=== PATIENT | male | born 1950 | race Caucasian/White ===

== ENCOUNTER 2020-08-28 07:59 | Day surgery (SDC) | payer MEDICARE, SELFPAY ==
[2020-08-25 20:43] VITALS: BMI 60.3
--- NOTE | 2020-08-27 10:51 | P.CONAN_ITS ---
Documented by User: Deisi Luevano 08/27/20 10:57 HPI - Anesthesia Eval Consult details Narrative: 70yo M for colonoscopy: screening [facility] Past Medical History Medical History Arthritis Back pain Bone spur of ankle Diabetes Hyperlipidemia Hypertension Sleep apnea with use of continuous positive airway pressure (CPAP) Surgical History Surgical History History of colonoscopy Hx of laparoscopic gastric banding Social History Social History Smoking Status: Never smoker Use of substances other than those prescribed or required for medical reasons: No Advance Directives: No Advance Directives Information Provided: No Advance Directives on File: No Meds Allergies Allergy/AdvReac Type Severity Reaction Status Date / Time No Known Allergies Allergy Verified 08/25/20 20:52 [No Known Allergies*] Home Medications Medication Instructions Recorded Confirmed Type Aspirin Low Dose 81 mg PO DAILY 08/25/20 08/25/20 History acetaminophen 1,000 mg PO DAILY 08/25/20 08/25/20 History amlodipine 1 tab PO DAILY 08/25/20 08/28/20 History atorvastatin 1 tab PO DAILY 08/25/20 08/25/20 History lisinopril-hydrochlorothiazide 1 tab PO BID 08/25/20 08/25/20 History metformin 1 tab PO BEDTIME 08/25/20 08/25/20 History Exam Exam Date and Time: August 27, 2020 1051 Height,Weight and Vital Signs: Height 6 ft 4 in Weight 225 kg Assessment and Plan Assessment Anesthesia Assessment: Chart Reviewed Documented by User: Melania Garcia 08/28/20 09:57 [facility] Past Medical History Medical History Arthritis Back pain Bone spur of ankle Diabetes Hyperlipidemia Hypertension Sleep apnea with use of continuous positive airway pressure (CPAP) Surgical History Surgical History History of colonoscopy Hx of laparoscopic gastric banding Social History Social History Smoking Status: Never smoker Use of substances other than those prescribed or required for medical reasons: No Advance Directives: No Advance Directives Information Provided: No Advance Directives on File: No Meds Allergies Allergy/AdvReac Type Severity Reaction Status Date / Time No Known Allergies Allergy Verified 08/25/20 20:52 [No Known Allergies*] Home Medications Medication Instructions Recorded Confirmed Type Aspirin Low Dose 81 mg PO DAILY 08/25/20 08/25/20 History acetaminophen 1,000 mg PO DAILY 08/25/20 08/25/20 History amlodipine 1 tab PO DAILY 08/25/20 08/28/20 History atorvastatin 1 tab PO DAILY 08/25/20 08/25/20 History lisinopril-hydrochlorothiazide 1 tab PO BID 08/25/20 08/25/20 History metformin 1 tab PO BEDTIME 08/25/20 08/25/20 History Exam Airway Mallampati Class: II TM Dist: >3cm Neck ROM: Full Assessment and Plan Assessment Anesthesia Assessment: Anesthesia Plan Discussed and Chart Reviewed Final Anesthetic Review NPO: Yes ASA Class: II Final Preanesthetic Review: No Changes in Pt Med Stat, Meds/Allgs Chart Reviewed, Consent Obtained/Reviewed and Anes Risks/Benef Reviewed Patient Risk: Intermediate Procedure Risk: Low Assessment/Block/Sedation in SS: Assess/Block/Sedation-SS Anesthetic Plan Anesthetic Plan: MAC: Disposition: Standard PACU
[2020-08-28 09:29] VITALS: BP 147/68; PULSE 64; RESP 16; TEMP 36.2; O2SAT 100
[2020-08-28 09:30] LABS: Glucose, Whole Blood 96 mg/dL (60-115)
[2020-08-28] MEDS: Lactated Ringers 1,000 ML 100 ML IVCONT (09:39)
--- NOTE | 2020-08-28 10:03 | MHC.SHP ---
Pre-Procedural Eval Section A The patient is an INPATIENT: No Changes since office visit: No Cold of Flu in the past 2 weeks, No New Medical Problems, No Changes in Medication and No Patient answered all questions The History & Physical has been completed within 30 days and I have reviewed it.: Yes Section B Chief Complaint: SCREENING Allergies: Allergies Allergy/AdvReac Type Severity Reaction Status Date / Time No Known Allergies Allergy Verified 08/25/20 20:52 [No Known Allergies*] Plan Patient has been examined and remains a candidate for the planned procedure
[2020-08-28 10:30] VITALS: BP 90/46; PULSE 67; RESP 16; TEMP 36.2; O2SAT 98
--- NOTE | 2020-08-28 10:34 | PM.OP ---
Brief Operative Note Date of procedure: 08/28/20 Pre-op diagnosis: screening Post-op diagnosis: same Procedure: colonoscopy Surgeon: Thaddeus Valencia Anesthesia: MAC Estimated blood loss (mL): 0 Pathology: none sent Condition: stable Disposition: PACU
[2020-08-28 10:43] VITALS: BP 103/58; PULSE 62; RESP 16; O2SAT 98
[2020-08-28 10:52] VITALS: BP 113/71; PULSE 68; RESP 16; TEMP 36.1; O2SAT 99
--- NOTE | 2020-08-28 10:53 | OP_ITS ---
SURGEON: Thaddeus Valencia MD INDICATIONS: Colon cancer screening. PREOPERATIVE DIAGNOSIS: POSTOPERATIVE DIAGNOSIS: PROCEDURE PERFORMED: Colonoscopy to the terminal ileum. ESTIMATED BLOOD LOSS: COMPLICATIONS: ANESTHESIA: ASSISTANTS: SPECIMENS: MEDICATIONS: Monitored anesthesia care. DESCRIPTION OF PROCEDURE: History and physical performed. The risks and benefits of the procedure were explained to the patient, and informed consent was obtained. The patient was placed in left lateral decubitus position. A digital rectal exam was performed and was found to be normal. The Olympus pediatric video colonoscope was introduced into the rectum and advanced to the cecum without difficulty. The cecum was identified by transillumination, palpation, and identification of ileocecal valve. Examination was performed. The scope was removed. He tolerated the procedure well and was taken to the recovery in stable condition. FINDINGS: The terminal ileum was normal. The visualized colonic mucosa was within normal limits without evidence of masses or ulcers. The quality of the prep was good. No polyps were identified. Retroflexed examination showed internal hemorrhoids. IMPRESSION: Normal colonoscopy. RECOMMENDATIONS: 1. Follow up as needed. 2. Repeat colonoscopy is recommended in 10 years for average risk individuals. This is optional based on age. MD ALESHIA Reeves/JENNIFER / [id number]
--- NOTE | 2020-08-28 11:18 | HO.POSTANES ---
Post Anesthesia Evaluation Post Anesthesia Evaluation Vital Signs: Vital Signs Temp Pulse Resp BP Pulse Ox 08/28/20 10:52 97 F 68 16 113/71 99 08/28/20 10:43 62 16 103/58 L 98 08/28/20 10:30 97.1 F 67 16 90/46 L 98 08/28/20 09:29 97.1 F 64 16 147/68 H 100 Anesthesia: Monitored Mental Status: Awake Pain Control: Satisfactory Nausea/Vomiting: None Hydration: Adequate Anesthesia-Related Issues: No Anes. Related Issues
== END 2020-08-28 11:36 | disposition home or self-care (01) ==
PROVIDERS: PCP Internal Medicine; Visit Provider Internal Medicine Gastroenterology
PROC: 0DJD8ZZ Inspection of Lower Intestinal Tract, Via Natural or Artificial Opening Endoscopic (ICD-10-PCS; CPT 45378; principal; 2020-08-28 10:00)
DX: I10 Essential (primary) hypertension (principal); Z12.11 Encounter for screening for malignant neoplasm of colon; K64.8 Other hemorrhoids; E78.00 Pure hypercholesterolemia, unspecified; I12.9 Hypertensive chronic kidney disease with stage 1 through stage 4 chronic kidney disease, or unspecified chronic kidney disease; E11.22 Type 2 diabetes mellitus with diabetic chronic kidney disease; N18.9 Chronic kidney disease, unspecified; Z79.84 Long term (current) use of oral hypoglycemic drugs; Z98.84 Bariatric surgery status; Z79.899 Other long term (current) drug therapy; Z87.891 Personal history of nicotine dependence
CPT/HCPCS: G0121; 82947

== ENCOUNTER 2020-12-25 11:01 | Outpatient (REF) | payer MEDICARE, SELFPAY ==
[2020-12-25 12:37] LABS: Alanine Aminotransferase 13 U/L (0-40); Albumin Level 4.2 g/dL (3.5-5.0); Alkaline Phosphatase 82 U/L (39-117); Aspartate Amino Transferase 15 U/L (5-37); Bilirubin Direct 0.3 mg/dL (0.0-0.5); Bilirubin Total 0.6 mg/dL (0.0-1.0); Cholesterol 137 mg/dL; Glucose Fasting 146 mg/dL (60-99); HDL Cholesterol 48 mg/dL; LDL Cholesterol Calculated 77 mg/dl; Total Protein 7.1 g/dL (6.5-8.0); Triglycerides 60 mg/dL
[2020-12-25 12:43] LABS: Reflex LDLD? No
[2020-12-25 13:25] LABS: Estimated Average Glucose 160 mg/dL; Hemoglobin A1c % 7.2 %
== END 2020-12-25 11:02 | disposition home or self-care (01) ==
LOC: HO.LNP 11:01
PROVIDERS: PCP Internal Medicine; Visit Provider Internal Medicine
DX: E11.40 Type 2 diabetes mellitus with diabetic neuropathy, unspecified (principal); E78.00 Pure hypercholesterolemia, unspecified
CPT/HCPCS: 80061; 80076; 82947; 83036

== ENCOUNTER → 2021-02-24 09:29 | Outpatient (BNVA) | payer MEDICARE, SELFPAY | PROVIDERS: PCP Internal Medicine; Visit Provider Internal Medicine | DX: R94.31 Abnormal electrocardiogram [ECG] [EKG] (principal); I35.0 Nonrheumatic aortic (valve) stenosis; E11.8 Type 2 diabetes mellitus with unspecified complications; I10 Essential (primary) hypertension; E78.5 Hyperlipidemia, unspecified | CPT/HCPCS: 93005; 99202 ==

== ENCOUNTER → 2021-04-22 07:14 | Outpatient (REF) | payer MEDICARE, SELFPAY ==
--- NOTE | ~2021-04-22 | NM_ITS ---
EXERCISE MYOCARDIAL PERFUSION STUDY INDICATION: Multiple risk factors for coronary disease; assess for ischemia TECHNIQUE: The patient was brought in for an exercise perfusion study on 04/22/2021. Patient performed exercise as per Jorgito protocol and was injected 35 mCi of sestamibi once target heart rate was achieved. Images were obtained using the SPECT gamma camera interlaced with the gating device. Images were obtained in supine position. Resting perfusion study was performed on 04/23/2021. Patient was administered 35 mCi of sestamibi intravenously at rest. Images were then obtained in supine position. Total DLP 84mGy-cm. Images were processed with the software and compared side to side in short axis, horizontal long axis and vertical long axis views. FINDINGS: Raw images were reviewed. The stress perfusion study showed diminished tracer uptake along the basal inferior wall. With CT attenuation correction this improves and hence suggestive of diaphragmatic attenuation artifact. The gated study shows mildly diminished LV systolic function with calculated LVEF of 49%. LV cavity is normal in size. The gated study shows normal wall thickening and contraction of segments. Resting study shows diminished tracer uptake along the basal inferior wall that improves with CT attenuation correction and hence suggesting diaphragmatic artifact. Gating at rest reveals normal wall motion with ejection fraction at 63%. The findings are consistent with fixed basal inferior defect suspected to be from diaphragmatic attenuation artifact. VA/VA cardiolite stress test IMPRESSION: 1. Myocardial perfusion imaging study shows normal myocardial perfusion. No definitive evidence of any ischemia or infarction. 2. Gated LVEF is 49% during stress and 63% during rest. Correlate with echocardiogram. 3. Transient ischemic dilatation not present. EKG component of the test reported separately.
--- NOTE | 2021-04-22 07:17 | CA_ITS ---
Transthoracic Echocardiogram Patient (Last, First, Middle): Nam King J Gender: Male Date of : 1950 Age: 71 Procedure Date: 04/22/2021 Procedure Type: Transthoracic Echocardiogram Location: OP Height: 193.04 cm Weight: 106.14 kg BSA: 2.37 m2 Heart Rate: bpm BP: 144 / 72 mmHg Cardiopulmonary Specialist: Gisel MD: Oral Escudero MD Symptoms: R94.31 - Abnormal electrocardiogram [ECG] [EKG] Study Quality: Fair ECG Rhythm: Sinus Conclusions: - The left ventricular systolic function is normal. The calculated ejection fraction is 61% by biplane method. - There is mild calcification of the aortic valve. - There is mild mitral annular calcification. Findings Left Ventricle Normal left ventricular cavity size. There is mildly increased left ventricular wall thickness. The left ventricular systolic function is normal. The calculated ejection fraction is 61% by biplane method. There is no evidence of regional wall motion abnormalities. E/E prime ratio is between 8 and 15 consistent with indeterminate filling pressures. Evidence suggests grade I (mild) diastolic dysfunction. Right Ventricle Normal right ventricular cavity size and systolic function. Atria Both atria are normal in size. Aortic Valve There is a normal trileaflet aortic valve. There is mild calcification of the aortic valve. There is no aortic valve stenosis. The mean gradient is 9 mmHg. There is no aortic valve regurgitation. Mitral Valve There is mild anterior mitral leaflet thickening. There is mild mitral annular calcification. There is trace mitral valve regurgitation. There is no mitral valve stenosis. Pulmonic Valve The pulmonic valve is likely normal. Tricuspid Valve Normal tricuspid valve structure. There is no tricuspid valve regurgitation. The pulmonary artery systolic pressure is not calculated. Great Vessels The asc aorta and aortic arch are normal in size. Venous The inferior vena cava is normal in size and collapses greater than 50% with inspiration. Pericardium/Pleural There is no evidence of pericardial effusion. Prior Study Comparison No prior study available for comparison. Measurements 2D Linear Measurements RVIDd: 3.32 RVIDd Index: 1.40 IVSd: 1.03 0.6-0.9/0.6-1.0 cm LVIDd: 4.97 3.9-5.3/4.2-5.9 cm LVIDd Index: 2.10 2.4-3.2/2.2-3.1 cm/m2 LVIDs: 3.40 2.0-3.6 cm LVPWd: 1.23 0.7-1.1 cm Ao Root: 3.30 2.1-3.5 cm LA Diam: 4.40 2.7-3.8/3.0-4.0 cm LAIDs Index: 1.86 1.5-2.3 cm/m2 LV Mass: 265.38 67-162/88-224 g LV Mass Index: 111.97 43-95/49-115 g/m2 LVOT Diam: 2.10 3.0+(-)1.3 cm 2D Systolic Function EF 4C: 59.60 >55% EF 2C: 66.40 >55% EF BiP: 61.40 >55% Mitral Valve MV VTI: 0.44 MV Pk Clive: 1.21 MV Mn Clive: 0.82 MV Pk Grad: 6.00 MV Mn Grad: 3.00 MV Pk E: 0.83 MV PK A: 1.10 MV Decel Time: 295.00 E/A: 0.80 E'Lateral: 6.64 E'Medial: 4.79 E/E' Med: 17.30 E/E' Lat: 12.50 PHT: 109.00 MVA PHT: 2.02 MVA Continuity: 2.07 Decel Miner: 2.78 Aortic Valve AoV Pk Clive: 2.01 AoV Mn Clive: 1.41 AoV VTI: 0.43 AoV Pk Grad: 16.00 Aov Mn Grad: 9.00 JENNIFER Cont.VTI: 2.12 LVOT LVOT Pk Clive: 1.11 LVOT Mn Clive: 0.77 LVOT VTI: 0.26 LVOT Pk Grad: 5.00 LVOT Mn Grad: 3.00 LVOT Diam: 2.10 LVOT Area: 3.46 Diastolic Function MV Pk E: 0.83 MV Pk A: 1.10 E/A: 0.80 E'Medial: 4.79 E/E' Med: 17.30 E' Laterial: 6.64 E/E' Lat: 12.50 Tricuspid Valve RA Press: 3.00 Great Vessels Aorta Ao Root-2D: 3.30 2.0-3.7 cm Ao Asc: 3.10 2.1-3.4 cm Ao Arch: 3.20 Updated in Other Vendor System with Status of Final Oral Escudero MD electronically signed on 04/24/2021 12:38:40 PM with status of Final
--- NOTE | 2021-04-22 07:19 | CA_ITS ---
Acquisition Time: 2021-04-22 08:15:38 Total Exercise Time: 00:07:45 Test Indications: ABN EKG Medications: SEE CHART Protocol: NAIMA Max HR: 146 BPM 98% of Pred: 148 BPM Max BP: 204/070 mmHG Max Work Load: 9.7 METS Exercise stress test with exercise 7 min 45 sec of Naima protocol, without anginal symptoms, with isolated PVCs, with hypertensive response to exercise with max BP 204/70, with nondiagnostic EKG for ischemia due to baseline abnormality. Nuclear images pending. Test reviewed with Dr Escudero Referred By: Oral Escudero Overread By: JOHANNA CARDOZA
--- NOTE | 2021-04-22 08:00 | ECG_ITS ---
Hook-up date: 2021-04-22 09:39:00 Duration: 23:15:00 Test Indications: ABN EKG, NON-RHEUM AORTIC VALVE Medications: 70619 QRS complexes 1926 Ventricular ectopics which represent 1 % of total QRS comp. 3 Supraventricular ectopics which represent <1 % of total QRS comp. * Paced QRS complexs which represent % of total QRS comp. VENTRICULAR ECTOPY 1926 Isolated 9 Bigeminal Cycles 0 Couplets 0 Runs 0 Beats in Runs * Beats LONGEST at * BPM at :: -- * Beats FASTEST at * BPM at :: -- SUPRAVENTRICULAR ECTOPY 3 Isolated 0 Couplets 0 Runs 0 Beats in Runs * Beats LONGEST at * BPM at :: -- * Beats FASTEST at * BPM at :: -- HEART RATES 46 MIN at 04:05:58 2021-04-23 72 AVG 123 MAX at 10:49:58 2021-04-22 LONGEST RR 1.5680 secs at 04:05:51 2021-04-23 S-T LEVELS Channel 1 - 128 mm at 09:39:00 2021-04-22 - 128 mm at 09:39:00 2021-04-22 Channel 2 - 128 mm at 09:39:00 2021-04-22 - 128 mm at 09:39:00 2021-04-22 Channel 3 - 128 mm at 02:85:81 -- - 128 mm at 02:85:81 Basic rhythm Normal sinus rhythm No long pause or profound bradycardia Baseline BBB Frequent Premature ventricular complexes Patient did not report any symptoms in the diary Referred By: Oral Escudero Overread By: KATHRYN PELAYO MD
== END ==
LOC: HO.CARD 07:14
PROVIDERS: Visit Provider Internal Medicine
DX: R94.31 Abnormal electrocardiogram [ECG] [EKG] (principal); I35.0 Nonrheumatic aortic (valve) stenosis
CPT/HCPCS: 78452; 93017; 93225; 93226; 93306; A9500

== ENCOUNTER 2021-06-15 10:40 | Outpatient (REF) | payer MEDICARE, SELFPAY ==
[2021-06-15 10:43] LABS: MANUAL DIFF FLAG NO
[2021-06-15 11:19] LABS: Basophils Percent Auto 0.5 % (0-2); Eosinophils Absolute Auto 0.3 X10*3/uL (0.0-0.4); Eosinophils Percent Auto 5.2 % (0-4); Hematocrit 37.9 % (42-52); Hemoglobin 12.3 g/dl (14.0-18.0); Imm Gran Abs Auto 0.01 X10*3/uL (0.00-0.03); Imm Gran Pct Auto 0.2 % (0.0-0.4); Lymphocytes Absolute Auto 2.4 X10*3/uL (1.2-4.9); Lymphocytes Percent Auto 36.4 % (20-40); Mean Corpuscular HGB Conc 32.5 g/dl (31.0-36.0); Mean Corpuscular Hemoglobin 30.3 pg (27.0-33.0); Mean Corpuscular Volume 93.3 fL (80-98); Mean Platelet Volume 11.3 fL (9.4-12.4); Monocytes Absolute Auto 0.6 X10*3/uL (0.1-1.2); Monocytes Percent Auto 9.2 % (2-11); Neutrophils Absolute Auto 3.2 X10*3/uL (2.0-8.3); Neutrophils Percent Auto 48.5 % (45-73); Platelet Count 189 X10*3/uL (160-400); Red Blood Count 4.06 X10*6/uL (4.60-5.80); Red Cell Distribution Width 14.2 % (11.0-16.0); White Blood Count 6.6 X10*3/uL (4.8-10.8)
[2021-06-15 11:25] LABS: Estimated Average Glucose 169 mg/dL; Hemoglobin A1c % 7.5 %
[2021-06-15 11:33] LABS: Glucose Urine UA NEG (NEG); Leukocyte Esterase Urine NEG (NEG); Nitrite Urine NEG (NEG); Specific Gravity - Urine 1.025 (1.005-1.025); Urine Blood NEG (NEG); Urine Ketones NEG (NEG); Urine Protein NEG (NEG-TRACE)
[2021-06-15 11:52] LABS: Appearance Urine CLEAR; Color Urine YELLOW
[2021-06-15 11:56] LABS: Alanine Aminotransferase 16 U/L (0-40); Albumin Level 4.1 g/dL (3.5-5.0); Alkaline Phosphatase 64 U/L (39-117); Anion Gap 10 (12-20); Aspartate Amino Transferase 15 U/L (5-37); Bilirubin Total 0.4 mg/dL (0.0-1.0); Blood Urea Nitrogen 26 mg/dL (9-16); Calcium 9.5 mg/dL (8.4-10.2); Carbon Dioxide 30 mmol/L (22-29); Chloride 105 mmol/L (96-108); Cholesterol 135 mg/dL; Estimated Glomerular Filt Rate > 60; Glucose Fasting 135 mg/dL (60-99); HDL Cholesterol 49 mg/dL; LDL Cholesterol Calculated 73 mg/dl; Sodium 141 mmol/L (135-145); Total Protein 6.6 g/dL (6.5-8.0); Triglycerides 69 mg/dL
[2021-06-15 12:06] LABS: PSA,Total (Free>4and<10) 1.09 ng/mL (0.00-4.00)
[2021-06-15 12:11] LABS: Creatinine Urine 105.75 mg/dL; Microalbum/Creatinine Ratio Ur 15.1 ug/mg cr
[2021-06-15 12:41] LABS: Reflex LDLD? No
== END 2021-06-15 10:41 | disposition home or self-care (01) ==
LOC: HO.LNP 10:40
PROVIDERS: Visit Provider Internal Medicine
DX: Z00.00 Encounter for general adult medical examination without abnormal findings (principal); E11.9 Type 2 diabetes mellitus without complications; E78.00 Pure hypercholesterolemia, unspecified
CPT/HCPCS: 80053; 80061; 81003; 82043; 83036; 84153; 85025

== ENCOUNTER → 2021-06-17 07:45 | Outpatient (BNVA) | payer MEDICARE, SELFPAY | PROVIDERS: PCP Internal Medicine; Visit Provider Internal Medicine | DX: R94.31 Abnormal electrocardiogram [ECG] [EKG] (principal); I10 Essential (primary) hypertension; I35.8 Other nonrheumatic aortic valve disorders; E78.5 Hyperlipidemia, unspecified; E11.8 Type 2 diabetes mellitus with unspecified complications | CPT/HCPCS: 99212 ==

== ENCOUNTER 2021-07-16 10:34 | Outpatient (REF) | payer MEDICARE, SELFPAY ==
[2021-07-16 12:19] LABS: Blood Urea Nitrogen 24 mg/dL (9-16)
== END 2021-07-16 10:35 | disposition home or self-care (01) ==
LOC: HO.LNP 10:34
PROVIDERS: Visit Provider Internal Medicine
DX: R79.9 Abnormal finding of blood chemistry, unspecified (principal)
CPT/HCPCS: 84520

== ENCOUNTER 2021-10-15 10:11 | Outpatient (REF) | payer MEDICARE, SELFPAY ==
[2021-10-15 10:45] LABS: Blood Urea Nitrogen 27 mg/dL (9-16)
== END 2021-10-15 10:12 | disposition home or self-care (01) ==
LOC: HO.LNP 10:11
PROVIDERS: Visit Provider Internal Medicine
DX: R79.9 Abnormal finding of blood chemistry, unspecified (principal)
CPT/HCPCS: 84520

== ENCOUNTER 2021-11-15 10:47 | Outpatient (REF) | payer MEDICARE, SELFPAY ==
[2021-11-15 11:43] LABS: Blood Urea Nitrogen 31 mg/dL (9-16)
== END 2021-11-15 10:48 | disposition home or self-care (01) ==
LOC: HO.LNP 10:47
PROVIDERS: Visit Provider Internal Medicine
DX: R79.9 Abnormal finding of blood chemistry, unspecified (principal)
CPT/HCPCS: 84520

== ENCOUNTER 2021-12-17 11:00 | Outpatient (REF) | payer MEDICARE, SELFPAY ==
[2021-12-17 11:34] LABS: Alanine Aminotransferase 13 U/L (0-40); Albumin Level 4.5 g/dL (3.5-5.0); Alkaline Phosphatase 72 U/L (39-117); Aspartate Amino Transferase 15 U/L (5-37); Bilirubin Direct 0.3 mg/dL (0.0-0.5); Bilirubin Total 0.8 mg/dL (0.0-1.0); Cholesterol 136 mg/dL; Glucose Fasting 143 mg/dL (60-99); HDL Cholesterol 46 mg/dL; LDL Cholesterol Calculated 76 mg/dl; Total Protein 7.2 g/dL (6.5-8.0); Triglycerides 73 mg/dL
[2021-12-17 11:38] LABS: Estimated Average Glucose 166 mg/dL; Hemoglobin A1C 195.7168 umol/L; Hemoglobin A1c % 7.4 %
[2021-12-17 13:34] LABS: Reflex LDLD? No
== END 2021-12-17 11:01 | disposition home or self-care (01) ==
LOC: HO.LNP 11:00
PROVIDERS: Visit Provider Internal Medicine
DX: E11.9 Type 2 diabetes mellitus without complications (principal); E78.00 Pure hypercholesterolemia, unspecified
CPT/HCPCS: 80061; 80076; 82947; 83036

== ENCOUNTER 2022-02-15 12:20 | Outpatient (REF) | payer MEDICARE, SELFPAY ==
[2022-02-15 13:25] LABS: Blood Urea Nitrogen 19 mg/dL (9-16); Estimated Glomerular Filt Rate > 60
== END 2022-02-15 12:21 | disposition home or self-care (01) ==
LOC: HO.LNP 12:20
PROVIDERS: Visit Provider Internal Medicine
DX: R79.9 Abnormal finding of blood chemistry, unspecified (principal)
CPT/HCPCS: 82565; 84520

== ENCOUNTER → 2022-05-03 09:22 | Outpatient (BNVA) | payer MEDICARE, SELFPAY | PROVIDERS: PCP Internal Medicine; Visit Provider Surgery Vascular Surgery | DX: I83.12 Varicose veins of left lower extremity with inflammation (principal) | CPT/HCPCS: 99202 ==

== ENCOUNTER 2022-05-06 09:52 | Outpatient (REF) | payer MEDICARE, SELFPAY ==
--- NOTE | ~2022-05-06 | US_ITS ---
EXAMINATION: US LOWER EXTREMITY VENOUS (REFLUX EXAM), BILATERAL CLINICAL INDICATION: Chronic venous insufficiency with lower extremity varicose veins and inflammation. History of bilateral vein stripping COMPARISON: None. TECHNIQUE: Color flow triplex imaging and compression Doppler was performed to evaluate both the deep and the superficial systems bilaterally. To evaluate the superficial system, the examination was performed in the upright position. Color-flow Doppler ultrasound and compression ultrasound were utilized. In addition, maneuvers were utilized to demonstrate reflux. FINDINGS: 1. DEEP VENOUS ULTRASOUND OF THE RIGHT LOWER EXTREMITY: Common Femoral Vein: Compressible, normal respiratory variation and augmented flow. Femoral Vein: Compressible, normal color flow and augmentation. Popliteal Vein: Compressible, normal augmentation. Deep Reflux: There is reflux in the mid superficial femoral vein measuring 1.7 seconds There is no evidence of a Be's cyst. 2. SUPERFICIAL ULTRASOUND WITH DOPPLER OF RIGHT LOWER EXTREMITY: GREAT SAPHENOUS VEIN: Not visualized consistent with prior history of vein stripping DUPLICATED GREAT SAPHENOUS VEIN: None SMALL SAPHENOUS VEIN: Proximal: 1.3 mm; No evidence of reflux. Distal: Not visualized VEIN OF GIACOMINI: None Imaged. PERFORATORS: None Imaged VARICOSITIES: Multiple varicose veins are seen throughout to the right thigh and calf. There are some varicosities in the region of the old great saphenous vein sheath in the proximal to distal thigh which could represent neovascularity, measuring up to 3.2 mm with reflux measuring up to 3.2 seconds. There is a posterior varicose vein in the thigh, popliteal fossa and calf measuring 5 mm with reflux of greater than 3 seconds 3. DEEP VENOUS ULTRASOUND OF THE LEFT LOWER EXTREMITY: Common Femoral Vein: Compressible, normal respiratory variation and augmented flow. Femoral Vein: Compressible, normal color flow and augmentation. Popliteal Vein: Compressible, normal augmentation. Deep Reflux: There is reflux in the common femoral vein measuring 2.1 seconds. There is reflux in the mid superficial femoral vein measuring 1.8 seconds. There is no evidence of a Be's cyst. 4. SUPERFICIAL ULTRASOUND WITH DOPPLER OF LEFT LOWER EXTREMITY: GREAT SAPHENOUS VEIN: Not visualized consistent with prior vein stripping DUPLICATED GREAT SAPHENOUS VEIN: None SMALL SAPHENOUS VEIN: Proximal: 2.5 mm; No evidence of reflux. Distal: 2.3 mm; No evidence of reflux. VEIN OF GIACOMINI: None Imaged. PERFORATORS: None Imaged VARICOSITIES: Varicose vein branches arising directly from the saphenofemoral junction in the area of the groin measuring 8 8 mm with reflux measuring 2 seconds. Large varicosities are extending distally through the thigh, knee and into the calf ranging in size from a 2.9 to 6.2 mm. Severe reflux is seen throughout these varicosities ranging from 2.5 to 3.5 seconds. Multiple large varicosities are also seen throughout the thigh measuring 5 to 7 mm with reflux measuring up to 1.2 seconds. Varicose vein branches are seen arising from a second shift supervisor in the mid superficial femoral vein measuring 7 mm without reflux. Varicose veins seen in the left calf arising from a second shift supervisor vein off the posterior tibial vein measuring of 4.6 mm with reflux of greater than 3 seconds. Large varicosities seen in the posterior calf measuring 4.3 mm with reflux of greater than 3 seconds US/US venous duplex LE BI IMPRESSION: 1. No evidence of deep venous thrombosis bilaterally. There is evidence of moderate to deep venous reflux as described above 2. Bilateral great saphenous veins are not visualized consistent with history of prior vein stripping 3. Extensive the recurrent subcutaneous varicose veins throughout the bilateral lower extremities, left worse than right.
== END 2022-05-06 09:53 | disposition home or self-care (01) ==
LOC: HO.US 09:52
PROVIDERS: Visit Provider Surgery Vascular Surgery
DX: I83.12 Varicose veins of left lower extremity with inflammation (principal)
CPT/HCPCS: 93970

== ENCOUNTER → 2022-05-12 15:09 | Outpatient (BNVA) | payer MEDICARE, SELFPAY | PROVIDERS: PCP Internal Medicine; Visit Provider Surgery Vascular Surgery | DX: I83.12 Varicose veins of left lower extremity with inflammation (principal) | CPT/HCPCS: 99212 ==

== ENCOUNTER 2022-05-30 06:57 | Day surgery (SDC) | payer MEDICARE, SELFPAY ==
[2022-05-24 13:26] VITALS: BMI 29.0
--- NOTE | 2022-05-27 10:02 | P.CONAN_ITS ---
Documented by User: Deisi Luevano NP 05/27/22 10:07 HPI - Anesthesia Eval Consult details Narrative: 72yo M for Left Micro Phlebectomy PMFSH Active Problems Active Problems: All Active Problems (Updated 05/24/22 @ 13:17 by Di Jeong RN) Abnormal EKG (Acute) Aortic valve sclerosis (Acute) Varicose veins of left lower extremity with inflammation (Acute) Other and unspecified hyperlipidemia (Acute) Essential hypertension (Acute) Type 2 diabetes mellitus with unspecified complications (Acute) Past Medical History Medical History (Updated 05/24/22 @ 13:17 by Di Jeong, RN) Arthritis Back pain Bone spur of ankle Diabetes Essential hypertension Hyperlipidemia Hypertension Other and unspecified hyperlipidemia Sleep apnea with use of continuous positive airway pressure (CPAP) Trace mitral valve regurgitation Type 2 diabetes mellitus with unspecified complications Family History Family History Father No problems noted. Mother No problems noted. Surgical History Surgical History (Updated 05/24/22 @ 13:20 by Di Jeong RN) History of colonoscopy Hx of laparoscopic gastric banding Social History Social History Are you a primary child care director to a significant other at home: No Do you presently have visiting nurse or other home services: No Alcohol intake: current Alcohol intake frequency: holidays/special occasions only Patient Tobacco Use Status: Former Tobacco user Quit Date: many yrs ago Tobacco use type: Cigarette Years Smoked: 5 +/- Second Hand Smoke Exposure: No Meds Allergies Allergy/AdvReac Type Severity Reaction Status Date / Time No Known Allergies Allergy Verified 05/24/22 13:20 [No Known Allergies*] Home Medications Medication Instructions Recorded Confirmed Last Taken Type Aspirin Low Dose 81 mg PO DAILY 08/25/20 05/24/22 08/21/20 History atorvastatin 80 mg tablet 1 tab PO DAILY 08/25/20 05/24/22 Unknown History lisinopril 20 1 tab PO BID 08/25/20 05/24/22 Unknown History mg-hydrochlorothiazide 12.5 mg tablet metformin 500 mg tablet,extended 1 tab PO BEDTIME 08/25/20 05/24/22 Unknown History release 24 hr amlodipine 10 mg tablet 10 mg PO DAILY 06/17/21 05/24/2205/30/22 History Exam Exam Date and Time: May 27, 2022 1002 Height,Weight and Vital Signs: Height 6 ft 4 in Weight 107.955 kg Narrative Narrative: US venous duplex LE 05/2022 IMPRESSION: ? 1. No evidence of deep venous thrombosis bilaterally. There is evidence of moderate to deep venous reflux as described above 2. Bilateral great saphenous veins are not visualized consistent with history of prior vein stripping 3. Extensive the recurrent subcutaneous varicose veins throughout the bilateral lower extremities, left worse than right. ECHO 2020 Conclusions: - The left ventricular systolic function is normal.? The ? calculated ejection fraction is 61% by biplane method. ? - There is mild calcification of the aortic valve. ? - There is mild mitral annular calcification.? ? Holter 2020 Basic rhythm Normal sinus rhythm No long pause or profound bradycardia Baseline BBB Frequent Premature ventricular complexes Patient did not report any symptoms in the diary NM cardiolite stress test 2020 IMPRESSION: ? 1.? Myocardial perfusion imaging study shows normal myocardial perfusion. No definitive evidence of any ischemia or infarction. 2.? Gated LVEF is 49% during stress and 63% during rest. Correlate with echocardiogram. 3. Transient ischemic dilatation not present. ? EKG component of the test reported separately. Assessment and Plan Assessment Anesthesia Assessment: Chart Reviewed Documented by User: Cristhian Fried MD 05/30/22 14:23 [facility] Past Medical History Medical History (Updated 05/24/22 @ 13:17 by Di Jeong RN) Arthritis Back pain Bone spur of ankle Diabetes Essential hypertension Hyperlipidemia Hypertension Other and unspecified hyperlipidemia Sleep apnea with use of continuous positive airway pressure (CPAP) Trace mitral valve regurgitation Type 2 diabetes mellitus with unspecified complications Family History Family History Father No problems noted. Mother No problems noted. Family history of problems with anesthesia: No Surgical History Surgical History (Updated 05/24/22 @ 13:20 by Di Jeong RN) History of colonoscopy Hx of laparoscopic gastric banding History of Problems with Anesthesia: No Social History Social History Are you a primary child care director to a significant other at home: No Do you presently have visiting nurse or other home services: No Alcohol intake: current Alcohol intake frequency: holidays/special occasions only Patient Tobacco Use Status: Former Tobacco user Quit Date: many yrs ago Tobacco use type: Cigarette Years Smoked: 5 +/- Second Hand Smoke Exposure: No Meds Allergies Allergy/AdvReac Type Severity Reaction Status Date / Time No Known Allergies Allergy Verified 05/24/22 13:20 [No Known Allergies*] Home Medications Medication Instructions Recorded Confirmed Last Taken Type Aspirin Low Dose 81 mg PO DAILY 08/25/20 05/24/22 08/21/20 History atorvastatin 80 mg tablet 1 tab PO DAILY 08/25/20 05/24/22 Unknown History lisinopril 20 1 tab PO BID 08/25/20 05/24/22 Unknown History mg-hydrochlorothiazide 12.5 mg tablet metformin 500 mg tablet,extended 1 tab PO BEDTIME 08/25/20 05/24/22 Unknown History release 24 hr amlodipine 10 mg tablet 10 mg PO DAILY 06/17/21 05/24/22 05/30/22 History Exam Airway Mallampati Class: III TM Dist: >3cm Neck ROM: Full Loose/Missing/Broken Teeth: Yes (Implants , crowns ,front chipped teeth ) Heart: S1,S2 Lungs: b/l breath sounds Assessment and Plan Assessment Anesthesia Assessment: Anesthesia Plan Discussed Final Anesthetic Review Family History of Problems with Anesthesia: No History of Problems with Anesthesia: No NPO: Yes ASA Class: II Final Preanesthetic Review: Meds/Allgs Chart Reviewed, Consent Obtained/Reviewed and Anes Risks/Benef Reviewed Patient Risk: Intermediate Procedure Risk: Intermediate Anesthetic Plan Anesthetic Plan: GA and Neuraxial Block: Disposition: Standard PACU
[2022-05-30] VITALS (8 sets, daily range): BP systolic 140–151; BP diastolic 62–72; PULSE 52–59; RESP 16–18; TEMP 36.1–36.3; O2SAT 98–100
[2022-05-30 08:24] LABS: Hematocrit 40.3 % (42.0-52.0); Hemoglobin 13.1 g/dl (14.0-18.0); Mean Corpuscular HGB Conc 32.5 g/dl (31.0-36.0); Mean Corpuscular Hemoglobin 29.7 pg (27.0-33.0); Mean Corpuscular Volume 91.4 fL (80.0-98.0); Mean Platelet Volume 11.1 fL (9.4-12.4); Platelet Count 191 X10*3/uL (160-400); Red Blood Count 4.41 X10*6/uL (4.60-5.80); Red Cell Distribution Width 13.8 % (11.0-16.0); White Blood Count 6.3 X10*3/uL (4.8-10.8)
[2022-05-30 08:28] LABS: Prothrombin Time 11.7 SEC (10.0-13.1)
[2022-05-30 08:30] LABS: Partial Thromboplastin Time 35.5 SEC (24.1-38.0)
[2022-05-30 08:38] LABS: Anion Gap 11 (12-20); Blood Urea Nitrogen 22 mg/dL (9-16); Calcium 9.4 mg/dL (8.4-10.2); Carbon Dioxide 28 mmol/L (22-29); Chloride 105 mmol/L (96-108); Creatinine Clr Calc Pharmacy 76.4; Estimated Glomerular Filt Rate > 60; Glucose Random 139 mg/dL (60-115); Potassium 4.3 mmol/L (3.3-5.1); Sodium 140 mmol/L (135-145)
[2022-05-30] MEDS: Lactated Ringers 1,000 ML 100 ML IVCONT (08:54)
[2022-05-30 08:59] LABS: Glucose, Whole Blood 124 mg/dL (60-115)
--- NOTE | 2022-05-30 12:26 | P.OP_ITS ---
Operative Note Operative Note Date of Service: 05/30/22 Narrative: Operative note by [facility] Preoperative diagnosis: left leg varicose veins with inflammation Postoperative diagnosis: same Procedure:1. left leg microphlebectomy (23) 2. ligation of venous cluster Surgeon:Philip Garrido M.D. 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 He now presents for operative intervention. The patient has signed the informed consent after reviewing risks, complications, benefits, and alternatives previously discussed with the patient. The patient was given the opportunity to ask any additional questions or voice any concerns. All questions were answered to the patient's satisfaction. Procedure in detail: Varicose veins were marked in the standing position on the left leg and the patient was then placed in the supine position. The left lower extremity was prepared and draped to allow knee flexion in the sterile field. The patient had large superficial varicose veins with significant symptoms of pain. It was therefore determined to perform microphlebectomies of the clusters of varicose veins. The patient had bulging varicose veins which were previously marked in the standing position. A small stab incision was made longitudinally directly overlying the varicose vein in the calf and the varicose vein was grasped with a hemostat aided by a vein hook. It was then dissected as far proximally and distally as possible and avulsed. A total of 23 stab incisions were made and the procedure of stab phlebectomies was repeated 23 times. On the medial aspect of the calf there was a cluster that was identified. We identified the base and cut down on that. We suture ligated this with a 3-0 poly sore. Residual varicosities of this cluster were then removed. Hemostasis was checked and stab incision sites were closed with steri-strips and sterile dressing was given with gauze and krilex wrap followed by an rupa bandage. There were no complications and blood loss was minimal. Post-Op instructions were given and a follow-up appointment was recommended. This note is constructed using voice recognition software. While every effort has been made to ensure accuracy, hand alterations tailor errors may have been included. Thank you for allowing me to participate in the care of your patient. Yours sincerely, Philip Garrido MD, FACS, R.P.V.I.
[2022-05-30] MEDS: oxyCODONE HCl Immed Release 5 MG TABLET PO (12:28)
[2022-05-30] MEDS: Acetaminophen 325 MG TABLET 650 MG PO (12:28)
== END 2022-05-30 13:51 | disposition home or self-care (01) ==
PROVIDERS: Visit Provider Surgery Vascular Surgery
PROC: (CPT 37766; principal; 2022-05-30 10:40)
DX: I83.12 Varicose veins of left lower extremity with inflammation (principal); M79.662 Pain in left lower leg; M19.90 Unspecified osteoarthritis, unspecified site; I10 Essential (primary) hypertension; G47.33 Obstructive sleep apnea (adult) (pediatric); E78.5 Hyperlipidemia, unspecified; E11.9 Type 2 diabetes mellitus without complications; Z79.84 Long term (current) use of oral hypoglycemic drugs; Z79.82 Long term (current) use of aspirin; Z79.899 Other long term (current) drug therapy; Z99.89 Dependence on other enabling machines and devices; Z87.891 Personal history of nicotine dependence
CPT/HCPCS: 37766; 37785; 36415; 80048; 82947; 85027; 85610; 85730; 88304; J0690; J1100; J2405; J2795; J3010

== ENCOUNTER → 2022-06-20 08:12 | Outpatient (BNVA) | payer MEDICARE, SELFPAY | PROVIDERS: PCP Internal Medicine; Referring Provider Internal Medicine; Visit Provider Internal Medicine | DX: I44.30 Unspecified atrioventricular block (principal); I45.4 Nonspecific intraventricular block; I35.8 Other nonrheumatic aortic valve disorders; I10 Essential (primary) hypertension; E78.5 Hyperlipidemia, unspecified; E11.8 Type 2 diabetes mellitus with unspecified complications; R94.31 Abnormal electrocardiogram [ECG] [EKG]; Z79.899 Other long term (current) drug therapy | CPT/HCPCS: 93005; 99212 ==

== ENCOUNTER 2022-06-20 10:25 | Outpatient (REF) | payer MEDICARE, SELFPAY ==
[2022-06-20 10:38] LABS: MANUAL DIFF FLAG NO
[2022-06-20 12:11] LABS: Appearance Urine CLEAR; Basophils Percent Auto 0.7 % (0-2); Color Urine YELLOW; Eosinophils Absolute Auto 0.4 X10*3/uL (0.0-0.4); Glucose Urine UA NEG (NEG); Hematocrit 39.9 % (42.0-52.0); Hemoglobin 13.1 g/dl (14.0-18.0); Imm Gran Abs Auto 0.01 X10*3/uL (0.00-0.03); Imm Gran Pct Auto 0.2 % (0.0-0.4); Leukocyte Esterase Urine NEG (NEG); Lymphocytes Absolute Auto 1.8 X10*3/uL (1.2-4.9); Lymphocytes Percent Auto 32.1 % (20-40); Mean Corpuscular HGB Conc 32.8 g/dl (31.0-36.0); Mean Corpuscular Hemoglobin 30.2 pg (27.0-33.0); Mean Corpuscular Volume 91.9 fL (80.0-98.0); Monocytes Absolute Auto 0.6 X10*3/uL (0.1-1.2); Monocytes Percent Auto 9.9 % (2-11); Neutrophils Absolute Auto 2.8 x10*3/uL (2.0-8.3); Neutrophils Percent Auto 50.1 % (45-73); Nitrite Urine NEG (NEG); PH 5.5 (5.0-8.0); Platelet Count 227 X10*3/uL (160-400); Red Blood Count 4.34 X10*6/uL (4.60-5.80); Red Cell Distribution Width 13.7 % (11.0-16.0); Specific Gravity - Urine >= 1.030 (1.005-1.025); Urine Blood NEG (NEG); Urine Ketones NEG (NEG); Urine Protein NEG (NEG-TRACE); White Blood Count 5.6 X10*3/uL (4.8-10.8)
[2022-06-20 12:16] LABS: Estimated Average Glucose 157 mg/dL; Hemoglobin A1c % 7.1 %
[2022-06-20 12:21] LABS: Alanine Aminotransferase 13 U/L (0-40); Albumin Level 4.5 g/dL (3.5-5.0); Alkaline Phosphatase 82 U/L (39-117); Anion Gap 15 (12-20); Aspartate Amino Transferase 13 U/L (5-37); Bilirubin Total 0.8 mg/dL (0.0-1.0); Blood Urea Nitrogen 28 mg/dL (9-16); Calcium 9.3 mg/dL (8.4-10.2); Carbon Dioxide 28 mmol/L (22-29); Chloride 103 mmol/L (96-108); Cholesterol 138 mg/dL; Estimated Glomerular Filt Rate 57; Glucose Fasting 136 mg/dL (60-99); HDL Cholesterol 45 mg/dL; LDL Cholesterol Calculated 76 mg/dl; Potassium 3.9 mmol/L (3.3-5.1); Sodium 142 mmol/L (135-145); Total Protein 7.1 g/dL (6.5-8.0); Triglycerides 88 mg/dL
[2022-06-20 12:36] LABS: PSA,Total (Free>4and<10) 1.41 ng/mL (0.00-4.00)
[2022-06-20 12:40] LABS: Hyaline Casts Urine 0-2 /LPF; RBC Urine 0-2 /HPF (0); Squamous Epithelial Cell Urine TRACE /LPF; WBC Urine 0-2 /HPF (0-4)
[2022-06-20 12:50] LABS: Creatinine Urine 116.86 mg/dL; Microalbum/Creatinine Ratio Ur 7.7 ug/mg cr
== END 2022-06-20 10:26 | disposition home or self-care (01) ==
LOC: HO.LNP 10:25
PROVIDERS: Visit Provider Internal Medicine
DX: Z00.00 Encounter for general adult medical examination without abnormal findings (principal); I10 Essential (primary) hypertension; E11.9 Type 2 diabetes mellitus without complications; E78.00 Pure hypercholesterolemia, unspecified; Z12.5 Encounter for screening for malignant neoplasm of prostate
CPT/HCPCS: 80053; 80061; 81001; 82043; 83036; 84153; 85025

== ENCOUNTER → 2022-06-21 11:21 | Outpatient (BNVA) | payer MEDICARE, SELFPAY | PROVIDERS: PCP Internal Medicine; Visit Provider Surgery Vascular Surgery | DX: I83.12 Varicose veins of left lower extremity with inflammation (principal); Z98.890 Other specified postprocedural states | CPT/HCPCS: 99212 ==

== ENCOUNTER → 2022-07-04 10:32 | Outpatient (REF) | payer MEDICARE, SELFPAY ==
--- NOTE | 2022-07-04 10:39 | HM_ITS ---
* Total monitoring time 6 days and 23 hours. * Underlying rhythm is sinus. Average rate 74/Min. Range 51 to 123/Min. * Evidence of sleep time Mobitz 1 second-degree block, ventricular rate 51/Min. * Rare ventricular ectopy with minimal burden. * One episode of dizziness/presyncope associated with sinus rhythm at 83/Min. MTDD
== END ==
LOC: HO.CARD 10:32
PROVIDERS: Visit Provider Internal Medicine
DX: I45.4 Nonspecific intraventricular block (principal)
CPT/HCPCS: 93242

== ENCOUNTER 2022-09-08 16:14 | Outpatient (REF) | payer MEDICARE, SELFPAY ==
[2022-09-08 16:31] LABS: Uric Acid 6.7 mg/dL (3.4-7.0)
== END 2022-09-08 16:15 | disposition home or self-care (01) ==
LOC: HO.LNP 16:14
PROVIDERS: Visit Provider Internal Medicine
DX: M10.079 Idiopathic gout, unspecified ankle and foot (principal)
CPT/HCPCS: 84550

== ENCOUNTER → 2022-12-13 09:55 | Outpatient (BNVA) | payer MEDICARE, SELFPAY | PROVIDERS: PCP Internal Medicine; Referring Provider Internal Medicine; Visit Provider Internal Medicine | DX: R94.31 Abnormal electrocardiogram [ECG] [EKG] (principal); I35.8 Other nonrheumatic aortic valve disorders; E11.8 Type 2 diabetes mellitus with unspecified complications; I10 Essential (primary) hypertension; E78.5 Hyperlipidemia, unspecified; Z79.84 Long term (current) use of oral hypoglycemic drugs; Z79.899 Other long term (current) drug therapy | CPT/HCPCS: 99212 ==

== ENCOUNTER 2022-12-30 11:26 | Outpatient (REF) | payer MEDICARE, SELFPAY ==
[2022-12-30 12:38] LABS: Estimated Average Glucose 146 mg/dL; Hemoglobin A1c % 6.7 %
[2022-12-30 12:50] LABS: Blood Urea Nitrogen 20 mg/dL (9-16); Cholesterol 154 mg/dL; Estimated Glomerular Filt Rate > 60; HDL Cholesterol 59 mg/dL; LDL Cholesterol Calculated 82 mg/dl; Triglycerides 68 mg/dL
== END 2022-12-30 11:27 | disposition home or self-care (01) ==
LOC: HO.LNP 11:26
PROVIDERS: Visit Provider Internal Medicine
DX: E11.40 Type 2 diabetes mellitus with diabetic neuropathy, unspecified (principal); E78.00 Pure hypercholesterolemia, unspecified; I10 Essential (primary) hypertension
CPT/HCPCS: 80061; 82565; 83036; 84520

== ENCOUNTER 2023-03-23 10:30 | Outpatient (REF) | payer MEDICARE, SELFPAY ==
[2023-03-23 11:31] LABS: Blood Urea Nitrogen 18 mg/dL (9-16); Estimated Glomerular Filt Rate > 60; Uric Acid 5.7 mg/dL (3.4-7.0)
== END 2023-03-23 10:31 | disposition home or self-care (01) ==
LOC: HO.LNP 10:30
PROVIDERS: Visit Provider Internal Medicine
DX: I10 Essential (primary) hypertension (principal)
CPT/HCPCS: 82565; 84520; 84550

== ENCOUNTER 2023-07-04 09:03 | Outpatient (AMB) | payer MEDICARE, SELFPAY ==
--- NOTE | 2023-07-04 09:13 | A.OFFVIS_ITS ---
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 In the past, he was seen for cardiac evaluation due to multiple risk factors. 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 Overall, he states that he is doing fine. No complaints like angina or shortness of breath or in fact anything cardiac sounding. Multiple cardiovascular risk factors including diabetes, hypertension, dyslipidemia, DAY[place] on CPAP. [facility] Medical History Arthritis Back pain Bone spur of ankle Diabetes Essential hypertension Hyperlipidemia Hypertension Other and unspecified hyperlipidemia Sleep apnea with use of continuous positive airway pressure (CPAP) Trace mitral valve regurgitation Type 2 diabetes mellitus with unspecified complications Surgical History (Updated 07/04/23 @ 09:18 by Kyara Rodríguez) H/O varicose vein ligation History of colonoscopy History of total left knee replacement Hx of laparoscopic gastric banding Family History Father No problems noted. Mother No problems noted. Social History Are you a primary managed care provider to a significant other at home: No Do you presently have visiting nurse or other home services: No Alcohol intake: current Alcohol intake frequency: holidays/special occasions only Patient Tobacco Use Status: Former Tobacco user Quit Date: many yrs ago Tobacco use type: Cigarette Years Smoked: 5 +/- Second Hand Smoke Exposure: No Review of Systems Const Denies weakness ENT Denies dizziness Card Denies chest pain, Denies chest pain with activity, Denies syncope, Denies rapid heart rate, Denies pedal edema, Denies edema, Denies leg edema, Denies lightheadedness, Denies palpitations, Denies dyspnea, Denies dyspnea on exertion and Denies orthopnea Resp Denies cough, Denies dyspnea and Denies dyspnea on exertion GI Denies hematochezia and Denies change in stool character Musc Denies abnormal gait, Denies muscle cramps, Denies muscle weakness, Denies num bness, Denies radiating pain into limb and Denies tingling Neuro Denies abnormal gait, Denies dizziness, Denies syncope, Denies numbness, Denies tingling and Denies weakness Endo Denies palpitations Physical Exam Vital Signs: Last Vital Signs Pulse 71 07/04/23 09:15 BP 140/64 H 07/04/23 09:15 BMI result Body Mass Index 27.3 Const General: comfortable and no acute distress Orientation/consciousness: patient oriented x3 HEENT Other: Unremarkable Head: Yes normal to inspection Neck Neck: Yes normal visual inspection Chest Chest palpation & inspection: normal inspection of the chest Resp Auscultation: clear to auscultation bilaterally Cardio Palpation: normal PMI Heart sounds: S1 normal heart sound present, S2 normal heart sound present, no gallops, no murmurs and no rubs GI Palpation (GI): Soft to palpation Back/Spine/Pelvis Other: unremarkable Skin General skin exam: no rashes or lesions noted Neuro General: patient oriented x3 Extrem General: Yes normal to inspection Psych Mental Status: mental status grossly normal Office Procedures EKG Details: EKG with sinus rhythm at 71/Min; OR prolongation to 240 millisecond; nonspecific interventricular conduction defect with somewhat of a left bundle morphology. [id number], Complete Assessment & Plan Assessment & Plan (1) Abnormal EKG: Code(s): R94.31 - Abnormal electrocardiogram [ECG] [EKG] Plan: EKG with nonspecific interventricular conduction defect as above. Overall, similar to the prior EKG and possibly minimal change if any. In the past, Holter had shown only Mobitz type 1 second-degree heart block but acceptable ventricular rates. No high-grade findings. Myocardial perfusion imaging was unremarkable. In the stress test portion, he was able to exercise for 9.7 Mets with hypertensive blood pressure response. No cardiac symptoms of concern during the test. EKG in 6 months. (2) Aortic valve sclerosis: Code(s): I35.8 - Other nonrheumatic aortic valve disorders Plan: At risk of developing aortic stenosis in the future. Echocardiogram in few years. (3) Type 2 diabetes mellitus with unspecified complications: Code(s): E11.8 - Type 2 diabetes mellitus with unspecified complications Plan: He is on metformin. Most recent hemoglobin A1c is 6.7%. Reasonable. (4) Essential hypertension: Code(s): I10 - Essential (primary) hypertension Plan: On amlodipine, valsartan/hydrochlorothiazide. Blood pressure is still high. We will check labs. If potassium and creatinine acceptable, then start spironolactone. (5) Other and unspecified hyperlipidemia: Code(s): E78.5 - Hyperlipidemia, unspecified Plan: Last LDL 82 mg/dL. On statins. Orders: Orders Basic Metabolic Panel Today I10 - Essential (primary) hypertension Coding Level of Care Code Est Pt Level 4 (35096) Diagnoses Abnormal EKG R94.31 Aortic valve sclerosis I35.8 Type 2 diabetes mellitus with unspecified complications E11.8 Essential hypertension I10 Other and unspecified hyperlipidemia E78.5 CPT Codes EKG - CPT: 29145-[id number], Complete ([id number])
[2023-07-04 09:15] VITALS: BP 140/64; PULSE 71; BMI 27.3
== END 2023-07-04 09:32 | disposition home or self-care (01) ==
PROVIDERS: PCP Internal Medicine; Referring Provider Internal Medicine; Visit Provider Internal Medicine
DX: R94.31 Abnormal electrocardiogram [ECG] [EKG] (principal); I35.8 Other nonrheumatic aortic valve disorders; E11.8 Type 2 diabetes mellitus with unspecified complications; I10 Essential (primary) hypertension; E78.5 Hyperlipidemia, unspecified
CPT/HCPCS: 93010; 99214

== ENCOUNTER 2023-07-04 09:03 | Outpatient (REF) | payer MEDICARE, SELFPAY ==
[2023-07-04 10:52] LABS: Anion Gap 14 (12-20); Blood Urea Nitrogen 25 mg/dL (9-16); Calcium 10.5 mg/dL (8.4-10.2); Carbon Dioxide 28 mmol/L (22-29); Chloride 108 mmol/L (96-108); Estimated Glomerular Filt Rate > 60; Glucose Random 137 mg/dL (60-115); Potassium 4.7 mmol/L (3.3-5.1); Sodium 145 mmol/L (135-145)
== END 2023-07-04 09:04 | disposition home or self-care (01) ==
LOC: HO.LAB 09:03
PROVIDERS: PCP Internal Medicine; Referring Provider Internal Medicine; Visit Provider Internal Medicine
DX: I10 Essential (primary) hypertension (principal); I35.8 Other nonrheumatic aortic valve disorders; E78.5 Hyperlipidemia, unspecified; G47.33 Obstructive sleep apnea (adult) (pediatric); R94.31 Abnormal electrocardiogram [ECG] [EKG]; E11.8 Type 2 diabetes mellitus with unspecified complications; Z79.899 Other long term (current) drug therapy
CPT/HCPCS: 36415; 80048; 93005; 99212

== ENCOUNTER 2023-07-11 11:07 | Outpatient (REF) | payer MEDICARE, SELFPAY ==
[2023-07-11 12:18] LABS: Calcium 9.9 mg/dL (8.4-10.2)
== END 2023-07-11 11:08 | disposition home or self-care (01) ==
LOC: HO.LNP 11:07
PROVIDERS: Visit Provider Internal Medicine
DX: E83.52 Hypercalcemia (principal)
CPT/HCPCS: 82310

== ENCOUNTER 2023-07-18 11:54 | Outpatient (REF) | payer MEDICARE, SELFPAY ==
[2023-07-18 14:07] LABS: Anion Gap 14 (12-20); Blood Urea Nitrogen 19 mg/dL (9-16); Calcium 9.9 mg/dL (8.4-10.2); Carbon Dioxide 26 mmol/L (22-29); Chloride 105 mmol/L (96-108); Estimated Glomerular Filt Rate > 60; Glucose Random 112 mg/dL (60-115); Potassium 4.5 mmol/L (3.3-5.1); Sodium 140 mmol/L (135-145)
== END 2023-07-18 11:55 | disposition home or self-care (01) ==
LOC: HO.HMGCLDS 11:54
PROVIDERS: PCP Internal Medicine; Visit Provider Internal Medicine
DX: I10 Essential (primary) hypertension (principal)
CPT/HCPCS: 36415; 80048

== ENCOUNTER 2023-07-28 11:09 | Outpatient (REF) | payer MEDICARE, SELFPAY ==
[2023-07-28 11:17] LABS: MANUAL DIFF FLAG NO
[2023-07-28 11:51] LABS: Basophils Percent Auto 0.5 % (0-2); Eosinophils Absolute Auto 0.3 X10*3/uL (0.0-0.4); Eosinophils Percent Auto 5.5 % (0-4); Hematocrit 39.9 % (42.0-52.0); Hemoglobin 12.7 g/dl (14.0-18.0); Imm Gran Abs Auto 0.02 X10*3/uL (0.00-0.03); Imm Gran Pct Auto 0.3 % (0.0-0.4); Lymphocytes Absolute Auto 1.7 X10*3/uL (1.2-4.9); Lymphocytes Percent Auto 26.8 % (20-40); Mean Corpuscular HGB Conc 31.8 g/dl (31.0-36.0); Mean Corpuscular Hemoglobin 29.3 pg (27.0-33.0); Mean Corpuscular Volume 92.1 fL (80.0-98.0); Mean Platelet Volume 11.8 fL (9.4-12.4); Monocytes Absolute Auto 0.6 X10*3/uL (0.1-1.2); Monocytes Percent Auto 8.9 % (2-11); Neutrophils Absolute Auto 3.6 x10*3/uL (2.0-8.3); Platelet Count 244 X10*3/uL (160-400); Red Blood Count 4.33 X10*6/uL (4.60-5.80); Red Cell Distribution Width 13.5 % (11.0-16.0); White Blood Count 6.2 X10*3/uL (4.8-10.8)
[2023-07-28 12:00] LABS: Estimated Average Glucose 137 mg/dL; Hemoglobin A1c % 6.4 % (<6.0)
[2023-07-28 12:20] LABS: Creatinine Urine 217.79 mg/dL; Microalbum/Creatinine Ratio Ur 22.4 ug/mg cr (<30)
[2023-07-28 12:47] LABS: PSA,Total (Free>4and<10) 1.46 ng/mL (0.00-4.00)
[2023-07-28 13:13] LABS: Alanine Aminotransferase 11 U/L (0-40); Albumin Level 4.5 g/dL (3.5-5.0); Alkaline Phosphatase 88 U/L (39-117); Anion Gap 13 (12-20); Aspartate Amino Transferase 19 U/L (5-37); Bilirubin Total 0.7 mg/dL (0.0-1.0); Blood Urea Nitrogen 19 mg/dL (9-16); Calcium 9.8 mg/dL (8.4-10.2); Carbon Dioxide 27 mmol/L (22-29); Chloride 105 mmol/L (96-108); Cholesterol 103 mg/dL (<200); Estimated Glomerular Filt Rate > 60; Glucose Fasting 116 mg/dL (60-99); HDL Cholesterol 46 mg/dL (>40); LDL Cholesterol Calculated 46 mg/dL (<100); Potassium 4.7 mmol/L (3.3-5.1); Sodium 140 mmol/L (135-145); Total Protein 7.5 g/dL (6.5-8.0); Triglycerides 56 mg/dL (<150)
== END 2023-07-28 11:10 | disposition home or self-care (01) ==
LOC: HO.LNP 11:09
PROVIDERS: Visit Provider Internal Medicine
DX: Z00.00 Encounter for general adult medical examination without abnormal findings (principal); I10 Essential (primary) hypertension; E11.40 Type 2 diabetes mellitus with diabetic neuropathy, unspecified; E78.00 Pure hypercholesterolemia, unspecified; Z12.5 Encounter for screening for malignant neoplasm of prostate
CPT/HCPCS: 80053; 80061; 82043; 82570; 83036; 84153; 85025

== ENCOUNTER 2023-08-03 11:07 | Outpatient (REF) | payer MEDICARE, SELFPAY ==
[2023-08-03 12:29] LABS: Iron 84 mcg/dL (45-160); Percent Iron Saturation 26 % (15-50); Total Iron Binding Capacity 321 mcg/dL (228-428); Unsaturated Iron Binding 237 ug/dL
[2023-08-03 13:04] LABS: Folate 18.3 ng/mL (> or = 4.0); Vitamin B12 614 pg/mL (200-900)
== END 2023-08-03 11:08 | disposition home or self-care (01) ==
LOC: HO.10HDLNP 11:07
PROVIDERS: Visit Provider Internal Medicine
DX: R71.8 Other abnormality of red blood cells (principal)
CPT/HCPCS: 82607; 82746; 83540

== ENCOUNTER 2023-08-15 07:35 | Emergency (ER) | payer MEDICARE, SELFPAY ==
[2023-08-15 07:42] VITALS: BP 178/120; BP 186/101; PULSE 106; RESP 18; TEMP 36.6; O2SAT 98; O2SAT 99; BMI 29.1
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
--- NOTE | 2023-08-15 09:06 | PC.NURSE ---
ok to remove C-collar per Dr. Loaiza
[2023-08-15 09:09] LABS: Alanine Aminotransferase 15 U/L (0-40); Albumin Level 4.4 g/dL (3.5-5.0); Alkaline Phosphatase 102 U/L (39-117); Anion Gap 18 (12-20); Aspartate Amino Transferase 20 U/L (5-37); Bilirubin Total 0.7 mg/dL (0.0-1.0); Blood Urea Nitrogen 17 mg/dL (9-16); Calcium 9.8 mg/dL (8.4-10.2); Carbon Dioxide 24 mmol/L (22-29); Chloride 104 mmol/L (96-108); Creatinine Clr Calc Pharmacy 81.9; Estimated Glomerular Filt Rate > 60; Glucose Random 189 mg/dL (60-115); Potassium 4.5 mmol/L (3.3-5.1); Sodium 141 mmol/L (135-145); Total Protein 7.8 g/dL (6.5-8.0)
--- NOTE | 2023-08-15 09:16 | PC.NURSE ---
pt takes Fluorouracil cream which pt reports states not to mix with other creams/meds . pt unsure of this. informed MD Loaiza and decided to hold the bacitracin, education providede to pt to monitor area closely for signs of infection.
[2023-08-15 09:28] VITALS: BP 167/91; PULSE 105; RESP 18; O2SAT 98
== END 2023-08-15 11:56 | disposition home or self-care (01) ==
PROVIDERS: Emergency Provider Student in an Organized Health Care Education/Training Program; PCP Internal Medicine
DX: S00.01XA Abrasion of scalp, initial encounter (principal); R51.9 Headache, unspecified; M54.2 Cervicalgia; I10 Essential (primary) hypertension; R94.31 Abnormal electrocardiogram [ECG] [EKG]; V43.52XA Car driver injured in collision with other type car in traffic accident, initial encounter; Y93.9 Activity, unspecified; Y92.410 Unspecified street and highway as the place of occurrence of the external cause; Y99.9 Unspecified external cause status; Z79.899 Other long term (current) drug therapy
CPT/HCPCS: 36415; 70450; 72125; 80053; 81001; 85025; 85610; 93005; 99284

== ENCOUNTER 2023-08-29 10:49 | Outpatient (REF) | payer MEDICARE, SELFPAY ==
--- NOTE | ~2023-08-29 | US_ITS ---
EXAMINATION: US THYROID CLINICAL INFORMATION: Thyroid nodule. COMPARISON: CT cervical spine 08/15/2023. TECHNIQUE: Linear transducer grayscale and color Doppler examination with attention to the region of the thyroid. Technically difficult study secondary to body habitus. FINDINGS: SIZE: Measurements of the thyroid lobes and nodules are given in sagittal, anteroposterior and transverse dimensions respectively. Right Thyroid Lobe: 6.5 x 2.9 x 1.9 cm, volume 18.8 mL. Parenchyma: The gland echotexture is heterogeneous. Thyroid vascularity is increased. Left Thyroid Lobe: 5.9 x 2.7 x 1.9 cm, volume 15.9 mL. Parenchyma: The gland echotexture is heterogeneous. Thyroid vascularity is increased. Isthmus: 1.0 cm in maximum AP dimension. Estimated total number of nodules greater than or equal to 1 cm: 2. Repair Clerk nodules are described as follows: 1. Location: Left lower pole. Size: 4.0 x 2.4 x 1.8 cm, volume 9.08 mL. Nodule characteristics: Composition: Solid (2). Echogenicity: Isoechoic (1). Shape: Taller than wide (3). Margins: Ill-defined (0). Echogenic Foci: Macrocalcifications (1). ACR TI-RADS total points: 7 ACR TI-RADS category: 5 2. Location: Right lower pole. Size: 1.6 x 0.8 x 1.3 cm, volume 0.92 mL. Nodule characteristics: Composition: Solid (2). Echogenicity: Hyperechoic (1). Shape: Not taller than wide (0). Margins: Smooth (0). Echogenic Foci: None (0). ACR TI-RADS total points: 3 ACR TI-RADS category: 3 3. Location: Right medial/lower pole. Size: 0.9 x 0.5 x 0.9 cm, volume 0.22 mL. Nodule characteristics: Composition: Solid (2). Echogenicity: Hyperechoic (1). Shape: Not taller than wide (0). Margins: Smooth (0). Echogenic Foci: None (0). ACR TI-RADS total points: 3 ACR TI-RADS category: 3 NODES: No lymphadenopathy is seen in the tissue surrounding the thyroid gland. US/US thyroid IMPRESSION: Enlarged thyroid gland with heterogeneous echotexture and increased vascularity. Dominant nodule in the left lower pole TR 5 measuring 4.0 cm. Biopsy is recommended. ACR TI-RADS RECOMMENDATION REFERENCE: Ultrasound-guided fine-needle aspiration, followup ultrasound, no further follow up. * TR1 (0 point) and TR2 (2 points): No FNA or follow up. * TR3 (3 points): FNA if more than or equal to 2.5 cm in maximum dimension, followup ultrasound in 1, 3 and 5 years if 1.5 to 2.4 cm in maximum dimension. * TR4 (4-6 points): FNA if more than or equal to 1.5 cm in maximum dimension, followup ultrasound in 1, 2, 3 and 5 years if 1 to 1.4 cm in maximum dimension. * TR5 (more than or equal to 7 points): FNA if more than or equal to 1 cm in maximum dimension, followup ultrasound every year for 5 years if 0.5 to 0.9 cm in maximum dimension. * TR3, TR4 or TR5 nodules that are below the size threshold for followup receive no follow up.
== END 2023-08-29 10:50 | disposition home or self-care (01) ==
LOC: HO.HMGCX 10:49
PROVIDERS: PCP Internal Medicine; Visit Provider Internal Medicine
DX: E04.1 Nontoxic single thyroid nodule (principal)
CPT/HCPCS: 76536

== ENCOUNTER 2023-10-03 09:55 | Outpatient (REF) | payer MEDICARE, SELFPAY ==
--- NOTE | ~2023-10-03 | US_ITS ---
Ultrasound-guided thyroid nodule fine needle aspiration Indication: Left lobe thyroid nodule Procedure: Informed consent was obtained from the patient prior to the procedure. During this process, the procedure and potential alternatives were explained, along with the intended outcome and benefits. The risks of the procedure, as well as the risks of not doing the procedure, were discussed. The patient was given the opportunity to ask questions regarding the procedure and appeared competent to make medical decisions. A signed consent form which documents this discussion was placed in the medical record. A timeout was performed in the room. The patient was placed in a supine position with the neck extended. The left side of the neck and chest was prepped and draped in routine sterile fashion. 1% lidocaine was used as anesthetic. Under real-time ultrasound guidance, a 25-gauge needle was placed into the nodule and aspiration was performed. A total of 4 aspirations were performed. The specimens were placed in CytoLyt and and the Affirma bottle. Postprocedure images showed no hematoma. A Band-Aid was applied to the access site. The patient tolerated the procedure well with no immediate complications. Permanent ultrasound images were archived to the procedure. US/US biopsy thyroid Impression: Left thyroid nodule fine-needle aspiration This procedure was performed by Geovani Mcwilliams PA-C, and directly supervised by Dr. Knapp
[2023-10-03] MEDS: Lidocaine HCl 1 % MPF 5 ML VIAL SUBCUT (11:56)
== END 2023-10-03 09:56 | disposition home or self-care (01) ==
LOC: HO.US 09:55
PROVIDERS: PCP Internal Medicine; Visit Provider Internal Medicine
DX: E04.1 Nontoxic single thyroid nodule (principal)
CPT/HCPCS: 10005; 88173; 88305

== ENCOUNTER → 2023-10-03 09:57 | Outpatient (BNV) | payer MEDICARE, SELFPAY | PROVIDERS: PCP Internal Medicine; Visit Provider Radiology Diagnostic Radiology | DX: E04.1 Nontoxic single thyroid nodule (principal) | CPT/HCPCS: 10005 ==

== ENCOUNTER 2023-12-27 08:54 | Outpatient (AMB) | payer MEDICARE, SELFPAY ==
--- NOTE | 2023-12-27 09:09 | A.OFFVIS_ITS ---
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 In the past, he was seen for cardiac evaluation due to multiple risk factors. 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 Overall, he states that he is doing fine. No complaints like angina or shortness of breath or in fact anything cardiac sounding. Multiple cardiovascular risk factors including diabetes, hypertension, dyslipidemia, [place] on CPAP. [facility] Medical History Trace mitral valve regurgitation Other and unspecified hyperlipidemia Essential hypertension Type 2 diabetes mellitus with unspecified complications Bone spur of ankle Arthritis Back pain Diabetes Sleep apnea with use of continuous positive airway pressure (CPAP) Hyperlipidemia Hypertension Surgical History History of total left knee replacement H/O varicose vein ligation Hx of laparoscopic gastric banding History of colonoscopy Family History Father No problems noted. Mother No problems noted. Social History Are you a primary intensive care medicine specialist to a significant other at home: No Do you presently have visiting nurse or other home services: No Alcohol intake: current Alcohol intake frequency: holidays/special occasions only Patient Tobacco Use Status: Former Tobacco user Quit Date: many yrs ago Tobacco use type: Cigarette Years Smoked: 5 +/- Second Hand Smoke Exposure: No Review of Systems Const Denies weakness ENT Denies dizziness Card Denies chest pain, Denies chest pain with activity, Denies syncope, Denies rapid heart rate, Denies pedal edema, Denies edema, Denies leg edema, Denies lightheadedness, Denies dyspnea, Denies dyspnea on exertion and Denies orthopnea Resp Denies cough, Denies dyspnea and Denies dyspnea on exertion GI Denies hematochezia and Denies change in stool character Musc Denies abnormal gait, Denies muscle cramps, Denies muscle weakness, Denies numbness, Denies radiating pain into limb and Denies tingling Neuro Denies abnormal gait, Denies dizziness, Denies syncope, Denies numbness, Denies tingling and Denies weakness Physical Exam Vital Signs: Last Vital Signs Pulse 76 12/27/23 09:10 BP 138/66 12/27/23 09:10 BMI result Body Mass Index 28.1 Const General: comfortable and no acute distress Orientation/consciousness: patient oriented x3 HEENT Other: Unremarkable Head: Yes normal to inspection Neck Neck: Yes normal visual inspection Chest Chest palpation & inspection: normal inspection of the chest Resp Auscultation: clear to auscultation bilaterally Cardio Palpation: normal PMI Heart sounds: S1 normal heart sound present, S2 normal heart sound present, no gallops, Murmur heart sound present systolic II/ and no rubs GI Palpation (GI): Soft to palpation Back/Spine/Pelvis Other: unremarkable Skin General skin exam: no rashes or lesions noted Neuro General: patient oriented x3 Extrem General: Yes normal to inspection Psych Mental Status: mental status grossly normal Office Procedures EKG Details: EKG with sinus bradycardia at 54/Min; ID prolongation to 160 milliseconds; nonspecific interventricular conduction defect; [place]. [id number], Complete Assessment & Plan Assessment & Plan (1) Abnormal EKG: Code(s): R94.31 - Abnormal electrocardiogram [ECG] [EKG] Plan: EKG with nonspecific interventricular conduction defect as above. In the past, Holter had shown only Mobitz type 1 second-degree heart block but acceptable ventricular rates. No high-grade findings. We can repeat the same considering his occupation. (2) Aortic valve sclerosis: Code(s): I35.8 - Other nonrheumatic aortic valve disorders Plan: At risk of developing aortic stenosis in the future. Echocardiogram ordered. (3) Type 2 diabetes mellitus with unspecified complications: Code(s): E11.8 - Type 2 diabetes mellitus with unspecified complications Plan: He is on metformin. Most recent hemoglobin A1c is 6.4%. Reasonable. (4) Essential hypertension: Code(s): I10 - Essential (primary) hypertension Plan: On meds including amlodipine, spironolactone, valsartan/HCTZ. Improved from before. (5) Other and unspecified hyperlipidemia: Code(s): E78.5 - Hyperlipidemia, unspecified Plan: Last LDL 46 mg/dL. On statins. Plan Based on his risk factors, abnormal EKG as well as occupation, comprehensive cardiac workup is ordered. Orders: Orders NM cardiolite stress test Today R07.2 - Precordial pain, R94.31 - Abnormal electrocardiogram [ECG] [EKG] CA echo transthoracic complete Today I25.10 - Atherosclerotic heart disease of [place] coronary artery without angina pectoris, R94.31 - Abnormal electrocardiogram [ECG] [EKG] ECG 3 day holter monitor Today R00.2 - Palpitations, R94.31 - Abnormal electrocardiogram [ECG] [EKG] CA stress test Today R07.2 - Precordial pain, R94.31 - Abnormal electrocardiogram [ECG] [EKG] Medications: Refilled spironolactone 25 mg PO DAILY 90 tabs 3RF Coding Level of Care Code Est Pt Level 4 (63208) Diagnoses Abnormal EKG R94.31 Aortic valve sclerosis I35.8 Type 2 diabetes mellitus with unspecified complications E11.8 Essential hypertension I10 Other and unspecified hyperlipidemia E78.5 CPT Codes EKG - CPT: 35031-[id number], Complete ([id number])
[2023-12-27 09:10] VITALS: BP 138/66; PULSE 76; BMI 28.1
== END 2023-12-27 09:57 | disposition home or self-care (01) ==
PROVIDERS: PCP Internal Medicine; Visit Provider Internal Medicine
DX: R94.31 Abnormal electrocardiogram [ECG] [EKG] (principal); I35.8 Other nonrheumatic aortic valve disorders; E11.8 Type 2 diabetes mellitus with unspecified complications; I10 Essential (primary) hypertension; E78.5 Hyperlipidemia, unspecified
CPT/HCPCS: 93010; 99214

== ENCOUNTER → 2023-12-27 08:54 | Outpatient (BNVA) | payer MEDICARE, SELFPAY | PROVIDERS: PCP Internal Medicine; Visit Provider Internal Medicine | DX: R94.31 Abnormal electrocardiogram [ECG] [EKG] (principal); I35.8 Other nonrheumatic aortic valve disorders; I10 Essential (primary) hypertension; E78.5 Hyperlipidemia, unspecified; E11.8 Type 2 diabetes mellitus with unspecified complications | CPT/HCPCS: 93005; 99212 ==

== ENCOUNTER → 2024-01-19 09:45 | Outpatient (REF) | payer MEDICARE, SELFPAY ==
--- NOTE | 2024-01-19 09:49 | HM_ITS ---
Conclusion: 1. Patient was monitored for total period of 2 days and 23 hours 2. Baseline was normal sinus rhythm with average heart rate of 66 beats per minute 3. Rare PACs noted 4. No significant pauses noted 5. No patient reported symptoms MTDD
--- NOTE | 2024-01-19 09:49 | CA_ITS ---
Transthoracic Echocardiogram Patient (Last, First, Middle): Nam King J Gender: Male Date of : 1950 Age: 73 Procedure Date: 01/19/2024 Procedure Type: Transthoracic Echocardiogram Location: OP Height: 190.5 cm Weight: 97.98 kg BSA: 2.27 m2 Heart Rate: 68 bpm BP: 175 / 85 mmHg Residential Property Consultant: DIONICIO Batres MD: Oral Escudero MD Truck Shop Supervisor: Temo Nova MD Symptoms: I25.10 - Atherosclerotic heart disease of [place] coronary artery without... Study Quality: Fair ECG Rhythm: Sinus Conclusions: - 1. Normal LV ejection fraction 55-60% with mild LVH with grade 2 diastolic dysfunction 2. Moderately dilated left atrium 3. Edhh-ib-xstahkqw aortic stenosis 4. Mildly dilated ascending aorta 3.7 cm 5. No gross pericardial effusion Findings Left Ventricle Normal left ventricular size and systolic function. There is mildly increased left ventricular wall thickness. The visually estimated ejection fraction is between 55-60%. There is no evidence of regional wall motion abnormalities. Spectral Doppler is indicative of a pseudonormal filling pattern. E/E prime ratio is >15, consistent with elevated filling pressures. Evidence suggests grade II (moderate) diastolic dysfunction. Peak GLS is -17.0%, borderline low. Right Ventricle Mildly increased right ventricular cavity size. There is normal right ventricular systolic function. Atria The left atrium is moderately dilated. There is no evidence of interatrial shunt. The right atrium is mildly dilated. Aortic Valve There is moderate calcification of the aortic valve. There is moderate thickening of the aortic valve. There is mild to moderate aortic valve stenosis. The mean gradient is 13 mmHg. There is no aortic valve regurgitation. Mitral Valve There is mild anterior and posterior mitral leaflet thickening. There is trace mitral valve regurgitation. There is no mitral valve stenosis. Pulmonic Valve The pulmonic valve is likely normal. Tricuspid Valve Likely normal tricuspid valve structure and function. There is trace tricuspid valve regurgitation. Normal right atrial pressure. Great Vessels The pulmonary artery was not well visualized. There is mild dilatation of the ascending aorta measuring 3.70 cm. Venous The inferior vena cava is normal in size and collapses greater than 50% with inspiration. Pericardium/Pleural There is no evidence of pericardial effusion. Measurements 2D Linear Measurements IVSd: 1.33 0.6-0.9/0.6-1.0 cm LVIDd: 4.43 3.9-5.3/4.2-5.9 cm LVIDd Index: 1.95 2.4-3.2/2.2-3.1 cm/m2 LVIDs: 2.68 2.0-3.6 cm LVPWd: 1.31 0.7-1.1 cm LA Diam: 4.20 2.7-3.8/3.0-4.0 cm LAIDs Index: 1.85 1.5-2.3 cm/m2 LV Mass: 277.11 67-162/88-224 g LV Mass Index: 122.08 43-95/49-115 g/m2 LVOT Diam: 1.90 3.0+(-)1.3 cm 2D Systolic Function EF 4C: 58.10 >55% EF 2C: 53.70 >55% EF BiP: 57.10 >55% Mitral Valve MV Pk E: 1.40 MV PK A: 0.97 MV Decel Time: 165.00 E/A: 1.40 E'Lateral: 9.25 E'Medial: 5.55 E/E' Med: 25.20 E/E' Lat: 15.10 PHT: 48.00 MVA PHT: 4.58 Decel [place]: 8.47 Aortic Valve AoV Pk Clive: 2.39 AoV Mn Cl[place]: 1.70 AoV VTI: 0.62 AoV Pk Grad: 23.00 Aov Mn Grad: 13.00 JENNIFER Cont.VTI: 1.13 LVOT LVOT Pk Clive: 0.96 LVOT Mn Clive: 0.69 LVOT VTI: 0.25 LVOT Pk Grad: 4.00 LVOT Mn Grad: 2.00 LVOT Diam: 1.90 LVOT Area: 2.84 Diastolic Function MV Pk E: 1.40 MV Pk A: 0.97 E/A: 1.40 E'Medial: 5.55 E/E' Med: 25.20 E' Laterial: 9.25 E/E' Lat: 15.10 Right Ventricle TAPSE (mm): 29.00 TVS' Clive: 12.60 Tricuspid Valve RA Press: 3.00 Great Vessels Aorta Sinus of Valsalva: 3.50 2.0-3.5 cm Ao Asc: 3.70 2.1-3.4 cm Pulmonary Valve PV Pk Clive: 1.19 Peak PV Grad: 6.00 Updated in Other Vendor System with Status of Final Temo Nova MD electronically signed on 01/20/2024 12:42:51 PM with status of Final
== END ==
LOC: HO.CARD 09:45
PROVIDERS: PCP Internal Medicine; Visit Provider Internal Medicine
DX: I25.10 Atherosclerotic heart disease of native coronary artery without angina pectoris (principal); I10 Essential (primary) hypertension; R94.31 Abnormal electrocardiogram [ECG] [EKG]; R00.2 Palpitations
CPT/HCPCS: 93242; 93306; 93356

== ENCOUNTER → 2024-01-19 09:49 | Outpatient (BNV) | payer MEDICARE, SELFPAY | PROVIDERS: PCP Internal Medicine; Visit Provider Internal Medicine Cardiovascular Disease | DX: I49.1 Atrial premature depolarization (principal) | CPT/HCPCS: 93244; 93306; 93356 ==

== ENCOUNTER 2024-02-01 11:39 | Outpatient (REF) | payer MEDICARE, SELFPAY ==
[2024-02-01 12:22] LABS: Estimated Average Glucose 140 mg/dL; Hemoglobin A1c % 6.5 % (<6.0)
[2024-02-01 12:28] LABS: Alanine Aminotransferase 14 U/L (0-40); Albumin Level 4.4 g/dL (3.5-5.0); Alkaline Phosphatase 87 U/L (39-117); Aspartate Amino Transferase 18 U/L (5-37); Bilirubin Direct 0.3 mg/dL (0.0-0.5); Bilirubin Total 0.6 mg/dL (0.0-1.0); Blood Urea Nitrogen 20 mg/dL (9-16); Cholesterol 138 mg/dL (<200); Estimated Glomerular Filt Rate > 60; Glucose Fasting 123 mg/dL (60-99); HDL Cholesterol 56 mg/dL (>40); LDL Cholesterol Calculated 70 mg/dL (<100); Potassium 4.3 mmol/L (3.3-5.1); Total Protein 7.5 g/dL (6.5-8.0); Triglycerides 62 mg/dL (<150)
[2024-02-01 12:32] LABS: Reflex LDLD? No
== END 2024-02-01 11:40 | disposition home or self-care (01) ==
LOC: HO.LNP 11:39
PROVIDERS: Visit Provider Internal Medicine
DX: I10 Essential (primary) hypertension (principal); E11.40 Type 2 diabetes mellitus with diabetic neuropathy, unspecified; E78.00 Pure hypercholesterolemia, unspecified
CPT/HCPCS: 80061; 80076; 82565; 82947; 83036; 84132; 84520

== ENCOUNTER → 2024-02-02 09:18 | Outpatient (REF) | payer MEDICARE, SELFPAY ==
--- NOTE | ~2024-02-02 | NM_ITS ---
Exercise Myocardial perfusion study Indication: Precordial chest pain to evaluate for myocardial ischemia Technique: The patient was brought in for an exercise perfusion study on 02/02/2024. Patient performed exercise as per Jorgito protocol and was injected 30 mCi of sestamibi was given intravenously one target HR was achieved. Images were obtained using the SPECT gamma camera interlaced with the gating device. Images were obtained in supine position. Resting perfusion study was performed on 02/20/2024. Patient was administered 30 mCi of sestamibi intravenously at rest. Images were then obtained in supine position. Images were obtained with and without CT attenuation. Total DLP 156 mGy-cm Images were processed with the software and compared side to side in short axis, horizontal long axis and vertical long axis views. Findings: The stress perfusion study showed non attenuated images show severely reduced uptake in the basal inferior wall and mildly to moderately reduced uptake in the remainder of the inferior wall as well as adjacent inferolateral wall of the LV myocardium. Attenuation corrected images show mildly reduced uptake in the inferior wall of the LV myocardium with moderately reduced uptake in the apex.. The gated study shows normal LV systolic function with calculated LVEF of 54%. LV cavity is normal in size. The gated study shows normal systolic wall thickening and contraction of all segments. There is no transient ischemic dilation. Resting study shows no change in perfusion pattern compared to stress study.. Gating at rest reveals normal systolic wall motion with ejection fraction at 52%. The findings are consistent with no clear reversible defect suggestive of ischemia. Small area of nontransmural infarct of the basal inferior wall cannot be entirely ruled out.. NM/NM cardiolite stress test Impression: 1. No myocardial ischemia 2. Gated LVEF is 54% 3. Transient ischemic dilatation not present Stress EKG is borderline for ischemia
--- NOTE | 2024-02-02 09:21 | CA_ITS ---
Acquisition Time: 2024-02-02 09:45:24 Total Exercise Time: 00:06:36 Test Indications: BACK PAIN Medications: SEE H Protocol: NAIMA Max HR: 134 BPM 91% of Pred: 146 BPM Max BP: 172/064 mmHG Max Work Load: 7.9 METS Exercuse stress test exerucse 6 min 36 sec of Naima protocol achieving 91% MPHR and 7.9 METs, with out anginal symptoms, with isolated PVCs, with normotenisve response to exercise, with downsloping in lead 1, 2, V4-V6, Nuclear images pending. Test reviewed with Dr. Jasmine. Abnormalitiies on EKG resolved when put into 12 limb lead placement before and after exercise. Referred By: Oral Escudero Overread By: Mary Knapp
== END ==
LOC: HO.CARD 09:18
PROVIDERS: PCP Internal Medicine; Visit Provider Internal Medicine
DX: R07.2 Precordial pain (principal); R94.31 Abnormal electrocardiogram [ECG] [EKG]
CPT/HCPCS: 78452; 93017; A9500

== ENCOUNTER → 2024-02-02 09:21 | Outpatient (BNV) | payer MEDICARE, SELFPAY | PROVIDERS: PCP Internal Medicine; Visit Provider Nurse Practitioner | DX: R07.2 Precordial pain (principal) | CPT/HCPCS: 78452; 93016; 93018 ==

== ENCOUNTER 2024-03-12 10:29 | Outpatient (AMB) | payer MEDICARE, SELFPAY ==
[2024-03-12 10:31] VITALS: BP 130/56; TEMP 40.5; BMI 28.3
--- NOTE | 2024-03-12 10:31 | A.OFFVIS_ITS ---
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 In the past, he was seen for cardiac evaluation due to multiple risk factors. 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 It does not get any angina but does get tired with activity. He is still walks a lot with dogs. Multiple cardiovascular risk factors including diabetes, hypertension, dyslipidemia, [place] on CPAP. [facility] Medical History Trace mitral valve regurgitation Other and unspecified hyperlipidemia Essential hypertension Type 2 diabetes mellitus with unspecified complications Bone spur of ankle Arthritis Back pain Diabetes Sleep apnea with use of continuous positive airway pressure (CPAP) Hyperlipidemia Hypertension Surgical History History of total left knee replacement H/O varicose vein ligation Hx of laparoscopic gastric banding History of colonoscopy Family History Father No problems noted. Mother No problems noted. Social History Are you a primary director day care center to a significant other at home: No Do you presently have visiting nurse or other home services: No Alcohol intake: current Alcohol intake frequency: holidays/special occasions only Patient Tobacco Use Status: Former Tobacco user Quit Date: many yrs ago Tobacco use type: Cigarette Years Smoked: 5 +/- Second Hand Smoke Exposure: No Review of Systems Const Denies chills, Denies fatigue, Denies fever(s), Denies frequent falls, Denies weakness, Denies weight gain and Denies weight loss ENT Denies dizziness Card Denies chest pain, Denies leg edema, Denies lightheadedness, Denies palpitations, Denies dyspnea and Denies dyspnea on exertion Resp Denies cough, Denies dyspnea and Denies dyspnea on exertion GI Denies hematochezia Musc Denies abnormal gait, Denies muscle weakness, Denies numbness, Denies radiating pain into limb and Denies tingling Neuro Denies abnormal gait, Denies dizziness, Denies frequent falls, Denies numbness, Denies tingling and Denies weakness Endo Denies fatigue and Denies palpitations Physical Exam Vital Signs: Last Vital Signs Temp 105 F H 03/12/24 10:31 BP 130/56 L 03/12/24 10:31 BMI result Body Mass Index 28.3 Const General: comfortable and no acute distress Orientation/consciousness: patient oriented x3 HEENT Other: Unremarkable Head: Yes normal to inspection Neck Neck: Yes normal visual inspection Chest Chest palpation & inspection: normal inspection of the chest Resp Auscultation: clear to auscultation bilaterally Cardio Palpation: normal PMI Heart sounds: S1 normal heart sound present, S2 normal heart sound present, no gallops, Murmur heart sound present systolic II/ and no rubs GI Palpation (GI): Soft to palpation Back/Spine/Pelvis Other: unremarkable Skin General skin exam: no rashes or lesions noted Neuro General: patient oriented x3 Extrem General: Yes normal to inspection Psych Mental Status: mental status grossly normal Office Procedures EKG Details: EKG with sinus tachycardia at 105/min; first-degree heart block; nonspecific interventricular conduction defect; downsloping STs in the inferior as well as anterolateral leads. [id number], Complete Assessment & Plan Assessment & Plan (1) Abnormal EKG: Code(s): R94.31 - Abnormal electrocardiogram [ECG] [EKG] Category: Medical (2) Nonrheumatic aortic (valve) stenosis: Code(s): I35.0 - Nonrheumatic aortic (valve) stenosis Category: Medical (3) Type 2 diabetes mellitus with unspecified complications: Code(s): E11.8 - Type 2 diabetes mellitus with unspecified complications Category: Medical (4) Essential hypertension: Code(s): I10 - Essential (primary) hypertension Category: Medical (5) Other and unspecified hyperlipidemia: Code(s): E78.5 - Hyperlipidemia, unspecified Category: Medical Plan Cardiac studies reviewed. EKG today shows sinus tachycardia with downsloping STs in the inferior and anterolateral leads but not seen before. A prior Holter had shown Mobitz type 1 heart block but in the most recent study no major conduction system findings. In the exercise stress test, he was able to reach 7.9 Mets. There is evidence of deep ST depression in the inferior leads and also in the anterolateral leads. It did not appear that he got angina. In the perfusion component, could not exclude prior basal inferior infarct. In the echocardiogram, LVEF 55-60% with moderate diastolic dysfunction. Skfc-fv-flwitlrw aortic stenosis. Moderately dilated left atrium. Overall, numerous cardiovascular risk factors, abnormal resting EKG during sinus tachycardia and also abnormal EKG portion during stress test but no overt angina. 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 He agrees. Will schedule this in the near future. Continue current meds including aspirin, amlodipine, valsartan/hydrochlorothiazide, spironolactone, metformin, atorvastatin. Follow-up after procedure. Orders: Orders Cardiac Cath LT Diagnostic Today I25.10 - Atherosclerotic heart disease of [place] coronary artery without angina pectoris Complete Blood Count no Diff Today I25.10 - Atherosclerotic heart disease of [place] coronary artery without angina pectoris Basic Metabolic Panel Today I25.10 - Atherosclerotic heart disease of [place] coronary artery without angina pectoris Prothrombin Time INR Today I25.10 - Atherosclerotic heart disease of [place] coronary artery without angina pectoris Coding Level of Care Code Est Pt Level 4 (90696) Diagnoses Abnormal EKG R94.31 Nonrheumatic aortic (valve) stenosis I35.0 Type 2 diabetes mellitus with unspecified complications E11.8 Essential hypertension I10 Other and unspecified hyperlipidemia E78.5 CPT Codes EKG - CPT: 75450-[id number], Complete ([id number])
== END 2024-03-12 11:10 | disposition home or self-care (01) ==
PROVIDERS: PCP Internal Medicine; Visit Provider Internal Medicine
DX: R94.31 Abnormal electrocardiogram [ECG] [EKG] (principal); I35.0 Nonrheumatic aortic (valve) stenosis; E11.8 Type 2 diabetes mellitus with unspecified complications; I10 Essential (primary) hypertension; E78.5 Hyperlipidemia, unspecified
CPT/HCPCS: 93010; 99214

== ENCOUNTER → 2024-03-12 10:29 | Outpatient (BNVA) | payer MEDICARE, SELFPAY | PROVIDERS: PCP Internal Medicine; Visit Provider Internal Medicine | DX: R94.31 Abnormal electrocardiogram [ECG] [EKG] (principal); I35.0 Nonrheumatic aortic (valve) stenosis; I10 Essential (primary) hypertension; E11.8 Type 2 diabetes mellitus with unspecified complications; E78.5 Hyperlipidemia, unspecified; Z79.82 Long term (current) use of aspirin; Z79.899 Other long term (current) drug therapy | CPT/HCPCS: 93005; 99212 ==

== ENCOUNTER 2024-03-25 10:03 | Outpatient (REF) | payer MEDICARE, SELFPAY ==
[2024-03-25 10:44] LABS: Hematocrit 41.2 % (42.0-52.0); Hemoglobin 13.4 g/dl (14.0-18.0); Mean Corpuscular HGB Conc 32.5 g/dl (31.0-36.0); Mean Corpuscular Hemoglobin 30.5 pg (27.0-33.0); Mean Corpuscular Volume 93.8 fL (80.0-98.0); Mean Platelet Volume 10.7 fL (9.4-12.4); Platelet Count 223 X10*3/uL (160-400); Red Blood Count 4.39 X10*6/uL (4.60-5.80); Red Cell Distribution Width 13.8 % (11.0-16.0); White Blood Count 6.5 X10*3/uL (4.8-10.8)
[2024-03-25 10:50] LABS: Prothrombin Time 11.6 SEC (11.1-13.3)
[2024-03-25 11:11] LABS: Anion Gap 16 (12-20); Blood Urea Nitrogen 23 mg/dL (9-16); Calcium 9.8 mg/dL (8.4-10.2); Carbon Dioxide 24 mmol/L (22-29); Chloride 105 mmol/L (96-108); Estimated Glomerular Filt Rate > 60; Glucose Random 125 mg/dL (60-115); Potassium 4.5 mmol/L (3.3-5.1); Sodium 140 mmol/L (135-145)
== END 2024-03-25 10:04 | disposition home or self-care (01) ==
LOC: HO.LAB 10:03
PROVIDERS: PCP Internal Medicine; Visit Provider Internal Medicine
DX: I25.10 Atherosclerotic heart disease of native coronary artery without angina pectoris (principal)
CPT/HCPCS: 36415; 80048; 85027; 85610

== ENCOUNTER → 2024-04-16 23:59 | Outpatient (BNV) | payer MEDICARE, SELFPAY | PROVIDERS: PCP Internal Medicine; Visit Provider Internal Medicine Cardiovascular Disease | DX: I25.118 Atherosclerotic heart disease of native coronary artery with other forms of angina pectoris (principal) | CPT/HCPCS: 92928; 93458; 93571; 93572; 99152 ==

== ENCOUNTER 2024-05-07 12:54 | Outpatient (AMB) | payer MEDICARE, SELFPAY ==
[2024-05-07 13:11] VITALS: BP 114/52; PULSE 79; BMI 27.1
--- NOTE | 2024-05-07 13:11 | MHC.OFFVIS ---
Vital Signs 05/07/24 13:11 Height 6 ft 3 in Weight 216 lb 14.958 oz BMI 27.1 BP 114/52 L Blood Pressure Location Lt brachial Position Sitting Pulse 79 Pulse Source Pulse Oximeter Intake Visit Reasons: s/p cath HS Branch Maker Required: No Allergies No Known Allergies [No Known Allergies*] Allergy (Verified 05/07/24 13:13) Medication List - Last Reconciled 05/07/24 by KEE Elizalde amlodipine 10 mg PO DAILY [Aspirin Low Dose 81 mg PO DAILY] atorvastatin 80 mg PO DAILY metformin ER 500 mg PO BID spironolactone 25 mg PO DAILY ticagrelor (Brilinta) 90 mg PO BID valsartan-hydrochlorothiazide 320-12.5 mg 1 tab PO DAILY HPI HPI s/p cath HS: Details: Nam is a 74-year-old male past medical history of hypertension, hyperlipidemia, diabetes, obstructive sleep apnea with CPAP use who was recently evaluated for abnormal EKG. He had a nuclear stress test which was abnormal leading to cardiac catheterization. He had significant RCA stenosis and REGI was placed. He now presents for follow-up. Today he reports that he has been feeling well since his procedure. He believes he has more energy. He denies ever having chest discomfort at rest or with activity. He denies shortness of breath, palpitations, lightheadedness, presyncope, syncope, falls. He has no discomfort at his right radial catheterization site. He reports good activity tolerance. 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 He is currently off for the summer. He is taking all meds as directed. [facility] Medical History Trace mitral valve regurgitation Other and unspecified hyperlipidemia Essential hypertension Type 2 diabetes mellitus with unspecified complications Bone spur of ankle Arthritis Back pain Diabetes Sleep apnea with use of continuous positive airway pressure (CPAP) Hyperlipidemia Hypertension Surgical History History of total left knee replacement H/O varicose vein ligation Hx of laparoscopic gastric banding History of colonoscopy Family History Father No problems noted. Mother No problems noted. Social History Are you a primary home health care worker to a significant other at home: No Do you presently have visiting nurse or other home services: No Alcohol intake: current Alcohol intake frequency: holidays/special occasions only Patient Tobacco Use Status: Former Tobacco user Tobacco use type: Cigarette Years Smoked: 5 +/- Second Hand Smoke Exposure: No Review of Systems Const All systems reviewed & are unremarkable except as noted in HPI and below ENT Denies dizziness Card Denies chest pain, Denies chest pain at rest, Denies chest pain with activity, Denies rapid heart rate, Denies pedal edema, Denies edema, Denies leg edema, Denies lightheadedness, Denies palpitations, Denies dyspnea, Denies dyspnea on exertion and Denies orthopnea Resp Denies cough, Denies dyspnea and Denies dyspnea on exertion GI Denies hematochezia and Denies change in stool character Musc Denies abnormal gait, Denies limited range of motion, Denies muscle cramps, Denies muscle weakness, Denies numbness, Denies radiating pain into limb, Denies stiffness and Denies tingling Neuro Denies abnormal gait, Denies dizziness, Denies numbness and Denies tingling Endo Denies palpitations Physical Exam Vital Signs: Last Vital Signs Pulse 79 05/07/24 13:11 BP 114/52 L 05/07/24 13:11 BMI result Body Mass Index 27.1 Const General: cooperative, healthy appearing, comfortable and no acute distress Orientation/consciousness: patient oriented x3 Neck Neck: Yes normal visual inspection and Yes no JVD Resp Effort & Inspection: normal respiratory effort Auscultation: clear to auscultation bilaterally, no crackles, no rales, no rhonchi and no wheezes Cardio Jugular venous distension: no JVD Rate: regular rate Rhythm: regular rhythm Heart sounds: S1 normal heart sound present, S2 normal heart sound present, no murmurs and no rubs Neuro General: patient oriented x3 Extrem Other: right radial cath site well healed with right radial pulse easily palpable, normal right hand assessment General: Yes normal to inspection and No no pedal edema Psych Appearance: grossly normal Mental Status: mental status grossly normal Speech and movement: Normal speech and movement present Assessment & Plan Assessment & Plan (1) CAD (coronary artery disease): Code(s): I25.10 - Atherosclerotic heart disease of osage coronary artery without angina pectoris Category: Medical Plan: Patient with no prior known history of CAD. Multiple cardiac risk factors including hypertension, hyperlipidemia, diabetes, sleep apnea. He had EKG showing downsloping STs inferior, anterior and lateral leads. An echocardiogram was done on 01/19/2024 showing EF 55-60%, mild LVH, grade 2 diastolic dysfunction, fszd-ul-yahguynp aortic stenosis, no regional wall motion abnormalities noted. He did have an exercise nuclear stress test done on 02/02/2024 with exercise 6.5 minutes, with no anginal symptoms, with EKG changes meeting criteria for ischemia and nuclear imaging that can not exclude prior basal inferior infarct. He was set up for cardiac catheterization on 04/16/2024 showing nonobstructive disease in the LAD, 1st diagonal and left circumflex, with distal RCA 90% stenosis, angioplasty and REGI placed. Today reports that he has been feeling more energy since the procedure was done. He says he never had chest discomfort or shortness of breath. He is interested in cardiac rehab. I will place the order. I will continue him on aspirin indefinitely. Continue Brilinta uninterrupted for at least 1 year. No bleeding issues reported at this time. Continue amlodipine, valsartan/hydrochlorothiazide for blood pressure control, continue high-dose atorvastatin with ideal LDL goal less than 70. Labs done on 02/01/2024 showed LDL 70. Signs and symptoms of angina reviewed with him. Cardiology follow-up in 3 months, sooner if needed. (2) S/P cardiac catheterization: Comment: 04/16/2024, left main normal, lad proximal 50% stenosis, 1st diagonal ostial 40% stenosis, left circumflex mid 60% stenosis, RCA distal 90% stenosis, REGI placed. Code(s): Z98.890 - Other specified postprocedural states Category: Surgical Plan: Right radial catheterization site well healed (3) Abnormal nuclear stress test: Code(s): R94.39 - Abnormal result of other cardiovascular function study Category: Medical Plan: As above (4) Stented coronary artery: Comment: REGI to the RCA 04/16/2024 Code(s): Z95.5 - Presence of coronary angioplasty implant and graft Category: Surgical Plan: As above (5) Essential hypertension: Code(s): I10 - Essential (primary) hypertension Category: Medical Plan: Well controlled at this time, 114/52. No med changes made. (6) Other and unspecified hyperlipidemia: Code(s): E78.5 - Hyperlipidemia, unspecified Category: Medical Plan: LDL goal less than 70. Well controlled with atorvastatin 80 mg daily. (7) Nonrheumatic aortic (valve) stenosis: Code(s): I35.0 - Nonrheumatic aortic (valve) stenosis Category: Medical Plan: Recent echocardiogram showing [id number]-jgezuvnm aortic stenosis, mean gradient 13 mmHg. No reports of shortness of breath, chest discomfort or lightheadedness. Will arrange for repeat echocardiogram 1 year from last. Plan Time spent on chart review, documentation, interview and assessment Orders: Orders Cardiac Rehab Today I25.10 - Atherosclerotic heart disease of osage coronary artery without angina pectoris, Z95.5 - Presence of coronary angioplasty implant and graft, Z98.890 - Other specified postprocedural states CA echo transthoracic complete 01/20/25 I35.0 - Nonrheumatic aortic (valve) stenosis Coding Level of Care Code Est Pt Level 4 (51129) Diagnoses CAD (coronary artery disease) I25.10 S/P cardiac catheterization Z98.890 Abnormal nuclear stress test R94.39 Stented coronary artery Z95.5 Essential hypertension I10 Other and unspecified hyperlipidemia E78.5 Nonrheumatic aortic (valve) stenosis I35.0 Time Spent (min) 30
== END 2024-05-07 13:43 | disposition home or self-care (01) ==
PROVIDERS: PCP Internal Medicine; Visit Provider Nurse Practitioner Family
DX: I25.10 Atherosclerotic heart disease of native coronary artery without angina pectoris (principal); Z98.890 Other specified postprocedural states; R94.39 Abnormal result of other cardiovascular function study; Z95.5 Presence of coronary angioplasty implant and graft; I10 Essential (primary) hypertension; E78.5 Hyperlipidemia, unspecified; I35.0 Nonrheumatic aortic (valve) stenosis
CPT/HCPCS: 99214

== ENCOUNTER → 2024-05-07 12:54 | Outpatient (BNVA) | payer MEDICARE, SELFPAY | PROVIDERS: PCP Internal Medicine; Visit Provider Nurse Practitioner Family | DX: I35.0 Nonrheumatic aortic (valve) stenosis (principal); I25.10 Atherosclerotic heart disease of native coronary artery without angina pectoris; I10 Essential (primary) hypertension; R94.39 Abnormal result of other cardiovascular function study; E78.5 Hyperlipidemia, unspecified; Z98.890 Other specified postprocedural states; Z95.5 Presence of coronary angioplasty implant and graft | CPT/HCPCS: 99212 ==

== ENCOUNTER 2024-07-15 10:52 | Outpatient (REF) | payer MEDICARE, SELFPAY ==
[2024-07-15 10:56] LABS: MANUAL DIFF FLAG NO
[2024-07-15 11:11] LABS: Basophils Percent Auto 0.4 % (0-2); Eosinophils Absolute Auto 0.2 X10*3/uL (0.0-0.4); Eosinophils Percent Auto 4.1 % (0-4); Hematocrit 40.7 % (42.0-52.0); Hemoglobin 13.1 g/dl (14.0-18.0); Imm Gran Abs Auto 0.01 X10*3/uL (0.00-0.03); Imm Gran Pct Auto 0.2 % (0.0-0.4); Lymphocytes Absolute Auto 1.2 X10*3/uL (1.2-4.9); Lymphocytes Percent Auto 22.2 % (20-40); Mean Corpuscular HGB Conc 32.2 g/dl (31.0-36.0); Mean Corpuscular Volume 96.2 fL (80.0-98.0); Mean Platelet Volume 11.1 fL (9.4-12.4); Monocytes Absolute Auto 0.5 X10*3/uL (0.1-1.2); Neutrophils Absolute Auto 3.4 x10*3/uL (2.0-8.3); Neutrophils Percent Auto 64.1 % (45-73); Platelet Count 238 X10*3/uL (160-400); Red Blood Count 4.23 X10*6/uL (4.60-5.80); Red Cell Distribution Width 14.1 % (11.0-16.0); White Blood Count 5.4 X10*3/uL (4.8-10.8)
[2024-07-15 11:25] LABS: Appearance Urine Clear; Color Urine Yellow; Glucose Urine UA Negative (Negative); Leukocyte Esterase Urine Negative (Negative); Nitrite Urine Negative (Negative); Urine Blood Negative (Negative); Urine Ketones Trace mg/dL (Negative); Urine Protein Negative (Neg-Trace)
[2024-07-15 11:29] LABS: Bacteria Urine None Seen (None Seen); Hyaline Casts Urine 0-2 /LPF (0-2); RBC Urine 0-2 /HPF (0-2); Squamous Epithelial Cell Urine 0-2 /HPF (0-2); WBC Urine 0-5 /HPF (0-5)
[2024-07-15 11:40] LABS: Estimated Average Glucose 123 mg/dL; Hemoglobin A1c % 5.9 % (<6.0)
[2024-07-15 12:00] LABS: PSA,Total (Free>4and<10) 1.08 ng/mL (0.00-4.00)
[2024-07-15 12:13] LABS: Alanine Aminotransferase 21 U/L (0-40); Albumin Level 4.9 g/dL (3.5-5.0); Alkaline Phosphatase 76 U/L (39-117); Anion Gap 15 (12-20); Aspartate Amino Transferase 28 U/L (5-37); Blood Urea Nitrogen 22 mg/dL (9-16); Calcium 10.3 mg/dL (8.4-10.2); Carbon Dioxide 24 mmol/L (22-29); Chloride 107 mmol/L (96-108); Cholesterol 131 mg/dL (<200); Estimated Glomerular Filt Rate 58; Glucose Fasting 126 mg/dL (60-99); HDL Cholesterol 49 mg/dL (>40); LDL Cholesterol Calculated 67 mg/dL (<100); Potassium 4.5 mmol/L (3.3-5.1); Sodium 141 mmol/L (135-145); Total Protein 8.2 g/dL (6.5-8.0); Triglycerides 79 mg/dL (<150)
[2024-07-15 12:20] LABS: Creatinine Urine 114.07 mg/dL; Microalbum/Creatinine Ratio Ur 30.6 ug/mg cr (<30)
[2024-07-15 12:31] LABS: Bilirubin Total 0.8 mg/dL (0.0-1.0)
== END 2024-07-15 10:53 | disposition home or self-care (01) ==
LOC: HO.LNP 10:52
PROVIDERS: Visit Provider Internal Medicine
DX: Z00.00 Encounter for general adult medical examination without abnormal findings (principal); I10 Essential (primary) hypertension; E11.40 Type 2 diabetes mellitus with diabetic neuropathy, unspecified; E83.52 Hypercalcemia; Z12.5 Encounter for screening for malignant neoplasm of prostate
CPT/HCPCS: 80053; 80061; 81001; 82043; 82570; 83036; 84153; 85025

== ENCOUNTER 2024-08-08 09:42 | Outpatient (AMB) | payer MEDICARE, SELFPAY ==
[2024-08-08 09:56] VITALS: BP 120/62; PULSE 72; BMI 25.3
--- NOTE | 2024-08-08 09:56 | A.OFFVIS_ITS ---
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 Allergies No Known Allergies [No Known Allergies*] Allergy (Verified 08/08/24 09:58) Medication List - Last Reconciled 08/08/24 by KEE Elizalde amlodipine 10 mg PO DAILY [Aspirin Low Dose 81 mg PO DAILY] atorvastatin 80 mg PO DAILY fluticasone propionate 50 mcg/actuation 1 spray intranasal DAILY metformin ER 500 mg PO BID spironolactone 25 mg PO DAILY ticagrelor (Brilinta) 90 mg PO BID valsartan-hydrochlorothiazide 320-12.5 mg 1 tab PO DAILY HPI HPI 3 mth f/up: Details: Nam is a 74-year-old male past medical history of hypertension, hyperlipidemia, diabetes, obstructive sleep apnea with CPAP use who was recently evaluated for abnormal EKG. He had a nuclear stress test which was abnormal leading to cardiac catheterization. He had significant RCA stenosis and REGI was placed. He now presents for follow-up. Today he reports that he has been feeling well since last visit in May. He denies ever having chest discomfort at rest or with activity. He denies shortness of breath, palpitations, lightheadedness, presyncope, syncope, falls. 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 He tells me he walks several miles a day which he tolerates well. He is taking all meds as directed. FORMERLY [facility] Medical History Trace mitral valve regurgitation Other and unspecified hyperlipidemia Essential hypertension Type 2 diabetes mellitus with unspecified complications Bone spur of ankle Arthritis Back pain Diabetes Sleep apnea with use of continuous positive airway pressure (CPAP) Hyperlipidemia Hypertension Surgical History History of total left knee replacement H/O varicose vein ligation Hx of laparoscopic gastric banding History of colonoscopy Family History Father No problems noted. Mother No problems noted. Social History Are you a primary dialysis patient care technician to a significant other at home: No Do you presently have visiting nurse or other home services: No Alcohol intake: current Alcohol intake frequency: holidays/special occasions only Patient Tobacco Use Status: Former Tobacco user Tobacco use type: Cigarette Years Smoked: 5 +/- Second Hand Smoke Exposure: No Review of Systems Const All systems reviewed & are unremarkable except as noted in HPI and below ENT Reports dizziness (when bending over) Card Denies chest pain, Denies chest pain at rest, Denies chest pain with activity, Denies rapid heart rate, Denies pedal edema, Denies edema, Denies leg edema, Denies lightheadedness, Denies palpitations, Denies dyspnea, Denies dyspnea on exertion and Denies orthopnea Resp Denies cough, Denies dyspnea and Denies dyspnea on exertion GI Denies hematochezia and Denies change in stool character Musc Denies abnormal gait, Denies limited range of motion, Denies muscle cramps, Denies muscle weakness, Denies numbness, Denies radiating pain into limb, Denies stiffness and Denies tingling Neuro Denies abnormal gait, Reports dizziness (when bending over), Denies numbness and Denies tingling Endo Denies palpitations Physical Exam Vital Signs: Last Vital Signs Pulse 72 08/08/24 09:56 BP 120/62 08/08/24 09:56 BMI result Body Mass Index 25.3 Const General: cooperative, healthy appearing, comfortable and no acute distress Orientation/consciousness: patient oriented x3 Neck Neck: Yes normal visual inspection and Yes no JVD Resp Effort & Inspection: normal respiratory effort Auscultation: clear to auscultation bilaterally, no crackles, no rales, no rhonchi and no wheezes Cardio Rate: regular rate Rhythm: regular rhythm Heart sounds: S1 normal heart sound present, S2 normal heart sound present, no murmurs and no rubs Neuro General: patient oriented x3 Extrem General: Yes normal to inspection, No no pedal edema and No calf tenderness Psych Appearance: grossly normal Mental Status: mental status grossly normal Speech and movement: Normal speech and movement present Assessment & Plan Assessment & Plan (1) CAD (coronary artery disease): Code(s): I25.10 - Atherosclerotic heart disease of [place] coronary artery without angina pectoris Category: Medical Plan: Patient with no prior known history of CAD. Multiple cardiac risk factors including hypertension, hyperlipidemia, diabetes, sleep apnea. He had EKG showing downsloping STs inferior, anterior and lateral leads. An echocardiogram was done on 01/19/2024 showing EF 55-60%, mild LVH, grade 2 diastolic dysfunction, [id number] aortic stenosis, no regional wall motion abnormalities noted. He did have an exercise nuclear stress test done on 02/02/2024 with exercise 6.5 minutes, with no anginal symptoms, with EKG changes meeting criteria for ischemia and nuclear imaging that can not exclude prior basal inferior infarct. He was set up for cardiac catheterization on 04/16/2024 showing nonobstructive disease in the LAD, 1st diagonal and left circumflex, with distal RCA 90% stenosis, angioplasty and REGI placed. On last visit he reported feeling more energy since the procedure. Today he states he continues to feel very well with no concerning symptoms. He did attend cardiac rehab and recently stopped since it was difficult to attend visits with his work schedule. Continue aspirin indefinitely. Continue Brilinta uninterrupted for at least 1 year. No bleeding issues reported at this time. Continue amlodipine, valsartan/hydrochlorothiazide for blood pressure control, continue high-dose atorvastatin with ideal LDL goal less than 70. Labs done on 02/01/2024 showed LDL 70. Signs and symptoms of angina reviewed with him. Cardiology follow-up in 6 months, sooner if needed. (2) S/P cardiac catheterization: Comment: 04/16/2024, left main normal, lad proximal 50% stenosis, 1st diagonal ostial 40% stenosis, left circumflex mid 60% stenosis, RCA distal 90% stenosis, REGI placed. Code(s): Z98.890 - Other specified postprocedural states Category: Surgical Plan: as above (3) Abnormal nuclear stress test: Code(s): R94.39 - Abnormal result of other cardiovascular function study Category: Medical Plan: As above (4) Stented coronary artery: Comment: REGI to the RCA 04/16/2024 Code(s): Z95.5 - Presence of coronary angioplasty implant and graft Category: Surgical Plan: As above (5) Essential hypertension: Code(s): I10 - Essential (primary) hypertension Category: Medical Plan: Well controlled at this time, 120/62. No med changes made. (6) Other and unspecified hyperlipidemia: Code(s): E78.5 - Hyperlipidemia, unspecified Category: Medical Plan: LDL goal less than 70. Well controlled with atorvastatin 80 mg daily. (7) Nonrheumatic aortic (valve) stenosis: Code(s): I35.0 - Nonrheumatic aortic (valve) stenosis Category: Medical Plan: Recent echocardiogram showing [id number] aortic stenosis, mean gradient 13 mmHg. No reports of shortness of breath, chest discomfort or lightheadedness. Will arrange for repeat echocardiogram 1 year from last, due 01/2025. Plan to review with him next visit. Plan Time spent on chart review, documentation, interview and assessment Coding Level of Care Code Est Pt Level 4 (50621) Diagnoses CAD (coronary artery disease) I25.10 S/P cardiac catheterization Z98.890 Abnormal nuclear stress test R94.39 Stented coronary artery Z95.5 Essential hypertension I10 Other and unspecified hyperlipidemia E78.5 Nonrheumatic aortic (valve) stenosis I35.0 Time Spent (min) 28
== END 2024-08-08 11:13 | disposition home or self-care (01) ==
PROVIDERS: PCP Internal Medicine; Visit Provider Nurse Practitioner Family
DX: I25.10 Atherosclerotic heart disease of native coronary artery without angina pectoris (principal); Z98.890 Other specified postprocedural states; R94.39 Abnormal result of other cardiovascular function study; Z95.5 Presence of coronary angioplasty implant and graft; I10 Essential (primary) hypertension; E78.5 Hyperlipidemia, unspecified; I35.0 Nonrheumatic aortic (valve) stenosis
CPT/HCPCS: 99214

== ENCOUNTER → 2024-08-08 09:42 | Outpatient (BNVA) | payer MEDICARE, SELFPAY | PROVIDERS: PCP Internal Medicine; Visit Provider Nurse Practitioner Family | DX: I25.10 Atherosclerotic heart disease of native coronary artery without angina pectoris (principal); R94.39 Abnormal result of other cardiovascular function study; I10 Essential (primary) hypertension; I35.0 Nonrheumatic aortic (valve) stenosis; E78.5 Hyperlipidemia, unspecified; Z95.5 Presence of coronary angioplasty implant and graft; Z98.890 Other specified postprocedural states | CPT/HCPCS: 99212 ==

== ENCOUNTER → 2025-01-09 09:38 | Outpatient (REF) | payer MEDICARE, SELFPAY ==
--- NOTE | 2025-01-09 09:42 | CA_ITS ---
Transthoracic Echocardiogram Patient (Last, First, Middle): Nam King J Gender: Male Date of : 1950 Age: 74 Procedure Date: 01/09/2025 Procedure Type: Transthoracic Echocardiogram Location: OP Height: 190. cm Weight: 87.09 kg BSA: 2.15 m2 Heart Rate: 60 bpm BP: 140 / 60 mmHg Shop Technician: DIONICIO Batres MD: Ivy Washington WOOD MILLING MACHINE TENDER-C Mining Manager: Temo Nova MD Symptoms: I35.0 - Nonrheumatic aortic (valve) stenosis Study Quality: Technically Difficult ECG Rhythm: Sinus Conclusions: - 1. Normal LV ejection fraction 55-60% with mild LVH 2. Mild aortic stenosis 3. Mildly dilated aortic root at 4.4 cm Findings Left Ventricle Normal left ventricular size and systolic function. There is mildly increased left ventricular wall thickness. The visually estimated ejection fraction is between 55-60%. Spectral Doppler is indicative of an impaired relaxation filling pattern. Right Ventricle The right ventricle was not well visualized. Atria The left atrium is mildly dilated. Interatrial shunt cannot be excluded. The right atrium was not well visualized. Aortic Valve The aortic valve was not well visualized. There is moderate calcification of the aortic valve. There is mild aortic valve stenosis. The peak aortic gradient is 14 mmHg.The mean gradient is 9 mmHg. The aortic valve area is 2.29 cm2. There is no aortic valve regurgitation. Mitral Valve The mitral valve was not well visualized. There is no mitral valve regurgitation. There is no mitral valve stenosis. Pulmonic Valve The pulmonic valve was not well visualized. Tricuspid Valve The tricuspid valve was not well visualized. Tricuspid regurgitation envelope is inadequate for calculation of right ventricular systolic pressure. Normal right atrial pressure. Great Vessels The pulmonary artery was not well visualized. There is mild dilatation of the sinuses of Valsalva measuring 4.40 cm. Venous The inferior vena cava is normal in size and collapses greater than 50% with inspiration. Pericardium/Pleural There is no evidence of pericardial effusion. Prior Study Comparison No significant change compared to prior study dated: 01/19/2024. Measurements 2D Linear Measurements IVSd: 1.30 0.6-0.9/0.6-1.0 cm LVIDd: 3.67 3.9-5.3/4.2-5.9 cm LVIDd Index: 1.71 2.4-3.2/2.2-3.1 cm/m2 LVIDs: 2.61 2.0-3.6 cm LVPWd: 1.18 0.7-1.1 cm LA Diam: 3.90 2.7-3.8/3.0-4.0 cm LAIDs Index: 1.81 1.5-2.3 cm/m2 LV Mass: 190.50 67-162/88-224 g LV Mass Index: 88.61 43-95/49-115 g/m2 LVOT Diam: 2.30 3.0+(-)1.3 cm 2D Systolic Function EF 4C: 58.00 >55% EF 2C: 62.90 >55% EF BiP: 58.20 >55% Mitral Valve MV Pk E: 1.08 MV PK A: 0.84 MV Decel Time: 293.00 E/A: 1.30 E'Lateral: 10.40 E'Medial: 5.11 E/E' Med: 21.10 E/E' Lat: 10.40 PHT: 86.00 MVA PHT: 2.56 Decel Hyde: 3.70 Aortic Valve AoV Pk Clive: 1.88 AoV Mn Clive: 1.45 AoV VTI: 0.48 AoV Pk Grad: 14.00 Aov Mn Grad: 9.00 JENNIFER Cont.VTI: 2.29 LVOT LVOT Pk Clive: 0.93 LVOT Mn Clive: 0.72 LVOT VTI: 0.27 LVOT Pk Grad: 3.00 LVOT Mn Grad: 2.00 LVOT Diam: 2.30 LVOT Area: 4.15 Diastolic Function MV Pk E: 1.08 MV Pk A: 0.84 E/A: 1.30 E'Medial: 5.11 E/E' Med: 21.10 E' Laterial: 10.40 E/E' Lat: 10.40 Right Ventricle TAPSE (mm): 22.60 TVS' Clive: 12.50 Tricuspid Valve RA Press: 3.00 Great Vessels Aorta Sinus of Valsalva: 4.40 2.0-3.5 cm Ao Asc: 3.30 2.1-3.4 cm Ao Arch: 3.30 Updated in Other Vendor System with Status of Final Temo Nova MD electronically signed on 01/09/2025 6:31:22 PM with status of Final
--- OUTSIDE RECORDS SUMMARY | 2025-01-09 10:59 | XMS_ITS | Clinical Summary ---
Author Organization [facility] Address [address] [place] [address] Care Team Providers Care [employer] Assistant Manager Name Role Phone Unavailable Primary Care Provider Unavailabl e Immunizations Name Administration Dates Next Due Influenza Inactivated/Split Preservative Free IM 09/14/2010,09/25/2007 Pneumococcal Polysaccharide 23-Valent 11/09/2007 Social History Tobacco Use Types Packs/Day Years Used Date Smoking Tobacco: Never Assessed Sex and Gender Information Value Date Recorded Sex Assigned at Not on file Gender Identity Not on file Sexual Orientation Not on file Plan of Treatment Health Maintenance Due Date Last Done Comments Hepatitis C Virus Screening 1950 DTaP/Tdap/Td Vaccines (1 - Tdap) 02/03/1968 Zoster (Shingles) Vaccine (1 of 2) 1999 Pneumococcal Vaccines 50+ (2 of 2 - PCV) 11/09/2008 11/09/2007 RSV Vaccine 60 years and old er and Patients (1 - 1-dose 75+ series) 02/03/2024 COVID-19 Vaccine ( - 2023-2 5 season) 2024 Hepatitis B Vaccines Aged Out No long er eligible based on patient's age to complete this topic
--- OUTSIDE RECORDS SUMMARY | 2025-01-09 10:59 | XMS_ITS ---
Author Organization Kevin Mtz MD Address [address] [place] [phone] Care Team Providers Care Pony Ride Attendant Name Role Phone Kevin Mtz Primary Care [...] Problem Status W/U Status Risk Notes Problem [id number] History of angioplasty (Z98.62) Active confirmed Vital Signs Blood pressure systolic 138 mm Hg 08/05/20 24 Blood pressure diastolic 60 mm Hg 024 Height 74 in 08/05/2024 Weight 207 lbs 08/05/2024 BMI 26.57 kg/m2 08/05/2024 weight is down 23 pounds [facility] 4-4-24 Encounters Encounter Location Date Provider Diagnosis Kevin Mtz MD [address] [place] [address] [address] [place], [place] [phone] 08/05/2024 Kevin Mtz Aortic stenosis, mod erate [...] Up: 6 Months, Reason: Provider Name:Kevin ibarra, 01/27/2025 07:15:00 AM, [address] [place] [address], [address], [phone], Provider Name:Kevin ibarra, 02/03/2025 10:00:00 AM, [address] [place] [address], [place] [address], [place], [phone], Provider Name:Kevin ibarra, 07/31/2025 07:00:00 AM, [address] [place] [address], [place] [address], [place], [place], [phone], Provider Name:Kevin ibarra, 08/07/2025 10:00:00 AM, [address] [place] [address], [place] [address], [place], [place], [phone], Progress Notes * Lissette CLIFFORDilDOB:1950 ( 74 yo M)Acc No.[id number]:08/05/2024 Progress Notes Patient:?Nam Clifford Provider:?Kevin Mtz MD :1950???Age:74 Y???Sex:Male Zack e:08/05/2024 Address:[address] [place] [address] Subjective: * Chief Complaints: * ???ANNUAL EXAM * HPI: ???Depression Screening:?PHQ-9?Little interest or pleasure in doing things?Not at all,?Feeling down, depressed, or hopeless?Not at all,?Trouble falling or staying asleep, or sleeping too much?Not at all,?Feeling tired or having little energy?Not at all,?Poor appetite or overeating?Not at all,?Feeling bad about yourself or that you are a failure, or have let yourself or your family down?Not at all,?Trouble concentrating on things, such as reading the newspaper or watching television?Not at all,?Moving or speaking so slowly that other people could have noticed; or the opposite, being so fidgety or restless that you have been moving around a lot more than usual?Not at all,?Thoughts that you would be better off or of hurting yourself in some way?Not at all,?Total Score?0.?Interpretation and Intervention?Depression Screening Findings?Negative,?Follow-Up for Depression?: review of PHQ-9 found negative result, no follow-up needed.?Communication Needs:?Communication Needs?Does the patient have a hearing impairment?No,?Does the patient have a vision impairment??Yes,?If yes, what is the vision impairment??Glasses,?Does the patient have a cognition impairment??No.?Fall Risk:?History?Have you had any falls with injury in the past year??No,?Have you had two or more falls in the past year??No.?SDOH Questions:?SDOH Questions?In the past year have you been worried about losing housing??No,?In the past year have you or any family members you live with been unable to get any of the following when it was really needed? Check all that apply:?None.?Symptom(s):? patient is a 74 yo male here for annual visit with review of recent labs and follow up of chronic issues. * ROS:?General/Constitutional:?Patient denies?fatigue , headache.?Change in appetite?denies.?Chills?denies.?Fever?denies.?Ophthalmologic:?Blurred vision?denies.?Discharge?denies.?Pain?denies.?ENT:?Patient denies?decreased sense of smell , any loss of taste , sore throat.?Decreased hearing?denies.?Sore throat?denies.?Swollen glands?denies.?Endocrine:?Cold intolerance?denies.?Excessive thirst?denies.?Heat intolerance?denies.?Weight loss?denies.?Respiratory:?Cough?denies.?Shortness of breath at rest?denies.?Shortness of breath with exertion?denies.?Wheezing?denies.?Cardiovascular:?Chest pain at rest?denies.?Chest pain with exertion?denies.?Irregular heartbeat?denies.?Shortness of breath?denies.?Gastrointestinal:?Abdominal pain?denies.?Change in bowel habits?denies.?Diarrhea?denies.?Nausea?denies.?Rectal bleeding?denies.?Vomiting?denies .?Genitourinary:?Blood in urine?denies.?Difficulty urinating?denies.?Frequent urination?denies.?Musculoskeletal:?Patient denies?muscle aches.?Painful joints?denies.?Weakness?denies.?Peripheral Vascular:?Patient denies?red and blue toes.?Skin:?Dry skin?denies.?Itching?denies.?Denies?Mole(s),? changes in moles, new moles or any lesions of concern.?Denies?Photosensitivity.?Rash?denies.?Neurologic:?Dizziness?denies.?Fainting?denies.?Headache?denies.? * Medical History:? * Surgical History:? * Hospitalization/Major Diagno stic Procedure:? * Family History:?Father: dece ased 73 yrs.?Mother: 84 yrs, diagnosed with Cancer.?3 sister(s) . 1 daughter(s) . .? Denies mental health/substance abuse family history, Denies mental health/substance abuse family history Father- CVA Mother- Ovarian cancer, Denies mental health/substance abuse family history, Denies mental health/substance abuse family history, Denies mental health/substance abuse family history. * Social History:?Tobacco Use:?Tobacco Use/Smoking?Patient is a?former smoker,?How long has it been since you last smoked??> 10 years,?Additional Findings: Tobacco Non-User?Former smoker, currently using no form of tobacco.?Drugs/Alcohol:?Alcohol Screen?Did you have a drink containing alcohol in the past year??Yes,?How often did you have a drink containing alcohol in the past year??Monthly or less (1 point),?How many drinks did you have on a typical day when you were drinking in the past year??1 or 2 drinks (0 point),?How often did you have 6 or more drinks on one occasion in the past year??Never (0 point),?Points?1,?Interpretation?Negative.?Miscellaneous:?Caffeine: yes, frequency:, 1-2 cups per day. Children: yes. no Community involvements. Exercise: yes, walking dogs 7 days a wk, about 3 hours a day,. Home smoke detector use: yes. Housing: owning. Living with: spouse. Marital status: . Occupation: works part-time. Pets: none. no Travel outside of the [place]. * Medications:?TakingBrilinta 60 MG Tablet 1 tablet Orally Twice [...] reviewed and reconciled with the patient * Allergies:?N.K.D.A.yes[Aller dakotah Verified] Objective: * Vitals:?Ht: 74, Wt:207, BMI: 26.57, BP:138/60 weight is down 23 pounds since 02-08-24. * ???Past Orders: ???Lab:Microalbumin, Random (Order Date - 07/15/2024) (Collection Date - 07/15/2024) ? Value Reference Range ?Creatinine Urine 114.07 - m g/dL ?Microalbumin Urine 35.0 - mg/L ?Microalbum Creatinine Ratio Ur 30.6 H <30 - ug/mg cr ???Lab:Hemoglobin A1c (Order Date - 07/15/2024) (Collection Date - 07/15/2024) ? Value Reference Range ?Hemoglobin A1c % 5.9 <6. 0 - % ?Estimated Average Glucose 123 - mg/dL ???Lab:Complete Blood Count Auto Diff (Order Date - 07/15/2024) (Collection Date - 07/15/2024) ? Value Reference Range ?White Blood Count 5.4 4. 8-10.8 - X10*3/uL ?Red Blood Count 4.23 L 4.60 -5.80 - X10*6/uL ?Hemoglobin 13.1 L 14.0-18.0 - g/dl ?Hematocrit 40.7 L 42.0-52.0 - % ?Mean Corpuscular Volume 96.2 80.0-98.0 - fL ?Mean Corpuscular Hemoglobin 31.0 27.0-33.0 - pg ?Mean Corpuscular HGB Conc 32.2 31.0-36.0 - g/dl ?Red Cell Distribution Width 14.1 11.0-16.0 - % ?Platelet Count 238 160-4 00 - X10*3/uL ?Mean Platelet Volume 11.1 9.4-12.4 - fL ?Neutrophils Percent Auto 64.1 45-73 - % ?Imm Gran Pct Auto 0.2 0. 0-0.4 - % ?Lymphocytes Percent Auto 22.2 20-40 - % ?Monocytes Percent Auto 9.0 2-11 - % ?Eosinophils Percent Auto 4.1 H 0-4 - % ?Basophils Percent Auto 0.4 0-2 - % ?NRBC Pct Auto 0.0 0.0-0. 2 - /100WBC ?Neutrophils Absolute Auto 3.4 2.0-8.3 - x10*3/uL ?Imm Gran Abs Auto 0.01 0. 00-0.03 - X10*3/uL ?Lymphocytes Absolute Auto 1.2 1.2-4.9 - X10*3/uL ?Monocytes Absolute Auto 0.5 0.1-1.2 - X10*3/uL ?Eosinophils Absolute Auto 0.2 0.0-0.4 - X10*3/uL ?Basophils Absolute Auto 0.0 0.0-0.2 - X10*3/uL ?NRBC Abs Auto 0.000 0.0-0. 012 - X10*3/uL ???Lab:UA ClnCatch+Micro w/r flx Cult (Order Date - 07/15/2024) (Collection Date - 07/15/2024) ? Value Reference Range ?Color Urine Yellow - ?Appearance Urine Clear - ?PH 5.0 5.0-9.0 - ?Glucose Urine UA Negative Neg ative - mg/dL ?Urine Blood Negative Negative - ?Specific [place] - Urine 1.020 1.005-1.025 - ?Urine Protein Negative Neg-Tr rupa - mg/dL ?Urine Ketones Trace Negati ve - mg/dL ?Nitrite Urine Negative Negati ve - ?Leukocyte Esterase Urine Negative Negative - ?RBC Urine 0-2 0-2 - /HPF ?WBC Urine 0-5 0-5 - /HPF ?Squamous Epithelial Cell Urine 0-2 0-2 - /HPF ?Bacteria Urine None Seen None Seen - ?Hyaline Casts Urine 0-2 0-2 - /LPF ???Lab:Comprehensive [place]. P lu[place] Fast (Order Date - 07/15/2024) (Collection Date - 07/15/2024) ? Value Reference Range ?Sodium 141 135-145 - mmo l/L ?Bilirubin Total 0.8 0.0- 1.0 - mg/dL ?Aspartate Amino Transferase 28 5-37 - U/L ?Alanine Aminotransferase 21 0-40 - U/L ?Total Protein 8.2 H 6.5-8. 0 - g/dL ?Albumin Level 4.9 3.5-5. 0 - g/dL ?Alkaline Phosphatase 76 39-117 - U/L ?Potassium 4.5 3.3-5.1 - mmol/L ?Chloride 107 96-108 - mm ol/L ?Carbon Dioxide 24 22-29 - mmol/L ?Anion Gap 15 12-20 - ?Blood Urea Nitrogen 22 H 9-16 - mg/dL ?Creatinine 1.22 0.5-1.4 - mg/dL ?Estimated Glomerular Filt Rate 58 - ?Glucose Fasting 126 H 60-9 9 - mg/dL ?Calcium 10.3 H 8.4-10.2 - m g/dL ???Lab:Lipid Panel (Order Da te - 07/15/2024) (Collection Date - 07/15/2024) ? Value Reference Range ?Triglycerides 79 <150 - mg/dL ?Cholesterol 131 <200 - m g/dL ?LDL Cholesterol Calculated 67 <100 - mg/dL ?HDL Cholesterol 49 >40 - mg/dL ???Lab:PSA,Total (Free>4and< 10) (Order Date - 07/15/2024) (Collection Date - 07/15/2024) ? Value Reference Range ?PSA,Total (Free>4and<10) 1.08 0.00-4.00 - ng/mL * Examination: ???General Examination: ?GENERAL APPEARANCE:?well developed, well nourished, in no acute distress.?HEAD:?normocephalic, atraumatic.?EYES:?pupils equal, round, reactive to light and accommodation, sclera non-icteric.?EARS:?normal.?ORAL CAVITY:?mucosa moist.?THROAT:?clear.?NECK/THYROID:?neck supple, full range of motion, no cervical lymphadenopathy, no bruits.?SKIN:?warm and dry, no suspicious lesions.?HEART:?regular rate and rhythm, S1, S2 normal, 2/6 murmurs.?LUNGS:?clear to auscultation bilaterally.?ABDOMEN:?soft, nontender, nondistended, bowel sounds present, normal, no organomegaly , no masses palpable.?RECTAL EXAM:?normal tone, no external hemorrhoids, no masses palpable, prostate normal, stool guaiac negative.?MALE GENITOURINARY:? testes descended bilaterally, no testicular mass.?EXTREMITIES:?no clubbing, cyanosis, or edema.?NEUROLOGIC:?nonfocal, motor strength normal upper and lower extremities, sensory exam intact.?PODIATRIC:?diminished pinprick, and normal pulses and light touch.?FOOT EXAM:?.? 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 Plan: * Treatment: 2.?Aortic stenosis, moderate ? Continue Brilinta Tablet, 60 MG, 1 tablet, Orally, Twice a day.?? Notes: is going to have echo in one year to follow, will continue current regiment?? 3.?History of angioplasty? Notes: doing well, will continue to monitor?? 4.?Essential hypertension? Continue Spironolactone Tablet, 25 MG, 1 tablet, Orally;?Continue Valsartan-hydroCHLOROthiazide Tablet, 320-12.5 MG, TAKE 1 TABLET BY MOUTH ONCE DAILY;?Continue amLODIPine Besylate Tablet, 10 MG, TAKE 1 TABLET BY MOUTH ONCE DAILY.?? Notes: stbale, will continue current regiment?? 5.?Type 2 diabetes, controll ed, with neuropathy? Continue metFORMIN HCl ER Tablet Extended Release 24 Hour, 500 MG, take 1 tablet by mouth daily with evening meal, Orally, twice a day.?? Notes: doing well on meds. good a1c, will continue current regiment?? 6.?Hypercholesteremia? Continue Atorvastatin Calcium Tablet, 80 MG, TAKE 1 TABLET BY MOUTH ONCE DAILY.?? Notes: stable, at goal, will continue current regiment?? * Procedure Codes:? * Preventive Medicine:? ??Counseling:?Care goal follow-up plan:?Counseling for abnormal BMI provided?Yes,?Above Normal BMI Follow-up?Giving encouragement to exercise.? ??Diabetes Care Plan:?Patient Lifestyle Goals?Needs to maintain diet control.?Treatment Goals?A1C< 7.?Barriers ?No specific barriers, doing well.?Self-Managment Plan?Increase light exercise to 3 times a week for 30 minutes.? * Follow Up:?6 Months * * Sign off status: Completed true * Provider:?Kevin Mtz MD Date:?0 08/05/2024 Generated for Van shanks/Hayes/eTransmitting on:?01/09/2025 10:59 AM EST History and Physical Notes * HPI [...] patient have a vision impairmen t?: Yes ?If yes, what is the vision impairment?: Glasses [...]
--- OUTSIDE RECORDS SUMMARY | 2025-01-09 10:59 | XMS_ITS | Clinical Summary ---
Author Organization [facility] Address [address] [place] [address] Phone Care Team Providers Care Hemmer Lockstitch Name Role Phone Kevin Mtz MD Primary Care Provider Allergies No known active allergies Medications amLODIPine (NORVASC) 5 MG tablet Take 10 mg by mouth 1 (one) time each day 12/25/2019 Active aspirin (ST CARINA) 81 MG EC tablet Take 1 tablet by mouth 1 (one) time each day Active atorvastatin (LIPITOR) 80 MG tablet Take 1 tablet by mouth 1 (one) time each day Active lisinopril-hydro CHLOROthiazide (PRINZIDE,ZESTOR ETIC) 20-12.5 MG per tablet Take 1 tablet by mouth 2 (two) times a day Active metFORMIN XR (GLUCOPHAGE-XR) 500 MG 24 hr tablet Take 1 tablet by mouth 1 (one) time each day Active Active Problems Problem Noted Date Diagnosed Date Hypertension 07/16/2021 Chronic kidney disease stage 2 07/15/2021 Hypertensive renal disease 07/15/2021 Renal function tests outside reference range 07/2021 Family History Medical History Relation Comments Heart disease Father Hypertension Father Relation Status Comments Father Mother Social History Tobacco Use Types Packs/Day Years Used Date Smoking Tobacco: Never Smokeless Tobacco: Never Alcohol Use Standard Drinks/Week Comments No 0 (1 standard drink = 0.6 oz pur e alcohol) Sex and Gender Information Value Date Recorded Sex Assigned at Not on file Legal Sex Male 4:55 PM EST Gender Identity Not on file Sexual Orientation Not on file Last Filed Vital Signs Vital Sign Reading Time Taken Comments Blood Pressure 120/78 07/16/2021 9:41 AM EDT Pulse 71 07/16/2021 9:41 AM EDT Temperature - - Respiratory Rate - - Oxygen Saturation 98% 07/16/2021 9:41 AM EDT Inhaled Oxygen Concentration - - Weight 106 kg (234 lb) 07/16/2021 9:41 AM EDT Height 190.5 cm (6' 3 ) 02/26/2020 12:00 PM EDT Body Mass Index 29.25 02/26/2020 12:00 PM EDT Plan of Treatment Health Maintenance Due Date Last Done Comments Pneumococcal Vaccine: 65+ Ye ars (1 of 2 - PCV) 1955 Colorectal Cancer Screening: Annual FOBT 1998 Colorectal Cancer Screening: Colonoscopy 1998 Colorectal Cancer Screening: Sigmoidoscopy 1998 Influenza Vaccine (#1) 2024 Hepatitis B Vaccine Aged Out No longe r eligible based on patient's age to complete this topic Insurance [facility] Care Teams Hemmer Lockstitch Relationship Specialty Start Date End Date Kevin Mtz MD [id number] [place], [place] PCP - General 11/16/20
--- OUTSIDE RECORDS SUMMARY | 2025-01-09 11:00 | XMS_ITS ---
Author Organization Kevin Mtz MD Address [address] [place] [phone] Care Team Providers Care County Director Welfare Name Role Phone Kevin Mtz Primary Care Provider [phone] Allergies No Known Allergies REASON FOR VISIT 6 MO F/U, No Covid symptoms Medications Medication SIG (Take, Route, Frequency, Duration) Notes Start Date End Date Status metFORMIN HCl ER 500 MG take 1 tablet by mouth daily with evening meal Orally twice a day for 90 days Active amLODIPine Besylate 10 MG TAKE 1 TABLET BY MOUTH ONCE DAILY Active Spironolactone 25 MG 1 tablet Orally Active Atorvastatin Calcium 80 MG TAKE 1 TABLET BY MOUTH ONCE DAILY Active Valsartan-hydroCHLOROthiaz jennifer 320-12.5 MG TAKE 1 TABLET BY MOUTH ONCE DAILY Active Aspir-81 81 MG 1 tablet Orally Once a day Active Fluticasone Propionate 50 MCG/ACT 1 spray in each nostril Nasally Once a day for 30 day(s) 08/22/2023 Active Tylenol 8 Hour 650 MG 2 tablets as neede d Orally every 8 hrs Not-Taking Ventolin HFA 108 (90 Base) MCG/ACT 1 puff as needed Inhalation every 4 hrs for 90 days 01/20/2020 Not-Taking Vital Signs Blood pressure systolic 148 mm Hg 02/08/20 24 Blood pressure diastolic 60 mm Hg 024 Height 74 in 02/08/2024 Weight 230 lbs 02/08/2024 BMI 29.53 kg/m2 02/08/2024 weight is up 13 pounds with heavy boots/ weight has been stable but had boots and keys Encounters Encounter Location Date Provider Diagnosis Kevin Mtz MD [address] [place], [place] [phone] 02/08/2024 Kevin Mtz Essential hypertensi on I10 ; Type 2 diabetes, controlled, 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 and Hypercholesteremia E78.00 Assessments Encounter Date Diagnosis (ICD Code) Assessment Notes Treatment Notes Treatment Clinical Notes Section Notes 02/08/2024 Essential hypertensi on (ICD-10 - I10) stable, will continue current regiment, need results of the stress test and echo/ RESULTS FAXED INTO CHART 02/08/2024 Type 2 diabetes, controlled, with neuropathy (ICD-10 - E11.40) stable, will continue current regiment 02/08/2024 Hypercholesteremia (ICD-10 - E78.00) stable, will continue current regiment Plan Of Treatment Medication Medication Name Sig Start Date Stop Date Notes metFORMIN HCl ER 500 MG take 1 tablet by mouth daily with evening meal Orally twice a day for 90 days amLODIPine Besylate 10 MG TAKE 1 TABLET BY MOUTH ONCE DAILY Spironolactone 25 MG 1 tablet Orally Atorvastatin Calcium 80 MG TAKE 1 TABLET BY MOUTH ONCE DAILY Valsartan-hydroCHLOROthiazid e 320-12.5 MG TAKE 1 TABLET BY MOUTH ONCE DAILY Treatment Notes Assessment Notes Essential hypertension stable, will cont inue current regiment, need results of the stress test and echo/ RESULTS FAXED INTO CHART Type 2 diabetes, controlled, with neurop athy stable, will continue current regiment Hypercholesteremia stable, will continu e current regiment Next Appt Details Provider Name:Kevin ibarra, 01/27/2025 07:15:00 AM, [address], [address], [place], [place], [phone], Provider Name:Kevin Hernandez ier, 02/03/2025 10:00:00 AM, [address], [address], [place], [phone], Provider Name:Kevin Hernandez ier, 07/31/2025 07:00:00 AM, [address], [address], [place], [phone], Provider Name:Kevin Hernandez ier, 08/07/2025 10:00:00 AM, [address], [address], [place], [phone], Progress Notes * DARRIN LissetteChinoOB:1950 ( 74 yo M)Acc No.[id number]:02/08/2024 Progress Notes Patient:?Darrin, Nam Provider:?Kevin Mtz MD :1950???Age:74 Y???Sex:Male Zack e:02/08/2024 Address:[address] [place], [place] [phone] Subjective: * Chief Complaints: * ???6 MO F/Chiki Covid symptoms * HPI: ???Symptom(s):? patient is a 74 yo male here for 6 month follow up visit. * ROS:?General/Constitutional:?Denies?Chills.?Denies?Fatigue.?Denies?Fever.?Denies?Headache.?ENT:?Patient denies?decreased sense of smell, any loss of taste, sore throat.?Denies?Sore throat.?Respiratory:?Denies?Cough.?Denies?Shortness of breath at rest.?Denies?Shortness of breath with exertion.?Gastrointestinal:?Denies?Diarrhea.?Denies?Nausea.?Musculoskeletal:?Patient denies?muscle aches.?Peripheral Vascular:?Patient denies?red and blue toes.? * Medical History:? * Surgical History:? * Hospitalization/Major Diagno stic Procedure:? * Medications:?TakingSpironola ctone 25 MG Tablet 1 tablet Orally Aspir-81 81 MG Tablet Delayed Release 1 tablet Orally Once a dayamLODIPine Besylate 10 MG Tablet TAKE 1 TABLET BY MOUTH ONCE DAILY Atorvastatin Calcium 80 MG Tablet TAKE 1 TABLET BY MOUTH ONCE DAILY Fluticasone Propionate 50 MCG/ACT Suspension 1 spray in each nostril Nasally Once a daymetFORMIN HCl ER 500 MG Tablet Extended Release 24 Hour TAKE 1 TABLET BY MOUTH DAILY WITH EVENING MEAL Orally twice a dayValsartan-hydroCHLOROthiazide 320-12.5 MG Tablet TAKE 1 TABLET BY MOUTH ONCE DAILY Taking Spironolactone 25 MG Tablet 1 tablet Orally Taking Aspir-81 81 MG Tablet Delayed Release 1 tablet Orally Once a dayTaking amLODIPine Besylate 10 MG Tablet TAKE 1 TABLET BY MOUTH ONCE DAILY Taking Atorvastatin Calcium 80 MG Tablet TAKE 1 TABLET BY MOUTH ONCE DAILY Taking Fluticasone Propionate 50 MCG/ACT Suspension 1 spray in each nostril Nasally Once a dayTaking metFORMIN HCl ER 500 MG Tablet Extended Release 24 Hour TAKE 1 TABLET BY MOUTH DAILY WITH EVENING MEAL Orally twice a dayTaking Valsartan-hydroCHLOROthiazide 320-12.5 MG Tablet TAKE 1 TABLET BY MOUTH ONCE DAILY Not-Taking/PRNTylenol 8 Hour 650 MG Tablet Extended [...] and reconciled with the patient * Allergies:?N.K.D.A.yes[Aller gies Verified] Objective: * Vitals:?Ht: 74, Wt:230, BMI: 29.53, BP:148/60, Repeat BP:132/60 weight is up 13 pounds with heavy boots/ weight has been stable but had boots and keys. * ???Past Orders: ???Lab:Lipid Panel with Refl ex (Order 02/01/2024) (Collection Date 02/01/2024) ? Value Reference Range ?Triglycerides 62 <150 - mg/dL ?Cholesterol 138 <200 - m g/dL ?LDL Cholesterol Calculated 70 <100 - mg/dL ?HDL Cholesterol 56 >40 - mg/dL ???Lab:Liver Panel (Order Da 02/01/2024) (Collection Date - 02/01/2024) ? Value Reference Range ?Bilirubin Total 0.6 0.0- 1.0 - mg/dL ?Bilirubin Direct 0.3 0.0 -0.5 - mg/dL ?Aspartate Amino Transferase 18 5-37 - U/L ?Alanine Aminotransferase 14 0-40 - U/L ?Total Protein 7.5 6.5-8. 0 - g/dL ?Albumin Level 4.4 3.5-5. 0 - g/dL ?Alkaline Phosphatase 87 39-117 - U/L ???Lab:Hemoglobin A1c (Order 02/01/2024) (Collection Date - 02/01/2024) ? Value Reference Range ?Hemoglobin A1c % 6.5 H <6. 0 - % ?Estimated Average Glucose 140 - mg/dL ???Lab:Potassium (Order 02/01/2024) (Collection Date - 02/01/2024) ? Value Reference Range ?Potassium 4.3 3.3-5.1 - mmol/L ???Lab:Blood Urea Nitrogen ( Order 02/01/2024) (Collection Date - 02/01/2024) ? Value Reference Range ?Blood Urea Nitrogen 20 H 9-16 - mg/dL ???Lab:Creatinine (Order Zack e - 02/01/2024) (Collection Date - 02/01/2024) ? Value Reference Range ?Creatinine 1.17 0.5-1.4 - mg/dL ?Estimated Glomerular Filt Rate > 60 - * Examination: ???General Examination: ?GENERAL APPEARANCE:? alert, well hydrated, in no distress .?HEAD:? normocephalic.?SKIN:? good turgor.?HEART:? no murmurs, rubs, gallops, regular rate and rhythm.?LUNGS:? no wheezes, rales, rhonchi, good air movement, clear to auscultation bilaterally.? 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 Plan: * Treatment: 2.?Type 2 diabetes, controll ed, with neuropathy? Refill metFORMIN HCl ER Tablet Extended Release 24 Hour, 500 MG, take 1 tablet by mouth daily with evening meal, Orally, twice a day, 90 days, 180, Refills 4.?? Notes: stable, will continue current regiment.?? 3.?Hypercholesteremia? Continue Atorvastatin Calcium Tablet, 80 MG, TAKE 1 TABLET BY MOUTH ONCE DAILY.?? Notes: stable, will continue current regiment.?? * Procedure Codes:? * * Sign off status: Completed true * Provider:?Kevin Mtz MD Date:?0 02/08/2024 Generated for Van shanks/Hayes/Nenaitting on:?01/09/2025 11:00 AM EST History and Physical Notes * HPI (History of Present Illness) Category Sub-Category Detail Notes Category Not es Symptom(s) patient is a 74 yo male here for 6 month follow up visit. Examination Category Sub-Category Detail Notes Category Not es General Examination GENERAL APPEARANCE: alert, w ell hydrated, in no distress HEAD: normocephalic HEART: no murmurs, rubs, ga llops, regular rate and rhythm LUNGS: no wheezes, rales, r honchi, good air movement, clear to auscultation bilaterally SKIN: good turgor
--- OUTSIDE RECORDS SUMMARY | 2025-01-09 11:00 | XMS_ITS ---
Author Organization Kevin Mtz MD Address [address] [place], [place] [phone] Care Team Providers Care Solid Waste Collector Name Role Phone Bibi Kevin Primary Care Provider Results Component Value Reference Range Notes Complete Blood Count Auto Di ff Reviewed date:07/16/2024 08:30:25 AM Interpretation: Performing Lab:[facility], [address] [place] [phone] Notes/Report: White Blood Count 5.4 4.8-10.8 X10*3/uL [...] NRBC Abs Auto 0.000 0.0-0.012 X10*3/uL Comprehensive [place]. Panel Fa st Reviewed date:07/16/2024 08:25:25 AM Interpretation: Performing Lab:[facility], [address] [place] [phone] Notes/Report: Sodium 141 135-145 mmol/L Potassium 4.5 3.3-5.1 mmol/L Slight Hemoly sis Chloride 107 96-108 mmol/L Carbon Dioxide 24 22-29 mmol/L Anion Gap 15 12-20 Blood Urea Nitrogen 22 9-16 mg/dL Creatinine 1.22 0.5-1.4 mg/dL Estimated Glomerular Filt Rate 58 NOTE: For -Salvad[place] individuals, multiply the result by 1.210. Chronic [...] Panel Reviewed date:07/15/2024 04:00:45 PM Interpretation: Performing Lab:[facility], [address] [place] [phone] Notes/Report: Triglycerides 79 <150 mg/dL Desirable Triglyceride: [...] (Free>4and<10) Reviewed date:07/15/2024 04:01:07 PM Interpretation: Performing Lab:[facility], [address] [place] [phone] Notes/Report: PSA,Total (Free>4and<10) 1.08 0.00-4.00 ng/mL A [...] Random Reviewed date:07/15/2024 04:00:56 PM Interpretation: Performing Lab:[facility], [address] [place] [phone] Notes/Report: Creatinine Urine 114.07 Microalbumin Urine 35.0 Microalbum/Creatinine Ratio Ur 30.6 <30 ug/mg cr Albumin/Creatinine Ratio Reference Ranges: Normal: < 30 ug/mg creatinine Microalbuminuria: 30 - 300 ug/mg creatinine Clinical Albuminuria: > 300 ug/mg creatinine Hemoglobin A1c Reviewed date:07/15/2024 04:04:15 PM Interpretation: Performing Lab:[facility], [address] [place] [phone] Notes/Report: Hemoglobin A1c % 5.9 <6.0 % [...] average glucose, using the formula of the N9X-Befrqck Average Glucose study (ADAG), Diabetes Care, Vol.31,#8, Jun. 2007 UA ClnCatch+Micro w/rflx Cul t Reviewed date:07/16/2024 08:48:29 AM Interpretation: Performing Lab:[facility], [address] [place] [phone] Notes/Report: Urine, Clean Catch Color Urine Yellow Appearance Urine Clear PH 5.0 5.0-9.0 Glucose Urine UA Negative Negative mg/dL Urine Blood Negative Negative Specific [place] - Urine 1.020 1.005-1.025 Urine Protein Negative [...] Location Date Provider Diagnosis Kevin Mtz MD [address] [place] [address] [place] [phone] 07/15/2024 Kevin Mtz Annual physical exam Z00.00 [...] Treatment Next Appt Details Provider Name:Kevin ibarra, 01/27/2025 07:15:00 AM, [address] [place] [address], [address], [phone], Provider Name:Kevin ibarra, 02/03/2025 10:00:00 AM, [address] [place] [address], [address], [phone], Provider Name:Kevin ibarra, 07/31/2025 07:00:00 AM, [address] [place] [address], [address], [phone], Provider Name:Kevin ibarra, 08/07/2025 10:00:00 AM, [address] [place] [address], [address], [phone], Progress Notes * Rosalba CLIFFORDOB:1950 ( 74 yo M)Acc No.[id number]:07/15/2024 Progress Note Patient:?Lissette CLIFFORDil Provider:?Kevin Mtz MD :1950???Age:74 Y???Sex:Male Zack e:07/15/2024 Address:[address] [place], [place] [phone] Subjective: * Chief Complaints: * ???1. FASTING LABS. * Medical History:? Objective: * Vitals:? 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 Plan: * Treatment: 2.?Essential hypertension?LAB: Complete Blood Count Auto Diff (Collection Date & Time - 07/15/2024 10:00 AM) ?LAB: Comprehensive [place]. Panel Fast (Collection Date & Time - 07/15/2024 10:00 AM) ?LAB: Lipid Panel (Collection Date & Time - 07/15/2024 10:00 AM) ?LAB: PSA,Total (Free>4and<10) (Collection Date & Time - 07/15/2024 10:00 AM) ?LAB: Microalbumin, Random (Collection Date & Time - 07/15/2024 10:00 AM) ?LAB: Hemoglobin A1c (Collection Date & Time - 07/15/2024 10:00 AM) ?LAB: UA ClnCatch+Micro w/rflx Cult (Collection Date & Time - 07/15/2024 10:00 AM) 3.?Type 2 diabetes, controll ed, with neuropathy?LAB: Complete Blood Count Auto Diff (Collection Date & Time - 07/15/2024 10:00 AM) ?LAB: [facility] [place]. Panel Fast (Collection Date & Time - 07/15/2024 10:00 AM) ?LAB: Lipid Panel (Collection Date & Time - 07/15/2024 10:00 AM) ?LAB: PSA,Total (Free>4and<10) (Collection Date & Time - 07/15/2024 10:00 AM) ?LAB: Microalbumin, Random (Collection Date & Time - 07/15/2024 10:00 AM) ?LAB: Hemoglobin A1c (Collection Date & Time - 07/15/2024 10:00 AM) ?LAB: UA ClnCatch+Micro w/rflx Cult (Collection Date & Time - 07/15/2024 10:00 AM) 4.?Hypercalcemia?LAB: Complete Blood Count Auto Diff (Collection Date & Time - 07/15/2024 10:00 AM) ?LAB: [facility] [place]. Panel Fast (Collection Date & Time - 07/15/2024 10:00 AM) ?LAB: Lipid Panel (Collection Date & Time - 07/15/2024 10:00 AM) ?LAB: PSA,Total (Free>4and<10) (Collection Date & Time - 07/15/2024 10:00 AM) ?LAB: Microalbumin, Random (Collection Date & Time - 07/15/2024 10:00 AM) ?LAB: Hemoglobin A1c (Collection Date & Time - 07/15/2024 10:00 AM) ?LAB: UA ClnCatch+Micro w/rflx Cult (Collection Date & Time - 07/15/2024 10:00 AM) * Immunizations:? Influenza High Dose : 0.5 mL (Dose No:1) (Route: Intramuscular) given by Di King , Office Staff on Left Deltoid * Procedure Codes:?19055 FLU V ACC PRSV FREE INC ANTIG, G0008 ADMN FLU VAC NO FEE SCHED SAME DAY, 45340 VENIPUNCT, ROUTINE* * * The named appointment provid er may or may not be the originator of this progress note, and it is not deemed complete until electronically signed by the appointment provider. Sign off status: Pending * Provider:?Kevin Mtz MD Date:?0 07/15/2024 Generated for Van shanks/Hayes/Nenaitting on:?01/09/2025 10:59 AM EST
== END ==
LOC: HO.CARD 09:38
PROVIDERS: PCP Internal Medicine; Visit Provider Nurse Practitioner Family
DX: I35.0 Nonrheumatic aortic (valve) stenosis (principal)
CPT/HCPCS: 93306

== ENCOUNTER → 2025-01-09 09:42 | Outpatient (BNV) | payer MEDICARE, SELFPAY | PROVIDERS: PCP Internal Medicine; Visit Provider Internal Medicine Cardiovascular Disease | DX: I35.0 Nonrheumatic aortic (valve) stenosis (principal); I35.8 Other nonrheumatic aortic valve disorders | CPT/HCPCS: 93306 ==

== ENCOUNTER 2025-01-27 10:12 | Outpatient (REF) | payer MEDICARE, SELFPAY ==
[2025-01-27 10:40] LABS: Estimated Average Glucose 123 mg/dL; Hemoglobin A1c % 5.9 % (<6.0)
[2025-01-27 11:28] LABS: Alanine Aminotransferase 25 U/L (0-40); Albumin Level 4.3 g/dL (3.5-5.0); Aspartate Amino Transferase 29 U/L (5-37); Bilirubin Direct 0.2 mg/dL (0.0-0.5); Bilirubin Total 0.4 mg/dL (0.0-1.0); Cholesterol 127 mg/dL (<200); Glucose Fasting 111 mg/dL (60-99); HDL Cholesterol 58 mg/dL (>40); LDL Cholesterol Calculated 61 mg/dL (<100); Total Protein 7.3 g/dL (6.5-8.0); Triglycerides 40 mg/dL (<150)
[2025-01-27 12:22] LABS: Alkaline Phosphatase 93 U/L (39-117)
[2025-01-27 12:41] LABS: Reflex LDLD? No
== END 2025-01-27 10:13 | disposition home or self-care (01) ==
LOC: HO.LNP 10:12
PROVIDERS: Visit Provider Internal Medicine
DX: E11.40 Type 2 diabetes mellitus with diabetic neuropathy, unspecified (principal); E78.00 Pure hypercholesterolemia, unspecified
CPT/HCPCS: 80061; 80076; 82947; 83036

== ENCOUNTER 2025-02-03 12:20 | Outpatient (REF) | payer MEDICARE, SELFPAY ==
[2025-02-03 12:29] LABS: Appearance Urine Clear; Color Urine Yellow; Glucose Urine UA Negative (Negative); Leukocyte Esterase Urine Negative (Negative); Nitrite Urine Negative (Negative); Specific Gravity - Urine 1.025 (1.005-1.025); Urine Blood Negative (Negative); Urine Ketones Trace mg/dL (Negative); Urine Protein Negative (Neg-Trace)
[2025-02-03 12:35] LABS: Bacteria Urine None Seen (None Seen); Hyaline Casts Urine 0-2 /LPF (0-2); RBC Urine 0-2 /HPF (0-2); Squamous Epithelial Cell Urine 0-2 /HPF (0-2); WBC Urine 0-5 /HPF (0-5)
[2025-02-03 13:42] LABS: Creatinine Urine 112.03 mg/dL; Microalbum/Creatinine Ratio Ur 24.9 ug/mg cr (<30)
--- OUTSIDE RECORDS SUMMARY | 2025-02-03 14:00 | XMS_ITS ---
Author Organization Kevin Mtz MD Address [address] [place], [place] [phone] Care Team Providers Care Refrigeration Systems Installer Name Role Phone BibiCynthian Primary Care Provider [phone] Allergies No Known Allergies Results Component Value Reference Range Notes Microalbumin, Random Reviewed date:02/03/2025 01:49:57 PM Interpretation: Performing Lab:[facility], [address] [place] [phone] Notes/Report: Creatinine Urine 112.03 Microalbumin Urine 28.0 Microalbum/Creatinine Ratio Ur 24.9 <30 ug/mg cr Albumin/Creatinine Ratio Reference Ranges: Normal: < 30 ug/mg creatinine Microalbuminuria: 30 - 300 ug/mg creatinine Clinical Albuminuria: > 300 ug/mg creatinine UA ClnCatch+Micro w/rflx Cul t Reviewed date:02/03/2025 01:54:17 PM Interpretation: Performing Lab:[facility], [address] [place] [phone] Notes/Report: Urine, Clean Catch Color Urine Yellow Appearance Urine Clear PH 5.0 5.0-9.0 Glucose Urine UA Negative Negative mg/dL Urine Blood Negative Negative Specific [place] - Urine 1.025 1.005-1.025 Urine Protein Negative [...] kg/m2 02/03/2025 weight is down 8 pounds [facility] e 08-05-24 Encounters Encounter Location Date Provider Diagnosis Kevin Mtz MD [address] [place] [address] Drive [address] [place], [place] [phone] 02/03/2025 Kevin Mtz Type 2 diabetes, controlled, [...] regiment Next Appt Details Provider Name:Kevin ibarra, 07/31/2025 07:00:00 AM, [address] [place] [address], [place] [address], [place], [place], [phone], Provider Name:Kevin ibarra, 08/07/2025 10:00:00 AM, [address] [place] [address], [address], [place], [place], [phone], Progress Notes * Rosalba CLIFFORDOB:1950 ( 75 yo M)Acc No.[id number]:02/03/2025 Progress Notes Patient:?Nam CLIFFORD Provider:?Kevin Mtz MD :1950???Age:75 Y???Sex:Male Zack e:02/03/2025 Address:[address] [place], [place] [phone] Subjective: * Chief Complaints: * ???1. 6 month. 2. Woke up to day with a sore neck. * HPI: ???Symptom(s):?patient is a 75 yo male here for 6 month follow up visit/ hne put him on ketogenic diet. they told him not to worry about cholesterol. ???Depression Screening:?PHQ-9?Thoughts that you would be better off or of hurting yourself in some way?Not at all,?Total Score?0.?Interpretation and Intervention?Depression Screening Findings?Negative,?Follow-Up for Depression?: review of PHQ-9 found negative result, no follow-up needed.? * ROS:?General/Constitutional:?Denies?Chills.?Denies?Fatigue.?Denies?Fever.?Denies?Headache.?ENT:?Denies?Sore throat.?Respiratory:?Denies?Cough.?Denies?Shortness of breath with exertion.?Denies?Sputum production.?Cardiovascular:?Patient denies?chest pain with exertion, , dyspnea on exertion.?Gastrointestinal:?Denies?Diarrhea.?Denies?Nausea.? * Medical History:?colonoscopy done 2010 and was normal; 12/13/18; Colonoscopy 08/28/[address] Valencia - normal, Type 2 diabetes mellitus without complication, without long-term current use of insulin, Type 2 diabetes mellitus without complication, without long-term current use of insulin. * Medications:?Taking Aspir-81 81 MG Tablet Delayed Release 1 tablet Orally Once a day , Taking Fluticasone Propionate 50 MCG/ACT Suspension INHALE 1 SPRAY IN EACH NOSTRIL ONCE A DAY , Taking metFORMIN HCl ER 500 MG Tablet Extended Release 24 Hour take 1 tablet by mouth daily with evening meal Orally twice a day , Taking Spironolactone 25 MG Tablet 1 tablet Orally , Taking amLODIPine Besylate 10 MG Tablet TAKE 1 TABLET BY MOUTH ONCE DAILY , Taking Atorvastatin Calcium 80 MG Tablet TAKE 1 TABLET BY MOUTH ONCE DAILY , Taking Brilinta 60 MG Tablet 1 tablet Orally Twice a day , Taking Valsartan-hydroCHLOROthiazide 320-12.5 MG Tablet TAKE 1 TABLET BY MOUTH ONCE DAILY , Not-Taking/PRN Tylenol 8 Hour 650 MG Tablet Extended Release 2 tablets as needed Orally every 8 hrs , Not-Taking/PRN Ventolin HFA 108 (90 Base) MCG/ACT Aerosol Solution 1 puff as needed Inhalation every 4 hrs , Medication List reviewed and reconciled with the patient * Allergies:?N.K.D.A. Objective: * Vitals:?Ht: 74, Wt: 199, BMI :25.55, BP:132/66, Wt-k.27. weight is down 8 pounds since 08-05-24. * ???Past Orders: ???Lab:Liver Panel (Order Da te 01/27/2025) (Collection Date & Time 01/27/2025 07:15 AM) ? Value Reference Range ?Bilirubin Total 0.4 0.0- 1.0 - mg/dL ?Bilirubin Direct 0.2 0.0 -0.5 - mg/dL ?Aspartate Amino Transferase 29 5-37 - U/L ?Alanine Aminotransferase 25 0-40 - U/L ?Total Protein 7.3 6.5-8. 0 - g/dL ?Albumin Level 4.3 3.5-5. 0 - g/dL ?Alkaline Phosphatase 93 39-117 - U/L ???Lab:Glucose Fasting (Orde r 01/27/2025) (Collection Date & Time 01/27/2025 07:15 AM) ? Value Reference Range ?Glucose Fasting 111 H 60-9 9 - mg/dL ???Lab:Lipid Panel with Refl ex (Order 01/27/2025) (Collection & Time 01/27/2025 07:15 AM) ? Value Reference Range ?Triglycerides 40 <150 - mg/dL ?Cholesterol 127 <200 - m g/dL ?LDL Cholesterol Calculated 61 <100 - mg/dL ?HDL Cholesterol 58 >40 - mg/dL ???Lab:Hemoglobin A1c (Order Date 01/27/2025) (Collection Date & Time - 01/27/2025 07:15 AM) ? Value Reference Range ?Hemoglobin A1c % 5.9 <6. 0 - % ?Estimated Average Glucose 123 - mg/dL * Examination: ???General Examination: ?GENERAL APPEARANCE:?alert, well hydrated, in no distress.?HEAD:?normocephalic.?SKIN:?good turgor.?HEART:?2/6 murmurs, rubs, gallops, regular rate and rhythm.?LUNGS:?no wheezes, rales, rhonchi, good air movement, clear to auscultation bilaterally.? Assessment: * Assessment: 1.?Type 2 diabetes, controll ed, with neuropathy - E11.40 (Primary)???2.?Hypercholesteremia - E78.00???3.?Essential hypertension - I10??? Plan: * Treatment: 2.?Hypercholesteremia? Continue Atorvastatin Calcium Tablet, 80 MG, TAKE 1 TABLET BY MOUTH ONCE DAILY.?? 3.?Essential hypertension? Continue Spironolactone Tablet, 25 MG, 1 tablet, Orally;?Continue amLODIPine Besylate Tablet, 10 MG, TAKE 1 TABLET BY MOUTH ONCE DAILY.?? Notes: stable, will cntiue current regiment?? * * The named appointment provid er may or may not be the originator of this progress note, and it is not deemed complete until electronically signed by the appointment provider. Sign off status: Pending * Provider:?Kevin Mtz MD Date:?0 02/03/2025 Generated for Van shanks/Hayes/eTransmitting on:?02/03/2025 02:00 PM EDT History and Physical Notes * HPI [...]
--- OUTSIDE RECORDS SUMMARY | 2025-02-03 14:00 | XMS_ITS ---
Author Organization Kevin Mtz MD Address [address] [place] [phone] Care Team Providers Care Chemical Preparer Name Role Phone BibiCynthian Primary Care Provider REASON FOR VISIT [facility] Risk Codes Encounters Encounter Location Date Provider Diagnosis Kevin Mtz MD [address] [place] [phone] 01/20/2025 Kevin Mtz Plan Of Treatment Next Appt Details Provider Name:Kevin ibarra, 07/31/2025 07:00:00 AM, [address] [place] [address], [address] [facility], [place], [place], [phone], Provider Name:Kevin ibarra, 08/07/2025 10:00:00 AM, [address] [place] [address], [address] [place] [address], [phone], Progress Notes * Rosalba CLIFFORDOB:1950 ( 75 yo M)Acc No.[id number]:01/20/2025 Patient:Nam JEROME :1950???Age:74 Y???Sex:Male Address:[address] [place] [address], [place], [address] * * Date:?
--- OUTSIDE RECORDS SUMMARY | 2025-02-03 14:00 | XMS_ITS | Clinical Summary ---
Author Organization [facility] Address [address] [place] [address] Care Team Providers Care Marketing Research Intern Name Role Phone Unavailable Primary Care Provider [...]
--- OUTSIDE RECORDS SUMMARY | 2025-02-03 14:00 | XMS_ITS | Clinical Summary ---
Author Organization [facility] Address [address] [place] [address] Phone Care Team Providers Care Product Ambassador Name Role Phone Kevin Mtz MD Primary [...] patient's age to complete this topic Insurance [facility] Care Teams Product Ambassador Relationship Specialty Start Date End Date Kevin Mtz MD [id number] [place], [place] PCP - General 11/16/20
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
--- OUTSIDE RECORDS SUMMARY | 2025-02-03 14:01 | XMS_ITS ---
Author Organization Kevin Mtz MD Address [address] [place], [place] [id number] Care Team Providers Care Cement Paver Name Role Phone Bibi Kevin Primary Care Provider Results Component Value Reference Range Notes Liver Panel Reviewed date:01/27/2025 12:45:27 PM Interpretation: Performing Lab:[address] [address] Notes/Report: Bilirubin Total 0.4 0.0-1.0 mg/dL Bilirubin Direct 0.2 0.0-0.5 mg/dL Aspartate Amino Transferase 29 5-37 U/L Alanine Aminotransferase 25 0-40 U/L Total Protein 7.3 6.5-8.0 g/dL Albumin Level 4.3 3.5-5.0 g/dL Alkaline Phosphatase 93 39-117 U/L Glucose Fasting Reviewed date:01/27/2025 12:43:38 PM Interpretation: Performing Lab:[address] [place] [address] Notes/Report: Glucose Fasting 111 60-99 mg/dL A fasting glucose from 100-125 mg/dl is considered impaired (pre-diabetes). Lipid Panel with Reflex Reviewed date:01/27/2025 12:43:25 PM Interpretation: Performing Lab:[facility], [address] [place] [phone] Notes/Report: Triglycerides 40 <150 mg/dL Desirable Triglyceride: [...] A1c Reviewed date:01/27/2025 12:42:22 PM Interpretation: Performing Lab:[facility], [address] [place] [phone] Notes/Report: Hemoglobin A1c % 5.9 <6.0 % [...] average glucose, using the formula of the Z8R-Riuleod Average Glucose study (ADAG), Diabetes Care, Vol.31,#8, Jun. 2007 REASON FOR VISIT FASTING LIPIDS Encounters Encounter Location Date Provider Diagnosis Kevin Mtz MD [address] [place] [address] [address] [place], [place] [id number] 01/27/2025 Kevin Mtz Type 2 diabetes, controlled, 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 and Hypercholesteremia E78.00 Assessments Encounter Date Diagnosis (ICD Code) Assessment Notes Treatment Notes Treatment Clinical Notes Section Notes 01/27/2025 Type 2 diabetes, controlled, with neuropathy (ICD-10 - E11.40) 01/27/2025 Hypercholesteremia (ICD-10 - E78.00) Plan Of Treatment Next Appt Details Provider Name:Kevin Hernandez ier, 07/31/2025 07:00:00 AM, [address], [address], [place], [place], [phone], Provider Name:Kevin Hernandez ier, 08/07/2025 10:00:00 AM, [address], [address], [place], [place], [phone], Progress Notes * Rosalba CLIFFORDOB:1950 ( 75 yo M)Acc No.[id number]:01/27/2025 Progress Note Patient:?Nam CLIFFORD Provider:?Kevin Mtz MD :1950???Age:74 Y???Sex:Male Zack e:01/27/2025 Address:[address] [place], [place] [phone] Subjective: * Chief Complaints: * ???1. FASTING LIPIDS. * Medical History:? Objective: * Vitals:? Assessment: * Assessment: 1.?Type 2 diabetes, controll ed, with neuropathy - E11.40 (Primary)???2.?Hypercholesteremia - E78.00??? Plan: * Treatment: 2.?Hypercholesteremia?LAB: Liver Panel (Collection Date & Time - 01/27/2025 07:15 AM) ?LAB: Glucose Fasting (Collection Date & Time - 01/27/2025 07:15 AM) ?LAB: Lipid Panel with Reflex (Collection Date & Time - 01/27/2025 07:15 AM) ?LAB: Hemoglobin A1c (Collection Date & Time - 01/27/2025 07:15 AM) * Procedure Codes:?68789 VENIP UNCT, ROUTINE* * * The named appointment provid er may or may not be the originator of this progress note, and it is not deemed complete until electronically signed by the appointment provider. Sign off status: Pending * Provider:?Kevin Mtz MD Date:?0 01/27/2025 Generated for Van shanks/Hayes/Nenaitting on:?02/03/2025 02:00 PM EDT
== END 2025-02-03 12:21 | disposition home or self-care (01) ==
LOC: HO.LNP 12:20
PROVIDERS: Visit Provider Internal Medicine
DX: E11.40 Type 2 diabetes mellitus with diabetic neuropathy, unspecified (principal)
CPT/HCPCS: 81001; 82043; 82570

== ENCOUNTER 2025-02-28 09:43 | Outpatient (AMB) | payer MEDICARE, SELFPAY ==
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
--- OUTSIDE RECORDS SUMMARY | 2025-02-28 10:00 | XMS_ITS | Clinical Summary ---
Author Organization [facility] Address [address] [place] [address] Care Team Providers Care Solar Sales Name Role Phone Unavailable Primary Care Provider Unavailabl e Immunizations Immunization Administration Dates Next Due Influenza Inactivated/Split Preservative Free IM 09/14/2010,09/25/2007 Pneumococcal Polysaccharide 23-Valent 11/09/2007 Social History Tobacco Use Types Packs/Day Years Used Date Smoking Tobacco: Never Assessed Sex and Gender Information Value Date Recorded Sex Assigned at Not on file Legal Sex Male 1:48 PM EDT Gender Identity Not on file Sexual Orientation [...]
--- OUTSIDE RECORDS SUMMARY | 2025-02-28 10:00 | XMS_ITS | Clinical Summary ---
Author Organization [facility] Address [address] [place] [address] Phone Care Team Providers Care Bearing Press Machine Operator Name Role Phone Kevin Mtz MD Primary [...] Due Date Last Done Comments Pneumococcal Vaccine: 50+ Ye ars (1 of 2 - PCV) 02/03/1968 Influenza Vaccine (Season Ended) 2025 Hepatitis B Vaccine Aged Out No longe r eligible based on patient's age to complete this topic Insurance [facility] Care Teams Bearing Press Machine Operator Relationship Specialty Start Date End Date Kevin Mtz MD [address] [place] [address] [id number] NORE[place]Y VEGA PCP - General 11/16/20
[2025-02-28 10:16] VITALS: BP 132/52; PULSE 56; BMI 24.7
--- NOTE | 2025-02-28 10:16 | A.OFFVIS_ITS ---
Vital Signs 02/28/25 10:16 Height 6 ft 3 in Weight 197 lb 15.602 oz BMI 24.7 BP 132/52 L Blood Pressure Location Lt brachial Position Sitting Pulse 56 Pulse Source Pulse Oximeter Intake Visit Reasons: 6m follow up Special Education Supervisor Required: No Allergies No Known Allergies [No Known Allergies*] Allergy (Verified 02/28/25 10:18) Medication List - Last Reconciled 02/28/25 by Ivy Washington, PARISA-C amlodipine 10 mg PO DAILY [Aspirin Low Dose 81 mg PO DAILY] atorvastatin 80 mg PO DAILY fluticasone propionate 50 mcg/actuation 1 spray intranasal DAILY metformin ER 500 mg PO BID spironolactone 25 mg PO DAILY ticagrelor (Brilinta) 90 mg PO BID valsartan-hydrochlorothiazide 320-12.5 mg 1 tab PO DAILY HPI HPI 6m follow up: Details: Nam is a 75-year-old male past medical history of hypertension, hyperlipidemia, diabetes, obstructive sleep apnea with CPAP use, CAD, REGI to the [facility] who now presents for follow-up. Today he reports that he has been feeling well since last visit in August. He denies ever having chest discomfort at rest or with activity. He denies shortness of breath, palpitations, lightheadedness, presyncope, syncope, falls. 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 He tells me he walks 6-7 miles a day with his dogs which he tolerates well. He is taking all meds as directed. [facility] Medical History Trace mitral valve regurgitation Other and unspecified hyperlipidemia Essential hypertension Type 2 diabetes mellitus with unspecified complications Bone spur of ankle Arthritis Back pain Diabetes Sleep apnea with use of continuous positive airway pressure (CPAP) Hyperlipidemia Hypertension Surgical History History of total left knee replacement H/O varicose vein ligation Hx of laparoscopic gastric banding History of colonoscopy Family History Father No problems noted. Mother No problems noted. Social History Are you a primary hospice patient care secretary to a significant other at home: No Do you presently have visiting nurse or other home services: No Alcohol intake: current Alcohol intake frequency: holidays/special occasions only Patient Tobacco Use Status: Former Tobacco user Tobacco use type: Cigarette Years Smoked: 5 +/- Second Hand Smoke Exposure: No Review of Systems Const All systems reviewed & are unremarkable except as noted in HPI and below ENT Denies dizziness Card Denies chest pain, Denies chest pain at rest, Denies chest pain with activity, Denies rapid heart rate, Denies pedal edema, Denies edema, Denies leg edema, Denies lightheadedness, Denies palpitations, Denies dyspnea, Denies dyspnea on exertion and Denies orthopnea Resp Denies cough, Denies dyspnea and Denies dyspnea on exertion GI Denies hematochezia and Denies change in stool character Musc Denies abnormal gait, Denies limited range of motion, Denies muscle cramps, Denies muscle weakness, Denies numbness, Denies radiating pain into limb, Denies stiffness and Denies tingling Neuro Denies abnormal gait, Denies dizziness, Denies numbness and Denies tingling Endo Denies palpitations Physical Exam Vital Signs: Last Vital Signs Pulse 56 02/28/25 10:16 BP 132/52 L 02/28/25 10:16 BMI result Body Mass Index 24.7 Const General: cooperative, healthy appearing, comfortable and no acute distress Orientation/consciousness: patient oriented x3 Neck Neck: Yes normal visual inspection and Yes no JVD Resp Effort & Inspection: normal respiratory effort Auscultation: clear to auscultation bilaterally, no crackles, no rales, no rhonchi and no wheezes Cardio Rate: regular rate Rhythm: regular rhythm Heart sounds: S1 normal heart sound present, S2 normal heart sound present, Murmur heart sound present (2/6 systolic, right sternal border) and no rubs Neuro General: patient oriented x3 Extrem General: Yes normal to inspection, No no pedal edema and No calf tenderness Psych Appearance: grossly normal Mental Status: mental status grossly normal Speech and movement: Normal speech and movement present Assessment & Plan Assessment & Plan (1) CAD (coronary artery disease): Code(s): I25.10 - Atherosclerotic heart disease of [place] coronary artery without angina pectoris Category: Medical Plan: Cardiac evaluation done last year for abnormal EKG showing downsloping STs inferior, anterior and lateral leads. An echocardiogram was done on 01/19/2024 showing EF 55-60%, mild LVH, grade 2 diastolic dysfunction, [id number] aortic stenosis, no regional wall motion abnormalities noted. He did have an exercise nuclear stress test done on 02/02/2024 with exercise 6.5 minutes, with n o anginal symptoms, with EKG changes meeting criteria for ischemia and nuclear imaging that can not exclude prior basal inferior infarct. Cardiac catheterization on 04/16/2024 showing nonobstructive disease in the LAD, 1st diagonal and left circumflex, with distal RCA 90% stenosis, angioplasty and REGI placed. Since that time he has reported more energy. Recent echo showing normal EF, no regional wall motion abnormalities. Continue med management for stable CAD. Continue aspirin indefinitely. Continue Brilinta until 1 year post stent, can be discontinued on 04/16/2025, patient informed. Continue amlodipine, valsartan/hydrochlorothiazide for blood pressure control. Continue high-dose atorvastatin with ideal LDL goal less than 70. Labs done on 01/27/2025 showed LDL 61. Signs and symptoms of angina reviewed with him. Cardiology follow-up in 6 months, sooner if needed. (2) S/P cardiac catheterization: Comment: 04/16/2024, left main normal, lad proximal 50% stenosis, 1st diagonal ostial 40% stenosis, left circumflex mid 60% stenosis, RCA distal 90% stenosis, REGI placed. Code(s): Z98.890 - Other specified postprocedural states Category: Surgical Plan: as above (3) Stented coronary artery: Comment: REGI to the RCA 04/16/2024 Code(s): Z95.5 - Presence of coronary angioplasty implant and graft Category: Surgical Plan: As above (4) Essential hypertension: Code(s): I10 - Essential (primary) hypertension Category: Medical Plan: Blood pressure goal less than 130/80. Near goal today. No med changes made. Reviewed low-salt diet. (5) Other and unspecified hyperlipidemia: Code(s): E78.5 - Hyperlipidemia, unspecified Category: Medical Plan: LDL goal less than 70. Well controlled with atorvastatin 80 mg daily. (6) Nonrheumatic aortic (valve) stenosis: Code(s): I35.0 - Nonrheumatic aortic (valve) stenosis Category: Medical Plan: Known history of aortic stenosis. Echo noted on examination. Echo last year showed [id number] aortic stenosis, mean gradient 13 mmHg. Repeat echo done 01/09/2025 showing mild aortic stenosis with mean gradient 9 mm of mercury, aortic valve area 2.29 centimeter sq. Plan for repeat echocardiogram in 1 year. (7) Ascending aorta dilatation: Code(s): I77.810 - Thoracic aortic ectasia Category: Medical Plan: Echocardiogram 01/19/2024 shows ascending aorta 3.7 cm, sinus of Valsalva 3.5 cm. Echocardiogram 01/09/2025 shows ascending aorta 3.3 cm, sinus of Valsalva 4.4 cm. Measurement for sinus of Valsalva has increased. Will check with Dr. Nova regarding this discrepancy. Unclear if it is technical in nature. Plan Time spent on chart review, documentation, interview and assessment Orders: Orders CA echo transthoracic complete 11 Months I35.0 - Nonrheumatic aortic (valve) stenosis, I77.810 - Thoracic aortic ectasia Coding Level of Care Code Est Pt Level 4 (00888) Complex EM visit Add On G2211 Diagnoses CAD (coronary artery disease) I25.10 S/P cardiac catheterization Z98.890 Stented coronary artery Z95.5 Essential hypertension I10 Other and unspecified hyperlipidemia E78.5 Nonrheumatic aortic (valve) stenosis I35.0 Ascending aorta dilatation I77.810 Time Spent (min) 28
== END 2025-02-28 10:42 | disposition home or self-care (01) ==
LOC: HO.HCS 09:44
PROVIDERS: PCP Internal Medicine; Visit Provider Nurse Practitioner Family
DX: I25.10 Atherosclerotic heart disease of native coronary artery without angina pectoris (principal); Z98.890 Other specified postprocedural states; Z95.5 Presence of coronary angioplasty implant and graft; I10 Essential (primary) hypertension; E78.5 Hyperlipidemia, unspecified; I35.0 Nonrheumatic aortic (valve) stenosis; I77.810 Thoracic aortic ectasia
CPT/HCPCS: 99214; G2211

== ENCOUNTER → 2025-02-28 09:43 | Outpatient (BNVA) | payer MEDICARE, SELFPAY | PROVIDERS: PCP Internal Medicine; Visit Provider Nurse Practitioner Family | DX: I10 Essential (primary) hypertension (principal); I25.10 Atherosclerotic heart disease of native coronary artery without angina pectoris; I35.0 Nonrheumatic aortic (valve) stenosis; E78.5 Hyperlipidemia, unspecified; I77.810 Thoracic aortic ectasia; Z95.5 Presence of coronary angioplasty implant and graft; Z98.890 Other specified postprocedural states | CPT/HCPCS: 99212 ==

== ENCOUNTER 2025-07-31 11:04 | Outpatient (REF) | payer MEDICARE, SELFPAY ==
[2025-07-31 11:07] LABS: MANUAL DIFF FLAG NO
[2025-07-31 11:17] LABS: Hematocrit 34.6 % (42.0-52.0); Hemoglobin 11.4 g/dl (14.0-18.0); Imm Gran Abs Auto 0.03 X10*3/uL (0.00-0.03); Imm Gran Pct Auto 0.3 % (0.0-0.4); Lymphocytes Absolute Auto 1.7 X10*3/uL (1.2-4.9); Mean Corpuscular HGB Conc 32.9 g/dl (31.0-36.0); Mean Corpuscular Hemoglobin 30.5 pg (27.0-33.0); Mean Corpuscular Volume 92.5 fL (80.0-98.0); NRBC Abs Auto 0.000 X10*3/uL (0.0-0.012); NRBC Pct Auto 0.0 /100WBC (0.0-0.2); Platelet Count 236 X10*3/uL (160-400); Red Blood Count 3.74 X10*6/uL (4.60-5.80); White Blood Count 9.5 X10*3/uL (4.8-10.8)
[2025-07-31 11:18] LABS: Appearance Urine Clear; Glucose Urine UA Negative (Negative); PH 5.5 (5.0-9.0); Specific Gravity - Urine 1.020 (1.005-1.025)
[2025-07-31 11:36] LABS: Hemoglobin A1C 126.1519 umol/L; Total Hemoglobin (HGBA1C) 2937.8510 umol/L
[2025-07-31 11:51] LABS: Alanine Aminotransferase 22 U/L (0-40); Albumin Level 4.8 g/dL (3.5-5.0); Alkaline Phosphatase 79 U/L (39-117); Anion Gap 15 (12-20); Aspartate Amino Transferase 25 U/L (5-37); Blood Urea Nitrogen 31 mg/dL (9-16); Calcium 9.5 mg/dL (8.4-10.2); Carbon Dioxide 24 mmol/L (22-29); Chloride 112 mmol/L (96-108); Cholesterol 144 mg/dL (<200); Estimated Glomerular Filt Rate > 60; HDL Cholesterol 56 mg/dL (>40); Potassium 4.7 mmol/L (3.3-5.1); Sodium 146 mmol/L (135-145); Total Protein 7.6 g/dL (6.5-8.0); Triglycerides 49 mg/dL (<150)
[2025-07-31 11:54] LABS: PSA,Total (Free>4and<10) 0.99 ng/mL (0.00-4.00)
[2025-07-31 12:00] LABS: Microalbum/Creatinine Ratio Ur 21.1 ug/mg cr (<30)
== END 2025-07-31 11:05 | disposition home or self-care (01) ==
LOC: HO.LNP 11:04
PROVIDERS: Visit Provider Internal Medicine
DX: Z00.00 Encounter for general adult medical examination without abnormal findings (principal); Z12.5 Encounter for screening for malignant neoplasm of prostate; I10 Essential (primary) hypertension; E11.40 Type 2 diabetes mellitus with diabetic neuropathy, unspecified; E78.00 Pure hypercholesterolemia, unspecified
CPT/HCPCS: 80053; 80061; 81001; 82043; 82570; 83036; 84153; 85025

== ENCOUNTER 2025-09-02 08:07 | Inpatient (IN) | payer MEDICARE, SELFPAY ==
--- OUTSIDE RECORDS SUMMARY | 2024-07-15 06:00 | XMS_ITS ---
Author Organization Kevin Mtz MD Address [address] [place], [place] [id number] Care Team Providers Care Warp Coiler Name Role Phone Bibi Kevin Primary Care Provider [phone] Results Component Value Reference Range Notes Complete Blood Count Auto Di ff Reviewed date:07/16/2024 08:30:25 AM Interpretation: Performing Lab:[facility], [address] [place] [phone] Notes/Report: White Blood Count 5.4 4.8-10.8 X10*3/uL [...] NRBC Abs Auto 0.000 0.0-0.012 X10*3/uL Comprehensive [facility]. Panel Fa st Reviewed date:07/16/2024 08:25:25 AM Interpretation: Performing Lab:[facility], [address] [place] [phone] Notes/Report: Sodium 141 135-145 mmol/L Potassium 4.5 3.3-5.1 mmol/L Slight Hemoly sis Chloride 107 96-108 mmol/L Carbon Dioxide 24 22-29 mmol/L Anion Gap 15 12-20 Blood Urea Nitrogen 22 9-16 mg/dL Creatinine 1.22 0.5-1.4 mg/dL Estimated Glomerular Filt Rate 58 NOTE: For -Chilean individuals, multiply the result by 1.210. Chronic [...] Panel Reviewed date:07/15/2024 04:00:45 PM Interpretation: Performing Lab:[facility], [address] [place] [phone] Notes/Report: Triglycerides 79 <150 mg/dL Desirable Triglyceride: [...] (Free>4and<10) Reviewed date:07/15/2024 04:01:07 PM Interpretation: Performing Lab:[facility], [address] [place] [phone] Notes/Report: PSA,Total (Free>4and<10) 1.08 0.00-4.00 ng/mL A [...] Random Reviewed date:07/15/2024 04:00:56 PM Interpretation: Performing Lab:[facility], [address] [place] [phone] Notes/Report: Creatinine Urine 114.07 Microalbumin Urine 35.0 Microalbum/Creatinine Ratio Ur 30.6 <30 ug/mg cr Albumin/Creatinine Ratio Reference Ranges: Normal: < 30 ug/mg creatinine Microalbuminuria: 30 - 300 ug/mg creatinine Clinical Albuminuria: > 300 ug/mg creatinine Hemoglobin A1c Reviewed date:07/15/2024 04:04:15 PM Interpretation: Performing Lab:[facility], [address] [place] [phone] Notes/Report: Hemoglobin A1c % 5.9 <6.0 % [...] average glucose, using the formula of the H9M-Arioafz Average Glucose study (ADAG), Diabetes Care, Vol.31,#8, Jun. 2007 UA ClnCatch+Micro w/rflx Cul t Reviewed date:07/16/2024 08:48:29 AM Interpretation: Performing Lab:[facility], [address] [place] [phone] Notes/Report: Urine, Clean Catch Color Urine Yellow Appearance Urine Clear PH 5.0 5.0-9.0 Glucose Urine UA Negative Negative mg/dL Urine Blood Negative Negative Specific [place] - Urine 1.020 1.005-1.025 Urine Protein Negative [...] Location Date Provider Diagnosis Kevin Mtz MD [address] [place] [phone] 07/15/2024 Kevin Mtz Annual physical exam Z00.00 [...] Treatment Next Appt Details Provider Name:Kevin ibarra, 09/11/2025 08:15:00 AM, [address] [place] [address], [address], [phone], Provider Name:Kevin ibarra, 02/10/2026 07:30:00 AM, [address] [place] [address], [address], [phone], Provider Name:Kevin ibarra, 02/17/2026 10:00:00 AM, [address] [place] [address], [address], [phone], Provider Name:Kevin ibarra, 08/03/2026 07:30:00 AM, [address] [place] [address], [phone], Provider Name:Kevin ibarra, 08/10/2026 10:30:00 AM, [address] [place] [address], [phone], Progress Notes * Rosalba CLIFFORDOB:1950 ( 75 yo M)Acc No.[id number]:07/15/2024 Progress Note Patient: Nam LEHMAN Provider: Geo Mtz MD :1950 A ge:74 Y S ex:Male Date:07/15/2024 Address:[address] [place] [address], [id number] Subjective: * Chief Complaints: * 1 . [...] - 07/15/2024 10:00 AM) L AB: Comprehensive [facility]. Panel Fast (Collection Date & Time - [...] - 07/15/2024 10:00 AM) L AB: Comprehensive Trinity. Panel Fast (Collection Date & Time - [...] - 07/15/2024 10:00 AM) L AB: Comprehensive [facility]. Panel Fast (Collection Date & Time - [...] FLU VAC NO FEE SCHED SAME DAY, [id number] VENIPUNCT, ROUTINE* * * The named appointment provid er may or may not be the originator of this progress note, and it is not deemed complete until electronically signed by the appointment provider. Sign off status: Pending * Provider: Geo Mtz MD Date: 0 07/15/2024 Generated for Van shanks/Hayes/Nenaitting on: 1 09:39 AM EDT
--- OUTSIDE RECORDS SUMMARY | 2024-08-05 06:00 | XMS_ITS ---
Author Organization Kevin Mtz MD Address [address] [place] [phone] Care Team Providers Care Hand Laminator Name Role Phone Kevin Mtz Primary Care [...] Problem Status W/U Status Risk Notes Problem [id number] History of angioplasty (Z98.62) Active confirmed Vital Signs Blood pressure systolic 138 mm Hg 08/05/20 24 Blood pressure diastolic 60 mm Hg 024 Height 74 in 08/05/2024 Weight 207 lbs 08/05/2024 BMI 26.57 kg/m2 08/05/2024 weight is down 23 pounds [facility] 4-4-24 Encounters Encounter Location Date Provider Diagnosis Kevin Mtz MD [address] [place] [address] [address] [place], [place] [phone] 08/05/2024 Kevin Mtz Aortic stenosis, mod erate [...] Up: 6 Months, Reason: Provider Name:Kevin ibarra, 09/11/2025 08:15:00 AM, [address] [place] [address], [address], [phone], Provider Name:Kevin ibarra, 02/10/2026 07:30:00 AM, [address] [place] [address], [address], [phone], Provider Name:Kevin ibarra, 02/17/2026 10:00:00 AM, [address] [place] [address], [address], [phone], Provider Name:Kevin ibarra, 08/03/2026 07:30:00 AM, [address] [place] [address], [address], [phone], Provider Name:Kevin Hernandez ier, 08/10/2026 10:30:00 AM, [address], [address], [place], [place], [phone], Progress Notes * Rosalba CLIFFORDOB:1950 ( 74 yo M)Acc No.[id number]:08/05/2024 Progress Notes Patient: Nam Dubon Provider: Geo Mtz MD :1950 A ge:74 Y S ex:Male Date:08/05/2024 Address:[address] [place] [address], [facility] Subjective: * Chief Complaints: * A NNUAL [...] Pets: none. no Travel outside of the [place]. * Medications: T akingBrilinta 60 MG [...] mg/dL Urine Blood Negative Negative - Specific [place] - Urine 1.020 1.005-1.025 - Urine Protein [...] Urine 0-2 0-2 - /LPF L ab:Comprehensive [place]. Panel Fast (Order Date - 07/15/2024) (Collection [...] 1 TABLET BY MOUTH ONCE DAILY. Notes: clemente, will continue current regiment 5. T ype [...] C ounseling for abnormal BMI provided?Yes, Matt morsee Normal BMI Follow-up G debbie encouragement to exercise. Diabetes Care Plan: P [...] MD Date: 0 08/05/2024 Generated for Van shanks/Hayes/Jennifersmitting on: 1 09:39 AM EDT History and Physical Notes * HPI (History [...] had two or more falls in the st year?: No Communication Needs Communication Needs Does [...]
--- OUTSIDE RECORDS SUMMARY | 2025-01-20 06:15 | XMS_ITS ---
Author Organization Kevin Mtz MD Address [address] [place] [phone] Care Team Providers Care Zoo Keeper Name Role Phone Bibi Kevin Primary Care Provider REASON FOR VISIT HCC Risk Codes Encounters Encounter Location Date Provider Diagnosis Kevin Mtz MD [address] [facility] [address] [place] [phone] 01/20/2025 Kevin Mtz Plan Of Treatment Next Appt Details Provider Name:Kevin ibarra, 09/11/2025 08:15:00 AM, [address] [place] [address], Suite [facility], [place], [place], [phone], Provider Name:Kevin ibarra, 02/10/2026 07:30:00 AM, [address] [place] [address], Suite [facility], [place], [place], [phone], Provider Name:Kevin ibarra, 02/17/2026 10:00:00 AM, [address], [address], [place], [phone], Provider Name:Kevin Hernandez fred, 08/03/2026 07:30:00 AM, [address] [facility] [address], [address], [place], [phone], Provider Name:Kevin Hernandez fred, 08/10/2026 10:30:00 AM, [address] [facility] [address], [address], [place], [phone], Progress Notes * Rosalba CLIFFORDOB:1950 ( 75 yo M)Acc No.[id number]:01/20/2025 Patient: Nam LEHMAN :1950 A ge:74 Y S ex:Male Address:[address] [place] [address], [phone] * true * Date: Generated for Van shanks/Hayes/eTjuliasmitting on: 09:39 AM EDT
--- OUTSIDE RECORDS SUMMARY | 2025-01-27 03:15 | XMS_ITS ---
Author Organization Kevin Mtz MD Address [address] [place], [place] [phone] Care Team Providers Care Aligning Checker Name Role Phone Bibi Kevin Primary Care Provider Results Component Value Reference Range Notes Liver Panel Reviewed date:01/27/2025 12:45:27 PM Interpretation: Performing Lab:[address] [phone] Notes/Report: Bilirubin Total 0.4 0.0-1.0 mg/dL Bilirubin Direct 0.2 0.0-0.5 mg/dL Aspartate Amino Transferase 29 5-37 U/L Alanine Aminotransferase 25 0-40 U/L Total Protein 7.3 6.5-8.0 g/dL Albumin Level 4.3 3.5-5.0 g/dL Alkaline Phosphatase 93 39-117 U/L Glucose Fasting Reviewed date:01/27/2025 12:43:38 PM Interpretation: Performing Lab:[address] [place] [address] Notes/Report: Glucose Fasting 111 60-99 mg/dL A fasting glucose from 100-125 mg/dl is considered impaired (pre-diabetes). Lipid Panel with Reflex Reviewed date:01/27/2025 12:43:25 PM Interpretation: Performing Lab:[facility], [address] [place] [phone] Notes/Report: Triglycerides 40 <150 mg/dL Desirable Triglyceride: [...] A1c Reviewed date:01/27/2025 12:42:22 PM Interpretation: Performing Lab:[facility], [address] [place] [phone] Notes/Report: Hemoglobin A1c % 5.9 <6.0 % [...] average glucose, using the formula of the F9G-Bcfhjzn Average Glucose study (ADAG), Diabetes Care, Vol.31,#8, Jun. 2007 REASON FOR VISIT FASTING LIPIDS Encounters Encounter Location Date Provider Diagnosis Kevin Mtz MD [address] [place] [address] [address] [place], [place] [phone] 01/27/2025 Kevin Mtz Type 2 diabetes, controlled, 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 and Hypercholesteremia E78.00 Assessments Encounter Date Diagnosis (ICD Code) Assessment Notes Treatment Notes Treatment Clinical Notes Section Notes 01/27/2025 Type 2 diabetes, controlled, with neuropathy (ICD-10 - E11.40) 01/27/2025 Hypercholesteremia (ICD-10 - E78.00) Plan Of Treatment Next Appt Details Provider Name:Kevin Denis Mary ier, 09/11/2025 08:15:00 AM, [address] [place] [address], Suite [facility], [place], [place], [phone], Provider Name:Kevin Hernandez ier, 02/10/2026 07:30:00 AM, [address] [place] [address], Suite [facility], [place], [place], [phone], Provider Name:Kevin Denis Mary ier, 02/17/2026 10:00:00 AM, [address] [place] [address], Suite [facility], [place], [place], [phone], Provider Name:Kevin Hernandez ier, 08/03/2026 07:30:00 AM, [address] [place] [address], Suite [facility], [place], [place], [phone], Provider Name:Kevin Hernandez ier, 08/10/2026 10:30:00 AM, [address] [place] [address], Suite [facility], [place], [place], [phone], Progress Notes * DARRINLissette ODELLChinoOB:1950 ( 75 yo M)Acc No.[id number]:01/27/2025 Progress Note Patient: Nam LEHMAN Provider: Geo Mtz MD :1950 A ge:74 Y S ex:Male Date:01/27/2025 Address:[address] [place] [address], [facility] Subjective: * Chief Complaints: * 1 . [...] 01/27/2025 Generated for Van shanks/Hayes/Nenaitting on: 1 09:40 AM EDT
--- OUTSIDE RECORDS SUMMARY | 2025-02-03 06:00 | XMS_ITS ---
Author Organization Kevin Mtz MD Address [address] [place], [place] [id number] Care Team Providers Care Pickling Solution Maker Name Role Phone BibiCynthian Primary Care Provider Allergies No Known Allergies Results Component Value Reference Range Notes Microalbumin, Random Reviewed date:02/03/2025 01:49:57 PM Interpretation: Performing Lab:[facility], [address] [place] [phone] Notes/Report: Creatinine Urine 112.03 Microalbumin Urine 28.0 Microalbum/Creatinine Ratio Ur 24.9 <30 ug/mg cr Albumin/Creatinine Ratio Reference Ranges: Normal: < 30 ug/mg creatinine Microalbuminuria: 30 - 300 ug/mg creatinine Clinical Albuminuria: > 300 ug/mg creatinine UA ClnCatch+Micro w/rflx Cul t Reviewed date:02/03/2025 01:54:17 PM Interpretation: Performing Lab:[facility], [address] [place] [phone] Notes/Report: Urine, Clean Catch Color Urine Yellow Appearance Urine Clear PH 5.0 5.0-9.0 Glucose Urine UA Negative Negative mg/dL Urine Blood Negative Negative Specific [place] - Urine 1.025 1.005-1.025 Urine Protein Negative [...] kg/m2 02/03/2025 weight is down 8 pounds [facility] e 08-05-24 Encounters Encounter Location Date Provider Diagnosis Kevin Mtz MD [address] [place] [address] Drive [address] [place], [place] [phone] 02/03/2025 Kevin Mtz Type 2 diabetes, controlled, [...] regiment Next Appt Details Provider Name:Kevin ibarra, 09/11/2025 08:15:00 AM, [address] [place] [address], [address], [phone], Provider Name:Kevin ibarra, 02/10/2026 07:30:00 AM, [address] [place] [address], [address], [phone], Provider Name:Kevin ibarra, 02/17/2026 10:00:00 AM, [address] [place] [address], [address], [phone], Provider Name:Kevin ibarra, 08/03/2026 07:30:00 AM, [address] [place] [address], [phone], Provider Name:Kevin ibarra, 08/10/2026 10:30:00 AM, [address] [place] [address], [phone], Progress Notes * Rosalba CLIFFORDOB:1950 ( 75 yo M)Acc No.[id number]:02/03/2025 Progress Notes Patient: Nam LEHMAN Provider: Geo Mtz MD :1950 A ge:75 Y S ex:Male Date:02/03/2025 Address:[address] [place] [address], Mayela ramirez [id number] Subjective: * Chief Complaints: * 6 monthWoke [...] 02/03/2025 Generated for Van shanks/Hayes/Nenaitting on: 1 09:39 AM EDT History and [...]
--- OUTSIDE RECORDS SUMMARY | 2025-07-31 04:30 | XMS_ITS ---
Author Organization Kevin Mtz MD Address [address] [place], [place] [id number] Care Team Providers Care Cribber Name Role Phone Bibi Kevin Primary Care Provider Results Component Value Reference Range Notes Complete Blood Count Auto Di ff Reviewed date:07/31/2025 12:27:22 PM Interpretation: Performing Lab:[facility], [address] [place] [phone] Notes/Report: White Blood Count 9.5 4.8-10.8 X10*3/uL [...] NRBC Abs Auto 0.000 0.0-0.012 X10*3/uL Comprehensive [place]. Panel Fa st Reviewed date:07/31/2025 04:25:14 PM Interpretation: Performing Lab:[facility], [address] [place] [phone] Notes/Report: Sodium 146 135-145 mmol/L Potassium 4.7 [...] Panel Reviewed date:07/31/2025 12:25:42 PM Interpretation: Performing Lab:[address] [phone] Notes/Report: Triglycerides 49 <150 mg/dL Desirable Triglyceride: [...] (Free>4and<10) Reviewed date:07/31/2025 12:28:34 PM Interpretation: Performing Lab:[address] [phone] Notes/Report: PSA,Total (Free>4and<10) 0.99 0.00-4.00 ng/mL A [...] Random Reviewed date:07/31/2025 12:41:22 PM Interpretation: Performing Lab:[facility] [phone] Notes/Report: Creatinine Urine 75.73 Microalbumin Urine 16.0 Microalbum/Creatinine Ratio Ur 21.1 <30 ug/mg cr Albumin/Creatinine Ratio Reference Ranges: Normal: < 30 ug/mg creatinine Microalbuminuria: 30 - 300 ug/mg creatinine Clinical Albuminuria: > 300 ug/mg creatinine Hemoglobin A1c Reviewed date:07/31/2025 12:24:03 PM Interpretation: Performing Lab:[address] [phone] Notes/Report: Hemoglobin A1c % 6.1 <6.0 % [...] average glucose, using the formula of the N5N-Wjbqehs Average Glucose study (ADAG), Diabetes Care, Vol.31,#8, Jun. 2007 UA ClnCatch+Micro w/rflx Cul t Reviewed date:07/31/2025 04:27:22 PM Interpretation: Performing Lab:[address] [phone] Notes/Report: [id number] 0700 Urine, Clean Catch Color Urine Yellow Appearance Urine Clear PH 5.5 5.0-9.0 Glucose Urine UA Negative Negative mg/dL Urine Blood Negative Negative Specific [place] - Urine 1.020 1.005-1.025 Urine Protein Negative [...] Date Provider Diagnosis Kevin Mtz MD [address] [place], [place] [phone] 07/31/2025 Kevin Mtz Blood tests for rout [...] Details Provider Name:Kevin ibarra, 09/11/2025 08:15:00 AM, [address] [place] [address], [address], [phone], Provider Name:Kevin ibarra, 02/10/2026 07:30:00 AM, [address] [place] [address], [address], [phone], Provider Name:Kevin ibarra, 02/17/2026 10:00:00 AM, [address] [place] [address], [address], [phone], Provider Name:Kevin ibarra, 08/03/2026 07:30:00 AM, [address] [place] [address], [address], [phone], Provider Name:Kevin ibarra, 08/10/2026 10:30:00 AM, [address] [place] [address], [address], [phone], Progress Notes * Rosalba CLIFFORDOB:1950 ( 75 yo M)Acc No.[id number]:07/31/2025 Progress Note Patient: Lobito ALMARAZALEXNam Provider: Geo Mtz MD :1950 A ge:75 Y S ex:Male Date:07/31/2025 Address:[address] [place] [address], [id number] Subjective: * Chief Complaints: * 1 . [...] - 07/31/2025 07:00 AM) L AB: [facility] [place]. Panel Fast (Collection Date & Time - [...] - 07/31/2025 07:00 AM) L AB: [facility] [place]. Panel Fast (Collection Date & Time - [...] - 07/31/2025 07:00 AM) L AB: [facility] [place]. Panel Fast (Collection Date & Time - [...] * Procedure Codes: 3 6415 VENIPUNCT, ROUTINE*, 81805 FLU VACC PRSV FREE INC ANTIG, G0008 ADMN FLU VAC NO FEE SCHED SAME DAY * * The named appointment provid er may or may not be the originator of this progress note, and it is not deemed complete until electronically signed by the appointment provider. Sign off status: Pending * Provider: Geo Mtz MD Date: 0 07/31/2025 Generated for Van shanks/Hayes/Nenaitting on: 1 09:39 AM EDT
--- OUTSIDE RECORDS SUMMARY | 2025-08-07 06:00 | XMS_ITS ---
Author Organization Kevin Mtz MD Address [address] [place] [phone] Care Team Providers Care Cloth Finishing Range Back Tender Name Role Phone Kevin Mtz Primary Care Provider [phone] Allergies No Known Allergies Results Component Value [...] Status W/U Status Risk Notes Problem Prostatism (03109289) Prostatism (N40.0) Active confirmed Vital Signs Blood pressure systolic 130 mm Hg 08/07/20 25 Blood pressure diastolic 54 mm Hg 025 Height 74 in 08/07/2025 Weight 203 lbs 08/07/2025 BMI 26.06 kg/m2 08/07/2025 Encounters Encounter Location Date Provider Diagnosis Kevin Mtz MD [address] [place] [address] Drive [address] [place] [phone] 08/07/2025 Kevin Mtz Annual physical exam Z00.00 [...] Reason: Provider Name:Kevin ibarra, 09/11/2025 08:15:00 AM, [address], [address], [place], [phone], Provider Name:Kevin Hernandez ier, 02/10/2026 07:30:00 AM, [address], [address], [place], [phone], Provider Name:Kevin Hernandez ier, 02/17/2026 10:00:00 AM, [address] [place] [address] Drive, [address], [place], [phone], Provider Name:Kevin Eckertandi ier, 08/03/2026 07:30:00 AM, [address] [place] [address], [address], [place], [phone], Provider Name:Kevin Hernandez ier, 08/10/2026 10:30:00 AM, [address] [place] [address], Suite [facility], [place], [phone], Progress Notes * Rosalba CLIFFORDOB:1950 ( 75 yo M)Acc No.[id number]:08/07/2025 Progress Notes Patient: Nam LEHMAN Provider: Geo Mtz MD :1950 A ge:75 Y S ex:Male Date:08/07/2025 Address:[address] [place] [address], [place] [phone] Subjective: * Chief Complaints: * A NNUAL [facility] Risk codes needed: E11.36 DM with diabetic [...] mg/dL Urine Blood Negative Negative - Specific [place] - Urine 1.020 1.005-1.025 - Urine Protein [...] Urine 0-2 0-2 - /LPF L ab:Comprehensive [place]. Panel Fast (Order Date - 07/31/2025) (Collection [...] MOUTH ONCE DAILY.?? * Procedure Codes: 8 2270 TEST FOR BLOOD, FECES * Preventive Medicine: [...] Geo Mtz MD Date: Generated for Van shanks/Hayes/eTransmitting on: 09:42 AM EDT History and Physical Notes * [...]
--- OUTSIDE RECORDS SUMMARY | 2025-09-01 07:45 | XMS_ITS ---
Author Organization Kevin Mtz MD Address [address] [place] [address] [phone] Care Team Providers Care Processing Technologist Name Role Phone Kevin Mtz Primary Care Provider Allergies No Known Allergies REASON FOR VISIT Video [phone], c/o headache chills, muscle pain, runny nose [...] Date Provider Diagnosis Kevin Mtz MD [address] [place] [address] [phone] 09/01/2025 Kevin Mtz Influenza J11.1 Assessments Encounter [...] use Next Appt Details Provider Name:Kevin ibarra, 09/11/2025 08:15:00 AM, [address] [place] [address], [phone], Provider Name:Kevin ibarra, 02/10/2026 07:30:00 AM, [address] [place] [address], [phone], Provider Name:Kevin ibarra, 02/17/2026 10:00:00 AM, [address] [place] [address], [phone], Provider Name:Kevin ibarra, 08/03/2026 07:30:00 AM, [address] [place] [address], [phone], Provider Name:Kevin ibarra, 08/10/2026 10:30:00 AM, [address], [address], [place], [place], [phone], Progress Notes * Rosalba CLIFFORDOB:1950 ( 75 yo M)Acc No.[id number]:09/01/2025 Patient: Nam LEHMAN Provider: Geo Mtz MD :1950 A ge:75 Y S ex:Male Date:09/01/2025 Address:[address] [place] [address], [id number] Subjective: * Chief Complaints: * 1 . Video [phone]. 2. C/o headache chills, muscle pain, runny nose head and chest congestion x 4 days. 3. Patient thinks he has Covid but tested negative. * HPI: S ymptom(s): patient is a 75 [facility] male [facility], here as emergency. thinks he has covid. test was negative. flu is positive. has aches pains and balance problem. Telehealth L ocation of provider rendering services: [address], [address], L ocation of patient: a t address listed [...] hortness of breath with exertion. G astrointestinal: Denies D iarrhea. D enies N ausea. * Medical History: c olonoscopy done 2010 and was normal; 12/13/18; Colonoscopy 08/28/[address] Valencia - normal, Type 2 diabetes mellitus without complication, without long-term current use of insulin, Type 2 diabetes mellitus without complication, without long-term current use of insulin. * Medications: T aking Aspir-81 81 MG Tablet Delayed Release 1 tablet Orally Once a day , Taking Fluticasone Propionate 50 MCG/ACT Suspension INHALE 1 SPRAY IN EACH NOSTRIL ONCE A DAY , Taking Tamsulosin HCl 0.4 MG Capsule 1 capsule Orally Once a day , Taking Valsartan-hydroCHLOROthiazide 320-12.5 MG Tablet TAKE 1 TABLET BY MOUTH ONCE DAILY , Taking Spironolactone 25 MG Tablet 1 tablet Orally , Taking metFORMIN HCl ER 500 MG Tablet Extended Release 24 Hour TAKE 1 TABLET BY MOUTH TWICE DAILY WITH MEALS , Taking amLODIPine Besylate 10 MG Tablet TAKE 1 TABLET BY MOUTH ONCE DAILY , Taking Atorvastatin Calcium 80 MG Tablet TAKE 1 TABLET BY MOUTH ONCE DAILY , Not- Taking/PRN Tylenol 8 Hour 650 MG Tablet Extended Release 2 tablets as needed Orally every 8 hrs , Not-Taking/PRN Ventolin HFA 108 (90 Base) MCG/ACT Aerosol Solution 1 puff as needed Inhalation every 4 hrs , Medication List reviewed and reconciled with the patient * Allergies: N .K.D.A. Objective: * Vitals: H t: 74, Wt: 196, BMI:25.16, Wt-k.91. weight at home is 196 BP not taken no temp. Assessment: * Assessment: 1. I nfluenza - J11.1 (Primary) Plan: * Treatment: * * The named appointment provid er may or may not be the originator of this progress note, and it is not deemed complete until electronically signed by the appointment provider. Sign off status: Pending * Provider: Geo Mtz MD Date: Generated for Van shanks/Hayes/Nenaitting on: 09:39 AM EDT History and Physical Notes * HPI (History of Present Illness) Category Sub-Category Detail Notes Category Not es Symptom(s) Telehealth Location of [facility] rendering services:: [address], [address] [...]
[2025-09-02] VITALS (20 sets, daily range): BP systolic 77–135; BP diastolic 47–78; PULSE 59–105; RESP 15–18; TEMP 36.4–37.2; O2SAT 94–100; BMI 24.0
--- NOTE | ~2025-09-02 | CT_ITS ---
EXAMINATION: CT HEAD WITHOUT CONTRAST CLINICAL INFORMATION: Fall with head trauma COMPARISON: 08/15/2023 TECHNIQUE: Contiguous axial imaging was performed from the skull base to vertex without intravenous administration of contrast. This CT examination was performed using dose optimization techniques as appropriate, variously including the following: *Automated exposure control *Adjustment of mA and/or kV according to patient size (this includes techniques or standardized protocols for targeted exams where dose is matched to indication/reason for exam; i.e. extremities or head) *Use of iterative reconstruction technique FINDINGS: There is no acute ischemic change. Periventricular hypodensities are again noted. There is no intracranial hemorrhage. There is no mass-effect or midline shift. Basal cisterns and ventricles are within normal limits for age/cerebral volume. Orbits are symmetrical and unremarkable. Again noted is mucosal thickening in the right frontal sinus, and ethmoid air cells. There is decreased mucosal thickening in the right maxillary sinus and near resolution of left maxillary sinus mucosal thickening. There is no mucosal thickening in sphenoid sinuses. Mastoid air cells are clear. Chondrocalcinosis is noted in the cruciate ligament around dense. There are no bony abnormalities. CT/CT head/brain wo IV con IMPRESSION: No acute intracranial abnormality. Chronic periventricular white matter hypodensities is likely related to small vessel angiopathy, but is a nonspecific finding. Chronic sinus disease involving right frontal, ethmoid, and maxillary sinuses is slightly improved. Electronically signed by: Mekhi Lee MD 09/02/2025 10:14 AM EDT
--- NOTE | ~2025-09-02 | XR_ITS ---
EXAMINATION: XR CHEST CLINICAL INFORMATION: weakness COMPARISON: October 13, 2019. TECHNIQUE: Frontal view of the chest was obtained. FINDINGS: Pulmonary reticular pattern with confluent opacity right upper lung lobe. No pneumothorax. No pleural effusion. Cardiomediastinal silhouette size is normal. Calcified plaque thoracic aorta. Multilevel spondylosis, axial skeleton. XR/XR chest 1V IMPRESSION: Chronic interstitial lung disease with the questionable airspace disease versus neoplasm versus summation's of the right first rib. Electronically signed by: Jerry Segal MD 09/02/2025 09:58 AM EDT
--- NOTE | ~2025-09-02 | CT_ITS ---
EXAMINATION: CT CERVICAL SPINE WITHOUT CONTRAST CLINICAL INFORMATION: Possible head trauma COMPARISON: 08/15/2023 TECHNIQUE: Axial imaging was performed from the base of the skull through T2 without IV contrast. Coronal and sagittal reformatted images were generated from the original axial data set. ALARA: The examination used one or more of the following radiation dose reduction techniques: Automated exposure control, iterative reconstruction, and/or adjustment of mA and/or KV. FINDINGS: Again noted is chondrocalcinosis involving the cruciate ligament dens. There are no erosions to suggest inflammatory synovitis. Anterior osteophytes are noted throughout the cervical spine. Facet osteoarthritis is more advanced on the left than the right with joint space narrowing, vacuum phenomena, subchondral sclerosis and cystic change, and marginal osteophytes. No fracture lucency is identified. 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 No acute fracture. Electronically signed by: Mekhi Lee MD 09/02/2025 10:17 AM EDT
--- NOTE | 2025-09-02 08:14 | ED.GENADULT ---
HPI - General Adult General Chief complaint: General Medical Stated complaint: weakness, sent by PCP for fluids Time Seen by Provider: 09/02/25 08:13 Source: patient and RN notes reviewed Mode of arrival: ambulatory Limitations: no limitations History of Present Illness ED Provider: Gretchen Driscoll PA-C HPI narrative: This is a 75-year-old male, with a past medical history of REGI to the RCA, mitral valve regurgitation, hyperlipidemia, hypertension, type 2 diabetes, DAYRON on CPAP, who presents emergency department with concerns of generalized weakness, dizziness, decreased appetite, body aches which started 5 days ago. Patient states that 5 days ago he felt as though he had a lack of energy. He states that the following day he has felt as though he has had ?no muscle power?, states that he noticed dizziness, which worsened with movement especially with bending over. He states that on Monday he felt as though he was feeling ?off balance?. He states that the dizziness is constant however worsens with positional changes. 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 He states that yesterday he slid out of his bed and struck his head. He states that this morning he stood up from his bed and grabbed onto his dresser as he was feeling profoundly dizzy and ultimately ?blacked out?, and fell, striking the left side of his head. His was a witnessed to this fall and states that he was confused however only lost consciousness for several seconds. Patient denies any fevers, he does endorse chills, sweats, mild headache. He denies any chest pain, shortness of breath, abdominal pain, nausea, vomiting or diarrhea. He states that he has been in his usual state of health. 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 Denies any recent hospitalizations, surgeries. No history of atrial fibrillation. He is not on anticoagulation. No other complaints or concerns at this time. MD complaint: Dizziness, generalized weakness Onset (ago): day(s) Relieving factors: rest Exacerbating factors: movement Associated symptoms: fever/chills, headaches, loss of appetite, syncope and weakness Treatments prior to arrival: none Related Data Home Medications ?Medication ?Instructions ?Recorded ?Confirmed Aspirin Low Dose 81 mg PO DAILY 08/25/20 02/28/25 amlodipine 10 mg tablet 10 mg PO DAILY 06/17/21 02/28/25 atorvastatin 80 mg tablet 80 mg PO DAILY 06/20/22 02/28/25 valsartan 320 1 tab PO DAILY 07/04/23 02/28/25 mg-hydrochlorothiazide 12.5 mg tablet metformin 500 mg tablet,extended 500 mg PO BID 05/07/24 02/28/25 release 24 hr fluticasone propionate 50 1 spray intranasal DAILY 08/08/24 02/28/25 mcg/actuation nasal spray,suspension Previous Rx's ?Medication ?Instructions ?Recorded ticagrelor 90 mg tablet (Brilinta) 90 mg PO BID #180 tabs 04/17/24 spironolactone 25 mg tablet 25 mg PO DAILY #90 tabs 11/18/24 Allergies Allergy/AdvReac Type Severity Reaction Status Date / Time No Known Allergies (No Known Allergy Verified 09/02/25 08:17 Allergies*) Review of Systems Review of Systems: Constitutional : No Fever, + Chills ENT/Mouth : No sore throat, No Rhinorrhea Eyes: No Eye Pain, No Swelling, No Redness Cardiovascular : No Chest Pain, No SOB Respiratory : No Cough, No Sputum Gastrointestinal : + Nausea, No Vomiting, No Diarrhea, No abdominal Pain Genitourinary : No Dysuria, No Hematuria Musculoskeletal : No joint pain, + Myalgias, No Joint Swelling Skin : No Skin Lesions Neuro : No Weakness, No Numbness, + Headache All other systems reviewed and are negative Yes all other systems are reviewed and are negative Constitutional: Constitutional: Reports as per [facility] Past Medical History Medical History Trace mitral valve regurgitation Other and unspecified hyperlipidemia Essential hypertension Type 2 diabetes mellitus with unspecified complications Bone spur of ankle Arthritis Back pain Diabetes Sleep apnea with use of continuous positive airway pressure (CPAP) Hyperlipidemia Hypertension Surgical History History of total left knee replacement H/O varicose vein ligation Hx of laparoscopic gastric banding History of colonoscopy Family History Family History Father No problems noted. Mother No problems noted. Social History Social History Are you a primary care management assistant to a significant other at home: No Do you presently have visiting nurse or other home services: No Alcohol intake: current Alcohol intake frequency: holidays/special occasions only Patient Tobacco Use Status: Former Tobacco user Tobacco use type: Cigarette Years Smoked: 5 +/- Second Hand Smoke Exposure: No Advance Directives: No Advance Directives Information Provided: Yes Physical Exam ED Vital Signs: Vital Signs - 24 hr 09/02/25 08:11 09/02/25 08:36 09/02/25 08:37 Temperature 97.5 F Pulse Rate 82 104 H Pulse Rate [Apical] 101 H Respiratory Rate 18 16 Blood Pressure 108/56 L 95/51 L Pulse Oximetry 100 99 Oxygen Delivery Method Room Air Room Air 09/02/25 08:45 09/02/25 08:47 09/02/25 09:24 Temperature Pulse Rate 105 H 87 Pulse Rate [Apical] Respiratory Rate Blood Pressure 77/56 L 86/56 L 90/50 L Pulse Oximetry Oxygen Delivery Method 09/02/25 10:22 09/02/25 10:47 09/02/25 11:08 Temperature Pulse Rate 99 90 85 Pulse Rate [Apical] Respiratory Rate 16 Blood Pressure 78/47 L 90/57 L 93/51 L Pulse Oximetry 100 Oxygen Delivery Method Room Air 09/02/25 11:18 09/02/25 11:33 09/02/25 11:47 Temperature Pulse Rate 89 81 89 Pulse Rate [Apical] Respiratory Rate 16 Blood Pressure 99/56 L 107/60 111/70 Pulse Oximetry 100 Oxygen Delivery Method Room Air 09/02/25 12:22 Temperature Pulse Rate 79 Pulse Rate [Apical] Respiratory Rate 16 Blood Pressure 94/51 L Pulse Oximetry 98 Oxygen Delivery Method Room Air BMI result Body Mass Index 24.0 Const General: cooperative, comfortable and no acute distress Orientation/consciousness: patient oriented x3 Limitations: no limitations HENMT Head: Yes normal to inspection, Yes normocephalic and Yes atraumatic Ears: hearing grossly normal bilaterally General nose exam: Normal external nose present Face and sinus: Yes normal facial exam Mouth: Normal oral and palatal mucosa present, oropharynx normal and moist mucous membranes Throat: Yes posterior oropharynx normal Eyes General: appearance normal, both eyes and all related structures Eyelids: Yes eyelids normal Conjunctivae: conjunctivae normal Sclerae: sclerae normal Pupils: Equal, round and reactive pupils present EOM: EOMs intact bilaterally Neck Other: No midline spine tenderness on examination. Neck: Yes normal visual inspection, Yes full ROM and Yes no lymphadenopathy Lymphatic: no lymphadenopathy noted Chest Chest palpation & inspection: normal inspection of the chest Resp Effort & Inspection: normal respiratory effort and able to speak in complete sentences Auscultation: clear to auscultation bilaterally, no crackles, no rales, no rhonchi and no wheezes Cardio Other: Heart is irregularly irregular GI Other: Abdomen is soft, nontender, nondistended Inspection: Yes normal to inspection Skin General skin exam: no rashes or lesions noted Trauma: no lacerations or abrasions Wounds: no wounds Neuro General: patient oriented x3 Cranial nerves: Yes CN's II-XII intact bilaterally and Yes Equal, round and reactive pupils present Cognition (Neuro): normal cognition Gait exam (Neuro): Wide-based gait present Motor exam (neuro): 5/5 motor strength present throughout and Pronator motor function not present Coordination: efxe-ka-haya test normal Pupils: Normal pupillary reactivity/response: bilateral Extrem General: Yes normal to inspection Right upper extremity: normal to inspection Left upper extremity: normal to inspection Right lower extremity: normal to inspection Left lower extremity: normal to inspection NIH Stroke Scale Internal: Initial- Upon Arrival Time: 09:08 Level of Consciousness: Alert Level of Consciousness Questions: Answers both questions correctly Level of Consciousness Commands: Performs both tasks correctly Best Gaze: Normal Visual: No visual loss Facial Palsy: Normal Motor Arm (Right): No drift Motor Arm (Left): No drift Motor Leg (Right): No drift Motor Leg (Left): No drift Limb Ataxia: Absent Sensory: Normal Best Language: No aphasia Dysarthia: Normal Extinction and Inattention: No abnormality Score: 0 Medications Administered Discontinued Medications Generic Name Dose Route Start Last Admin Trade Name Freq PRN Reason Stop Dose Admin Sodium Chloride 1,000 mls @ 999 mls/hr 09/02/25 08:51 09/02/25 10:22 Ns IV 09/02/25 09:51 Infused .Q1H1M ONE Infusion Lactated Ringer's 1,000 mls @ 999 mls/hr 09/02/25 10:18 09/02/25 11:30 Lr IV 09/02/25 11:18 Infused .Q1H1M ONE Infusion Medical Decision Making Medical Decision Making [facility] Narrative: This is a 75-year-old male, with a past medical history of mitral valve regurgitation, hyperlipidemia, hypertension, type 2 diabetes, DAYRON on CPAP, who presents emergency department with concerns of generalized weakness, dizziness, decreased appetite, body aches which started 5 days ago. On arrival, patient well-appearing, appears to be under no acute distress. Patient discusses dizziness as well as decreased energy for the last 4 days. He is neurologically intact however upon standing he becomes very dizzy, repeat blood pressure reveals that he becomes hypotensive at 86/56, and tachycardic at 105bpm. Heart is irregularly irregular. Patient has no history of atrial fibrillation. I reviewed this case with my attending physician, Dr. Cleary. EKG was performed revealing AFib with RVR at a ventricular rate of 110 beats per minute. He has no chest pain or shortness of breath. Differential diagnoses include arrhythmia, new onset AFib, CVA, electrolyte derangement, orthostatic hypotension. We will perform labs, viral swabs, obtain a head CT and CTA. Given positive head strike this morning, wanting to rule out ICH, however CTA ordered to rule out CVA as patient does have atrial fibrillation and he is not anticoagulated. He has no chest pain or shortness for breath. He has not hypoxic, therefore PE is less likely. ACS also considered. We will continue to closely monitor. Holding off on beta blockers for rate control given patient is hypotensive. Will treat with 1 L of IV fluids. 10:32 AM 09/02/2025 (Gretchen Driscoll PA-C): Labs returned, patient has leukopenia at 3.5, and a normocytic anemia with an H&H of 12.5/37.7, platelets 87. Elevated trop at 157.2. He has no chest pain or shortness for breath. Creatinine 2.5 with a BUN of 49. Creatinine usually runs around 1.1. Given significant elevation and kidney function, as well as new onset AFib and thrombocytopenia which is new for patient, patient needs to be admitted for further management. We are unable to perform the CTA due to worsening kidney function. Discussed case with Dr. Escudero. Discussed risks and benefits of starting on anticoagulation. Given new onset of thrombocytopenia, he likely needs to be evaluated with hematology while he is admitted. Patient is agreeable for admission. 10:45 AM 09/02/2025 (Gretchen Driscoll PA-C): Discussed case with hospitalist, Aria Estevez NP who recommends observing patient until blood pressure remains greater than 90 systolic only for some time. We will continue to closely monitor, he is currently receiving 1 L of lactated Ringer's. 12:46 PM 09/02/2025 (Gretchen Driscoll PA-C): Patient's blood pressure has remained to be greater than 90 since 1045, given this, discussed again with hospitalist, transfer of care initiated. Differential Diagnosis Differential Diagnoses: The differential diagnosis associated with the presentation includes See above Admission/Observation Consideration of admission/observation: Escalation of care including admission/observation considered Consult Healthcare Provider Management of the patient was discussed with: [employer] Supervisor Dr. Escudero, cardiology Lab Data MDM Lab Attestation statement: I reviewed the patient's lab results. See MDM and course 09/02/25 09:01 09/02/25 09:01 Labs: Lab Results 09/02/25 09/02/25 Range/Units 09:01 10:12 WBC 3.5 L (4.8-10.8) X10*3/uL RBC 4.26 L (4.60-5.80) X10*6/uL Hgb 12.5 L (14.0-18.0) g/dl Hct 37.7 L (42.0-52.0) % MCV 88.5 (80.0-98.0) fL MCH 29.3 (27.0-33.0) pg MCHC 33.2 (31.0-36.0) g/dl RDW 14.6 (11.0-16.0) % Plt Count 87 L D (160-400) X10*3/uL MPV 11.6 (9.4-12.4) fL Immature Gran % (Auto) 0.3 (0.0-0.4) % Neut % (Auto) 84.8 H (45-73) % Lymph % (Auto) 7.6 L (20-40) % Nobles % (Auto) 7.3 (2-11) % Eos % (Auto) 0.0 (0-4) % Baso % (Auto) 0.0 (0-2) % Lymph # (Auto) 0.3 L (1.2-4.9) X10*3/uL Nobles # (Auto) 0.3 (0.1-1.2) X10*3/uL Eos # (Auto) 0.0 (0.0-0.4) X10*3/uL Baso # (Auto) 0.0 (0.0-0.2) X10*3/uL Abs Immat Gran (auto) 0.01 (0.00-0.03) X10*3/uL Absolute Neuts (auto) 3.0 (2.0-8.3) x10*3/uL Absolute Nucleated RBC 0.000 (0.0-0.012) X10*3/uL Nucleated RBC % (auto) 0.0 (0.0-0.2) /100WBC PT 11.1 (10.9-12.4) SEC INR 1.0 (0.9-1.1) APTT 27.0 (26.7-34.1) SEC Sodium 136 (135-145) mmol/L Potassium 4.3 (3.3-5.1) mmol/L Chloride 102 (96-108) mmol/L Carbon Dioxide 22 (22-29) mmol/L Anion Gap 16 (12-20) BUN 49 H (9-16) mg/dL Creatinine 2.54 H (0.5-1.4) mg/dL Estim Creat Clear Calc 29.5 Estimated GFR 25 Random Glucose 209 H (60-115) mg/dL Calcium 8.4 D (8.4-10.2) mg/dL Magnesium 1.9 (1.6-2.6) mg/dL Total Bilirubin 0.6 (0.0-1.0) mg/dL Direct Bilirubin 0.3 (0.0-0.5) mg/dL AST 86 H (5-37) U/L ALT 63 H (0-40) U/L Alkaline Phosphatase 67 (39-117) U/L Troponin I High Sens 157.2 H* (<3.5-35.0) ng/L Total Protein 6.7 (6.5-8.0) g/dL Albumin 3.9 (3.5-5.0) g/dL COVID-19 (EVAN) Negative (Negative) COVID-19 Clin Com See Note Influenza Type A (RADHA) Negative (Negative) Influenza Type B (RADHA) Negative (Negative) Influenza A & B Note See Note Independent Interpretation I performed an independent interpretation of an: EKG Interpretation: EKG performed at 8:31 a.m. : AFib with RVR at a ventricular rate of 110 beats per minute, QT QTC 370/500, evidence of left bundle-branch block - which has been seen on previous. EKG performed at 9:25AM : AFib at a ventricular rate of 89 beats per minute, QT QTC 392/476. Radiology Impression Discussion of test interpretation with radiology: I have reviewed the radiologist's reading. Radiologist Impression: FINDINGS: Pulmonary reticular pattern with confluent opacity right upper lung lobe. No pneumothorax. No pleural effusion. Cardiomediastinal silhouette size is normal. Calcified plaque thoracic aorta. Multilevel spondylosis, axial skeleton. XR/XR chest 1V IMPRESSION: Chronic interstitial lung disease with the questionable airspace disease versus neoplasm versus summation's of the right first rib. Electronically signed by: Jerry Segal MD 09/02/2025 09:58 AM EDT Dictated By: Jerry Currie MD FINDINGS: There is no acute ischemic change. Periventricular hypodensities are again noted. There is no intracranial hemorrhage. There is no mass-effect or midline shift. Basal cisterns and ventricles are within normal limits for age/cerebral volume. Orbits are symmetrical and unremarkable. Again noted is mucosal thickening in the right frontal sinus, and ethmoid air cells. There is decreased mucosal thickening in the right maxillary sinus and near resolution of left maxillary sinus mucosal thickening. There is no mucosal thickening in sphenoid sinuses. Mastoid air cells are clear. Chondrocalcinosis is noted in the cruciate ligament around dense. There are no bony abnormalities. CT/CT head/brain wo IV con IMPRESSION: No acute intracranial abnormality. Chronic periventricular white matter hypodensities is likely related to small vessel angiopathy, but is a nonspecific finding. Chronic sinus disease involving right frontal, ethmoid, and maxillary sinuses is slightly improved. Electronically signed by: Mekhi Lee MD 09/02/2025 10:14 AM EDT RP Dictated By: Mekhi Lee MD Critical Care Time Critical Care Time Critical Care Time: Yes Total Critical Care Time: 48 Attestation: I have personally provided critical care time exclusive of time spent on separately billable procedures. Time includes review of lab data, radiology results, discussion with consultants, and monitoring for potential decompensation. Intervention performed as documented. Discharge Plan Discharge Clinical Impression: New onset a-fib, WILIAN (acute kidney injury), Thrombocytopenia, Orthostatic hypotension Prescriptions: No Action Brilinta 90 mg tablet 90 mg PO BID Qty: 180 4RF spironolactone 25 mg tablet 25 mg PO DAILY Qty: 90 3RF Aspirin Low Dose 81 mg PO DAILY atorvastatin 80 mg tablet 80 mg PO DAILY metformin 500 mg tablet extended release 24 hr 500 mg PO BID amlodipine 10 mg tablet 10 mg PO DAILY valsartan-hydrochlorothiazide 320-12.5 mg tablet 1 tab PO DAILY fluticasone propionate 50 mcg/actuation spray,suspension 1 spray intranasal DAILY Print Language: Other
--- NOTE | 2025-09-02 08:20 | ECG_ITS ---
Test Reason : weakness Blood Pressure : */* mmHG Vent. Rate : 110 BPM Atrial Rate : * BPM P-R Int : * ms QRS Dur : 138 ms QT Int : 370 ms P-R-T Axes : * 2 122 degrees QTcB Int : 500 ms Atrial fibrillation with rapid ventricular response Left bundle branch block Abnormal ECG When compared with ECG of 15-Aug-2023 07:52, Atrial fibrillation has replaced Sinus rhythm Referred By: Gretchen Driscoll Electronically Signed By: RIO TERAN
[2025-09-02 09:04] LABS: MANUAL DIFF FLAG NO
[2025-09-02 09:12] LABS: Hematocrit 37.7 % (42.0-52.0); Hemoglobin 12.5 g/dl (14.0-18.0); Imm Gran Abs Auto 0.01 X10*3/uL (0.00-0.03); Imm Gran Pct Auto 0.3 % (0.0-0.4); Lymphocytes Absolute Auto 0.3 X10*3/uL (1.2-4.9); Mean Corpuscular HGB Conc 33.2 g/dl (31.0-36.0); Mean Corpuscular Hemoglobin 29.3 pg (27.0-33.0); Mean Corpuscular Volume 88.5 fL (80.0-98.0); NRBC Abs Auto 0.000 X10*3/uL (0.0-0.012); NRBC Pct Auto 0.0 /100WBC (0.0-0.2); Red Blood Count 4.26 X10*6/uL (4.60-5.80); White Blood Count 3.5 X10*3/uL (4.8-10.8)
[2025-09-02 09:24] LABS: Platelet Count 87 X10*3/uL (160-400)
[2025-09-02 09:25] LABS: Alanine Aminotransferase 63 U/L (0-40); Albumin Level 3.9 g/dL (3.5-5.0); Alkaline Phosphatase 67 U/L (39-117); Anion Gap 16 (12-20); Aspartate Amino Transferase 86 U/L (5-37); Blood Urea Nitrogen 49 mg/dL (9-16); Calcium 8.4 mg/dL (8.4-10.2); Carbon Dioxide 22 mmol/L (22-29); Chloride 102 mmol/L (96-108); Creatinine Clr Calc Pharmacy 29.5; Estimated Glomerular Filt Rate 25; Magnesium 1.9 mg/dL (1.6-2.6); Potassium 4.3 mmol/L (3.3-5.1); Sodium 136 mmol/L (135-145); Total Protein 6.7 g/dL (6.5-8.0)
[2025-09-02 09:27] LABS: COVID-19 Test Negative (Negative); IDNOW Serial# 55D5AD1C
[2025-09-02 09:28] LABS: IDNOW Serial# 58CA691E; Influenza B2 Negative (Negative)
--- NOTE | 2025-09-02 09:28 | ECG_ITS ---
Test Reason : rhythm change Blood Pressure : */* mmHG Vent. Rate : 89 BPM Atrial Rate : * BPM P-R Int : * ms QRS Dur : 140 ms QT Int : 392 ms P-R-T Axes : * -1 102 degrees QTcB Int : 476 ms Atrial fibrillation Left bundle branch block Abnormal ECG When compared with ECG of 02-Sep-2025 08:31, No significant change was found Referred By: Gretchen Driscoll Electronically Signed By: RIO TERAN
[2025-09-02 09:35] LABS: Troponin-I High Sensitivity 157.2 ng/L (<3.5-35.0)
--- OUTSIDE RECORDS SUMMARY | 2025-09-02 09:39 | XMS_ITS | Patient Health Record ---
Author Organization Kevin Mtz MD Address [address] [place], [place] [id number] Care Team Providers Care Software Project Engineer Name Role Phone Bibi Kevin Primary Care Provider [phone] Allergies No Known Allergies Results Component Value Reference Range Notes Liver Panel Reviewed date:01/27/2025 12:45:27 PM Interpretation: Performing Lab:[address] [phone] Notes/Report: Bilirubin Total 0.4 0.0-1.0 mg/dL Bilirubin Direct 0.2 0.0-0.5 mg/dL Aspartate Amino Transferase 29 5-37 U/L Alanine Aminotransferase 25 0-40 U/L Total Protein 7.3 6.5-8.0 g/dL Albumin Level 4.3 3.5-5.0 g/dL Alkaline Phosphatase 93 39-117 U/L Glucose Fasting Reviewed date:01/27/2025 12:43:38 PM Interpretation: Performing Lab:[address] [phone] Notes/Report: Glucose Fasting 111 60-99 mg/dL A fasting glucose from 100-125 mg/dl is considered impaired (pre-diabetes). Lipid Panel with Reflex Reviewed date:01/27/2025 12:43:25 PM Interpretation: Performing Lab:[facility], [address] [place] [phone] Notes/Report: Triglycerides 40 <150 mg/dL Desirable Triglyceride: [...] A1c Reviewed date:01/27/2025 12:42:22 PM Interpretation: Performing Lab:[facility], [address] [place] [phone] Notes/Report: Hemoglobin A1c % 5.9 <6.0 % [...] average glucose, using the formula of the Z5K-Dyvtjjo Average Glucose study (ADAG), Diabetes Care, Vol.31,#8, Jun. 2007 Complete Blood Count Auto Di ff Reviewed date:07/31/2025 12:27:22 PM Interpretation: Performing Lab:[facility], [address] [place] [phone] Notes/Report: White Blood Count 9.5 4.8-10.8 X10*3/uL [...] NRBC Abs Auto 0.000 0.0-0.012 X10*3/uL Comprehensive [place]. Panel Fa st Reviewed date:07/31/2025 04:25:14 PM Interpretation: Performing Lab:[facility], [address] [place] [phone] Notes/Report: Sodium 146 135-145 mmol/L Potassium 4.7 [...] Panel Reviewed date:07/31/2025 12:25:42 PM Interpretation: Performing Lab:[address] [phone] Notes/Report: Triglycerides 49 <150 mg/dL Desirable Triglyceride: [...] (Free>4and<10) Reviewed date:07/31/2025 12:28:34 PM Interpretation: Performing Lab:[address] [phone] Notes/Report: PSA,Total (Free>4and<10) 0.99 0.00-4.00 ng/mL A [...] Random Reviewed date:07/31/2025 12:41:22 PM Interpretation: Performing Lab:[address] [phone] Notes/Report: Creatinine Urine 75.73 Microalbumin Urine 16.0 Microalbum/Creatinine Ratio Ur 21.1 <30 ug/mg cr Albumin/Creatinine Ratio Reference Ranges: Normal: < 30 ug/mg creatinine Microalbuminuria: 30 - 300 ug/mg creatinine Clinical Albuminuria: > 300 ug/mg creatinine Hemoglobin A1c Reviewed date:07/31/2025 12:24:03 PM Interpretation: Performing Lab:[address] [phone] Notes/Report: Hemoglobin A1c % 6.1 <6.0 % [...] average glucose, using the formula of the K3N-Jdrtszu Average Glucose study (ADAG), Diabetes Care, Vol.31,#8, Jun. 2007 UA ClnCatch+Micro w/rflx Cul t Reviewed date:07/31/2025 04:27:22 PM Interpretation: Performing Lab:[address] [phone] Notes/Report: [id number] Urine, Clean Catch Color Urine Yellow Appearance Urine Clear PH 5.5 5.0-9.0 Glucose Urine UA Negative Negative mg/dL Urine Blood Negative Negative Specific [place] - Urine 1.020 1.005-1.025 Urine Protein Negative Neg-Trace mg/dL Urine Ketones Negative Negative mg/dL Nitrite Urine Negative Negative Leukocyte Esterase Urine Negative Negative RBC Urine 0-2 0-2 /HPF WBC Urine 0-5 0-5 /HPF Squamous Epithelial Cell Urine 0-2 0-2 /HPF Bacteria Urine None Seen None Seen Hyaline Casts Urine 0-2 0-2 /LPF Microalbumin, Random Reviewed date:02/03/2025 01:49:57 PM Interpretation: Performing Lab:[facility], [address] [place] [phone] Notes/Report: Creatinine Urine 112.03 Microalbumin Urine 28.0 Microalbum/Creatinine Ratio Ur 24.9 <30 ug/mg cr Albumin/Creatinine Ratio Reference Ranges: Normal: < 30 ug/mg creatinine Microalbuminuria: 30 - 300 ug/mg creatinine Clinical Albuminuria: > 300 ug/mg creatinine UA ClnCatch+Micro w/rflx Cul t Reviewed date:02/03/2025 01:54:17 PM Interpretation: Performing Lab:[facility], [address] [place] [phone] Notes/Report: Urine, Clean Catch Color Urine Yellow Appearance Urine Clear PH 5.0 5.0-9.0 Glucose Urine UA Negative Negative mg/dL Urine Blood Negative Negative Specific [place] - Urine 1.025 1.005-1.025 Urine Protein Negative Neg-Trace mg/dL Urine Ketones Trace Negative mg/dL Nitrite Urine Negative Negative Leukocyte Esterase Urine Negative Negative RBC Urine 0-2 0-2 /HPF WBC Urine 0-5 0-5 /HPF Squamous Epithelial Cell Urine 0-2 0-2 /HPF Bacteria Urine None Seen None Seen Hyaline Casts Urine 0-2 0-2 /LPF Occult Blood, Stool, Guaiac Reviewed date:08/07/2025 02:06:26 PM Interpretation:Negative Performing Lab: Notes/Report: Negative Occult Blood, Stool, Guaiac Neg Hold Gold Reviewed date:01/27/2025 12:40:34 PM Interpretation: Performing Lab:[facility], [address] [place] [phone] Notes/Report: Hold Gold See Note Specimen held untested for 24 hours; Call to request Chemistry testing. Complete Blood Count Auto Di ff (Not yet reviewed by provider) Interpretation: Performing Lab:[facility], [address] [place] [phone] Notes/Report: White Blood Count 3.5 4.8-10.8 X10*3/uL Red Blood Count 4.26 4.60-5.80 X10*6/uL Hemoglobin 12.5 14.0-18.0 g/dl Hematocrit 37.7 42.0-52.0 % Mean Corpuscular Volume 88.5 80.0-98.0 fL Mean Corpuscular Hemoglobin 29.3 27.0-33.0 pg Mean Corpuscular HGB Conc 33.2 31.0-36.0 g/dl Red Cell Distribution Width 14.6 11.0-16.0 % Platelet Count 87 160-400 X10*3/uL Mean Platelet Volume 11.6 9.4-12.4 fL Neutrophils Percent Auto 84.8 45-73 % Imm Gran Pct Auto 0.3 0.0-0.4 % Lymphocytes Percent Auto 7.6 20-40 % Monocytes Percent Auto 7.3 2-11 % Eosinophils Percent Auto 0.0 0-4 % Basophils Percent Auto 0.0 0-2 % NRBC Pct Auto 0.0 0.0-0.2 /100WBC Neutrophils Absolute Auto 3.0 2.0-8.3 x10*3/u L Imm Gran Abs Auto 0.01 0.00-0.03 X10*3/uL Lymphocytes Absolute Auto 0.3 1.2-4.9 X10*3/u L Monocytes Absolute Auto 0.3 0.1-1.2 X10*3/uL Eosinophils Absolute Auto 0.0 0.0-0.4 X10*3/u L Basophils Absolute Auto 0.0 0.0-0.2 X10*3/uL NRBC Abs Auto 0.000 0.0-0.012 X10*3/uL Liver Panel (Not yet reviewe d by provider) Interpretation: Performing Lab:[facility], [address] [place] [phone] Notes/Report: Bilirubin Total 0.6 0.0-1.0 mg/dL Bilirubin Direct 0.3 0.0-0.5 mg/dL Aspartate Amino Transferase 86 5-37 U/L Alanine Aminotransferase 63 0-40 U/L Total Protein 6.7 6.5-8.0 g/dL Albumin Level 3.9 3.5-5.0 g/dL Alkaline Phosphatase 67 39-117 U/L Basic Metabolic Panel (Not yet reviewed by provider) Interpretation: Performing Lab:[facility], [address] [place] [phone] Notes/Report: Sodium 136 135-145 mmol/L Potassium 4.3 3.3-5.1 mmol/L Chloride 102 96-108 mmol/L Carbon Dioxide 22 22-29 mmol/L Anion Gap 16 12-20 Blood Urea Nitrogen 49 9-16 mg/dL Creatinine 2.54 0.5-1.4 mg/dL Creatinine Clr Calc Pharmacy 29.5 eGFR (calculated from the MDRD study equation) and eCrCl (calculated from the Cockcroft-Gault equation) are based on different parameters and may not yield comparable results. If eCrCl result is absurd, please check patient's height/weight. Estimated Glomerular Filt Rate 25 Chronic Kidney Disease: Estimated GFR < 60 mL/min/1.73m2 Severe Kidney Disease: Estimated GFR < 15 mL/min/1.73m2 Glucose Random 209 60-115 mg/dL Calcium 8.4 8.4-10.2 mg/dL Magnesium (Not yet reviewed by provider) Interpretation: Performing Lab:[facility], [address] [place] [phone] Notes/Report: Magnesium 1.9 1.6-2.6 mg/dL Troponin-I High Sensitivity (Not yet reviewed by provider) Interpretation: Performing Lab:[facility], [address] [place] [phone] Notes/Report: Troponin-I High Sensitivity 157.2 <3.5-35.0 ng/ L Critical value for test(s):TROPONIN Results called to and read back by: SEBAS Person calling:CARI Date:09/02/25 Time:0934 The Reese high sensitivity Troponin-I results should be used in conjunction with other diagnostic information such as ECG, clinical observations and information, and patient symptoms to aid in the diagnosis of [place]. COVID-19 ID NOW (Reese) (No t yet reviewed by provider) Interpretation: Performing Lab:[facility], [address] [place] [phone] Notes/Report: IDNOW Serial# [id number] COVID-19 Test Negative Negative COVID-19 Note See Note Results are for the identification of SARS-CoV2 RNA. The SARS-CoV2 RNA is generally detectable in respiratory samples during the acute phase of infection. Positive results are indicative of the presence of SARS-CoV-2 RNA; clinical correlation with patient history and other diagnostic information is necessary to determine patient infection status. Positive results do not rule out bacterial infection or co-infection with other viruses. Testing facilities within the [facility] and its territories are required to report all positive results to the appropriate public health authorities. Negative results should be treated as presumptive and, if inconsistent with clinical signs and symptoms or necessary for patient management, should be tested with different authorized or cleared molecular tests. Negative results do not preclude SARS-CoV2 RNA infection and should not be used as the sole basis for patient management decisions. Negative results should be considered in the context of a patient's recent exposures, history and the presence of clinical signs and symptoms consistent with COVID-19. This test has been authorized by the FDA under an Emergency Use Authorization (EUA) for use by authorized laboratories. Testing performed on the Med[employer] NOW utilizing NAAT. Influenza A B2 ID NOW (Abbot t) (Not yet reviewed by provider) Interpretation: Performing Lab:[facility], [address] [place] [phone] Notes/Report: IDNOW Serial# [id number] Influenza A Negative Negative Influenza B2 Negative Negative Influenza A B2 Note See Note The [employer] ID NOW Influenza A B2 test is used for the qualitative detection of influenza A and B from patients with signs and symptoms of respiratory infection. Negative results do not preclude influenza virus infection and should not be used as the sole basis for diagnosis, treatment or other patient management decisions. There is a risk of false negative results due to the presence of variants in the viral targets of the assay, low levels of virus in the specimen and co-infection with Respiratory Syncytial Virus. Reason For Referral No Information Medications Medication SIG (Take, Route, Frequency, Duration) Notes Start Date End Date Status amLODIPine Besylate 10 MG TAKE 1 TABLET BY MOUTH ONCE DAILY Active metFORMIN HCl ER 500 MG TAKE 1 TABLET BY MOUTH TWICE DAILY WITH MEALS Active Spironolactone 25 MG 1 tablet Orally [...] a day for 5 day(s) 09/01/2025 Active Ventolin HFA 108 (90 Base) MCG/ACT 1 puff as needed Inhalation every 4 hrs for 90 days 01/20/2020 Not-Taking Tylenol 8 Hour 650 MG 2 tablets as neede d Orally every 8 hrs Not-Taking Atorvastatin Calcium 80 MG TAKE 1 TABLET BY MOUTH ONCE DAILY Active Immunizations Vaccine Route Administration Date Status Comme nts Fluarix Quadrivalent Unknown 09/26/2016 Administered Prevnar 13 IM Intramuscular 03/05/2018 Administered Fluarix Quadrivalent Unknown 07/17/[address] [facility] PPSV23 (Pnemovax) Unknown 06/12/2018 Administered pt wa s given the vaccine at [facility] in [place]. Influenza High Dose Unknown 09/25/[address] [facility] Influenza High Dose Unknown 07/07/[address] [facility] SARS-COV-2 Pfizer Unknown 01/23/2021 Administered SARS-COV-2 Pfizer Unknown 02/13/2021 Administered Influenza High Dose IM Intramuscular 07/16/2021 Administer ed SARS-COV-2 Pfizer Unknown 08/28/2021 Administered Influenza High Dose IM Intramuscular 08/09/2022 Administer ed Influenza High Dose IM Intramuscular 07/28/2023 Administer ed Influenza High Dose IM Intramuscular 07/15/2024 Administer ed Influenza High Dose IM Intramuscular 07/31/2025 Administer ed Social History Tobacco Use: Social History Observation [...] Problem Status W/U Status Risk Notes Problem Thyroid nodule (072362939) Thyroid nodule (E04.1) Active confirmed Problem Prostatism (85461560) Prostatism (N40.0) Active confirmed Problem Hypercalcemia (69230918) Hypercalcemia (E83.52) Active confirmed Problem 72139768 Essential hypertension (I10) Active confirmed Problem Solitary nodule of lung (855999802) Lung nodule (R91.1) Active confirmed Problem 31693683 Type 2 diabetes, controlled, 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 confirmed Problem 399795591 History of angioplasty (Z98.62) Active confirmed Problem 44363296 Hypercholesterem ia (E78.00) Active confirmed Problem 15733992 DAYRON (obstructive sleep apnea) (G47.33) Active confirmed Problem 17060940 Sinusitis chroni c, frontal (J32.1) Active confirmed Problem 08887855 Acute idiopathic gout involving toe, 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) Active confirmed Problem 22776922 Extrasystoles (I49.49) Active confirmed Problem 39770088 PVC's (premature ventricular contractions) (I49.3) Active confirmed Problem 473282604 Aortic stenosis, moderate (I35.0) Active confirmed Vital Signs Blood pressure diastolic 54 mm Hg 08/07/2025 Height 74 in 09/01/2025 weight at home is 196 BP not taken no temp Blood pressure systolic 130 mm Hg 08/07/2025 Weight 196 lbs 09/01/2025 weight at home is 196 BP not taken no temp BMI 25.16 kg/m2 09/01/2025 weight at home is 196 BP not taken no temp Encounters Encounter Location Date Provider Diagnosis Kevin Mtz MD [address] [place] [id number] 01/27/2025 Kevin Mtz Type 2 diabetes, controlled, 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 and Hypercholesteremia E78.00 Kevin Mtz MD [address] [place] [id number] 07/31/2025 Kevin Mtz Blood tests for rout ine general physical examination Z00.00 ; Encounter for administration of vaccine Z23 ; Essential hypertension I10 ; Type 2 diabetes, controlled, 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 and Hypercholesteremia E78.00 Kevin Mtz MD [address] [place] [address] Drive [address] [place] [id number] 09/01/2025 Kevin Mtz Influenza J11.1 Kevin Mtz MD [address] [place] [id number] 02/03/2025 Kevin Mtz Type 2 diabetes, controlled, 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 ; Hypercholesteremia E78.00 and Essential hypertension I10 eKvin Mtz MD [address] [place] [address] [id number] 08/07/2025 Kevin Mtz Annual physical exam Z00.00 ; Anemia D64.9 ; Nocturia R35.1 ; Prostatism N40.0 ; Elevated BUN R79.9 ; Type 2 diabetes, controlled, 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 ; Hypercholesteremia E78.00 ; Colon cancer screening Z12.11 ; Depression screening Z13.31 and Essential hypertension I10 Kevin Mtz MD [address] [place] [id number] 01/20/2025 Kevin Mtz Assessments Encounter Date Diagnosis (ICD Code) Assessment Notes Treatment Notes Treatment Clinical Notes Section Notes 01/27/2025 Type 2 diabetes, controlled, with neuropathy (ICD-10 - E11.40) 07/31/2025 Blood tests for routine general physical examination (ICD-10 - Z00.00) 07/31/2025 Encounter for administration of vaccine (ICD-10 - Z23) 09/01/2025 Influenza (ICD-10 - J11.1) patient verbalized understyanding of medication and directions for use 02/03/2025 Type 2 diabetes, controlled, with neuropathy (ICD-10 - E11.40) doing well on meds and exercise 08/07/2025 Annual physical exam (ICD-10 - Z00.00) labs reviewed and discussed with patient 08/07/2025 Anemia (ICD-10 - D64.9) stable, will continue to monitor, future labs ordered 01/27/2025 Hypercholesteremia (ICD-10 - E78.00) 07/31/2025 Essential hypertension (ICD-10 - I10) 02/03/2025 Hypercholesteremia (ICD-10 - E78.00) 08/07/2025 Nocturia (ICD-10 - R35.1) 07/31/2025 Type 2 diabetes, controlled, with neuropathy (ICD-10 - E11.40) 02/03/2025 Essential hypertension (ICD-10 - I10) stable, will cntiue current regiment 08/07/2025 Prostatism (ICD-10 - N40.0) patient verbalized understanding of medication and directions for use 07/31/2025 Hypercholesteremia (ICD-10 - E78.00) 08/07/2025 Elevated BUN (ICD-10 - R79.9) will continue to monitor 08/07/2025 Type 2 diabetes, controlled, with neuropathy (ICD-10 - E11.40) stable, will continue currenrt regiment 08/07/2025 Hypercholesteremia (ICD-10 - E78.00) stable, will continue current regiment 08/07/2025 Colon cancer screening (ICD-10 - Z12.11) 08/07/2025 Depression screening (ICD-10 - Z13.31) 08/07/2025 Essential hypertension (ICD-10 - I10) Plan Of Treatment Pending Test Test Name Order Date Electrocardiogram (EKG) 06/14/2019 Electrocardiogram (EKG) 06/14/2018 XR CHEST 2 VIEW PA & LAT 10/11/2019 US BIOPSY NEEDLE GUIDE 09/01/2023 US THYROID 08/22/2023 Complete Blood Count Auto Diff Liver Panel 09/02/2025 Basic Metabolic Panel 09/02/2025 Magnesium 09/02/2025 Troponin-I High Sensitivity 09/02/2025 US thyroid 08/15/2023 US thyroid 08/17/2023 COVID-19 ID NOW (Reese) 09/02/2025 Influenza A B2 ID NOW (Reese) 5 Next Appt Details Provider Name:Kevin ibarra, 09/11/2025 08:15:00 AM, [address] [place] [address], [address] [place] [address], [phone], Provider Name:Kevin ibarra, 02/10/2026 07:30:00 AM, [address] [place] [address], [address] [place] [address], [phone], Provider Name:Kevin ibarra, 02/17/2026 10:00:00 AM, [address], [address], [place], [place], [phone], Provider Name:Kevin Hernandez fred, 08/03/2026 07:30:00 AM, [address], [address], [place], [place], [phone], Provider Name:Kevin Hernandez ier, 08/10/2026 10:30:00 AM, [address], [address], [place], [place], [phone], Insurance Providers Payer Name Payer Address Payer Phone Subscriber Number Group Number Insured Name Patient Relationship to Insured Coverage Start Date Coverage End Date [employer] [facility] [address] [place] [phone] [id number] Nam King Self - patient is the insured MEDICARE [address] [place] [address] [id number] Nam King Self - patient is the insured Medical (General) History Medical History History ICD Code colonoscopy done 2010 and s normal; 12/13/18; Colonoscopy 08/28/[address] Valencia - normal Type 2 diabetes mellitus wit hout complication, without long-term current use of insulin E11.9 Type 2 diabetes mellitus wit hout complication, without long-term current use of insulin
--- OUTSIDE RECORDS SUMMARY | 2025-09-02 09:39 | XMS_ITS | Patient Health Record ---
Author Organization [facility] Address [address] [place] [address] Care Team Providers Care Storage Management Consultant Name Role Phone Kevin Mtz MD Primary Care Provider Thaddeus Gatica Jr Unavailable [phone] Reason For Referral No Information Medications Medication SIG (Take, Route, Frequency, Duration) Notes Start Date End Date Status Lisinopril-hydroCHLOROthiaz jennifer Active metFORMIN HCl ER Act [place] Atorvastatin Calcium Active amLODIPine Besylate Active MiraLax (colon prep) 8.3 ounce ((238) grams mixed with Gatorade or Crystal Light orally begin at 5:00 p.m. the day before the procedure; Duration: 1 day 08/03/2020 Active Tylenol PRN Active Immunizations Vaccine Route Administration Date Status Comme nts Influenza Unknown 07/08/2020 Administered Social History Tobacco Use: Social History Observation Description Date Details (start date - stop date) Former Smoker NA - NA Tobacco Use/Smoking Question Answer Notes Patient is a former smoker When did you stop smoking? 21 years old How long has it been since you last smoked? > 10 years Additional Findings: Tobacco Non-User Ex-cigaret te smoker Alcohol Screen Question Answer Notes Did you have a drink contain ing alcohol in the past year? Yes How often did you have a dri nk containing alcohol in the past year? 2 to 4 times a month (2 points) How many drinks did you have on a typical day when you were drinking in the past year? 1 or 2 drinks (0 point) How often did you have 6 or more drinks on one occasion in the past year? 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) use of oral hypoglycemic drugs (Z79.84) Active confirmed Plan Of Treatment Future Test Test Name Order Date COLONOSCOPY 08/03/2020 Insurance Providers Payer Name Payer Address Payer Phone Subscriber Number Group Number Insured Name Patient Relationship to Insured Coverage Start Date Coverage End Date [facility] [address] [place] [phone] [id number] CURTIS LCIFFORD Self - patient is the insured Medical (General) History Medical History History ICD Code type II diabetes hypertension carpal tunnel elevated cholesterol chronic kidney disease Surgical History Surgery Date(Month/Year) Lap Band 2004 varicose vein stripping
--- OUTSIDE RECORDS SUMMARY | 2025-09-02 09:39 | XMS_ITS | Encounter Summary ---
Author Organization [facility] Address [address] [place] [phone] Phone Care Team Providers Care Chicken And Fish Cleaner Name Role Phone Kevin Mtz MD Primary Care Provider Encounter Details Date Type Department Care Team (Late st Contact Info) Description 08/12/2022 Procedure Pass [address] [place] [address] Social History Tobacco Use Types Packs/Day Years Used Date Smoking Tobacco: Never Smokeless Tobacco: Never Sex and Gender Information Value Date Recorded Sex Assigned at Not on file Legal Sex Male 10:00 AM EST Gender Identity Not on file Sexual Orientation Not on file documented as of this encounter Plan of Treatment Not on file documented as of this encounter Visit Diagnoses Not on filedocumented in this encounter Care Teams Chicken And Fish Cleaner Relationship Specialty Start Date End Date Kevin Mtz MD [address] [place] [address] [place] [address] PCP - General Internal Medicine 12/31/20 documented as of this encounter Additional Source Comments The information contained in this document represents components of the legal health record. It is not the complete legal health record.[facility]
--- OUTSIDE RECORDS SUMMARY | 2025-09-02 09:40 | XMS_ITS | Encounter Summary ---
Author Organization [facility] Address [address] [place] [address] [place] [address] Phone Care Team Providers Care Lasting Floorworker Name Role Phone Kevin Mtz MD Primary Care Provider Encounter Details Date Type Department Care Team ([facility] st Contact Info) Description 04/25/2023 Ancillary Orders [facility] Medicine [address] [place] [id number] Alice Ahumada PA-C [address] [place] [address] Orthopedics & Sports Medicine, [facility] [place] [address] [email or web address] Social History Tobacco Use Types Packs/Day Years Used Date Smoking Tobacco: Never Smokeless Tobacco: Never Education Answer Date Recorded Are you interested in more education? Not on agustina e 03/03/2023 Are you concerned about learning? Not on file 03/03/2023 No 03/03/2023 No 03/03/2023 Digital Access Answer Date Recorded No 03/29/2023 No 03/29/2023 Reliable internet access at home? Not on file 03/29/2023 Device with a working camera? Not on file Sex and Gender Information Value Date Recorded Sex Assigned at Not on file Legal Sex Male 10:00 AM EST Gender Identity Not on file Sexual Orientation Not on file documented as of this encounter Plan of Treatment Not on file documented as of this encounter Visit Diagnoses Not on filedocumented in this encounter Care Teams Lasting Floorworker Relationship Specialty Start Date End Date Kevin Mtz MD [address] [place] [address] [place] [address] PCP - General Internal Medicine 12/31/20 documented as of this encounter Additional Source Comments The information contained in this document represents components of the legal health record. It is not the complete legal health record.[facility]
--- OUTSIDE RECORDS SUMMARY | 2025-09-02 09:41 | XMS_ITS | Encounter Summary ---
Author Organization [facility] Address [address] [place] [address] Phone Care Team Providers Care Bottom Bleacher Name Role Phone Kevin Mtz MD Primary Care Provider Encounter Details Date Type Department Care Team (Late st Contact Info) Description 04/25/2023 Ancillary Orders [address] [id number] Alice Ahumada PA-C [address] [place] [address] Orthopedics & Sports Medicine, [place] [address] [email or web address] Left knee pain, unspecified chronicity Social History Tobacco Use Types Packs/Day Years [...] on file documented as of this encounter Results * XR KNEE 4 OR MORE VIEWS (LEFT) (04/26/2023 1:54 PM EDT) Narrative SYSTEMGENERATED, DOCUMENTATION - 04/26/2023 1:55 PM EDT This image report has been auto-finalized and has not been read by a Radiologist. Interpretation has been included in the provider encounter note for this date of service. us Alice Ahumada PA-C IMG XR LOWER EXTREMITY F inal Result documented in this encounter Visit Diagnoses Diagnosis Left knee pain, unspecified chronicity Left knee pain, unspecified chronicity documented in this encounter Care Teams Bottom Bleacher Relationship Specialty Start Date End Date Kevin Mtz MD [address] [place] [address] [place] [address] PCP - General Internal Medicine 12/31/20 documented as of this encounter Additional Source Comments The information contained in this document represents components of the legal health record. It is not the complete legal health record.[facility]
--- OUTSIDE RECORDS SUMMARY | 2025-09-02 09:42 | XMS_ITS | Clinical Summary ---
Author Organization [facility] Address [address] [place] [phone] Phone Care Team Providers Care Reading Efficiency Course Director Name Role Phone Kevin Mtz MD Primary Care Provider Allergies No known active allergies Medications metFORMIN (GLUCOPHAGE) 500 MG tablet Take 500 mg by mouth 2 (two) times a day with meals. Active atorvastatin (LIPITOR) 20 MG tablet Take 20 mg by mouth daily. Active valsartan (DIOVAN) 160 MG tablet 12/16/2022 Active amLODIPine (NORVASC) 10 MG tablet Take 10 mg by mouth daily. Active ticagrelor (BRILINTA) 60 mg tablet 1 tablet Orally Twice a day Active Active Problems Problem Noted Date Diagnosed Date Status post total knee replacement, left 023 Primary localized osteoarthrosis of left lower l eg 08/12/2022 Social History Tobacco Use Types Packs/Day Years Used Date Smoking Tobacco: Never Smokeless Tobacco: Never Tobacco Cessation:Counseling Given: Not Answered Alcohol Use Standard Drinks/Week Comments Yes 0 (1 standard drink = 0.6 oz pur e alcohol) 2 drinks a month (beer) Education Answer Date Recorded Are you interested [...] Sign Reading Time Taken Comments Blood Pressure 177/80 05/10/2023 1:00 PM EDT Pulse 70 05/10/2023 1:00 PM EDT Temperature 36.2 C (97.2 F) 05/10/2023 1:00 PM EDT Respiratory Rate 15 05/10/2023 1:00 PM EDT Oxygen Saturation 100% 05/10/2023 1:00 PM EDT Inhaled Oxygen Concentration - - Weight 101.2 kg (223 lb) 05/10/2023 6:25 AM EDT Height 190.5 cm (6' 3 ) 05/10/2023 6:25 AM EDT Body Mass Index 27.87 05/10/2023 6:25 AM EDT Plan of Treatment Health Maintenance Due Date Last Done Comments LIPID PANEL 1950 DEPRESSION SCREENING 1961 HEPATITIS C SCREENING 1967 ZOSTER VACCINES (1 of 2) 1999 RSV VACCINE (1 - 1-dose 75+ series) 02/03/2024 CREATININE LEVEL 03/24/2024 03/24/2023 POTASSIUM LEVEL 03/24/2024 03/24/2023 INFLUENZA VACCINE (#1) 2025 , 07/16/2021, 07/11/2020, Additional history exists COVID-19 VACCINE (2024- season) 2025 07/22/2022, 03/03/2022, 08/28/2021, Additional history exists Adult Td,Tdap Booster 06/03/2029 06/03/2019, 018 PNEUMOCOCCAL VACCINES (50+ years) Completed 06/12/2018, 03/05/2018 SMOKING STATUS SCREENING (Once After 26 Yrs) Completed 07/21/2023 HEPATITIS A VACCINES Aged Out No long er eligible based on patient's age to complete this topic HIB VACCINES Aged Out No longer eligi ble based on patient's age to complete this topic MENINGOCOCCAL VACCINES (ACWY) Aged Out No longer eligible based on patient's age to complete this topic MENINGOCOCCAL VACCINES (B) Aged Out N o longer eligible based on patient's age to complete this topic Medical Devices Implanted Type Area Outside Sales Associate Device Identifier Shelf Expiration Date Model / Serial / Lot Bone Cement Antibiotic Refobacin - [id number] Implanted:Qty: 1 on 05/10/2023 by Alex Moralez MD at [facility] Left: Knee [employer] 06/05/2025 [id number] / / [id number] Bone Cement Antibiotic Refobacin - [id number] Implanted:Qty: 1 on 05/10/2023 by Alex Moralez MD at [facility] Left: Knee [employer] 06/05/2025 [id number] / / [id number] Knee Implant Sz 12 Component Fem[address] Persona Ps [address] Cemented Std Lt - [id number] Implanted:Qty: 1 on 05/10/2023 by Alex Moralez MD at [facility] Left: Knee [employer] 04/23/2032 [id number] / / [id number] Knee Patella 10.0x41mm Persona All Polyethylene Cemented Conventional - [id number] Implanted:Qty: 1 on 05/10/2023 by Alex Moralez MD at [facility] Left: Knee [employer] 01/27/2027 [id number] / / [id number] Knee Implant 5.0deg Component Tibial Persona Titanium Stemmed Cemented Lt Size H - [id number] Implanted:Qty: 1 on 05/10/2023 by Alex Moralez MD at [facility] Left: Knee [employer] 09/06/2032 [id number] / / [id number] Knee Insert 11mm L 10 12 Component Surface Persona Ps Polyethylene Fixed Conventional Lt Fem Tib Gh - [id number] Implanted:Qty: 1 on 05/10/2023 by Alex Moralez MD at [facility] Left: Knee [employer] 09/12/2027 [id number] / / [id number] Procedures Procedure Name Priority Date/Time Associated Diagnosis Comments BASIC METABOLIC PANEL Routine 03/24/2023 9:12 AM EDT Primary localized osteoarthrosis of right lower leg from Last 3 Months or Most Recently Relevant to Health Maintenance Results * (ABNORMAL) Basic metabolic panel (03/24/2023 9:12 AM EDT) SODIUM 141 133 - 146 mmol/L [facility] CHLORIDE 102 96 - 108 mmol/L [facility] POTASSIUM 4.5 3.3 - 5.1 mmol/L [facility] CO2 28 21 - 35 mmol/L [facility] BUN 17 6 - 19 mg/dL [facility] CREATININE 0.90 0.5 - 1.5 mg/dL [facility] GLUCOSE 136(H) 70 - 99 mg/dL [facility] CALCIUM 10.2 8.4 - 10.3 mg/dL [facility] EGFR 90 >59 mL/min/1.7 3m2 [facility] Comment:Estimated glomerular filtration rate calculated using the CKD-EPI refit equation. ANION GAP 16 10 - 20 mmol/L [facility] Blood 03/24/2023 9:12 AM EDT 03/24/2023 9:19 AM EDT us Alex Moralez MD LAB BLOOD ORDERABLES Final Re sult [facility] [address] [place] [address] from Last 3 Months or Most Recently Relevant to Health Maintenance Insurance MEDICARE HMO REPLACEMENT MEDICARE HMO REPLACEMENT MEDICARE HMO REPLACEMENT MEDICARE HMO REPLACEMENT MEDICARE HMO REPLACEMENT [facility] [place] MEDIC[place] [facility]MO REPLACEMENT [facility] [place] MEDICARE HMO REPLACEMENT [facility] [place] MEDICARE HMO REPLACEMENT [facility] [place] MEDIC[employer] HMO REPLACEMENT Care Teams Reading Efficiency Course Director Relationship Specialty Start Date End Date Kevin Mtz MD [address] [place] [address] Dr KITCHEN [address] [place] [id number] PCP - General Internal Medicine 12/31/20 Additional Source Comments The information contained in this document represents components of the legal health record. It is not the complete legal health record.[facility]
--- OUTSIDE RECORDS SUMMARY | 2025-09-02 09:42 | XMS_ITS | Clinical Summary ---
Author Organization [facility] Address [address] [place] [address] Care Team Providers Care Pca Name Role Phone Unavailable Primary Care Provider [...] Health Maintenance Due Date Last Done Comments Advance Care Planning 1950 Hepatitis C Virus Screening 1950 DTaP/Tdap/Td Vaccines (1 - Tdap) 02/03/1968 Zoster (Shingles) Vaccine (1 of 2) 1999 Pneumococcal Vaccines 50+ (2 of 2 - PCV) 11/09/2008 11/09/2007 RSV Vaccine 50 years and old er and Patients (1 - 1-dose 75+ series) 02/03/2024 COVID-19 Vaccine (2023-2 5 season) 2025 Hepatitis B Vaccines Aged Out No long er eligible based on patient's age to complete this topic
--- OUTSIDE RECORDS SUMMARY | 2025-09-02 09:43 | XMS_ITS | Encounter Summary ---
Author Organization [facility] Address [address] [facility] [address] [place] [phone] Phone Care Team Providers Care Diesel Mechanic Helper Name Role Phone Kevin Mtz MD Primary Care Provider Encounter Details Date Type Department Care Team (Late st Contact Info) Description 05/10/2023 Procedure Pass OR Admitting Dept - Virtual Department [address] [place] [address] Social History Tobacco Use Types Packs/Day Years Used Date Smoking Tobacco: Never Smokeless Tobacco: Never Alcohol Use Standard Drinks/Week Comments Yes 0 [...] on filedocumented in this encounter Care Teams Diesel Mechanic Helper Relationship Specialty Start Date End Date Kevin Mtz MD [address] [place] [address] [place] [address] PCP - General Internal Medicine 12/31/20 documented as of this encounter Additional Source Comments The information contained in this document represents components of the legal health record. It is not the complete legal health record.[facility]
[2025-09-02] MEDS: Lactated Ringers 1,000 ML 999 ML IV (10:21)
[2025-09-02 10:24] LABS: INTERNATIONAL NORM RATIO 1.0 (0.9-1.1); Prothrombin Time 11.1 SEC (10.9-12.4)
[2025-09-02 10:27] LABS: Partial Thromboplastin Time 27.0 SEC (26.7-34.1)
--- NOTE | 2025-09-02 11:46 | PM.IMHP ---
History of Present Illness Date of Service: 09/02/25 Chief Complaint: Weakness, syncope 75-year-old man with a history of hypertension, coronary artery disease presenting to the ER after an episode of syncope and weakness. He reported on Monday he started feeling unwell, weak reported ataxia. Then on Monday started getting muscle weakness. Then this morning he got up and suddenly fell down and reported that he did lose consciousness. His heard him and they called his primary care provider who told him to come to the ER to be evaluated. Patient denied any chest pain, shortness breath, palpitations, nausea, vomiting, diarrhea, fever, recent illness, sick contacts, recent travel. 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 In the ER, he was found to be in new onset atrial fibrillation with rapid ventricular response however his heart rate has been below 100s. Initially his blood pressure was low with systolic blood pressure in the 70s. He was given 1 L of IV fluid which did help bring up his blood pressure systolically to the 90s. We will continue slow IV fluids for now to keep blood pressure up. Chest x-ray negative for any acute abnormality, head CT negative for any trauma, cervical spine CT showing no acute fracture. Patient was given 2 L of IV fluids while in the ER. He will be admitted for further management and treatment of new onset atrial fibrillation and syncope. Review of Systems Review of Systems: Denies any recent fever chills or decrease in appetite respiratory denies any shortness of breath or cough cardiovascular denied chest pain gastrointestinal denies any dysphagia abdominal pain nausea vomiting or diarrhea genitourinary denies any dysuria frequency or hematuria musculoskeletal denies any joint pain or swelling neuropsych denies any weakness or seizures all other systems reviewed are negative [facility] Medical History (Updated 09/02/25 @ 12:46 by Aria Estevez NP) Trace mitral valve regurgitation Essential hypertension Type 2 diabetes mellitus with unspecified complications Bone spur of ankle Arthritis Back pain Sleep apnea with use of continuous positive airway pressure (CPAP) Hyperlipidemia Hypertension Family History Father No problems noted. Mother No problems noted. Surgical History History of total left knee replacement H/O varicose vein ligation Hx of laparoscopic gastric banding History of colonoscopy Social History Are you a primary personal care service provider to a significant other at home: No Do you presently have visiting nurse or other home services: No Alcohol intake: current Alcohol intake frequency: holidays/special occasions only Patient Tobacco Use Status: Former Tobacco user Tobacco use type: Cigarette Years Smoked: 5 +/- Second Hand Smoke Exposure: No Advance Directives: No Advance Directives Information Provided: Yes Meds Allergies Allergy/AdvReac Type Severity Reaction Status Date / Time No Known Allergies (No Known Allergy Verified 09/02/25 08:17 Allergies*) Home Medications ?Medication ?Instructions ?Recorded ?Confirmed ?Last Taken ?Type amlodipine 10 mg tablet 10 mg PO DAILY 06/17/21 09/02/25 09/02/25 History atorvastatin 80 mg tablet 80 mg PO BEDTIME 06/20/22 09/02/25 09/02/25 History valsartan 320 1 tab PO DAILY 07/04/23 09/02/25 09/02/25 History mg-hydrochlorothiazide 12.5 mg tablet metformin 500 mg tablet,extended 500 mg PO BID 05/07/24 09/02/25 09/02/25 History release 24 hr fluticasone propionate 50 1 spray intranasal DAILY 08/08/24 09/02/25 09/02/25 History mcg/actuation nasal spray,suspension aspirin 81 mg tablet 81 mg PO DAILY 09/02/25 09/02/25 09/02/25 History Physical Exam Vital Signs and Narrative: Vital Signs: Last Vital Signs Temp 97.5 F 09/02/25 08:36 Pulse 81 09/02/25 11:33 Resp 16 09/02/25 11:18 BP 107/60 09/02/25 11:33 Pulse Ox 100 09/02/25 11:18 O2 Del Method Room Air 09/02/25 11:18 BMI result Body Mass Index 24.0 Appearing in no acute distress head is normocephalic atraumatic eyes pupils are PERRLA sclera is anicteric mouth throat mucous membranes are intact and moist neck is supple no lymphadenopathy, no JVD noted lung sounds are clear to auscultation heart irregular positive bowel sounds, abdomen is soft, nontender neuro patient is alert x3, no focal deficits Results Labs 09/02/25 09:01 09/02/25 09:01 Labs: Laboratory Results - last 24 hr 09/02/25 09/02/25 09:01 10:12 MCV 88.5 MCH 29.3 MCHC 33.2 RDW 14.6 Plt Count 87 L D MPV 11.6 Immature Gran % (Auto) 0.3 Neut % (Auto) 84.8 H Lymph % (Auto) 7.6 L [place] % (Auto) 7.3 Eos % (Auto) 0.0 Baso % (Auto) 0.0 Lymph # (Auto) 0.3 L [place] # (Auto) 0.3 Eos # (Auto) 0.0 Baso # (Auto) 0.0 Abs Immat Gran (auto) 0.01 Absolute Neuts (auto) 3.0 Absolute Nucleated RBC 0.000 Nucleated RBC % (auto) 0.0 PT 11.1 INR 1.0 APTT 27.0 Anion Gap 16 Estim Creat Clear Calc 29.5 Estimated GFR 25 Random Glucose 209 H Calcium 8.4 D Magnesium 1.9 Total Bilirubin 0.6 Direct Bilirubin 0.3 AST 86 H ALT 63 H Alkaline Phosphatase 67 Troponin I High Sens 157.2 H* Total Protein 6.7 Albumin 3.9 COVID-19 (EVAN) Negative COVID-19 Clin Com See Note Influenza Type A (RADHA) Negative Influenza Type B (RADHA) Negative Influenza A & B Note See Note Imaging Radiologist's Impressions: Impressions Cervical Spine CT 09/02/25 09:45 IMPRESSION: Multilevel degenerative disease and facet osteoarthritis. CPPD deposition. No acute fracture. Electronically signed by: Mekhi Lee MD 09/02/2025 10:[address] 09/02/25 09:45 IMPRESSION: No acute intracranial abnormality. Chronic periventricular white matter hypodensities is likely related to small vessel angiopathy, but is a nonspecific finding. Chronic sinus disease involving right frontal, ethmoid, and maxillary sinuses is slightly improved. Electronically signed by: Mekhi Lee MD 09/02/2025 10:14 AM Virtual Paper Chest X-Ray 09/02/25 09:46 IMPRESSION: Chronic interstitial lung disease with the questionable airspace disease versus neoplasm versus summation's of the right first rib. Electronically signed by: Jerry Segal MD 09/02/2025 09:58 AM EDT RP Assessment and Plan (1) Essential hypertension: Status: Acute Plan 75-year-old man admitted to the ER with new onset atrial fibrillation and syncope New onset atrial fibrillation Heart rate below 100 in the ER We will hold off on antiarrhythmic medication at this time Cardiology consultation to discuss need for anticoagulation Monitor on telemetry Hypotension Likely secondary to dehydration and poor p.o. intake over the weekend Continue IV fluids Monitor blood pressure closely Pancytopenia No obvious bleeding Possibly related to viral illness Follow up CBC Transaminitis AST 86/ALT 63 Has been feeling unwell the last few days Possibly related to viral illness Trend LFTs WILIAN Likely secondary to dehydration from poor p.o. intake and hypotension Consult Nephrology IV fluid hydration Hypertension Hold antihypertensives due to hypotension Syncope Likely from orthostatic hypotension No ischemic changes noted on cash surrender calculator Elevated troponin no complaints of chest pain Troponin 157.2 Recheck pending Diabetes mellitus type 2 Sliding scale, ADA diet Coronary artery disease Hold aspirin for now due to pancytopenia Continue statin DVT prophylaxis with heparin Full code Quality Stroke Does the patient have a stroke diagnosis?: No VTE Prior VTE?: No VTE Risk Level:: Medical - moderate - high VTE Device Contraindication: Treatment Not Indicated VTE Drug Contraindication: N/A - Med Ordered
--- NOTE | 2025-09-02 13:16 | PHA.MEDREC ---
Addendum entered by Rita Rangel [facility] 09/02/25 13:32: REVIEWED BY PHARMACIST Original Note: Pharmacy Consult ? Medication Reconciliation Pharmacy has completed the medication reconciliation. Spoke with pt and he confirmed his medications. Pt stopped the Brilinta in May 2025 when he had a stint put in and he takes a bunch of vitamins/supplements OTC but states he doesn't need to take them while here and didnt want to name them off for me.
[2025-09-02] MEDS: Lactated Ringers 1,000 ML 100 ML IVCONT (13:42)
[2025-09-02 13:58] LABS: Troponin-I High Sensitivity 119.0 ng/L (<3.5-35.0)
[2025-09-02 14:23] LABS: Appearance Urine Cloudy; Glucose Urine UA Negative (Negative); PH 5.0 (5.0-9.0); Specific Gravity - Urine 1.025 (1.005-1.025); UMIC TRIGGER UACC YES
--- NOTE | 2025-09-02 15:13 | HO.NURTONUR ---
Pt came in today after syncopal episode at home. Pt states he ahs had SOB and dizziness off and on for while and this morning it got worse. Pt noted to be in rapid afib on arrival but has since maintained a rate less than 90 bpm but remains in afib. Pt voided mod amount very dark urine and has received IVF 1000ml bolus and is now receiving 100ml/hr as ordered. Pt dizzy when orthos were done so they were not completed and laying to sitting made pt symptomatic. Provider aware. BP has remained soft and fluxuates between low 100's and 87-90 syatolic. Pt advised not to get up alone. Pt denies CP or any N/V SOB at this time.
--- NOTE | 2025-09-02 15:18 | PC.NURSE ---
Provider questioned about Heparin prior to dose and stated Ok to give despite platelets.
[2025-09-02 20:22] LABS: Glucose, Whole Blood 158 mg/dL (60-115)
[2025-09-03] VITALS (8 sets, daily range): BP systolic 105–148; BP diastolic 58–87; PULSE 80–107; RESP 16–18; TEMP 36.2–38; O2SAT 93–99
[2025-09-03] MEDS: Lactated Ringers 1,000 ML 100 ML IVCONT ×2 (01:23→10:30)
--- NOTE | 2025-09-03 07:00 | CA_ITS ---
Transthoracic Echocardiogram Patient (Last, First, Middle): Nam King J Gender: M Date of : 1950 Age: 75 Procedure Date: 09/03/2025 Procedure Type: Transthoracic Echocardiogram [place] [facility] [place]: 190.5 cm Weight: 87.09 kg BSA: 2.16 m2 Heart Rate: bpm BP: 90 / 50 mmHg Governor Assembler: SB Referring MD: Gretchen ROBLERO Symptoms: new onset afib Study Quality: Adequate ECG Rhythm: Atrial Fibrillation Conclusions: - The left ventricular systolic function is mildly decreased. The calculated ejection fraction is 42% by biplane method. - There is mild to moderate aortic valve stenosis. Findings Left Ventricle Normal left ventricular cavity size. There is normal left ventricular wall thickness. The left ventricular systolic function is mildly decreased. The calculated ejection fraction is 42% by biplane method. Diastolic function is indeterminate on the basis of available data. Possible basal inferior / inferolateral hypokinesis. Right Ventricle Normal right ventricular cavity size. There is mildly decreased right ventricular systolic function. Atria Both atria are normal in size. Aortic Valve There is mild calcification of the aortic valve. There is mild to moderate aortic valve stenosis. There is no aortic valve regurgitation. Mitral Valve The mitral valve appears normal. There is no mitral valve regurgitation. There is no mitral valve stenosis. Pulmonic Valve The pulmonic valve is likely normal. Tricuspid Valve Normal tricuspid valve structure. There is trace tricuspid valve regurgitation. There is no evidence of pulmonary hypertension. Great Vessels The aorta was not well visualized. The asc aorta and aortic arch are normal in size. Venous The inferior vena cava is normal in size and collapses greater than 50% with inspiration. Pericardium/Pleural There is a small loculated pericardial effusion overlying the right ventricle. Prior Study Comparison Changes noted compared to prior study dated: 01/09/2025. Decrease in LVEF. Measurements 2D Linear Measurements IVSd: 1.00 0.6-0.9/0.6-1.0 cm LVIDd: 5.18 3.9-5.3/4.2-5.9 cm LVIDd Index: 2.40 2.4-3.2/2.2-3.1 cm/m2 LVIDs: 3.61 2.0-3.6 cm LVPWd: 0.74 0.7-1.1 cm LA Diam: 4.30 2.7-3.8/3.0-4.0 cm LAIDs Index: 1.99 1.5-2.3 cm/m2 LV Mass: 199.48 67-162/88-224 g LV Mass Index: 92.35 43-95/49-115 g/m2 LVOT Diam: 2.10 3.0+(-)1.3 cm 2D Systolic Function EF 4C: 39.50 >55% EF 2C: 45.70 >55% EF BiP: 41.80 >55% Mitral Valve MV Pk E: 1.09 MV Decel Time: 165.00 E'Medial: 5.84 E/E' Med: 18.70 Aortic Valve AoV Pk Clive: 2.17 AoV Mn Clive: 1.56 AoV VTI: 0.34 AoV Pk Grad: 19.00 Aov Mn Grad: 11.00 JENNIFER Cont.VTI: 1.28 LVOT LVOT Pk Clive: 0.76 LVOT Mn Clive: 0.57 LVOT VTI: 0.13 LVOT Pk Grad: 2.00 LVOT Mn Grad: 1.00 LVOT Diam: 2.10 LVOT Area: 3.46 Diastolic Function MV Pk E: 1.09 E'Medial: 5.84 E/E' Med: 18.70 Right Ventricle TAPSE (mm): 13.20 TVS' Clive: 10.10 Tricuspid Valve RA Press: 3.00 Great Vessels Aorta Sinus of Valsalva: 3.00 2.0-3.5 cm Ao Asc: 2.90 2.1-3.4 cm Ao Arch: 3.40 Updated in Other Vendor System with Status of Final Oral Escudero MD electronically signed on 09/03/2025 10:37:49 AM with status of Final
[2025-09-03 07:12] LABS: Hematocrit 33.6 % (42.0-52.0); Hemoglobin 11.1 g/dl (14.0-18.0); Mean Corpuscular HGB Conc 33.0 g/dl (31.0-36.0); Mean Corpuscular Hemoglobin 29.1 pg (27.0-33.0); Mean Corpuscular Volume 88.2 fL (80.0-98.0); NRBC Abs Auto 0.000 X10*3/uL (0.0-0.012); NRBC Pct Auto 0.0 /100WBC (0.0-0.2); Red Blood Count 3.81 X10*6/uL (4.60-5.80)
[2025-09-03 07:18] LABS: Platelet Count 73 X10*3/uL (160-400); White Blood Count 2.5 X10*3/uL (4.8-10.8)
[2025-09-03 07:30] LABS: Alanine Aminotransferase 51 U/L (0-40); Albumin Level 3.5 g/dL (3.5-5.0); Alkaline Phosphatase 57 U/L (39-117); Aspartate Amino Transferase 71 U/L (5-37); Blood Urea Nitrogen 44 mg/dL (9-16); Calcium 8.5 mg/dL (8.4-10.2); Creatinine Clr Calc Pharmacy 46.6; Estimated Glomerular Filt Rate 42; Total Protein 6.0 g/dL (6.5-8.0)
[2025-09-03 07:31] LABS: Glucose, Whole Blood 129 mg/dL (60-115)
[2025-09-03 07:37] LABS: Anion Gap 13 (12-20); Carbon Dioxide 27 mmol/L (22-29); Chloride 102 mmol/L (96-108); Potassium 3.8 mmol/L (3.3-5.1); Sodium 138 mmol/L (135-145)
--- NOTE | 2025-09-03 09:16 | P.CONCA_ITS ---
History of Present Illness History of Present Illness Date of Service: 09/03/25 Chief complaint: new onset atrial fibrillation Narrative: This is a cardiology consultation regarding atrial fibrillation as well as syncope. Last seen in February this year. Many comorbidities includin diabetes, hypertension, dyslipidemia. He underwent REGI to RCA in 2023. It seems that he has been losing weight intentionally over the last several months. This weekend, he states that he has had poor appetite and hence not been eating at all. Disease feeling as well as syncopal and he was seen in the ER and found to be hypotensive and he was also found to be in atrial fibrillation. However, from the cardiac standpoint he is not having any symptoms like angina or shortness of breath or palpitations. Any case, he was admitted for further care. Currently, he states he feels okay. Review of Systems 2 Review of Systems: Yes all other systems are reviewed and are negative Constitutional: Constitutional: Reports as per HPI and Reports no additional constitutional complaints Eyes: Eyes: Reports as per HPI and Denies no additional eye complaints ENT: Denies system reviewed and no additional complaints, except as documented and Reports as per HPI Cardiovascular: Cardiovascular: Reports as per HPI, Reports no additional cardiovascular complaints, Denies acrocyanosis, Denies cool extremities, Denies chest pain, Denies leg edema, Reports lightheadedness, Denies palpitations and Denies dyspnea Respiratory: Respiratory: Reports as per HPI, Denies no additional respiratory complaints and Denies dyspnea Gastrointestinal: Gastrointestinal: Reports as per HPI and Denies no additional gastrointestinal complaints Genitourinary: Genitourinary: Reports no additional male genitourinary complaints and Reports as per HPI Musculoskeletal: Musculoskeletal: Reports no additional musculoskeletal complaints and Reports as per HPI Integumentary/Breasts: Skin/Breast: Reports system reviewed and no additional complaints, except as docu Neurologic: Reports system reviewed and no additional complaints, except as documented and Reports as per HPI Psychiatric: Psychiatric: Reports no additional psychiatric complaints and Reports as per HPI Endocrine: Endocrine: Reports no additional endocrine complaints, Reports as per HPI and Denies palpitations Hematologic/Lymphatic: Hematologic/Lymphatic: Reports no additional hematologic/lymphatic complaints and Reports as per HPI Allergic/Immunologic: Allergic/Immunologic: Reports no additional allergic/immunologic complaints and Reports as per HPI [facility] Past Medical History Medical History (Updated 09/03/25 @ 09:21 by Oral Escudero MD) Trace mitral valve regurgitation Essential hypertension Type 2 diabetes mellitus with unspecified complications Bone spur of ankle Arthritis Back pain Sleep apnea with use of continuous positive airway pressure (CPAP) Hyperlipidemia Hypertension Family History Family History Father No problems noted. Mother No problems noted. Surgical History Surgical History History of total left knee replacement H/O varicose vein ligation Hx of laparoscopic gastric banding History of colonoscopy Social History Social History Household Members: Spouse Housing: House Are you a primary rn acute care to a significant other at home: No Do you presently have visiting nurse or other home services: No Alcohol intake: current Alcohol intake frequency: holidays/special occasions only Patient Tobacco Use Status: Former Tobacco user Tobacco use type: Cigarette Years Smoked: 5 +/- Second Hand Smoke Exposure: No service: No Meds Allergies Allergy/AdvReac Type Severity Reaction Status Date / Time No Known Allergies (No Known Allergy Verified 09/02/25 08:17 Allergies*) Active Medications: Current Medications Acetaminophen (Acetaminophen 325 Mg Tablet) 650 mg PO Q6H PRN PRN Reason: Pain, Mild 1-3,fever,headache Calcium Carbonate (Calcium Carbonate 750 Mg Tab.Chew) 750 mg PO Q4H PRN PRN Reason: Heartburn Fluticasone Propionate (Fluticasone Propionate Nasal 16 Gm [place]) 1 spray NOSTRIL-B DAILY [facility] Heparin Sodium (Porcine) (Heparin Sodium,Porcine 5,000 Unit/Ml Vial) 5,000 unit SUBCUT Q12H [facility] Last Admin: 09/03/25 01:23 Dose: 5,000 unit Lactated Ringer's (Lr) 1,000 mls @ 100 mls/hr IVCONT .Q10H [facility] Last Admin: 09/03/25 01:23 Dose: 100 mls/hr Magnesium Hydroxide (Milk Of Magnesia 30 Ml Oral.Susp) 30 ml PO DAILY PRN PRN Reason: Constipation Melatonin (Melatonin 3 Mg Tablet) 6 mg PO BEDTIME PRN PRN Reason: Insomnia Ondansetron HCl (Ondansetron Hcl 4 Mg/2 Ml Vial) 4 mg IVPUSH Q8H PRN PRN Reason: Nausea and Vomiting Sodium Chloride (0.9 % Sodium Chloride Flush 3 Ml Syringe) 3 ml IVFLUSH QSHIFT [facility] Last Admin: 09/02/25 23:19 Dose: Not Given Home Medications ?Medication ?Instructions ?Recorded ?Confirmed ?Last Taken ?Type amlodipine 10 mg tablet 10 mg PO DAILY 06/17/2108/0709/02/25 History atorvastatin 80 mg tablet 80 mg PO BEDTIME 06/20/2209/02/25 History valsartan 320 1 tab PO DAILY 07/04/2308/0709/02/25 History mg-hydrochlorothiazide 12.5 mg tablet metformin 500 mg tablet,extended 500 mg PO BID 4 09/02/25 09/02/25 History release 24 hr fluticasone propionate 50 1 spray intranasal DAILY 01/2709/02/25 09/02/25 History mcg/actuation nasal spray,suspension aspirin 81 mg tablet 81 mg PO DAILY 09/02/2508/0709/02/25 History Physical Exam 2 Vital Signs: Vital Signs: Last Vital Signs Temp 99.9 F 09/03/25 08:00 Pulse 97 09/03/25 08:00 Resp 16 09/03/25 08:00 BP 138/75 09/03/25 08:00 Pulse Ox 97 09/03/25 08:00 O2 Del Method Room Air 09/03/25 08:00 BMI result Body Mass Index 24.0 Const: General: comfortable and no acute distress O rientation/consciousness: patient oriented x3 HEENT: Other: Unremarkable Head: Yes normal to inspection Neck: Neck: Yes normal visual inspection Chest: Chest palpation & inspection: normal inspection of the chest Resp: Auscultation: clear to auscultation bilaterally Cardio: Palpation: normal PMI Heart sounds: S1 normal heart sound present, S2 normal heart sound present, no gallops, no murmurs and no rubs GI: Palpation (GI): Soft to palpation Back/Spine/Pelvis: Other: unremarkable Skin: General skin exam: no rashes or lesions noted Neuro: General: patient oriented x3 Extrem: General: Yes normal to inspection Psych: Mental Status: mental status grossly normal Objective Labs and Meds 09/03/25 06:40 09/03/25 06:40 Lab results: Laboratory Results - last 24 hr 09/02/25 09/02/25 09/02/25 09:01 10:12 13:20 WBC RBC Hgb Hct MCV MCH MCHC RDW Plt Count 87 L D MPV 11.6 Absolute Nucleated RBC Nucleated RBC % (auto) PT 11.1 INR 1.0 APTT 27.0 Sodium 136 Potassium 4.3 Chloride 102 Carbon Dioxide 22 Anion Gap 16 BUN 49 H Creatinine 2.54 H Estim Creat Clear Calc 29.5 Estimated GFR 25 POC Glucose Random Glucose 209 H Calcium 8.4 D Magnesium 1.9 Total Bilirubin 0.6 Direct Bilirubin 0.3 AST 86 H ALT 63 H Alkaline Phosphatase 67 Troponin I High Sens 157.2 H* 119.0 H* Total Protein 6.7 Albumin 3.9 Urine Color Urine Appearance Urine pH Ur Specific [place] Urine Protein Urine Glucose (UA) Urine Ketones Urine Blood Urine Nitrite Ur Leukocyte Esterase Urine RBC Urine WBC Ur Squamous Epith Cells Urine Bacteria Hyaline Casts Granular Casts COVID-19 (EVAN) Negative COVID-19 Clin Com See Note Influenza Type A (RADHA) Negative Influenza Type B (RADHA) Negative Influenza A & B Note See Note 09/02/25 09/02/25 09/03/25 14:06 20:12 06:40 WBC 2.5 L RBC 3.81 L Hgb 11.1 L Hct 33.6 L MCV 88.2 MCH 29.1 MCHC 33.0 RDW 14.6 Plt Count 73 L MPV 12.3 Absolute Nucleated RBC 0.000 Nucleated RBC % (auto) 0.0 PT INR APTT Sodium 138 Potassium 3.8 Chloride 102 Carbon Dioxide 27 Anion Gap 13 BUN 44 H Creatinine 1.61 H Estim Creat Clear Calc 46.6 Estimated GFR 42 POC Glucose 158 H Random Glucose 126 H Calcium 8.5 Magnesium Total Bilirubin 0.7 Direct Bilirubin AST ALT Alkaline Phosphatase Troponin I High Sens Total Protein Albumin Urine Color Dark Yellow Urine Appearance Cloudy Urine pH 5.0 Ur Specific [place] 1.025 Urine Protein 100 (2+) H Urine Glucose (UA) Negative Urine Ketones Negative Urine Blood Small (1+) H Urine Nitrite Negative Ur Leukocyte Esterase Trace H Urine RBC 3-5 H Urine WBC 0-5 Ur Squamous Epith Cells 6-10 Urine Bacteria 1+ Hyaline Casts 11-20 Granular Casts Present COVID-19 (EVAN) COVID-19 Clin Com Influenza Type A (RADHA) Influenza Type B (RADHA) Influenza A & B Note 09/03/25 09/03/25 09/03/25 06:40 06:40 06:40 WBC RBC Hgb Hct MCV MCH MCHC RDW Plt Count MPV Absolute Nucleated RBC Nucleated RBC % (auto) PT INR APTT Sodium Potassium Chloride Carbon Dioxide Anion Gap BUN Creatinine Estim Creat Clear Calc Estimated GFR POC Glucose Random Glucose Calcium Magnesium Total Bilirubin Cancelled Direct Bilirubin 0.3 Cancelled AST 71 H Cancelled ALT 51 H Alkaline Phosphatase Troponin I High Sens Total Protein Albumin Urine Color Urine Appearance Urine pH Ur Specific [place] Urine Protein Urine Glucose (UA) Urine Ketones Urine Blood Urine Nitrite Ur Leukocyte Esterase Urine RBC Urine WBC Ur Squamous Epith Cells Urine Bacteria Hyaline Casts Granular Casts COVID-19 (EVAN) COVID-19 Clin Com Influenza Type A (RADHA) Influenza Type B (RADHA) Influenza A & B Note 09/03/25 09/03/25 09/03/25 06:40 06:40 06:40 WBC RBC Hgb Hct MCV MCH MCHC RDW Plt Count MPV Absolute Nucleated RBC Nucleated RBC % (auto) PT INR APTT Sodium Potassium Chloride Carbon Dioxide Anion Gap BUN Creatinine Estim Creat Clear Calc Estimated GFR POC Glucose Random Glucose Calcium Magnesium Total Bilirubin Direct Bilirubin AST ALT Cancelled Alkaline Phosphatase 57 Cancelled Troponin I High Sens Total Protein 6.0 L Cancelled Albumin 3.5 Urine Color Urine Appearance Urine pH Ur Specific [place] Urine Protein Urine Glucose (UA) Urine Ketones Urine Blood Urine Nitrite Ur Leukocyte Esterase Urine RBC Urine WBC Ur Squamous Epith Cells Urine Bacteria Hyaline Casts Granular Casts COVID-19 (EVAN) COVID-19 Clin Com Influenza Type A (RADHA) Influenza Type B (RADHA) Influenza A & B Note 09/03/25 09/03/25 06:40 07:09 WBC RBC Hgb Hct MCV MCH MCHC RDW Plt Count MPV Absolute Nucleated RBC Nucleated RBC % (auto) PT INR APTT Sodium Potassium Chloride Carbon Dioxide Anion Gap BUN Creatinine Estim Creat Clear Calc Estimated GFR POC Glucose 129 H Random Glucose Calcium Magnesium Total Bilirubin Direct Bilirubin AST ALT Alkaline Phosphatase Troponin I High Sens Total Protein Albumin Cancelled Urine Color Urine Appearance Urine pH Ur Specific [place] Urine Protein Urine Glucose (UA) Urine Ketones Urine Blood Urine Nitrite Ur Leukocyte Esterase Urine RBC Urine WBC Ur Squamous Epith Cells Urine Bacteria Hyaline Casts Granular Casts COVID-19 (EVAN) COVID-19 Clin Com Influenza Type A (RADHA) Influenza Type B (RADHA) Influenza A & B Note ECG Interpretation: EKG with atrial fibrillation with rapid rate at 110/Min with left bundle-branch block pattern. Imaging Radiologist's impression: Impressions Cervical Spine CT 09/02/25 09:45 IMPRESSION: Multilevel degenerative disease and facet osteoarthritis. CPPD deposition. No acute fracture. Electronically signed by: Mekhi Lee MD 09/02/2025 10:17 AM EDT RP Head CT 09/02/25 09:45 IMPRESSION: No acute intracranial abnormality. Chronic periventricular white matter hypodensities is likely related to small vessel angiopathy, but is a nonspecific finding. Chronic sinus disease involving right frontal, ethmoid, and maxillary sinuses is slightly improved. Electronically signed by: Mekhi Lee MD 09/02/2025 10:14 AM EDT RP Chest X-Ray 09/02/25 09:46 IMPRESSION: Chronic interstitial lung disease with the questionable airspace disease versus neoplasm versus summation's of the right first rib. Electronically signed by: Jerry Segal MD 09/02/2025 09:58 AM EDT RP Assessment and Plan (1) Orthostatic hypotension: Status: Acute Per ER records, blood pressure as low as in the 70s. Currently, much improved. Hold off home blood pressure meds and monitor. It seems he already received IV fluids. (2) New onset a-fib: Status: Acute May need a small dose of beta-walter to control rate. Ideally, needs anticoagulation but he is also having pancytopenia and low platelets. Need to ask Hematology to evaluate and then cautiously start Eliquis. (3) WILIAN (acute kidney injury): Status: Acute Baseline creatinine is 1.1 but was as much as 2.5 and now improved to 1.6. Likely all related to weight loss, dehydration and should get better with IV fluids. (4) Elevated troponin: Status: Acute Troponin levels are 157 and 119. Clinically, this is not ACS. Suspect some combination of demand as well as related to WILIAN. No specific management for this. Continue aspirin. Procedures Date of Service Date of Service: 09/03/25
--- NOTE | 2025-09-03 09:17 | MHC.CM.PN ---
CM met with Patient at bedside and addressed IMM with him, providing Patient with the original and a copy has been placed on the chart. Patient lives on a house with his and he required no services nor DME [employer]ING [employer]SEM[employer]. Home/self care is Patient's goal and CM has initiated and will follow for dc planning. PCP is Dr. Kevin Mtz and will transport at dc.
[2025-09-03 10:01] LABS: Chlamydia pneumoniae PCR Not Detected (Not Detect.); Coronavirus 229E PCR Not Detected (Not Detect.); Coronavirus HKU1 PCR Not Detected (Not Detect.); Coronavirus NL63 PCR Not Detected (Not Detect.); Coronavirus OC43 PCR Not Detected (Not Detect.); RSV PCR Not Detected (Not Detect.); Rhino/Enterovirus PCR Not Detected (Not Detect.)
[2025-09-03 10:25] LABS: Influenza A H1 PCR Not Detected (Not Detect.); Influenza A H1-2009 PCR Not Detected (Not Detect.); Influenza A H3 PCR Not Detected (Not Detect.); SARS-CoV-2 PCR Not Detected (Not Detect.)
[2025-09-03 11:23] LABS: Glucose, Whole Blood 141 mg/dL (60-115)
--- NOTE | 2025-09-03 14:04 | PM.CNNEP ---
History of Present Illness Reason for Consult Consult date: 09/03/25 Reason for consult: WILIAN Chief Complaint Chief complaint: new onset atrial fibrillation History of Present Illness Narrative: 75-year-old man with a history of hypertension( sees Dr Olivo ), coronary artery disease presented to the ER after an episode of syncope and weakness. Since Monday he started feeling unwell, weak reported ataxia. Then on Monday started getting muscle weakness. Then yesterday morning he got up and suddenly fell down and reported that he did lose consciousness. His heard him and they called his primary care provider who told him to come to the ER to be evaluated. Patient denied any chest pain, shortness breath, palpitations, nausea, vomiting, diarrhea, fever, recent illness, sick contacts, recent travel. 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 In the ER, he was found to be in new onset atrial fibrillation with rapid ventricular response however his heart rate has been below 100s. Initially his blood pressure was low with systolic blood pressure in the 70s. He was taking ARB/Diuretics. He was given 1 L of IV fluid which did help bring up his blood pressure systolically to the 90s. Chest x-ray negative for any acute abnormality, head CT negative for any trauma, cervical spine CT showing no acute fracture. He was found to have WILIAN. He was be admitted for further management and treatment of new onset atrial fibrillation, WILIAN and syncope.Nephrology has been consulted to assist in his clinical care during his current hospital stay Review of Systems Review of Systems Yes all other systems are reviewed and are negative PMFSH Past Medical History Medical History (Updated 09/03/25 @ 09:21 by Oral Escudero MD) Trace mitral valve regurgitation Essential hypertension Type 2 diabetes mellitus with unspecified complications Bone spur of ankle Arthritis Back pain Sleep apnea with use of continuous positive airway pressure (CPAP) Hyperlipidemia Hypertension Family History Family History Father No problems noted. Mother No problems noted. Surgical History Surgical History History of total left knee replacement H/O varicose vein ligation Hx of laparoscopic gastric banding History of colonoscopy Social History Social History Household Members: Spouse Housing: House Are you a primary medicare specialist to a significant other at home: No Do you presently have visiting nurse or other home services: No Alcohol intake: current Alcohol intake frequency: holidays/special occasions only Patient Tobacco Use Status: Former Tobacco user Tobacco use type: Cigarette Years Smoked: 5 +/- Second Hand Smoke Exposure: No service: No Meds Allergies Allergy/AdvReac Type Severity Reaction Status Date / Time No Known Allergies (No Known Allergy Verified 09/02/25 08:17 Allergies*) Active Medications: Current Medications Acetaminophen (Acetaminophen 325 Mg Tablet) 650 mg PO Q6H PRN PRN Reason: Pain, Mild 1-3,fever,headache Calcium Carbonate (Calcium Carbonate 750 Mg Tab.Chew) 750 mg PO Q4H PRN PRN Reason: Heartburn Fluticasone Propionate (Fluticasone Propionate Nasal 16 Gm [place]) 1 spray NOSTRIL-B DAILY [facility] Last Admin: 09/03/25 10:34 Dose: Not Given Heparin Sodium (Porcine) (Heparin Sodium,Porcine 5,000 Unit/Ml Vial) 5,000 unit SUBCUT Q12H [facility] Last Admin: 09/03/25 13:41 Dose: 5,000 unit Magnesium Hydroxide (Milk Of Magnesia 30 Ml Oral.Susp) 30 ml PO DAILY PRN PRN Reason: Constipation Melatonin (Melatonin 3 Mg Tablet) 6 mg PO BEDTIME PRN PRN Reason: Insomnia Ondansetron HCl (Ondansetron Hcl 4 Mg/2 Ml Vial) 4 mg IVPUSH Q8H PRN PRN Reason: Nausea and Vomiting Sodium Chloride (0.9 % Sodium Chloride Flush 3 Ml Syringe) 3 ml IVFLUSH QSHIFT [facility] Last Admin: 09/03/25 09:59 Dose: Not Given Home Medications ?Medication ?Instructions ?Recorded ?Confirmed ?Last Taken ?Type amlodipine 10 mg tablet 10 mg PO DAILY 06/17/21 09/02/25 09/02/25 History atorvastatin 80 mg tablet 80 mg PO BEDTIME 06/20/22 09/02/25 09/02/25 History valsartan 320 1 tab PO DAILY 07/04/23 09/02/25 09/02/25 History mg-hydrochlorothiazide 12.5 mg tablet metformin 500 mg tablet,extended 500 mg PO BID 05/07/24 09/02/25 09/02/25 History release 24 hr fluticasone propionate 50 1 spray intranasal DAILY 08/08/24 09/02/25 09/02/25 History mcg/actuation nasal spray,suspension aspirin 81 mg tablet 81 mg PO DAILY 09/02/25 09/02/25 09/02/25 History Physical Exam Vital Signs: Last Vital Signs Temp 99.7 F 09/03/25 12:00 Pulse 107 H 09/03/25 12:00 Resp 18 09/03/25 12:00 BP 148/87 H 09/03/25 12:00 Pulse Ox 99 09/03/25 12:00 O2 Del Method Room Air 09/03/25 12:00 BMI result Body Mass Index 24.0 Const General: comfortable and no acute distress Orientation/consciousness: patient oriented x3 HEENT Head: Yes normocephalic Mouth: Normal oral and palatal mucosa present Eyes EOM: EOMs intact bilaterally Neck Neck: Yes supple Resp Auscultation: clear to auscultation bilaterally Cardio Jugular venous distension: no JVD Rate: regular rate GI Palpation (GI): Soft to palpation Auscultation: normal bowel sounds General: Yes no CVA tenderness Back/Spine/Pelvis Back: no CVA tenderness Skin General skin exam: no rashes or lesions noted Neuro General: patient oriented x3 and moves all extremities Extrem General: Yes no pedal edema Results Lab Results 09/03/25 06:40 09/03/25 06:40 Lab results: Chemistry 09/02/25 09/03/25 09:01 06:40 Sodium 136 138 Potassium 4.3 3.8 Carbon Dioxide 22 27 BUN 49 H 44 H Creatinine 2.54 H 1.61 H Calcium 8.4 D 8.5 Hematology 09/02/25 09/03/25 09:01 06:40 WBC 3.5 L 2.5 L Hgb 12.5 L 11.1 L Plt Count 87 L D 73 L Urinalysis 09/02/25 14:06 Urine Color Dark Yellow Urine Appearance Cloudy Urine pH 5.0 Ur Specific [place] 1.025 Urine Protein 100 (2+) H Urine Glucose (UA) Negative Urine Ketones Negative Urine Blood Small (1+) H Urine Nitrite Negative Ur Leukocyte Esterase Trace H Urine RBC 3-5 H Urine WBC 0-5 Ur Squamous Epith Cells 6-10 Hyaline Casts 11-20 Assessment and Plan (1) WILIAN (acute kidney injury): Status: Acute Plan WILIAN due to tubular injury. Had symptomatic low BP( new onset AFib) Was taking Diuretics/ARB( on hold) UO good; Serum creatinine improving Continue to hold ARB/Diuretics for now Shall arrange F/U in office with me in 2 weeks Procedures Date of Service Date of Service: 09/03/25
--- NOTE | 2025-09-03 14:45 | HO.PM.IMPN ---
Subjective Subjective Date of Service: 09/03/25 Interval History: No acute issues overnight. Acceptable rate control Review of Systems Denies chest pain Denies shortness of breath Denies nausea vomiting diarrhea Denies fever chills Physical Exam Vital Signs: Vital Signs: Last Vital Signs Temp 99.7 F 09/03/25 12:00 Pulse 107 H 09/03/25 12:00 Resp 18 09/03/25 12:00 BP 148/87 H 09/03/25 12:00 Pulse Ox 99 09/03/25 12:00 O2 Del Method Room Air 09/03/25 12:00 BMI result Body Mass Index 24.0 Const: Other: Awake alert.. No acute distress Resp: Other: Clear to auscultation bilaterally no rales rhonchi or wheezes Cardio: Other: No S4; positive S1-S2; no S3 2/6 systolic murmur best heard at right sternal border 2nd intercostal space GI: Other: Soft nontender nondistended normoactive bowel sounds Extrem: Other: No edema bilaterally Objective Data Active Medications Acetaminophen (Acetaminophen 325 Mg Tablet) 650 mg PO Q6H PRN PRN Reason: Pain, Mild 1-3,fever,headache Amlodipine Besylate (Amlodipine Besylate 10 Mg Tablet) 10 mg PO DAILY [facility]; Protocol Atorvastatin Calcium (Atorvastatin Calcium 80 Mg Tablet) 80 mg PO BEDTIME [facility] Calcium Carbonate (Calcium Carbonate 750 Mg Tab.Chew) 750 mg PO Q4H PRN PRN Reason: Heartburn Fluticasone Propionate (Fluticasone Propionate Nasal 16 Gm [place]) 1 spray NOSTRIL-B DAILY [facility] Last Admin: 09/03/25 10:34 Dose: Not Given Documented By: ROBYN Non-Admin Reason: called pharmacist Heparin Sodium (Porcine) (Heparin Sodium,Porcine 5,000 Unit/Ml Vial) 5,000 unit SUBCUT Q12H [facility] Last Admin: 09/03/25 13:41 Dose: 5,000 unit Documented By: ROBYN Magnesium Hydroxide (Milk Of Magnesia 30 Ml Oral.Susp) 30 ml PO DAILY PRN PRN Reason: Constipation Melatonin (Melatonin 3 Mg Tablet) 6 mg PO BEDTIME PRN PRN Reason: Insomnia Metoprolol Succinate (Metoprolol Succinate Er 25 Mg Tab.Er.24h) 25 mg PO DAILY [facility]; Protocol Ondansetron HCl (Ondansetron Hcl 4 Mg/2 Ml Vial) 4 mg IVPUSH Q8H PRN PRN Reason: Nausea and Vomiting Sodium Chloride (0.9 % Sodium Chloride Flush 3 Ml Syringe) 3 ml IVFLUSH QSHIFT [facility] Last Admin: 09/03/25 09:59 Dose: Not Given Documented By: ROBYN Non-Admin Reason: IV Running Valsartan (Valsartan 320 Mg Tablet) 320 mg PO DAILY [facility]; Protocol Labs 09/03/25 06:40 09/03/25 06:40 Labs: Laboratory Results - last 24 hr 09/02/25 09/02/25 09/03/25 17:17 20:12 06:40 MCV 88.2 MCH 29.1 MCHC 33.0 RDW 14.6 Plt Count 73 L MPV 12.3 Absolute Nucleated RBC 0.000 Nucleated RBC % (auto) 0.0 Anion Gap 13 Estim Creat Clear Calc 46.6 Estimated GFR 42 POC Glucose 158 H Random Glucose 126 H Calcium 8.5 Total Bilirubin 0.7 Direct Bilirubin AST ALT Alkaline Phosphatase Total Protein Albumin Respiratory Panel Ortiz See Note Adenovirus (Rapid PCR) Not Detected B.pert (TEM-PCR) Not Detected B.parapertussis DNA PCR Not Detected C. pneumoniae DNA (PCR) Not Detected Coronavirus OC43 (PCR) Not Detected Coronavirus HKU1 (PCR) Not Detected Coronavirus 229E (PCR) Not Detected Coronavirus NL63 (PCR) Not Detected Human Metapneumovir PCR Not Detected Influenza A (RT-PCR) Not Detected Influenza A (H1) PCR Not Detected Influ A (H1/09) PCR Not Detected Influenza A (H3) PCR Not Detected Influenza B (RT-PCR) Not Detected M. pneumoniae (PCR) Not Detected Parainfluenza 1 (PCR) Not Detected Parainfluenza 2 (PCR) Not Detected Parainfluenza 3 (PCR) Not Detected Parainfluenza 4 (PCR) Not Detected RSV (PCR) Not Detected Entero/Rhino (PCR) Not Detected SARS-CoV-2 RNA (RT-PCR) Not Detected 09/03/25 09/03/25 09/03/25 06:40 06:40 06:40 MCV MCH MCHC RDW Plt Count MPV Absolute Nucleated RBC Nucleated RBC % (auto) Anion Gap Estim Creat Clear Calc Estimated GFR POC Glucose Random Glucose Calcium Total Bilirubin Cancelled Direct Bilirubin 0.3 Cancelled AST 71 H Cancelled ALT 51 H Alkaline Phosphatase Total Protein Albumin Respiratory Panel Ortiz Adenovirus (Rapid PCR) B.pert (TEM-PCR) B.parapertussis DNA PCR C. pneumoniae DNA (PCR) Coronavirus OC43 (PCR) Coronavirus HKU1 (PCR) Coronavirus 229E (PCR) Coronavirus NL63 (PCR) Human Metapneumovir PCR Influenza A (RT-PCR) Influenza A (H1) PCR Influ A (H1/) PCR Influenza A (H3) PCR Influenza B (RT-PCR) M. pneumoniae (PCR) Parainfluenza 1 (PCR) Parainfluenza 2 (PCR) Parainfluenza 3 (PCR) Parainfluenza 4 (PCR) RSV (PCR) Entero/Rhino (PCR) SARS-CoV-2 RNA (RT-PCR) 09/03/25 09/03/25 09/03/25 06:40 06:40 06:40 MCV MCH MCHC RDW Plt Count MPV Absolute Nucleated RBC Nucleated RBC % (auto) Anion Gap Estim Creat Clear Calc Estimated GFR POC Glucose Random Glucose Calcium Total Bilirubin Direct Bilirubin AST ALT Cancelled Alkaline Phosphatase 57 Cancelled Total Protein 6.0 L Cancelled Albumin 3.5 Respiratory Panel Ortiz Adenovirus (Rapid PCR) B.pert (TEM-PCR) B.parapertussis DNA PCR C. pneumoniae DNA (PCR) Coronavirus OC43 (PCR) Coronavirus HKU1 (PCR) Coronavirus 229E (PCR) Coronavirus NL63 (PCR) Human Metapneumovir PCR Influenza A (RT-PCR) Influenza A (H1) PCR Influ A (H1/) PCR Influenza A (H3) PCR Influenza B (RT-PCR) M. pneumoniae (PCR) Parainfluenza 1 (PCR) Parainfluenza 2 (PCR) Parainfluenza 3 (PCR) Parainfluenza 4 (PCR) RSV (PCR) Entero/Rhino (PCR) SARS-CoV-2 RNA (RT-PCR) 09/03/25 09/03/25 09/03/25 06:40 07:09 11:19 MCV MCH MCHC RDW Plt Count MPV Absolute Nucleated RBC Nucleated RBC % (auto) Anion Gap Estim Creat Clear Calc Estimated GFR POC Glucose 129 H 141 H Random Glucose Calcium Total Bilirubin Direct Bilirubin AST ALT Alkaline Phosphatase Total Protein Albumin Cancelled Respiratory Panel Ortiz Adenovirus (Rapid PCR) B.pert (TEM-PCR) B.parapertussis DNA PCR C. pneumoniae DNA (PCR) Coronavirus OC43 (PCR) Coronavirus HKU1 (PCR) Coronavirus 229E (PCR) Coronavirus NL63 (PCR) Human Metapneumovir PCR Influenza A (RT-PCR) Influenza A (H1) PCR Influ A (H1/09) PCR Influenza A (H3) PCR Influenza B (RT-PCR) M. pneumoniae (PCR) Parainfluenza 1 (PCR) Parainfluenza 2 (PCR) Parainfluenza 3 (PCR) Parainfluenza 4 (PCR) RSV (PCR) Entero/Rhino (PCR) SARS-CoV-2 RNA (RT-PCR) Assessment and Plan (1) New onset a-fib: Status: Acute (2) Type 2 diabetes mellitus with unspecified complications: Status: Acute (3) WILIAN (acute kidney injury): Status: Acute Plan 75-year-old man admitted to the ER with new onset atrial fibrillation and syncope 1.New onset atrial fibrillation -we will add low-dose metoprolol for rate control -we will need Eliquis; given pancytopenia we will consult Hematology prior to administration -continue telemetry 2.Hypotension (backdrop of hypertension) -resolved -DC IV fluids -add back therapies as clinically indicated 3.Pancytopenia -consult hematology -follow up CBC 3.WILIAN -responding well to volume repletion -avoid nephrotoxic agents -follow renals/divalent 4.Diabetes mellitus type 2 -acceptable control on current therapies -lispro correctional scale -adjust as indicated DVT prophylaxis with heparin Full code Quality Stroke Does the patient have a stroke diagnosis?: No VTE Prior VTE?: No VTE Risk Level:: Medical - moderate - high VTE Device Contraindication: Treatment Not Indicated VTE Drug Contraindication: N/A - Med Ordered
[2025-09-03] MEDS: Metoprolol Succinate ER 25 MG TAB.ER.24H PO (15:04)
[2025-09-03] MEDS: 0.9 % Sodium Chloride Flush 3 ML SYRINGE IVFLUSH (15:05)
[2025-09-03 16:06] LABS: Glucose, Whole Blood 130 mg/dL (60-115)
--- NOTE | 2025-09-03 16:13 | P.CNHO_ITS ---
Subjective - Subjective Chief complaint: Consult for: Thrombocytopenia. AFib. Patient: new to practice Consult date: 09/03/25 Requesting Physician: Dr. Slater. Primary Care Provider: Kevin Mtz MD Family Provider: Kevin Mtz MD Medical Summary: DIAGNOSIS: THROMBOCYTOPENIA. NEW ONSET AFIB. Cloth Printing Inspector Utilized?: No - Latvian Speaking HPI - Consult Narrative Reason for consult: Consult for: Need for anticoagulation for AFib. With thrombocytopenia. Narrative: Nam King is a 75 year old man, presented to the ER on 09/02, after an episode of syncope and weakness. He reported on Monday he started feeling unwell, weak reported ataxia. Then on Monday started getting muscle weakness. Then in the morning he got up and suddenly fell down and reported that he did lose consciousness. His heard him and they called his primary care provider who told him to come to the ER to be evaluated. Patient denied any chest pain, shortness breath, palpitations, nausea, vomiting, diarrhea, fever, recent illness, sick contacts, recent travel. He reported a history of coronary artery disease and had stent placement last year, otherwise he is very active. In the ER, he was found to be in new onset atrial fibrillation with rapid ventricular response however his heart rate has been below 100s. Initially his blood pressure was low with systolic blood pressure in the 70s. He was given 1 L of IV fluid which did help bring up his blood pressure systolically to the 90s. We will continue slow IV fluids for now to keep blood pressure up. Chest x-ray negative for any acute abnormality. Head CT negative for any trauma. Cervical spine CT showing no acute fracture. Patient was given 2 L of IV fluids while in the ER. PMH: history of hypertension, coronary artery disease. Medical History:) Trace mitral valve regurgitation Essential hypertension Type 2 diabetes mellitus with unspecified complications Bone spur of ankle Arthritis Back pain Sleep apnea with use of continuous positive airway pressure (CPAP) Hyperlipidemia Hypertension Surgical History: History of total left knee replacement H/O varicose vein ligation Hx of laparoscopic gastric banding History of colonoscopy. Family History: Father No problems noted. Mother No problems noted. 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 Are you a primary child care worker to a significant other at home: No Do you presently have visiting nurse or other home services: No Alcohol intake: current Alcohol intake frequency: holidays/special occasions only Patient Tobacco Use Status: Former Tobacco user Review of Systems: Denies any recent fever chills or decrease in appetite respiratory denies any shortness of breath or cough cardiovascular denied chest pain gastrointestinal denies any dysphagia abdominal pain nausea vomiting or diarrhea genitourinary denies any dysuria frequency or hematuria musculoskeletal denies any joint pain or swelling neuropsych denies any weakness or seizures all other systems reviewed are negative Review of Systems - Constitutional Reports system reviewed and no additional complaints, except as documented - Eyes Reports system reviewed and no additional complaints, except as documented - ENT Reports system reviewed and no additional complaints, except as documented - Cardiovascular Reports system reviewed and no additional complaints, except as documented - Respiratory Reports no additional respiratory complaints - Gastrointestinal Reports system reviewed and no additional complaints, except as documented - Genitourinary Genitourinary: Reports no additional male genitourinary complaints - Musculoskeletal Reports system reviewed and no additional complaints, except as documented - Integumentary/Breasts Skin/Breast: Reports no additional skin complaints - Neurologic Reports system reviewed and no additional complaints, except as documented, Reports as per HPI - Psychiatric Reports system reviewed and no additional complaints, except as documented - Endocrine Reports no additional endocrine complaints - Hematologic/Lymphatic Reports system reviewed and no additional complaints, except as documented - Allergic/Immunologic Reports system reviewed and no additional complaints, except as documented Oncology Screenings - ECOG Performance Status ECOG Performance Status: 1 COUNT INCLUDES THE [facility] Medical History: Medical History (Last Updated 09/02/25 @ 12:46 by Aria Estevez NP) Arthritis Back pain Bone spur of ankle Essential hypertension Hyperlipidemia Hypertension Sleep apnea with use of continuous positive airway pressure (CPAP) Trace mitral valve regurgitation Type 2 diabetes mellitus with unspecified complications Functional capacity: uses cane/walker Patient : No Family History: Family History (Last Reviewed 02/28/25 @ 11:27 by Ivy Washington NP-C) Father No problems noted. Mother No problems noted. Surgical History: Surgical History (Last Reviewed 02/28/25 @ 11:27 by Ivy Washington NP-C) H/O varicose vein ligation History of colonoscopy History of total left knee replacement Hx of laparoscopic gastric banding Social History: Social History (Last Reviewed 02/28/25 @ 11:27 by Ivy Washington NP-C) Living Situation History: Household Members: Spouse Housing: House Are you a primary child care worker to a significant other at home: No Do you presently have visiting nurse or other home services: No Tobacco History: Patient Tobacco Use Status: Former Tobacco user Tobacco use type: Cigarette Years Smoked: 5 +/- Second Hand Smoke Exposure: No Occupation Assessmet: service: No Home Medications and Allergies Current Medications: Current Medications Acetaminophen (Acetaminophen 325 Mg Tablet) 650 mg PO Q6H PRN PRN Reason: Pain, Mild 1-3,fever,headache Amlodipine Besylate (Amlodipine Besylate 10 Mg Tablet) 10 mg PO DAILY [facility]; Protocol Atorvastatin Calcium (Atorvastatin Calcium 80 Mg Tablet) 80 mg PO BEDTIME [facility] Calcium Carbonate (Calcium Carbonate 750 Mg Tab.Chew) 750 mg PO Q4H PRN PRN Reason: Heartburn Fluticasone Propionate (Fluticasone Propionate Nasal 16 Gm [place]) 1 spray NOSTRIL-B DAILY [facility] Last Admin: 09/03/25 10:34 Dose: Not Given Heparin Sodium (Porcine) (Heparin Sodium,Porcine 5,000 Unit/Ml Vial) 5,000 unit SUBCUT Q12H [facility] Last Admin: 09/03/25 13:41 Dose: 5,000 unit Magnesium Hydroxide (Milk Of Magnesia 30 Ml Oral.Susp) 30 ml PO DAILY PRN PRN Reason: Constipation Melatonin (Melatonin 3 Mg Tablet) 6 mg PO BEDTIME PRN PRN Reason: Insomnia Metoprolol Succinate (Metoprolol Succinate Er 25 Mg Tab.Er.24h) 25 mg PO DAILY [facility]; Protocol Last Admin: 09/03/25 15:04 Dose: 25 mg Ondansetron HCl (Ondansetron Hcl 4 Mg/2 Ml Vial) 4 mg IVPUSH Q8H PRN PRN Reason: Nausea and Vomiting Sodium Chloride (0.9 % Sodium Chloride Flush 3 Ml Syringe) 3 ml IVFLUSH QSHIFT [facility] Last Admin: 09/03/25 15:05 Dose: 3 ml Valsartan (Valsartan 320 Mg Tablet) 320 mg PO DAILY [facility]; Protocol Home Medications ?Medication ?Instructions ?Recorded ?Confirmed ?Type amlodipine 10 mg tablet 10 mg PO DAILY 06/17/21 09/02/25 History atorvastatin 80 mg tablet 80 mg PO BEDTIME 06/20/22 09/02/25 Histo ry valsartan 320 1 tab PO DAILY 07/04/23 09/02/25 History mg-hydrochlorothiazide 12.5 mg tablet metformin 500 mg tablet,extended 500 mg PO BID 05/07/24 09/02/25 History release 24 hr fluticasone propionate 50 1 spray intranasal DAILY 08/08/24 History mcg/actuation nasal spray,suspension aspirin 81 mg tablet 81 mg PO DAILY 09/02/25 09/02/25 History Allergies Allergy/AdvReac Type Severity Reaction Status Date / Time No Known Allergies (No Known Allergy Verified 09/02/25 08:17 Allergies*) Physical Exam Vital signs: Vital Signs Temp 100.3 F 09/03/25 15:51 Pulse 99 09/03/25 15:43 Resp 18 09/03/25 15:43 BP 133/73 09/03/25 15:43 Pulse Ox 96 09/03/25 15:43 O2 Del Method Room Air 09/03/25 15:43 Intake & Output 09/02/25 09/03/25 09/03/25 18:59 06:59 18:59 Intake Total 1999 / 3540 1540 / 3540 1125.000 / 1125.000 Output Total 200 / 1000 800 / 1000 200 / 200 Balance 1800 / 2540 740 / 2540 925.000 / 925.000 Urine Output (Average ml/kg/hr) 0.19 0.77 0.19 Intake: Intake, Oral Amount 540 / 540 120 / 120 Intake, IV Amount 2000 / 3000 1000 / 3000 1005.000 / 1005.000 0.9 % Sodium Chloride 1,000 ml 1000 / 1000 @ 999 mls/hr IV .Q1H1M ONE Rx#: [id number] Lactated Ringers 1,000 ml @ 999 1000 / 1000 mls/hr IV .Q1H1M ONE Rx#: [id number] Lactated Ringers 1,000 ml @ 100 1000 / 1000 1005.000 / 1005.000 mls/hr IVCONT .Q10H [facility] Rx#: [id number] Output: Output, Urine Amount 200 / 1000 800 / 1000 200 / 200 Other: Lunch % Eaten 75% Eating (Feeding) Ability Independent Urine Urinal Urinal Urinal Urine Color Yellow Yellow Yellow Last Bowel Movement 09/01/25 09/01/25 09/01/25 Weight 87.09 kg Weight 87.09 kg - Constitutional Present: mild distress - Routine HEENT Exam Head: Present: normal inspection, normocephalic Eye: Present: normal appearance ENT: Present: mucous membranes moist - Routine Neck Exam Present: supple Hem/Onc Consult Result - Labs CBC & Chem 7: 09/04/25 09:12 09/04/25 09:12 Labs: Short CBC 09/03/25 Range/Units 06:40 WBC 2.5 L (4.8-10.8) X10*3/uL Hgb 11.1 L (14.0-18.0) g/dl Hct 33.6 L (42.0-52.0) % Plt Count 73 L (160-400) X10*3/uL BMP 09/03/25 06:40 Sodium 138 Potassium 3.8 Chloride 102 Carbon Dioxide 27 BUN 44 H Creatinine 1.61 H Calcium 8.5 Liver Function 09/03/25 09/03/25 09/03/25 Range/Units 06:40 06:40 06:40 Total Bilirubin 0.7 Cancelled (0.0-1.0) mg/dL Direct Bilirubin 0.3 Cancelled (0.0-0.5) mg/dL AST 71 H (5-37) U/L ALT (0-40) U/L Alkaline Phosphatase (39-117) U/L Albumin (3.5-5.0) g/dL 09/03/25 09/03/25 09/03/25 Range/Units 06:40 06:40 06:40 Total Bilirubin (0.0-1.0) mg/dL Direct Bilirubin (0.0-0.5) mg/dL AST Cancelled (5-37) U/L ALT 51 H Cancelled (0-40) U/L Alkaline Phosphatase 57 Cancelled (39-117) U/L Albumin 3.5 (3.5-5.0) g/dL 09/03/25 Range/Units 06:40 Total Bilirubin (0.0-1.0) mg/dL Direct Bilirubin (0.0-0.5) mg/dL AST (5-37) U/L ALT (0-40) U/L Alkaline Phosphatase (39-117) U/L Albumin Cancelled (3.5-5.0) g/dL Assessment and Plan Patient Active problem list reviewed?: Yes (1) Thrombocytopenia Status: Acute Assessment and plan: 75-year-old gentleman, presented with a syncopal episode. Noted to have new onset AFib, with RVR. Pancytopenia: CBC from today: WBC 2.5, HGB 11.1, HCT 33.6, PLT 73. 09/02: PLT 87. 07/31/2025. PLT 236. The drop in platelet count appears to be rather acute, more likely to be from an event i.e. viral syndrome. In terms of anticoagulation in the setting of atrial fibrillation, in general, the cut off for platelets is 50,000. One can carefully initiate anticoagulation above that level. PLAN: Can start him on Lovenox.(shorter duration of action than NOACs.) Monitor the platelet count closely. Will need to hold if the platelets drop to 50 or below. Thank you for the consult, I will follow along with you, CC: Dr. Kevin Mtz. - Time Spent With Patient Time Spent with Patient (in minutes): 30
[2025-09-04 00:05] VITALS: BP 135/77; PULSE 78; RESP 18; TEMP 36.3; O2SAT 99
[2025-09-04 03:14] VITALS: BP 128/67; PULSE 89; RESP 18; TEMP 36.4; O2SAT 98
[2025-09-04 07:17] VITALS: BP 123/59; PULSE 89; RESP 18; TEMP 36.9; O2SAT 96
[2025-09-04 07:23] LABS: Glucose, Whole Blood 120 mg/dL (60-115)
[2025-09-04] MEDS: 0.9 % Sodium Chloride Flush 3 ML SYRINGE IVFLUSH (08:04)
[2025-09-04] MEDS: Metoprolol Succinate ER 25 MG TAB.ER.24H PO (08:05)
[2025-09-04 09:46] LABS: Hematocrit 33.3 % (42.0-52.0); Hemoglobin 11.0 g/dl (14.0-18.0); Imm Gran Abs Auto 0.02 X10*3/uL (0.00-0.03); Imm Gran Pct Auto 0.6 % (0.0-0.4); Lymphocytes Absolute Auto 0.8 X10*3/uL (1.2-4.9); MANUAL DIFF FLAG SCAN; Mean Corpuscular HGB Conc 33.0 g/dl (31.0-36.0); Mean Corpuscular Hemoglobin 29.3 pg (27.0-33.0); Mean Corpuscular Volume 88.6 fL (80.0-98.0); NRBC Abs Auto 0.000 X10*3/uL (0.0-0.012); NRBC Pct Auto 0.0 /100WBC (0.0-0.2); Platelet Count 73 X10*3/uL (160-400); Red Blood Count 3.76 X10*6/uL (4.60-5.80); SCAN SMEAR FLAG 1; White Blood Count 3.3 X10*3/uL (4.8-10.8)
[2025-09-04 09:59] LABS: Alanine Aminotransferase 47 U/L (0-40); Albumin Level 3.4 g/dL (3.5-5.0); Alkaline Phosphatase 55 U/L (39-117); Anion Gap 10 (12-20); Aspartate Amino Transferase 62 U/L (5-37); Blood Urea Nitrogen 33 mg/dL (9-16); Calcium 8.3 mg/dL (8.4-10.2); Carbon Dioxide 27 mmol/L (22-29); Chloride 103 mmol/L (96-108); Creatinine Clr Calc Pharmacy 67.6; Estimated Glomerular Filt Rate > 60; Potassium 3.3 mmol/L (3.3-5.1); Sodium 137 mmol/L (135-145); Total Protein 6.0 g/dL (6.5-8.0)
[2025-09-04 11:36] LABS: Glucose, Whole Blood 150 mg/dL (60-115)
[2025-09-04 11:49] VITALS: BP 167/81; PULSE 68; RESP 18; TEMP 37; O2SAT 98
--- NOTE | 2025-09-04 13:44 | MHC.CM.PN ---
Patient has been medically cleared for dc to home today, self care.
--- NOTE | 2025-09-04 13:46 | P.PNNP_ITS ---
Subjective Subjective Date of Service: 09/04/25 Interval history: Feels better Physical Exam 2 Vital Signs: Vital Signs: Last Vital Signs Temp 98.6 F 09/04/25 11:49 Pulse 68 09/04/25 11:49 Resp 18 09/04/25 11:49 BP 167/81 H 09/04/25 11:49 Pulse Ox 98 09/04/25 11:49 O2 Del Method Room Air 09/04/25 11:49 BMI result Body Mass Index 24.0 Const: General: comfortable and no acute distress O rientation/consciousness: patient oriented x3 HEENT: Head: Yes normocephalic Mouth: Normal oral and palatal mucosa present Eyes: EOM: EOMs intact bilaterally Neck: Neck: Yes supple Resp: Auscultation: clear to auscultation bilaterally Cardio: Jugular venous distension: no JVD Rate: regular rate GI: Palpation (GI): Soft to palpation Auscultation: normal bowel sounds : General: Yes no CVA tenderness Back/Spine/Pelvis: Back: no CVA tenderness Skin: General skin exam: no rashes or lesions noted Neuro: General: patient oriented x3 and moves all extremities Extrem: General: Yes no pedal edema Objective Data Labs 09/04/25 09:12 09/04/25 09:12 Labs: Laboratory Results - last 24 hr 09/03/25 09/04/25 09/04/25 15:45 07:19 09:12 WBC 3.3 L RBC 3.76 L Hgb 11.0 L Hct 33.3 L MCV 88.6 MCH 29.3 MCHC 33.0 RDW 14.6 Plt Count 73 L MPV 12.8 H Immature Gran % (Auto) 0.6 H Neut % (Auto) 65.5 Lymph % (Auto) 23.5 [place] % (Auto) 10.4 Eos % (Auto) 0.0 Baso % (Auto) 0.0 Lymph # (Auto) 0.8 L [place] # (Auto) 0.3 Eos # (Auto) 0.0 Baso # (Auto) 0.0 Abs Immat Gran (auto) 0.02 Absolute Neuts (auto) 2.2 Absolute Nucleated RBC 0.000 Nucleated RBC % (auto) 0.0 Smear Tech's Comments VERIFIED Sodium 137 Potassium 3.3 Chloride 103 Carbon Dioxide 27 Anion Gap 10 L BUN 33 H Creatinine 1.11 Estim Creat Clear Calc 67.6 Estimated GFR > 60 POC Glucose 130 H 120 H Fasting Glucose 189 H Calcium 8.3 L Total Bilirubin 0.8 AST 62 H ALT 47 H Alkaline Phosphatase 55 Total Protein 6.0 L Albumin 3.4 L 09/04/25 11:32 WBC RBC Hgb Hct MCV MCH MCHC RDW Plt Count MPV Immature Gran % (Auto) Neut % (Auto) Lymph % (Auto) [place] % (Auto) Eos % (Auto) Baso % (Auto) Lymph # (Auto) [place] # (Auto) Eos # (Auto) Baso # (Auto) Abs Immat Gran (auto) Absolute Neuts (auto) Absolute Nucleated RBC Nucleated RBC % (auto) Smear Tech's Comments Sodium Potassium Chloride Carbon Dioxide Anion Gap BUN Creatinine Estim Creat Clear Calc Estimated GFR POC Glucose 150 H Fasting Glucose Calcium Total Bilirubin AST ALT Alkaline Phosphatase Total Protein Albumin Procedures Date of Service Date of Service: 09/04/25 Assessment & Plan Assessment and plan (1) Thrombocytopenia: Status: Acute Plan WILIAN due to hypoperfusion. Renal function is improving. For now keep intake more than output Continue to avoid nephrotoxic agents. And avoid hypotension. She will follow along with the team. If discharged we will follow-up as an outpatient. Time Spent With Patient Time: Total time managing care of this patient today ____ minutes. Progress Note: Quality Stroke Does the patient have a stroke diagnosis?: No
--- NOTE | 2025-09-04 13:50 | P.DS_ITS ---
DS: Providers Provider Date of Service: 09/04/25 Date of admission: 09/02/25 12:39 Date of discharge: 09/04/25 Primary care physician: Kevin Mtz MD Consults: 09/02/25 09:41 Consult to Cardiology Stat Consulting Provider: Oral Escudero Reason for consultation: new onset afib Has provider been notified: Yes 09/02/25 12:48 Consult to Nephrology Routine Consulting Provider: [facility] Reason for consultation: wilian 09/03/25 14:42 Consult to Hematology / Oncology Routine Consulting Provider: [facility] On[facility]/Hematology Reason for consultation: Thrombocytopenia and need for anticoagulation (AFib) Has provider been notified: No DS: Diagnosis Discharge Diagnosis (1) New onset a-fib: Status: Acute (2) WILIAN (acute kidney injury): Status: Acute (3) Thrombocytopenia: Status: Acute DS: Summary Hospital Course Hospital Course: 75-year-old man with a history of hypertension, coronary artery disease presenting to the ER after an episode of syncope and weakness. He reported on Monday he started feeling unwell, weak reported ataxia. Then on Monday started getting muscle weakness. Then this morning he got up and suddenly fell down and reported that he did lose consciousness. His heard him and they called his primary care provider who told him to come to the ER to be evaluated. Patient denied any chest pain, shortness breath, palpitations, nausea, vomiting, diarrhea, fever, recent illness, sick contacts, recent travel. 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 In the ER, he was found to be in new onset atrial fibrillation with rapid ventricular response however his heart rate has been below 100s. Initially his blood pressure was low with systolic blood pressure in the 70s. He was given 1 L of IV fluid which did help bring up his blood pressure systolically to the 90s. We will continue slow IV fluids for now to keep blood pressure up. Chest x-ray negative for any acute abnormality, head CT negative for any trauma, cervical spine CT showing no acute fracture. Patient was given 2 L of IV fluids while in the ER. He will be admitted for further management and treatment of new onset atrial fibrillation and syncope. Hospital Course Admitted to telemetry where he remained in persistent atrial fibrillation. He was seen by Cardiology; metoprolol 25 mg ER was added to regimen. Found to be pancytopenic on admission; hematology consult obtained prior to initiation of Eliquis. Platelets rechecked and found to be greater than 70 so Eliquis was started twice daily. His renal function returned to baseline with volume repletion. 2D echo was done which showed decreased LV function With [id number] aortic stenosis. At this point his rate has been stable under 100 and he is medically acceptable for discharge. He will follow up with Cardiology as an outpatient Time Attestation Discharge Coordination Time (in mins): 35 Quality: Safe Use of Opioids Does Pt have an Active Cancer Diagnosis on the Problem List?: No Quality: Stroke Does the patient have a stroke diagnosis?: No Physical Exam Vital Signs: Vital Signs: Last Vital Signs Temp 98.6 F 09/04/25 11:49 Pulse 68 09/04/25 11:49 Resp 18 09/04/25 11:49 BP 167/81 H 09/04/25 11:49 Pulse Ox 98 09/04/25 11:49 O2 Del Method Room Air 09/04/25 11:49 BMI result Body Mass Index 24.0 Const: Other: Awake alert.. No acute distress Resp: Other: Clear to auscultation bilaterally no rales rhonchi or wheezes Cardio: Other: No S4; positive S1-S2; no S3 2/6 systolic murmur best heard at right sternal border 2nd intercostal space GI: Other: Soft nontender nondistended normoactive bowel sounds Extrem: Other: No edema bilaterally DS: Data Data Completed and Pending Labs on day of discharge: Laboratory Results - last 24 hr 09/03/25 09/04/25 09/04/25 15:45 07:19 09:12 WBC 3.3 L RBC 3.76 L Hgb 11.0 L Hct 33.3 L MCV 88.6 MCH 29.3 MCHC 33.0 RDW 14.6 Plt Count 73 L MPV 12.8 H Immature Gran % (Auto) 0.6 H Neut % (Auto) 65.5 Lymph % (Auto) 23.5 Ell[place] % (Auto) 10.4 Eos % (Auto) 0.0 Baso % (Auto) 0.0 Lymph # (Auto) 0.8 L [place] # (Auto) 0.3 Eos # (Auto) 0.0 Baso # (Auto) 0.0 Abs Immat Gran (auto) 0.02 Absolute Neuts (auto) 2.2 Absolute Nucleated RBC 0.000 Nucleated RBC % (auto) 0.0 Smear Tech's Comments VERIFIED Sodium 137 Potassium 3.3 Chloride 103 Carbon Dioxide 27 Anion Gap 10 L BUN 33 H Creatinine 1.11 Estim Creat Clear Calc 67.6 Estimated GFR > 60 POC Glucose 130 H 120 H Fasting Glucose 189 H Calcium 8.3 L Total Bilirubin 0.8 AST 62 H ALT 47 H Alkaline Phosphatase 55 Total Protein 6.0 L Albumin 3.4 L 09/04/25 11:32 WBC RBC Hgb Hct MCV MCH MCHC RDW Plt Count MPV Immature Gran % (Auto) Neut % (Auto) Lymph % (Auto) Ellsworth % (Auto) Eos % (Auto) Baso % (Auto) Lymph # (Auto) [place] # (Auto) Eos # (Auto) Baso # (Auto) Abs Immat Gran (auto) Absolute Neuts (auto) Absolute Nucleated RBC Nucleated RBC % (auto) Smear Tech's Comments Sodium Potassium Chloride Carbon Dioxide Anion Gap BUN Creatinine Estim Creat Clear Calc Estimated GFR POC Glucose 150 H Fasting Glucose Calcium Total Bilirubin AST ALT Alkaline Phosphatase Total Protein Albumin Discharge Plan Discharge Anticipated Discharge Date/Time: 09/04/25 13:37 Patient Disposition: Home, Self-Care Discharge Diagnosis: New onset atrial fibrillation Referrals: Kevin Mtz MD [Primary Care Provider, Medical] - 1 Week Discharge Medications: New metoprolol succinate 25 mg Tablet Extended Release 24 Hr 25 mg PO DAILY Qty: 30 0RF Protocol: Hold for SBP/HR < HOLD for SBP < : 90 HOLD for HR < : 60 Eliquis 5 mg tablet 5 mg PO BID Qty: 60 0RF Continued spironolactone 25 mg tablet 25 mg PO DAILY Qty: 90 3RF atorvastatin 80 mg tablet 80 mg PO BEDTIME metformin 500 mg tablet extended release 24 hr 500 mg PO BID aspirin 81 mg Tablet 81 mg PO DAILY amlodipine 10 mg tablet 10 mg PO DAILY valsartan-hydrochlorothiazide 320-12.5 mg tablet 1 tab PO DAILY fluticasone propionate 50 mcg/actuation spray,suspension 1 spray intranasal DAILY Discharge Orders: Discharge Order (Routine); Ordered 09/04/25 Ordered By: Edmundo Slater Diet: Advance to usual diet Activity on Discharge: As tolerated Stand Alone Forms: Patient Portal Discharge page Print Language: Other Care Plan Goals: Eliquis 5 mg twice daily along with metoprolol extended-release 25 mg once daily has been added to your regimen Health Concerns: Follow up with Cardiology Plan of Treatment: Resume all other medications as previously taken prior to hospitalization Assessment: See discharge summary
== END 2025-09-04 15:10 | disposition home or self-care (01) | DRG 309 ==
LOC: HO.ED 09:50 → HO.EDOVER 12:58 → HO.IMC 14:24
PROVIDERS: Physician Assistant Medical; Admitting Provider Nurse Practitioner Acute Care; Emergency Provider Emergency Medicine; PCP Internal Medicine; Visit Provider Hospitalist
DX: I48.19 Other persistent atrial fibrillation (principal); D61.818 Other pancytopenia; N17.9 Acute kidney failure, unspecified; E86.0 Dehydration; I95.1 Orthostatic hypotension; I25.10 Atherosclerotic heart disease of native coronary artery without angina pectoris; E11.9 Type 2 diabetes mellitus without complications; Z20.822 Contact with and (suspected) exposure to COVID-19; Z95.5 Presence of coronary angioplasty implant and graft; Z87.891 Personal history of nicotine dependence; Z79.82 Long term (current) use of aspirin; Z79.899 Other long term (current) drug therapy
CPT/HCPCS: 36415; 70450; 71045; 72125; 80048; 80053; 80076; 81001; 82248; 82947; 83735; 84484; 85025; 85027; 85610; 85730; 87502; 87633; 87635; 93005; 93306; 99285; J1644; J7120; Q9957

== ENCOUNTER → 2025-09-02 08:43 | Outpatient (BNV) | payer MEDICARE, SELFPAY | PROVIDERS: Emergency Provider Emergency Medicine; PCP Internal Medicine; Visit Provider Radiology Diagnostic Radiology | DX: M47.812 Spondylosis without myelopathy or radiculopathy, cervical region (principal); S09.90XA Unspecified injury of head, initial encounter; R53.1 Weakness | CPT/HCPCS: 70450; 71045; 72125 ==

== ENCOUNTER 2025-09-02 12:39 | Outpatient (BNV) | payer MEDICARE, SELFPAY | END 2025-09-03 07:00 | PROVIDERS: Admitting Provider Nurse Practitioner Acute Care; Emergency Provider Emergency Medicine; PCP Internal Medicine; Visit Provider Internal Medicine | DX: I35.0 Nonrheumatic aortic (valve) stenosis (principal) | CPT/HCPCS: 93306 ==

== ENCOUNTER → 2025-09-02 12:39 | Outpatient (BNV) | payer MEDICARE, SELFPAY | PROVIDERS: Admitting Provider Nurse Practitioner Acute Care; Emergency Provider Emergency Medicine; PCP Internal Medicine; Visit Provider Nurse Practitioner Acute Care | DX: I48.91 Unspecified atrial fibrillation (principal); E11.8 Type 2 diabetes mellitus with unspecified complications; N17.9 Acute kidney failure, unspecified | CPT/HCPCS: 99233 ==

== ENCOUNTER → 2025-09-02 12:39 | Outpatient (BNV) | payer MEDICARE, SELFPAY | PROVIDERS: Admitting Provider Nurse Practitioner Acute Care; Emergency Provider Emergency Medicine; PCP Internal Medicine; Visit Provider Internal Medicine Medical Oncology | DX: D69.6 Thrombocytopenia, unspecified (principal) | CPT/HCPCS: 99222 ==

== ENCOUNTER → 2025-09-02 12:39 | Outpatient (BNV) | payer MEDICARE, SELFPAY | PROVIDERS: Admitting Provider Nurse Practitioner Acute Care; Emergency Provider Emergency Medicine; PCP Internal Medicine; Visit Provider Internal Medicine | DX: I95.1 Orthostatic hypotension (principal); I48.91 Unspecified atrial fibrillation; N17.9 Acute kidney failure, unspecified; R77.8 Other specified abnormalities of plasma proteins | CPT/HCPCS: 99223 ==

== ENCOUNTER → 2025-09-02 12:39 | Outpatient (BNV) | payer MEDICARE, SELFPAY | PROVIDERS: Admitting Provider Nurse Practitioner Acute Care; Emergency Provider Emergency Medicine; PCP Internal Medicine; Visit Provider Internal Medicine Nephrology | DX: D69.6 Thrombocytopenia, unspecified (principal) | CPT/HCPCS: 99232 ==

== ENCOUNTER 2025-09-11 13:02 | Inpatient (IN) | payer MEDICARE, SELFPAY ==
--- OUTSIDE RECORDS SUMMARY | 2024-07-15 05:00 | XMS_ITS ---
Author Organization Kevin Mtz MD Address [address] [place], [place] [id number] Care Team Providers Care Facing End Trimmer Name Role Phone Bibi Kevin Primary Care Provider Results Component Value Reference Range Notes Complete Blood Count Auto Di ff Reviewed date:07/16/2024 08:30:25 AM Interpretation: Performing Lab:[facility], [address] [place] [phone] Notes/Report: White Blood Count 5.4 4.8-10.8 X10*3/uL Red Blood Count 4.23 4.60-5.80 X10*6/uL Hemoglobin 13.1 14.0-18.0 g/dl Hematocrit 40.7 42.0-52.0 % Mean Corpuscular Volume 96.2 80.0-98.0 fL Mean Corpuscular Hemoglobin 31.0 27.0-33.0 pg Mean Corpuscular HGB Conc 32.2 31.0-36.0 g/dl Red Cell Distribution Width 14.1 11.0-16.0 % Platelet Count 238 160-400 X10*3/uL Mean Platelet Volume 11.1 9.4-12.4 fL Neutrophils Percent Auto 64.1 45-73 % Imm Gran Pct Auto 0.2 0.0-0.4 % Lymphocytes Percent Auto 22.2 20-40 % Monocytes Percent Auto 9.0 2-11 % Eosinophils Percent Auto 4.1 0-4 % Basophils Percent Auto 0.4 0-2 % NRBC Pct Auto 0.0 0.0-0.2 /100WBC Neutrophils Absolute Auto 3.4 2.0-8.3 x10*3/u L Imm Gran Abs Auto 0.01 0.00-0.03 X10*3/uL Lymphocytes Absolute Auto 1.2 1.2-4.9 X10*3/u L Monocytes Absolute Auto 0.5 0.1-1.2 X10*3/uL Eosinophils Absolute Auto 0.2 0.0-0.4 X10*3/u L Basophils Absolute Auto 0.0 0.0-0.2 X10*3/uL NRBC Abs Auto 0.000 0.0-0.012 X10*3/uL Comprehensive [place]. Panel Fa st Reviewed date:07/16/2024 08:25:25 AM Interpretation: Performing Lab:[facility], [address] [place] [phone] Notes/Report: Sodium 141 135-145 mmol/L Potassium 4.5 3.3-5.1 mmol/L Slight Hemoly sis Chloride 107 96-108 mmol/L Carbon Dioxide 24 22-29 mmol/L Anion Gap 15 12-20 Blood Urea Nitrogen 22 9-16 mg/dL Creatinine 1.22 0.5-1.4 mg/dL Estimated Glomerular Filt Rate 58 NOTE: For -Ugand[place] individuals, multiply the result by 1.210. Chronic Kidney Disease: Estimated GFR < 60 mL/min/1.73m2 Severe Kidney Disease: Estimated GFR < 15 mL/min/1.73m2 Glucose Fasting 126 60-99 mg/dL A fasting glucose of 126 mg/dl or greater on more than one occasion is considered diagnostic of diabetes. Calcium 10.3 8.4-10.2 mg/dL Bilirubin Total 0.8 0.0-1.0 mg/dL Aspartate Amino Transferase 28 5-37 U/L Slight Hemolysis Alanine Aminotransferase 21 0-40 U/L Total Protein 8.2 6.5-8.0 g/dL Albumin Level 4.9 3.5-5.0 g/dL Alkaline Phosphatase 76 39-117 U/L Lipid Panel Reviewed date:07/15/2024 04:00:45 PM Interpretation: Performing Lab:[facility], [address] [place] [phone] Notes/Report: Triglycerides 79 <150 mg/dL Desirable Triglyceride: less than 150 mg/dL Borderline High Triglyceride 150-199 mg/dL High Triglyceride: 200-499 mg/dL Very High Triglyceride: greater than or equal to 5OO mg/dL Cholesterol 131 <200 mg/dL Desirable Cholesterol: less than 200 mg/dL Borderline High Cholesterol: 200-239 mg/dL High Cholesterol: greater than 239 mg/dL LDL Cholesterol Calculated 67 <100 mg/dL Desirable LDL: less than 100 mg/dL Near Optimal/Above Optimal LDL: 110-129 mg/dL Borderline High LDL: 130-159 mg/dL High LDL: 160-189 mg/dL Very High LDL: greater than or equal to 190 mg/dL HDL Cholesterol 49 >40 mg/dL Desirable HDL: greater than 40 mg/dL Note: This HDL assay may give artificially low results in patients with liver disease. PSA,Total (Free>4and<10) Reviewed date:07/15/2024 04:01:07 PM Interpretation: Performing Lab:[facility], [address] [place] [phone] Notes/Report: PSA,Total (Free>4and<10) 1.08 0.00-4.00 ng/mL A Free PSA was not performed: The percentage of Free PSA can be used to enhance the differentiation of prostate cancer from benign prostatic disease in subjects whose PSA levels are between 4.0 and 10.0 ng/mL. For subjects whose PSA levels are below 4.0 or above 10.0 ng/mL, the risk of prostate cancer is determined on the basis of the PSA alone. Therefore the % Free PSA is recommended only for those subjects whose PSA levels are between 4.0 and 10.0 ng/mL. PSA methodology: Reese Alinity i Chemiluminescent Microparticle Immunoassay (CMIA) Microalbumin, Random Reviewed date:07/15/2024 04:00:56 PM Interpretation: Performing Lab:[facility], [address] [place] [phone] Notes/Report: Creatinine Urine 114.07 Microalbumin Urine 35.0 Microalbum/Creatinine Ratio Ur 30.6 <30 ug/mg cr Albumin/Creatinine Ratio Reference Ranges: Normal: < 30 ug/mg creatinine Microalbuminuria: 30 - 300 ug/mg creatinine Clinical Albuminuria: > 300 ug/mg creatinine Hemoglobin A1c Reviewed date:07/15/2024 04:04:15 PM Interpretation: Performing Lab:[facility], [address] [place] [phone] Notes/Report: Hemoglobin A1c % 5.9 <6.0 % Hemoglobin A1C Reference Range Adults: 4.8 - 6.0 % Non diabetic: < 6.0 % Goal: < 7.0 % Additional Action Suggested: > 8.0 % Note: Hemoglobin A1c results are invalid for patients with abnormal amounts of HbF. Blood transfusions may impact the HbA1c concentration in the patient sample. Estimated Average Glucose 123 eAG = Estimated average glucose which is %A1C expressed as average glucose, using the formula of the B9F-Oopuukt Average Glucose study (ADAG), Diabetes Care, Vol.31,#8, Jun. 2007 UA ClnCatch+Micro w/rflx Cul t Reviewed date:07/16/2024 08:48:29 AM Interpretation: Performing Lab:[facility], [address] [place] [phone] Notes/Report: Urine, Clean Catch Color Urine Yellow Appearance Urine Clear PH 5.0 5.0-9.0 Glucose Urine UA Negative Negative mg/dL Urine Blood Negative Negative Specific [place] - Urine 1.020 1.005-1.025 Urine Protein Negative Neg-Trace mg/dL Urine Ketones Trace Negative mg/dL Nitrite Urine Negative Negative Leukocyte Esterase Urine Negative Negative RBC Urine 0-2 0-2 /HPF WBC Urine 0-5 0-5 /HPF Squamous Epithelial Cell Urine 0-2 0-2 /HPF Bacteria Urine None Seen None Seen Hyaline Casts Urine 0-2 0-2 /LPF REASON FOR VISIT FASTING LABS Immunizations Vaccine Route Administration Date Status Comme nts Influenza High Dose IM Intramuscular 07/15/2024 Administer ed Encounters Encounter Location Date Provider Diagnosis Kevin Mtz MD [address] [place] [phone] 07/15/2024 Kevin Mtz Annual physical exam Z00.00 ; Encounter for immunization Z23 ; Essential hypertension I10 ; Type 2 diabetes, controlled, 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 and Hypercalcemia E83.52 Assessments Encounter Date Diagnosis (ICD Code) Assessment Notes Treatment Notes Treatment Clinical Notes Section Notes 07/15/2024 Annual physical exam (ICD-10 - Z00.00) 07/15/2024 Encounter for immunization (ICD-10 - Z23) 07/15/2024 Essential hypertension (ICD-10 - I10) 07/15/2024 Type 2 diabetes, controlled, with neuropathy (ICD-10 - E11.40) 07/15/2024 Hypercalcemia (ICD-10 - E83.52) Plan Of Treatment Next Appt Details Provider Name:Kevin ibarra, 09/12/2025 10:30:00 AM, [address] [place] [address], [address], [phone], Provider Name:Kevin ibarra, 09/12/2025 10:30:00 AM, [address] [place] [address], [address], [phone], Provider Name:Kevin ibarra, 02/10/2026 07:30:00 AM, [address] [place] [address], [address], [phone], Provider Name:Kevin ibarra, 02/17/2026 10:00:00 AM, [address] [place] [address], [address], [phone], Provider Name:Kevin ibarra, 08/03/2026 07:30:00 AM, [address] [place] [address], [phone], Provider Name:Kevin ibarra, 08/10/2026 10:30:00 AM, [address] [place] [address], [phone], Progress Notes * Rosalba CLIFFORDOB:1950 ( 75 yo M)Acc No.[id number]:07/15/2024 Progress Note Patient: Nam LEHMAN Provider: Geo Mtz MD :1950 A ge:74 Y S ex:Male Date:07/15/2024 Address:[address] [place] [address], [facility] Subjective: * Chief Complaints: * 1 . FASTING LABS. * Medical History: Objective: * Vitals: Assessment: * Assessment: 1. E ncounter for immunization - Z23 (Primary) 2 . A nnual physical exam - Z00.00 3 . E ssential hypertension - I10 4 . T ype 2 diabetes, controlled, with neuropathy - E11.40 5 . H ypercalcemia - E83.52 ? Plan: * Treatment: 2. E ssential hypertension L AB: Complete Blood Count Auto Diff (Collection Date & Time - 07/15/2024 10:00 AM) L AB: Comprehensive [place]. Panel Fast (Collection Date & Time - 07/15/2024 10:00 AM) L AB: Lipid Panel (Collection Date & Time - 07/15/2024 10:00 AM) L AB: PSA,Total (Free>4and<10) (Collection Date & Time - 07/15/2024 10:00 AM) L AB: Microalbumin, Random (Collection Date & Time - 07/15/2024 10:00 AM) L AB: Hemoglobin A1c (Collection Date & Time - 07/15/2024 10:00 AM) L AB: UA ClnCatch+Micro w/rflx Cult (Collection Date & Time - 07/15/2024 10:00 AM) 3. T ype 2 diabetes, controlled, with neuropathy L AB: Complete Blood Count Auto Diff (Collection Date & Time - 07/15/2024 10:00 AM) L AB: Comprehensive [place]. Panel Fast (Collection Date & Time - 07/15/2024 10:00 AM) L AB: Lipid Panel (Collection Date & Time - 07/15/2024 10:00 AM) L AB: PSA,Total (Free>4and<10) (Collection Date & Time - 07/15/2024 10:00 AM) L AB: Microalbumin, Random (Collection Date & Time - 07/15/2024 10:00 AM) L AB: Hemoglobin A1c (Collection Date & Time - 07/15/2024 10:00 AM) L AB: UA ClnCatch+Micro w/rflx Cult (Collection Date & Time - 07/15/2024 10:00 AM) 4. H ypercalcemia L AB: Complete Blood Count Auto Diff (Collection Date & Time - 07/15/2024 10:00 AM) L AB: Comprehensive [place]. Panel Fast (Collection Date & Time - 07/15/2024 10:00 AM) L AB: Lipid Panel (Collection Date & Time - 07/15/2024 10:00 AM) L AB: PSA,Total (Free>4and<10) (Collection Date & Time - 07/15/2024 10:00 AM) L AB: Microalbumin, Random (Collection Date & Time - 07/15/2024 10:00 AM) L AB: Hemoglobin A1c (Collection Date & Time - 07/15/2024 10:00 AM) L AB: UA ClnCatch+Micro w/rflx Cult (Collection Date & Time - 07/15/2024 10:00 AM) * Immunizations: Influenza High Dose : 0.5 mL (Dose No:1) (Route: Intramuscular) given by Di King , Office Staff on Left Deltoid * Procedure Codes: 9 0662 FLU VACC PRSV FREE INC ANTIG, G0008 ADMN FLU VAC NO FEE SCHED SAME DAY, [address] VENIPUNCT, ROUTINE* * * The named appointment provid er may or may not be the originator of this progress note, and it is not deemed complete until electronically signed by the appointment provider. Sign off status: Pending * Provider: Geo Mtz MD Date: 0 07/15/2024 Generated for Van shanks/Hayes/Jennifersmitting on: 11/11/2024 05:32 PM EST
--- OUTSIDE RECORDS SUMMARY | 2024-08-05 05:00 | XMS_ITS ---
Author Organization Kevin Mtz MD Address [address] [place] [id number] Care Team Providers Care Circus Supervisor Name Role Phone Kevin Mtz Primary Care Provider Allergies No Known Allergies REASON FOR VISIT ANNUAL EXAM Medications Medication SIG (Take, Route, Frequency, Duration) Notes Start Date End Date Status Aspir-81 81 MG 1 tablet Orally Once a day Active Valsartan-hydroCHLOROthiaz jennifer 320-12.5 MG TAKE 1 TABLET BY MOUTH ONCE DAILY Active amLODIPine Besylate 10 MG TAKE 1 TABLET BY MOUTH ONCE DAILY Active Atorvastatin Calcium 80 MG TAKE 1 TABLET BY MOUTH ONCE DAILY Active Brilinta 60 MG 1 tablet Orally Twic e a day Active metFORMIN HCl ER 500 MG take 1 tablet by mouth daily with evening meal Orally twice a day Active Spironolactone 25 MG 1 tablet Orally Active Ventolin HFA 108 (90 Base) MCG/ACT 1 puff as needed Inhalation every 4 hrs for 90 days 01/20/2020 Not-Taking Tylenol 8 Hour 650 MG 2 tablets as neede d Orally every 8 hrs Not-Taking Fluticasone Propionate 50 MCG/ACT INHALE 1 SPRAY IN EACH NOSTRIL ONCE A DAY for 60 Active Social History Tobacco Use: Social History Observation Description Date Details (start date - stop date) Former Smoker NA - NA Tobacco Use/Smoking Question Answer Notes Patient is a former smoker How long has it been since y ou last smoked? > 10 years Additional Findings: Tobacco Non-User Fo rmer smoker, currently using no form of tobacco Alcohol Screen Question Answer Notes Did you have a drink contain ing alcohol in the past year? Yes How often did you have a dri nk containing alcohol in the past year? Monthly or less (1 point) How many drinks did you have on a typical day when you were drinking in the past year? 1 or 2 drinks (0 point) How often did you have 6 or more drinks on one occasion in the past year? Never (0 point) Points 1 Interpretation Negative Problems Problem Type SNOMED Code ICD Code Onset Dates Problem Status W/U Status Risk Notes Problem 919863920 History of angioplasty (Z98.62) Active confirmed Vital Signs Blood pressure systolic 138 mm Hg 08/05/20 24 Blood pressure diastolic 60 mm Hg 024 Height 74 in 08/05/2024 Weight 207 lbs 08/05/2024 BMI 26.57 kg/m2 08/05/2024 weight is down 23 pounds [facility] 4-4-24 Encounters Encounter Location Date Provider Diagnosis Kevin Mtz MD [address] [place] [address] [address] [place], [place] [phone] 08/05/2024 Kevin Mtz Aortic stenosis, mod erate I35.0 ; Annual physical exam Z00.00 ; History of angioplasty Z98.62 ; Essential hypertension I10 ; Type 2 diabetes, controlled, 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 and Hypercholesteremia E78.00 Assessments Encounter Date Diagnosis (ICD Code) Assessment Notes Treatment Notes Treatment Clinical Notes Section Notes 08/05/2024 Aortic stenosis, moderate (ICD-10 - I35.0) is going to have echo in one year to follow, will continue current regiment 08/05/2024 Annual physical exam (ICD-10 - Z00.00) labs reviewed and discussed with patient 08/05/2024 History of angioplas ty (ICD-10 - Z98.62) doing well, will continue to monitor 08/05/2024 Essential hypertensi on (ICD-10 - I10) stbale, will continue current regiment 08/05/2024 Type 2 diabetes, controlled, with neuropathy (ICD-10 - E11.40) doing well on meds. good a1c, will continue current regiment 08/05/2024 Hypercholesteremia (ICD-10 - E78.00) stable, at goal, will continue current regiment Plan Of Treatment Medication Medication Name Sig Start Date Stop Date Notes Valsartan-hydroCHLOROthiazid e 320-12.5 MG TAKE 1 TABLET BY MOUTH ONCE DAILY amLODIPine Besylate 10 MG TAKE 1 TABLET BY MOUTH ONCE DAILY Atorvastatin Calcium 80 MG TAKE 1 TABLET BY MOUTH ONCE DAILY Brilinta 60 MG 1 tablet Orally Twic e a day metFORMIN HCl ER 500 MG take 1 tablet by mouth daily with evening meal Orally twice a day Spironolactone 25 MG 1 tablet Orally Treatment Notes Assessment Notes Aortic stenosis, moderate is going to [place] in one year to follow, will continue current regiment Annual physical exam labs reviewed and d iscussed with patient History of angioplasty doing well, will continue to monitor Essential hypertension stbale, will cont inue current regiment Type 2 diabetes, controlled, with neurop athy doing well on meds. good a1c, will continue current regiment Hypercholesteremia stable, at goal, felisha l continue current regiment Next Appt Details Follow Up: 6 Months, Reason: Provider Name:Kevin ibarra, 09/12/2025 10:30:00 AM, [address] [place] [address], [address], [phone], Provider Name:Kevin ibarra, 09/12/2025 10:30:00 AM, [address] [place] [address], [address], [phone], Provider Name:Kevin ibarra, 02/10/2026 07:30:00 AM, [address] [place] [address], [address], [phone], Provider Name:Kevin ibarra, 02/17/2026 10:00:00 AM, [address] [place] [address], [address], [phone], Provider Name:Kevin Hernandez ier, 08/03/2026 07:30:00 AM, [address], [address], [place], [phone], Provider Name:Kevin Hernandez ier, 08/10/2026 10:30:00 AM, [address], [address], [place], [phone], Progress Notes * Rosalba CLIFFORDOB:1950 ( 74 yo M)Acc No.[id number]:08/05/2024 Progress Notes Patient: Nam Dubon Provider: Geo Mtz MD :1950 A ge:74 Y S ex:Male Date:08/05/2024 Address:[address] [place] [address], [facility] Subjective: * Chief Complaints: * A NNUAL EXAM * HPI: D epression Screening: PHQ-9 L ittle interest or pleasure in doing things N ot at all, F eeling down, depressed, or hopeless N ot at all, T rouble falling or staying asleep, or sleeping too much N ot at all, F eeling tired or having little energy N ot at all, P oor appetite or overeating N ot at all, F eeling bad about yourself or that you are a failure, or have let yourself or your family down N ot at all, T rouble concentrating on things, such as reading the newspaper or watching television N ot at all, M oving or speaking so slowly that other people could have noticed; or the opposite, being so fidgety or restless that you have been moving around a lot more than usual N ot at all, T houghts that you would be better off or of hurting yourself in some way N ot at all, T otal Score 0 . I nterpretation and Intervention D epression Screening Findings N egative, F ollow-Up for Depression : review of PHQ-9 found negative result, no follow-up needed. C ommunication Needs: Communication Needs D oes the patient have a hearing impairment N o, D oes the patient have a vision impairment? Y es, I f yes, what is the vision impairment? G lasses, D oes the patient have a cognition impairment? N o. F all Risk: History H ave you had any falls with injury in the past year? N o, H ave you had two or more falls in the past year? N o. S DERRICK Questions: SDOH Questions I n the past year have you been worried about losing housing? N o, I n the past year have you or any family members you live with been unable to get any of the following when it was really needed? Check all that apply: N one. S ymptom(s): patient is a 74 yo male here for annual visit with review of recent labs and follow up of chronic issues. * ROS: G eneral/Constitutional: Patient denies f atigue , headache. C hange in appetite?denies. C hills d enies. F ever d enies. O phthalmologic: Blurred vision d enies. D ischarge d enies. P ain d enies. E NT: Patient denies d ecreased sense of smell , any loss of taste , sore throat. D ecreased hearing d enies. S ore throat d enies. S wollen glands d enies. E ndocrine: Cold intolerance d enies. E xcessive thirst d enies. H eat intolerance d enies. W eight loss d enies. R espiratory: Cough d enies. S hortness of breath at rest d enies. S hortness of breath with exertion d enies. W heezing d enies. C ardiovascular: Chest pain at rest d enies. C hest pain with exertion?denies. I rregular heartbeat d enies. S hortness of breath d enies. ? G astrointestinal: Abdominal pain d enies. C hange in bowel habits d enies. D iarrhea d enies. N ausea d enies. R ectal bleeding d enies. V omiting d enies . G enitourinary: Blood in urine d enies. D ifficulty urinating d enies. F requent urination d enies. M usculoskeletal: Patient denies m uscle aches. P ainful joints d enies. W eakness d enies. P eripheral Vascular: Patient denies r ed and blue toes. S kin: Dry skin d enies. I tching d enies. D enies?Mole(s), changes in moles, new moles or any lesions of concern. D enies P hotosensitivity. R katty d enies. N eurologic: Dizziness d enies. F ainting d enies. H eadache?denies. * Medical History: * Surgical History: * Hospitalization/Major Diagno stic Procedure: * Family History: F ather: 73 yrs. M other: 84 yrs, diagnosed with Cancer. 3 sister(s) . 1 daughter(s) . . Denies mental health/substance abuse family history, Denies mental health/substance abuse family history Father- CVA Mother- Ovarian cancer, Denies mental health/substance abuse family history, Denies mental health/substance abuse family history, Denies mental health/substance abuse family history. * Social History: T obacco Use: T obacco Use/Smoking P atient is a f ormer smoker, H ow long has it been since you last smoked? > 10 years, A dditional Findings: Tobacco Non-User F ormer smoker, currently using no form of tobacco. D rugs/Alcohol: A lcohol Screen D id you have a drink containing alcohol in the past year? Y es, H ow often did you have a drink containing alcohol in the past year? M onthly or less (1 point), H ow many drinks did you have on a typical day when you were drinking in the past year? 1 or 2 drinks (0 point), H ow often did you have 6 or more drinks on one occasion in the past year? N ever (0 point), P oints 1 , I nterpretation N egative. M iscellaneous: C affeine: yes, frequency:, 1-2 cups per day. Children: yes. no Community involvements. Exercise: yes, walking dogs 7 days a wk, about 3 hours a day,. Home smoke detector use: yes. Housing: owning. Living with: spouse. Marital status: . Occupation: works part-time. Pets: none. no Travel outside of the [place]. * Medications: T akingBrilinta 60 MG Tablet 1 tablet Orally Twice a daymetFORMIN HCl ER 500 MG Tablet Extended Release 24 Hour take 1 tablet by mouth daily with evening meal Orally twice a daySpironolactone 25 MG Tablet 1 tablet Orally Valsartan-hydroCHLOROthiazide 320-12.5 MG Tablet TAKE 1 TABLET BY MOUTH ONCE DAILY Aspir-81 81 MG Tablet Delayed Release 1 tablet Orally Once a dayamLODIPine Besylate 10 MG Tablet TAKE 1 TABLET BY MOUTH ONCE DAILY Atorvastatin Calcium 80 MG Tablet TAKE 1 TABLET BY MOUTH ONCE DAILY Fluticasone Propionate 50 MCG/ACT Suspension INHALE 1 SPRAY IN EACH NOSTRIL ONCE A DAY Taking Brilinta 60 MG Tablet 1 tablet Orally Twice a dayTaking metFORMIN HCl ER 500 MG Tablet Extended Release 24 Hour take 1 tablet by mouth daily with evening meal Orally twice a dayTaking Spironolactone 25 MG Tablet 1 tablet Orally Taking Valsartan-hydroCHLOROthiazide 320-12.5 MG Tablet TAKE 1 TABLET BY MOUTH ONCE DAILY Taking Aspir-81 81 MG Tablet Delayed Release 1 tablet Orally Once a dayTaking amLODIPine Besylate 10 MG Tablet TAKE 1 TABLET BY MOUTH ONCE DAILY Taking Atorvastatin Calcium 80 MG Tablet TAKE 1 TABLET BY MOUTH ONCE DAILY Taking Fluticasone Propionate 50 MCG/ACT Suspension INHALE 1 SPRAY IN EACH NOSTRIL ONCE A DAY Not-Taking/PRNTylenol 8 Hour 650 MG Tablet Extended Release 2 tablets as needed Orally every 8 hrsVentolin HFA 108 (90 Base) MCG/ACT Aerosol Solution 1 puff as needed Inhalation every 4 hrsMedication List reviewed and reconciled with the patientNot-Taking/PRN Tylenol 8 Hour 650 MG Tablet Extended Release 2 tablets as needed Orally every 8 hrsNot-Taking/PRN Ventolin HFA 108 (90 Base) MCG/ACT Aerosol Solution 1 puff as needed Inhalation every 4 hrsMedication List reviewed and reconciled with the patient * Allergies: N .K.D.A.yes[Allergies Verified] Objective: * Vitals: H t: 74, Wt:207, BMI:26.57, BP:138/60 weight is down 23 pounds since 02-08-24. * P ast Orders: L ab:Microalbumin, Random (Order Date - 07/15/2024) (Collection Date - 07/15/2024) Value Reference Range Creatinine Urine 114.07 - mg/dL Microalbumin Urine 35.0 - mg/L Microalbum Creatinine Ratio Ur 30.6 H <30 - ug/ mg cr L ab:Hemoglobin A1c (Order Date - 07/15/2024) (Collection Date - 07/15/2024) Value Reference Range Hemoglobin A1c % 5.9 <6.0 - % Estimated Average Glucose 123 - mg/dL L ab:Complete Blood Count Auto Diff (Order Date - 07/15/2024) (Collection Date - 07/15/2024) Value Reference Range White Blood Count 5.4 4.8-10.8 - X10*3/uL Red Blood Count 4.23 L 4.60-5.80 - X10*6/uL Hemoglobin 13.1 L 14.0-18.0 - g/dl Hematocrit 40.7 L 42.0-52.0 - % Mean Corpuscular Volume 96.2 80.0-98.0 - fL Mean Corpuscular Hemoglobin 31.0 27.0-33.0 - pg Mean Corpuscular HGB Conc 32.2 31.0-36.0 - g/ dl Red Cell Distribution Width 14.1 11.0-16.0 - % Platelet Count 238 160-400 - X10*3/uL Mean Platelet Volume 11.1 9.4-12.4 - fL Neutrophils Percent Auto 64.1 45-73 - % Imm Gran Pct Auto 0.2 0.0-0.4 - % Lymphocytes Percent Auto 22.2 20-40 - % Monocytes Percent Auto 9.0 2-11 - % Eosinophils Percent Auto 4.1 H 0-4 - % Basophils Percent Auto 0.4 0-2 - % NRBC Pct Auto 0.0 0.0-0.2 - /100WBC Neutrophils Absolute Auto 3.4 2.0-8.3 - x10* 3/uL Imm Gran Abs Auto 0.01 0.00-0.03 - X10*3/uL Lymphocytes Absolute Auto 1.2 1.2-4.9 - X10* 3/uL Monocytes Absolute Auto 0.5 0.1-1.2 - X10*3/ uL Eosinophils Absolute Auto 0.2 0.0-0.4 - X10* 3/uL Basophils Absolute Auto 0.0 0.0-0.2 - X10*3/ uL NRBC Abs Auto 0.000 0.0-0.012 - X10*3/uL L ab:UA ClnCatch+Micro w/rflx Cult (Order Date - 07/15/2024) (Collection Date - 07/15/2024) Value Reference Range Color Urine Yellow - Appearance Urine Clear - PH 5.0 5.0-9.0 - Glucose Urine UA Negative Negative - mg/dL Urine Blood Negative Negative - Specific [place] - Urine 1.020 1.005-1.025 - Urine Protein Negative Neg-Trace - mg/dL Urine Ketones Trace Negative - mg/dL Nitrite Urine Negative Negative - Leukocyte Esterase Urine Negative Negative - RBC Urine 0-2 0-2 - /HPF WBC Urine 0-5 0-5 - /HPF Squamous Epithelial Cell Urine 0-2 0-2 - /HP F Bacteria Urine None Seen None Seen - Hyaline Casts Urine 0-2 0-2 - /LPF L ab:Comprehensive [place]. Panel Fast (Order Date - 07/15/2024) (Collection Date - 07/15/2024) Value Reference Range Sodium 141 135-145 - mmol/L Bilirubin Total 0.8 0.0-1.0 - mg/dL Aspartate Amino Transferase 28 5-37 - U/L Alanine Aminotransferase 21 0-40 - U/L Total Protein 8.2 H 6.5-8.0 - g/dL Albumin Level 4.9 3.5-5.0 - g/dL Alkaline Phosphatase 76 39-117 - U/L Potassium 4.5 3.3-5.1 - mmol/L Chloride 107 96-108 - mmol/L Carbon Dioxide 24 22-29 - mmol/L Anion Gap 15 12-20 - Blood Urea Nitrogen 22 H 9-16 - mg/dL Creatinine 1.22 0.5-1.4 - mg/dL Estimated Glomerular Filt Rate 58 - Glucose Fasting 126 H 60-99 - mg/dL Calcium 10.3 H 8.4-10.2 - mg/dL L ab:Lipid Panel (Order Date - 07/15/2024) (Collection Date - 07/15/2024) Value Reference Range Triglycerides 79 <150 - mg/dL Cholesterol 131 <200 - mg/dL LDL Cholesterol Calculated 67 <100 - mg/dL HDL Cholesterol 49 >40 - mg/dL L ab:PSA,Total (Free>4and<10) (Order Date - 07/15/2024) (Collection Date - 07/15/2024) Value Reference Range PSA,Total (Free>4and<10) 1.08 0.00-4.00 - ng/ mL * Examination: G eneral Examination: GENERAL APPEARANCE: w ell developed, well nourished, in no acute distress. HEAD: n ormocephalic, atraumatic. EYES: p upils equal, round, reactive to light and accommodation, sclera non-icteric. EARS: n ormal. ORAL CAVITY: m ucosa moist. THROAT: c lear. NECK/THYROID: n cande supple, full range of motion, no cervical lymphadenopathy, no bruits. SKIN: w arm and dry, no suspicious lesions. HEART: r egular rate and rhythm, S1, S2 normal, 2/6 murmurs. LUNGS: c lear to auscultation bilaterally. ABDOMEN: s oft, nontender, nondistended, bowel sounds present, normal, no organomegaly , no masses palpable. RECTAL EXAM: n ormal tone, no external hemorrhoids, no masses palpable, prostate normal, stool guaiac negative. MALE GENITOURINARY: testes descended bilaterally, no testicular mass. EXTREMITIES: n o clubbing, cyanosis, or edema. NEUROLOGIC: n onfocal, motor strength normal upper and lower extremities, sensory exam intact. PODIATRIC: d iminished pinprick, and normal pulses and light touch. FOOT EXAM: . Assessment: * Assessment: 1. A nnual physical exam - Z00.00 (Primary) 2 . A ortic stenosis, moderate - I35.0 3 . H istory of angioplasty - Z98.62 4 . E ssential hypertension - I10 5 . T ype 2 diabetes, controlled, with neuropathy - E11.40 6 . H ypercholesteremia - E78.00 Plan: * Treatment: 2. A ortic stenosis, moderate Continue Brilinta Tablet, 60 MG, 1 tablet, Orally, Twice a day. Notes: is going to have echo in one year to follow, will continue current regiment 3. H istory of angioplasty Notes: doing well, will continue to monitor 4. E ssential hypertension Continue Spironolactone Tablet, 25 MG, 1 tablet, Orally; C ontinue Valsartan-hydroCHLOROthiazide Tablet, 320-12.5 MG, TAKE 1 TABLET BY MOUTH ONCE DAILY; C ontinue amLODIPine Besylate Tablet, 10 MG, TAKE 1 TABLET BY MOUTH ONCE DAILY. Notes: stbale, will continue current regiment 5. T ype 2 diabetes, controlled, with neuropathy Continue metFORMIN HCl ER Tablet Extended Release 24 Hour, 500 MG, take 1 tablet by mouth daily with evening meal, Orally, twice a day. Notes: doing well on meds. good a1c, will continue current regiment 6. H ypercholesteremia Continue Atorvastatin Calcium Tablet, 80 MG, TAKE 1 TABLET BY MOUTH ONCE DAILY. Notes: stable, at goal, will continue current regiment * Procedure Codes: * Preventive Medicine: Counseling: C are goal follow-up plan: C ounseling for abnormal BMI provided?Yes, Matt gomes Normal BMI Follow-up Geo lewis encouragement to exercise. Diabetes Care Plan: P atient Lifestyle Goals N eeds to maintain diet control.?Treatment Goals A 1C< 7. B arriers N o specific barriers, doing well. S elf-Managment Plan I ncrease light exercise to 3 times a week for 30 minutes. * Follow Up: 6 Months * * Sign off status: Completed true * Provider: Geo Mtz MD Date: 0 08/05/2024 Generated for Van shnaks/Hayes/Mason on: 11/11/2024 05:31 PM EST History and Physical Notes * HPI (History of Present Illness) Category Sub-Category Detail Notes Category Not es Symptom(s) patient is a 74 yo male here for annual visit with review of recent labs and follow up of chronic issues. Depression Screening PHQ-9 Little inte rest or pleasure in doing things: Not at all Feeling down, depressed, or hopeless: No t at all Trouble falling or staying asleep, or sl eeping too much: Not at all Feeling tired or having little energy: N ot at all Poor appetite or overeating: Not at all Feeling bad about yourself o r that you are a failure, or have let yourself or your family down: Not at all Trouble concentrating on thi ngs, such as reading the newspaper or watching television: Not at all Moving or speaking so slowly that other people could have noticed; or the opposite, being so fidgety or restless that you have been moving around a lot more than usual: Not at all Thoughts that you would be b carmencita off or of hurting yourself in some way: Not at all Total Score: 0 Interpretation and Intervention Depression Ildefonso morin Findings: Negative Follow-Up for Depression: : review of PH Q-9 found negative result, no follow-up needed SDOH Questions SDOH Questions In the past year have you been worried about losing housing?: No In the past year have you or any family members you live with been unable to get any of the following when it was really needed? Check all that apply:: None Fall Risk History Have you had any falls with injury i n the past year?: No Have you had two or more falls in the year?: No Communication Needs Communication Needs Does the patient have a hearing impairment: No Does the patient have a vision impairmen t?: Yes If yes, what is the vision impairment?: Glasses Does the patient have a cognition impair ment?: No Examination Category Sub-Category Detail Notes Category Not es General Examination GENERAL APPEARANCE: well dev eloped, well nourished, in no acute distress HEAD: normocephalic, atrau matic EYES: pupils equal, round, reactive to light and accommodation, sclera non-icteric EARS: normal THROAT: clear NECK/THYROID: neck supple, full ra nge of motion, no cervical lymphadenopathy, no bruits HEART: regular rate and rhy thm, S1, S2 normal, 2/6 murmurs LUNGS: clear to auscultatio n bilaterally ABDOMEN: soft, nontender, non distended, bowel sounds present, normal, no organomegaly , no masses palpable NEUROLOGIC: nonfocal, motor stre ngth normal upper and lower extremities, sensory exam intact SKIN: warm and dry, no maxine picious lesions EXTREMITIES: no clubbing, cyanosi s, or edema MALE GENITOURINARY: testes descended carito aterally, no testicular mass RECTAL EXAM: normal tone, no exte rnal hemorrhoids, no masses palpable, prostate normal, stool guaiac negative ORAL CAVITY: mucosa moist FOOT EXAM: Date: 08/05/2024 diminished pinp az and normal pulses and light tough PODIATRIC: diminished pinprick, and normal pulses and light touch
--- OUTSIDE RECORDS SUMMARY | 2025-01-20 05:15 | XMS_ITS ---
Author Organization Kevin Mtz MD Address [address] [place] [phone] Care Team Providers Care Spring Crater Name Role Phone Bibi Kevin Primary Care Provider REASON FOR VISIT HCC Risk Codes Encounters Encounter Location Date Provider Diagnosis Kevin Mtz MD [address] [facility] [address] [place] [phone] 01/20/2025 Kevin Mtz Plan Of Treatment Next Appt Details Provider Name:Kevin ibarra, 09/12/2025 10:30:00 AM, [address] [place] [address], Suite [facility], [place], [place], [phone], Provider Name:Kevin ibarra, 09/12/2025 10:30:00 AM, [address] [place] [address], [address] [place] [address], [phone], Provider Name:Kevin ibarra, 02/10/2026 07:30:00 AM, [address], [address], [place], [phone], Provider Name:Kevin Hernandez fred, 02/17/2026 10:00:00 AM, [address] [facility] [address] [facility] [address] [facility] [address], [address], [place], [phone], Provider Name:Kevin Hernandez fred, 08/03/2026 07:30:00 AM, [address], [address], [place], [phone], Provider Name:Kevin Hernandez minhr, 08/10/2026 10:30:00 AM, [address] [facility] [address], [address], [place], [phone], Progress Notes * Rosalba CLIFFORDOB:1950 ( 75 yo M)Acc No.[id number]:01/20/2025 Patient: Nam LEHMAN :1950 A ge:74 Y S ex:Male Address:[address] [place] [address], [place], [address] * true * Date: Generated for Van shanks/Hayes/Jennifersmitting on: 11/11/2024 05:31 PM EST
--- OUTSIDE RECORDS SUMMARY | 2025-01-27 02:15 | XMS_ITS ---
Author Organization Kevin Mtz MD Address [address] [place], [place] [phone] Care Team Providers Care Research Asst Name Role Phone Bibi Kevin Primary Care Provider Results Component Value Reference Range Notes Liver Panel Reviewed date:01/27/2025 12:45:27 PM Interpretation: Performing Lab:[address] [phone] Notes/Report: Bilirubin Total 0.4 0.0-1.0 mg/dL Bilirubin Direct 0.2 0.0-0.5 mg/dL Aspartate Amino Transferase 29 5-37 U/L Alanine Aminotransferase 25 0-40 U/L Total Protein 7.3 6.5-8.0 g/dL Albumin Level 4.3 3.5-5.0 g/dL Alkaline Phosphatase 93 39-117 U/L Glucose Fasting Reviewed date:01/27/2025 12:43:38 PM Interpretation: Performing Lab:[address] [place] [address] Notes/Report: Glucose Fasting 111 60-99 mg/dL A fasting glucose from 100-125 mg/dl is considered impaired (pre-diabetes). Lipid Panel with Reflex Reviewed date:01/27/2025 12:43:25 PM Interpretation: Performing Lab:[facility], [address] [place] [phone] Notes/Report: Triglycerides 40 <150 mg/dL Desirable Triglyceride: less than 150 mg/dL Borderline High Triglyceride 150-199 mg/dL High Triglyceride: 200-499 mg/dL Very High Triglyceride: greater than or equal to 5OO mg/dL Cholesterol 127 <200 mg/dL Desirable Cholesterol: less than 200 mg/dL Borderline High Cholesterol: 200-239 mg/dL High Cholesterol: greater than 239 mg/dL LDL Cholesterol Calculated 61 <100 mg/dL Desirable LDL: less than 100 mg/dL Near Optimal/Above Optimal LDL: 110-129 mg/dL Borderline High LDL: 130-159 mg/dL High LDL: 160-189 mg/dL Very High LDL: greater than or equal to 190 mg/dL HDL Cholesterol 58 >40 mg/dL Desirable HDL: greater than 40 mg/dL Note: This HDL assay may give artificially low results in patients with liver disease. Hemoglobin A1c Reviewed date:01/27/2025 12:42:22 PM Interpretation: Performing Lab:[facility], [address] [place] [phone] Notes/Report: Hemoglobin A1c % 5.9 <6.0 % [...] average glucose, using the formula of the H8G-Thmfxox Average Glucose study (ADAG), Diabetes Care, Vol.31,#8, Jun. 2007 REASON FOR VISIT FASTING LIPIDS Encounters Encounter Location Date Provider Diagnosis Kevin Mtz MD [address] [place] [address] [address] [place], [place] [phone] 01/27/2025 Kevin Mtz Type 2 diabetes, controlled, 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 and Hypercholesteremia E78.00 Assessments Encounter Date Diagnosis (ICD Code) Assessment Notes Treatment Notes Treatment Clinical Notes Section Notes 01/27/2025 Type 2 diabetes, controlled, with neuropathy (ICD-10 - E11.40) 01/27/2025 Hypercholesteremia (ICD-10 - E78.00) Plan Of Treatment Next Appt Details Provider Name:Kevin Hernandez ier, 09/12/2025 10:30:00 AM, [address] [place] [address], [address], [phone], Provider Name:Kevin Eckertandi ier, 09/12/2025 10:30:00 AM, [address] [place] [address], [address], [phone], Provider Name:Kevin Hernandez minhr, 02/10/2026 07:30:00 AM, [address] [place] [address], [address], [phone], Provider Name:Kevin Hernandez minhr, 02/17/2026 10:00:00 AM, [address] [place] [address], [address], [phone], Provider Name:Kevin Hernandez ier, 08/03/2026 07:30:00 AM, [address] [place] [address], [address], [phone], Provider Name:Kevin Hernandez minhr, 08/10/2026 10:30:00 AM, [address] [place] [address], [address], [phone], Progress Notes * Lissette CLIFFORDilDOB:1950 ( 75 yo M)Acc No.[id number]:01/27/2025 Progress Note Patient: Nam LEHMAN Provider: Geo Mtz MD :1950 A ge:74 Y S ex:Male Date:01/27/2025 Address:[address] [place] [address], [facility] Subjective: * Chief Complaints: * 1 . FASTING LIPIDS. * Medical History: Objective: * Vitals: Assessment: * Assessment: 1. T ype 2 diabetes, controlled, with neuropathy - E11.40 (Primary) 2 . H ypercholesteremia - E78.00 Plan: * Treatment: 2. H ypercholesteremia L AB: Liver Panel (Collection Date & Time - 01/27/2025 07:15 AM) L AB: Glucose Fasting (Collection Date & Time - 01/27/2025 07:15 AM) L AB: Lipid Panel with Reflex (Collection Date & Time - 01/27/2025 07:15 AM) L AB: Hemoglobin A1c (Collection Date & Time - 01/27/2025 07:15 AM) * Procedure Codes: 3 6415 VENIPUNCT, ROUTINE* * * The named appointment provid er may or may not be the originator of this progress note, and it is not deemed complete until electronically signed by the appointment provider. Sign off status: Pending * Provider: Geo Mtz MD Date: 0 01/27/2025 Generated for Van shanks/Hayes/Nenaitting on: 1 11/11/2024 05:33 PM EST
--- OUTSIDE RECORDS SUMMARY | 2025-02-03 05:00 | XMS_ITS ---
Author Organization Kevin Mtz MD Address [address] [place], [place] [id number] Care Team Providers Care Campus Wellness Coordinator Name Role Phone BibiCynthian Primary Care Provider [phone] Allergies No Known Allergies Results Component Value Reference Range Notes Microalbumin, Random Reviewed date:02/03/2025 01:49:57 PM Interpretation: Performing Lab:[facility], [address] [place] [phone] Notes/Report: Creatinine Urine 112.03 Microalbumin Urine 28.0 Microalbum/Creatinine Ratio Ur 24.9 <30 ug/mg cr Albumin/Creatinine Ratio Reference Ranges: Normal: < 30 ug/mg creatinine Microalbuminuria: 30 - 300 ug/mg creatinine Clinical Albuminuria: > 300 ug/mg creatinine UA ClnCatch+Micro w/rflx Cul t Reviewed date:02/03/2025 01:54:17 PM Interpretation: Performing Lab:[facility], [address] [place] [phone] Notes/Report: Urine, Clean Catch Color Urine Yellow Appearance Urine Clear PH 5.0 5.0-9.0 Glucose Urine UA Negative Negative mg/dL Urine Blood Negative Negative Specific [place] - Urine 1.025 1.005-1.025 Urine Protein Negative Neg-Trace mg/dL Urine Ketones Trace Negative mg/dL Nitrite Urine Negative Negative Leukocyte Esterase Urine Negative Negative RBC Urine 0-2 0-2 /HPF WBC Urine 0-5 0-5 /HPF Squamous Epithelial Cell Urine 0-2 0-2 /HPF Bacteria Urine None Seen None Seen Hyaline Casts Urine 0-2 0-2 /LPF REASON FOR VISIT 6 month, woke up today with a sore neck Medications Medication SIG (Take, Route, Frequency, Duration) Notes Start Date End Date Status Ventolin HFA 108 (90 Base) MCG/ACT 1 puff as needed Inhalation every 4 hrs for 90 days 01/20/2020 Not-Taking Tylenol 8 Hour 650 MG 2 tablets as neede d Orally every 8 hrs Not-Taking Spironolactone 25 MG 1 tablet Orally Active amLODIPine Besylate 10 MG TAKE 1 TABLET BY MOUTH ONCE DAILY Active Atorvastatin Calcium 80 MG TAKE 1 TABLET BY MOUTH ONCE DAILY Active Aspir-81 81 MG 1 tablet Orally Once a day Active Fluticasone Propionate 50 MCG/ACT INHALE 1 SPRAY IN EACH NOSTRIL ONCE A DAY for 60 Active Valsartan-hydroCHLOROthiaz jennifer 320-12.5 MG TAKE 1 TABLET BY MOUTH ONCE DAILY for 90 Active Brilinta 60 MG 1 tablet Orally Twic e a day Active metFORMIN HCl ER 500 MG take 1 tablet by mouth daily with evening meal Orally twice a day Active Vital Signs Blood pressure systolic 132 mm Hg 02/04/20 25 Blood pressure diastolic 66 mm Hg 025 Height 74 in 02/03/2025 Weight 199 lbs 02/03/2025 BMI 25.55 kg/m2 02/03/2025 weight is down 8 pounds [facility] e 08-05-24 Encounters Encounter Location Date Provider Diagnosis Kevin Mtz MD [address] [place] [address] Drive [address] [place], [place] [phone] 02/03/2025 Kevin Mtz Type 2 diabetes, controlled, 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 ; Hypercholesteremia E78.00 and Essential hypertension I10 Assessments Encounter Date Diagnosis (ICD Code) Assessment Notes Treatment Notes Treatment Clinical Notes Section Notes 02/03/2025 Type 2 diabetes, controlled, with neuropathy (ICD-10 - E11.40) doing well on meds and exercise 02/03/2025 Hypercholesteremia (ICD-10 - E78.00) 02/03/2025 Essential hypertensi on (ICD-10 - I10) stable, will cntiue current regiment Plan Of Treatment Medication Medication Name Sig Start Date Stop Date Notes Spironolactone 25 MG 1 tablet Orally amLODIPine Besylate 10 MG TAKE 1 TABLET BY MOUTH ONCE DAILY Atorvastatin Calcium 80 MG TAKE 1 TABLET BY MOUTH ONCE DAILY metFORMIN HCl ER 500 MG take 1 tablet by mouth daily with evening meal Orally twice a day Treatment Notes Assessment Notes Type 2 diabetes, controlled, with neurop athy doing well on meds and exercise Essential hypertension stable, will cnti ue current regiment Next Appt Details Provider Name:Kevin ibarra, 09/12/2025 10:30:00 AM, [address] [place] [address], [address], [phone], Provider Name:Kevin ibarra, 09/12/2025 10:30:00 AM, [address] [place] [address], [address], [phone], Provider Name:Kevin ibarra, 02/10/2026 07:30:00 AM, [address] [place] [address], [address], [phone], Provider Name:Kevin ibarra, 02/17/2026 10:00:00 AM, [address] [place] [address], [address], [phone], Provider Name:Kevin ibarra, 08/03/2026 07:30:00 AM, [address] [place] [address], [address], [phone], Provider Name:Kevin ibarra, 08/10/2026 10:30:00 AM, [address] [place] [address], [address], [phone], Progress Notes * Rosalba CLIFFORDOB:1950 ( 75 yo M)Acc No.[id number]:02/03/2025 Progress Notes Patient: Nam LEHMAN Provider: Geo Mtz MD :1950 A ge:75 Y S ex:Male Date:02/03/2025 Address:[address] [place] [address], Mayela ramirez [id number] Subjective: * Chief Complaints: * 6 monthWoke up today with a sore neck * HPI: S ymptom(s): patient is a 75 yo male here for 6 month follow up visit/ hne put him on ketogenic diet. they told him not to worry about cholesterol. D epression Screening: PHQ-9 T houghts that you would be better off or of hurting yourself in some way N ot at all, T otal Score 0 . I nterpretation and Intervention D epression Screening Findings N egative, F ollow-Up for Depression : review of PHQ-9 found negative result, no follow-up needed. * ROS: G eneral/Constitutional: Denies C hills. D enies F atigue. D enies F ever. D enies H eadache. E NT: Denies S ore throat. R espiratory: Denies C ough. D enies S hortness of breath with exertion. D enies S putum production. C ardiovascular: Patient denies c hest pain with exertion, , dyspnea on exertion. G astrointestinal: Denies D iarrhea. D enies N ausea. * Medical History: * Surgical History: * Hospitalization/Major Diagno stic Procedure: * Medications: T akingAspir-81 81 MG Tablet Delayed Release 1 tablet Orally Once a day Fluticasone Propionate 50 MCG/ACT Suspension INHALE 1 SPRAY IN EACH NOSTRIL ONCE A DAY metFORMIN HCl ER 500 MG Tablet Extended Release 24 Hour take 1 tablet by mouth daily with evening meal Orally twice a day Spironolactone 25 MG Tablet 1 tablet Orally amLODIPine Besylate 10 MG Tablet TAKE 1 TABLET BY MOUTH ONCE DAILY Atorvastatin Calcium 80 MG Tablet TAKE 1 TABLET BY MOUTH ONCE DAILY Brilinta 60 MG Tablet 1 tablet Orally Twice a day Valsartan-hydroCHLOROthiazide 320-12.5 MG Tablet TAKE 1 TABLET BY MOUTH ONCE DAILY Taking Aspir-81 81 MG Tablet Delayed Release 1 tablet Orally Once a day Taking Fluticasone Propionate 50 MCG/ACT Suspension INHALE 1 SPRAY IN EACH NOSTRIL ONCE A DAY Taking metFORMIN HCl ER 500 MG Tablet Extended Release 24 Hour take 1 tablet by mouth daily with evening meal Orally twice a day Taking Spironolactone 25 MG Tablet 1 tablet Orally Taking amLODIPine Besylate 10 MG Tablet TAKE 1 TABLET BY MOUTH ONCE DAILY Taking Atorvastatin Calcium 80 MG Tablet TAKE 1 TABLET BY MOUTH ONCE DAILY Taking Brilinta 60 MG Tablet 1 tablet Orally Twice a day Taking Valsartan-hydroCHLOROthiazide 320-12.5 MG Tablet TAKE 1 TABLET BY MOUTH ONCE DAILY Not-Taking/PRNTylenol 8 Hour 650 MG Tablet Extended Release 2 tablets as needed Orally every 8 hrs Ventolin HFA 108 (90 Base) MCG/ACT Aerosol Solution 1 puff as needed Inhalation every 4 hrs Medication List reviewed and reconciled with the patientNot-Taking/PRN Tylenol 8 Hour 650 MG Tablet Extended Release 2 tablets as needed Orally every 8 hrs Not-Taking/PRN Ventolin HFA 108 (90 Base) MCG/ACT Aerosol Solution 1 puff as needed Inhalation every 4 hrs Medication List reviewed and reconciled with the patient * Allergies: N .K.D.A.yes[Allergies Verified] Objective: * Vitals: H t: 74, Wt: 199, BMI:25.55, BP:132/66, Wt-k.27. weight is down 8 pounds since 08-05-24. * P ast Orders: L ab:Liver Panel (Order Date - 01/27/2025) (Collection Date & Time - 01/27/2025 07:15 AM) Value Reference Range Bilirubin Total 0.4 0.0-1.0 - mg/dL Bilirubin Direct 0.2 0.0-0.5 - mg/dL Aspartate Amino Transferase 29 5-37 - U/L Alanine Aminotransferase 25 0-40 - U/L Total Protein 7.3 6.5-8.0 - g/dL Albumin Level 4.3 3.5-5.0 - g/dL Alkaline Phosphatase 93 39-117 - U/L L ab:Glucose Fasting (Order Date - 01/27/2025) (Collection Date & Time - 01/27/2025 07:15 AM) Value Reference Range Glucose Fasting 111 H 60-99 - mg/dL L ab:Lipid Panel with Reflex (Order Date - 01/27/2025) (Collection Date & Time - 01/27/2025 07:15 AM) Value Reference Range Triglycerides 40 <150 - mg/dL Cholesterol 127 <200 - mg/dL LDL Cholesterol Calculated 61 <100 - mg/dL HDL Cholesterol 58 >40 - mg/dL L ab:Hemoglobin A1c (Order Date - 01/27/2025) (Collection Date & Time - 01/27/2025 07:15 AM) Value Reference Range Hemoglobin A1c % 5.9 <6.0 - % Estimated Average Glucose 123 - mg/dL * Examination: G eneral Examination: GENERAL APPEARANCE: a lert, well hydrated, in no distress.? HEAD: n ormocephalic. SKIN: g ood turgor. HEART: 2 /6 murmurs, rubs, gallops, regular rate and rhythm. LUNGS: n o wheezes, rales, rhonchi, good air movement, clear to auscultation bilaterally. Assessment: * Assessment: 1. T ype 2 diabetes, controlled, with neuropathy - E11.40 (Primary) 2 . H ypercholesteremia - E78.00 3 . E ssential hypertension - I10 Plan: * Treatment: 2. H ypercholesteremia Continue Atorvastatin Calcium Tablet, 80 MG, TAKE 1 TABLET BY MOUTH ONCE DAILY. 3. E ssential hypertension Continue Spironolactone Tablet, 25 MG, 1 tablet, Orally; C ontinue amLODIPine Besylate Tablet, 10 MG, TAKE 1 TABLET BY MOUTH ONCE DAILY. Notes: stable, will cntiue current regiment * Procedure Codes: G 2211 Complex e/m visit add on * * Sign off status: Completed true * Provider: Geo Mtz MD Date: 0 02/03/2025 Generated for Van shanks/Hayes/Nenaitting on: 1 11/11/2024 05:32 PM EST History and Physical Notes * HPI (History of Present Illness) Category Sub-Category Detail Notes Category Not es Symptom(s) patient is a 75 yo male here for 6 month follow up visit/ hne put him on ketogenic diet. they told him not to worry about cholesterol Depression Screening PHQ-9 Little inte rest or [...] Q-9 found negative result, no follow-up needed Examination Category Sub-Category Detail Notes Category Not es General Examination GENERAL APPEARANCE: alert, w ell hydrated, in no distress HEAD: normocephalic HEART: 2/6 murmurs, rubs, g allops, regular rate and rhythm LUNGS: no wheezes, rales, r honchi, good air movement, clear to auscultation bilaterally SKIN: good turgor
--- OUTSIDE RECORDS SUMMARY | 2025-07-31 03:30 | XMS_ITS ---
Author Organization Kevin Mtz MD Address [address] [place], [place] [id number] Care Team Providers Care Printing Bindery Assistant Name Role Phone Bibi Kevin Primary Care Provider Results Component Value Reference Range Notes Complete Blood Count Auto Di ff Reviewed date:07/31/2025 12:27:22 PM Interpretation: Performing Lab:[facility], [address] [place] [phone] Notes/Report: White Blood Count 9.5 4.8-10.8 X10*3/uL Red Blood Count 3.74 4.60-5.80 X10*6/uL Hemoglobin 11.4 14.0-18.0 g/dl Hematocrit 34.6 42.0-52.0 % Mean Corpuscular Volume 92.5 80.0-98.0 fL Mean Corpuscular Hemoglobin 30.5 27.0-33.0 pg Mean Corpuscular HGB Conc 32.9 31.0-36.0 g/dl Red Cell Distribution Width 14.4 11.0-16.0 % Platelet Count 236 160-400 X10*3/uL Mean Platelet Volume 11.0 9.4-12.4 fL Neutrophils Percent Auto 68.9 45-73 % Imm Gran Pct Auto 0.3 0.0-0.4 % Lymphocytes Percent Auto 18.2 20-40 % Monocytes Percent Auto 8.4 2-11 % Eosinophils Percent Auto 3.8 0-4 % Basophils Percent Auto 0.4 0-2 % NRBC Pct Auto 0.0 0.0-0.2 /100WBC Neutrophils Absolute Auto 6.6 2.0-8.3 x10*3/u L Imm Gran Abs Auto 0.03 0.00-0.03 X10*3/uL Lymphocytes Absolute Auto 1.7 1.2-4.9 X10*3/u L Monocytes Absolute Auto 0.8 0.1-1.2 X10*3/uL Eosinophils Absolute Auto 0.4 0.0-0.4 X10*3/u L Basophils Absolute Auto 0.0 0.0-0.2 X10*3/uL NRBC Abs Auto 0.000 0.0-0.012 X10*3/uL Comprehensive [place]. Panel Fa st Reviewed date:07/31/2025 04:25:14 PM Interpretation: Performing Lab:[facility], [address] [place] [phone] Notes/Report: Sodium 146 135-145 mmol/L Potassium 4.7 3.3-5.1 mmol/L Chloride 112 96-108 mmol/L Carbon Dioxide 24 22-29 mmol/L Anion Gap 15 12-20 Blood Urea Nitrogen 31 9-16 mg/dL Creatinine 1.12 0.5-1.4 mg/dL Estimated Glomerular Filt Rate > 60 Chronic Kidney Disease: Estimated GFR < 60 mL/min/1.73m2 Severe Kidney Disease: Estimated GFR < 15 mL/min/1.73m2 Glucose Fasting 100 60-99 mg/dL A fasting glucose from 100-125 mg/dl is considered impaired (pre-diabetes). Calcium 9.5 8.4-10.2 mg/dL Bilirubin Total 0.6 0.0-1.0 mg/dL Aspartate Amino Transferase 25 5-37 U/L Alanine Aminotransferase 22 0-40 U/L Total Protein 7.6 6.5-8.0 g/dL Albumin Level 4.8 3.5-5.0 g/dL Alkaline Phosphatase 79 39-117 U/L Lipid Panel Reviewed date:07/31/2025 12:25:42 PM Interpretation: Performing Lab:[address] [phone] Notes/Report: Triglycerides 49 <150 mg/dL Desirable Triglyceride: less than 150 mg/dL Borderline High Triglyceride 150-199 mg/dL High Triglyceride: 200-499 mg/dL Very High Triglyceride: greater than or equal to 5OO mg/dL Cholesterol 144 <200 mg/dL Desirable Cholesterol: less than 200 mg/dL Borderline High Cholesterol: 200-239 mg/dL High Cholesterol: greater than 239 mg/dL LDL Cholesterol Calculated 79 <100 mg/dL Desirable LDL: less than 100 mg/dL Near Optimal/Above Optimal LDL: 110-129 mg/dL Borderline High LDL: 130-159 mg/dL High LDL: 160-189 mg/dL Very High LDL: greater than or equal to 190 mg/dL HDL Cholesterol 56 >40 mg/dL Desirable HDL: greater than 40 mg/dL Note: This HDL assay may give artificially low results in patients with liver disease. PSA,Total (Free>4and<10) Reviewed date:07/31/2025 12:28:34 PM Interpretation: Performing Lab:[address] [phone] Notes/Report: PSA,Total (Free>4and<10) 0.99 0.00-4.00 ng/mL A Free PSA was not [...] Chemiluminescent Microparticle Immunoassay (CMIA) Microalbumin, Random Reviewed date:07/31/2025 12:41:22 PM Interpretation: Performing Lab:[facility] [phone] Notes/Report: Creatinine Urine 75.73 Microalbumin Urine 16.0 Microalbum/Creatinine Ratio Ur 21.1 <30 ug/mg cr Albumin/Creatinine Ratio Reference Ranges: Normal: < 30 ug/mg creatinine Microalbuminuria: 30 - 300 ug/mg creatinine Clinical Albuminuria: > 300 ug/mg creatinine Hemoglobin A1c Reviewed date:07/31/2025 12:24:03 PM Interpretation: Performing Lab:[address] [phone] Notes/Report: Hemoglobin A1c % 6.1 <6.0 % Hemoglobin A1C Reference Range Adults: 4.8 - 6.0 % Non diabetic: < 6.0 % Goal: < 7.0 % Additional Action Suggested: > 8.0 % Note: Hemoglobin A1c results are invalid for patients with abnormal amounts of HbF. Blood transfusions may impact the HbA1c concentration in the patient sample. Estimated Average Glucose 128 eAG = Estimated average glucose which is %A1C expressed as average glucose, using the formula of the K0D-Osuhhow Average Glucose study (ADAG), Diabetes Care, Vol.31,#8, Jun. 2007 UA ClnCatch+Micro w/rflx Cul t Reviewed date:07/31/2025 04:27:22 PM Interpretation: Performing Lab:[address] [phone] Notes/Report: [id number] Urine, Clean Catch Color Urine Yellow Appearance Urine Clear PH 5.5 5.0-9.0 Glucose Urine UA Negative Negative mg/dL Urine Blood Negative Negative Specific [place] - Urine 1.020 1.005-1.025 Urine Protein Negative Neg-Trace mg/dL Urine Ketones Negative Negative mg/dL Nitrite Urine Negative Negative Leukocyte Esterase Urine Negative Negative RBC Urine 0-2 0-2 /HPF WBC Urine 0-5 0-5 /HPF Squamous Epithelial Cell Urine 0-2 0-2 /HPF Bacteria Urine None Seen None Seen Hyaline Casts Urine 0-2 0-2 /LPF REASON FOR VISIT FASTING LABS Immunizations Vaccine Route Administration Date Status Comme nts Influenza High Dose IM Intramuscular 07/31/2025 Administer ed Encounters Encounter Location Date Provider Diagnosis Kevin Mtz MD [address] [place], [place] [id number] 07/31/2025 Kevin Mtz Blood tests for rout ine general physical examination Z00.00 ; Encounter for administration of vaccine Z23 ; Essential hypertension I10 ; Type 2 diabetes, controlled, 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 and Hypercholesteremia E78.00 Assessments Encounter Date Diagnosis (ICD Code) Assessment Notes Treatment Notes Treatment Clinical Notes Section Notes 07/31/2025 Blood tests for routine general physical examination (ICD-10 - Z00.00) 07/31/2025 Encounter for administration of vaccine (ICD-10 - Z23) 07/31/2025 Essential hypertensi on (ICD-10 - I10) 07/31/2025 Type 2 diabetes, controlled, with neuropathy (ICD-10 - E11.40) 07/31/2025 Hypercholesteremia (ICD-10 - E78.00) Plan Of Treatment Next Appt Details Provider Name:Kevin ibarra, 09/12/2025 10:30:00 AM, [address] [place] [address], [address], [phone], Provider Name:Kevin ibarra, 09/12/2025 10:30:00 AM, [address] [place] [address], [address] [place] [address], [phone], Provider Name:Kevin ibarra, 02/10/2026 07:30:00 AM, [address] [place] [address], [address], [phone], Provider Name:Kevin ibarra, 02/17/2026 10:00:00 AM, [address] [place] [address], [address], [phone], Provider Name:Kevin ibarra, 08/03/2026 07:30:00 AM, [address] [place] [address], [address], [phone], Provider Name:Kevin ibarra, 08/10/2026 10:30:00 AM, [address] [place] [address], [address], [phone], Progress Notes * Loren CLIFFORD:1950 ( 75 yo M)Acc No.[id number]:07/31/2025 Progress Note Patient: Nam LEHMAN Provider: Geo Mtz MD :1950 A ge:75 Y S ex:Male Date:07/31/2025 Address:[address] [place] [address], [facility] Subjective: * Chief Complaints: * 1 . FASTING LABS. * Medical History: Objective: * Vitals: Assessment: * Assessment: 1. E ncounter for administration of vaccine - Z23 (Primary) 2 . B lood tests for routine general physical examination - Z00.00 3 . E ssential hypertension - I10 4 . T ype 2 diabetes, controlled, with neuropathy - E11.40 5. H ypercholesteremia - E78.00 Plan: * Treatment: 2. E ssential hypertension L AB: Complete Blood Count Auto Diff (Collection Date & Time - 07/31/2025 07:00 AM) L AB: Comprehensive [place]. Panel Fast (Collection Date & Time - 07/31/2025 07:00 AM) L AB: Lipid Panel (Collection Date & Time - 07/31/2025 07:00 AM) L AB: PSA,Total (Free>4and<10) (Collection Date & Time - 07/31/2025 07:00 AM) L AB: Microalbumin, Random (Collection Date & Time - 07/31/2025 07:00 AM) L AB: Hemoglobin A1c (Collection Date & Time - 07/31/2025 07:00 AM) L AB: UA ClnCatch+Micro w/rflx Cult (Collection Date & Time - 07/31/2025 07:00 AM) 3. T ype 2 diabetes, controlled, with neuropathy L AB: Complete Blood Count Auto Diff (Collection Date & Time - 07/31/2025 07:00 AM) L AB: Comprehensive [place]. Panel Fast (Collection Date & Time - 07/31/2025 07:00 AM) L AB: Lipid Panel (Collection Date & Time - 07/31/2025 07:00 AM) L AB: PSA,Total (Free>4and<10) (Collection Date & Time - 07/31/2025 07:00 AM) L AB: Microalbumin, Random (Collection Date & Time - 07/31/2025 07:00 AM) L AB: Hemoglobin A1c (Collection Date & Time - 07/31/2025 07:00 AM) L AB: UA ClnCatch+Micro w/rflx Cult (Collection Date & Time - 07/31/2025 07:00 AM) 4. H ypercholesteremia L AB: Complete Blood Count Auto Diff (Collection Date & Time - 07/31/2025 07:00 AM) L AB: Comprehensive [place]. Panel Fast (Collection Date & Time - 07/31/2025 07:00 AM) L AB: Lipid Panel (Collection Date & Time - 07/31/2025 07:00 AM) L AB: PSA,Total (Free>4and<10) (Collection Date & Time - 07/31/2025 07:00 AM) L AB: Microalbumin, Random (Collection Date & Time - 07/31/2025 07:00 AM) L AB: Hemoglobin A1c (Collection Date & Time - 07/31/2025 07:00 AM) L AB: UA ClnCatch+Micro w/rflx Cult (Collection Date & Time - 07/31/2025 07:00 AM) * Immunizations: Influenza High Dose : 0.5 mL (Dose No:1) (Route: Intramuscular) given by Di King , Office Staff on Left Deltoid * Procedure Codes: 3 6415 VENIPUNCT, ROUTINE*, 03401 FLU VACC PRSV FREE INC ANTIG, G0008 ADMN FLU VAC NO FEE SCHED SAME DAY * * The named appointment provid er may or may not be the originator of this progress note, and it is not deemed complete until electronically signed by the appointment provider. Sign off status: Pending * Provider: Geo Mtz MD Date: 0 07/31/2025 Generated for Van shanks/Hayes/Mason on: 11/11/2024 05:32 PM EST
--- OUTSIDE RECORDS SUMMARY | 2025-08-07 05:00 | XMS_ITS ---
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 Medications Medication SIG (Take, Route, Frequency, Duration) Notes Start Date End Date Status Fluticasone Propionate 50 MCG/ACT INHALE 1 SPRAY IN EACH NOSTRIL ONCE A DAY for 60 Active amLODIPine Besylate 10 MG TAKE 1 TABLET BY MOUTH ONCE DAILY Active Aspir-81 81 MG 1 tablet Orally Once a day Active Atorvastatin Calcium 80 MG TAKE 1 TABLET BY MOUTH ONCE DAILY Active Tylenol 8 Hour 650 MG 2 tablets as neede d Orally every 8 hrs Not-Taking metFORMIN HCl ER 500 MG TAKE 1 TABLET BY MOUTH TWICE DAILY WITH MEALS Active Tamsulosin HCl 0.4 MG 1 capsule Orally O nce a day for 30 days 08/07/2025 Active Ventolin HFA 108 (90 Base) MCG/ACT 1 puff as needed Inhalation every 4 hrs for 90 days 01/20/2020 Not-Taking Spironolactone 25 MG 1 tablet Orally Active Valsartan-hydroCHLOROthiaz jennifer 320-12.5 MG TAKE 1 TABLET BY MOUTH ONCE DAILY Active Social History Tobacco Use: Social History [...] Problem Status W/U Status Risk Notes Problem Prostatism (69236185) Prostatism (N40.0) Active confirmed Vital Signs Blood pressure systolic 130 mm Hg 08/07/20 25 Blood pressure diastolic 54 mm Hg 025 Height 74 in 08/07/2025 Weight 203 lbs 08/07/2025 BMI 26.06 kg/m2 08/07/2025 Encounters Encounter Location Date Provider Diagnosis Kevin Mtz MD [address] [place] [address] Drive [address] [place] [phone] 08/07/2025 Kevin Mtz Annual physical exam Z00.00 ; Anemia D64.9 ; Nocturia R35.1 ; Prostatism N40.0 ; Elevated BUN R79.9 ; Type 2 diabetes, controlled, 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 ; Hypercholesteremia E78.00 ; Colon cancer screening Z12.11 ; Depression screening Z13.31 and Essential hypertension I10 Assessments Encounter Date Diagnosis (ICD Code) Assessment Notes Treatment Notes Treatment Clinical Notes Section Notes 08/07/2025 Annual physical exam (ICD-10 - Z00.00) labs reviewed and discussed with patient 08/07/2025 Anemia (ICD-10 - D64.9) stable, will continue to monitor, future labs ordered 08/07/2025 Nocturia (ICD-10 - R35.1) 08/07/2025 Prostatism (ICD-10 - N40.0) patient verbalized understanding of medication and directions for use 08/07/2025 Elevated BUN (ICD-10 - R79.9) will continue to monitor 08/07/2025 Type 2 diabetes, controlled, with neuropathy (ICD-10 - E11.40) stable, will continue currenrt regiment 08/07/2025 Hypercholesteremia (ICD-10 - E78.00) stable, will continue current regiment 08/07/2025 Colon cancer screening (ICD-10 - Z12.11) 08/07/2025 Depression screening (ICD-10 - Z13.31) 08/07/2025 Essential hypertension (ICD-10 - I10) Plan Of Treatment Medication Medication Name Sig Start Date Stop Date Notes amLODIPine Besylate 10 MG TAKE 1 TABLET BY MOUTH ONCE DAILY Atorvastatin Calcium 80 MG TAKE 1 TABLET BY MOUTH ONCE DAILY metFORMIN HCl ER 500 MG TAKE 1 TABLET BY MOUTH TWICE DAILY WITH MEALS Tamsulosin HCl 0.4 MG 1 capsule Orally O nce a day for 30 days 08/07/2025 Spironolactone 25 MG 1 tablet Orally Valsartan-hydroCHLOROthiazid e 320-12.5 MG TAKE 1 TABLET BY MOUTH ONCE DAILY Treatment Notes Assessment Notes Annual physical exam labs reviewed and d iscussed with patient Anemia stable, will continu e to monitor, future labs ordered Prostatism patient verbalized u nderstanding of medication and directions for use Elevated BUN will continue to mon itor Type 2 diabetes, controlled, with neurop athy stable, will continue currenrt regiment Hypercholesteremia stable, will continu e current regiment Pending Test Test Name Order Date Complete Blood Count Auto Diff Blood Urea Nitrogen 08/07/2025 Creatinine 08/07/2025 IRON PROFILE 08/07/2025 Vitamin B12 and Folate 08/07/2025 Next Appt Details Follow Up: 6 Months, Reason: Provider Name:Kevin ibarra, 09/12/2025 10:30:00 AM, [address], [address], [place], [place], [phone], Provider Name:Kevin Hernandez ier, 09/12/2025 10:30:00 AM, [address], [address], [place], [phone], Provider Name:Kevin Eckertandi ier, 02/10/2026 07:30:00 AM, [address] [place] [address], [address], [place], [place], [phone], Provider Name:Kevin Barrios Mary ier, 02/17/2026 10:00:00 AM, [address] [place] [address], Suite [facility], [place], [phone], Provider Name:Kevin Eckertandi ier, 08/03/2026 07:30:00 AM, [address] [place] [address], Suite [facility], [place], [phone], Provider Name:Kevin Eckertandi wilkinsonr, 08/10/2026 10:30:00 AM, [address] [place] [address], Suite [facility], [place], [place], [phone], Progress Notes * Rosalba CLIFFORDOB:1950 ( 75 yo M)Acc No.[id number]:08/07/2025 Progress Notes Patient: Nam LEHMAN Provider: Geo Mtz MD :1950 A ge:75 Y S ex:Male Date:08/07/2025 Address:[address] [place], [place] [phone] Subjective: * Chief Complaints: * A NNUAL EXAMC Risk codes needed: 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 S ymptom(s): patient is a 75 yo male here for annual visit with review of recent labs and follow up of chronic issues. * ROS: G eneral/Constitutional: Change in appetite d enies. C hills d enies. F ever d enies. O phthalmologic: Blurred vision d enies. D ischarge d enies. P ain d enies. E NT: Decreased hearing d enies. S ore throat d enies.?Swollen glands d enies. E ndocrine: Cold intolerance [...] F requent urination d enies. M usculoskeletal: Painful joints d enies. W eakness d enies. ? S kin: Dry skin d enies. I [...] frequency:, 1-2 cups per day. Children: yes. Community involvements: no. Exercise: yes, walking dogs 7 days a wk, about 3 hours a day,. Home smoke detector use: yes. Housing: owning. Living with: spouse. Marital status: . Occupation: works part-time. Pets: none. * Medications: T akingAspir-81 81 MG Tablet Delayed Release 1 tablet Orally Once a day Fluticasone Propionate 50 MCG/ACT Suspension INHALE 1 SPRAY IN EACH NOSTRIL ONCE A DAY Valsartan-hydroCHLOROthiazide 320-12.5 MG Tablet TAKE 1 TABLET BY MOUTH ONCE DAILY Spironolactone 25 MG Tablet 1 tablet Orally metFORMIN HCl ER 500 MG Tablet Extended Release 24 Hour TAKE 1 TABLET BY MOUTH TWICE DAILY WITH MEALS amLODIPine Besylate 10 MG Tablet TAKE 1 TABLET BY MOUTH ONCE DAILY Atorvastatin Calcium 80 MG Tablet TAKE 1 TABLET BY MOUTH ONCE DAILY Taking Aspir-81 81 MG Tablet Delayed Release 1 tablet Orally Once a day Taking Fluticasone Propionate 50 MCG/ACT Suspension INHALE 1 SPRAY IN EACH NOSTRIL ONCE A DAY Taking Valsartan-hydroCHLOROthiazide 320-12.5 MG Tablet TAKE 1 TABLET BY MOUTH ONCE DAILY Taking Spironolactone 25 MG Tablet 1 tablet Orally Taking metFORMIN HCl ER 500 MG Tablet Extended Release 24 Hour TAKE 1 TABLET BY MOUTH TWICE DAILY WITH MEALS Taking amLODIPine Besylate 10 MG Tablet TAKE 1 TABLET BY MOUTH ONCE DAILY Taking Atorvastatin Calcium 80 MG Tablet TAKE 1 TABLET BY MOUTH ONCE DAILY Not-Taking/PRNTylenol 8 Hour 650 MG Tablet Extended Release 2 tablets as needed Orally every 8 hrs Ventolin HFA 108 (90 Base) MCG/ACT Aerosol Solution 1 puff as needed Inhalation every 4 hrs Not-Taking/PRN Tylenol 8 Hour 650 MG Tablet Extended Release 2 tablets as needed Orally every 8 hrs Not-Taking/PRN Ventolin HFA 108 (90 Base) MCG/ACT Aerosol Solution 1 puff as needed Inhalation every 4 hrs DiscontinuedBrilinta 60 MG Tablet 1 tablet Orally Twice a day Medication List reviewed and reconciled with the patientDiscontinued Brilinta 60 MG Tablet 1 tablet Orally Twice a day Medication List reviewed and reconciled with the patient * Allergies: N .K.D.A.yes[Allergies Verified] Objective: * Vitals: H t: 74, Wt: 203, BMI:26.06, BP:130/54, Wt-k.08. * P ast Orders: L ab:Microalbumin, Random (Order Date - 07/31/2025) (Collection Date & Time - 07/31/2025 07:00 AM) Value Reference Range Creatinine Urine 75.73 - mg/dL Microalbumin Urine 16.0 - mg/L Microalbum Creatinine Ratio Ur 21.1 <30 - ug/ mg cr L ab:Hemoglobin A1c (Order Date - 07/31/2025) (Collection Date & Time - 07/31/2025 07:00 AM) Value Reference Range Hemoglobin A1c % 6.1 H <6.0 - % Estimated Average Glucose 128 - mg/dL L ab:Complete Blood Count Auto Diff (Order Date - 07/31/2025) (Collection Date & Time - 07/31/2025 07:00 AM) Value Reference Range White Blood Count 9.5 4.8-10.8 - X10*3/uL Red Blood Count 3.74 L 4.60-5.80 - X10*6/uL Hemoglobin 11.4 L 14.0-18.0 - g/dl Hematocrit 34.6 L 42.0-52.0 - % Mean Corpuscular Volume 92.5 80.0-98.0 - fL Mean Corpuscular Hemoglobin 30.5 27.0-33.0 - pg Mean Corpuscular HGB Conc 32.9 31.0-36.0 - g/ dl Red Cell Distribution Width 14.4 11.0-16.0 - % Platelet Count 236 160-400 - X10*3/uL Mean Platelet Volume 11.0 9.4-12.4 - fL Neutrophils Percent Auto 68.9 45-73 - % Imm Gran Pct Auto 0.3 0.0-0.4 - % Lymphocytes Percent Auto 18.2 L 20-40 - % Monocytes Percent Auto 8.4 2-11 - % Eosinophils Percent Auto 3.8 0-4 - % Basophils Percent Auto 0.4 0-2 - % NRBC Pct Auto 0.0 0.0-0.2 - /100WBC Neutrophils Absolute Auto 6.6 2.0-8.3 - x10* 3/uL Imm Gran Abs Auto 0.03 0.00-0.03 - X10*3/uL Lymphocytes Absolute Auto 1.7 1.2-4.9 - X10* 3/uL Monocytes Absolute Auto 0.8 0.1-1.2 - X10*3/ uL Eosinophils Absolute Auto 0.4 0.0-0.4 - X10* 3/uL Basophils Absolute Auto 0.0 0.0-0.2 - X10*3/ uL NRBC Abs Auto 0.000 0.0-0.012 - X10*3/uL L ab:UA ClnCatch+Micro w/rflx Cult (Order Date - 07/31/2025) (Collection Date & Time - 07/31/2025 07:00 AM) Value Reference Range Color Urine Yellow - Appearance Urine Clear - PH 5.5 5.0-9.0 - Glucose Urine UA Negative Negative - mg/dL Urine Blood Negative Negative - Specific [place] - Urine 1.020 1.005-1.025 - Urine Protein Negative Neg-Trace - mg/dL Urine Ketones Negative Negative - mg/dL Nitrite Urine Negative Negative - Leukocyte Esterase Urine Negative Negative - RBC Urine 0-2 0-2 - /HPF WBC Urine 0-5 0-5 - /HPF Squamous Epithelial Cell Urine 0-2 0-2 - /HP F Bacteria Urine None Seen None Seen - Hyaline Casts Urine 0-2 0-2 - /LPF L ab:Comprehensive [place]. Panel Fast (Order Date - 07/31/2025) (Collection Date & Time - 07/31/2025 07:00 AM) Value Reference Range Sodium 146 H 135-145 - mmol/L Bilirubin Total 0.6 0.0-1.0 - mg/dL Aspartate Amino Transferase 25 5-37 - U/L Alanine Aminotransferase 22 0-40 - U/L Total Protein 7.6 6.5-8.0 - g/dL Albumin Level 4.8 3.5-5.0 - g/dL Alkaline Phosphatase 79 39-117 - U/L Potassium 4.7 3.3-5.1 - mmol/L Chloride 112 H 96-108 - mmol/L Carbon Dioxide 24 22-29 - mmol/L Anion Gap 15 12-20 - Blood Urea Nitrogen 31 H 9-16 - mg/dL Creatinine 1.12 0.5-1.4 - mg/dL Estimated Glomerular Filt Rate > 60 - Glucose Fasting 100 H 60-99 - mg/dL Calcium 9.5 8.4-10.2 - mg/dL L ab:Lipid Panel (Order Date - 07/31/2025) (Collection Date & Time - 07/31/2025 07:00 AM) Value Reference Range Triglycerides 49 <150 - mg/dL Cholesterol 144 <200 - mg/dL LDL Cholesterol Calculated 79 <100 - mg/dL HDL Cholesterol 56 >40 - mg/dL L ab:PSA,Total (Free>4and<10) (Order Date - 07/31/2025) (Collection Date & Time - 07/31/2025 07:00 AM) Value Reference Range PSA,Total (Free>4and<10) 0.99 0.00-4.00 - ng/ mL * Examination: G [...] egular rate and rhythm, S1, S2 normal, , grade 2/6 systolic murmur at left sternal border. LUNGS: c lear to auscultation bilaterally. ABDOMEN: s oft, nontender, nondistended, bowel sounds present, normal, no organomegaly , no masses palpable. RECTAL EXAM: n ormal tone, no external hemorrhoids, no masses palpable, prostate normal, stool guaiac negative. MALE GENITOURINARY: c ircumcised, testes descended bilaterally, no testicular mass. EXTREMITIES: n o clubbing, cyanosis, or edema. NEUROLOGIC: n onfocal, motor strength normal upper and lower extremities, sensory exam intact. Assessment: * Assessment: 1. A nnual physical exam - Z00.00 (Primary) 2 . A nemia - D64.9 ?3. N octuria - R35.1 4 . P rostatism - N40.0 5 . E levated BUN - R79.9 6 . T ype 2 diabetes, controlled, with neuropathy - E11.40 7. H ypercholesteremia - E78.00 8 . C olon cancer screening - Z12.11 9 . D epression screening - Z13.31 1 0. E ssential hypertension - I10 Plan: * Treatment: 2. A nemia L AB: Complete Blood Count Auto Diff (Ordered for 09/04/2025) L AB: IRON PROFILE (Ordered for 09/04/2025) L AB: Vitamin B12 and Folate (Ordered for 09/04/2025) Notes: stable, will continue to monitor, future labs ordered 3. P rostatism Start Tamsulosin HCl Capsule, 0.4 MG, 1 capsule, Orally, Once a day, 30 days, 30, Refills 3. ? Notes: patient verbalized understanding of medication and directions for use 4. E levated BUN Notes: will continue to monitor 5. T ype 2 diabetes, controlled, with neuropathy Continue metFORMIN HCl ER Tablet Extended Release 24 Hour, 500 MG, TAKE 1 TABLET BY MOUTH TWICE DAILY WITH MEALS. Notes: stable, will continue currenrt regiment 6. H ypercholesteremia Continue Atorvastatin Calcium Tablet, 80 MG, TAKE 1 TABLET BY MOUTH ONCE DAILY. Notes: stable, will continue current regiment 7. C olon cancer screening L AB: Occult Blood, Stool, Guaiac (Collection Date & Time - 08/07/2025) N egative Value Reference Range O ccult Blood, Stool, Guaiac Neg 8.?Essential hypertension? Continue Valsartan-hydroCHLOROthiazide Tablet, 320-12.5 MG, TAKE 1 TABLET BY MOUTH ONCE DAILY;?Continue Spironolactone Tablet, 25 MG, 1 tablet, Orally;?Continue amLODIPine Besylate Tablet, 10 MG, TAKE 1 TABLET BY MOUTH ONCE DAILY.?? * Procedure Codes: 8 4210 TEST FOR BLOOD, FECES * Preventive Medicine: Diabetes Care Plan: P atient Lifestyle Goals N eeds to maintain diet control.?Treatment Goals A 1C< 7. B arriers N o specific barriers, doing well. S elf-Managment Plan I ncrease light exercise to 3 times a week for 30 minutes. E xpected Outcome maintaining stable blood sugar levels within a target range. * Follow Up: 6 Months * * Sign off status: Completed true * Provider: Geo Mtz MD Date: Generated for Van shanks/Hayes/Mason on: 11/11/2024 05:33 PM EST History and Physical Notes * HPI (History of Present Illness) Category Sub-Category Detail Notes Category Not es Symptom(s) patient is a 75 yo male here for annual visit with review of recent labs and follow up of chronic issues Depression Screening PHQ-9 Little inte rest or [...] rate and rhy thm, S1, S2 normal, , grade 2/6 systolic murmur at left sternal border LUNGS: clear to auscultatio n bilaterally ABDOMEN: soft, nontender, non distended, bowel sounds present, normal, no organomegaly , no masses palpable NEUROLOGIC: nonfocal, motor stre ngth normal upper and lower extremities, sensory exam intact SKIN: warm and dry, no maxine picious lesions EXTREMITIES: no clubbing, cyanosi s, or edema MALE GENITOURINARY: circumcised, testes descended bilaterally, no testicular mass RECTAL EXAM: normal tone, no exte rnal hemorrhoids, no masses palpable, prostate normal, stool guaiac negative ORAL CAVITY: mucosa moist
--- OUTSIDE RECORDS SUMMARY | 2025-09-01 06:45 | XMS_ITS ---
Author Organization Kevin Mtz MD Address [address] [place] [phone] Care Team Providers Care Center Medical Director Name Role Phone Kevin Mtz Primary Care Provider Allergies No Known Allergies REASON FOR VISIT Video [phone], c/o headache chills, muscle pain, runny nose head and chest congestion x 4 days, Patient thinks he has Covid but tested negative Medications Medication SIG (Take, Route, Frequency, Duration) Notes Start Date End Date Status amLODIPine Besylate 10 MG TAKE 1 TABLET BY MOUTH ONCE DAILY Active metFORMIN HCl ER 500 MG TAKE 1 TABLET BY MOUTH TWICE DAILY WITH MEALS Active Ventolin HFA 108 (90 Base) MCG/ACT 1 puff as needed Inhalation every 4 hrs for 90 days 01/20/2020 Not-Taking Tylenol 8 Hour 650 MG 2 tablets as neede d Orally every 8 hrs Not-Taking Atorvastatin Calcium 80 MG TAKE 1 TABLET BY MOUTH ONCE DAILY Active Spironolactone 25 MG 1 tablet Orally Active Valsartan-hydroCHLOROthiaz jennifer 320-12.5 MG TAKE 1 TABLET BY MOUTH ONCE DAILY Active Tamsulosin HCl 0.4 MG 1 capsule Orally O nce a day for 30 days 08/07/2025 Active Fluticasone Propionate 50 MCG/ACT INHALE 1 SPRAY IN EACH NOSTRIL ONCE A DAY for 60 Active Aspir-81 81 MG 1 tablet Orally Once a day Active Oseltamivir Phosphate 75 MG 1 capsule Orally Twice a day for 5 day(s) 09/01/2025 Active Vital Signs Height 74 in 09/01/2025 Weight 196 lbs 09/01/2025 BMI 25.16 kg/m2 09/01/2025 weight at home is 196 BP not taken no temp Encounters Encounter Location Date Provider Diagnosis Kevin Mtz MD [address] [place] [phone] 09/01/2025 Kevin Mtz Influenza J11.1 Assessments Encounter Date Diagnosis (ICD Code) Assessment Notes Treatment Notes Treatment Clinical Notes Section Notes 09/01/2025 Influenza (ICD-10 - J11.1) patient verbalized understyanding of medication and directions for use Plan Of Treatment Medication Medication Name Sig Start Date Stop Date Notes Oseltamivir Phosphate 75 MG 1 capsule Or ally Twice a day for 5 day(s) 09/01/2025 Treatment Notes Assessment Notes Influenza patient verbalized u nderstyanding of medication and directions for use Next Appt Details Provider Name:Kevin ibarra, 09/12/2025 10:30:00 AM, [address] [place] [address], [phone], Provider Name:Kevin ibarra, 09/12/2025 10:30:00 AM, [address] [place] [address], [phone], Provider Name:Kevin ibarra, 02/10/2026 07:30:00 AM, [address] [place] [address], [phone], Provider Name:Kevin ibrara, 02/17/2026 10:00:00 AM, [address] [place] [address], [phone], Provider Name:Kevin ibarra, 08/03/2026 07:30:00 AM, [address], [address], [place], [place], [phone], Provider Name:Kevin Hernandez ier, 08/10/2026 10:30:00 AM, [address], [address], [place], [phone], Progress Notes * Lissette CLIFFORDChinoOB:1950 ( 75 yo M)Acc No.[id number]:09/01/2025 Patient: Nam LEHMAN Provider: Geo Mtz MD :1950 A ge:75 Y S ex:Male Date:09/01/2025 Address:[address] [place] [address], [facility] Subjective: * Chief Complaints: * V ideo [phone]/o headache chills, muscle pain, runny nose head and chest congestion x 4 daysPatient thinks he has Covid but tested negative * HPI: S ymptom(s): patient is a [address] [facility], here as emergency. thinks he has covid. test was negative. flu is positive. has aches pains and balance problem. Telehealth L ocation of provider rendering services: 1 [address] [facility], [address], ocation of patient: a t address listed in demographics for today's visit, P atient identification confirmed using: BRIAN [place] ame, T elehealth method: T elephone only. Patient not visible to care provider., C onsent: P atient verbally consented to treatment, Patient verbally consented to billing insurance company, Patient informed of any privacy concerns related to method of visit, T otal time spend talking with patient (minutes) 1 2. F all Risk: History H ave you had any falls with injury in the past year? Y es Fell during the night getting up to go to the bathroom did hit head on dresser. * ROS: G eneral/Constitutional: Admits C hills. A dmits F atigue. D enies F ever. D enies H eadache. E NT: Denies S ore throat. R espiratory: Ortega Sepulveda ough. D enies S hortness of breath at rest. D enies S hortness of breath with exertion. G astrointestinal: Ortega D iarrhea. D enies N ausea. * Medical History: * Surgical History: * Hospitalization/Major Diagno stic Procedure: * Medications: T akingAspir-81 81 MG Tablet Delayed Release 1 tablet Orally Once a day Fluticasone Propionate 50 MCG/ACT Suspension INHALE 1 SPRAY IN EACH NOSTRIL ONCE A DAY Tamsulosin HCl 0.4 MG Capsule 1 capsule Orally Once a day Valsartan-hydroCHLOROthiazide 320-12.5 MG Tablet TAKE [...] IN EACH NOSTRIL ONCE A DAY Taking Tamsulosin HCl 0.4 MG Capsule 1 capsule Orally Once a day Taking Valsartan-hydroCHLOROthiazide 320-12.5 MG Tablet [...] Objective: * Vitals: H t: 74, Wt: 196, BMI:25.16, Wt-k.91. weight at home is 196 BP not taken no temp. Assessment: * Assessment: 1. I nfluenza - J11.1 (Primary) Plan: * Treatment: * Procedure Codes: * * Sign off status: Completed true * Provider: Geo Mtz MD Date: 1 Generated for Van shanks/Hayes/Nenaitting on: 11/11/2024 05:32 PM EST History and Physical Notes * HPI (History of Present Illness) Category Sub-Category Detail Notes Category Not es Symptom(s) Telehealth Location of [facility] rendering services:: [address], [address] Location of patient:: at address listed in demographics for today's visit Patient identification confirmed using:: Name, Telehealth method:: Telephone only. Madelyn ent not visible to care provider. Consent:: Patient verbally c onsented to treatment, Patient verbally consented to billing insurance company, Patient informed of any privacy concerns related to method of visit Total time spend talking with patient (m inutes): 12 Fall Risk History Have you had any falls with injury in the past year?: Yes Fell during the night getting up to go to the bathroom did hit head on dresser
--- OUTSIDE RECORDS SUMMARY | 2025-09-04 08:21 | XMS_ITS ---
Author Organization Kevin Mtz MD Address [address] [place] [phone] Care Team Providers Care Spent Grain Dryer Name Role Phone Bibi Kevin Primary Care Provider REASON FOR VISIT ER Encounters Encounter Location Date Provider Diagnosis Kevin Mtz MD [address] [facility] [address] [place] [phone] 09/04/2025 Kevin Mtz Plan Of Treatment Next Appt Details Provider Name:Kevin ibarra, 09/12/2025 10:30:00 AM, [address] [place] [address], Suite [facility], [place], [place], [phone], Provider Name:Kevin ibarra, 09/12/2025 10:30:00 AM, [address] [place] [address], [address], [phone], Provider Name:Kevin ibarra, 02/10/2026 07:30:00 AM, [address], [address], [place], [phone], Provider Name:Kevin Hernandez fred, 02/17/2026 10:00:00 AM, [address], [address], [place], [phone], Provider Name:Kevin Hernandez minhr, 08/03/2026 07:30:00 AM, [address], [address], [place], [phone], Provider Name:Kevin Hernandez minhr, 08/10/2026 10:30:00 AM, [address], [address], [place], [phone], Progress Notes * Rosalba CLIFFORDOB:1950 ( 75 yo M)Acc No.[id number]:09/04/2025 Patient: Lobito SUNGALEXNam :1950 A ge:75 Y S ex:Male Address:[address] [place] [address], [place], [address] * true * Date: Generated for Van shanks/Hayes/eTransmitting on: 11/11/2024 05:32 PM EST
[2025-09-11] VITALS (15 sets, daily range): BP systolic 67–186; BP diastolic 30–75; PULSE 89–121; RESP 12–20; TEMP 36.9–38.9; O2SAT 94–99; BMI 24.5
--- NOTE | ~2025-09-11 | XR_ITS ---
EXAMINATION: XR CHEST CLINICAL INFORMATION: weakness COMPARISON: Previous chest x-ray most recently in August 2025 TECHNIQUE: 2 views of the chest were obtained. FINDINGS: Similar increased opacities in both upper lobes. This may represent superimposition of bone and vascular markings. There are symmetric nodules at both lung bases probably representing nipple shadows. Increased right central hilar bronchovascular markings. This may represent airways disease. No focal consolidation. No pleural effusion or pneumothorax. Cardiac and mediastinal contours are stable. Degenerative changes of spine and left shoulder. Partially visualized gastric lap band. XR/XR chest 2V IMPRESSION: Increased right central bronchovascular markings questionable for airways disease. Similar opacities in both upper lobes may represent represent summation of bone and vascular structures and small symmetric nodules at both lung bases that may represent nipple shadows. Recommend chest x-ray or chest CT follow-up. Electronically signed by: Delma Fry MD 09/11/2025 02:17 PM [facility]
--- NOTE | ~2025-09-11 | XR_ITS ---
EXAMINATION: XR CHEST CLINICAL INFORMATION: Reassess central infiltrates COMPARISON: September 12, 2025. TECHNIQUE: Frontal view of the chest was obtained. FINDINGS: Submitted for interpretation on 09/15/2025 at 8:38 AM. Bilateral multifocal patchy opacities with pulmonary reticular pattern. No pleural effusion or pneumothorax. Cardiomediastinal silhouette size is normal with a round cardiac apex. Multilevel spondylosis. Degenerative changes in the shoulders. XR/XR chest 1V IMPRESSION: Overall improved aeration since prior exam suggesting chronic interstitial lung disease with the mild interstitial lung edema. Superimposed acute small airway inflammatory versus infectious process cannot be excluded. Electronically signed by: Jerry Segal MD 09/15/2025 08:39 AM [facility]
--- NOTE | ~2025-09-11 | US_ITS ---
CLINICAL HISTORY: swelling, fever, r/o DVT Bilateral lower extremity venous duplex ultrasound. Comparison: None Findings: Exam was performed using grayscale ultrasound with assistance of color and spectral Doppler. Bilateral common femoral, femoral, popliteal, and deep femoral veins are patent and free of thrombus. The veins are normally compressible and have normal phasic flow and augmentation response. Visualized calf veins are patent. Greater saphenous veins are unremarkable. No Be's cyst is visualized. Incidental note of sluggish flow in bilateral popliteal veins. Impression: 1. No deep vein thrombosis in bilateral lower extremities. 2. Rouleaux flow of bilateral popliteal veins. This document has been electronically signed by: Eliana Alvarez MD on 09/14/2025 16:28:13
--- NOTE | ~2025-09-11 | CT_ITS ---
CLINICAL HISTORY: SIRS unknown source CT abdomen and pelvis without contrast Comparison: None provided Findings: Mild dependent atelectasis. Liver, gallbladder, pancreas, spleen, and adrenal glands are within normal limits. No hydronephrosis. Nonspecific mild bilateral perinephric stranding. Small hiatal hernia. Gastric lap band in place.Moderate stool burden. No bowel obstruction, pneumatosis or pneumoperitoneum. Normal appendix. Aortic atherosclerosis. No aneurysm. Prostatomegaly. Excreted contrast in the urinary bladder. Degenerative changes of the spine. Chronic appearing superior endplate compression fracture of L3. IMPRESSION: 1. No acute intraabdominal or pelvic pathology. This document has been electronically signed by: Monica De MD on 09/11/2025 22:53:13
--- NOTE | ~2025-09-11 | CT_ITS ---
CLINICAL HISTORY: weakness, lung infxn, PE? CT angiography chest with contrast. 3D Postprocessing. Comparison: CR/SR - XR CHEST 2 VIEWS - 09/11/25 13:44 EST CR/SR - XR CHEST 1 VIEW - 09/02/25 09:46 EDT Findings: Normal heart size. Normal RV/LV ratio. Aortic and coronary atherosclerosis. No aneurysm. No pulmonary artery filling defects. Small hiatal hernia. Gastric lap band in place. Wall thickening of the esophagus. 5 mm peripherally calcified nodule in the left thyroid lobe. Mild dependent atelectasis. No consolidation, pleural effusion, or pneumothorax. No acute findings in the visualized upper abdomen. Chronic left rib fractures. Degenerative changes of the spine. Diffuse idiopathic skeletal hyperostosis. No acute fracture. IMPRESSION: 1. No pulmonary embolus. No evidence of pneumonia. 2. Esophageal wall thickening, this could be reflux esophagitis. Consider follow-up with gastroenterology for further evaluation. This document has been electronically signed by: Monica De MD on 09/11/2025 18:32:04
--- NOTE | ~2025-09-11 | XR_ITS ---
EXAMINATION: XR CHEST 1 VIEW HISTORY: Sudden hypoxia in 70s COMPARISON: Comparison is made with the prior examination dated 09/11/2025. FINDINGS: Two AP portable views of the chest performed at 8:03 AM are submitted. There is no pulmonary vascular prominence with perihilar airspace opacities and curly B-lines, consistent with pulmonary edema. There is no pleural effusion or pneumothorax. The heart is normal in size. There is degenerative disc disease of the spine. XR/XR chest 1V IMPRESSION: Pulmonary edema. Electronically signed by: Pee Gilliland MD 09/12/2025 08:16 AM [facility]
--- OUTSIDE RECORDS SUMMARY | 2025-09-11 07:45 | XMS_ITS ---
Author Organization Kevin Mtz MD Address [address] [place] [phone] Care Team Providers Care Final Inspector Shuttle Name Role Phone Kevin Mtz Primary Care Provider REASON FOR VISIT temp no energy feels like he is going to faint home alone, [phone], Patient to call the ambulance per Dr Mtz he is also calling his at work. Telehealth was not done Medications Medication SIG (Take, Route, Frequency, Duration) Notes Start Date End Date Status amLODIPine Besylate 10 MG TAKE 1 TABLET BY MOUTH ONCE DAILY Active Atorvastatin Calcium 80 MG TAKE 1 TABLET BY MOUTH ONCE DAILY Active Oseltamivir Phosphate 75 MG 1 capsule Orally Twice a day for 5 day(s) 09/01/2025 Active Tylenol 8 Hour 650 MG 2 tablets as neede d Orally every 8 hrs Not-Taking Ventolin HFA 108 (90 Base) MCG/ACT 1 puff as needed Inhalation every 4 hrs for 90 days 01/20/2020 Not-Taking metFORMIN HCl ER 500 MG TAKE 1 TABLET BY MOUTH TWICE DAILY WITH MEALS Active Fluticasone Propionate 50 MCG/ACT INHALE 1 SPRAY IN EACH NOSTRIL ONCE A DAY for 60 Active Tamsulosin HCl 0.4 MG 1 capsule Orally O nce a day for 30 days 08/07/2025 Active Valsartan-hydroCHLOROthiaz jennifer 320-12.5 MG TAKE 1 TABLET BY MOUTH ONCE DAILY Active Spironolactone 25 MG 1 tablet Orally Active Metoprolol Succinate 25 MG 1 capsule Ora lly Once a day Active Eliquis 5 MG as directed Orally Active Aspir-81 81 MG 1 tablet Orally Once a day Active Encounters Encounter Location Date Provider Diagnosis Kevin Mtz MD [address] [place], [place] [address]te [address] [place] [address] [phone] 09/11/2025 Kevin Mtz Plan Of Treatment Next Appt Details Provider Name:Kevin ibarra, 09/12/2025 10:30:00 AM, [address] [place] [address], [address], [phone], Provider Name:Kevin ibarra, 09/12/2025 10:30:00 AM, [address] [place] [address], [phone], Provider Name:Kevin ibarra, 02/10/2026 07:30:00 AM, [address] [place] [address], [phone], Provider Name:Kevin ibarra, 02/17/2026 10:00:00 AM, [address] [place] [address], [phone], Provider Name:Kevin ibarra, 08/03/2026 07:30:00 AM, [address] [place] [address], [phone], Provider Name:Kevin ibarra, 08/10/2026 10:30:00 AM, [address] [place] [address], [phone], Progress Notes * Rosalba CLIFFORDOB:1950 ( 75 yo M)Acc No.[id number]:09/11/2025 Patient: Nam LEHMAN Provider: Geo Mtz MD :1950 A ge:75 Y S ex:Male Date:09/11/2025 Address:[address] [place] [address], Mayela ramirez [id number] Subjective: * Chief Complaints: * 1 . Temp no energy feels like he is going to faint home alone. 2. [phone]. 3. Patient to call the ambulance per Dr Mtz he is also calling his at work. Telehealth was not done. * HPI: S ymptom(s): Telehealth T otal time spend talking with patient (minutes)?0. * ROS: G eneral/Constitutional: Admits Derick hills. A dmits F atigue. A dmits F ever. D enies H eadache. E NT: Denies S ore throat. R espiratory: Denies C ough. D enies S hortness of breath at rest. A dmits S hortness of breath with exertion. G astrointestinal: Denies D iarrhea. D enies N ausea. * Medical History: c olonoscopy done 2010 and was normal; 12/13/18; Colonoscopy 08/28/[address] Valencia - normal, Type 2 diabetes mellitus without complication, without long-term current use of insulin, Type 2 diabetes mellitus without complication, without long-term current use of insulin. * Medications: T aking Metoprolol Succinate 25 MG Capsule ER 24 Hour Sprinkle 1 capsule Orally Once a day , Taking Eliquis 5 MG Tablet as directed Orally , Taking Aspir-81 81 MG Tablet Delayed Release 1 tablet Orally Once a day , Taking Fluticasone Propionate 50 MCG/ACT Suspension INHALE 1 SPRAY IN EACH NOSTRIL ONCE A DAY , Taking Tamsulosin HCl 0.4 MG Capsule 1 capsule Orally Once a day , Taking Valsartan-hydroCHLOROthiazide 320- 12.5 MG Tablet TAKE 1 TABLET BY MOUTH [...] TABLET BY MOUTH ONCE DAILY , Taking Oseltamivir Phosphate 75 MG Capsule 1 capsule Orally Twice a day , Not-Taking/PRN Tylenol 8 Hour 650 MG Tablet Extended Release 2 tablets as needed Orally every 8 hrs , Not-Taking/PRN Ventolin HFA 108 (90 Base) MCG/ACT Aerosol Solution 1 puff as needed Inhalation every 4 hrs , Medication List reviewed and reconciled with the patient Objective: * Vitals: W t-k.18. Assessment: Plan: * Treatment: * * The named appointment provid er may or may not be the originator of this progress note, and it is not deemed complete until electronically signed by the appointment provider. Sign off status: Pending * Provider: Geo Mtz MD Date: 11/11/2024 Generated for Van shanks/Hayes/Mason on: 11/11/2024 05:31 PM EST History and Physical Notes * HPI (History of Present Illness) Category Sub-Category Detail Notes Category Not es Symptom(s) Telehealth Total time spend talking with patient (minutes): 0
--- NOTE | 2025-09-11 13:13 | ED.GENADULT ---
HPI - General Adult General Chief complaint: Weakness Stated complaint: fever Time Seen by Provider: 09/11/25 15:02 Source: patient Mode of arrival: ambulatory Limitations: no limitations History of Present Illness ED Provider: [facility] narrative: 75-year-old male was just discharged from the hospital on September 04 with WILIAN, new onset AFib on blood thinners, presenting with progressive weakness, noted to be febrile no chest pain no significant cough, last week he was told that he has a viral infection. Related Data Home Medications ?Medication ?Instructions ?Recorded ?Confirmed amlodipine 10 mg tablet 10 mg PO DAILY 06/17/21 09/11/25 atorvastatin 80 mg tablet 80 mg PO BEDTIME 06/20/22 09/11/25 valsartan 320 1 tab PO DAILY 07/04/23 09/11/25 mg-hydrochlorothiazide 12.5 mg tablet metformin 500 mg tablet,extended 500 mg PO BID 05/07/24 09/11/25 release 24 hr fluticasone propionate 50 1 spray intranasal DAILY 08/08/24 09/11/25 mcg/actuation nasal spray,suspension aspirin 81 mg tablet 81 mg PO DAILY 09/02/25 09/11/25 multivitamin 1 tab PO DAILY 09/11/25 09/11/25 Previous Rx's ?Medication ?Instructions ?Recorded spironolactone 25 mg tablet 25 mg PO DAILY #90 tabs 11/18/24 apixaban 5 mg tablet (Eliquis) 5 mg PO BID #60 tabs 09/04/25 metoprolol succinate 25 mg 25 mg PO DAILY #30 tabs 09/04/25 tablet,extended release 24 hr Allergies Allergy/AdvReac Type Severity Reaction Status Date / Time No Known Allergies (No Known Allergy Verified 09/11/25 13:15 Allergies*) Review of Systems Constitutional: Constitutional: Reports as per [facility] Past Medical History Medical History (Updated 09/12/25 @ 15:20 by Zhang Jasmine MD) Thrombocytopenia New onset a-fib Paroxysmal A-fib Trace mitral valve regurgitation Essential hypertension Type 2 diabetes mellitus with unspecified complications Bone spur of ankle Arthritis Back pain Sleep apnea with use of continuous positive airway pressure (CPAP) Hyperlipidemia Hypertension Surgical History History of total left knee replacement H/O varicose vein ligation Hx of laparoscopic gastric banding History of colonoscopy Family History Family History Father No problems noted. Mother No problems noted. Social History Social History Household Members: Spouse Housing: House Are you a primary physician primary care sports medicine to a significant other at home: No Do you presently have visiting nurse or other home services: No Alcohol intake: current Alcohol intake frequency: holidays/special occasions only Comment: standby assist Patient Tobacco Use Status: Former Tobacco user Tobacco use type: Cigarette Years Smoked: 5 +/- Smoked in Last 30 Days: No e-Cigarette/Vaping Use: Former Use Patient Given Instructions on How to Stop Smoking: No Second Hand Smoke Exposure: No Currently Displaying Signs/Symptoms of Drug Intoxication Withdrawal: No Have you been hit, kicked, punched, or otherwise hurt by someone within the past year? If so, by whom?: No Do you feel safe in your current relationship?: Yes Advance Directives: No Advance Directives Information Provided: Yes Do you have a plan to hurt others: No Plan Recently lost weight without trying: No How much weight loss: Not applicable Eating poorly because of decreased appetite: Yes Nutrition screen score: 1 Nutrition Risks: No Nutritional Risk Poor oral hygiene: No service: No Physical Exam ED Exam Exam: General: ?Appears of stated age ? ?PERRLA, EOMI, MMM, ? Neck: Supple, no LAD ? ?CV: RRR, no obvious murmurs appreciated ? ?Resp: ?Minimal rhonchi at the bases bilaterally ? Abd: ?Bowel sounds are present, no tenderness no rebound no rigidity ? ?MSK: FROM, strength 5/5 all extremities ? Skin: Warm, dry, intact, no lower extremity edema ? ?Neuro: ?Alert and oriented x3, moving upper and lower extremities symmetrically, no obvious facial asymmetry noted, cranial nerves 2-12 intact Vital Signs: Vital Signs - 24 hr 09/11/25 13:11 09/11/25 14:44 09/11/25 17:32 Temperature 98.7 F 102.1 F H 98.4 F Pulse Rate 109 H 108 H 121 H Respiratory Rate 20 18 15 Blood Pressure 186/66 H 136/75 73/30 L Pulse Oximetry 98 97 96 Oxygen Delivery Method Room Air Room Air Room Air 09/11/25 17:35 09/11/25 17:40 09/11/25 17:46 Temperature Pulse Rate 119 H 117 H Respiratory Rate 14 16 Blood Pressure 71/36 L 76/38 L 91/46 L Pulse Oximetry 98 98 Oxygen Delivery Method Room Air Room Air 09/11/25 17:54 09/11/25 17:55 09/11/25 17:55 Temperature Pulse Rate 109 H 120 H Respiratory Rate 18 Blood Pressure 67/43 L 84/52 L 72/45 L Pulse Oximetry Oxygen Delivery Method 09/11/25 18:20 Temperature Pulse Rate 90 Respiratory Rate 20 Blood Pressure 90/46 L Pulse Oximetry 99 Oxygen Delivery Method Room Air BMI result Body Mass Index 24.5 Course Course Course Narrative: Rapid medical examination performed in triage by Kath Beaulieu PA-C: Patient is a 75 year old assigned male at presenting to the emergency department with feeling generally unwell with dizziness and chills. Detailed physical exam and review of systems are deferred to the name plate stamper. EKG, labs, imaging, swabs ordered. Patient placed back in the waiting room pending room availability and results. Reevaluation(s) Reevaluation #1: 4:31 PM 09/11/2025 (Dr. Ang Owens): I assumed care at this time following up a CT imaging of the chest patient is febrile tachycardic unclear cause at this time with negative urinalysis no skin musculoskeletal findings. No abdominal tenderness expressed to me from previous provider examination. Reevaluation #2: 1740PM 09/11/2025 (Dr. Ang Owens): I was notified the patient's blood pressure dropped upon returning from CT scan. 70s over 40s map mid 50s. Heart rate AFib 110s patient has been in atrial fibrillation. Rapid bedside ultrasound reveals no tamponade no RV dilation, LV though limited has no evidence of severe reduced LV function. He does have a documented history from an echo recently on September 03 of HFrEF 42% EF. Patient has no rales he is asymptomatic now feels well he did transiently got a little sweaty returning from CT and then the blood pressure was noticed to be low. There was no free fluid in the abdomen I started a 1 L bolus I want to be cautious with over hydrating this patient with moderately reduced LV function on recent echo but he looks capable of tolerating at least some fluid. After this we will switch to albumin. Lactate was not elevated previously but the patient now does meet severe sepsis criteria Medications Administered Generic Name Dose Route Start Last Admin Trade Name Freq PRN Reason Stop Dose Admin Acetaminophen 650 mg 09/11/25 21:42 09/12/25 11:57 Acetaminophen 325 Mg Tablet PO 650 mg Q6H PRN Administration Pain, Mild 1-3,fever,headache Apixaban 5 mg 09/12/25 09:00 09/13/25 09:19 Apixaban 5 Mg Tablet PO 5 mg BID LATOYA Administration Aspirin 81 mg 09/12/25 09:00 09/13/25 09:19 Aspirin Enteric Coated 81 Mg Tablet. PO 81 mg DAILY LATOYA Administration Atorvastatin Calcium 80 mg 09/11/25 22:10 09/12/25 21:57 Atorvastatin Calcium 80 Mg Tablet PO 80 mg BEDTIME LATOYA Administration Fluticasone Propionate 1 spray 09/12/25 09:00 09/13/25 09:36 Fluticasone Propionate Nasal 16 Gm [place] NOSTRIL-B 1 spray DAILY LATOYA Administration Furosemide 20 mg 09/12/25 17:25 09/13/25 09:19 Furosemide 20 Mg/2 Ml Vial IVPUSH 20 mg DAILY LATOYA Administration Protocol Acetaminophen 1,000 mg in 100 mls @ 400 mls/hr 09/12/25 13:30 09/13/25 07:47 Ofirmev IV Infused Q6H PRN Infusion Fever Vancomycin HCl 750 mg/ Sodium 265 mls @ 265 mls/hr 09/13/25 08:00 09/13/25 12:37 Chloride IV Infused Q12H LATOYA Infusion Ceftriaxone Sodium 2 gm/ 50 mls @ 100 mls/hr 09/13/25 12:00 09/13/25 13:19 Sodium Chloride IV Infused Q24H LATOYA Infusion Insulin Human Lispro 0 unit 09/12/25 07:30 09/13/25 11:36 Insulin Lispro 100 Unit/Ml 3 Ml Vial SUBCUT 2 unit QIDACHS LATOYA Administration Protocol Metoprolol Tartrate 50 mg 09/13/25 09:00 09/13/25 09:19 Metoprolol Tartrate 50 Mg Tablet PO 50 mg BID LATOYA Administration Protocol Multivitamins/Vitamin C 1 tab 09/12/25 09:00 09/13/25 09:19 Multivitamin Tablet PO 1 tab DAILY LATOYA Administration Sodium Chloride 3 ml 09/12/25 00:00 09/13/25 09:19 0.9 % Sodium Chloride Flush 3 Ml Syringe IVFLUSH 3 ml QSHIFT LATOYA Administration Spironolactone 25 mg 09/12/25 09:00 09/13/25 09:18 Spironolactone 25 Mg Tablet PO 25 mg DAILY LATOYA Administration Protocol Discontinued Medications Generic Name Dose Route Start Last Admin Trade Name Jessie PRN Reason Stop Dose Admin Ceftriaxone Sodium 1 gm/ 50 mls @ 100 mls/hr 09/11/25 14:53 09/11/25 17:45 Sodium Chloride IV 09/11/25 15:22 Infused ONCE ONE Infusion Acetaminophen 1,000 mg in 100 mls @ 400 mls/hr 09/11/25 14:53 09/11/25 17:45 Ofirmev IV 09/11/25 15:07 Infused ONCE ONE Infusion Albumin Human 100 mls @ 133.333 mls/hr 09/11/25 18:00 09/11/25 19:30 Kedbumin 25 % IV 09/11/25 19:44 Infused Q1H LATOYA Infusion Lactated Ringer's 1,000 mls @ 999 mls/hr 09/11/25 18:00 09/11/25 18:33 Lr IV 09/11/25 19:00 Infused .Q1H1M LATOYA Infusion Vancomycin HCl 2,000 mg in 500 mls @ 250 mls/hr 09/11/25 18:37 09/11/25 22:40 Vancomycin/Ns IV 09/11/25 20:36 Infused ONCE ONE Infusion Albumin Human 100 mls @ 133.333 mls/hr 09/11/25 18:45 09/11/25 21:00 Kedbumin 25 % IV 09/11/25 20:29 Infused Q1H LATOYA Infusion Ceftriaxone Sodium 1 gm/ 50 mls @ 100 mls/hr 09/12/25 16:00 09/12/25 18:22 Sodium Chloride IV Infused Q24H LATOYA Infusion Ceftriaxone Sodium 2 gm/ 50 mls @ 100 mls/hr 09/13/25 10:54 09/13/25 11:46 Sodium Chloride IV Not Given Q24H LATOYA Iohexol 100 ml 09/11/25 17:20 09/11/25 17:21 Iohexol 350 Mg/Ml 100 Ml Infus..Btl IV 09/11/25 17:21 65 ml ONCE ONE Administration Metoprolol Succinate 25 mg 09/12/25 09:00 09/12/25 07:24 Metoprolol Succinate Er 25 Mg Tab.Er.24h PO 25 mg DAILY LATOYA Administration Protocol Metoprolol Tartrate 5 mg 09/12/25 07:24 09/12/25 07:31 Metoprolol Tartrate 5 Mg/5 Ml Vial IVPUSH 09/12/25 07:25 5 mg ONCE ONE Administration Protocol Metoprolol Tartrate 5 mg 09/12/25 11:45 09/12/25 11:57 Metoprolol Tartrate 5 Mg/5 Ml Vial IVPUSH 09/12/25 11:46 5 mg ONCE ONE Administration Protocol Metoprolol Tartrate 25 mg 09/12/25 11:50 09/12/25 11:59 Metoprolol Tartrate 25 Mg Tablet PO 09/12/25 21:01 25 mg BID LATOYA Administration Protocol Procedures Procedure Narrative Procedure Narrative: EMERGENCY ULTRASOUND INTERPRETATION-Limited Echocardiography [This study was ordered, performed, and interpreted by myself. The study reveals: Impression: Limited views but adequate to at least exclude: No evidence of severely reduced LV function, no evidence of severe RV strain, no tamponade. Normal respiratory variation IVC [Emergent Cardiac for Indication: Views Used: PLAX, PSSA, A4, SX, IVC Pericardial Effusion/Tamponade Findings: NONE RV Dilation (> LV diam in 4ch apical): NONE Global LV Fxn: No evidence of severely reduced LV function IVC Dilation and Resp Variation: NORMAL Performed by: MD Graciela Images were stored CPT:98453] EMERGENCY ULTRASOUND INTERPRETATION-Point of Care Trauma (FAST) Limited Abdominal [This study was ordered, performed, and interpreted by myself. The study reveals: Impression: -Peritoneum: NO FREE FLUID [Indication: Unexplained hypotension Fluid (FAST Views): -Hepatorenal: NEGATIVE -Perisplenic: NEGATIVE -Retrovesical/Pelvic: NEGATIVE -Cardiac: NEGATIVE Performed by: Ang Owens MD Images were stored CPT: 39052,[id number],49150] Medical Decision Making Medical Decision Making MDM Narrative: 3:35 PM 09/11/2025 (Dr. Bradley Crowell): Recent admission, discharge, presenting with worsening symptoms, chest x-ray with likely some type of infectious etiology prior to this had a viral infection possibly this is superimposed bacterial infection we will cover with antibiotics, we will obtain CT without contrast, he was diagnosed with AFib with RVR during this admission has been on Eliquis I we will obtain CT angio to evaluate primarily for infectious and malignancy issues, he is not hypoxic however Differential Diagnosis Differential Diagnoses: The differential diagnosis associated with the presentation includes (CHF, COPD exacerbation, pneumonia, pneumothorax, ACS, PE,) Admission/Observation Consideration of admission/observation: Escalation of care including admission/observation considered Consult Healthcare Provider Management of the patient was discussed with: Hospitalist Lab Data MDM Lab Attestation statement: I reviewed the patient's lab results. 09/13/25 07:15 09/13/25 07:15 Labs: Lab Results 09/11/25 09/11/25 09/11/25 Range/Units 13:24 15:07 17:54 WBC 7.9 (4.8-10.8) X10*3/uL RBC 3.90 L (4.60-5.80) X10*6/uL Hgb 11.5 L (14.0-18.0) g/dl Hct 35.6 L (42.0-52.0) % MCV 91.3 (80.0-98.0) fL MCH 29.5 (27.0-33.0) pg MCHC 32.3 (31.0-36.0) g/dl RDW 15.4 (11.0-16.0) % Plt Count 349 D (160-400) X10*3/uL MPV 9.7 (9.4-12.4) fL Immature Gran % (Auto) 1.3 H (0.0-0.4) % Neut % (Auto) 73.9 H (45-73) % Lymph % (Auto) 15.3 L (20-40) % [place] % (Auto) 9.0 (2-11) % Eos % (Auto) 0.1 (0-4) % Baso % (Auto) 0.4 (0-2) % Lymph # (Auto) 1.2 (1.2-4.9) X10*3/uL [place] # (Auto) 0.7 (0.1-1.2) X10*3/uL Eos # (Auto) 0.0 (0.0-0.4) X10*3/uL Baso # (Auto) 0.0 (0.0-0.2) X10*3/uL Abs Immat Gran (auto) 0.10 H (0.00-0.03) X10*3/uL Absolute Neuts (auto) 5.8 (2.0-8.3) x10*3/uL Absolute Nucleated RBC 0.000 (0.0-0.012) X10*3/uL Nucleated RBC % (auto) 0.0 (0.0-0.2) /100WBC PT 17.7 H (11.2-13.5) SEC INR 1.5 H (0.9-1.1) Sodium 138 (135-145) mmol/L Potassium 4.7 D (3.3-5.1) mmol/L Chloride 106 (96-108) mmol/L Carbon Dioxide 25 (22-29) mmol/L Anion Gap 12 (12-20) BUN 22 H (9-16) mg/dL Creatinine 1.28 (0.5-1.4) mg/dL Estim Creat Clear Calc 58.6 Estimated GFR 55 POC Glucose 190 H (60-115) mg/dL Random Glucose 130 H (60-115) mg/dL Lactic Acid 0.8 (0.5-2.0) mmol/L Calcium 9.4 D (8.4-10.2) mg/dL Magnesium 1.7 (1.6-2.6) mg/dL Total Bilirubin 0.9 (0.0-1.0) mg/dL AST 43 H (5-37) U/L ALT 66 H (0-40) U/L Alkaline Phosphatase 82 (39-117) U/L Troponin I High Sens 13.6 D (<3.5-35.0) ng/L NT-Pro-B Natriuret Pep 998.8 H (<300) pg/mL Total Protein 7.5 (6.5-8.0) g/dL Albumin 4.3 (3.5-5.0) g/dL Lipase 45 (8-78) U/L Urine Color Yellow Urine Appearance Clear Urine pH 6.5 (5.0-9.0) Ur Specific [place] 1.020 (1.005-1.025) Urine Protein 30 (1+) H (Neg-Trace) mg/dL Urine Glucose (UA) Negative (Negative) mg/dL Urine Ketones Trace (Negative) mg/dL Urine Blood Trace H (Negative) Urine Nitrite Negative (Negative) Ur Leukocyte Esterase Negative (Negative) Urine RBC 6-10 H (0-2) /HPF Urine WBC 0-5 (0-5) /HPF Ur Squamous Epith Cells 0-2 (0-2) /HPF Urine Bacteria None Seen (None Seen) Hyaline Casts 0-2 (0-2) /LPF COVID-19 (EVAN) Negative (Negative) COVID-19 Clin Com See Note Influenza Type A (RADHA) Negative (Negative) Influenza Type B (RADHA) Negative (Negative) Influenza A & B Note See Note Independent Interpretation I performed an independent interpretation of an: EKG (106 beats per minute, left bundle-branch block, AFib) Radiology Impression Discussion of test interpretation with radiology: I have reviewed the radiologist's reading. (RDER #: [id number] XR/XR chest 2V IMPRESSION: Increased right central bronchovascular markings questionable for airways disease. Similar opacities in both upper lobes may represent represent summation of bone and vascular structures and small symmetric nodules at both lung bases that may represent) Independent Historian Clinical information obtained from an independent historian. History obtained from or confirmed by: Spouse Prescription Management I considered prescription management with: Antibiotic Critical Care Time Critical Care Time Critical Care Time: Yes Total Critical Care Time: 100 Attestation: ED Critical Care: Authorized and Performed by: Ang Owens MD Total critical care time: Approximately 100 min Due to a high probability of clinically significant, life threatening deterioration, the patient required my highest level of preparedness to intervene emergently and I personally spent this critical care time directly and personally managing the patient. This critical care time included obtaining a history; examining the patient; pulse oximetry; ordering and review of studies; arranging urgent treatment with development of a management plan; evaluation of patient's response to treatment; frequent reassessment; and, discussions with other providers. This critical care time was performed to assess and manage the high probability of imminent, life-threatening deterioration that could result in multi-organ failure. It was exclusive of separately billable procedures and treating other patients and teaching time. Discharge Plan Discharge Clinical Impression: Community acquired pneumonia, Atrial fibrillation with RVR Patient Disposition: Admitted As Inpatient Interventions: Admission Worksheet (ED) Last Done: 09/12/25 00:03 Discharge Date/Time: 09/12/25 00:58 Sepsis Bolus Exclusion Sepsis Bolus Exclusion CHF/Renal Failure Date of Occurrence: 09/11/25 Time of Occurrence:: 17:50 This patient met severe sepsis criteria due to the following condition(s):: Hypotension In my clinical judgement the administration of 30 ml/kg of crystalloid would be detrimental to this patient due to the patient's following conditions:: Concern for fluid overload (EF 42% on 09/03 Echo) Replace the 30 mls/kg with (Zero amount not acceptable and all fluids for severe sepsis must be given at GREATER than 125 mls/hr) *Note: One of the ching must be documented Crystalloids amount given in mls: (rate must be at least 150cc/hr): 1,000 Colloids amount given in mls:: 400 At a rate of (must be > 125 cchr):: 133
--- NOTE | 2025-09-11 13:14 | ECG_ITS ---
Test Reason : weakness Blood Pressure : */* mmHG Vent. Rate : 106 BPM Atrial Rate : * BPM P-R Int : * ms QRS Dur : 124 ms QT Int : 340 ms P-R-T Axes : * -23 104 degrees QTcB Int : 451 ms Atrial fibrillation with rapid ventricular response Left bundle branch block Abnormal ECG When compared with ECG of 02-Sep-2025 09:25, No significant change was found Referred By: Kath Beaulieu Electronically Signed By: Zhang Jasmine
[2025-09-11 13:31] LABS: MANUAL DIFF FLAG NO
[2025-09-11 13:36] LABS: Hematocrit 35.6 % (42.0-52.0); Hemoglobin 11.5 g/dl (14.0-18.0); Imm Gran Abs Auto 0.10 X10*3/uL (0.00-0.03); Imm Gran Pct Auto 1.3 % (0.0-0.4); Lymphocytes Absolute Auto 1.2 X10*3/uL (1.2-4.9); Mean Corpuscular HGB Conc 32.3 g/dl (31.0-36.0); Mean Corpuscular Hemoglobin 29.5 pg (27.0-33.0); Mean Corpuscular Volume 91.3 fL (80.0-98.0); NRBC Abs Auto 0.000 X10*3/uL (0.0-0.012); NRBC Pct Auto 0.0 /100WBC (0.0-0.2); Platelet Count 349 X10*3/uL (160-400); Red Blood Count 3.90 X10*6/uL (4.60-5.80); White Blood Count 7.9 X10*3/uL (4.8-10.8)
[2025-09-11 13:40] LABS: INTERNATIONAL NORM RATIO 1.5 (0.9-1.1); Prothrombin Time 17.7 SEC (11.2-13.5)
[2025-09-11 13:54] LABS: IDNOW Serial# 08D9AD1C; Influenza B2 Negative (Negative)
[2025-09-11 13:55] LABS: COVID-19 Test Negative (Negative); IDNOW Serial# 55D5AD1C
[2025-09-11 14:00] LABS: Alanine Aminotransferase 66 U/L (0-40); Albumin Level 4.3 g/dL (3.5-5.0); Alkaline Phosphatase 82 U/L (39-117); Anion Gap 12 (12-20); Aspartate Amino Transferase 43 U/L (5-37); Blood Urea Nitrogen 22 mg/dL (9-16); Calcium 9.4 mg/dL (8.4-10.2); Carbon Dioxide 25 mmol/L (22-29); Chloride 106 mmol/L (96-108); Creatinine Clr Calc Pharmacy 58.6; Estimated Glomerular Filt Rate 55; Magnesium 1.7 mg/dL (1.6-2.6); Potassium 4.7 mmol/L (3.3-5.1); Sodium 138 mmol/L (135-145); Total Protein 7.5 g/dL (6.5-8.0)
[2025-09-11 14:07] LABS: NT Pro B Type Natriuretic Pept 998.8 pg/mL (<300); Troponin-I High Sensitivity 13.6 ng/L (<3.5-35.0)
[2025-09-11 15:21] LABS: Appearance Urine Clear; Glucose Urine UA Negative (Negative); PH 6.5 (5.0-9.0); Specific Gravity - Urine 1.020 (1.005-1.025); UMIC TRIGGER UACC YES
[2025-09-11] MEDS: iohexoL 350 MG/ML 100 ML INFUS..BTL IV (17:21)
--- OUTSIDE RECORDS SUMMARY | 2025-09-11 17:31 | XMS_ITS | Encounter Summary ---
Author Organization [facility] Address [address] [place] [id number] Phone Care Team Providers Care Information Systems Director Name Role Phone Kevin Mtz MD Primary Care Provider Encounter Details Date Type Department Care Team (Late st Contact Info) Description 08/12/2022 Procedure Pass [address] [place] [address] Social History Tobacco Use Types Packs/Day Years [...] on filedocumented in this encounter Care Teams Information Systems Director Relationship Specialty Start Date End Date Kevin Mtz MD [address] [place] [address] [place] [id number] PCP - General Internal Medicine 12/31/20 documented as of this encounter Additional Source Comments The information contained in this document represents components of the legal health record. It is not the complete legal health record.[facility]
--- OUTSIDE RECORDS SUMMARY | 2025-09-11 17:31 | XMS_ITS | Patient Health Record ---
Author Organization [facility] Address [address] [place] [address] Care Team Providers Care Second Watch Sergeant Name Role Phone Kevin Mtz MD Primary Care Provider Thaddeus Gatica Jr Unavailable Reason For Referral No Information Medications Medication [...] Status Risk Notes Problem Colon cancer screening (897128350) Colon cancer screening (Z12.11) Active confirmed Problem Long-term current use of drug therapy (030987285) salvage determiner (current) use of oral hypoglycemic drugs (Z79.84) Active confirmed Plan Of Treatment Future Test Test Name Order Date COLONOSCOPY 08/03/2020 Insurance Providers Payer Name Payer Address Payer Phone Subscriber Number Group Number Insured Name Patient Relationship to Insured Coverage Start Date Coverage End Date [facility] [address] [place] [phone] [id number] CURTIS CLIFFORD Self - patient is the insured Medical (General) History Medical History History ICD Code type II diabetes hypertension carpal tunnel elevated cholesterol chronic kidney disease Surgical History Surgery Date(Month/Year) Lap Band 2004 varicose vein stripping
--- OUTSIDE RECORDS SUMMARY | 2025-09-11 17:32 | XMS_ITS | Patient Health Record ---
Author Organization Kevin Mtz MD Address [address] [place], [place] [id number] Care Team Providers Care User Interface Engineer Name Role Phone Bibi Kevin Primary Care Provider [phone] Allergies No Known Allergies Results Component Value Reference Range Notes Liver Panel Reviewed date:01/27/2025 12:45:27 PM Interpretation: Performing Lab:[address] [address] Notes/Report: Bilirubin Total 0.4 0.0-1.0 mg/dL Bilirubin Direct 0.2 0.0-0.5 mg/dL Aspartate Amino Transferase 29 5-37 U/L Alanine Aminotransferase 25 0-40 U/L Total Protein 7.3 6.5-8.0 g/dL Albumin Level 4.3 3.5-5.0 g/dL Alkaline Phosphatase 93 39-117 U/L Glucose Fasting Reviewed date:01/27/2025 12:43:38 PM Interpretation: Performing Lab:[address] [address] Notes/Report: Glucose Fasting 111 60-99 mg/dL A fasting glucose from 100-125 mg/dl is considered impaired (pre-diabetes). Lipid Panel with Reflex Reviewed date:01/27/2025 12:43:25 PM Interpretation: Performing Lab:[facility] [place], [address] [place] [phone] Notes/Report: Triglycerides 40 <150 mg/dL Desirable Triglyceride: [...] A1c Reviewed date:01/27/2025 12:42:22 PM Interpretation: Performing Lab:[facility] [place], [address] [place] [phone] Notes/Report: Hemoglobin A1c % 5.9 <6.0 % [...] average glucose, using the formula of the Q9Y-[id number] Average Glucose study (ADAG), Diabetes Care, Vol.31,#8, Jun. 2007 Complete Blood Count Auto Di ff Reviewed date:07/31/2025 12:27:22 PM Interpretation: Performing Lab:[facility] [place], [address] [place] [phone] Notes/Report: White Blood Count 9.5 4.8-10.8 X10*3/uL [...] 0.0-0.2 /100WBC Neutrophils Absolute Auto 6.6 2.0-8.3 x10*3/uL Imm Gran Abs Auto 0.03 0.00-0.03 X10*3/uL Lymphocytes Absolute Auto 1.7 1.2-4.9 X10*3/uL Monocytes Absolute Auto 0.8 0.1-1.2 X10*3/uL Eosinophils Absolute Auto 0.4 0.0-0.4 X10*3/uL Basophils Absolute Auto 0.0 0.0-0.2 X10*3/uL NRBC Abs Auto 0.000 0.0-0.012 X10*3/uL Comprehensive [place]. Panel Fa st Reviewed date:07/31/2025 04:25:14 PM Interpretation: Performing Lab:[facility] [place], [address] [place] [phone] Notes/Report: Sodium 146 135-145 mmol/L Potassium 4.7 [...] Panel Reviewed date:07/31/2025 12:25:42 PM Interpretation: Performing Lab:[address] [address] Notes/Report: Triglycerides 49 <150 mg/dL Desirable Triglyceride: [...] (Free>4and<10) Reviewed date:07/31/2025 12:28:34 PM Interpretation: Performing Lab:[address] [address] Notes/Report: PSA,Total (Free>4and<10) 0.99 0.00-4.00 ng/mL A [...] Random Reviewed date:07/31/2025 12:41:22 PM Interpretation: Performing Lab:[address] [address] Notes/Report: Creatinine Urine 75.73 Microalbumin Urine 16.0 Microalbum/Creatinine Ratio Ur 21.1 <30 ug/mg cr Albumin/Creatinine Ratio Reference Ranges: Normal: < 30 ug/mg creatinine Microalbuminuria: 30 - 300 ug/mg creatinine Clinical Albuminuria: > 300 ug/mg creatinine Hemoglobin A1c Reviewed date:07/31/2025 12:24:03 PM Interpretation: Performing Lab:[address] [address] Notes/Report: Hemoglobin A1c % 6.1 <6.0 % [...] average glucose, using the formula of the I7G-[id number] Average Glucose study (ADAG), Diabetes Care, Vol.31,#8, Jun. 2007 UA ClnCatch+Micro w/rflx Cul t Reviewed date:07/31/2025 04:27:22 PM Interpretation: Performing Lab:[address] [address] Notes/Report: [id number] Urine, Clean Catch Color Urine Yellow Appearance Urine Clear PH 5.5 5.0-9.0 Glucose Urine UA Negative Negative mg/dL Urine Blood Negative Negative Specific [place] - Urine 1.020 1.005-1.025 Urine Protein Negative Neg-Trace mg/dL Urine Ketones Negative Negative mg/dL Nitrite Urine Negative Negative Leukocyte Esterase Urine Negative Negative RBC Urine 0-2 0-2 /HPF WBC Urine 0-5 0-5 /HPF Squamous Epithelial Cell Urine 0-2 0-2 /HPF Bacteria Urine None Seen None Seen Hyaline Casts Urine 0-2 0-2 /LPF Microalbumin, Random Reviewed date:02/03/2025 01:49:57 PM Interpretation: Performing Lab:[facility] [place], [address] [place] [phone] Notes/Report: Creatinine Urine 112.03 Microalbumin Urine 28.0 Microalbum/Creatinine Ratio Ur 24.9 <30 ug/mg cr Albumin/Creatinine Ratio Reference Ranges: Normal: < 30 ug/mg creatinine Microalbuminuria: 30 - 300 ug/mg creatinine Clinical Albuminuria: > 300 ug/mg creatinine UA ClnCatch+Micro w/rflx Cul t Reviewed date:02/03/2025 01:54:17 PM Interpretation: Performing Lab:[facility] [place], [address] [place] [phone] Notes/Report: Urine, Clean Catch Color Urine Yellow Appearance Urine Clear PH 5.0 5.0-9.0 Glucose Urine UA Negative Negative mg/dL Urine Blood Negative Negative Specific [place] - Urine 1.025 1.005-1.025 Urine Protein [...] Gold Reviewed date:01/27/2025 12:40:34 PM Interpretation: Performing Lab:[facility] [place], [address] [place] [phone] Notes/Report: Hold Gold See Note Specimen held untested for 24 hours; Call to request Chemistry testing. Complete Blood Count Auto Di ff (Not yet reviewed by provider) Interpretation:09-11-25 Performing Lab:[facility] [place], [address] [place] [phone] Notes/Report: White Blood Count 3.5 4.8-10.8 X10*3/uL [...] 0.0-0.2 /100WBC Neutrophils Absolute Auto 3.0 2.0-8.3 x10*3/uL Imm Gran Abs Auto 0.01 0.00-0.03 X10*3/uL Lymphocytes Absolute Auto 0.3 1.2-4.9 X10*3/uL Monocytes Absolute Auto 0.3 0.1-1.2 X10*3/uL Eosinophils Absolute Auto 0.0 0.0-0.4 X10*3/uL Basophils Absolute Auto 0.0 0.0-0.2 X10*3/uL NRBC Abs Auto 0.000 0.0-0.012 X10*3/uL Prothrombin Time INR Reviewed date:09/02/2025 12:28:52 PM Interpretation: Performing Lab:[facility] [place], [address] [place] [phone] Notes/Report: Prothrombin Time 11.1 10.9-12.4 SEC INTERNATIONAL NORM RATIO 1.0 0.9-1.1 INTERNATIONAL NORMALIZED RATIO (INR) REFERENCE RANGES Reference Range For patients not on anticoagulant therapy: 0.9 - 1.1 INR ranges for oral anticoagulant therapy: For prevention and treatment of venous thrombosis and pulmonary embolism: 2.0 - 3.0 For acute myocardial infarction with aspirin therapy: 2.0 - 3.0 For acute myocardial infarction without aspirin therapy: 3.0 - 4.0 For patients with mechanical prosthetic heart valves: 2.5 - 3.5 Partial Thromboplastin Time Reviewed date:09/02/2025 12:27:37 PM Interpretation: Performing Lab:[facility] [place], [address] [place] [phone] Notes/Report: Partial Thromboplastin Time 27.0 26.7-34.1 SEC Liver Panel Reviewed date:09/02/2025 12:32:09 PM Interpretation: Performing Lab:[facility] [place], [address] [place] [phone] Notes/Report: Bilirubin Total 0.6 0.0-1.0 mg/dL Bilirubin Direct 0.3 0.0-0.5 mg/dL Aspartate Amino Transferase 86 5-37 U/L Alanine Aminotransferase 63 0-40 U/L Total Protein 6.7 6.5-8.0 g/dL Albumin Level 3.9 3.5-5.0 g/dL Alkaline Phosphatase 67 39-117 U/L Basic Metabolic Panel Reviewed date:09/02/2025 12:33:55 PM Interpretation: Performing Lab:[facility] [place], [address] [place] [phone] Notes/Report: Sodium 136 135-145 mmol/L Potassium 4.3 [...] 60-115 mg/dL Calcium 8.4 8.4-10.2 mg/dL Magnesium Reviewed date:09/02/2025 12:32:18 PM Interpretation: Performing Lab:[facility] [place], [address] [place] [phone] Notes/Report: Magnesium 1.9 1.6-2.6 mg/dL Troponin-I High Sensitivity Reviewed date:09/02/2025 12:33:31 PM Interpretation: Performing Lab:[facility] [place], [address] [place] [phone] Notes/Report: Troponin-I High Sensitivity 157.2 <3.5-35.0 ng/L Critical value for test(s):TROPONIN Results called to and read back by: SEBAS Person calling:MELISSASRAVAN Date:09/02/25 Time:0934 The Reese high sensitivity Troponin-I results should be used in conjunction with other diagnostic information such as ECG, clinical observations and information, and patient symptoms to aid in the diagnosis of NC. Glucose, Whole Blood Reviewed date:09/03/2025 01:01:14 PM Interpretation: Performing Lab:[facility], [address] [place] [phone] Notes/Report: Glucose, Whole Blood 158 60-115 mg/dL METER # : [id number] Respiratory Panel Reviewed date:09/03/2025 01:00:32 PM Interpretation: Performing Lab:[facility] [place], [address] [place] [phone] Notes/Report: Adenovirus PCR Not Detected Not Detect. Bordetella pertussis PCR Not Detected Not Detect. Interpret results with caution. If B. pertussis is specifically suspected, additional testing using an alternate method is recommended. Bordetella parapertussis PCR Not Detected Not Detect. Chlamydia pneumoniae PCR Not Detected Not Detect. Coronavirus 229E PCR Not Detected Not Detect. Coronavirus HKU1 PCR Not Detected Not Detect. Coronavirus NL63 PCR Not Detected Not Detect. Coronavirus OC43 PCR Not Detected Not Detect. SARS-CoV-2 PCR Not Detected Not Detect. SARS-CoV-2 not detected by real-time RT-PCR. Note: If clinical suspicion for Sars-CoV-2 is high, continue to maintain precautions and consider repeat testing. Test results should be interpreted in the context of clinical findings and other laboratory data. Rare polymorphisms exist that could lead to false-negative or false-positive results. If results do not match the clinical findings, additional testing should be considered. Results reported to [facility]. This test has been authorized by the FDA under the Emergency Use Authorization (EUA) for use by authorized laboratories. Influenza A PCR Not Detected Not Detect. Influenza A H1 PCR Not Detected Not Detect. Influenza A H1-2009 PCR Not Detected Not Detect. Influenza A H3 PCR Not Detected Not Detect. Influenza B PCR Not Detected Not Detect. Human metapneumovirus PCR Not Detected Not Detect. Rhino/Enterovirus PCR Not Detected Not Detect. Mycoplasma pneumoniae PCR Not Detected Not Detect. Parainfluenza 1 PCR Not Detected Not Detect. Parainfluenza 2 PCR Not Detected Not Detect. Parainfluenza 3 PCR Not Detected Not Detect. Parainfluenza 4 PCR Not Detected Not Detect. RSV PCR Not Detected Not Detect. Resp Panel NA Note See Note All results must be correlated with clinical findings. Negative results should not be used as the sole basis for diagnosis, treatment, or other management decisions. A negative result does not exclude the possibility of viral or bacterial infection. Negative results may occur from the presence of sequence variants in the region targeted by the assay, the presence of inhibitors, an infection caused by an organism not detected by the panel, or lower respiratory tract infections that are not detected by a nasopharyngeal swab specimen. Test results may also be affected by concurrent antiviral/antibacteri al therapy or levels of organism in the specimen that are below the limit of detection for this test. This assay is performed by Multiplexed PCR, utilizing the [employer] Array. COVID-19 ID NOW (drumbi) Reviewed date:09/02/2025 12:29:14 PM Interpretation: Performing Lab:[facility] [place], [address] [place] [phone] Notes/Report: IDNOW Serial# [id number] COVID-19 Test Negative Negative COVID-19 Note See [...] with other viruses. Testing facilities within the [facility] and its territories are required to [...] by authorized laboratories. Testing performed on the drumbi ID NOW utilizing NAAT. UA ClnCatch+Micro w/rflx Cul t Reviewed date:09/03/2025 01:01:44 PM Interpretation: Performing Lab:[address] [address] Notes/Report: [id number] Urine, Clean Catch Color Urine Dark Yellow Appearance Urine Cloudy PH 5.0 5.0-9.0 Glucose Urine UA Negative Negative mg/dL Urine Blood Small (1+) Negative Specific [place] - Urine 1.025 1.005-1.025 Urine Protein 100 (2+) Neg-Trace mg/dL Urine Ketones Negative Negative mg/dL Nitrite Urine Negative Negative Leukocyte Esterase Urine Trace Negative RBC Urine 3-5 0-2 /HPF WBC Urine 0-5 0-5 /HPF Squamous Epithelial Cell Urine 6-10 0-2 /HPF Bacteria Urine 1+ None Seen Hyaline Casts Urine 11-20 0-2 /LPF Granular Casts Urine Present Influenza A B2 ID NOW (Abbot t) Reviewed date:09/02/2025 12:29:03 PM Interpretation: Performing Lab:[address] [address] Notes/Report: IDNOW Serial# [id number] Influenza A Negative Negative Influenza B2 Negative Negative Influenza A B2 Note See Note The Reese ID NOW Influenza A B2 test is [...] specimen and co-infection with Respiratory Syncytial Virus. XR chest 1V (Not yet reviewe d by provider) Interpretation:in patient at [facility] Performing Lab: Notes/Report: [address] [address] XRay Report Signed Patient: Nam King MR#: [id number] 6 : 1950 Acct:[id number] Age/Sex: 75 / M ADM Date: 09/02/25 Loc: .ED Attending Dr: Ordering Physician: Gretchen Driscoll Date of Service: 09/02/25 Procedure(s): XR chest 1V Accession Number(s): [id number] cc: Kevin Mtz MD; Gretchen Driscoll Reason for Exam: weakness EXAMINATION: XR CHEST CLINICAL INFORMATION: weakness COMPARISON: October 13, 2019. TECHNIQUE: Frontal view of the chest was obtained. FINDINGS: Pulmonary reticular pattern with confluent opacity right upper lung lobe. No pneumothorax. No pleural effusion. Cardiomediastinal silhouette size is normal. Calcified plaque thoracic aorta. Multilevel spondylosis, axial skeleton. XR/XR chest 1V IMPRESSION: Chronic interstitial lung disease with the questionable airspace disease versus neoplasm versus summation's of the right first rib. Electronically signed by: Jerry Segal MD 09/02/2025 09:58 AM EDT RP Dictated By: Jerry Currie MD Signed By: <Electronically signed by Jerry Royal MD in [place]> 09/02/2558 DD/ TD/TT: 09/02/2556 [employer]er: [address] [address] XRay Report Signed Patient: Nam King MR#: [id number] 6 : 1950 Acct:[id number] Age/Sex: 75 / M ADM Date: 09/02/25 Loc: .ED Attending Dr: Ordering Physician: Gretchen Driscoll Date of Service: 09/02/25 Procedure(s): XR nam st 1V Accession Number(s): [id number] cc: Kevin Mtz MD; Gretchen Driscoll Reason for Exam: weakness EXAMINATION: XR CHEST CLINICAL INFORMATION: weakness COMPARISON: October 13, 2019. TECHNIQUE: Frontal view of the chest was obtained. FINDINGS: Pulmonary reticular pattern with confluent opacity right upper lung lobe. No pneumothorax. No pleural effusion. Cardiomediastinal silhouette size is normal. Calcified plaque thoracic aorta. Multilevel spondylosis, axial skeleton. X R/XR chest 1V IMPRESSION: Chronic interstitial lung disease with the questionable airspace disease versus neopl asm versus summation's of the right first rib. Electronically jay d by: Jerry Segal MD 09/02/2025 09:58 AM EDT RP Dictated By: Jerry Carvajal MD Signed By: <Electronically signed by Jerry Royal MD in [place]> 09/02/2558 DD/ 5 TD/TT: 09/02/25955 [employer]er: CT cervical spine wo con Reviewed date:09/02/2025 12:30:03 PM Interpretation: Performing Lab: Notes/Report: [place] [address] CT Scan Report Signed Patient: Nam King MR#: [id number] 6 : 1950 Acct:[id number] Age/Sex: 75 / M ADM Date: 09/02/25 Loc: .ED Attending Dr: Ordering Physician: Gretchen Driscoll Date of Service: 09/02/25 Procedure(s): CT cervical spine wo IV con Accession Number(s): [id number] cc: Kevin Mtz MD; Gretchen Driscoll Report Number: [id number]: Total DLP = 0.00 mGy-cm Reason for Exam: fall, +head strike EXAMINATION: CT CERVICAL SPINE WITHOUT CONTRAST CLINICAL INFORMATION: Possible head trauma COMPARISON: 08/15/2023 TECHNIQUE: Axial imaging was performed from the base of the skull through T2 without IV contrast. Coronal and sagittal reformatted images were generated from the original axial data set. ALARA: The examination used one or more of the following radiation dose reduction techniques: Automated exposure control, iterative reconstruction, and/or adjustment of mA and/or KV. FINDINGS: Again noted is chondrocalcinosis involving the cruciate ligament dens. There are no erosions to suggest inflammatory synovitis. Anterior osteophytes are noted throughout the cervical spine. Facet osteoarthritis is more advanced on the left than the right with joint space narrowing, vacuum phenomena, subchondral sclerosis and cystic change, and marginal osteophytes. No fracture lucency is identified. 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 No acute fracture. Electronically signed by: Mekhi Lee MD 09/02/2025 10:17 AM EDT RP Dictated By: Mekhi Lee MD Signed By: <Electronically signed by Mekhi Lee MD in [place]> 09/02/25 1017 DD/ 0945 TD/TT: 09/02/25 1007 [employer]er: [place] [address] CT Scan Report Signed Patient: Nam King MR#: [id number] 6 : 1950 Acct:[id number] Age/Sex: 75 / M ADM Date: 09/02/25 Loc: HO.ED Attending Dr: Ordering Physician: Gretchen Driscoll Date of Service: 09/02/25 Procedure(s): CT cervical spine wo IV con Accession Number(s): [id number] cc: Kevin Mtz MD; Gretchen Driscoll Report Number: [id number]: Total DLP = 0.00 mGy-cm Reason for Exam: fal l, +head strike EXAMINATION: CT CERVICAL SPINE WITHOUT CONTRAST CLINICAL INFORMATION: Possible head trauma COMPARISON: 08/15/2023 TECHNIQUE: Axial haroon ging was performed from the base of the skull through T2 without I V contrast. Coronal and sagittal reformatted images were generate d from the original axial data set. ALARA: The examinati on used one or more of the following radiation dose reduction techniques : Automated exposure control, iterative reconstruction, and/ or adjustment of mA and/or KV. FINDINGS: Again noted is chondrocalcinosis involving the cruciate ligament dens. There are no erosion s to suggest inflammatory synovitis. Anterior osteophytes are noted throughout the cervical spine. Facet osteoarthritis is more advanced on the left than the right with joint space narrowin g, vacuum phenomena, subchondral sclerosis and cystic change, and marginal osteophytes. No fracture lucency is identified. C T/CT cervical spine wo IV con IMPRESSION: Multilevel degenerat [place] disease and facet osteoarthritis. CPPD deposition. No acute fracture. Electronically jay d by: Mekhi Lee MD 09/02/2025 10:17 AM EDT RP Dictated By: Mekhi Lee MD Signed By: <Electronically signed by Mekhi Lee MD in OV> 09/02/25 1017 DD/ 0945 TD/TT: 09/02/25 1007 [employer]er: CT head/brain wo con Reviewed date:09/02/2025 12:28:43 PM Interpretation: Performing Lab: Notes/Report: [place] [address] CT Scan Report Signed Patient: Nam King MR#: [id number] 6 : 1950 Acct:[id number] Age/Sex: 75 / M ADM Date: 09/02/25 Loc: .ED Attending Dr: Ordering Physician: Gretchen Driscoll Date of Service: 09/02/25 Procedure(s): CT head/brain wo IV con Accession Number(s): [id number] cc: Kevin Mtz MD; Gretchen Driscoll Report Number: [id number]: Total DLP = 1144.00 mGy-cm Reason for Exam: fall, +head strike EXAMINATION: CT HEAD WITHOUT CONTRAST CLINICAL INFORMATION: Fall with head trauma COMPARISON: 08/15/2023 TECHNIQUE: Contiguous axial imaging was performed from the skull base to vertex without intravenous administration of contrast. This CT examination was performed using dose optimization techniques as appropriate, variously including the following: *Automated exposure control *Adjustment of mA and/or kV according to patient size (this includes techniques or standardized protocols for targeted exams where dose is matched to indication/reason for exam; i.e. extremities or head) *Use of iterative reconstruction technique FINDINGS: There is no acute ischemic change. Periventricular hypodensities are again noted. There is no intracranial hemorrhage. There is no mass-effect or midline shift. Basal cisterns and ventricles are within normal limits for age/cerebral volume. Orbits are symmetrical and unremarkable. Again noted is mucosal thickening in the right frontal sinus, and ethmoid air cells. There is decreased mucosal thickening in the right maxillary sinus and near resolution of left maxillary sinus mucosal thickening. There is no mucosal thickening in sphenoid sinuses. Mastoid air cells are clear. Chondrocalcinosis is noted in the cruciate ligament around dense. There are no bony abnormalities. CT/CT head/brain wo IV con IMPRESSION: No acute intracranial abnormality. Chronic periventricular white matter hypodensities is likely related to small vessel angiopathy, but is a nonspecific finding. Chronic sinus disease involving right frontal, ethmoid, and maxillary sinuses is slightly improved. Electronically signed by: Mekhi Lee MD 09/02/2025 10:14 AM EDT Dictated By: Mekhi Lee MD Signed By: <Electronically signed by Mekhi Lee MD in OV> 09/02/25 1014 DD/ 0945 TD/TT: 09/02/25 1007 [employer]: [place] [address] CT Scan Report Signed Patient: Nam King MR#: [id number] 6 : 1950 Acct:[id number] Age/Sex: 75 / M ADM Date: 09/02/25 Loc: .ED Attending Dr: Ordering Physician: Gretchen Driscoll Date of Service: 09/02/25 Procedure(s): CT head/brain wo IV con Accession Number(s): [id number] cc: Kevin Mtz MD; Gretchen Driscoll Report Number: [id number]: Total DLP = 1144.00 mGy-cm Reason for Exam: fal l, +head strike EXAMINATION: CT HEAD WITHOUT CONTRAST CLINICAL INFORMATION: Fall with head trauma COMPARISON: 08/15/2023 TECHNIQUE: Contiguous axial haroon ging was performed from the skull base to vertex without intravenous administration of contrast. This CT examination was performed using dose optimization techniques as appropriate, various ly including the following: *Automated exposure control *Adjustment of mA an d/or kV according to patient size (this includes techniques or standardized protocols for targeted exams where dose is matched to indication/reason for exam; i.e. extremities or head) *Use of iterative reconstruction technique FINDINGS: There is no acute ischemic change. Periventricular hypodensities are again noted. There is no intracra nial hemorrhage. There is no mass-eff ect or midline shift. Basal cisterns and ventricles are within normal limits for age/cerebral volume. Orbits are symmetric al and unremarkable. Again noted is mucos al thickening in the right frontal sinus, and ethmoid air cells. T here is decreased mucosal thickening in the right maxillary sinus and near resolution of left maxillary sinus mucosal thickening. There is no mucosal thickening in sphenoid sinuses. Mastoid air cells are clear. Chondrocalcinosis is noted in the cruciate ligament around dense. There are no bony abnormalities. C T/CT head/brain wo IV con IMPRESSION: No acute intracrania l abnormality. Chronic periventricu lar white matter hypodensities is likely related to small vessel angiopa thy, but is a nonspecific finding. Chronic sinus diseas e involving right frontal, ethmoid, and maxillary sinuses is slightly improved. Electronically jay d by: Mekhi Lee MD 09/02/2025 10:14 AM EDT Dictated By: Mekhi Lee MD Signed By: <Electronically signed by Mekhi Lee MD in [place]> 09/02/25 1014 DD/ 0945 TD/TT: 09/02/25 1007 [employer]er: Troponin-I High Sensitivity Reviewed date:09/02/2025 05:05:20 PM Interpretation: Performing Lab:[facility], [address] [place] [phone] Notes/Report: Troponin-I High Sensitivity 119.0 <3.5-35.0 ng/L Critical value for TROP: Results called to and read back by: PAOLO Person calling: MARY Date: 09/02/25 Time: 1357 The Reese high sensitivity Troponin-I results should be used in conjunction with other diagnostic information such as ECG, clinical observations and information, and patient symptoms to aid in the diagnosis of NC. Complete Blood Count no Diff Reviewed date:09/03/2025 12:59:10 PM Interpretation: Performing Lab:[facility] [place], [address] [place] [address] Notes/Report: White Blood Count 2.5 4.8-10.8 X10*3/uL Red Blood Count 3.81 4.60-5.80 X10*6/uL Hemoglobin 11.1 14.0-18.0 g/dl Hematocrit 33.6 42.0-52.0 % Mean Corpuscular Volume 88.2 80.0-98.0 fL Mean Corpuscular Hemoglobin 29.1 27.0-33.0 pg Mean Corpuscular HGB Conc 33.0 31.0-36.0 g/dl Red Cell Distribution Width 14.6 11.0-16.0 % Platelet Count 73 160-400 X10*3/uL Mean Platelet Volume 12.3 9.4-12.4 fL NRBC Pct Auto 0.0 0.0-0.2 /100WBC NRBC Abs Auto 0.000 0.0-0.012 X10*3/uL Comprehensive Met. Panel Reviewed date:09/03/2025 12:58:41 PM Interpretation: Performing Lab:[facility] [place], [address] [place] [phone] Notes/Report: Sodium 138 135-145 mmol/L Potassium 3.8 3.3-5.1 mmol/L Chloride 102 96-108 mmol/L Carbon Dioxide 27 22-29 mmol/L Test was veri fied by repeat analysis. Anion Gap 13 12-20 Blood Urea Nitrogen 44 9-16 mg/dL Creatinine 1.61 0.5-1.4 mg/dL Creatinine Clr Calc Pharmacy 46.6 eGFR (calculated from the MDRD study equation) and eCrCl (calculated from the Cockcroft-Gault equation) are based on different parameters and may not yield comparable results. If eCrCl result is absurd, please check patient's height/weight. Estimated Glomerular Filt Rate 42 Chronic Kidney Disease: Estimated GFR < 60 mL/min/1.73m2 Severe Kidney Disease: Estimated GFR < 15 mL/min/1.73m2 Glucose Random 126 60-115 mg/dL Calcium 8.5 8.4-10.2 mg/dL Bilirubin Total 0.7 0.0-1.0 mg/dL Aspartate Amino Transferase 71 5-37 U/L Alanine Aminotransferase 51 0-40 U/L Total Protein 6.0 6.5-8.0 g/dL Albumin Level 3.5 3.5-5.0 g/dL Alkaline Phosphatase 57 39-117 U/L Liver Panel Reviewed date:09/03/2025 12:58:17 PM Interpretation: Performing Lab:[facility] [place], [address] [place] [phone] Notes/Report: Bilirubin Direct 0.3 0.0-0.5 mg/dL Glucose, Whole Blood Reviewed date:09/03/2025 12:58:50 PM Interpretation: Performing Lab:[facility] [place], [address] [place] [phone] Notes/Report: Glucose, Whole Blood 129 60-115 mg/dL METER # : [id number] Glucose, Whole Blood Reviewed date:09/03/2025 12:57:19 PM Interpretation: Performing Lab:[facility] [place], [address] [place] [phone] Notes/Report: Glucose, Whole Blood 141 60-115 mg/dL METER # : [id number] Glucose, Whole Blood Reviewed date:09/04/2025 12:10:58 PM Interpretation: Performing Lab:[facility] [place], [address] [place] [phone] Notes/Report: Glucose, Whole Blood 130 60-115 mg/dL METER # : [id number] Complete Blood Count Auto Di ff Reviewed date:09/04/2025 12:13:15 PM Interpretation: Performing Lab:[facility] [place], [address] [place] [phone] Notes/Report: White Blood Count 3.3 4.8-10.8 X10*3/uL Red Blood Count 3.76 4.60-5.80 X10*6/uL Hemoglobin 11.0 14.0-18.0 g/dl Hematocrit 33.3 42.0-52.0 % Mean Corpuscular Volume 88.6 80.0-98.0 fL Mean Corpuscular Hemoglobin 29.3 27.0-33.0 pg Mean Corpuscular HGB Conc 33.0 31.0-36.0 g/dl Red Cell Distribution Width 14.6 11.0-16.0 % Platelet Count 73 160-400 X10*3/uL Mean Platelet Volume 12.8 9.4-12.4 fL Neutrophils Percent Auto 65.5 45-73 % Imm Gran Pct Auto 0.6 0.0-0.4 % Lymphocytes Percent Auto 23.5 20-40 % Monocytes Percent Auto 10.4 2-11 % Eosinophils Percent Auto 0.0 0-4 % Basophils Percent Auto 0.0 0-2 % NRBC Pct Auto 0.0 0.0-0.2 /100WBC Neutrophils Absolute Auto 2.2 2.0-8.3 x10*3/uL Imm Gran Abs Auto 0.02 0.00-0.03 X10*3/uL Lymphocytes Absolute Auto 0.8 1.2-4.9 X10*3/uL Monocytes Absolute Auto 0.3 0.1-1.2 X10*3/uL Eosinophils Absolute Auto 0.0 0.0-0.4 X10*3/uL Basophils Absolute Auto 0.0 0.0-0.2 X10*3/uL NRBC Abs Auto 0.000 0.0-0.012 X10*3/uL White Blood Count 3.3 4.8-10.8 X10*3/uL Red Blood Count 3.76 4.60-5.80 X10*6/uL Hemoglobin 11.0 14.0-18.0 g/dl Hematocrit 33.3 42.0-52.0 % Mean Corpuscular Volume 88.6 80.0-98.0 fL Mean Corpuscular Hemoglobin 29.3 27.0-33.0 pg Mean Corpuscular HGB Conc 33.0 31.0-36.0 g/dl Red Cell Distribution Width 14.6 11.0-16.0 % Platelet Count 73 160-400 X10*3/uL Mean Platelet Volume 12.8 9.4-12.4 fL Neutrophils Percent Auto 65.5 45-73 % Imm Gran Pct Auto 0.6 0.0-0.4 % Lymphocytes Percent Auto 23.5 20-40 % Monocytes Percent Auto 10.4 2-11 % Eosinophils Percent Auto 0.0 0-4 % Basophils Percent Auto 0.0 0-2 % NRBC Pct Auto 0.0 0.0-0.2 /100WBC Neutrophils Absolute Auto 2.2 2.0-8.3 x10*3/uL Imm Gran Abs Auto 0.02 0.00-0.03 X10*3/uL Lymphocytes Absolute Auto 0.8 1.2-4.9 X10*3/uL Monocytes Absolute Auto 0.3 0.1-1.2 X10*3/uL Eosinophils Absolute Auto 0.0 0.0-0.4 X10*3/uL Basophils Absolute Auto 0.0 0.0-0.2 X10*3/uL NRBC Abs Auto 0.000 0.0-0.012 X10*3/uL CO RRECTED REPORT CO RRECTED REPORT Comprehensive [place]. Panel Fa st Reviewed date:09/04/2025 12:18:28 PM Interpretation: Performing Lab:[facility] [place], [address] [place] [phone] Notes/Report: Sodium 137 135-145 mmol/L Potassium 3.3 3.3-5.1 mmol/L Chloride 103 96-108 mmol/L Carbon Dioxide 27 22-29 mmol/L Anion Gap 10 12-20 Blood Urea Nitrogen 33 9-16 mg/dL Creatinine 1.11 0.5-1.4 mg/dL Creatinine Clr Calc Pharmacy 67.6 eGFR (calculated from the MDRD study equation) and eCrCl (calculated from the Cockcroft-Gault equation) are based on different parameters and may not yield comparable results. If eCrCl result is absurd, please check patient's height/weight. Estimated Glomerular Filt Rate > 60 Chronic Kidney Disease: Estimated GFR < 60 mL/min/1.73m2 Severe Kidney Disease: Estimated GFR < 15 mL/min/1.73m2 Glucose Fasting 189 60-99 mg/dL A fasting glucose of 126 mg/dl or greater on more than one occasion is considered diagnostic of diabetes. Calcium 8.3 8.4-10.2 mg/dL Bilirubin Total 0.8 0.0-1.0 mg/dL Aspartate Amino Transferase 62 5-37 U/L Alanine Aminotransferase 47 0-40 U/L Total Protein 6.0 6.5-8.0 g/dL Albumin Level 3.4 3.5-5.0 g/dL Alkaline Phosphatase 55 39-117 U/L Glucose, Whole Blood Reviewed date:09/04/2025 12:18:57 PM Interpretation: Performing Lab:[facility] [place], [address] [place] [phone] Notes/Report: Glucose, Whole Blood 120 60-115 mg/dL METER # : [id number] SLIDE REVIEW Reviewed date:09/04/2025 12:19:21 PM Interpretation: Performing Lab:[facility] [place], [address] [place] [phone] Notes/Report: SLIDE REVIEW VERIFIED Glucose, Whole Blood Reviewed date:09/04/2025 12:10:39 PM Interpretation: Performing Lab:[address] [phone] Notes/Report: Glucose, Whole Blood 150 60-115 mg/dL METER # : [id number] UA ClnCatch+Micro w/rflx Cul t (Not yet reviewed by provider) Interpretation: Performing Lab:[address] [phone] Notes/Report: [id number] Urine, Clean Catch Color Urine Yellow Appearance Urine Clear PH 6.5 5.0-9.0 Glucose Urine UA Negative Negative mg/dL Urine Blood Trace Negative Specific [place] - Urine 1.020 1.005-1.025 Urine Protein 30 (1+) Neg-Trace mg/dL Urine Ketones Trace Negative mg/dL Nitrite Urine Negative Negative Leukocyte Esterase Urine Negative Negative RBC Urine 6-10 0-2 /HPF WBC Urine 0-5 0-5 /HPF Squamous Epithelial Cell Urine 0-2 0-2 /HPF Bacteria Urine None Seen None Seen Hyaline Casts Urine 0-2 0-2 /LPF Complete Blood Count Auto Di ff Reviewed date:09/11/2025 03:31:43 PM Interpretation: Performing Lab:[facility] [place], [address] [place] [phone] Notes/Report: White Blood Count 7.9 4.8-10.8 X10*3/uL Red Blood Count 3.90 4.60-5.80 X10*6/uL Hemoglobin 11.5 14.0-18.0 g/dl Hematocrit 35.6 42.0-52.0 % Mean Corpuscular Volume 91.3 80.0-98.0 fL Mean Corpuscular Hemoglobin 29.5 27.0-33.0 pg Mean Corpuscular HGB Conc 32.3 31.0-36.0 g/dl Red Cell Distribution Width 15.4 11.0-16.0 % Platelet Count 349 160-400 X10*3/uL Mean Platelet Volume 9.7 9.4-12.4 fL Neutrophils Percent Auto 73.9 45-73 % Imm Gran Pct Auto 1.3 0.0-0.4 % Lymphocytes Percent Auto 15.3 20-40 % Monocytes Percent Auto 9.0 2-11 % Eosinophils Percent Auto 0.1 0-4 % Basophils Percent Auto 0.4 0-2 % NRBC Pct Auto 0.0 0.0-0.2 /100WBC Neutrophils Absolute Auto 5.8 2.0-8.3 x10*3/uL Imm Gran Abs Auto 0.10 0.00-0.03 X10*3/uL Lymphocytes Absolute Auto 1.2 1.2-4.9 X10*3/uL Monocytes Absolute Auto 0.7 0.1-1.2 X10*3/uL Eosinophils Absolute Auto 0.0 0.0-0.4 X10*3/uL Basophils Absolute Auto 0.0 0.0-0.2 X10*3/uL NRBC Abs Auto 0.000 0.0-0.012 X10*3/uL Prothrombin Time INR Reviewed date:09/11/2025 03:31:17 PM Interpretation: Performing Lab:[facility] [place], [address] [place] [phone] Notes/Report: Prothrombin Time 17.7 11.2-13.5 SEC INTERNATIONAL NORM RATIO 1.5 0.9-1.1 INTERNATIONAL NORMALIZED RATIO (INR) REFERENCE RANGES Reference Range For patients not on anticoagulant therapy: 0.9 - 1.1 INR ranges for oral anticoagulant therapy: For prevention and treatment of venous thrombosis and pulmonary embolism: 2.0 - 3.0 For acute myocardial infarction with aspirin therapy: 2.0 - 3.0 For acute myocardial infarction without aspirin therapy: 3.0 - 4.0 For patients with mechanical prosthetic heart valves: 2.5 - 3.5 Comprehensive Met. Panel Reviewed date:09/11/2025 03:30:54 PM Interpretation: Performing Lab:[facility] [place], [address] [place] [phone] Notes/Report: Sodium 138 135-145 mmol/L Potassium 4.7 3.3-5.1 mmol/L Chloride 106 96-108 mmol/L Carbon Dioxide 25 22-29 mmol/L Anion Gap 12 12-20 Blood Urea Nitrogen 22 9-16 mg/dL Creatinine 1.28 0.5-1.4 mg/dL Creatinine Clr Calc Pharmacy 58.6 eGFR (calculated from the MDRD study equation) and eCrCl (calculated from the Cockcroft-Gault equation) are based on different parameters and may not yield comparable results. If eCrCl result is absurd, please check patient's height/weight. Estimated Glomerular Filt Rate 55 Chronic Kidney Disease: Estimated GFR < 60 mL/min/1.73m2 Severe Kidney Disease: Estimated GFR < 15 mL/min/1.73m2 Glucose Random 130 60-115 mg/dL Calcium 9.4 8.4-10.2 mg/dL Bilirubin Total 0.9 0.0-1.0 mg/dL Aspartate Amino Transferase 43 5-37 U/L Alanine Aminotransferase 66 0-40 U/L Total Protein 7.5 6.5-8.0 g/dL Albumin Level 4.3 3.5-5.0 g/dL Alkaline Phosphatase 82 39-117 U/L Lactic Acid Reviewed date:09/11/2025 05:03:25 PM Interpretation: Performing Lab:[facility] [place], [address] [place] [phone] Notes/Report: Lactic Acid 0.8 0.5-2.0 mmol/L Magnesium Reviewed date:09/11/2025 03:28:59 PM Interpretation: Performing Lab:[facility] [place], [address] [place] [phone] Notes/Report: Magnesium 1.7 1.6-2.6 mg/dL Troponin-I High Sensitivity Reviewed date:09/11/2025 03:29:27 PM Interpretation: Performing Lab:[facility] [place], [address] [place] [phone] Notes/Report: Troponin-I High Sensitivity 13.6 <3.5-35.0 ng/L The Reese high sensitivity Troponin-I results should be used in conjunction with other diagnostic information such as ECG, clinical observations and information, and patient symptoms to aid in the diagnosis of NC. COVID-19 ID NOW (Reese) Reviewed date:09/11/2025 03:29:08 PM Interpretation: Performing Lab:[facility] [place], [address] [place] [phone] Notes/Report: IDNOW Serial# [id number] COVID-19 Test Negative Negative COVID-19 Note See [...] with other viruses. Testing facilities within the [facility] and its territories are required to [...] by authorized laboratories. Testing performed on the Reese ID NOW utilizing NAAT. Influenza A B2 ID NOW (Abbot t) Reviewed date:09/11/2025 03:27:42 PM Interpretation: Performing Lab:[facility] [place], [address] [place] [phone] Notes/Report: IDNOW Serial# [id number] Influenza A Negative Negative Influenza B2 Negative Negative Influenza A B2 Note See Note The Reese ID NOW Influenza A B2 test is [...] specimen and co-infection with Respiratory Syncytial Virus. NT Pro B Type Natriuretic Pe pt Reviewed date:09/11/2025 03:29:18 PM Interpretation: Performing Lab:[facility] [place], [address] [place] [phone] Notes/Report: NT Pro B Type Natriuretic Pept 998.8 <300 pg/mL Reference Range: Age Group (years) NT-proBNP (pg/ml) Interpretation All <300 Negative: HF unlikely For patients presenting to the ED with clinical suspicion of new onset or worsening HF, see below: 18 to <50 >299.9 to <450.0 Grayzone: Consider 50 to 75 >299.9 to <900.0 other causes of >75 >299.9 to <1800.0 NT-proBNP elevation 18 to <50 >449.9 Positive: HF likely 50-75 >899.9 >75 >1799.9 Note: Elevated NT-proBNP levels should be interpreted in the context of other clinical information. XR chest 2V (Not yet reviewe d by provider) Interpretation: Performing Lab: Notes/Report: [address] [address] XRay Report Signed Patient: Nam King MR#: [id number] 6 : 1950 Acct:[id number] Age/Sex: 75 / M ADM Date: 09/11/25 Loc: .ED Attending Dr: Ordering Physician: Kath Beaulieu Date of Service: 09/11/25 Procedure(s): XR chest 2V Accession Number(s): [id number] cc: Kevin Mtz MD; Kath Beaulieu Reason for Exam: weakness EXAMINATION: XR CHEST CLINICAL INFORMATION: weakness COMPARISON: Previous chest x-ray most recently in August 2025 TECHNIQUE: 2 views of the chest were obtained. FINDINGS: Similar increased opacities in both upper lobes. This may represent superimposition of bone and vascular markings. There are symmetric nodules at both lung bases probably representing nipple shadows. Increased right central hilar bronchovascular markings. This may represent airways disease. No focal consolidation. No pleural effusion or pneumothorax. Cardiac and mediastinal contours are stable. Degenerative changes of spine and left shoulder. Partially visualized gastric lap band. XR/XR chest 2V IMPRESSION: Increased right central bronchovascular markings questionable for airways disease. Similar opacities in both upper lobes may represent represent summation of bone and vascular structures and small symmetric nodules at both lung bases that may represent nipple shadows. Recommend chest x-ray or chest CT follow-up. Electronically signed by: Delma Fry MD 09/11/2025 02:17 PM EST Dictated By: Delma Fry MD Signed By: <Electronically signed by Delma Fry MD in [place]> 09/11/25 1417 DD/ 1330 TD/TT: 09/11/25 1338 [employer]: [place] [address] XRay Report Signed Patient: Nam King MR#: [id number] 6 : 1950 Acct:[id number] Age/Sex: 75 / M ADM Date: 09/11/25 Loc: .ED Attending Dr: Ordering Physician: Kath Beaulieu Date of Service: 09/11/25 Procedure(s): XR nam st 2V Accession Number(s): [id number] cc: Kevin Mtz MD; Kath Beaulieu Reason for Exam: weakness EXAMINATION: XR CHEST CLINICAL INFORMATION: weakness COMPARISON: Previous chest x-ray most recently in August 2025 TECHNIQUE: 2 views of the chest were obtained. FINDINGS: Similar increased opacities in both upper lobes. This may represent superimposition of b one and vascular markings. There are symmetric nodules at both lung bases probably representing nipple shadows. Increased right cent ral hilar bronchovascular markings. This may represent airways disease. No focal consolidation. No pleural effusion or pneumothorax. Cardiac and mediasti nal contours are stable. Degenerative changes of spine and left shoulder. Partially visualized gastric lap band. X R/XR chest 2V IMPRESSION: Increase d right central bronchovascular markings questionable for air ways disease. Similar opacities in both upper lobes may represent repres ent summation of bone and vascular structures and small symmetric nodu les at both lung bases that may represent nipple shadows. Recommend c hest x-ray or chest CT follow-up. Electronically jay d by: Delma Fry MD 09/11/2025 02:17 PM EST Dictated By: Delma Fry MD Signed By: <Electronically signed by Delma Fry MD in [place]> 09/11/25 1417 DD/ 1330 TD/TT: 09/11/25 1338 [employer]: JOSTIN Reason For Referral No Information Medications Medication SIG (Take, Route, Frequency, Duration) Notes Start Date End Date Status metFORMIN HCl ER 500 MG TAKE 1 TABLET BY MOUTH TWICE DAILY WITH MEALS Active Oseltamivir Phosphate 75 MG 1 capsule Orally Twice a day for 5 day(s) 09/01/2025 Active Metoprolol Succinate 25 MG 1 capsule Ora lly Once a day Active Tylenol 8 Hour 650 MG 2 tablets as neede d Orally every 8 hrs Not-Taking Eliquis 5 MG as directed Orally Active Ventolin HFA 108 (90 Base) MCG/ACT 1 puff as needed Inhalation every 4 hrs for 90 days 01/20/2020 Not-Taking Aspir-81 81 MG 1 tablet Orally Once [...] the vaccine at [facility] in [place]. Influenza High Dose Unknown 09/25/[address] [...] W/U Status Risk Notes Problem Thyroid nodule (460379873) Thyroid nodule (E04.1) Active confirmed Problem Prostatism (47755621) Prostatism (N40.0) Active confirmed Problem Hypercalcemia (02941487) Hypercalcemia (E83.52) Active confirmed Problem 32431236 Essential hypertension (I10) Active confirmed Problem Solitary nodule of lung (008922079) Lung nodule (R91.1) Active confirmed Problem 42650147 Type 2 diabetes, controlled, 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 confirmed Problem 723480393 History of angioplasty (Z98.62) Active confirmed Problem 19836172 Hypercholesterem ia (E78.00) Active confirmed Problem 98394755 [place] (obstructive sleep apnea) (G47.33) Active confirmed Problem 96311536 Sinusitis chroni c, frontal (J32.1) Active confirmed Problem 24987102 Acute idiopathic gout involving toe, 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) Active confirmed Problem 03565577 Extrasystoles (I49.49) Active confirmed Problem 41510120 PVC's (premature ventricular contractions) (I49.3) Active confirmed Problem 483253141 Aortic stenosis, moderate (I35.0) Active confirmed Vital [...] Location Date Provider Diagnosis Kevin Mtz MD [address] [place] [address] [address] [id number] 01/27/2025 Kevin Mtz Type 2 diabetes, controlled, 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 and Hypercholesteremia E78.00 Kevin Mtz MD [address] [place] [address] [address] [id number] 07/31/2025 Kevin Mtz Blood tests for rout ine general physical examination Z00.00 ; Encounter for administration of vaccine Z23 ; Essential hypertension I10 ; Type 2 diabetes, controlled, 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 and Hypercholesteremia E78.00 Kevin Mtz MD [address] [place] [address] [address] [id number] 09/11/2025 Kevin Mtz MD [address] [place] [address] [address] [id number] 02/03/2025 Kevin Mtz Type 2 diabetes, controlled, 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 ; Hypercholesteremia E78.00 and Essential hypertension I10 Kevin Mtz MD [address] [place] [address] [address] [id number] 08/07/2025 Kevin Mtz Annual physical exam Z00.00 ; Anemia D64.9 ; Nocturia R35.1 ; Prostatism N40.0 ; Elevated BUN R79.9 ; Type 2 diabetes, controlled, 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 ; Hypercholesteremia E78.00 ; Colon cancer screening Z12.11 ; Depression screening Z13.31 and Essential hypertension I10 Kevin Mtz MD [address] [place] [id number] 09/01/2025 Kevin Mtz Influenza J11.1 Kevin Mtz MD [address] [place] [id number] 01/20/2025 Kevin Mtz MD [address] [place] [address] [address] [place] [id number] 09/04/2025 Kevin Mtz Assessments Encounter Date Diagnosis (ICD Code) Assessment Notes Treatment Notes Treatment Clinical Notes Section Notes 01/27/2025 Type 2 diabetes, controlled, with neuropathy (ICD-10 - E11.40) 07/31/2025 Blood tests for routine general physical examination (ICD-10 - Z00.00) 07/31/2025 Encounter for administration of vaccine (ICD-10 - Z23) 02/03/2025 Type 2 diabetes, controlled, with neuropathy (ICD-10 - E11.40) doing well on meds and exercise 08/07/2025 Annual physical exam (ICD-10 - Z00.00) labs reviewed and discussed with patient 08/07/2025 Anemia (ICD-10 - D64.9) stable, will continue to monitor, future labs ordered 09/01/2025 Influenza (ICD-10 - J11.1) patient verbalized understyanding of medication and directions for use 01/27/2025 Hypercholesteremia (ICD-10 - E78.00) 07/31/2025 Essential [...] THYROID 08/22/2023 Complete Blood Count Auto Diff US thyroid 08/15/2023 US thyroid 08/17/2023 XR chest 1V 09/02/2025 XR chest 2V 09/11/2025 UA ClnCatch+Micro w/rflx Cult 09/11/2025 Next Appt Details Provider Name:Kevin ibarra, 09/12/2025 10:30:00 AM, [address] [place] [address], [address], [phone], Provider Name:Kevin ibarra, 09/12/2025 10:30:00 AM, [address] [place] [address], [address], [phone], Provider Name:Kevin ibarra, 02/10/2026 07:30:00 AM, [address] [place] [address], [address], [phone], Provider Name:Kevin ibarra, 02/17/2026 10:00:00 AM, [address] [place] [address], [address], [phone], Provider Name:Kevin ibarra, 08/03/2026 07:30:00 AM, [address] [place] [address], [address], [phone], Provider Name:Kevin wilkinsonr, 08/10/2026 10:30:00 AM, [address] [facility], [address], [place], [place], [phone], Insurance Providers Payer Name Payer Address Payer Phone Subscriber Number Group Number Insured Name Patient Relationship to Insured Coverage Start Date Coverage End Date [employer]AN [facility] [address] [place] [phone] [id number] Nam King Self - patient is the insured MEDICARE NHIC [address] [place] [address] [id number] Nam King Self - patient is the [...]
--- OUTSIDE RECORDS SUMMARY | 2025-09-11 17:33 | XMS_ITS | Clinical Summary ---
Author Organization [facility] Address [address] [place] [address] Phone Care Team Providers Care Printed Circuit Boards Beveler Name Role Phone Kevin Mtz MD Primary [...] this topic Medical Devices Implanted Type Area Awning Finisher Device Identifier Shelf Expiration Date Model / Serial / Lot Bone Cement Antibiotic Refobacin - [id number] Implanted:Qty: 1 on 05/10/2023 by Alex Moralez MD at [facility] Left: Knee [employer] 06/05/2025 [id number] / / [id number] Bone Cement Antibiotic Refobacin - [id number] Implanted:Qty: 1 on 05/10/2023 by Alex Moralez MD at [facility] Left: Knee [employer] 06/05/2025 [id number] / / [id number] Knee Implant Sz 12 Component Femoral Persona Ps Universal Cemented Std Lt - [id number] Implanted:Qty: 1 on 05/10/2023 by Alex Moralez MD at [facility] Left: Knee [employer] 04/23/2032 [id number] / / [id number] Knee Patella 10.0x41mm Persona All Polyethylene Cemented Conventional - [id number] Implanted:Qty: 1 on 05/10/2023 by Alex Moralez MD at [facility] Left: Knee [employer] 01/27/2027 [id number] / / [id number] Knee Implant 5.0deg Component Tibial Persona Titanium Stemmed Cemented Lt Size H - [id number] Implanted:Qty: 1 on 05/10/2023 by Alex Moralez MD at [facility] Left: Knee [employer] 09/06/2032 [id number] / / [id number] Knee Insert 11mm L 10 12 Component Surface Persona Ps Polyethylene Fixed Conventional Lt Fem Tib Gh - [id number] Implanted:Qty: 1 on 05/10/2023 by Alex Moralez MD at [facility] Left: Knee [employer] 09/12/2027 [id number] / / [id number] Procedures Procedure Name Priority Date/Time Associated Diagnosis Comments BASIC METABOLIC PANEL (BMP) Routine 03/24/2023 9:12 AM EDT Primary localized osteoarthrosis of right lower leg from Last 3 Months or Most Recently Relevant to Health Maintenance Results * (ABNORMAL) Basic metabolic panel (03/24/2023 9:12 AM EDT) SODIUM 141 133 - 146 mmol/L [facility] CHLORIDE 102 96 - 108 mmol/L [facility] POTASSIUM 4.5 3.3 - 5.1 mmol/L [facility] CO2 28 21 - 35 mmol/L [facility] BUN 17 6 - 19 mg/dL [facility] CREATININE 0.90 0.5 - 1.5 mg/dL [facility] GLUCOSE 136(H) 70 - 99 mg/dL [facility] CALCIUM 10.2 8.4 - 10.3 mg/dL [facility] EGFR 90 >59 mL/min/1.7 3m2 [facility] Comment:Estimated glomerular filtration rate calculated using the CKD-EPI refit equation. ANION GAP 16 10 - 20 mmol/L [facility] Blood 03/24/2023 9:12 AM EDT 03/24/2023 9:19 AM EDT us Alex Moralez MD LAB BLOOD BKR ORDERABLES Saige edward Result [facility] [address] [place] [address] from Last 3 Months or Most Recently Relevant to Health Maintenance [place] [address] [place] [address] MEDICARE HMO REPLACEMENT MEDICARE HMO REPLACEMENT MEDICARE HMO REPLACEMENT MEDICARE HMO REPLACEMENT MEDICARE HMO REPLACEMENT [facility] [place] MEDICARE HMO REPLACEMENT [facility] [place] MEDICARE HMO REPLACEMENT MEDICARE HMO REPLACEMENT [facility] [place] MEDICARE HMO REPLACEMENT Care Teams Printed Circuit Boards Beveler Relationship Specialty Start Date End Date Kevin Mtz MD [address] [place] [address] Dr KITCHEN [address] [place] [address] [place] [address] PCP - General Internal Medicine 12/31/20 Additional Source Comments The information contained in this document represents components of the legal health record. It is not the complete legal health record.[facility]
--- OUTSIDE RECORDS SUMMARY | 2025-09-11 17:33 | XMS_ITS | Encounter Summary ---
Author Organization [facility] Address [address] [place] [phone] Phone Care Team Providers Care Store Hand Name Role Phone Kevin Mtz MD Primary Care Provider Encounter Details Date Type Department Care Team (Late st Contact Info) Description 05/10/2023 Procedure Pass OR Admitting Dept - Virtual Department [address] [place] [address] Social History Tobacco Use Types Packs/Day Years [...] on filedocumented in this encounter Care Teams Store Hand Relationship Specialty Start Date End Date Kevin Mtz MD [address] [place] [address] [place] [address] PCP - General Internal Medicine 12/31/20 documented as of this encounter Additional Source Comments The information contained in this document represents components of the legal health record. It is not the complete legal health record.[facility]
--- OUTSIDE RECORDS SUMMARY | 2025-09-11 17:33 | XMS_ITS | Clinical Summary ---
Author Organization [facility] Address [address] [place] [address] Care Team Providers Care Television Station Manager Name Role Phone Unavailable Primary Care [...]
--- OUTSIDE RECORDS SUMMARY | 2025-09-11 17:33 | XMS_ITS | Encounter Summary ---
Author Organization [facility] Address [address] [place] [address] Phone Care Team Providers Care Floral Decorator Name Role Phone Kevin Mtz MD Primary Care Provider Encounter Details Date Type Department Care Team (Late st Contact Info) Description 04/25/2023 Ancillary Orders [address] [address] Alice Ahumada PA-C [address] [place] [address] Orthopedics & Sports Medicine, [place] [address] [email or web address] Left knee pain, unspecified chronicity Social History [...] chronicity documented in this encounter Care Teams Floral Decorator Relationship Specialty Start Date End Date Kevin Mtz MD [address] [place] [address] [place] [address] PCP - General Internal Medicine 12/31/20 documented as of this encounter Additional Source Comments The information contained in this document represents components of the legal health record. It is not the complete legal health record.[facility]
--- OUTSIDE RECORDS SUMMARY | 2025-09-11 17:33 | XMS_ITS | Encounter Summary ---
Author Organization [facility] Address [address] [place] [address] [place] [address] Phone Care Team Providers Care Activities Volunteer Name Role Phone Kevin Mtz MD Primary Care Provider Encounter Details Date Type Department Care Team ([facility] st Contact Info) Description 04/25/2023 Ancillary Orders [facility] Orthopedics & Sports Medicine [address] [place] [address] Alice Ahumada PA-C [address] [place] [address] Orthopedics & Sports Medicine, [facility] [place] [address] [email or web address] Social History Tobacco Use Types Packs/Day Years [...] on filedocumented in this encounter Care Teams Activities Volunteer Relationship Specialty Start Date End Date Kevin Mtz MD [address] [place] [address] [place] [address] PCP - General Internal Medicine 12/31/20 documented as of this encounter Additional Source Comments The information contained in this document represents components of the legal health record. It is not the complete legal health record.[facility]
--- NOTE | 2025-09-11 17:47 | PC.NURSE ---
Addendum entered by Lilliam Jansen RN 09/11/25 18:07: patient medicated with albumin per MAR on secondary IV Addendum entered by Lilliam Jansen RN 09/11/25 17:57: while at bedside, patient bp dropped to 67/43, ED provider alerted. LR placed on pressure bag wide open. patient remains alert and oriented and speaking in full sentences. patient afib rate 110s. bedside manual bp done 84/52. second IV started on the RFA #20. patient placed in [place]. Original Note: RN was alerted that patient became hypotensive, patient pressure was noted to be 86/37 upon entering room. ED provider Dr Uribe was at bedside doing bedside ultrasound, patient is awake, alert and oriented. states he felt dizzy when he went to CT and they had him stand and lay down. patient speaking in clear full sentences. 1000cc LR started per provider bedside order.
[2025-09-11 18:00] LABS: Glucose, Whole Blood 190 mg/dL (60-115)
[2025-09-11] MEDS: Albumin Human 25 % 100 ML 133.33 ML IV ×4 (18:06→20:09)
[2025-09-11] MEDS: Lactated Ringers 1,000 ML 999 ML IV (18:06)
--- NOTE | 2025-09-11 19:29 | PC.NURSE ---
assumed care of pt, pt medicated per MAR, b/p is slowly increasing, documented in worklist.
[2025-09-11] MEDS: vancomycin/NS 2,000 MG/500 ML PLAST..BAG 250 MG IV (20:19)
--- NOTE | 2025-09-11 21:40 | PHA.MEDREC ---
Pharmacy Consult ? Medication Reconciliation Pharmacy has completed the medication reconciliation. Spoke with pt and , pt states there have been no changes since his last admission one week ago.
[2025-09-11 21:42] LABS: Lipase 45 U/L (8-78)
--- NOTE | 2025-09-11 21:45 | P.HPHOSP_ITS ---
History of Present Illness Date of Service: 09/11/25 Attending physician on admission: Jose Gibbons Chief Complaint: dizzy, weak, fever Patient is a 75-year-old male with a past medical history significant for new onset AFib on Eliquis, T2 dm on metformin, HTN and CAD, who presented to the ED due to dizziness weakness and fever. The patient reports that he was recently diagnosed with a viral infection last week however his symptoms have been worsening. He had a fever initially which resolved however returned today. He has a slight headache with congestion and rhinorrhea. No neck pain, sensitivity to light, sore throat or cough. His significant other bedside reports that he has a poor diet and does not eat much. 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 Review of Systems 2 Constitutional: Constitutional: Denies body ache(s), Reports chills, Reports fatigue and Reports fever(s) Eyes: Eyes: Denies change in vision ENT: Reports as per HPI and Denies neck pain Cardiovascular: Cardiovascular: Denies chest pain, Denies rapid heart rate, Denies leg edema, Denies lightheadedness and Denies dyspnea Respiratory: Respiratory: Denies chest congestion, Denies cough, Denies dyspnea and Denies wheezing Gastrointestinal: Gastrointestinal: Denies abdominal pain, Denies diarrhea, Denies nausea and Denies vomiting Genitourinary: Genitourinary: Denies dysuria and Denies urinary frequency Musculoskeletal: Musculoskeletal: Denies myalgias and Denies neck pain Integumentary/Breasts: Skin/Breast: Denies rash Neurologic: Denies confusion Psychiatric: Psychiatric: Denies confusion Endocrine: Endocrine: Reports fatigue Hematologic/Lymphatic: Hematologic/Lymphatic: Denies easy bleeding Allergic/Immunologic: Allergic/Immunologic: Denies wheezing [facility] Medical History (Updated 09/11/25 @ 22:48 by Elvira Wilson PA-C) Paroxysmal A-fib Trace mitral valve regurgitation Essential hypertension Type 2 diabetes mellitus with unspecified complications Bone spur of ankle Arthritis Back pain Sleep apnea with use of continuous positive airway pressure (CPAP) Hyperlipidemia Hypertension Functional capacity: independent ambulation Family History Father No problems noted. Mother No problems noted. Surgical History (Updated 09/03/25 @ 16:20 by Regulo Shafer MD) History of total left knee replacement H/O varicose vein ligation Hx of laparoscopic gastric banding History of colonoscopy Social History Household Members: Spouse Housing: House Are you a primary adult day care worker to a significant other at home: No Do you presently have visiting nurse or other home services: No Alcohol intake: current Alcohol intake frequency: holidays/special occasions only Patient Tobacco Use Status: Former Tobacco user Tobacco use type: Cigarette Years Smoked: 5 +/- Second Hand Smoke Exposure: No service: No Meds Allergies Allergy/AdvReac Type Severity Reaction Status Date / Time No Known Allergies (No Known Allergy Verified 09/11/25 13:15 Allergies*) Active Medications: Current Medications Apixaban (Apixaban 5 Mg Tablet) 5 mg PO BID [facility] Fluticasone Propionate (Fluticasone Propionate Nasal 16 Gm [place]) 1 spray NOSTRIL-B DAILY [facility] Multivitamins/Vitamin C (Multivitamin Tablet) 1 tab PO DAILY [facility] Non-Formulary Medication (Aspirin) 81 mg PO DAILY [facility] Home Medications ?Medication ?Instructions ?Recorded ?Confirmed ?Last Taken ?Type amlodipine 10 mg tablet 10 mg PO DAILY 06/17/2104/3009/11/25 History atorvastatin 80 mg tablet 80 mg PO BEDTIME 06/20/2209/11/25 History valsartan 320 1 tab PO DAILY 07/04/2304/3009/11/25 History mg-hydrochlorothiazide 12.5 mg tablet metformin 500 mg tablet,extended 500 mg PO BID 4 09/11/25 09/11/25 History release 24 hr fluticasone propionate 50 1 spray intranasal DAILY 01/2709/11/25 09/11/25 History mcg/actuation nasal spray,suspension aspirin 81 mg tablet 81 mg PO DAILY 09/02/2504/3009/11/25 History multivitamin 1 tab PO DAILY 09/11/2504/3009/11/25 History Physical Exam 2 Vital Signs and Narrative: Vital Signs: Last Vital Signs Temp 98.6 F 09/11/25 20:09 Pulse 89 09/11/25 20:09 Resp 18 09/11/25 20:09 BP 105/60 09/11/25 20:09 Pulse Ox 97 09/11/25 20:09 O2 Del Method Room Air 09/11/25 20:09 BMI result Body Mass Index 24.5 General: AOx3, no acute distress Resp: CTA bilaterally, no wheezing, crackles or rhonchi CVS: irregularly irregular, +murmur GI: +BS, NT, no distention Skin: Warm, dry Neuro: Cranial nerves II-XII grossly intact bilaterally. Motor grossly intact bilaterally. no neck pain or photosensitivity. Extremities: No pitting edema Psych: Appropriate affect Const: General: No confusion Orientation/consciousness: No confusion Neuro: General: No confusion Results Labs 09/11/25 13:24 09/11/25 13:24 Labs: Laboratory Results - last 24 hr 09/11/25 09/11/25 09/11/25 13:24 15:07 17:54 MCV 91.3 MCH 29.5 MCHC 32.3 RDW 15.4 Plt Count 349 D MPV 9.7 Immature Gran % (Auto) 1.3 H Neut % (Auto) 73.9 H Lymph % (Auto) 15.3 L Bledsoe % (Auto) 9.0 Eos % (Auto) 0.1 Baso % (Auto) 0.4 Lymph # (Auto) 1.2 Bledsoe # (Auto) 0.7 Eos # (Auto) 0.0 Baso # (Auto) 0.0 Abs Immat Gran (auto) 0.10 H Absolute Neuts (auto) 5.8 Absolute Nucleated RBC 0.000 Nucleated RBC % (auto) 0.0 PT 17.7 H INR 1.5 H Anion Gap 12 Estim Creat Clear Calc 58.6 Estimated GFR 55 POC Glucose 190 H Random Glucose 130 H Lactic Acid 0.8 Calcium 9.4 D Magnesium 1.7 Total Bilirubin 0.9 AST 43 H ALT 66 H Alkaline Phosphatase 82 Troponin I High Sens 13.6 D NT-Pro-B Natriuret Pep 998.8 H Total Protein 7.5 Albumin 4.3 Lipase 45 Urine Color Yellow Urine Appearance Clear Urine pH 6.5 Ur Specific [place] 1.020 Urine Protein 30 (1+) H Urine Glucose (UA) Negative Urine Ketones Trace Urine Blood Trace H Urine Nitrite Negative Ur Leukocyte Esterase Negative Urine RBC 6-10 H Urine WBC 0-5 Ur Squamous Epith Cells 0-2 Urine Bacteria None Seen Hyaline Casts 0-2 COVID-19 (EVAN) Negative COVID-19 Clin Com See Note Influenza Type A (RADHA) Negative Influenza Type B (RADHA) Negative Influenza A & B Note See Note Imaging Radiologist's Impressions: Impressions Chest X-Ray 09/11/25 13:30 IMPRESSION: Increased right central bronchovascular markings questionable for airways disease. Similar opacities in both upper lobes may represent represent summation of bone and vascular structures and small symmetric nodules at both lung bases that may represent nipple shadows. Recommend chest x-ray or chest CT follow-up. Electronically signed by: Delma Fry MD 09/11/2025 02:17 PM [facility] Assessment and Plan (1) Fever: Status: Acute (2) Hypotension: Status: Acute (3) SIRS (systemic inflammatory response syndrome): Status: Acute Plan Patient is a 75-year-old male with a past medical history significant for new onset AFib on Eliquis, T2 dm on metformin, HTN and CAD, who presented to the ED due to dizziness weakness and fever. SIRS+, fever, tachycardia, source unknown, likely viral - hypotension likely polypharmacy - RPP - A/P CT - blood cultures pending - vancomycin and ceftriaxone prophylactically - moniotr CBC and CMP hypotension, likely polypharmacy, responsive to albumin and IVF - hold amlodpine and HCTZ-valsartan - continue metoprolol and spironolactone anemia, chronic and stable - monitor CBC paroxysmal a fib - metorpolol and eliquis T2DM - SSI - diabetic diet - hold metformin CAD - ASA and statin esophagela wall thickening on CT - pt asx - f/u outpt with GI full code VTE prophy: eliquis Pt SIRS+ with hypotension, likley due to polypharmacy, requiring admission for at least 2 midnights stay for further evaluation and monitoring. Quality Stroke Does the patient have a stroke diagnosis?: No VTE Prior VTE?: No VTE Risk Level:: Medical - moderate - high VTE Device Contraindication: Treatment Not Indicated VTE Drug Contraindication: N/A - Med Ordered
[2025-09-12] VITALS (24 sets, daily range): BP systolic 94–176; BP diastolic 57–98; PULSE 75–135; RESP 16–20; TEMP 36.8–39.4; O2SAT 10–99; BMI 24.5
[2025-09-12 01:08] LABS: Glucose, Whole Blood 99 mg/dL (60-115)
--- NOTE | 2025-09-12 06:51 | ECG_ITS ---
Test Reason : raoud heart rate Blood Pressure : */* mmHG Vent. Rate : 136 BPM Atrial Rate : * BPM P-R Int : * ms QRS Dur : 130 ms QT Int : 282 ms P-R-T Axes : * -23 138 degrees QTcB Int : 424 ms Atrial fibrillation with rapid ventricular response Left bundle branch block Abnormal ECG When compared with ECG of 11-Sep-2025 14:49, No significant change was found Referred By: Jose Gibbons Electronically Signed By: Zhang Jasmine
[2025-09-12 07:01] LABS: Glucose, Whole Blood 96 mg/dL (60-115)
[2025-09-12 07:04] LABS: MANUAL DIFF FLAG NO
[2025-09-12 07:07] LABS: Hematocrit 36.0 % (42.0-52.0); Hemoglobin 11.6 g/dl (14.0-18.0); Imm Gran Abs Auto 0.07 X10*3/uL (0.00-0.03); Imm Gran Pct Auto 0.9 % (0.0-0.4); Lymphocytes Absolute Auto 1.2 X10*3/uL (1.2-4.9); Mean Corpuscular HGB Conc 32.2 g/dl (31.0-36.0); Mean Corpuscular Hemoglobin 29.1 pg (27.0-33.0); Mean Corpuscular Volume 90.2 fL (80.0-98.0); NRBC Abs Auto 0.000 X10*3/uL (0.0-0.012); NRBC Pct Auto 0.0 /100WBC (0.0-0.2); Platelet Count 311 X10*3/uL (160-400); Red Blood Count 3.99 X10*6/uL (4.60-5.80); White Blood Count 8.0 X10*3/uL (4.8-10.8)
[2025-09-12] MEDS: Metoprolol Succinate ER 25 MG TAB.ER.24H PO (07:24)
[2025-09-12 07:30] LABS: Alanine Aminotransferase 51 U/L (0-40); Albumin Level 4.9 g/dL (3.5-5.0); Alkaline Phosphatase 71 U/L (39-117); Anion Gap 14 (12-20); Aspartate Amino Transferase 38 U/L (5-37); Blood Urea Nitrogen 17 mg/dL (9-16); Calcium 9.2 mg/dL (8.4-10.2); Carbon Dioxide 25 mmol/L (22-29); Chloride 103 mmol/L (96-108); Creatinine Clr Calc Pharmacy 63.6; Estimated Glomerular Filt Rate > 60; Potassium 4.3 mmol/L (3.3-5.1); Sodium 138 mmol/L (135-145); Total Protein 7.6 g/dL (6.5-8.0)
--- NOTE | 2025-09-12 07:42 | HO.PM.IMPN ---
Subjective Subjective Date of Service: 09/12/25 Interval History: Pt became significantly tachycardic this morning with HR in the 180s while urinating, noted to desat into the 70s on RA At rest continued to be tachycardic in the 130s; BP elevated, will give metoprolol 5 mg IV Currently satting at 91 % on 10 L OxyMask; will check CXR, BNP Pt himself resting comfortably in bed, asymptomatic Denies SOB, difficulty breathing, or chest pain Infectious workup so far negative; waiting on respiratory panel Review of Systems Review of Systems: Yes all other systems are reviewed and are negative Physical Exam Exam: Exam: General: AOx3, no acute distress. Resting comfortably in bed Resp: Bibasilar crackles CVS: Irregularly irregular rhythm, tachycardic GI: +BS, NT, no distention Skin: Warm, dry Neuro: Cranial nerves II-XII grossly intact bilaterally. Motor grossly intact bilaterally Extremities: No edema Psych: Appropriate affect Vital Signs: Vital Signs: Last Vital Signs Temp 100.2 F 09/12/25 07:13 Pulse 135 H 09/12/25 07:24 Resp 20 09/12/25 07:13 BP 176/98 H 09/12/25 07:24 Pulse Ox 91 L 09/12/25 07:26 O2 Del Method Oxymask 09/12/25 07:26 O2 Flow Rate 10 09/12/25 07:26 BMI result Body Mass Index 24.5 Objective Data Active Medications Acetaminophen (Acetaminophen 325 Mg Tablet) 650 mg PO Q6H PRN PRN Reason: Pain, Mild 1-3,fever,headache Apixaban (Apixaban 5 Mg Tablet) 5 mg PO BID [facility] Aspirin (Aspirin Enteric Coated 81 Mg Tablet.) 81 mg PO DAILY [facility] Atorvastatin Calcium (Atorvastatin Calcium 80 Mg Tablet) 80 mg PO BEDTIME [facility] Last Admin: 09/11/25 22:30 Dose: 80 mg Documented By: SARKIS Calcium Carbonate (Calcium Carbonate 750 Mg Tab.Chew) 750 mg PO Q4H PRN PRN Reason: Heartburn Dextrose (Dextrose 50 % 25 Gm/50 Ml Syringe) 25 gm IVPUSH Q15M PRN; Protocol PRN Reason: per Hypoglycemia Standing Ord. Fluticasone Propionate (Fluticasone Propionate Nasal 16 Gm [place]) 1 spray NOSTRIL-B DAILY [facility] Glucose (Glucose Gel 15 Gm Gel..Gram.) 15 gm PO Q15M PRN; Protocol PRN Reason: per Hypoglycemia Standing Ord. Insulin Human Lispro (Insulin Lispro 100 Unit/Ml 3 Ml Vial) 0 unit SUBCUT QIDACHS [facility]; Protocol Magnesium Hydroxide (Milk Of Magnesia 30 Ml Oral.Susp) 30 ml PO DAILY PRN PRN Reason: Constipation Melatonin (Melatonin 3 Mg Tablet) 6 mg PO BEDTIME PRN PRN Reason: Insomnia Metoprolol Succinate (Metoprolol Succinate Er 25 Mg Tab.Er.24h) 25 mg PO DAILY [facility]; Protocol Last Admin: 09/12/25 07:24 Dose: 25 mg Documented By: ORALIA Multivitamins/Vitamin C (Multivitamin Tablet) 1 tab PO DAILY [facility] Ondansetron HCl (Ondansetron Hcl 4 Mg/2 Ml Vial) 4 mg IVPUSH Q8H PRN PRN Reason: Nausea and Vomiting Oxycodone HCl (Oxycodone Hcl Immed Release 5 Mg Tablet) 5 mg PO Q6H PRN PRN Reason: Pain, Severe (Pain Scale 7-10) Sodium Chloride (0.9 % Sodium Chloride Flush 3 Ml Syringe) 3 ml IVFLUSH QSHIFT [facility] Last Admin: 09/12/25 02:30 Dose: Not Given Documented By: J CARLOS Non-Admin Reason: Patient Asleep Spironolactone (Spironolactone 25 Mg Tablet) 25 mg PO DAILY [facility]; Protocol Last Admin: 09/12/25 07:22 Dose: 25 mg Documented By: ORALIA Tramadol HCl (Tramadol Hcl 50 Mg Tablet) 50 mg PO Q6H PRN PRN Reason: Pain, Moderate(Pain Scale 4-6) Labs 09/12/25 06:38 09/12/25 06:38 Labs: Laboratory Results - last 24 hr 09/11/25 09/11/25 09/11/25 13:24 15:07 17:54 MCV 91.3 MCH 29.5 MCHC 32.3 RDW 15.4 Plt Count 349 D MPV 9.7 Immature Gran % (Auto) 1.3 H Neut % (Auto) 73.9 H Lymph % (Auto) 15.3 L [place] % (Auto) 9.0 Eos % (Auto) 0.1 Baso % (Auto) 0.4 Lymph # (Auto) 1.2 [place] # (Auto) 0.7 Eos # (Auto) 0.0 Baso # (Auto) 0.0 Abs Immat Gran (auto) 0.10 H Absolute Neuts (auto) 5.8 Absolute Nucleated RBC 0.000 Nucleated RBC % (auto) 0.0 PT 17.7 H INR 1.5 H Anion Gap 12 Estim Creat Clear Calc 58.6 Estimated GFR 55 POC Glucose 190 H Random Glucose 130 H Lactic Acid 0.8 Calcium 9.4 D Magnesium 1.7 Total Bilirubin 0.9 AST 43 H ALT 66 H Alkaline Phosphatase 82 Troponin I High Sens 13.6 D NT-Pro-B Natriuret Pep 998.8 H Total Protein 7.5 Albumin 4.3 Lipase 45 Urine Color Yellow Urine Appearance Clear Urine pH 6.5 Ur Specific [place] 1.020 Urine Protein 30 (1+) H Urine Glucose (UA) Negative Urine Ketones Trace Urine Blood Trace H Urine Nitrite Negative Ur Leukocyte Esterase Negative Urine RBC 6-10 H Urine WBC 0-5 Ur Squamous Epith Cells 0-2 Urine Bacteria None Seen Hyaline Casts 0-2 COVID-19 (EVAN) Negative COVID-19 Clin Com See Note Influenza Type A (RADHA) Negative Influenza Type B (RADHA) Negative Influenza A & B Note See Note 09/12/25 09/12/25 09/12/25 01:00 06:38 06:52 MCV 90.2 MCH 29.1 MCHC 32.2 RDW 15.6 Plt Count 311 MPV 9.6 Immature Gran % (Auto) 0.9 H Neut % (Auto) 77.7 H Lymph % (Auto) 15.2 L [place] % (Auto) 5.9 Eos % (Auto) 0.0 Baso % (Auto) 0.3 Lymph # (Auto) 1.2 [place] # (Auto) 0.5 Eos # (Auto) 0.0 Baso # (Auto) 0.0 Abs Immat Gran (auto) 0.07 H Absolute Neuts (auto) 6.2 Absolute Nucleated RBC 0.000 Nucleated RBC % (auto) 0.0 PT INR Anion Gap 14 Estim Creat Clear Calc 63.6 Estimated GFR > 60 POC Glucose 99 96 Random Glucose 106 Lactic Acid Calcium 9.2 Magnesium Total Bilirubin 1.1 H AST 38 H ALT 51 H Alkaline Phosphatase 71 Troponin I High Sens NT-Pro-B Natriuret Pep Total Protein 7.6 Albumin 4.9 Lipase Urine Color Urine Appearance Urine pH Ur Specific [place] Urine Protein Urine Glucose (UA) Urine Ketones Urine Blood Urine Nitrite Ur Leukocyte Esterase Urine RBC Urine WBC Ur Squamous Epith Cells Urine Bacteria Hyaline Casts COVID-19 (EVAN) COVID-19 Clin Com Influenza Type A (RADHA) Influenza Type B (RADHA) Influenza A & B Note Assessment and Plan (1) SIRS (systemic inflammatory response syndrome): Status: Acute (2) Atrial fibrillation with RVR: Status: Acute (3) Acute and chronic respiratory failure with hypoxia: Status: Acute Plan Patient is a 75-year-old male with a past medical history significant for new onset AFib on Eliquis, T2 dm on metformin, HTN and CAD, who presented to the ED due to dizziness weakness and fever. SIRS+, fever, tachycardia, source unknown, likely viral - hypotension likely polypharmacy - respiratory panel pending - A/P CT negative - blood cultures pending - vancomycin and ceftriaxone prophylactically - moniotr CBC and CMP AFib with RVR - earlier this morning patient's HR increased to 180s while urinating - has been sustaining 120-130s at rest - we will give metoprolol 5 mg IV, resume home medications - repeat CXR, BNP - cardiology consult - monitor on telemetry Acute hypoxic respiratory failure - pt noted to be desatting to 72% on RA - possibly secondary to AFib with RVR - will repeat CXR - titrate supplemental O2 >92, wean as tolerated hypotension, likely polypharmacy, responsive to albumin and IVF - the pt was hypotensive as low as 72/45 in the ED - currently pt hypertensive at 176/98 - will resume amlodpine and HCTZ-valsartan now that BP has - continue metoprolol and spironolactone anemia, chronic and stable - monitor CBC paroxysmal a fib - metorpolol and eliquis T2DM - SSI - diabetic diet - hold metformin CAD - ASA and statin esophagela wall thickening on CT - pt asx - f/u outpt with GI full code VTE prophy: eliquis Pt SIRS+ with hypotension, likely due to polypharmacy, and no complicated by acute hypoxic respiratory failure and AFib with RVR. Pt requires continued hospitalization for monitoring, treatment, and additional workup and specialist consultation with Cardiology. Quality Stroke Does the patient have a stroke diagnosis?: No VTE Prior VTE?: No VTE Risk Level:: Medical - moderate - high VTE Device Contraindication: Treatment Not Indicated VTE Drug Contraindication: N/A - Med Ordered
--- NOTE | 2025-09-12 08:03 | PC.NURSE ---
Pt. admitted at approx. 0100 from ED this AM. Pt. Alert and oriented x4. Pt. denies chest pain/pain/SOB. 97% on room air on arrival. Lung sounds clear throughout. Afib in the 90's on telemetry until 0638 this AM when pt. noted on tele monitor with HR up to 180's. Upon entering pt. room, pt. attempting to void in urinal in bed. Pt. denies palpitations/chest pain. Pt. HR decreased to 120's to 130's when done urinating. 12 lead EKG done and sent to Helga hC PA Pt. O2 sat at that time noted to be 78% on room air. Pt. placed on 10L Oxymask to maintain sat's of 91-92%. Pt. slightly dyspneic. Handover to FANNIE Vyas at bedside with Helga Ch at bedside at 1930.
[2025-09-12] MEDS: Aspirin Enteric Coated 81 MG TABLET.DR PO (08:25)
[2025-09-12] MEDS: 0.9 % Sodium Chloride Flush 3 ML SYRINGE IVFLUSH ×2 (08:25→21:58)
[2025-09-12 08:28] LABS: NT Pro B Type Natriuretic Pept 2432.4 pg/mL (<300)
[2025-09-12 09:33] LABS: Chlamydia pneumoniae PCR Not Detected (Not Detect.); Coronavirus 229E PCR Not Detected (Not Detect.); Coronavirus HKU1 PCR Not Detected (Not Detect.); Coronavirus NL63 PCR Not Detected (Not Detect.); Coronavirus OC43 PCR Not Detected (Not Detect.); RSV PCR Not Detected (Not Detect.); Rhino/Enterovirus PCR Not Detected (Not Detect.)
[2025-09-12 09:58] LABS: Influenza A H1 PCR Not Detected (Not Detect.); Influenza A H1-2009 PCR Not Detected (Not Detect.); Influenza A H3 PCR Not Detected (Not Detect.); SARS-CoV-2 PCR Not Detected (Not Detect.)
[2025-09-12 11:25] LABS: Glucose, Whole Blood 152 mg/dL (60-115)
--- NOTE | 2025-09-12 12:46 | PC.NURSE ---
Addendum entered by Lilliam Bryant RN 09/12/25 12:57: Note pt was asymptomatic at these events stating he felt not great but not terrible and he didnt feel his heart racing at all. Original Note: (see Ashely Carter note - as this RN took over during rapid a fib episode)- With provider at beside, pt was on 10L oxymask, new fine crackles throughout. New order for 5mg IV metoprolol admined. Also instructed to give morning meds ( see MAR). stat CXR and labs ordered. Pt HR initially decreased to low 100s but steadily kept increasing through the morning = again sustaining HR 120-130s afib- MD notified 5mg IV metoprolol ordered and admin at 11:57 along with another 25mg PO metoprolol. oral temp 102.9. BP stable (see documentation for other vitals) HR remained 120s until ~12:40 then 80-90s. Cardio and provider aware. Cardio in room to see pt now
--- NOTE | 2025-09-12 14:54 | MHC.CM.PN ---
IMM 09/12/25, EMR REVIEWED, PT W/RECENT DC ON 09/04 REPORTS HE CALLED HIS PCP DR. ALVAREZ AND REPORTS HE TOLD HIM I FEEL LIKE CRAP PT REPORTS HIS PCP TOLD HIM TO RETURN TO ED. PT LIVES W/HIS AJ, IS FULLY INDEP W/ALL CARE AT BASELINE, NO DME/HOME SERVICES. PT'S GOAL FOR DC HOME ONCE READY. PT EDUCATED ON AND COMPLETES A H&P NAMING HIS AJ DARRIN [phone] HIS HCA AND DTR HERBIE CLIFFORD [phone], PT PROVIDED W/EDUCATIONAL HANDOUT AND ORIGINAL, COPY UPLOADED TO [employer] AND PLACED IN CHART.
--- NOTE | 2025-09-12 15:15 | PM.CNCAR ---
History of Present Illness History of Present Illness Date of Service: 09/12/25 Requesting physician: Rand Ch Chief complaint: AFib with RVR Narrative: 75 year gentleman who was admitted end of August with syncope due to orthostasis and had acute kidney injury with mild troponin elevation at that time. He was noticed to be in atrial fibrillation which was new onset. He was eventually started on anticoagulation and discharged home along with beta-blockers. Echocardiography at that time has shown mildly reduced ejection fraction of 40-45%. He has left bundle-branch block which is chronic. He is denying any significant symptoms currently. His chest x-ray interestingly he is showing bilateral central infiltrates consistent with CHF. His blood pressures were rather elevated but he received some IV metoprolol and since that blood pressures has been low. His echocardiography recently has shown [id number] aortic valve stenosis. [facility] Past Medical History Medical History (Updated 09/12/25 @ 15:20 by Zhang Jasmine MD) Thrombocytopenia New onset a-fib Paroxysmal A-fib Trace mitral valve regurgitation Essential hypertension Type 2 diabetes mellitus with unspecified complications Bone spur of ankle Arthritis Back pain Sleep apnea with use of continuous positive airway pressure (CPAP) Hyperlipidemia Hypertension Family History Family History Father No problems noted. Mother No problems noted. Surgical History Surgical History History of total left knee replacement H/O varicose vein ligation Hx of laparoscopic gastric banding History of colonoscopy Social History Social History Household Members: Spouse Housing: House Are you a primary physician assistant primary care to a significant other at home: No Do you presently have visiting nurse or other home services: No Alcohol intake: current Alcohol intake frequency: holidays/special occasions only Patient Tobacco Use Status: Former Tobacco user Tobacco use type: Cigarette Years Smoked: 5 +/- Smoked in Last 30 Days: No e-Cigarette/Vaping Use: Former Use Patient Given Instructions on How to Stop Smoking: No Second Hand Smoke Exposure: No Currently Displaying Signs/Symptoms of Drug Intoxication Withdrawal: No Have you been hit, kicked, punched, or otherwise hurt by someone within the past year? If so, by whom?: No Do you feel safe in your current relationship?: Yes Advance Directives: No Advance Directives Information Provided: Yes Do you have a plan to hurt others: No Plan Recently lost weight without trying: No How much weight loss: Not applicable Eating poorly because of decreased appetite: Yes Nutrition screen score: 1 Nutrition Risks: No Nutritional Risk Poor oral hygiene: No service: No Meds Allergies Allergy/AdvReac Type Severity Reaction Status Date / Time No Known Allergies (No Known Allergy Verified 09/11/25 13:15 Allergies*) Active Medications: Current Medications Acetaminophen (Acetaminophen 325 Mg Tablet) 650 mg PO Q6H PRN PRN Reason: Pain, Mild 1-3,fever,headache Last Admin: 09/12/25 11:57 Dose: 650 mg Apixaban (Apixaban 5 Mg Tablet) 5 mg PO BID [facility] Last Admin: 09/12/25 08:25 Dose: 5 mg Aspirin (Aspirin Enteric Coated 81 Mg Tablet.) 81 mg PO DAILY [facility] Last Admin: 09/12/25 08:25 Dose: 81 mg Atorvastatin Calcium (Atorvastatin Calcium 80 Mg Tablet) 80 mg PO BEDTIME [facility] Last Admin: 09/11/25 22:30 Dose: 80 mg Calcium Carbonate (Calcium Carbonate 750 Mg Tab.Chew) 750 mg PO Q4H PRN PRN Reason: Heartburn Dextrose (Dextrose 50 % 25 Gm/50 Ml Syringe) 25 gm IVPUSH Q15M PRN; Protocol PRN Reason: per Hypoglycemia Standing Ord. Fluticasone Propionate (Fluticasone Propionate Nasal 16 Gm [place]) 1 spray NOSTRIL-B DAILY [facility] Last Admin: 09/12/25 11:15 Dose: 1 spray Glucose (Glucose Gel 15 Gm Gel..Gram.) 15 gm PO Q15M PRN; Protocol PRN Reason: per Hypoglycemia Standing Ord. Acetaminophen (Ofirmev) 1,000 mg in 100 mls @ 400 mls/hr IV Q6H PRN PRN Reason: Fever Insulin Human Lispro (Insulin Lispro 100 Unit/Ml 3 Ml Vial) 0 unit SUBCUT QIDACHS [facility]; Protocol Last Admin: 09/12/25 11:51 Dose: 2 unit Magnesium Hydroxide (Milk Of Magnesia 30 Ml Oral.Susp) 30 ml PO DAILY PRN PRN Reason: Constipation Melatonin (Melatonin 3 Mg Tablet) 6 mg PO BEDTIME PRN PRN Reason: Insomnia Metoprolol Tartrate (Metoprolol Tartrate 25 Mg Tablet) 25 mg PO BID [facility]; Protocol Stop: 09/12/25 21:01 Last Admin: 09/12/25 11:59 Dose: 25 mg Metoprolol Tartrate (Metoprolol Tartrate 50 Mg Tablet) 50 mg PO BID [facility]; Protocol Multivitamins/Vitamin C (Multivitamin Tablet) 1 tab PO DAILY [facility] Last Admin: 09/12/25 08:25 Dose: 1 tab Ondansetron HCl (Ondansetron Hcl 4 Mg/2 Ml Vial) 4 mg IVPUSH Q8H PRN PRN Reason: Nausea and Vomiting Oxycodone HCl (Oxycodone Hcl Immed Release 5 Mg Tablet) 5 mg PO Q6H PRN PRN Reason: Pain, Severe (Pain Scale 7-10) Sodium Chloride (0.9 % Sodium Chloride Flush 3 Ml Syringe) [address] [facility] Last Admin: 09/12/25 08:25 Dose: 3 ml Spironolactone (Spironolactone 25 Mg Tablet) 25 mg PO DAILY [facility]; Protocol Last Admin: 09/12/25 07:22 Dose: 25 mg Tramadol HCl (Tramadol Hcl 50 Mg Tablet) 50 mg PO Q6H PRN PRN Reason: Pain, Moderate(Pain Scale 4-6) Home Medications ?Medication ?Instructions ?Recorded ?Confirmed ?Last Taken ?Type amlodipine 10 mg tablet 10 mg PO DAILY 06/17/21 09/11/25 09/11/25 History atorvastatin 80 mg tablet 80 mg PO BEDTIME 06/20/22 09/11/25 09/11/25 History valsartan 320 1 tab PO DAILY 07/04/23 09/11/25 09/11/25 History mg-hydrochlorothiazide 12.5 mg tablet metformin 500 mg tablet,extended 500 mg PO BID 05/07/24 09/11/25 09/11/25 History release 24 hr fluticasone propionate 50 1 spray intranasal DAILY 08/08/24 09/11/25 09/11/25 History mcg/actuation nasal spray,suspension aspirin 81 mg tablet 81 mg PO DAILY 09/02/25 09/11/25 09/11/25 History multivitamin 1 tab PO DAILY 09/11/25 09/11/25 09/11/25 History Physical Exam Vital Signs: Vital Signs: Last Vital Signs Temp 102.9 F H 09/12/25 11:52 Pulse 75 09/12/25 14:00 Resp 16 09/12/25 11:52 BP 96/57 L 09/12/25 12:31 Pulse Ox 94 09/12/25 11:52 O2 Del Method Nasal Cannula 09/12/25 11:52 O2 Flow Rate 2 09/12/25 11:52 BMI result Body Mass Index 24.5 GENERAL APPEARANCE: in no acute distress, pleasant. NECK: no carotid bruit. SKIN: no suspicious lesions, warm and dry. HEART: Systolic murmur aortic area, irregular rate and rhythm. LUNGS: Mild crackles both bases.. ABDOMEN: soft, nontender. EXTREMITIES: no edema. PERIPHERAL PULSES: equal. NEUROLOGIC: No gross deficits, AAO X 3 Objective Labs and Meds 09/12/25 06:38 09/12/25 06:38 Lab results: Laboratory Results - last 24 hr 09/11/25 09/11/25 09/11/25 13:24 15:07 17:54 WBC RBC Hgb Hct MCV MCH MCHC RDW Plt Count MPV Immature Gran % (Auto) Neut % (Auto) Lymph % (Auto) [place] % (Auto) Eos % (Auto) Baso % (Auto) Lymph # (Auto) [place] # (Auto) Eos # (Auto) Baso # (Auto) Abs Immat Gran (auto) Absolute Neuts (auto) Absolute Nucleated RBC Nucleated RBC % (auto) Sodium Potassium Chloride Carbon Dioxide Anion Gap BUN Creatinine Estim Creat Clear Calc Estimated GFR POC Glucose 190 H Random Glucose Lactic Acid 0.8 Calcium Total Bilirubin AST ALT Alkaline Phosphatase NT-Pro-B Natriuret Pep Total Protein Albumin Lipase 45 Urine Color Yellow Urine Appearance Clear Urine pH 6.5 Ur Specific [place] 1.020 Urine Protein 30 (1+) H Urine Glucose (UA) Negative Urine Ketones Trace Urine Blood Trace H Urine Nitrite Negative Ur Leukocyte Esterase Negative Urine RBC 6-10 H Urine WBC 0-5 Ur Squamous Epith Cells 0-2 Urine Bacteria None Seen Hyaline Casts 0-2 Respiratory Panel [place] Adenovirus (Rapid PCR) B.pert (TEM-PCR) B.parapertussis DNA PCR C. pneumoniae DNA (PCR) Coronavirus OC43 (PCR) Coronavirus HKU1 (PCR) Coronavirus 229E (PCR) Coronavirus NL63 (PCR) Human Metapneumovir PCR Influenza A (RT-PCR) Influenza A (H1) PCR Influ A (H1/09) PCR Influenza A (H3) PCR Influenza B (RT-PCR) M. pneumoniae (PCR) Parainfluenza 1 (PCR) Parainfluenza 2 (PCR) Parainfluenza 3 (PCR) Parainfluenza 4 (PCR) RSV (PCR) Entero/Rhino (PCR) SARS-CoV-2 RNA (RT-PCR) 09/12/25 09/12/25 09/12/25 01:00 01:10 06:38 WBC 8.0 RBC 3.99 L Hgb 11.6 L Hct 36.0 L MCV 90.2 MCH 29.1 MCHC 32.2 RDW 15.6 Plt Count 311 MPV 9.6 Immature Gran % (Auto) 0.9 H Neut % (Auto) 77.7 H Lymph % (Auto) 15.2 L [place] % (Auto) 5.9 Eos % (Auto) 0.0 Baso % (Auto) 0.3 Lymph # (Auto) 1.2 [place] # (Auto) 0.5 Eos # (Auto) 0.0 Baso # (Auto) 0.0 Abs Immat Gran (auto) 0.07 H Absolute Neuts (auto) 6.2 Absolute Nucleated RBC 0.000 Nucleated RBC % (auto) 0.0 Sodium 138 Potassium 4.3 Chloride 103 Carbon Dioxide 25 Anion Gap 14 BUN 17 H Creatinine 1.18 Estim Creat Clear Calc 63.6 Estimated GFR > 60 POC Glucose 99 Random Glucose 106 Lactic Acid Calcium 9.2 Total Bilirubin 1.1 H AST 38 H ALT 51 H Alkaline Phosphatase 71 NT-Pro-B Natriuret Pep 2432.4 H Total Protein 7.6 Albumin 4.9 Lipase Urine Color Urine Appearance Urine pH Ur Specific [place] Urine Protein Urine Glucose (UA) Urine Ketones Urine Blood Urine Nitrite Ur Leukocyte Esterase Urine RBC Urine WBC Ur Squamous Epith Cells Urine Bacteria Hyaline Casts Respiratory Panel [place] See Note Adenovirus (Rapid PCR) Not Detected B.pert (TEM-PCR) Not Detected B.parapertussis DNA PCR Not Detected C. pneumoniae DNA (PCR) Not Detected Coronavirus OC43 (PCR) Not Detected Coronavirus HKU1 (PCR) Not Detected Coronavirus 229E (PCR) Not Detected Coronavirus NL63 (PCR) Not Detected Human Metapneumovir PCR Not Detected Influenza A (RT-PCR) Not Detected Influenza A (H1) PCR Not Detected Influ A (H1/09) PCR Not Detected Influenza A (H3) PCR Not Detected Influenza B (RT-PCR) Not Detected M. pneumoniae (PCR) Not Detected Parainfluenza 1 (PCR) Not Detected Parainfluenza 2 (PCR) Not Detected Parainfluenza 3 (PCR) Not Detected Parainfluenza 4 (PCR) Not Detected RSV (PCR) Not Detected Entero/Rhino (PCR) Not Detected SARS-CoV-2 RNA (RT-PCR) Not Detected 09/12/25 09/12/25 06:52 11:19 WBC RBC Hgb Hct MCV MCH MCHC RDW Plt Count MPV Immature Gran % (Auto) Neut % (Auto) Lymph % (Auto) [place] % (Auto) Eos % (Auto) Baso % (Auto) Lymph # (Auto) [place] # (Auto) Eos # (Auto) Baso # (Auto) Abs Immat Gran (auto) Absolute Neuts (auto) Absolute Nucleated RBC Nucleated RBC % (auto) Sodium Potassium Chloride Carbon Dioxide Anion Gap BUN Creatinine Estim Creat Clear Calc Estimated GFR POC Glucose 96 152 H Random Glucose Lactic Acid Calcium Total Bilirubin AST ALT Alkaline Phosphatase NT-Pro-B Natriuret Pep Total Protein Albumin Lipase Urine Color Urine Appearance Urine pH Ur Specific [place] Urine Protein Urine Glucose (UA) Urine Ketones Urine Blood Urine Nitrite Ur Leukocyte Esterase Urine RBC Urine WBC Ur Squamous Epith Cells Urine Bacteria Hyaline Casts Respiratory Panel [place] Adenovirus (Rapid PCR) B.pert (TEM-PCR) B.parapertussis DNA PCR C. pneumoniae DNA (PCR) Coronavirus OC43 (PCR) Coronavirus HKU1 (PCR) Coronavirus 229E (PCR) Coronavirus NL63 (PCR) Human Metapneumovir PCR Influenza A (RT-PCR) Influenza A (H1) PCR Influ A (H1/09) PCR Influenza A (H3) PCR Influenza B (RT-PCR) M. pneumoniae (PCR) Parainfluenza 1 (PCR) Parainfluenza 2 (PCR) Parainfluenza 3 (PCR) Parainfluenza 4 (PCR) RSV (PCR) Entero/Rhino (PCR) SARS-CoV-2 RNA (RT-PCR) Imaging Radiologist's impression: Impressions Chest X-Ray 09/12/25 08:03 IMPRESSION: Pulmonary edema. Electronically signed by: Pee Gilliland MD 09/12/2025 08:16 AM EST Assessment and Plan (1) Paroxysmal A-fib: Status: Acute (2) Acute CHF: Status: Acute Plan 75-year-old gentleman with history of [id number] aortic valve stenosis and previous right coronary artery PCI who recently had orthostasis and new onset atrial fibrillation. He was discharged home with beta-walter and apixaban. He was also taking baby aspirin given his history of coronary disease and previous stent in 2023. He is now returning with fevers and chills. He had a runny nose also. 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 His viral panel so far is negative. He has been spiking fevers and with fever he has tachycardia and AFib with RVR. He has persistent atrial fibrillation at this point. His LV function also was reduced on echocardiography and he had left bundle-branch block we can also lead to cardiomyopathy. Overall his heart rate is well controlled. Please avoid IV beta-blockers because he gets hypotensive after getting IV beta-walter likely due to underlying cardiomyopathy. Chest x-ray is showing heart failure and his BNP is significantly elevated. Start 20 mg IV Lasix. We will follow along with you. Thank you for allowing me to participate in the care of your patient. Please feel free to contact me if you have any questions. Procedures Date of Service Date of Service: 09/12/25
[2025-09-12 16:33] LABS: Glucose, Whole Blood 109 mg/dL (60-115)
[2025-09-12] MEDS: Furosemide 20 MG/2 ML VIAL IVPUSH (17:47)
[2025-09-12 20:32] LABS: Glucose, Whole Blood 199 mg/dL (60-115)
[2025-09-13] VITALS (9 sets, daily range): BP systolic 96–129; BP diastolic 52–68; PULSE 82–102; RESP 18–20; TEMP 36.7–40.1; O2SAT 95–100
[2025-09-13 07:23] LABS: MANUAL DIFF FLAG NO
[2025-09-13 07:29] LABS: Hematocrit 30.7 % (42.0-52.0); Hemoglobin 10.2 g/dl (14.0-18.0); Imm Gran Abs Auto 0.06 X10*3/uL (0.00-0.03); Imm Gran Pct Auto 0.6 % (0.0-0.4); Lymphocytes Absolute Auto 0.9 X10*3/uL (1.2-4.9); Mean Corpuscular HGB Conc 33.2 g/dl (31.0-36.0); Mean Corpuscular Hemoglobin 29.2 pg (27.0-33.0); Mean Corpuscular Volume 88.0 fL (80.0-98.0); NRBC Abs Auto 0.000 X10*3/uL (0.0-0.012); NRBC Pct Auto 0.0 /100WBC (0.0-0.2); Platelet Count 249 X10*3/uL (160-400); Red Blood Count 3.49 X10*6/uL (4.60-5.80); White Blood Count 9.4 X10*3/uL (4.8-10.8)
[2025-09-13 07:36] LABS: Glucose, Whole Blood 123 mg/dL (60-115)
[2025-09-13 08:15] LABS: Alanine Aminotransferase 32 U/L (0-40); Albumin Level 3.8 g/dL (3.5-5.0); Alkaline Phosphatase 60 U/L (39-117); Anion Gap 16 (12-20); Aspartate Amino Transferase 35 U/L (5-37); Blood Urea Nitrogen 28 mg/dL (9-16); Carbon Dioxide 21 mmol/L (22-29); Chloride 104 mmol/L (96-108); Creatinine Clr Calc Pharmacy 49.4; Estimated Glomerular Filt Rate 45; Potassium 3.6 mmol/L (3.3-5.1); Sodium 137 mmol/L (135-145); Total Protein 6.3 g/dL (6.5-8.0)
[2025-09-13 08:23] LABS: Calcium 8.4 mg/dL (8.4-10.2)
[2025-09-13] MEDS: 0.9 % Sodium Chloride Flush 3 ML SYRINGE IVFLUSH ×3 (09:19→20:19)
[2025-09-13] MEDS: Aspirin Enteric Coated 81 MG TABLET.DR PO (09:19)
[2025-09-13] MEDS: Furosemide 20 MG/2 ML VIAL IVPUSH (09:19)
--- NOTE | 2025-09-13 10:53 | P.PNIM_ITS ---
Subjective Subjective Date of Service: 09/13/25 Interval History: Continued to spike fevers overnight Tachycardic to 180s with movement/exertion BNP and creatinine worsening Reports feels slightly better than yesterday Review of Systems Review of Systems: Yes all other systems are reviewed and are negative Physical Exam 2 Exam: Exam: General: AOx3, no acute distress Resp: bibasilar crackles CVS: Irregularly irregular rhythm, +murmur GI: +BS, NT, no distention Skin: Warm, dry Neuro: Cranial nerves II-XII grossly intact bilaterally. Motor grossly intact bilaterally Extremities: No edema Psych: Appropriate affect Vital Signs: Vital Signs: Last Vital Signs Temp 98.5 F 09/13/25 09:25 Pulse 102 H 09/13/25 07:47 Resp 20 09/13/25 07:47 BP 103/58 L 09/13/25 07:47 Pulse Ox 97 09/13/25 07:47 O2 Del Method Nasal Cannula 09/13/25 07:47 O2 Flow Rate 2 09/13/25 07:47 BMI result Body Mass Index 24.5 Objective Data Active Medications Acetaminophen (Acetaminophen 325 Mg Tablet) 650 mg PO Q6H PRN PRN Reason: Pain, Mild 1-3,fever,headache Last Admin: 09/12/25 11:57 Dose: 650 mg Documented By: ORALIA Apixaban (Apixaban 5 Mg Tablet) 5 mg PO BID [facility] Last Admin: 09/13/25 09:19 Dose: 5 mg Documented By: PHIL Aspirin (Aspirin Enteric Coated 81 Mg Tablet.) 81 mg PO DAILY [facility] Last Admin: 09/13/25 09:19 Dose: 81 mg Documented By: PHIL Atorvastatin Calcium (Atorvastatin Calcium 80 Mg Tablet) 80 mg PO BEDTIME [facility] Last Admin: 09/12/25 21:57 Dose: 80 mg Documented By: SUBHASH Calcium Carbonate (Calcium Carbonate 750 Mg Tab.Chew) 750 mg PO Q4H PRN PRN Reason: Heartburn Dextrose (Dextrose 50 % 25 Gm/50 Ml Syringe) 25 gm IVPUSH Q15M PRN; Protocol PRN Reason: per Hypoglycemia Standing Ord. Fluticasone Propionate (Fluticasone Propionate Nasal 16 Gm [place]) 1 spray NOSTRIL-B DAILY [facility] Last Admin: 09/13/25 09:36 Dose: 1 spray Documented By: PHIL Furosemide (Furosemide 20 Mg/2 Ml Vial) 20 mg IVPUSH DAILY [facility]; Protocol Last Admin: 09/13/25 09:19 Dose: 20 mg Documented By: PHIL Glucose (Glucose Gel 15 Gm Gel..Gram.) 15 gm PO Q15M PRN; Protocol PRN Reason: per Hypoglycemia Standing Ord. Acetaminophen (Ofirmev) 1,000 mg in 100 mls @ 400 mls/hr IV Q6H PRN PRN Reason: Fever Last Infusion: 09/13/25 07:47 Dose: Infused Documented By: SUBHASH Ceftriaxone Sodium 1 gm/ (Sodium Chloride) 50 mls @ 100 mls/hr IV Q24H [facility] Last Infusion: 09/12/25 18:22 Dose: Infused Documented By: ORALIA Vancomycin HCl 750 mg/ Sodium (Chloride) 265 mls @ 265 mls/hr IV Q12H [facility] Last Admin: 09/13/25 09:17 Dose: 265 mls/hr Documented By: PHIL Insulin Human Lispro (Insulin Lispro 100 Unit/Ml 3 Ml Vial) 0 unit SUBCUT QIDACHS [facility]; Protocol Last Admin: 09/13/25 09:02 Dose: Not Given Documented By: PHIL Non-Admin Reason: No Insulin Coverage Magnesium Hydroxide (Milk Of Magnesia 30 Ml Oral.Susp) 30 ml PO DAILY PRN PRN Reason: Constipation Melatonin (Melatonin 3 Mg Tablet) 6 mg PO BEDTIME PRN PRN Reason: Insomnia Metoprolol Tartrate (Metoprolol Tartrate 50 Mg Tablet) 50 mg PO BID [facility]; Protocol Last Admin: 09/13/25 09:19 Dose: 50 mg Documented By: PHIL Multivitamins/Vitamin C (Multivitamin Tablet) 1 tab PO DAILY [facility] Last Admin: 09/13/25 09:19 Dose: 1 tab Documented By: PHIL Ondansetron HCl (Ondansetron Hcl 4 Mg/2 Ml Vial) 4 mg IVPUSH Q8H PRN PRN Reason: Nausea and Vomiting Oxycodone HCl (Oxycodone Hcl Immed Release 5 Mg Tablet) 5 mg PO Q6H PRN PRN Reason: Pain, Severe (Pain Scale 7-10) Pharmacy Consult (Consult Rx Vancomycin Dosing) 1 each MISCELLANE DAILY PRN PRN Reason: Consult order Sodium Chloride (0.9 % Sodium Chloride Flush 3 Ml Syringe) 3 ml IVFLUSH QSHIFT [facility] Last Admin: 09/13/25 09:19 Dose: 3 ml Documented By: PHIL Spironolactone (Spironolactone 25 Mg Tablet) 25 mg PO DAILY [facility]; Protocol Last Admin: 09/13/25 09:18 Dose: 25 mg Documented By: PHIL Tramadol HCl (Tramadol Hcl 50 Mg Tablet) 50 mg PO Q6H PRN PRN Reason: Pain, Moderate(Pain Scale 4-6) Labs 09/13/25 07:15 09/13/25 07:15 Labs: Laboratory Results - last 24 hr 09/12/25 09/12/25 09/12/25 11:19 16:28 20:24 MCV MCH MCHC RDW Plt Count MPV Immature Gran % (Auto) Neut % (Auto) Lymph % (Auto) [place] % (Auto) Eos % (Auto) Baso % (Auto) Lymph # (Auto) [place] # (Auto) Eos # (Auto) Baso # (Auto) Abs Immat Gran (auto) Absolute Neuts (auto) Absolute Nucleated RBC Nucleated RBC % (auto) Anion Gap Estim Creat Clear Calc Estimated GFR POC Glucose 152 H 109 199 H Random Glucose Calcium Total Bilirubin AST ALT Alkaline Phosphatase NT-Pro-B Natriuret Pep Total Protein Albumin 09/13/25 09/13/25 07:15 07:22 MCV 88.0 MCH 29.2 MCHC 33.2 RDW 15.8 Plt Count 249 MPV 10.1 Immature Gran % (Auto) 0.6 H Neut % (Auto) 84.6 H Lymph % (Auto) 9.1 L [place] % (Auto) 5.5 Eos % (Auto) 0.0 Baso % (Auto) 0.2 Lymph # (Auto) 0.9 L [place] # (Auto) 0.5 Eos # (Auto) 0.0 Baso # (Auto) 0.0 Abs Immat Gran (auto) 0.06 H Absolute Neuts (auto) 8.0 Absolute Nucleated RBC 0.000 Nucleated RBC % (auto) 0.0 Anion Gap 16 Estim Creat Clear Calc 49.4 Estimated GFR 45 POC Glucose 123 H Random Glucose 120 H Calcium 8.4 D Total Bilirubin 1.0 AST 35 ALT 32 Alkaline Phosphatase 60 NT-Pro-B Natriuret Pep 3933.7 H Total Protein 6.3 L Albumin 3.8 Microbiology Microbiology Results: Microbiology 09/11/25 15:07 Blood Culture - Preliminary Blood - Venous No growth after 24 hours. 09/11/25 15:07 Blood Culture - Preliminary Blood - Venous No growth after 24 hours. Assessment and Plan (1) SIRS (systemic inflammatory response syndrome): Status: Acute (2) Atrial fibrillation with RVR: Status: Acute Plan Patient is a 75-year-old male with a past medical history significant for new onset AFib on Eliquis, T2 dm on metformin, HTN and CAD, who presented to the ED due to dizziness weakness and fever. SIRS+, fever, tachycardia, source unknown, ?Lyme - hypotension treated with IVF and albumin, possibly secondary to polypharmacy - respiratory panel negative, A/P CT negative - blood cultures negative after 24h - vancomycin and ceftriaxone 2g prophylactically, day 3 - check tick panel and Lyme -- pt regularly walks dog in [place], last known tick bite a couple of weeks ago - infectious disease consult - monitor CBC and CMP AFib with RVR and ?mild CHF - HR has intermittently as high as 180s while activity - continues to be tachycardic with movement - CXR showing pulmonary edema, BNP increased today to 3933.7, though cardiology does not think is due to CHF - tachycardia often linked to fever and thus acute illness - pt given Lasix 20mg IV x2, will hold on addional doses - continue home metoprolol; hold on IV antihypertensives - monitor on telemetry Acute hypoxic respiratory failure - pt noted to be desatting to 72% on RA - possibly secondary to AFib with RVR and/or CHF - titrate supplemental O2 >92, wean as tolerated WILIAN - creatinine 1.18-->1.52 - possibly cardio-renal - follow creatinine hypotension, responsive to albumin and IVF - the pt was hypotensive as low as 72/45 in the ED - BP labiel, has been as high as 176/98; currently soft - conitnue to hold amlodpine and HCTZ-valsartan for now - continue metoprolol and spironolactone - monitor BP closely anemia, chronic and stable - monitor CBC paroxysmal a fib - metorpolol and eliquis T2DM - SSI - diabetic diet - hold metformin CAD - ASA and statin esophagela wall thickening on CT - pt asx - f/u outpt with GI full code VTE prophy: eliquis Pt SIRS+ with hypotension, likely due to polypharmacy, and no complicated by acute hypoxic respiratory failure and AFib with RVR. Pt requires continued hospitalization for monitoring, treatment, and additional workup and specialist consultation with Cardiology. Quality Stroke Does the patient have a stroke diagnosis?: No VTE Prior VTE?: No VTE Risk Level:: Medical - moderate - high VTE Device Contraindication: Treatment Not Indicated VTE Drug Contraindication: N/A - Med Ordered
[2025-09-13 11:09] LABS: Glucose, Whole Blood 162 mg/dL (60-115)
--- NOTE | 2025-09-13 14:00 | PM.PNCARD ---
Subjective Subjective Date of Service: 09/13/25 Interval history: Seen examined at bedside. Denying any shortness of breath. Continues to have fevers. Physical Exam Vital Signs: Last Vital Signs Temp 98.1 F 09/13/25 11:44 Pulse 89 09/13/25 11:44 Resp 18 09/13/25 11:44 BP 125/64 09/13/25 11:44 Pulse Ox 100 09/13/25 11:44 O2 Del Method Nasal Cannula 09/13/25 11:44 O2 Flow Rate 1 09/13/25 11:44 BMI result Body Mass Index 24.5 GENERAL APPEARANCE: in no acute distress, pleasant. NECK: no carotid bruit. No JVD. SKIN: no suspicious lesions, warm and dry. HEART: Systolic murmur aortic area, irregular rate and rhythm. LUNGS: Clear to auscultation. ABDOMEN: soft, nontender. EXTREMITIES: no edema. PERIPHERAL PULSES: equal. NEUROLOGIC: No gross deficits, AAO X 3 Objective Labs and Meds 09/13/25 07:15 09/13/25 07:15 Lab results: Laboratory Results - last 24 hr 09/12/25 09/12/25 09/13/25 16:28 20:24 07:15 WBC 9.4 RBC 3.49 L Hgb 10.2 L Hct 30.7 L MCV 88.0 MCH 29.2 MCHC 33.2 RDW 15.8 Plt Count 249 MPV 10.1 Immature Gran % (Auto) 0.6 H Neut % (Auto) 84.6 H Lymph % (Auto) 9.1 L [place] % (Auto) 5.5 Eos % (Auto) 0.0 Baso % (Auto) 0.2 Lymph # (Auto) 0.9 L [place] # (Auto) 0.5 Eos # (Auto) 0.0 Baso # (Auto) 0.0 Abs Immat Gran (auto) 0.06 H Absolute Neuts (auto) 8.0 Absolute Nucleated RBC 0.000 Nucleated RBC % (auto) 0.0 Sodium 137 Potassium 3.6 Chloride 104 Carbon Dioxide 21 L Anion Gap 16 BUN 28 H Creatinine 1.52 H Estim Creat Clear Calc 49.4 Estimated GFR 45 POC Glucose 109 199 H Random Glucose 120 H Calcium 8.4 D Total Bilirubin 1.0 AST 35 ALT 32 Alkaline Phosphatase 60 NT-Pro-B Natriuret Pep 3933.7 H Total Protein 6.3 L Albumin 3.8 09/13/25 09/13/25 07:22 10:55 WBC RBC Hgb Hct MCV MCH MCHC RDW Plt Count MPV Immature Gran % (Auto) Neut % (Auto) Lymph % (Auto) [place] % (Auto) Eos % (Auto) Baso % (Auto) Lymph # (Auto) [place] # (Auto) Eos # (Auto) Baso # (Auto) Abs Immat Gran (auto) Absolute Neuts (auto) Absolute Nucleated RBC Nucleated RBC % (auto) Sodium Potassium Chloride Carbon Dioxide Anion Gap BUN Creatinine Estim Creat Clear Calc Estimated GFR POC Glucose 123 H 162 H Random Glucose Calcium Total Bilirubin AST ALT Alkaline Phosphatase NT-Pro-B Natriuret Pep Total Protein Albumin Progress Note: A&P Assessment and plan (1) Atrial fibrillation with RVR: Status: Acute (2) SIRS (systemic inflammatory response syndrome): Status: Acute Plan [age] year gentleman presenting with AFib with RVR. He also has high fevers with etiology unclear currently. He was here in August with orthostasis and at that time he was noticed to have thrombocytopenia. Apparently his pulled a tick from his back before that. He was diagnosed with new onset atrial fibrillation and mild cardiomyopathy with EF 40-45%. He was started on beta-blockers and apixaban and sent back home. He is now presenting with high fevers up to 102.9. His chest x-ray also showed some central infiltrates concerning for pulmonary edema although he is not acting like congestive heart failure. He was sleeping flat at night without any shortness of breath and continues to have no shortness of breath. He has been given some diuretics today and I think I would hold further diuretics because he has no JVD on examination and lungs are clear to auscultation 2. He has mildly abnormal liver panel. With tick bite and thrombocytopenia episode (which interestingly was self-limiting)-I think we need to rule out tick-borne illness. A panel has been sent. I will also check for Legionella on him because sometime interstitial changes can be due to atypical pneumonia like Legionella and mycoplasma. Legionella also affects the liver enzymes. When he gets fevers he gets tachycardia and AFib with RVR. Whenever he gets AFib with RVR please check his temperature 1st before pushing any IV medications. Thank you for allowing me to participate in the care of your patient. Please feel free to contact me if you have any questions. Time Spent With Patient Time: Total time managing care of this patient today ____ minutes. Progress Note: Quality Stroke Does the patient have a stroke diagnosis?: No Procedures Date of Service Date of Service: 09/13/25
[2025-09-13 16:25] LABS: Glucose, Whole Blood 151 mg/dL (60-115)
--- NOTE | 2025-09-13 18:48 | PM.EVENT ---
Event Note Date of Service: 09/13/25 Event Note: Pt continues to spike fevers as high as 104.1. Pt seen and evaluated where he is resting comfortably in bed. Pt overall denies any significant acute medical complaints at this time. Reports a ?very mild? headache. No neck or back pain. Denies nausea, vomiting, abdominal pain. No diarrhea. Denies shortness or breath or difficulty breathing. No cough. Denies chest pain or palpitations. has not had any recent travel, though notes he went to [place] in May. States on he experienced some difficulty focusing, but no significant confusion or altered mental status. Will receive IV Tylenol and be placed in a cooling blanket. Will broaden IV antibiotic coverage by dcing ceftriaxone and vanco, and starting Meropen 500 mg IV q6 and doxycycline 100 mg b.i.d.. Will check procalcitonin, MRSA swab, HIV, Legionella & strep pneumo; will also get bilateral ultrasound to evaluate for DVTs. Will check urine creatinine, urine sodium, and do a malaria and Babesia smear. Will wait on Infectious Disease consultation and consider lumbar puncture if fevers persist. Time Spent With Patient Time: Total time managing care of this patient today ____ minutes.
[2025-09-13 19:54] LABS: Procalcitonin 0.67 ng/mL
[2025-09-13 20:36] LABS: Glucose, Whole Blood 130 mg/dL (60-115)
[2025-09-13 20:44] LABS: Alanine Aminotransferase 34 U/L (0-40); Albumin Level 3.6 g/dL (3.5-5.0); Alkaline Phosphatase 60 U/L (39-117); Anion Gap 13 (12-20); Aspartate Amino Transferase 41 U/L (5-37); Blood Urea Nitrogen 36 mg/dL (9-16); Calcium 7.9 mg/dL (8.4-10.2); Carbon Dioxide 23 mmol/L (22-29); Chloride 103 mmol/L (96-108); Creatinine Clr Calc Pharmacy 43.6; Estimated Glomerular Filt Rate 39; Magnesium 1.6 mg/dL (1.6-2.6); Potassium 3.6 mmol/L (3.3-5.1); Sodium 135 mmol/L (135-145); Total Protein 6.1 g/dL (6.5-8.0)
[2025-09-14] VITALS (8 sets, daily range): BP systolic 91–130; BP diastolic 52–77; PULSE 66–134; RESP 16–20; TEMP 36–38.3; O2SAT 94–99
[2025-09-14 01:06] LABS: Appearance Urine Cloudy; Glucose Urine UA Negative (Negative); PH 5.0 (5.0-9.0); Specific Gravity - Urine 1.025 (1.005-1.025); UMIC TRIGGER UACC YES
[2025-09-14 04:35] LABS: HIV Num 1 2.47 S/CO (0.00-0.99)
[2025-09-14 06:36] LABS: HIV Num 2 0.07 S/CO; HIV Num 3 0.09 S/CO
[2025-09-14 08:10] LABS: Glucose, Whole Blood 135 mg/dL (60-115)
[2025-09-14 09:05] LABS: MANUAL DIFF FLAG NO
[2025-09-14 09:20] LABS: Hematocrit 32.8 % (42.0-52.0); Hemoglobin 10.5 g/dl (14.0-18.0); Imm Gran Abs Auto 0.05 X10*3/uL (0.00-0.03); Imm Gran Pct Auto 0.5 % (0.0-0.4); Lymphocytes Absolute Auto 1.6 X10*3/uL (1.2-4.9); Mean Corpuscular HGB Conc 32.0 g/dl (31.0-36.0); Mean Corpuscular Hemoglobin 28.4 pg (27.0-33.0); Mean Corpuscular Volume 88.6 fL (80.0-98.0); NRBC Abs Auto 0.000 X10*3/uL (0.0-0.012); NRBC Pct Auto 0.0 /100WBC (0.0-0.2); Platelet Count 204 X10*3/uL (160-400); Red Blood Count 3.70 X10*6/uL (4.60-5.80); White Blood Count 9.7 X10*3/uL (4.8-10.8)
[2025-09-14 09:41] LABS: Alanine Aminotransferase 34 U/L (0-40); Albumin Level 3.7 g/dL (3.5-5.0); Alkaline Phosphatase 69 U/L (39-117); Anion Gap 14 (12-20); Aspartate Amino Transferase 42 U/L (5-37); Blood Urea Nitrogen 32 mg/dL (9-16); Calcium 8.5 mg/dL (8.4-10.2); Carbon Dioxide 25 mmol/L (22-29); Chloride 104 mmol/L (96-108); Creatinine Clr Calc Pharmacy 60.5; Estimated Glomerular Filt Rate 57; Potassium 3.9 mmol/L (3.3-5.1); Sodium 139 mmol/L (135-145); Total Protein 6.4 g/dL (6.5-8.0)
[2025-09-14] MEDS: Aspirin Enteric Coated 81 MG TABLET.DR PO (09:43)
[2025-09-14] MEDS: 0.9 % Sodium Chloride Flush 3 ML SYRINGE IVFLUSH ×3 (09:44→23:46)
[2025-09-14 11:08] LABS: Glucose, Whole Blood 155 mg/dL (60-115)
--- NOTE | 2025-09-14 11:39 | P.PNIM_ITS ---
Subjective Subjective Date of Service: 09/14/25 Interval History: Pt without recurrent fevers since switching antibiotics last night Creatinine has improved and now normalized No recurrent hypoxia; no longer on supplemental O2 Pt overall feels comfortable and without any significant medical complaints Negative for HIV Tick panel and additional workup still pending Review of Systems Review of Systems: Yes all other systems are reviewed and are negative Physical Exam 2 Exam: Exam: General: AOx3, no acute distress Resp: CTA bilaterally CVS: Irregularly irregular rhythm, +murmur GI: +BS, NT, no distention Skin: Warm, dry Neuro: Cranial nerves II-XII grossly intact bilaterally. Motor grossly intact bilaterally Extremities: No edema Psych: Appropriate affect Vital Signs: Vital Signs: Last Vital Signs Temp 97.6 F 09/14/25 08:00 Pulse 91 09/14/25 08:00 Resp 18 09/14/25 08:00 BP 115/66 09/14/25 08:00 Pulse Ox 99 09/14/25 08:00 O2 Del Method Nasal Cannula 09/14/25 08:00 O2 Flow Rate 1 09/14/25 08:00 BMI result Body Mass Index 24.5 Objective Data Active Medications Acetaminophen (Acetaminophen 325 Mg Tablet) 650 mg PO Q6H PRN PRN Reason: Pain, Mild 1-3,fever,headache Last Admin: 09/12/25 11:57 Dose: 650 mg Documented By: ORALIA Apixaban (Apixaban 5 Mg Tablet) 5 mg PO BID [facility] Last Admin: 09/14/25 09:44 Dose: 5 mg Documented By: PHIL Aspirin (Aspirin Enteric Coated 81 Mg Tablet.) 81 mg PO DAILY [facility] Last Admin: 09/14/25 09:43 Dose: 81 mg Documented By: PHIL Atorvastatin Calcium (Atorvastatin Calcium 80 Mg Tablet) 80 mg PO BEDTIME [facility] Last Admin: 09/13/25 20:18 Dose: 80 mg Documented By: SUBHASH Calcium Carbonate (Calcium Carbonate 750 Mg Tab.Chew) 750 mg PO Q4H PRN PRN Reason: Heartburn Dextrose (Dextrose 50 % 25 Gm/50 Ml Syringe) 25 gm IVPUSH Q15M PRN; Protocol PRN Reason: per Hypoglycemia Standing Ord. Fluticasone Propionate (Fluticasone Propionate Nasal 16 Gm [place]) 1 spray NOSTRIL-B DAILY [facility] Last Admin: 09/14/25 09:52 Dose: 1 spray Documented By: PHIL Glucose (Glucose Gel 15 Gm Gel..Gram.) 15 gm PO Q15M PRN; Protocol PRN Reason: per Hypoglycemia Standing Ord. Acetaminophen (Ofirmev) 1,000 mg in 100 mls @ 400 mls/hr IV Q6H PRN PRN Reason: Fever Last Infusion: 09/14/25 00:10 Dose: Infused Documented By: SUBHASH Doxycycline Hyclate 100 mg/ (Sodium Chloride) 250 mls @ 166.67 mls/hr IV Q12H [facility] Last Infusion: 09/14/25 11:20 Dose: Infused Documented By: PHIL Insulin Human Lispro (Insulin Lispro 100 Unit/Ml 3 Ml Vial) 0 unit SUBCUT QIDACHS [facility]; Protocol Last Admin: 09/14/25 09:34 Dose: Not Given Documented By: PHIL Non-Admin Reason: No Insulin Coverage Magnesium Hydroxide (Milk Of Magnesia 30 Ml Oral.Susp) 30 ml PO DAILY PRN PRN Reason: Constipation Melatonin (Melatonin 3 Mg Tablet) 6 mg PO BEDTIME PRN PRN Reason: Insomnia Meropenem (Meropenem 1 Gm Vial) 1 gm IVPUSH Q12H [facility] Last Admin: 09/14/25 09:43 Dose: 1 gm Documented By: PHIL Metoprolol Tartrate (Metoprolol Tartrate 50 Mg Tablet) 50 mg PO BID [facility]; Protocol Last Admin: 09/14/25 09:44 Dose: 50 mg Documented By: PHIL Multivitamins/Vitamin C (Multivitamin Tablet) 1 tab PO DAILY [facility] Last Admin: 09/14/25 09:44 Dose: 1 tab Documented By: PHIL Ondansetron HCl (Ondansetron Hcl 4 Mg/2 Ml Vial) 4 mg IVPUSH Q8H PRN PRN Reason: Nausea and Vomiting Oxycodone HCl (Oxycodone Hcl Immed Release 5 Mg Tablet) 5 mg PO Q6H PRN PRN Reason: Pain, Severe (Pain Scale 7-10) Sodium Chloride (0.9 % Sodium Chloride Flush 3 Ml Syringe) 3 ml IVFLUSH QSHIFT [facility] Last Admin: 09/14/25 09:44 Dose: 3 ml Documented By: PHIL Spironolactone (Spironolactone 25 Mg Tablet) 25 mg PO DAILY [facility]; Protocol Last Admin: 09/14/25 09:43 Dose: 25 mg Documented By: PHIL Tramadol HCl (Tramadol Hcl 50 Mg Tablet) 50 mg PO Q6H PRN PRN Reason: Pain, Moderate(Pain Scale 4-6) Labs 09/14/25 08:40 09/14/25 08:40 Labs: Laboratory Results - last 24 hr 09/13/25 09/13/25 09/13/25 16:16 18:14 19:04 MCV MCH MCHC RDW Plt Count MPV Immature Gran % (Auto) Neut % (Auto) Lymph % (Auto) [place] % (Auto) Eos % (Auto) Baso % (Auto) Lymph # (Auto) [place] # (Auto) Eos # (Auto) Baso # (Auto) Abs Immat Gran (auto) Absolute Neuts (auto) Absolute Nucleated RBC Nucleated RBC % (auto) Anion Gap 13 Estim Creat Clear Calc 43.6 Estimated GFR 39 POC Glucose 151 H Random Glucose 157 H Calcium 7.9 L Magnesium 1.6 Total Bilirubin 0.8 AST 41 H ALT 34 Alkaline Phosphatase 60 NT-Pro-B Natriuret Pep Total Protein 6.1 L Albumin 3.6 Procalcitonin 0.67 Urine Color Urine Appearance Urine pH Ur Specific [place] Urine Protein Urine Glucose (UA) Urine Ketones Urine Blood Urine Nitrite Ur Leukocyte Esterase Urine RBC Urine WBC Ur Squamous Epith Cells Urine Bacteria Hyaline Casts Ur Random Sodium Urine Creatinine Random Vancomycin 10.6 L HIV 1&2 Ab/P24 Ag 4thGn Nonreactive 09/13/25 09/13/25 09/14/25 20:22 22:58 07:47 MCV MCH MCHC RDW Plt Count MPV Immature Gran % (Auto) Neut % (Auto) Lymph % (Auto) [place] % (Auto) Eos % (Auto) Baso % (Auto) Lymph # (Auto) [place] # (Auto) Eos # (Auto) Baso # (Auto) Abs Immat Gran (auto) Absolute Neuts (auto) Absolute Nucleated RBC Nucleated RBC % (auto) Anion Gap Estim Creat Clear Calc Estimated GFR POC Glucose 130 H 135 H Random Glucose Calcium Magnesium Total Bilirubin AST ALT Alkaline Phosphatase NT-Pro-B Natriuret Pep Total Protein Albumin Procalcitonin Urine Color Dark Yellow Urine Appearance Cloudy Urine pH 5.0 Ur Specific [place] 1.025 Urine Protein 100 (2+) H Urine Glucose (UA) Negative Urine Ketones Trace Urine Blood Small (1+) H Urine Nitrite Negative Ur Leukocyte Esterase Negative Urine RBC 11-20 H Urine WBC 0-5 Ur Squamous Epith Cells 3-5 Urine Bacteria None Seen Hyaline Casts 11-20 Ur Random Sodium 48.0 Urine Creatinine 156.62 Random Vancomycin HIV 1&2 Ab/P24 Ag 4thGn 09/14/25 09/14/25 08:40 10:53 MCV 88.6 MCH 28.4 MCHC 32.0 RDW 15.8 Plt Count 204 MPV 10.9 Immature Gran % (Auto) 0.5 H Neut % (Auto) 77.5 H Lymph % (Auto) 16.9 L [place] % (Auto) 4.8 Eos % (Auto) 0.0 Baso % (Auto) 0.3 Lymph # (Auto) 1.6 [place] # (Auto) 0.5 Eos # (Auto) 0.0 Baso # (Auto) 0.0 Abs Immat Gran (auto) 0.05 H Absolute Neuts (auto) 7.5 Absolute Nucleated RBC 0.000 Nucleated RBC % (auto) 0.0 Anion Gap 14 Estim Creat Clear Calc 60.5 Estimated GFR 57 POC Glucose 155 H Random Glucose 178 H Calcium 8.5 D Magnesium Total Bilirubin 0.9 AST 42 H ALT 34 Alkaline Phosphatase 69 NT-Pro-B Natriuret Pep 4135.2 H Total Protein 6.4 L Albumin 3.7 Procalcitonin Urine Color Urine Appearance Urine pH Ur Specific [place] Urine Protein Urine Glucose (UA) Urine Ketones Urine Blood Urine Nitrite Ur Leukocyte Esterase Urine RBC Urine WBC Ur Squamous Epith Cells Urine Bacteria Hyaline Casts Ur Random Sodium Urine Creatinine Random Vancomycin HIV 1&2 Ab/P24 Ag 4thGn Microbiology Microbiology Results: Microbiology 09/11/25 15:07 Blood Culture - Preliminary Blood - Venous No growth after 48 hours. 09/11/25 15:07 Blood Culture - Preliminary Blood - Venous No growth after 48 hours. Assessment and Plan (1) Hypotension: Status: Acute (2) Atrial fibrillation with RVR: Status: Acute (3) SIRS (systemic inflammatory response syndrome): Status: Acute Plan Patient is a 75-year-old male with a past medical history significant for new onset AFib on Eliquis, T2 dm on metformin, HTN and CAD, who presented to the ED due to dizziness weakness and fever. SIRS+, fever, tachycardia, source unknown, ?tick borne illness - pt with fevers, tachycardia, hypotension; hypotension treated with IVF and albumin - respiratory panel negative, A/P CT negative, UA negative x2, HIV negative - blood cultures negative after 48h - vancomycin and ceftriaxone 2g prophylactically x3 days; now on meropenem and doxy - check tick panel and Lyme -- pt regularly walks dog in [place], last known tick bite a couple of weeks ago - infectious disease consult - monitor CBC and CMP Recurrent fevers despite abx coverage - pt has spiked fevers as high as 104.1 on evening of 09/13 despite Tylenol and being on vancomycin and ceftriaxone; placed in cooling blanket - ABX changed to meropenem and doxycycline on 09/13 - suspicion most high for tick-borne illness, but babesiosis vs Lyme - has been afebrile since antibiotic shift - procalcitonin indeterminate at 0.67 - labs still pending: MRSA, Legionella and strep pneumo, while area and Babesia smear, tick panel AFib with RVR and ?mild CHF - HR has intermittently as high as 180s while activity - continues to be tachycardic with movement - CXR showing pulmonary edema, BNP increased today to 3933.7, though cardiology does not think is due to CHF - tachycardia often linked to fever and thus acute illness - pt given Lasix 20mg IV x2, will hold on addional doses - continue home metoprolol; hold on IV antihypertensives - monitor on telemetry Acute hypoxic respiratory failure - pt noted to be desatting to 72% on RA; asymptomatic - possibly secondary to AFib with RVR and/or CHF - titrate supplemental O2 >92, wean as tolerated - pt currently 99% on RA WILIAN, resolved - creatinine 1.18-->1.72 on 09/13 - today normalized to 1.24 - multifactorial: possibly cardio-renal and/or due to hypoperfusion form afib with RVR - follow creatinine hypotension, responsive to albumin and IVF - the pt was hypotensive as low as 72/45 in the ED - BP labial, has been as high as 176/98; currently normotensive - continue to hold amlodpine and HCTZ-valsartan for now - continue metoprolol and spironolactone - monitor BP closely anemia, chronic and stable - monitor CBC paroxysmal a fib - metorpolol and eliquis T2DM - SSI - diabetic diet - hold metformin CAD - ASA and statin esophagela wall thickening on CT - pt asx - f/u outpt with GI full code VTE prophy: Eliquis Pt with SIRS+ hypotension complicated by acute hypoxic respiratory failure and AFib with RVR, WILIAN, and recurrent fevers. Pt requires continued hospitalization for monitoring, treatment with empiric bax, and additional workup and specialist consultation with Infectious Disease. Quality Stroke Does the patient have a stroke diagnosis?: No VTE Prior VTE?: No VTE Risk Level:: Medical - moderate - high VTE Device Contraindication: Treatment Not Indicated VTE Drug Contraindication: N/A - Med Ordered
--- NOTE | 2025-09-14 12:48 | PM.PNCARD ---
Subjective Subjective Date of Service: 09/14/25 Interval history: Seen examined at bedside. He continues to have fevers and is now on doxycycline. Repeat his x-ray today and his central infiltrates are improved after gentle diuresis. Physical Exam Vital Signs: Last Vital Signs Temp 97.4 F 09/14/25 12:00 Pulse 82 09/14/25 12:00 Resp 20 09/14/25 12:00 BP 117/66 09/14/25 12:00 Pulse Ox 98 09/14/25 12:00 O2 Del Method Room Air 09/14/25 12:00 O2 Flow Rate 1 09/14/25 08:00 BMI result Body Mass Index 24.5 GENERAL APPEARANCE: in no acute distress, pleasant. NECK: no carotid bruit. No JVD. SKIN: no suspicious lesions, warm and dry. HEART: Systolic murmur aortic area, irregular rate and rhythm. LUNGS: Clear to auscultation. ABDOMEN: soft, nontender. EXTREMITIES: no edema. PERIPHERAL PULSES: equal. NEUROLOGIC: No gross deficits, AAO X 3 Objective Labs and Meds 09/14/25 08:40 09/14/25 08:40 Lab results: Laboratory Results - last 24 hr 09/13/25 09/13/25 09/13/25 16:16 18:14 19:04 WBC RBC Hgb Hct MCV MCH MCHC RDW Plt Count MPV Immature Gran % (Auto) Neut % (Auto) Lymph % (Auto) [place] % (Auto) Eos % (Auto) Baso % (Auto) Lymph # (Auto) [place] # (Auto) Eos # (Auto) Baso # (Auto) Abs Immat Gran (auto) Absolute Neuts (auto) Absolute Nucleated RBC Nucleated RBC % (auto) Sodium 135 Potassium 3.6 Chloride 103 Carbon Dioxide 23 Anion Gap 13 BUN 36 H Creatinine 1.72 H Estim Creat Clear Calc 43.6 Estimated GFR 39 POC Glucose 151 H Random Glucose 157 H Calcium 7.9 L Magnesium 1.6 Total Bilirubin 0.8 AST 41 H ALT 34 Alkaline Phosphatase 60 NT-Pro-B Natriuret Pep Total Protein 6.1 L Albumin 3.6 Procalcitonin 0.67 Urine Color Urine Appearance Urine pH Ur Specific [place] Urine Protein Urine Glucose (UA) Urine Ketones Urine Blood Urine Nitrite Ur Leukocyte Esterase Urine RBC Urine WBC Ur Squamous Epith Cells Urine Bacteria Hyaline Casts Ur Random Sodium Urine Creatinine Random Vancomycin 10.6 L HIV 1&2 Ab/P24 Ag 4thGn Nonreactive 09/13/25 09/13/25 09/14/25 20:22 22:58 07:47 WBC RBC Hgb Hct MCV MCH MCHC RDW Plt Count MPV Immature Gran % (Auto) Neut % (Auto) Lymph % (Auto) [place] % (Auto) Eos % (Auto) Baso % (Auto) Lymph # (Auto) [place] # (Auto) Eos # (Auto) Baso # (Auto) Abs Immat Gran (auto) Absolute Neuts (auto) Absolute Nucleated RBC Nucleated RBC % (auto) Sodium Potassium Chloride Carbon Dioxide Anion Gap BUN Creatinine Estim Creat Clear Calc Estimated GFR POC Glucose 130 H 135 H Random Glucose Calcium Magnesium Total Bilirubin AST ALT Alkaline Phosphatase NT-Pro-B Natriuret Pep Total Protein Albumin Procalcitonin Urine Color Dark Yellow Urine Appearance Cloudy Urine pH 5.0 Ur Specific [place] 1.025 Urine Protein 100 (2+) H Urine Glucose (UA) Negative Urine Ketones Trace Urine Blood Small (1+) H Urine Nitrite Negative Ur Leukocyte Esterase Negative Urine RBC 11-20 H Urine WBC 0-5 Ur Squamous Epith Cells 3-5 Urine Bacteria None Seen Hyaline Casts 11-20 Ur Random Sodium 48.0 Urine Creatinine 156.62 Random Vancomycin HIV 1&2 Ab/P24 Ag 4thGn 09/14/25 09/14/25 08:40 10:53 WBC 9.7 RBC 3.70 L Hgb 10.5 L Hct 32.8 L MCV 88.6 MCH 28.4 MCHC 32.0 RDW 15.8 Plt Count 204 MPV 10.9 Immature Gran % (Auto) 0.5 H Neut % (Auto) 77.5 H Lymph % (Auto) 16.9 L [place] % (Auto) 4.8 Eos % (Auto) 0.0 Baso % (Auto) 0.3 Lymph # (Auto) 1.6 [place] # (Auto) 0.5 Eos # (Auto) 0.0 Baso # (Auto) 0.0 Abs Immat Gran (auto) 0.05 H Absolute Neuts (auto) 7.5 Absolute Nucleated RBC 0.000 Nucleated RBC % (auto) 0.0 Sodium 139 Potassium 3.9 Chloride 104 Carbon Dioxide 25 Anion Gap 14 BUN 32 H Creatinine 1.24 Estim Creat Clear Calc 60.5 Estimated GFR 57 POC Glucose 155 H Random Glucose 178 H Calcium 8.5 D Magnesium Total Bilirubin 0.9 AST 42 H ALT 34 Alkaline Phosphatase 69 NT-Pro-B Natriuret Pep 4135.2 H Total Protein 6.4 L Albumin 3.7 Procalcitonin Urine Color Urine Appearance Urine pH Ur Specific [place] Urine Protein Urine Glucose (UA) Urine Ketones Urine Blood Urine Nitrite Ur Leukocyte Esterase Urine RBC Urine WBC Ur Squamous Epith Cells Urine Bacteria Hyaline Casts Ur Random Sodium Urine Creatinine Random Vancomycin HIV 1&2 Ab/P24 Ag 4thGn Progress Note: A&P Assessment and plan (1) Atrial fibrillation with RVR: Status: Acute (2) SIRS (systemic inflammatory response syndrome): Status: Acute (3) Acute CHF: Status: Acute Plan [age] year gentleman presenting with AFib with RVR. He also has high fevers with etiology unclear currently. He was here in August with orthostasis and at that time he was noticed to have thrombocytopenia. Apparently his pulled a tick from his back before that. He was diagnosed with new onset atrial fibrillation and mild cardiomyopathy with EF 40-45%. He was started on beta-blockers and apixaban and sent back home. He is now presenting with high fevers. He is on doxycycline for potential tick-borne illness. He received low-dose diuretics and his chest x-ray is improved significantly. He did have mild congestive heart failure. Start him on p.o. Lasix 20 mg daily. Continue the spironolactone. His echocardiography in August showed EF of 40 45% which was new. His BNP is rising significantly and clinically he is not acting like congestive heart failure. I think we should repeat the echocardiography to reassess the ejection fraction and I suspect he may have worsening cardiomyopathy. Thank you for allowing me to participate in the care of your patient. Please feel free to contact me if you have any questions. Time Spent With Patient Time: Total time managing care of this patient today ____ minutes. Progress Note: Quality Stroke Does the patient have a stroke diagnosis?: No Procedures Date of Service Date of Service: 09/14/25
[2025-09-14 15:04] LABS: MRSA Nasal PCR NEGATIVE (Negative); SA Nasal PCR NEGATIVE (Negative)
[2025-09-14 16:07] LABS: Glucose, Whole Blood 141 mg/dL (60-115)
--- NOTE | 2025-09-14 19:32 | P.CDIM_ITS ---
PROVIDER RESPONSE TEXT: To clarify, the appropriate diagnosis supported by the clinical indicators: Sepsis remains a known or suspected condition for this patient QUERY TEXT: PHYSICIAN'S DOCUMENTATION REQUEST Date of Query: 09/12/2025 08:24 AM EST Patient Name: Nam King Admit Date: 09/12/2025 Dear Rand ROBLERO, A review of the medical record indicates additional documentation may be needed. Please review below and update the documentation accordingly. The purpose of this query is not to question medical judgment, but to ensure the accuracy of the conditions reported for your patient. The diagnosis of Sepsis is documented in the record on 09/11/25 in the ER physician documentation. There is either a lack of clinical support for this condition in the current medical record, or there is a lack of recognized standard criteria to support the condition. Clinical Indicators: H&P 09/11/25 documents SIRS+, fever, tachycardia, source unknown, likely viral - hypotension likely polypharmacy WBC 7.9 temperature 102.1 pulse 109 [place] .8 Please clarify the documentation of Sepsis: Sepsis remains a known or suspected condition for this patient Sepsis has been ruled out and a more appropriate diagnosis for this patient's condition is Other (explain) Clinically unable to determine (explain) Thank you, Asuncion Paula RN Use of terms such as suspected, likely, concern for, or probable (associated with a specific diagnosis that is being evaluated, monitored, or treated as if it exists) are acceptable and can be coded in the inpatient setting, when documented at the time of discharge. Please use your independent medical judgment in providing your response. THIS QUERY IS PART OF THE PERMANENT MEDICAL RECORD
[2025-09-14 20:54] LABS: Glucose, Whole Blood 155 mg/dL (60-115)
[2025-09-15] VITALS (7 sets, daily range): BP systolic 90–126; BP diastolic 50–71; PULSE 61–104; RESP 17–20; TEMP 36.2–37.2; O2SAT 98–100
[2025-09-15 07:09] LABS: Glucose, Whole Blood 119 mg/dL (60-115)
--- NOTE | 2025-09-15 07:33 | P.PNIM_ITS ---
Subjective Subjective Date of Service: 09/15/25 Interval History: ID consulted for persistent fevers, appreciate recommendations Currently continuing to await tick panel Continue meropenem and doxycycline-doxycycline switch to p.o. TTE limited echo ordered, awaiting read Cardiology currently signing of Continue to monitor on telemetry Patient asymptomatic We will evaluate with PT tomorrow Barriers for discharge-need to ensure that tick panel results before discharging him as the management would change-we would initiate ceftriaxone IV for 14 days for possible Lyme carditis Review of Systems Review of Systems: Yes all other systems are reviewed and are negative Physical Exam 2 Vital Signs: Vital Signs: Last Vital Signs Temp 99.0 F 09/15/25 07:14 Pulse 90 09/15/25 07:14 Resp 20 09/15/25 07:14 BP 113/55 L 09/15/25 07:14 Pulse Ox 100 09/15/25 07:14 O2 Del Method Room Air 09/15/25 07:14 O2 Flow Rate 1 09/14/25 08:00 BMI result Body Mass Index 24.5 GENERAL APPEARANCE: in no acute distress, pleasant. NECK: no carotid bruit. No JVD. SKIN: no suspicious lesions, warm and dry. HEART: Systolic murmur aortic area, irregular rate and rhythm. LUNGS: Clear to auscultation. ABDOMEN: soft, nontender. EXTREMITIES: no edema. PERIPHERAL PULSES: equal. NEUROLOGIC: No gross deficits, AAO X 3 Objective Data Active Medications Acetaminophen (Acetaminophen 325 Mg Tablet) 650 mg PO Q6H PRN PRN Reason: Pain, Mild 1-3,fever,headache Last Admin: 09/12/25 11:57 Dose: 650 mg Documented By: ORALIA Apixaban (Apixaban 5 Mg Tablet) 5 mg PO BID [facility] Last Admin: 09/14/25 21:38 Dose: 5 mg Documented By: ANA Aspirin (Aspirin Enteric Coated 81 Mg Tablet.) 81 mg PO DAILY [facility] Last Admin: 09/14/25 09:43 Dose: 81 mg Documented By: PHIL Atorvastatin Calcium (Atorvastatin Calcium 80 Mg Tablet) 80 mg PO BEDTIME [facility] Last Admin: 09/14/25 21:38 Dose: 80 mg Documented By: ANA Calcium Carbonate (Calcium Carbonate 750 Mg Tab.Chew) 750 mg PO Q4H PRN PRN Reason: Heartburn Dextrose (Dextrose 50 % 25 Gm/50 Ml Syringe) 25 gm IVPUSH Q15M PRN; Protocol PRN Reason: per Hypoglycemia Standing Ord. Fluticasone Propionate (Fluticasone Propionate Nasal 16 Gm [place]) 1 spray NOSTRIL-B DAILY [facility] Last Admin: 09/14/25 09:52 Dose: 1 spray Documented By: PHIL Glucose (Glucose Gel 15 Gm Gel..Gram.) 15 gm PO Q15M PRN; Protocol PRN Reason: per Hypoglycemia Standing Ord. Acetaminophen (Ofirmev) 1,000 mg in 100 mls @ 400 mls/hr IV Q6H PRN PRN Reason: Fever Last Infusion: 09/14/25 00:10 Dose: Infused Documented By: SUBHASH Doxycycline Hyclate 100 mg/ (Sodium Chloride) 250 mls @ 166.67 mls/hr IV Q12H [facility] Last Infusion: 09/14/25 23:49 Dose: Infused Documented By: ANA Insulin Human Lispro (Insulin Lispro 100 Unit/Ml 3 Ml Vial) 0 unit SUBCUT QIDACHS [facility]; Protocol Last Admin: 09/14/25 21:38 Dose: 2 unit Documented By: ANA Magnesium Hydroxide (Milk Of Magnesia 30 Ml Oral.Susp) 30 ml PO DAILY PRN PRN Reason: Constipation Melatonin (Melatonin 3 Mg Tablet) 6 mg PO BEDTIME PRN PRN Reason: Insomnia Meropenem (Meropenem 1 Gm Vial) 1 gm IVPUSH Q12H [facility] Last Admin: 09/14/25 21:32 Dose: 1 gm Documented By: ANA Metoprolol Tartrate (Metoprolol Tartrate 50 Mg Tablet) 50 mg PO BID [facility]; Protocol Last Admin: 09/14/25 22:49 Dose: Not Given Documented By: ANA Non-Admin Reason: Physician Held Med Multivitamins/Vitamin C (Multivitamin Tablet) 1 tab PO DAILY [facility] Last Admin: 09/14/25 09:44 Dose: 1 tab Documented By: PHIL Ondansetron HCl (Ondansetron Hcl 4 Mg/2 Ml Vial) 4 mg IVPUSH Q8H PRN PRN Reason: Nausea and Vomiting Oxycodone HCl (Oxycodone Hcl Immed Release 5 Mg Tablet) 5 mg PO Q6H PRN PRN Reason: Pain, Severe (Pain Scale 7-10) Sodium Chloride (0.9 % Sodium Chloride Flush 3 Ml Syringe) 3 ml IVFLUSH QSHIFT [facility] Last Admin: 09/14/25 23:46 Dose: 3 ml Documented By: ANA Spironolactone (Spironolactone 25 Mg Tablet) 25 mg PO DAILY [facility]; Protocol Last Admin: 09/14/25 09:43 Dose: 25 mg Documented By: GISELEDONMatt Tramadol HCl (Tramadol Hcl 50 Mg Tablet) 50 mg PO Q6H PRN PRN Reason: Pain, Moderate(Pain Scale 4-6) Labs 09/14/25 08:40 09/14/25 08:40 Labs: Laboratory Results - last 24 hr 09/13/25 09/14/25 09/14/25 20:33 07:47 08:40 MCV 88.6 MCH 28.4 MCHC 32.0 RDW 15.8 Plt Count 204 MPV 10.9 Immature Gran % (Auto) 0.5 H Neut % (Auto) 77.5 H Lymph % (Auto) 16.9 L [place] % (Auto) 4.8 Eos % (Auto) 0.0 Baso % (Auto) 0.3 Lymph # (Auto) 1.6 [place] # (Auto) 0.5 Eos # (Auto) 0.0 Baso # (Auto) 0.0 Abs Immat Gran (auto) 0.05 H Absolute Neuts (auto) 7.5 Absolute Nucleated RBC 0.000 Nucleated RBC % (auto) 0.0 Anion Gap 14 Estim Creat Clear Calc 60.5 Estimated GFR 57 POC Glucose 135 H Random Glucose 178 H Calcium 8.5 D Total Bilirubin 0.9 AST 42 H ALT 34 Alkaline Phosphatase 69 NT-Pro-B Natriuret Pep 4135.2 H Total Protein 6.4 L Albumin 3.7 Nasal Screen MRSA (PCR) NEGATIVE Nasal S. aureus Screen NEGATIVE Nasal MRSA/S.aureus Interp SEE NOTE 09/14/25 09/14/25 09/14/25 10:53 16:01 20:44 MCV MCH MCHC RDW Plt Count MPV Immature Gran % (Auto) Neut % (Auto) Lymph % (Auto) [place] % (Auto) Eos % (Auto) Baso % (Auto) Lymph # (Auto) [place] # (Auto) Eos # (Auto) Baso # (Auto) Abs Immat Gran (auto) Absolute Neuts (auto) Absolute Nucleated RBC Nucleated RBC % (auto) Anion Gap Estim Creat Clear Calc Estimated GFR POC Glucose 155 H 141 H 155 H Random Glucose Calcium Total Bilirubin AST ALT Alkaline Phosphatase NT-Pro-B Natriuret Pep Total Protein Albumin Nasal Screen MRSA (PCR) Nasal S. aureus Screen Nasal MRSA/S.aureus Interp 09/15/25 07:00 MCV MCH MCHC RDW Plt Count MPV Immature Gran % (Auto) Neut % (Auto) Lymph % (Auto) [place] % (Auto) Eos % (Auto) Baso % (Auto) Lymph # (Auto) [place] # (Auto) Eos # (Auto) Baso # (Auto) Abs Immat Gran (auto) Absolute Neuts (auto) Absolute Nucleated RBC Nucleated RBC % (auto) Anion Gap Estim Creat Clear Calc Estimated GFR POC Glucose 119 H Random Glucose Calcium Total Bilirubin AST ALT Alkaline Phosphatase NT-Pro-B Natriuret Pep Total Protein Albumin Nasal Screen MRSA (PCR) Nasal S. aureus Screen Nasal MRSA/S.aureus Interp Assessment and Plan (1) Atrial fibrillation with RVR: Status: Acute Plan Patient is a 75-year-old male with a past medical history significant for new onset AFib on Eliquis, T2 dm on metformin, HTN and CAD, who presented to the ED due to dizziness weakness and fever. FUO - likely tick-borne disease babesiosis, anaplasmosis or viral tick borne disease like [place] Patient had an unusual presentation, initially presented with weakness and fever. Given his history of being around pets and long walks and a tick bite 2 weeks ago, patient was started on doxycycline and ceftriaxone. During this time, extensive workup has been done like echo, blood cultures, TTE , respiratory panel, CT abdomen pelvis, UA, HIV , prosthetic knee workup thus far negative. However patient spiked fevers of 103 and 104 and hence antibiotics had to be expanded to meropenem, has since been fever free. We repeated a limited echo as we need to rule out acute cardiomyopathy in the setting of new onset AFib with RVR and elevated BNP without significant evidence of hypervolemia. His sister has multiple myeloma and this was in differential but resolved pancytopenia. Vasculitis possible but pancytopenia resolving. Per ID: More likely is tick borne disease such as babesiosis or anaplasmosis or viral tickborne disease such as [place], Would await tick panels but if meantime Doxycycline 100 mg po bid for 10 days for anaplasmosis. Treat babesiosis if found. 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 - pt with fevers, tachycardia, hypotension; hypotension treated with IVF and albumin - respiratory panel negative, A/P CT negative, UA negative x2, HIV negative - blood cultures negative after 48h - vancomycin and ceftriaxone 2g prophylactically x3 days; now on meropenem and doxy as patient spiked fevers of 104 despite being on ceftriaxone for 3 days - checking tick panel and Lyme -- pt regularly walks dog in [place], last known tick bite a couple of weeks ago - infectious disease consulted, highly appreciate their recommendations - monitor CBC and CMP Recurrent fevers despite abx coverage - pt has spiked fevers as high as 104.1 on evening of 09/13 despite Tylenol and being on vancomycin and ceftriaxone; placed in cooling blanket - ABX changed to meropenem and doxycycline on 09/13 - suspicion most high for tick-borne illness, but babesiosis vs Lyme - has been afebrile since antibiotic shift - procalcitonin indeterminate at 0.67 - labs still pending: MRSA, Legionella and strep pneumo, while area and Babesia smear, tick panel AFib with RVR and ?mild CHF - HR has intermittently as high as 180s while activity - continues to be tachycardic with movement - CXR showing pulmonary edema, BNP increased today to 3933.7, though cardiology does not think is due to CHF - tachycardia often linked to fever and thus acute illness - pt given Lasix 20mg IV x2, will hold on addional doses - continue home metoprolol; hold on IV antihypertensives - monitor on telemetry Acute hypoxic respiratory failure - pt noted to be desatting to 72% on RA; asymptomatic - possibly secondary to AFib with RVR and/or CHF - titrate supplemental O2 >92, wean as tolerated - pt currently 99% on RA WILIAN, resolved - creatinine 1.18-->1.72 on 09/13 - today normalized to 1.24 - multifactorial: possibly cardio-renal and/or due to hypoperfusion form afib with RVR - follow creatinine hypotension, responsive to albumin and IVF - the pt was hypotensive as low as 72/45 in the ED - BP labial, has been as high as 176/98; currently normotensive - continue to hold amlodpine and HCTZ-valsartan for now - continue metoprolol and spironolactone - monitor BP closely anemia, chronic and stable - monitor CBC paroxysmal a fib - metorpolol and eliquis T2DM - SSI - diabetic diet - hold metformin CAD - ASA and statin esophagela wall thickening on CT - pt asx - f/u outpt with GI full code VTE prophy: Eliquis Pt with SIRS+ hypotension complicated by acute hypoxic respiratory failure and AFib with RVR, WILIAN, and recurrent fevers. Pt requires continued hospitalization for monitoring, treatment with empiric bax, and additional workup and specialist consultation with Infectious Disease. Still awaiting tick panel results as the patient would likely need IV ceftriaxone if tick panel positive for Lyme carditis Quality Stroke Does the patient have a stroke diagnosis?: No VTE Prior VTE?: No VTE Risk Level:: Medical - moderate - high VTE Device Contraindication: Treatment Not Indicated VTE Drug Contraindication: N/A - Med Ordered
[2025-09-15] MEDS: 0.9 % Sodium Chloride Flush 3 ML SYRINGE IVFLUSH ×3 (10:15→20:51)
[2025-09-15] MEDS: Aspirin Enteric Coated 81 MG TABLET.DR PO (10:16)
[2025-09-15 11:01] LABS: Glucose, Whole Blood 120 mg/dL (60-115)
--- NOTE | 2025-09-15 11:30 | CA_ITS ---
Transthoracic Echocardiogram Patient (Last, First, Middle): Nam King J Gender: Male Date of : 1950 Age: 75 Procedure Date: 09/15/2025 Procedure Type: Transthoracic Echocardiogram Location: [facility] [place] Height: 190. cm Weight: 89. kg BSA: 2.17 m2 Heart Rate: bpm BP: 122 / 68 mmHg Optical Instrument Assembler: Referring MD: Liz Greco MD [employer] Developer: Temo Nova MD Symptoms: sepisis , Afib workup, re-assess LVEF Study Quality: Good ECG Rhythm: Atrial Fibrillation Conclusions: - [id number] LV systolic dysfunction with LVEF of 40-45% with mild LVH Findings Left Ventricle Normal left ventricular cavity size. There is mildly increased left ventricular wall thickness. The left ventricular systolic function is mild to moderately decreased. The visually estimated ejection fraction is between 40-45%. Prior Study Comparison No significant change compared to prior study dated: 09/03/2025. Measurements 2D Linear Measurements IVSd: 1.37 0.6-0.9/0.6-1.0 cm LVIDd: 4.09 3.9-5.3/4.2-5.9 cm LVIDd Index: 1.88 2.4-3.2/2.2-3.1 cm/m2 LVIDs: 3.29 2.0-3.6 cm LVPWd: 1.23 0.7-1.1 cm LV Mass: 240.24 67-162/88-224 g LV Mass Index: 110.71 43-95/49-115 g/m2 2D Systolic Function EF 4C: 38.80 >55% EF 2C: 46.30 >55% EF BiP: 43.10 >55% Mitral Valve MV Pk E: 1.29 MV Decel Time: 198.00 E'Lateral: 17.10 E'Medial: 6.96 E/E' Med: 18.50 E/E' Lat: 7.50 PHT: 58.00 MVA PHT: 3.79 Decel [place]: 6.52 Diastolic Function MV Pk E: 1.29 E'Medial: 6.96 E/E' Med: 18.50 E' Laterial: 17.10 E/E' Lat: 7.50 Right Ventricle TAPSE (mm): 19.00 Updated in Other Vendor System with Status of Final Temo Nova MD electronically signed on 09/15/2025 3:43:27 PM with status of Final
--- NOTE | 2025-09-15 11:51 | PM.PNCARD ---
Subjective Subjective Date of Service: 09/15/25 Principal diagnosis: Atrial fibrillation, CHF Interval history: Patient is breathing well. BNP still elevated. Unclear reason. Remains in atrial fibrillation with controlled ventricular response on current medications. Review of Systems Constitutional: Reports no additional constitutional complaints Cardiovascular: Denies rapid heart rate, Denies leg edema, Denies palpitations, Denies dyspnea and Denies orthopnea Respiratory: Denies no additional respiratory complaints and Denies dyspnea Gastrointestinal: Reports no additional gastrointestinal complaints Genitourinary: Reports no additional male genitourinary complaints Endocrine: Denies palpitations Physical Exam Vital Signs: Last Vital Signs Temp 98.3 F 09/15/25 11:08 Pulse 74 09/15/25 11:08 Resp 20 09/15/25 11:08 BP 105/64 09/15/25 11:08 Pulse Ox 99 09/15/25 11:08 O2 Del Method Room Air 09/15/25 11:08 O2 Flow Rate 1 09/14/25 08:00 BMI result Body Mass Index 24.5 GENERAL APPEARANCE: in no acute distress, pleasant. NECK: no carotid bruit. No JVD. SKIN: no suspicious lesions, warm and dry. HEART: Systolic murmur aortic area, irregular rate and rhythm. LUNGS: Clear to auscultation. ABDOMEN: soft, nontender. EXTREMITIES: no edema. PERIPHERAL PULSES: equal. NEUROLOGIC: No gross deficits, AAO X 3 Objective Labs and Meds 09/14/25 08:40 09/14/25 08:40 Lab results: Laboratory Results - last 24 hr 09/13/25 09/14/25 09/14/25 20:33 16:01 20:44 POC Glucose 141 H 155 H Nasal Screen MRSA (PCR) NEGATIVE Nasal S. aureus Screen NEGATIVE Nasal MRSA/S.aureus Interp SEE NOTE 09/15/25 09/15/25 07:00 10:57 POC Glucose 119 H 120 H Nasal Screen MRSA (PCR) Nasal S. aureus Screen Nasal MRSA/S.aureus Interp Imaging Radiologist's impression: Impressions Chest X-Ray 09/14/25 11:53 IMPRESSION: Overall improved aeration since prior exam suggesting chronic interstitial lung disease with the mild interstitial lung edema. Superimposed acute small airway inflammatory versus infectious process cannot be excluded. Electronically signed by: Jerry Segal MD 09/15/2025 08:39 AM EST Progress Note: A&P Assessment and plan (1) Acute CHF: Status: Acute Assessment and Plan: Patient what appears to have acute CHF unclear etiology BNP is quite elevated. Question related to atrial fibrillation versus systemic inflammatory response syndrome. Clinically does not appear to be in significant heart failure. Although I will continue with spironolactone add low-dose Lasix 20 mg. Continue monitor clinically. Will need repeat echocardiogram to evaluate for acute cardiomyopathy process given his acute heart failure as well as persistent atrial fibrillation significantly elevated BNP. (2) Atrial fibrillation with RVR: Status: Acute Assessment and Plan: Atrial fibrillation with rapid ventricular response with rate is currently well controlled on metoprolol therapy. Continue metoprolol therapy. Continue full oral anticoagulation, currently on Eliquis 5 mg b.i.d.. Does not require concomitant aspirin therapy as this would increase his bleeding risk and aspirin can be discontinued for now. (3) Nonrheumatic aortic (valve) stenosis: Status: Acute Assessment and Plan: Aortic stenosis appears to be [id number]. Not clinically relevant during this hospitalization. Will be monitored as outpatient. Will sign off unless echocardiogram findings suggest otherwise Time Spent With Patient Time: Total time managing care of this patient today ____ minutes. Progress Note: Quality Stroke Does the patient have a stroke diagnosis?: No Procedures Date of Service Date of Service: 09/15/25
--- NOTE | 2025-09-15 14:33 | MHC.CM.PN ---
PER MD ROUNDS, PT NOT MEDICALLY CLEARED, ID CONSULT PENDING, LIKELY DC IN 1-2 DAYS
--- NOTE | 2025-09-15 14:48 | W.PM.IDCN ---
History of Present Illness Data of Consult Service Date: 09/15/25 Requesting physician: Liz Greco Primary Care Provider: Kevin Mtz MD HPI Reason for consult: fever of unknown origin He presents with weakness and fever and came in and tmperature 104.1 and tachycardic to 100s. He had admission with syncope 09/02-09/04 and discharged and was pancytopenic. He was discharged on metoprolol and eliquis. He has resolving pancytopenia. He reports imbedded tick two weeks ago and removed but no rash after and no antibiotics. He has not traveled this year. He has two [place] that are healthy. Review of Systems Review of Systems: Yes all other systems are reviewed and are negative PMFSH Past Medical History Medical History (Updated 09/15/25 @ 14:57 by Ellen Demarco MD) Fever of unknown origin Thrombocytopenia New onset a-fib Paroxysmal A-fib Trace mitral valve regurgitation Essential hypertension Type 2 diabetes mellitus with unspecified complications Bone spur of ankle Arthritis Back pain Sleep apnea with use of continuous positive airway pressure (CPAP) Hyperlipidemia Hypertension Family History Family History Father No problems noted. Mother No problems noted. Family history: reviewed and not pertinent Surgical History Surgical History History of total left knee replacement H/O varicose vein ligation Hx of laparoscopic gastric banding History of colonoscopy Social History Social History Household Members: Spouse Housing: House Are you a primary resident care coordinator to a significant other at home: No Do you presently have visiting nurse or other home services: No Alcohol intake: current Alcohol intake frequency: holidays/special occasions only Comment: standby assist Patient Tobacco Use Status: Former Tobacco user Tobacco use type: Cigarette Years Smoked: 5 +/- Smoked in Last 30 Days: No e-Cigarette/Vaping Use: Former Use Patient Given Instructions on How to Stop Smoking: No Second Hand Smoke Exposure: No Currently Displaying Signs/Symptoms of Drug Intoxication Withdrawal: No Have you been hit, kicked, punched, or otherwise hurt by someone within the past year? If so, by whom?: No Do you feel safe in your current relationship?: Yes Advance Directives: No Advance Directives Information Provided: Yes Do you have a plan to hurt others: No Plan Recently lost weight without trying: No How much weight loss: Not applicable Eating poorly because of decreased appetite: Yes Nutrition screen score: 1 Nutrition Risks: No Nutritional Risk Poor oral hygiene: No service: No Meds Allergies Allergy/AdvReac Type Severity Reaction Status Date / Time No Known Allergies (No Known Allergy Verified 09/11/25 13:15 Allergies*) Active Medications: Current Medications Acetaminophen (Acetaminophen 325 Mg Tablet) 650 mg PO Q6H PRN PRN Reason: Pain, Mild 1-3,fever,headache Last Admin: 09/12/25 11:57 Dose: 650 mg Apixaban (Apixaban 5 Mg Tablet) 5 mg PO BID [facility] Last Admin: 09/15/25 10:15 Dose: 5 mg Aspirin (Aspirin Enteric Coated 81 Mg Tablet.Dr) 81 mg PO DAILY [facility] Last Admin: 09/15/25 10:16 Dose: 81 mg Atorvastatin Calcium (Atorvastatin Calcium 80 Mg Tablet) 80 mg PO BEDTIME [facility] Last Admin: 09/14/25 21:38 Dose: 80 mg Calcium Carbonate (Calcium Carbonate 750 Mg Tab.Chew) 750 mg PO Q4H PRN PRN Reason: Heartburn Dextrose (Dextrose 50 % 25 Gm/50 Ml Syringe) 25 gm IVPUSH Q15M PRN; Protocol PRN Reason: per Hypoglycemia Standing Ord. Fluticasone Propionate (Fluticasone Propionate Nasal 16 Gm [place]) 1 spray NOSTRIL-B DAILY [facility] Last Admin: 09/15/25 10:16 Dose: 1 spray Glucose (Glucose Gel 15 Gm Gel..Gram.) 15 gm PO Q15M PRN; Protocol PRN Reason: per Hypoglycemia Standing Ord. Doxycycline Hyclate 100 mg/ (Sodium Chloride) 250 mls @ 166.67 mls/hr IV Q12H [facility] Last Infusion: 09/15/25 11:48 Dose: Infused Insulin Human Lispro (Insulin Lispro 100 Unit/Ml 3 Ml Vial) 0 unit SUBCUT QIDACHS [facility]; Protocol Last Admin: 09/15/25 11:03 Dose: Not Given Magnesium Hydroxide (Milk Of Magnesia 30 Ml Oral.Susp) 30 ml PO DAILY PRN PRN Reason: Constipation Melatonin (Melatonin 3 Mg Tablet) 6 mg PO BEDTIME PRN PRN Reason: Insomnia Meropenem (Meropenem 1 Gm Vial) 1 gm IVPUSH Q8H [facility] Last Admin: 09/15/25 11:49 Dose: 1 gm Metoprolol Tartrate (Metoprolol Tartrate 50 Mg Tablet) 50 mg PO BID [facility]; Protocol Last Admin: 09/15/25 10:15 Dose: 50 mg Multivitamins/Vitamin C (Multivitamin Tablet) 1 tab PO DAILY [facility] Last Admin: 09/15/25 10:15 Dose: 1 tab Ondansetron HCl (Ondansetron Hcl 4 Mg/2 Ml Vial) 4 mg IVPUSH Q8H PRN PRN Reason: Nausea and Vomiting Oxycodone HCl (Oxycodone Hcl Immed Release 5 Mg Tablet) 5 mg PO Q6H PRN PRN Reason: Pain, Severe (Pain Scale 7-10) Sodium Chloride (0.9 % Sodium Chloride Flush 3 Ml Syringe) 3 ml IVFLUSH QSHIFT [facility] Last Admin: 09/15/25 10:15 Dose: 3 ml Spironolactone (Spironolactone 25 Mg Tablet) 25 mg PO DAILY [facility]; Protocol Last Admin: 09/15/25 10:16 Dose: 25 mg Tramadol HCl (Tramadol Hcl 50 Mg Tablet) 50 mg PO Q6H PRN PRN Reason: Pain, Moderate(Pain Scale 4-6) Home Medications ?Medication ?Instructions ?Recorded ?Confirmed ?Last Taken ?Type amlodipine 10 mg tablet 10 mg PO DAILY 06/17/21 09/11/25 09/11/25 History atorvastatin 80 mg tablet 80 mg PO BEDTIME 06/20/22 09/11/25 09/11/25 History valsartan 320 1 tab PO DAILY 07/04/23 09/11/25 09/11/25 History mg-hydrochlorothiazide 12.5 mg tablet metformin 500 mg tablet,extended 500 mg PO BID 05/07/24 09/11/25 09/11/25 History release 24 hr fluticasone propionate 50 1 spray intranasal DAILY 08/08/24 09/11/25 09/11/25 History mcg/actuation nasal spray,suspension aspirin 81 mg tablet 81 mg PO DAILY 09/02/25 09/11/25 09/11/25 History multivitamin 1 tab PO DAILY 09/11/25 09/11/25 09/11/25 History Physical Exam Vital Signs: Vital Signs: Last Vital Signs Temp 98.3 F 09/15/25 11:08 Pulse 74 09/15/25 11:08 Resp 20 09/15/25 11:08 BP 105/64 09/15/25 11:08 Pulse Ox 99 09/15/25 11:08 O2 Del Method Room Air 09/15/25 11:08 O2 Flow Rate 1 09/14/25 08:00 BMI result Body Mass Index 24.5 Const: General: cooperative HEENT: Head: Yes normal to inspection Face and sinus: Yes normal facial exam Mouth: Normal oral and palatal mucosa present Teeth and gingiva: dentition normal Eyes: General: appearance normal, both eyes and all related structures Pupils: Equal, round and reactive pupils present Resp: Effort & Inspection: normal respiratory effort Cardio: Other: 2/6 right sternal border systolic murmur Rate: regular rate Rhythm: regular rhythm GI: Palpation (GI): Soft to palpation and nontender : General: Yes no CVA tenderness Back/Spine/Pelvis: Back: no CVA tenderness Skin: General skin exam: no rashes or lesions noted Neuro: General: moves all extremities Cranial nerves: Yes Equal, round and reactive pupils present Extrem: Other: left TKR clear Psych: Appearance: grossly normal Results Labs 09/14/25 08:40 09/14/25 08:40 Microbiology Microbiology Results: Microbiology 09/11/25 15:07 Blood - Venous Blood Culture - Preliminary No growth after 48 hours. 09/11/25 15:07 Blood - Venous Blood Culture - Preliminary No growth after 48 hours. Assessment and Plan (1) Fever of unknown origin: Status: Acute Plan He had syncope and then pancytopenia. The PROSPER on 09/03 showed no evidence of endocarditis and blood cultures are negative. His lungs and prosthetic knee are unremarkable as is urine. His sister has multiple myeloma and this was in differential but resolved pancytopenia. Vasculitis possible but pancytopenia resolving. More likely is tick borne disease such as babesiosis or anaplasmosis or viral tickborne disease such as [place], Would await tick panels but if meantime Doxycycline 100 mg po bid for 10 days for anaplasmosis. Treat babesiosis if found. If Lyme is positive would give 14 d IV 2 g daily Ceftriaxone also treat possible Lyme carditis even with negative echo (at least 2 people per year have sudden catastrophic Lyme carditis) May stop piperacillin/tazobactam.
[2025-09-15 16:11] LABS: Glucose, Whole Blood 167 mg/dL (60-115)
[2025-09-15 21:03] LABS: Glucose, Whole Blood 107 mg/dL (60-115)
[2025-09-15 23:04] LABS: Lyme Blot 1.48 index
[2025-09-16] VITALS: BP 136/66; PULSE 45; RESP 18; TEMP 36.4; O2SAT 98
[2025-09-16 03:26] VITALS: BP 118/76; PULSE 58; RESP 18; TEMP 36; O2SAT 98
[2025-09-16 05:42] LABS: A. Phagocytphilium DNA,RT-PCR DETECTED (NOT DETECTED); Babesia Microti DNA, RT-PCR NOT DETECTED (NOT DETECTED); Borrelia Miyamotoi,DNA RT-PCR NOT DETECTED (NOT DETECTED); E.Chaffeensis DNA RT-PCR NOT DETECTED (NOT DETECTED); Lyme(Borrelia ssp)DNA RT-PCR NOT DETECTED (NOT DETECTED)
[2025-09-16 07:13] LABS: Glucose, Whole Blood 113 mg/dL (60-115)
[2025-09-16 07:15] VITALS: BP 117/70; PULSE 80; RESP 18; TEMP 36.4; O2SAT 98
--- NOTE | 2025-09-16 07:15 | P.PNIM_ITS ---
Subjective Subjective Date of Service: 09/16/25 Physical Exam 2 Vital Signs: Vital Signs: Last Vital Signs Temp 96.8 F 09/16/25 03:26 Pulse 58 09/16/25 03:26 Resp 18 09/16/25 03:26 BP 118/76 09/16/25 03:26 Pulse Ox 98 09/16/25 03:26 O2 Del Method CPAP 09/16/25 03:26 O2 Flow Rate 1 09/14/25 08:00 BMI result Body Mass Index 24.5 Objective Data Active Medications Acetaminophen (Acetaminophen 325 Mg Tablet) 650 mg PO Q6H PRN PRN Reason: Pain, Mild 1-3,fever,headache Last Admin: 09/12/25 11:57 Dose: 650 mg Documented By: ORALIA Apixaban (Apixaban 5 Mg Tablet) 5 mg PO BID [facility] Last Admin: 09/15/25 20:49 Dose: 5 mg Documented By: JUSTINA Aspirin (Aspirin Enteric Coated 81 Mg Tablet.) 81 mg PO DAILY [facility] Last Admin: 09/15/25 10:16 Dose: 81 mg Documented By: ANDRE Atorvastatin Calcium (Atorvastatin Calcium 80 Mg Tablet) 80 mg PO BEDTIME [facility] Last Admin: 09/15/25 20:49 Dose: 80 mg Documented By: JUSTINA Calcium Carbonate (Calcium Carbonate 750 Mg Tab.Chew) 750 mg PO Q4H PRN PRN Reason: Heartburn Dextrose (Dextrose 50 % 25 Gm/50 Ml Syringe) 25 gm IVPUSH Q15M PRN; Protocol PRN Reason: per Hypoglycemia Standing Ord. Doxycycline Monohydrate (Doxycycline Monohydrate 100 Mg Capsule) 100 mg PO Q12H [facility] Stop: 09/22/25 21:59 Last Admin: 09/15/25 20:50 Dose: 100 mg Documented By: JUSTINA Fluticasone Propionate (Fluticasone Propionate Nasal 16 Gm [place]) 1 spray NOSTRIL-B DAILY [facility] Last Admin: 09/15/25 10:16 Dose: 1 spray Documented By: ANDRE Glucose (Glucose Gel 15 Gm Gel..Gram.) 15 gm PO Q15M PRN; Protocol PRN Reason: per Hypoglycemia Standing Ord. Insulin Human Lispro (Insulin Lispro 100 Unit/Ml 3 Ml Vial) 0 unit SUBCUT QIDACHS [facility]; Protocol Last Admin: 09/15/25 20:53 Dose: Not Given Documented By: JUSTINA Non-Admin Reason: No Insulin Coverage Magnesium Hydroxide (Milk Of Magnesia 30 Ml Oral.Susp) 30 ml PO DAILY PRN PRN Reason: Constipation Melatonin (Melatonin 3 Mg Tablet) 6 mg PO BEDTIME PRN PRN Reason: Insomnia Meropenem (Meropenem 1 Gm Vial) 1 gm IVPUSH Q8H [facility] Last Admin: 09/16/25 01:58 Dose: 1 gm Documented By: JUSTINA Metoprolol Tartrate (Metoprolol Tartrate 50 Mg Tablet) 50 mg PO BID [facility]; Protocol Last Admin: 09/15/25 20:53 Dose: Not Given Documented By: JUSTINA Non-Admin Reason: Decreased Blood Pressure Comments: MD notified Multivitamins/Vitamin C (Multivitamin Tablet) 1 tab PO DAILY [facility] Last Admin: 09/15/25 10:15 Dose: 1 tab Documented By: ANDRE Ondansetron HCl (Ondansetron Hcl 4 Mg/2 Ml Vial) 4 mg IVPUSH Q8H PRN PRN Reason: Nausea and Vomiting Oxycodone HCl (Oxycodone Hcl Immed Release 5 Mg Tablet) 5 mg PO Q6H PRN PRN Reason: Pain, Severe (Pain Scale 7-10) Sodium Chloride (0.9 % Sodium Chloride Flush 3 Ml Syringe) 3 ml IVFLUSH QSHIFT [facility] Last Admin: 09/15/25 20:51 Dose: 3 ml Documented By: JUSTINA Spironolactone (Spironolactone 25 Mg Tablet) 25 mg PO DAILY [facility]; Protocol Last Admin: 09/15/25 10:16 Dose: 25 mg Documented By: ANDRE Tramadol HCl (Tramadol Hcl 50 Mg Tablet) 50 mg PO Q6H PRN PRN Reason: Pain, Moderate(Pain Scale 4-6) Labs 09/14/25 08:40 09/14/25 08:40 Labs: Laboratory Results - last 24 hr 09/13/25 09/13/25 09/15/25 07:17 08:47 10:57 POC Glucose 120 H A.phagocytophil DNA PCR DETECTED A Babesia microti DNA PCR NOT DETECTED Borrelia sp DNA (PCR) NOT DETECTED Lyme Progressive Test 1.48 H Borrelia miyamotoi (PCR) NOT DETECTED E.chaffeensis DNA (PCR) NOT DETECTED Tick-borne Disease PCR SEE NOTE 09/15/25 09/15/25 09/16/25 16:06 20:50 07:00 POC Glucose 167 H 107 113 A.phagocytophil DNA PCR Babesia microti DNA PCR Borrelia sp DNA (PCR) Lyme Progressive Test Borrelia miyamotoi (PCR) E.chaffeensis DNA (PCR) Tick-borne Disease PCR Quality Stroke Does the patient have a stroke diagnosis?: No VTE Prior VTE?: No VTE Risk Level:: Medical - moderate - high VTE Device Contraindication: Treatment Not Indicated VTE Drug Contraindication: N/A - Med Ordered
[2025-09-16 08:13] LABS: Lyme Abs Screen POSITIVE
[2025-09-16] MEDS: 0.9 % Sodium Chloride Flush 3 ML SYRINGE IVFLUSH ×2 (09:52→17:00)
[2025-09-16] MEDS: Aspirin Enteric Coated 81 MG TABLET.DR PO (09:52)
--- NOTE | 2025-09-16 10:56 | P.DS_ITS ---
DS: Providers Provider Date of Service: 09/16/25 Date of admission: 09/11/25 21:22 Date of discharge: 09/16/25 Primary care physician: Kevin Mtz MD Consults: 09/12/25 07:21 Consult to Cardiology Routine Consulting Provider: [facility] Reason for consultation: AFib with RVR; HR in 180s with movement, 120-130s with rest 09/13/25 07:11 Consult to Infectious Diseases Routine Consulting Provider: [facility] Reason for consultation: Recurrent fever of unknown origin 09/13/25 13:53 Consult to Cardiology Routine Consulting Provider: [facility] Reason for consultation: afib Has provider been notified: Yes DS: Diagnosis Discharge Diagnosis (1) Atrial fibrillation with RVR: Status: Acute DS: Summary Hospital Course Hospital Course: Lyme carditis, 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 Patient had an unusual presentation, initially presented with weakness and fever. Given his history of being around pets and long walks and a tick bite 2 weeks ago, patient was started on doxycycline and ceftriaxone. During this time, extensive workup has been done like echo, blood cultures, TTE , respiratory panel, CT abdomen pelvis, UA, HIV , prosthetic knee workup thus far negative. However patient spiked fevers of 103 and 104 and hence antibiotics had to be expanded to meropenem, has since been fever free. We repeated a limited echo as we need to rule out acute cardiomyopathy in the setting of new onset AFib with RVR and elevated BNP without significant evidence of hypervolemia. His sister has multiple myeloma and this was in differential but resolved pancytopenia. Vasculitis possible but pancytopenia resolving. Per ID: More likely is tick borne disease such as babesiosis or anaplasmosis or viral tickborne disease such as [place], Initially deemed tick-borne illness and was treated with ceftriaxone, however he continued to spike fevers as high as 104 despite being on 2 g of ceftriaxone, and hence he was switched to meropenem. Ultimately the tick panel came back positive for Lyme and Anaplasma on 09/16/2025, after ID consultation and Cardiology consultation, he is being placed on ceftriaxone 2 g 14 day course. He is receiving a midline for administration of the same. We will also likely need VNA services for administration of the same. AFib with RVR and ?mild CHF Patient likely had new onset AFib with RVR and elevated BNP which is likely in the setting of his current illness. Cardiology was consulted, underwent 2 rounds of echo which did not show any new changes. Cardiology was consulted for possible AE HFpEF however this was deemed less likely hence Lasix which was ini tiated for heart failure was stopped during this admission. We continued anticoagulation and heart rate medication,, monitored him on telemetry and EKG and troponin which have thus far been unremarkable for any CAD. Patient needs to follow up with outpatient Cardiology for further medical management Acute hypoxic respiratory failure likely secondary to cardiogenic and pulmonary, AFib with RVR HFpEF - pt noted to be desatting to 72% on RA; asymptomatic - possibly secondary to AFib with RVR and/or CHF Patient has been not hypoxic on room air since day 2 of hospitalization. WILIAN, likely prerenal, cardiorenal resolved with fluids hypotension, responsive to albumin and IVF -was briefly hypotensive and was given fluids and albumin with good response. Likely secondary to hypovolemia in the setting of sepsis secondary to line and Anaplasma. Blood pressure medications were held at that time and resumed at the time of discharge without any incident. anemia, chronic and stable as well as secondary to Lyme - monitored CBC, follow-up outpatient [id number] managed on diabetic diet and insulin while inpatient with good effect. CAD - continue ASA and statin esophagela wall thickening on CT- pt asx- f/u outpt with GI full code VTE prophy: Trudyjoycenéstor Patient has been deemed hemodynamically stable and given the tick panel results, he is getting a midline and he will get 14 days of ceftriaxone and with VNA services. He will follow up with cardiology, ID, Neurology, PCP outpatient. Patient did not need any PT services at the time of the discharge. Time spent discussing smoking cessation with patient: more than 10 minutes Status at Discharge Functional status at discharge: independent ambulation Overall status at discharge: patient is back to baseline Time Attestation Discharge Coordination Time (in mins): 55 Quality: Safe Use of Opioids Does Pt have an Active Cancer Diagnosis on the Problem List?: No Quality: Stroke Does the patient have a stroke diagnosis?: No Physical Exam Vital Signs: Vital Signs: Last Vital Signs Temp 97.6 F 09/16/25 07:15 Pulse 80 09/16/25 07:15 Resp 18 09/16/25 07:15 BP 117/70 09/16/25 07:15 Pulse Ox 98 09/16/25 07:15 O2 Del Method Room Air 09/16/25 07:15 O2 Flow Rate 1 09/14/25 08:00 BMI result Body Mass Index 24.5 DS: Data Data Completed and Pending Completed studies during hospitalization [Text1]: Procedures Assistance with Respiratory Ventilation, Less than 24 Consecutive Hours, Continuous Positive Airway Pressure (09/02/25) Labs on day of discharge: Laboratory Results - last 24 hr 09/13/25 09/13/25 09/15/25 07:17 08:47 10:57 POC Glucose 120 H A.phagocytophil DNA PCR DETECTED A Babesia microti DNA PCR NOT DETECTED Borrelia sp DNA (PCR) NOT DETECTED Lyme Screen IgG & IgM POSITIVE Lyme Progressive Test 1.48 H Borrelia miyamotoi (PCR) NOT DETECTED E.chaffeensis DNA (PCR) NOT DETECTED Tick-borne Disease PCR SEE NOTE 09/15/25 09/15/25 09/16/25 16:06 20:50 07:00 POC Glucose 167 H 107 113 A.phagocytophil DNA PCR Babesia microti DNA PCR Borrelia sp DNA (PCR) Lyme Screen IgG & IgM Lyme Progressive Test Borrelia miyamotoi (PCR) E.chaffeensis DNA (PCR) Tick-borne Disease PCR Preliminary micro results at discharge 09/11/25 15:07 Blood Culture - Preliminary Blood - Venous No growth after 48 hours. 09/11/25 15:07 Blood Culture - Preliminary Blood - Venous No growth after 48 hours. 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 Referrals: Kevin Mtz MD [Primary Care Provider, Medical] - 1 Week Ellen Demarco MD [Physician, Infectious Disease] - 1 Week Discharge Medications: New ceftriaxone 2 gram Recon Soln 2 g IV Q24H 14 Days Qty: 14 0RF doxycycline monohydrate 100 mg Capsule 100 mg PO Q12H 6 Days Qty: 12 0RF Continued spironolactone 25 mg tablet 25 mg PO DAILY Qty: 90 3RF atorvastatin 80 mg tablet 80 mg PO BEDTIME metformin 500 mg tablet extended release 24 hr 500 mg PO BID aspirin 81 mg Tablet 81 mg PO DAILY metoprolol succinate 25 mg Tablet Extended Release 24 Hr 25 mg PO DAILY Qty: 30 0RF Protocol: Hold for SBP/HR < HOLD for SBP < : 90 HOLD for HR < : 60 Eliquis 5 mg tablet 5 mg PO BID Qty: 60 0RF multivitamin Tablet 1 tab PO DAILY amlodipine 10 mg tablet 10 mg PO DAILY valsartan-hydrochlorothiazide 320-12.5 mg tablet 1 tab PO DAILY fluticasone propionate 50 mcg/actuation spray,suspension 1 spray intranasal DAILY Discharge Orders: Discharge Order (Routine); Ordered 09/16/25 Ordered By: Liz Greco Diet: Low salt diet Activity on Discharge: As tolerated Stand Alone Forms: Patient Portal Discharge page Print Language: Georgian Activity Restrictions/Additional Instructions: Lyme carditis restrictions Patients with Lyme carditis should avoid strenuous activity 1 and competitive sports until cardiac conduction has normalized and the TX interval is <200 ms on ECG 2 . Activity should be limited to light daily tasks, with no heavy lifting, intense exercise, or sports until cleared by cardiology. If high-degree AV block or significant arrhythmias persist, restrict driving and avoid alcohol and stimulants. Resume activity only after ECG normalization and clinical stability, with gradual return guided by cardiology 2 . General activity restrictions Strenuous physical activity: Avoid strenuous exercise, heavy lifting, and competitive sports until cardiac conduction normalizes and the TX interval is <200 ms on ECG 2 . Light daily activities: Light daily tasks are acceptable if tolerated, but avoid exertion that causes symptoms. Alcohol and stimulants: Avoid alcohol, caffeine, and stimulants that can exacerbate arrhythmias. Specific activity restrictions based on clinical severity Clinical severity Activity restrictions Mild (first-degree AV block, TX <300 ms) - Light daily activities - No strenuous exercise or competitive sports 2 Moderate (second-degree AV block, TX 300?400 ms) - Strict activity restriction - No strenuous activity - No driving until stable Severe (third-degree AV block, TX >400 ms, or significant arrhythmias) - Com plete activity restriction - Hospitalization with continuous ECG monitoring 3 - No driving or operating machinery Duration of activity restrictions Activity restrictions should continue until cardiac conduction normalizes (TX interval <200 ms) and the patient is clinically stable 2 . Most patients recover within 1?6 weeks with appropriate antibiotics and supportive care 4 . Gradual return to activity is guided by cardiology, with ECG confirmation of normalization 2 . Care Plan Goals: Please see your PCP within a week after discharge Please see Cardiology for follow-up Please refer to the activity restrictions in the instructions Please complete your antibiotic course 14 days of ceftriaxone and 5-1/2 days of doxycycline Please see ID physician within a week of discharge for follow-up Health Concerns: See above Plan of Treatment: See above Assessment: See above
[2025-09-16 11:05] LABS: Glucose, Whole Blood 126 mg/dL (60-115)
[2025-09-16 11:06] VITALS: BP 102/56; PULSE 80; RESP 18; TEMP 36.1; O2SAT 99
--- NOTE | 2025-09-16 11:39 | MHC.CM.PN ---
Addendum entered by Heather Romero 09/16/25 15:25: SECOND IMM GIVEN 09/16. PATIENT WILL HAVE [facility], HE WILL NOT NEED VNA SERVICES. DP: HOME WITH [facility], TO TRANSPORT HIM HOME TODAY. Original Note: EMR REVIEWED AND PER MD ROUNDS, PATIENT IS MEDICALLY CLEARED FOR DISCHARGE HOME WITH HOME INFUSION SERVICES FOR 2 WEEKS IV ABX, AND NEW VNA SERVICES. THIS CM MET WITH PATIENT AND HIS PRESENT AT BEDSIDE, THEY ARE IN AGREEMENT WITH GOING HOME WITH THE NEW SERVICES. MIDLINE PLACEMENT PENDING TODAY. [facility]IA[facility] IS ON HER WAY IN FOR THE IV TEACH. AWAITING VNA AGENCY ACCEPTANCE.
--- NOTE | 2025-09-16 11:48 | P.F2F_ITS ---
Service Date Service Date: 09/16/25 Encounter Date of encounter: 09/16/25 Reasons for Services Signs and symptoms assessed: Medication management Reason for chcf: medication management Homebound: Leaving the home is medically contraindicated at this time without the asist of a device and/or another person due th the listed conditions above and below. Reason homebound: unsteady gait / fall risk Certification: Based on the above findings, I certify that this patient is confined to the home and needs intermittent chcf care, physical therapy and/or speech therapy, or continues to need occupational therapy. The patient is under my care, and I have initiated the establishment of the plan of care. The patient will be followed by a physician who will periodically review the plan of care. Time Spent With Patient Time: Total time managing care of this patient today ____ minutes.
[2025-09-16 15:40] VITALS: BP 118/64; PULSE 65; RESP 18; TEMP 35.9; O2SAT 99
[2025-09-16 17:03] LABS: Glucose, Whole Blood 129 mg/dL (60-115)
--- NOTE | 2025-09-16 17:11 | HO.MIDLINE ---
Midline Insertion MIDLINE INSERTION Diagnosis: lyme disease Indication: 2 wks abt Pertinent Labs: reviewed Technique: Using sterile technique including cap and mask, glove and drape, the right arm was prepped and draped in the usual sterile fashion of full barrier technique with CHG. Using ultrasound guidance, right basilic vein access was obtained . 4fr single lumen nonPASV powermidline was positioned. The procedure was performed in 7. Ultrasound was used to document vein patency and for needle entry. A formal ultrasound picture was recorded. V[employer] Tool [employer] Maker/Designer has released the line for use and it is currently dressed with a StatLock, Tegaderm, and CHG disc. Verification has been performed for blood return and line patency. Arm Circumference: 28cm Equipment: BARD power midline catheter Catheter Type: 4fr single lumen non PASV power midline Lot #: [id number]
[2025-09-16 17:23] LABS: 39KD (IgG) Band REACTIVE; 41KD (IgG) Band REACTIVE; Lyme IgG Blot Interp POSITIVE (NEGATIVE); Lyme IgM Blot Interp NEGATIVE (NEGATIVE)
[2025-09-16] MEDS: Heparin Sodium,Porcine Flush 500 UNIT/5 ML SYRINGE IVFLUSH (17:41)
[2025-09-16 21:23] LABS: Strep Pneumo Ag urine Not Detected (Not Detected)
== END 2025-09-16 18:16 | disposition home or self-care (01) | DRG 871 ==
LOC: HO.ED 16:32 → HO.EDOVER 21:26 → HO.IMC 23:58
PROVIDERS: Physician Assistant Medical; Student in an Organized Health Care Education/Training Program; Admitting Provider Physician Assistant; Emergency Provider Emergency Medicine; PCP Internal Medicine; Visit Provider Student in an Organized Health Care Education/Training Program
DX: A41.9 Sepsis, unspecified organism (principal); J96.01 Acute respiratory failure with hypoxia; A69.29 Other conditions associated with Lyme disease; N17.9 Acute kidney failure, unspecified; I50.32 Chronic diastolic (congestive) heart failure; A79.82 Anaplasmosis [A. phagocytophilum]; I25.10 Atherosclerotic heart disease of native coronary artery without angina pectoris; I95.2 Hypotension due to drugs; T50.915A Adverse effect of multiple unspecified drugs, medicaments and biological substances, initial encounter; I48.0 Paroxysmal atrial fibrillation; D64.9 Anemia, unspecified; I11.0 Hypertensive heart disease with heart failure; R93.3 Abnormal findings on diagnostic imaging of other parts of digestive tract; W57.XXXS Bitten or stung by nonvenomous insect and other nonvenomous arthropods, sequela; Z20.822 Contact with and (suspected) exposure to COVID-19; E86.1 Hypovolemia; Z95.5 Presence of coronary angioplasty implant and graft; Z87.891 Personal history of nicotine dependence; Z79.51 Long term (current) use of inhaled steroids; Z79.01 Long term (current) use of anticoagulants; Z79.82 Long term (current) use of aspirin; Z79.899 Other long term (current) drug therapy
CPT/HCPCS: 36410; 36415; 71045; 71046; 71275; 74176; 80053; 80202; 81001; 82570; 82947; 83605; 83690; 83735; 83880; 84145; 84300; 84484; 85025; 85610; 86617; 86618; 87040; 87207; 87389; 87449; 87468; 87469; 87478; 87484; 87502; 87633; 87635; 87640; 87641; 87798; 87899; 93005; 93308; 93970; 99285; C1751; J0131; J0616; J0696; J1271; J1642; J1938; J2185; J3373; J3374; J7120; P9047; Q9957; Q9967

== ENCOUNTER → 2025-09-11 13:14 | Outpatient (BNV) | payer MEDICARE, SELFPAY | PROVIDERS: Emergency Provider Emergency Medicine; PCP Internal Medicine; Visit Provider Radiology Diagnostic Radiology | DX: K22.89 Other specified disease of esophagus (principal); R91.8 Other nonspecific abnormal finding of lung field | CPT/HCPCS: 71046; 71275 ==

== ENCOUNTER 2025-09-11 21:22 | Outpatient (BNV) | payer MEDICARE, SELFPAY | END 2025-09-15 11:30 | PROVIDERS: Admitting Provider Physician Assistant; Emergency Provider Emergency Medicine; PCP Internal Medicine; Visit Provider Internal Medicine Cardiovascular Disease | DX: A41.9 Sepsis, unspecified organism (principal); I48.91 Unspecified atrial fibrillation | CPT/HCPCS: 93308 ==

== ENCOUNTER 2025-09-11 21:22 | Outpatient (BNV) | payer MEDICARE, SELFPAY | END 2025-09-12 06:51 | PROVIDERS: Admitting Provider Physician Assistant; Emergency Provider Emergency Medicine; PCP Internal Medicine; Visit Provider Internal Medicine Cardiovascular Disease | DX: I48.91 Unspecified atrial fibrillation (principal); I44.7 Left bundle-branch block, unspecified | CPT/HCPCS: 93010 ==

== ENCOUNTER 2025-09-11 21:22 | Outpatient (BNV) | payer MEDICARE, SELFPAY | END 2025-09-12 08:03 | PROVIDERS: Admitting Provider Physician Assistant; Emergency Provider Emergency Medicine; PCP Internal Medicine; Visit Provider Radiology Diagnostic Radiology | DX: J81.1 Chronic pulmonary edema (principal) | CPT/HCPCS: 71045 ==

== ENCOUNTER 2025-09-11 21:22 | Outpatient (BNV) | payer MEDICARE, SELFPAY | END 2025-09-14 08:23 | PROVIDERS: Admitting Provider Physician Assistant; Emergency Provider Emergency Medicine; PCP Internal Medicine; Visit Provider Radiology Diagnostic Radiology | DX: R22.43 Localized swelling, mass and lump, lower limb, bilateral (principal); R50.9 Fever, unspecified | CPT/HCPCS: 71045; 93970 ==

== ENCOUNTER → 2025-09-11 21:22 | Outpatient (BNV) | payer MEDICARE, SELFPAY | PROVIDERS: Admitting Provider Physician Assistant; Emergency Provider Emergency Medicine; PCP Internal Medicine; Visit Provider Internal Medicine Cardiovascular Disease | DX: I48.91 Unspecified atrial fibrillation (principal); R65.10 Systemic inflammatory response syndrome (SIRS) of non-infectious origin without acute organ dysfunction; I50.9 Heart failure, unspecified | CPT/HCPCS: 93010; 99233 ==

== ENCOUNTER → 2025-09-11 21:22 | Outpatient (BNV) | payer MEDICARE, SELFPAY | PROVIDERS: Admitting Provider Physician Assistant; Emergency Provider Emergency Medicine; PCP Internal Medicine; Visit Provider Internal Medicine | DX: R50.9 Fever, unspecified (principal) | CPT/HCPCS: 99222 ==

== ENCOUNTER → 2025-09-11 21:22 | Outpatient (BNV) | payer MEDICARE, SELFPAY | PROVIDERS: Admitting Provider Physician Assistant; Emergency Provider Emergency Medicine; PCP Internal Medicine; Visit Provider Student in an Organized Health Care Education/Training Program | DX: I95.9 Hypotension, unspecified (principal); I48.91 Unspecified atrial fibrillation; R65.10 Systemic inflammatory response syndrome (SIRS) of non-infectious origin without acute organ dysfunction | CPT/HCPCS: 99223; 99233; 99499 ==

== ENCOUNTER 2025-09-19 12:11 | Outpatient (AMB) | payer MEDICARE, SELFPAY ==
--- NOTE | 2025-09-19 12:15 | HO.NEPHOV ---
Vital Signs 09/19/25 12:17 Height 6 ft 3 in Weight 197 lb BMI 24.6 BP 100/50 L Blood Pressure Location Lt brachial Position Sitting Pulse 57 Pulse Source Pulse Oximeter Pulse Oximetry (%) 94 Oxygen Delivery Method Room Air Intake Visit Reasons: [facility] HFU-Conf Remote Sensing Program Manager Required: No Accompanied by: Self / Same As Patient Allergies No Known Allergies (No Known Allergies*) Allergy (Verified 09/19/25 12:17) HPI Comments Details: 75-year-old man with a history of hypertension , coronary artery disease recentlypresented to the ER after an episode of syncope and weakness with loss of consciousness. 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 In the ER, he was found to be in new onset atrial fibrillation with rapid ventricular response however his heart rate has been below 100s. Initially his blood pressure was low with systolic blood pressure in the 70s. He was taking ARB/Diuretics. He was given 1 L of IV fluid which did help bring up his blood pressure systolically to the 90s. Chest x-ray negative for any acute abnormality, head CT negative for any trauma, cervical spine CT showing no acute fracture. He was found to have WILIAN which improved with supportive management. He was treated and D/Kulwinder but presented to hospital again with change in mental status, low BP and fever. Given his history of being around pets and long walks and a tick bite 2 weeks ago, patient was started on doxycycline and ceftriaxone. During this time, extensive workup has been done like echo, blood cultures, TTE , respiratory panel, CT abdomen pelvis, UA, HIV , prosthetic knee workup thus far negative. However patient spiked fevers of 103 and 104 and hence antibiotics had to be expanded to meropenem. BP this AM without medication was 142/82. His BP is going low when he takes spironolactone with Valsartan/HCTZ AM . He also takes Amlodipine at night. He is here for follow up. [facility] Medical History (Updated 09/19/25 @ 12:40 by Guicho Olivo MD) Fever of unknown origin Thrombocytopenia New onset a-fib Paroxysmal A-fib Trace mitral valve regurgitation Essential hypertension Type 2 diabetes mellitus with unspecified complications Bone spur of ankle Arthritis Back pain Sleep apnea with use of continuous positive airway pressure (CPAP) Hyperlipidemia Hypertension Surgical History History of total left knee replacement H/O varicose vein ligation Hx of laparoscopic gastric banding History of colonoscopy Family History Father No problems noted. Mother No problems noted. Social History Household Members: Spouse Housing: House Are you a primary rn critical care to a significant other at home: No Do you presently have visiting nurse or other home services: No Alcohol intake: current Alcohol intake frequency: holidays/special occasions only Comment: standby assist Patient Tobacco Use Status: Former Tobacco user Tobacco use type: Cigarette Years Smoked: 5 +/- e-Cigarette/Vaping Use: Former Use Second Hand Smoke Exposure: No service: No Review of Systems Const All systems reviewed & are unremarkable except as noted in HPI and below Physical Exam Vital Signs: Last Vital Signs BP 100/50 L 09/19/25 12:17 BMI result Body Mass Index 24.6 Const General: comfortable and no acute distress Orientation/consciousness: patient oriented x3 HEENT Head: Yes normocephalic Mouth: Normal oral and palatal mucosa present Eyes EOM: EOMs intact bilaterally Neck Neck: Yes supple Resp Auscultation: clear to auscultation bilaterally Cardio Jugular venous distension: no JVD Rate: regular rate GI Palpation (GI): Soft to palpation Auscultation: normal bowel sounds General: Yes no CVA tenderness Back/Spine/Pelvis Back: no CVA tenderness Skin General skin exam: no rashes or lesions noted Neuro General: patient oriented x3 and moves all extremities Extrem General: Yes no pedal edema Results Reviewed Nephrology Results: Hgb, (14.0-18.0) 10.5 g/dl L 09/14/25 WBC, (4.8-10.8) 9.7 X10*3/uL 09/14/25 Plt Count, (160-400) 204 X10*3/uL 09/14/25 Sodium, (135-145) 139 mmol/L 09/14/25 Potassium, (3.3-5.1) 3.9 mmol/L 09/14/25 Chloride, (96-108) 104 mmol/L 09/14/25 Carbon Dioxide, (22-29) 25 mmol/L 09/14/25 BUN, (9-16) 32 mg/dL H 09/14/25 Creatinine, (0.5-1.4) 1.24 mg/dL 09/14/25 Calcium, (8.4-10.2) 8.5 mg/dL Δ 09/14/25 Urine Protein, (Neg-Trace) 100 (2+) mg/dL H 09/13/25 Urine Creatinine 156.62 mg/dL 09/13/25 Assessment & Plan Assessment & Plan (1) WILIAN (acute kidney injury): Code(s): N17.9 - Acute kidney failure, unspecified Category: Medical (2) Essential hypertension: Code(s): I10 - Essential (primary) hypertension Category: Medical (3) Hypertension: Code(s): I10 - Essential (primary) hypertension Category: Medical Qualifiers: Hypertension type: primary hypertension Qualified Code(s): I10 - Essential (primary) hypertension Plan WILIAN due to tubular injury resolved UO good; Serum creatinine not checked recently; Still on Meropenem/Doxy Continue to ARB/Diuretic AM and switch Spironolactone PM with Amlodipine PM Labs soon (ordered); F/U 1 month Orders: Orders Creatinine Today I10 - Essential (primary) hypertension, N17.9 - Acute kidney failure, unspecified Electrolytes Today I10 - Essential (primary) hypertension, N17.9 - Acute kidney failure, unspecified Blood Urea Nitrogen Today I10 - Essential (primary) hypertension, N17.9 - Acute kidney failure, unspecified Protein Creatinine Ratio, Ur Today I10 - Essential (primary) hypertension, N17.9 - Acute kidney failure, unspecified Coding Level of Care Code Est Pt Level 4 (05699) Diagnoses WILIAN (acute kidney injury) N17.9 Essential hypertension I10 Primary hypertension I10 Hypertension type: primary hypertension
[2025-09-19 12:17] VITALS: BP 100/50; PULSE 57; O2SAT 94; BMI 24.6
== END 2025-09-19 12:44 | disposition home or self-care (01) ==
LOC: HO.HKA 12:12
PROVIDERS: PCP Internal Medicine; Visit Provider Internal Medicine Nephrology
DX: N17.9 Acute kidney failure, unspecified (principal); I10 Essential (primary) hypertension
CPT/HCPCS: 99214

== ENCOUNTER → 2025-09-19 12:11 | Outpatient (BNVA) | payer MEDICARE, SELFPAY | PROVIDERS: PCP Internal Medicine; Visit Provider Internal Medicine Nephrology | DX: N17.9 Acute kidney failure, unspecified (principal); I10 Essential (primary) hypertension; Z87.891 Personal history of nicotine dependence | CPT/HCPCS: 99212 ==

== ENCOUNTER 2025-09-22 12:00 | Outpatient (REF) | payer MEDICARE, SELFPAY ==
[2025-09-22 14:08] LABS: Anion Gap 14 (12-20); Blood Urea Nitrogen 32 mg/dL (9-16); Carbon Dioxide 24 mmol/L (22-29); Chloride 108 mmol/L (96-108); Estimated Glomerular Filt Rate > 60; Potassium 4.7 mmol/L (3.3-5.1); Sodium 141 mmol/L (135-145)
[2025-09-22 14:27] LABS: Protein/Creatinine Ratio, Ur 0.17 (<0.2); Total Protein Urine Random 17 mg/dL (<12)
== END 2025-09-22 12:01 | disposition home or self-care (01) ==
LOC: HO.10HDL 12:00
PROVIDERS: Visit Provider Internal Medicine Nephrology
DX: I10 Essential (primary) hypertension (principal); N17.9 Acute kidney failure, unspecified
CPT/HCPCS: 36415; 80051; 82565; 82570; 84156; 84520

== ENCOUNTER → 2025-09-25 08:30 | Outpatient (REF) | payer MEDICARE, SELFPAY | LOC: HO.CARD 08:30 | PROVIDERS: Visit Provider Internal Medicine | DX: I48.91 Unspecified atrial fibrillation (principal) | CPT/HCPCS: 93242 ==

== ENCOUNTER → 2025-09-25 08:33 | Outpatient (BNV) | payer MEDICARE, SELFPAY | PROVIDERS: Visit Provider Internal Medicine | DX: I49.3 Ventricular premature depolarization (principal); I48.91 Unspecified atrial fibrillation | CPT/HCPCS: 93244 ==

== ENCOUNTER 2025-10-01 15:17 | Outpatient (AMB) | payer MEDICARE, SELFPAY ==
[2025-10-01 15:23] VITALS: PULSE 60; O2SAT 98; BMI 25.9
--- NOTE | 2025-10-01 15:23 | MHC.OFFVIS ---
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 He still walks [employer] in [place]. [facility] Medical History (Updated 10/02/25 @ 22:36 by Ellen Demarco MD) Anaplasmosis Lyme carditis Lyme disease Fever of unknown origin Thrombocytopenia New onset a-fib Paroxysmal A-fib Trace mitral valve regurgitation Essential hypertension Type 2 diabetes mellitus with unspecified complications Bone spur of ankle Arthritis Back pain Sleep apnea with use of continuous positive airway pressure (CPAP) Hyperlipidemia Hypertension Surgical History History of total left knee replacement H/O varicose vein ligation Hx of laparoscopic gastric banding History of colonoscopy Family History Father No problems noted. Mother No problems noted. Social History Household Members: Spouse Housing: House Are you a primary wound care coordinator to a significant other at home: No Do you presently have visiting nurse or other home services: No Alcohol intake: current Alcohol intake frequency: holidays/special occasions only Comment: standby assist Patient Tobacco Use Status: Former Tobacco user Tobacco use type: Cigarette Years Smoked: 5 +/- e-Cigarette/Vaping Use: Former Use Second Hand Smoke Exposure: No service: No Review of Systems Const All systems reviewed & are unremarkable except as noted in HPI and below Physical Exam Vital Signs: Last Vital Signs Pulse 60 10/01/25 15:23 Pulse Ox 98 10/01/25 15:23 Oxygen Delivery Method Room Air 10/01/25 15:23 BMI result Body Mass Index 25.9 Const General: cooperative Orientation/consciousness: patient oriented x3 HEENT Head: Yes normal to inspection Mouth: Normal oral and palatal mucosa present Eyes General: appearance normal, both eyes and all related structures Pupils: Equal, round and reactive pupils present Resp Effort & Inspection: normal respiratory effort Cardio Rate: regular rate Rhythm: regular rhythm GI Palpation (GI): Soft to palpation and nontender General: Yes no CVA tenderness Back/Spine/Pelvis Back: no CVA tenderness Skin General skin exam: no rashes or lesions noted Neuro General: patient oriented x3 Cranial nerves: Yes CN's II-XII intact bilaterally and Yes Equal, round and reactive pupils present Extrem General: Yes normal to inspection Psych Appearance: grossly normal Assessment & Plan Assessment & Plan (1) Lyme disease: Code(s): A69.20 - Lyme disease, unspecified Category: Medical Plan: He has finished therapy. Talk today spent 30 minutes talking about protection including protective clothing and permethrin for him and dog and 200 mg po Doxycycline po which he has at home after imbedded tick. (2) Lyme carditis: Code(s): A69.29 - Other conditions associated with Lyme disease Category: Medical Plan: as above (3) Anaplasmosis: Code(s): A77.49 - Other ehrlichiosis Category: Medical Plan: as above Coding Level of Care Code Est Pt Level 3 (59719) Diagnoses Lyme disease A69.20 Lyme carditis A69.29 Anaplasmosis A77.49
--- OUTSIDE RECORDS SUMMARY | 2025-10-01 17:43 | XMS_ITS | Clinical Summary ---
Author Organization [facility] Address [address] [place] [address] Phone Care Team Providers Care Tractor Mechanic Helper Name Role Phone Kevin Mtz [...] of 2 - PCV) 02/03/1968 Influenza Vaccine (#1) 2025 Hepatitis B Vaccine Aged Out No longe r eligible based on patient's age to complete this topic Insurance [facility] Care Teams Tractor Mechanic Helper Relationship Specialty Start Date End Date Kevin Mtz MD [address] [place] [address] [phone] [place]GA PCP - General 11/16/20
--- OUTSIDE RECORDS SUMMARY | 2025-10-01 17:43 | XMS_ITS | Encounter Summary ---
Author Organization [facility] Address [address] [place] [address] Phone Care Team Providers Care Fashion Consultant Sales Name Role Phone Kevin Mtz MD Primary Care Provider Encounter Details Date Type Department Care Team (Late st Contact Info) Description 04/25/2023 Ancillary Orders [address] [address] Alice Ahumada PA-C [address] [place] [address] Orthopedics & Sports Medicine, [place] [address] [email or web address] Left knee pain, unspecified chronicity Social History [...] chronicity documented in this encounter Care Teams Fashion Consultant Sales Relationship Specialty Start Date End Date Kevin Mtz MD [address] [place] [address] [place] [address] PCP - General Internal Medicine 12/31/20 documented as of this encounter Additional Source Comments The information contained in this document represents components of the legal health record. It is not the complete legal health record.[facility]
--- OUTSIDE RECORDS SUMMARY | 2025-10-01 17:43 | XMS_ITS | Clinical Summary ---
Author Organization [facility] Address [email or web address] [place] [address] Phone Care Team Providers Care Director Craft Center Name Role Phone Kevin Mtz MD Primary [...] this topic Medical Devices Implanted Type Area Business Analysis Specialist Device Identifier Shelf Expiration Date Model / Serial / Lot Bone Cement Antibiotic Refobacin - [id number] Implanted:Qty: 1 on 05/10/2023 by Alex Moralez MD at [facility] Left: Knee [employer] 06/05/2025 [id number] / / [id number] Bone Cement Antibiotic Refobacin - [id number] Implanted:Qty: 1 on 05/10/2023 by Alex Moralez MD at [facility] Left: Knee [employer] 06/05/2025 [id number] / / [id number] Knee Implant Sz 12 Component Femoral Persona Ps [place] Cemented Std Lt - [id number] Implanted:Qty: 1 on 05/10/2023 by Alex Moralez MD at [facility] Left: Knee [employer] 04/23/2032 [id number] / / [id number] Knee Patella 10.0x41mm Persona All Polyethylene Cemented Conventional - [id number] Implanted:Qty: 1 on 05/10/2023 by Alex Moralez MD at [facility] Left: Knee [employer] 01/27/2027 [id number] / / [id number] Knee Implant 5.0deg Component Tibial Persona Titanium Stemmed Cemented Lt Size H - [id number] Implanted:Qty: 1 on 05/10/2023 by Alex Moralez MD at [facility] Left: Knee [employer] 09/06/2032 [id number] / / [id number] Knee Insert 11mm L 10 12 Component Surface Persona Ps Polyethylene Fixed Conventional Lt Fem Tib Gh - [id number] Implanted:Qty: 1 on 05/10/2023 by Alex Moralez MD at [facility] Left: Knee [employer] 09/12/2027 [id number] / / [id number] Procedures Procedure Name Priority Date/Time Associated Diagnosis Comments BASIC METABOLIC PANEL (BMP) Routine 03/24/2023 9:12 AM EDT Primary localized osteoarthrosis of right lower leg from Last 3 Months or Most Recently Relevant to Health Maintenance Results * (ABNORMAL) Basic metabolic panel (03/24/2023 9:12 AM EDT) SODIUM 141 133 - 146 mmol/L [facility] CHLORIDE 102 96 - 108 mmol/L [facility] POTASSIUM 4.5 3.3 - 5.1 mmol/L [facility] CO2 28 21 - 35 mmol/L [facility] BUN 17 6 - 19 mg/dL [facility] CREATININE 0.90 0.5 - 1.5 mg/dL [facility] GLUCOSE 136(H) 70 - 99 mg/dL [facility] CALCIUM 10.2 8.4 - 10.3 mg/dL [facility] EGFR 90 >59 mL/min/1.7 3m2 [facility] Comment:Estimated glomerular filtration rate calculated using the CKD-EPI refit equation. ANION GAP 16 10 - 20 mmol/L [facility] Blood 03/24/2023 9:12 AM EDT 03/24/2023 9:19 AM EDT us Alex Moralez MD LAB BLOOD BKR ORDERABLES Saige edward Result [facility] [address] [place] [address] from Last 3 Months or Most Recently Relevant to Health Maintenance [place] [address] [place] [address] MEDICARE HMO REPLACEMENT MEDICARE HMO REPLACEMENT MEDICARE HMO REPLACEMENT MEDICARE HMO REPLACEMENT MEDICARE HMO REPLACEMENT [facility] MEDICARE HMO REPLACEMENT [facility] [place] MEDICARE HMO REPLACEMENT MEDICARE HMO REPLACEMENT [facility] [place] MEDICARE HMO REPLACEMENT Care Teams Director Craft Center Relationship Specialty Start Date End Date Kevin Mtz MD [address] [place] [address] Dr [address]EN [address] [place] [address] [place] [address] PCP - General Internal Medicine 12/31/20 Additional Source Comments The information contained in this document represents components of the legal health record. It is not the complete legal health record.[facility]
--- OUTSIDE RECORDS SUMMARY | 2025-10-01 17:43 | XMS_ITS | Encounter Summary ---
Author Organization [facility] Address [address] [place] [address] [place] [address] Phone Care Team Providers Care Recreational Specialist Name Role Phone Kevin Mtz MD Primary Care Provider Encounter Details Date Type Department Care Team ([facility] st Contact Info) Description 04/25/2023 Ancillary Orders [facility] Orthopedics & Sports Medicine [address] [place] [address] Alice Ahumada PA-C [address] [place] [address] Orthopedics & Sports Medicine, [place] [address] [email or web address] Social History Tobacco Use Types Packs/Day Years [...] on filedocumented in this encounter Care Teams Recreational Specialist Relationship Specialty Start Date End Date Kevin Mtz MD [address] [place] [address] [place] [address] PCP - General Internal Medicine 12/31/20 documented as of this encounter Additional Source Comments The information contained in this document represents components of the legal health record. It is not the complete legal health record.[facility]
--- OUTSIDE RECORDS SUMMARY | 2025-10-01 17:43 | XMS_ITS | Encounter Summary ---
Author Organization [facility] Address [address] [place] [address] Phone Care Team Providers Care Salon Designer Name Role Phone Kevin Mtz MD Primary Care Provider Encounter Details Date Type Department Care Team (Late st Contact Info) Description 08/12/2022 Procedure Pass [address] [place] [address] Social History Tobacco Use Types Packs/Day Years [...] on filedocumented in this encounter Care Teams Salon Designer Relationship Specialty Start Date End Date Kevin Mtz MD [address] [place] [address] [place] [address] PCP - General Internal Medicine 12/31/20 documented as of this encounter Additional Source Comments The information contained in this document represents components of the legal health record. It is not the complete legal health record.[facility]
--- OUTSIDE RECORDS SUMMARY | 2025-10-01 17:43 | XMS_ITS | Clinical Summary ---
Author Organization [facility] Address [address] [place] [address] Care Team Providers Care Mold Cutting Machine Operator Name Role Phone Unavailable Primary Care Provider [...]
--- OUTSIDE RECORDS SUMMARY | 2025-10-01 17:43 | XMS_ITS | Encounter Summary ---
Author Organization [facility] Address [address] [facility] [address] [place] [address] Phone Care Team Providers Care Bankruptcy Processor Name Role Phone Kevin Mtz MD Primary Care Provider Encounter Details Date Type Department Care Team (Late st Contact Info) Description 05/10/2023 Procedure Pass [place] Admitting Dept - Virtual Department [address] [place] [address] Social History Tobacco Use Types Packs/Day Years [...] on filedocumented in this encounter Care Teams Bankruptcy Processor Relationship Specialty Start Date End Date Kevin Mtz MD [address] [place] [address] [place] [address] PCP - General Internal Medicine 12/31/20 documented as of this encounter Additional Source Comments The information contained in this document represents components of the legal health record. It is not the complete legal health record.[facility]
== END 2025-10-01 15:53 | disposition home or self-care (01) ==
LOC: HO.HID 15:17
PROVIDERS: Visit Provider Internal Medicine
DX: A69.20 Lyme disease, unspecified (principal); A69.29 Other conditions associated with Lyme disease; A77.49 Other ehrlichiosis
CPT/HCPCS: 99213

== ENCOUNTER → 2025-10-01 15:17 | Outpatient (BNVA) | payer MEDICARE, SELFPAY | PROVIDERS: Visit Provider Internal Medicine | DX: A77.49 Other ehrlichiosis (principal); A69.29 Other conditions associated with Lyme disease | CPT/HCPCS: 99212 ==

== ENCOUNTER 2025-10-06 10:43 | Outpatient (REF) | payer MEDICARE, SELFPAY ==
[2025-10-06 10:46] LABS: MANUAL DIFF FLAG NO
[2025-10-06 11:13] LABS: Hematocrit 36.4 % (42.0-52.0); Hemoglobin 11.3 g/dl (14.0-18.0); Imm Gran Abs Auto 0.01 X10*3/uL (0.00-0.03); Imm Gran Pct Auto 0.2 % (0.0-0.4); Lymphocytes Absolute Auto 2.3 X10*3/uL (1.2-4.9); Mean Corpuscular HGB Conc 31.0 g/dl (31.0-36.0); Mean Corpuscular Hemoglobin 29.0 pg (27.0-33.0); Mean Corpuscular Volume 93.3 fL (80.0-98.0); NRBC Abs Auto 0.000 X10*3/uL (0.0-0.012); NRBC Pct Auto 0.0 /100WBC (0.0-0.2); Platelet Count 232 X10*3/uL (160-400); Red Blood Count 3.90 X10*6/uL (4.60-5.80); White Blood Count 5.7 X10*3/uL (4.8-10.8)
[2025-10-06 11:17] LABS: Alanine Aminotransferase 23 U/L (0-40); Albumin Level 4.5 g/dL (3.5-5.0); Alkaline Phosphatase 79 U/L (39-117); Anion Gap 12 (12-20); Aspartate Amino Transferase 26 U/L (5-37); Blood Urea Nitrogen 26 mg/dL (9-16); Calcium 9.5 mg/dL (8.4-10.2); Carbon Dioxide 25 mmol/L (22-29); Chloride 110 mmol/L (96-108); Estimated Glomerular Filt Rate 52; Iron 94 mcg/dL (45-160); Percent Iron Saturation 32 % (15-50); Potassium 5.0 mmol/L (3.3-5.1); Sodium 142 mmol/L (135-145); Total Iron Binding Capacity 293 mcg/dL (228-428); Total Protein 7.9 g/dL (6.5-8.0); Unsaturated Iron Binding 199 ug/dL
[2025-10-06 11:21] LABS: Appearance Urine Clear; Glucose Urine UA Negative (Negative); PH 5.5 (5.0-9.0); Specific Gravity - Urine 1.020 (1.005-1.025)
[2025-10-06 12:15] LABS: Folate 15.7 ng/mL (> or = 4.0); Vitamin B12 899 pg/mL (200-900)
[2025-10-06 12:19] LABS: Microalbum/Creatinine Ratio Ur 47.3 ug/mg cr (<30)
--- OUTSIDE RECORDS SUMMARY | 2025-10-06 13:42 | XMS_ITS | Clinical Summary ---
Author Organization [facility] Address [address] [place] [address] Care Team Providers Care Loan Services Professional Name Role Phone Unavailable Primary Care Provider [...]
--- OUTSIDE RECORDS SUMMARY | 2025-10-06 13:42 | XMS_ITS | Encounter Summary ---
Author Organization [facility] Address [address] [place] [address] Phone Care Team Providers Care Senior Technical Project Manager Name Role Phone Kevin Mtz MD Primary Care Provider Encounter Details Date Type Department Care Team (Late st Contact Info) Description 08/12/2022 Procedure Pass [address] [place] [address] Social History Tobacco Use Types Packs/Day Years [...] on filedocumented in this encounter Care Teams Senior Technical Project Manager Relationship Specialty Start Date End Date Kevin Mtz MD [address] [place] [address] [place] [address] PCP - General Internal Medicine 12/31/20 documented as of this encounter Additional Source Comments The information contained in this document represents components of the legal health record. It is not the complete legal health record.[facility]
--- OUTSIDE RECORDS SUMMARY | 2025-10-06 13:42 | XMS_ITS | Encounter Summary ---
Author Organization [facility] Address [address] [place] [phone] Phone Care Team Providers Care Nuclear Medicine Chief Technologist Name Role Phone Kevin Mtz MD Primary Care Provider Encounter Details Date Type Department Care Team (Late st Contact Info) Description 04/25/2023 Ancillary Orders [address] [address] Alice Ahumada PA-C [address] [place] [address] Orthopedics & Sports Medicine, [place] [address] [email or web address] Left knee pain, unspecified chronicity Social History [...] chronicity documented in this encounter Care Teams Nuclear Medicine Chief Technologist Relationship Specialty Start Date End Date Kevin Mtz MD [address] [place] [address] [place] [address] PCP - General Internal Medicine 12/31/20 documented as of this encounter Additional Source Comments The information contained in this document represents components of the legal health record. It is not the complete legal health record.[facility]
--- OUTSIDE RECORDS SUMMARY | 2025-10-06 13:42 | XMS_ITS | Encounter Summary ---
Author Organization [facility] Address [address] [facility] [address] [place] [address] Phone Care Team Providers Care Power Generation Equipment Repairer Name Role Phone Kevin Mtz MD Primary Care Provider Encounter Details Date Type Department Care Team (Late st Contact Info) Description 05/10/2023 Procedure Pass OR Admitting Dept - Virtual Department [address] [place] [address] Social History Tobacco Use Types Packs/Day Years [...] on filedocumented in this encounter Care Teams Power Generation Equipment Repairer Relationship Specialty Start Date End Date Kevin Mtz MD [address] [place] [address] [place] [address] PCP - General Internal Medicine 12/31/20 documented as of this encounter Additional Source Comments The information contained in this document represents components of the legal health record. It is not the complete legal health record.[facility]
--- OUTSIDE RECORDS SUMMARY | 2025-10-06 13:42 | XMS_ITS | Clinical Summary ---
Author Organization [facility] Address [address] [place] [address] Phone Care Team Providers Care Drapery Hand Name Role Phone Kevin Mtz MD [...] this topic Medical Devices Implanted Type Area Bakeshop Cleaner Device Identifier Shelf Expiration Date Model / Serial / Lot Bone Cement Antibiotic Refobacin - [id number] Implanted:Qty: 1 on 05/10/2023 by Alex Moralez MD at [facility] Left: Knee [employer] 06/05/2025 [id number] / / [id number] Bone Cement Antibiotic Refobacin - [id number] Implanted:Qty: 1 on 05/10/2023 by Alex Moralez MD at [facility] Left: Knee [employer] 06/05/2025 [id number] / / [id number] Knee Implant Sz 12 Component Femoral Persona Ps Merna Cemented Std Lt - [id number] Implanted:Qty: 1 on 05/10/2023 by Alex Moralez MD at [facility] Left: Knee [employer] 04/23/2032 [id number] / / [id number] Knee Patella 10.0x41mm Persona All Polyethylene Cemented Conventional - [id number] Implanted:Qty: 1 on 05/10/2023 by Alex Moralez MD at [facility] Left: Knee [employer] 01/27/2027 [id number] / / [id number] Knee Implant 5.0deg Component Tibial Persona Titanium Stemmed Cemented Lt Size H - [id number] Implanted:Qty: 1 on 05/10/2023 by Alex Moralez MD at [facility] Left: Knee [employer] 09/06/2032 [id number] / / [id number] Knee Insert 11mm L 10 12 Component Surface Persona Ps Polyethylene Fixed Conventional Lt Fem Tib Gh - [id number] Implanted:Qty: 1 on 05/10/2023 by Alex Moralez MD at [facility] Left: Knee [employer] 09/12/2027 [id number] / / [id number] Procedures Procedure Name Priority Date/Time Associated Diagnosis Comments BASIC METABOLIC PANEL (BMP) Routine 03/24/2023 9:12 AM EDT Primary localized osteoarthrosis of right lower leg from Last 3 Months or Most Recently Relevant to Health Maintenance Results * (ABNORMAL) Basic metabolic panel (03/24/2023 9:12 AM EDT) SODIUM 141 133 - 146 mmol/L [facility] CHLORIDE 102 96 - 108 mmol/L [facility] POTASSIUM 4.5 3.3 - 5.1 mmol/L [facility] CO2 28 21 - 35 mmol/L [facility] BUN 17 6 - 19 mg/dL [facility] CREATININE 0.90 0.5 - 1.5 mg/dL [facility] GLUCOSE 136(H) 70 - 99 mg/dL [facility] CALCIUM 10.2 8.4 - 10.3 mg/dL [facility] EGFR 90 >59 mL/min/1.7 3m2 [facility] Comment:Estimated glomerular filtration rate calculated using the CKD-EPI refit equation. ANION GAP 16 10 - 20 mmol/L [facility] Blood 03/24/2023 9:12 AM EDT 03/24/2023 9:19 AM EDT us Alex Moralez MD LAB BLOOD BKR ORDERABLES Saige edward Result [facility] [address] [place] [address] from Last 3 Months or Most Recently Relevant to Health Maintenance [place] [address] [place] [address] MEDICARE HMO REPLACEMENT MEDICARE HMO REPLACEMENT MEDICARE HMO REPLACEMENT MEDICARE HMO REPLACEMENT MEDICARE HMO REPLACEMENT [facility] [place] [facility]IC[facility] HMO REPLACEMENT [facility] [place] MEDICARE HMO REPLACEMENT MEDICARE HMO REPLACEMENT [facility] [place] MEDICARE HMO REPLACEMENT Care Teams Drapery Hand Relationship Specialty Start Date End Date Kevin Mtz MD [address] [place] [address] Dr KITCHEN [address] [place] [address] [place] [address] PCP - General Internal Medicine 12/31/20 Additional Source Comments The information contained in this document represents components of the legal health record. It is not the complete legal health record.[facility]
--- OUTSIDE RECORDS SUMMARY | 2025-10-06 13:42 | XMS_ITS | Clinical Summary ---
Author Organization [facility] Address [address] [place] [address] Phone Care Team Providers Care Investment Specialist Name Role Phone Kevin Mtz MD Primary Care Provider [phone] Allergies No known active allergies Medications amLODIPine [...] patient's age to complete this topic Insurance [facility] Care Teams Investment Specialist Relationship Specialty Start Date End Date Kevin Mtz MD [address] [place] [address] [address] PCP - General 11/16/20
--- OUTSIDE RECORDS SUMMARY | 2025-10-06 13:42 | XMS_ITS | Encounter Summary ---
Author Organization [facility] Address [address] [place] [address] [place] [phone] Phone Care Team Providers Care Service Center Coordinator Name Role Phone Kevin Mtz MD Primary Care Provider Encounter Details Date Type Department Care Team ([facility] st Contact Info) Description 04/25/2023 Ancillary Orders [facility] Orthopedics & Sports Medicine [address] [place] [address] Alice Ahumada PA-C [address] [place] [address] Orthopedics & Sports Medicine, [facility] [place] [address] [email or web address] Social History Tobacco Use Types Packs/Day Years [...] on filedocumented in this encounter Care Teams Service Center Coordinator Relationship Specialty Start Date End Date Kevin Mtz MD [address] [place] [address] [place] [address] PCP - General Internal Medicine 12/31/20 documented as of this encounter Additional Source Comments The information contained in this document represents components of the legal health record. It is not the complete legal health record.[facility]
== END 2025-10-06 10:44 | disposition home or self-care (01) ==
LOC: HO.LNP 10:43
PROVIDERS: Visit Provider Internal Medicine
DX: E11.40 Type 2 diabetes mellitus with diabetic neuropathy, unspecified (principal); A69.20 Lyme disease, unspecified; R31.9 Hematuria, unspecified; D64.9 Anemia, unspecified
CPT/HCPCS: 80053; 81001; 82043; 82570; 82607; 82746; 83036; 83540; 85025

== ENCOUNTER 2025-10-17 11:05 | Outpatient (REF) | payer MEDICARE, SELFPAY ==
[2025-10-17 11:30] LABS: Appearance Urine Clear; Glucose Urine UA Negative (Negative); PH 6.0 (5.0-9.0); Specific Gravity - Urine 1.015 (1.005-1.025)
== END 2025-10-17 11:06 | disposition home or self-care (01) ==
LOC: HO.LNP 11:05
PROVIDERS: Visit Provider Internal Medicine
DX: R31.9 Hematuria, unspecified (principal)
CPT/HCPCS: 81001

== ENCOUNTER 2025-10-29 11:27 | Outpatient (REF) | payer MEDICARE, SELFPAY ==
--- OUTSIDE RECORDS SUMMARY | 2025-09-22 06:55 | XMS_ITS ---
Author Organization Kevin Mtz MD Address [address] [place] [phone] Care Team Providers Care Sign Painter Apprentice Name Role Phone Bibi Kevin Primary Care Provider REASON FOR VISIT CXR Encounters Encounter Location Date Provider Diagnosis Kevin Mtz MD [address] [place] [phone] 09/22/2025 Kevin Mtz Pulmonary embolism I26.99 Assessments Encounter Date Diagnosis (ICD Code) Assessment Notes Treatment Notes Treatment Clinical Notes Section Notes 09/22/2025 Pulmonary embolism (ICD-10 - I26.99) Mailed to patient to be done 1 month Plan Of Treatment Treatment Notes Assessment Notes Pulmonary embolism Mailed to patient to be done 1 month Pending Test Test Name Order Date XR chest 2V 09/22/2025 Next Appt Details Provider Name:Kevin ibarra, 02/10/2026 07:30:00 AM, [address], Suite [facility], [place], [place], [phone], Provider Name:Kevin Hernandez ier, 02/17/2026 10:00:00 AM, [address], [address], [place], [phone], Provider Name:Kevin Hernandez ier, 08/03/2026 07:30:00 AM, [address], [address], [place], [phone], Provider Name:Kevin Hernandez ier, 08/10/2026 10:30:00 AM, [address], [address], [place], [place], [phone], Progress Notes * Rosalba CLIFFORDOB:1950 ( 75 yo M)Acc No.[id number]:09/22/2025 Patient: Nam LEHMAN :1950 A ge:75 Y S ex:Male Address:[address] [place] [address], [phone] Subjective: * Chief Complaints: * C XR * Medical History: * Surgical History: * Hospitalization/Major Diagno stic Procedure: * Medications: Objective: * Vitals: * Physical Examination: Assessment: * Assessment: 1. P ulmonary embolism - I26.99 Plan: * Treatment: * Procedure Codes: * true * Date: Generated for Van shanks/Hayes/Jennifersmitting on: 12/30/2024 11:35 AM EST
--- OUTSIDE RECORDS SUMMARY | 2025-09-29 06:10 | XMS_ITS ---
Author Organization Kevin Mtz MD Address [address] [place] [phone] Care Team Providers Care Nutrition Services Manager Name Role Phone Bibi Kevin Primary Care Provider REASON FOR VISIT RF Eliquis and Metoprolol Medications Medication SIG (Take, Route, Frequency, Duration) Notes Start Date End Date Status Metoprolol Succinate 25 MG 1 capsule Ora lly Once a day for 90 days Active Eliquis 5 MG as directed Orally t wice a day for 90 days Active Encounters Encounter Location Date Provider Diagnosis Kevin Mtz MD [address] [place] [phone] 09/29/2025 Kevin Mtz Plan Of Treatment Medication Medication Name Sig Start Date Stop Date Notes Metoprolol Succinate 25 MG 1 capsule Ora lly Once a day for 90 days Eliquis 5 MG as directed Orally t wice a day for 90 days Next Appt Details Provider Name:Kevin ibarra, 02/10/2026 07:30:00 AM, [address], [address], [place], [phone], Provider Name:Kevin Hernandez ier, 02/17/2026 10:00:00 AM, [address], [address], [place], [phone], Provider Name:Kevin Hernandez ier, 08/03/2026 07:30:00 AM, [address], [address], [place], [place], [phone], Provider Name:Kevin Hernandez ier, 08/10/2026 10:30:00 AM, [address] [place] [address], Suite [facility], [place], [place], [phone], Progress Notes * Rosalba CLIFFORDOB:1950 ( 75 yo M)Acc No.[id number]:09/29/2025 Patient: Nam LEHMAN :1950 A ge:75 Y S ex:Male Address:[address] [place] [address], [place], [address] * Refills Refill Metoprolol Succinate Capsule ER 24 Hour Sprinkle, 25 MG, Orally, 90 Capsule, 1 capsule, Once a day, 90 days, Refills=3 Refill Eliquis Tablet, 5 MG, Orally, 180, as directed, twice a day, 90 days, Refills=0 * true * Date: Generated for Van shanks/Hayes/Nenaitting on: 12/30/2024 11:35 AM EST
--- OUTSIDE RECORDS SUMMARY | 2025-10-06 02:15 | XMS_ITS ---
Author Organization Kevin Mtz MD Address [address] [place], [place] [id number] Care Team Providers Care Vault Cashier Name Role Phone Bibi Kevin Primary Care Provider [phone] Results Component Value Reference Range Notes Complete Blood Count Auto Di ff Reviewed date:10/06/2025 05:35:04 PM Interpretation: Performing Lab:[facility], [address] [place] [phone] Notes/Report: White Blood Count 5.7 4.8-10.8 X10*3/uL Red Blood Count 3.90 4.60-5.80 X10*6/uL Hemoglobin 11.3 14.0-18.0 g/dl Hematocrit 36.4 42.0-52.0 % Mean Corpuscular Volume 93.3 80.0-98.0 fL Mean Corpuscular Hemoglobin 29.0 27.0-33.0 pg Mean Corpuscular HGB Conc 31.0 31.0-36.0 g/dl Red Cell Distribution Width 16.8 11.0-16.0 % Platelet Count 232 160-400 X10*3/uL Mean Platelet Volume 10.9 9.4-12.4 fL Neutrophils Percent Auto 47.0 45-73 % Imm Gran Pct Auto 0.2 0.0-0.4 % Lymphocytes Percent Auto 39.9 20-40 % Monocytes Percent Auto 7.6 2-11 % Eosinophils Percent Auto 4.8 0-4 % Basophils Percent Auto 0.5 0-2 % NRBC Pct Auto 0.0 0.0-0.2 /100WBC Neutrophils Absolute Auto 2.7 2.0-8.3 x10*3/u L Imm Gran Abs Auto 0.01 0.00-0.03 X10*3/uL Lymphocytes Absolute Auto 2.3 1.2-4.9 X10*3/u L Monocytes Absolute Auto 0.4 0.1-1.2 X10*3/uL Eosinophils Absolute Auto 0.3 0.0-0.4 X10*3/u L Basophils Absolute Auto 0.0 0.0-0.2 X10*3/uL NRBC Abs Auto 0.000 0.0-0.012 X10*3/uL Comprehensive Navarro. Panel Fa st Reviewed date:10/06/2025 05:33:47 PM Interpretation: Performing Lab:[facility], [address] [place] [phone] Notes/Report: Sodium 142 135-145 mmol/L Potassium 5.0 3.3-5.1 mmol/L Slight Hemoly sis.Interpret result with caution. Chloride 110 96-108 mmol/L Carbon Dioxide 25 22-29 mmol/L Anion Gap 12 12-20 Blood Urea Nitrogen 26 9-16 mg/dL Creatinine 1.34 0.5-1.4 mg/dL Estimated Glomerular Filt Rate 52 Chronic Kidney Disease: Estimated GFR < 60 mL/min/1.73m2 Severe Kidney Disease: Estimated GFR < 15 mL/min/1.73m2 Glucose Fasting 124 60-99 mg/dL A fasting glucose from 100-125 mg/dl is considered impaired (pre-diabetes). Calcium 9.5 8.4-10.2 mg/dL Bilirubin Total 0.6 0.0-1.0 mg/dL Aspartate Amino Transferase 26 5-37 U/L Slight Hemolysis.Interpret result with caution. Alanine Aminotransferase 23 0-40 U/L Total Protein 7.9 6.5-8.0 g/dL Albumin Level 4.5 3.5-5.0 g/dL Alkaline Phosphatase 79 39-117 U/L IRON PROFILE Reviewed date:10/06/2025 05:20:55 PM Interpretation: Performing Lab:[facility], [address] [place] [phone] Notes/Report: Iron 94 45-160 mcg/dL Slight Hemolys is.Interpret result with caution. Total Iron Binding Capacity 293 228-428 mcg/d L Percent Iron Saturation 32 15-50 % Unsaturated Iron Binding 199 Vitamin B12 and Folate Reviewed date:10/06/2025 05:20:45 PM Interpretation: Performing Lab:[facility], [address] [place] [phone] Notes/Report: Vitamin B12 899 200-900 pg/mL NORMAL 200-900 PG/ML INDETERMINATE 160-199 PG/ML DEFICIENT < 160 PG/ML Folate 15.7 > or = 4.0 ng/mL Reference Values: > or = 4.0 ng/mL < 4.0 ng/mL suggests folate deficiency Methotrexate, aminopterin and folinic acid (leucovorin) are chemotherapeutic agents whose molecular structures are similar to folate; therefore, the Bottle Washer folate assay cannot be used for patients using these drugs. Microalbumin, Random Reviewed date:10/06/2025 01:00:31 PM Interpretation: Performing Lab:[facility], [address] [place] [phone] Notes/Report: Creatinine Urine 75.98 Microalbumin Urine 36.0 Microalbum/Creatinine Ratio Ur 47.3 <30 ug/mg cr Albumin/Creatinine Ratio Reference Ranges: Normal: < 30 ug/mg creatinine Microalbuminuria: 30 - 300 ug/mg creatinine Clinical Albuminuria: > 300 ug/mg creatinine Hemoglobin A1c Reviewed date:10/06/2025 05:20:37 PM Interpretation: Performing Lab:[facility], [address] [place] [phone] Notes/Report: Hemoglobin A1c % 6.3 <6.0 % Hemoglobin A1C Reference Range Adults: 4.8 - 6.0 % Non diabetic: < 6.0 % Goal: < 7.0 % Additional Action Suggested: > 8.0 % Note: Hemoglobin A1c results are invalid for patients with abnormal amounts of HbF. Blood transfusions may impact the HbA1c concentration in the patient sample. Estimated Average Glucose 134 eAG = Estimated average glucose which is %A1C expressed as average glucose, using the formula of the [id number] Average Glucose study (ADAG), Diabetes Care, Vol.31,#8, Jun. 2007 UA ClnCatch+Micro w/rflx Cul t Reviewed date:10/06/2025 05:37:13 PM Interpretation: Performing Lab:[facility], [address] [place] [phone] Notes/Report: Urine, Clean Catch Color Urine Yellow Appearance Urine Clear PH 5.5 5.0-9.0 Glucose Urine UA Negative Negative mg/dL Urine Blood Negative Negative Specific Wilmot - Urine 1.020 1.005-1.025 Urine Protein Negative Neg-Trace mg/dL Urine Ketones Negative Negative mg/dL Nitrite Urine Negative Negative Leukocyte Esterase Urine Negative Negative RBC Urine 0-2 0-2 /HPF WBC Urine 0-5 0-5 /HPF Squamous Epithelial Cell Urine 0-2 0-2 /HPF Bacteria Urine None Seen None Seen Hyaline Casts Urine 0-2 0-2 /LPF REASON FOR VISIT Fasting comp meta panel and CBC with diff Encounters Encounter Location Date Provider Diagnosis Kevin Mtz MD [address] [place] [address] [place] [phone] 10/06/2025 Kevin Mtz Lyme disease A69.20 ; Hematuria R31.9 ; Anemia D64.9 and Type 2 diabetes, controlled, 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 Assessments Encounter Date Diagnosis (ICD Code) Assessment Notes Treatment Notes Treatment Clinical Notes Section Notes 10/06/2025 Lyme disease (ICD-10 - A69.20) 10/06/2025 Hematuria (ICD-10 - R31.9) 10/06/2025 Anemia (ICD-10 - D64.9) 10/06/2025 Type 2 diabetes, controlled, with neuropathy (ICD-10 - E11.40) Plan Of Treatment Next Appt Details Provider Name:Kevin ibarra, 02/10/2026 07:30:00 AM, [address] [place] [address], [address], [place], [place], [phone], Provider Name:Kevin ibarra, 02/17/2026 10:00:00 AM, [address], [address], [place], [place], [phone], Provider Name:Kevin Hernandez ier, 08/03/2026 07:30:00 AM, [address], [address], [place], [place], [phone], Provider Name:Kevin Hernandez ier, 08/10/2026 10:30:00 AM, [address], [address], [place], [place], [phone], Progress Notes * Lissette CLIFFORDilDOB:1950 ( 75 yo M)Acc No.[id number]:10/06/2025 Progress Note Patient: Nam LEHMAN Provider: Geo Mtz MD :1950 A ge:75 Y S ex:Male Date:10/06/2025 Address:[address] [place], [place] [id number] Subjective: * Chief Complaints: * 1 . Fasting comp meta panel and CBC with diff. * Medical History: Objective: * Vitals: Assessment: * Assessment: 1. L yme disease - A69.20 (Primary) 2 . H ematuria - R31.9 3 . A nemia - D64.9 4 . T ype 2 diabetes, controlled, with neuropathy - E11.40 Plan: * Treatment: 2. H ematuria L AB: IRON PROFILE (Collection Date & Time - 10/06/2025 07:15 AM) L AB: Vitamin B12 and Folate (Collection Date & Time - 10/06/2025 07:15 AM) L AB: UA ClnCatch+Micro w/rflx Cult (Collection Date & Time - 10/06/2025 07:15 AM) 3. A nemia L AB: IRON PROFILE (Collection Date & Time - 10/06/2025 07:15 AM) L AB: Vitamin B12 and Folate (Collection Date & Time - 10/06/2025 07:15 AM) 4. T ype 2 diabetes, controlled, with neuropathy L AB: Microalbumin, Random (Collection Date & Time - 10/06/2025 07:15 AM) L AB: Hemoglobin A1c (Collection Date & Time - 10/06/2025 07:15 AM) * Procedure Codes: 3 6415 VENIPUNCT, ROUTINE* * * The named appointment provid er may or may not be the originator of this progress note, and it is not deemed complete until electronically signed by the appointment provider. Sign off status: Pending * Provider: Geo Mtz MD Date: 1 12/07/2024 Generated for Van shanks/Hayes/Nenaitting on: 12/30/2024 11:35 AM EST
--- OUTSIDE RECORDS SUMMARY | 2025-10-06 04:38 | XMS_ITS ---
Author Organization Kevin Mtz MD Address [address] [place] [phone] Care Team Providers Care Nursing Information Systems Coordinator Name Role Phone Bibi Kevin Primary Care Provider REASON FOR VISIT RF Eliquis Metoprolol Medications Medication SIG (Take, Route, Frequency, Duration) Notes Start Date End Date Status Metoprolol Succinate 25 MG 1 capsule Ora lly Once a day for 90 days Active Eliquis 5 MG as directed Orally t wice a day for 90 days Active Encounters Encounter Location Date Provider Diagnosis Kevin Mtz MD [address] [place] [phone] 10/06/2025 Kevin Mtz Plan Of Treatment Medication Medication Name Sig Start Date Stop Date Notes Metoprolol Succinate 25 MG 1 capsule Ora lly Once a day for 90 days Eliquis 5 MG as directed Orally t wice a day for 90 days Next Appt Details Provider Name:Kevin ibarra, 02/10/2026 07:30:00 AM, [address], [address], [place], [phone], Provider Name:Kevin Hernandez ier, 02/17/2026 10:00:00 AM, [address], [address], [place], [phone], Provider Name:Kevin Hernandez ier, 08/03/2026 07:30:00 AM, [address], [address], [place], [place], [phone], Provider Name:Kevin Hernandez ier, 08/10/2026 10:30:00 AM, [address] [place] [address], [address] [facility], [place], [id number], Progress Notes * Rosalba CLIFFORDOB:1950 ( 75 yo M)Acc No.[id number]:10/06/2025 Patient: Nam LEHMAN :1950 A ge:75 Y S ex:Male Address:[address] [place] [address], [place], [address] * Refills Refill Eliquis Tablet, 5 MG, Orally, 180, as directed, twice a day, 90 days, Refills=3 Refill Metoprolol Succinate Capsule ER 24 Hour Sprinkle, 25 MG, Orally, 90 Capsule, 1 capsule, Once a day, 90 days, Refills=3 * true * Date: Generated for Van shanks/Hayes/Nenaitting on: 12/30/2024 11:34 AM EST
--- OUTSIDE RECORDS SUMMARY | 2025-10-10 04:00 | XMS_ITS ---
Author Organization Kevin Mtz MD Address [address] [place] [phone] Care Team Providers Care Entry Level Manufacturing Engineer Name Role Phone Kevin Mtz Primary Care Provider Allergies No Known Allergies REASON FOR VISIT 2 week follow up appt Medications Medication SIG (Take, Route, Frequency, Duration) [...] NOSTRIL ONCE A DAY for 60 Active metFORMIN HCl ER 500 MG TAKE 1 TABLET BY MOUTH TWICE DAILY WITH MEALS Active Spironolactone 25 MG 1 tablet Orally Active Metoprolol Succinate 25 MG 1 capsule Ora lly Once a day for 30 days Active Eliquis 5 MG as directed Orally twice a day for 30 days Active Aspir-81 81 MG 1 tablet Orally Once a day Active Problems Problem Type SNOMED Code ICD Code Onset Dates Problem Status W/U Status Risk Notes Problem Atrial fibrillation (01194546) Atrial fibrillation (I48.91) Active confirmed Vital Signs Height 74 in 10/10/2025 Weight 226 lbs 10/10/2025 BMI 29.01 kg/m2 10/10/2025 Encounters Encounter Location Date Provider Diagnosis Kevin Mtz MD [address] [place], [place] [phone] 10/10/2025 Kevin Mtz Lyme disease A69.20 and Atrial fibrillation I48.91 Assessments Encounter Date Diagnosis (ICD Code) Assessment Notes Treatment Notes Treatment Clinical Notes Section Notes 10/10/2025 Lyme disease (ICD-10 - A69.20) patient walks dogs for miles and has some ticks.had severe presentation and was found to have lyme disease and anaplasmosis. has been doing well with treatment with doxycycline and is worried about the future implications. he had no cardiac problems and is feeling well . have reassured him that he has been treated successfully and should have no further problmes. have advise him to get permethrim to treat his clothes which hlep prevent further tick bites. 10/10/2025 Atrial fibrillation (ICD-10 - I48.91) he had a fib while accutely ill and have explained that after heart surgery beople have short episodes of afib and they don't keep peoople on anticoagulants snf. i am not sure if that is the case with a swvere illness like he had and he should discuss that with his yield loss inspector Plan Of Treatment Medication Medication Name Sig Start Date Stop Date Notes Metoprolol Succinate 25 MG 1 capsule Ora lly Once a day for 30 days Eliquis 5 MG as directed Orally t wice a day for 30 days Treatment Notes Assessment Notes Lyme disease patient walks dogs f or miles and has some ticks.had severe presentation and was found to have lyme disease and anaplasmosis. has been doing well with treatment with doxycycline and is worried about the future implications. he had no cardiac problems and is feeling well . have reassured him that he has been treated successfully and should have no further problmes. have advise him to get permethrim to treat his clothes which hlep prevent further tick bites. Atrial fibrillation he had a fib while a ccutely ill and have explained that after heart surgery beople have short episodes of afib and they don't keep peoople on anticoagulants terminal gauger. i am not sure if that is the case with a swvere illness like he had and he should discuss that with his yield loss inspector Next Appt Details Follow Up: 6 Months, Reason: Provider Name:Kevin ibarra, 02/10/2026 07:30:00 AM, [address] [place] [address], [address] [place] [address], [phone], Provider Name:Kevin ibarra, 02/17/2026 10:00:00 AM, [address] [place] [address], [address], [phone], Provider Name:Kevin ibarra, 08/03/2026 07:30:00 AM, [address] [place] [address], Suite [facility], [place], [place], [phone], Provider Name:Kevin ibarra, 08/10/2026 10:30:00 AM, [address] [place] [address], Suite [facility], [place], [place], [phone], Progress Notes * Rosalba CLIFFORDOB:1950 ( 75 yo M)Acc No.[id number]:10/10/2025 Progress Notes Patient: Nam LEHMAN Provider: Geo Mtz MD :1950 A ge:75 Y S ex:Male Date:10/10/2025 Address:[address] [place] [address], [place], [id number] Subjective: * Chief Complaints: * 2 week follow up appt * HPI: S ymptom(s): patient is a 75 yo male here for 2 week follow up visit. had been in hosptial for lyme disease and anaplasmosis. * ROS: G eneral/Constitutional: Denies Derick arias. Lobito borrero F atigue. D enjose F ever. D enies H eadache. E NT: Ortega Sawyer ore throat. R espiratory: Ortega Sepulveda ough. Lobito borrero S hortness of breath at rest. G astrointestinal: Ortega Robin iarrhea. D adair N ausea. * Medical History: * Surgical [...] TAKE 1 TABLET BY MOUTH ONCE DAILY Eliquis 5 MG Tablet as directed Orally twice a day Metoprolol Succinate 25 MG Capsule ER 24 Hour Sprinkle 1 capsule Orally Once a day Taking Aspir-81 81 MG Tablet Delayed Release 1 tablet Orally Once a day Taking Fluticasone Propionate 50 MCG/ACT Suspension INHALE 1 SPRAY IN EACH NOSTRIL ONCE A DAY Taking Tamsulosin HCl 0.4 MG Capsule 1 capsule Orally Once a day Taking Valsartan-hydroCHLOROthiazide 320- 12.5 MG Tablet TAKE [...] 1 TABLET BY MOUTH ONCE DAILY Taking Eliquis 5 MG Tablet as directed Orally twice a day Taking Metoprolol Succinate 25 MG Capsule ER 24 Hour Sprinkle 1 capsule Orally Once a day Not-Taking/PRNTylenol 8 Hour 650 MG Tablet Extended [...] puff as needed Inhalation every 4 hrs DiscontinuedOseltamivir Phosphate 75 MG Capsule 1 capsule Orally Twice a day cefTRIAXone Sodium 2 GM Solution Reconstituted as directed Injection Medication List reviewed and reconciled with the patientDiscontinued Oseltamivir Phosphate 75 MG Capsule 1 capsule Orally Twice a day Discontinued cefTRIAXone Sodium 2 GM Solution Reconstituted as directed Injection Medication List reviewed and reconciled with the patient * Allergies: N .K.D.A.yes[Allergies Verified] Objective: * Vitals: H t: 74, Wt: 226, BMI:29.01, Wt-k.51. * Examination: G eneral Examination: GENERAL APPEARANCE: a lert, well hydrated, in no distress.? HEAD: n ormocephalic. EYES: e xtraocular movement full and smooth. SKIN: g ood turgor. HEART: 2 /6 chase, rubs, gallops, regular rate and rhythm.? LUNGS: n o wheezes, rales, rhonchi, good air movement, clear to auscultation bilaterally. Assessment: * Assessment: 1. L yme disease - A69.20 (Primary) 2 . A trial fibrillation - I48.91 ? Plan: * Treatment: 2. A trial fibrillation Notes: he had a fib while accutely ill and have explained that after heart surgery beople have short episodes of afib and they don't keep peoople on anticoagulants terminal gauger. i am not sure if that is the case with a swvere illness like he had and he should discuss that with his yield loss inspector ? 3. O thers Refill Eliquis Tablet, 5 MG, as directed, Orally, twice a day, 30 days, 60, Refills 3; R efill Metoprolol Succinate Capsule ER 24 Hour Sprinkle, 25 MG, 1 capsule, Orally, Once a day, 30 days, 30 Capsule, Refills 3. * Procedure Codes: G 2211 Complex e/m visit add on * Follow Up: 6 Months * * Sign off status: Completed true * Provider: Geo Mtz MD Date: 12/11/2024 Generated for Van shanks/Hayes/eTransmitting on: 1 12/30/2024 11:36 AM EST History and Physical Notes * HPI (History of Present Illness) Category Sub-Category Detail Notes Category Not es Symptom(s) patient is a 75 yo male here for 2 week follow up visit. had been in hosptial for lyme disease and anaplasmosis Examination Category Sub-Category Detail Notes Category Not es General Examination GENERAL APPEARANCE: alert, w ell hydrated, in no distress HEAD: normocephalic EYES: extraocular movement full and smooth HEART: 2/6 chase, rubs, booker ps, regular rate and rhythm LUNGS: no wheezes, rales, r honchi, good air movement, clear to auscultation bilaterally SKIN: good turgor
--- OUTSIDE RECORDS SUMMARY | 2025-10-13 08:18 | XMS_ITS ---
Author Organization Kevin Mtz MD Address [address] [place] [phone] Care Team Providers Care Ragman Name Role Phone Bibi Kevin Primary Care Provider [phone] REASON FOR VISIT Eliquis and Metoprolol Medications Medication SIG (Take, Route, Frequency, Duration) Notes Start Date End Date Status Metoprolol Succinate 25 MG 1 capsule Ora lly Once a day for 30 days Active Eliquis 5 MG as directed Orally t wice a day for 30 days Active Encounters Encounter Location Date Provider Diagnosis Kevin Mtz MD [address] [place] [phone] 10/13/2025 Kevin Mtz Plan Of Treatment Medication Medication Name Sig Start Date Stop Date Notes Metoprolol Succinate 25 MG 1 capsule Ora lly Once a day for 30 days Eliquis 5 MG as directed Orally t wice a day for 30 days Next Appt Details Provider Name:Kevin ibarra, 02/10/2026 07:30:00 AM, [address], [address], [place], [phone], Provider Name:Kevin Hernandez ier, 02/17/2026 10:00:00 AM, [address] [facility], [address], [place], [phone], Provider Name:Kevin Hernandez ier, 08/03/2026 07:30:00 AM, [address] [place] [address], [address], [place], [place], [phone], Provider Name:Kevin Hernandez ier, 08/10/2026 10:30:00 AM, [address] [place] [address], Suite [facility], [place], [phone], Progress Notes * Rosalba CLIFFORDOB:1950 ( 75 yo M)Acc No.[id number]:10/13/2025 Patient: Nam LEHMAN :1950 A ge:75 Y S ex:Male Address:[address] [place] [address], [place], [address] * Refills Refill Eliquis Tablet, 5 MG, Orally, 60, as directed, twice a day, 30 days, Refills=3 Refill Metoprolol Succinate Capsule ER 24 Hour Sprinkle, 25 MG, Orally, 30 Capsule, 1 capsule, Once a day, 30 days, Refills=3 * true * Date: Generated for Van shanks/Hayes/Nenaitting on: 12/30/2024 11:36 AM EST
--- OUTSIDE RECORDS SUMMARY | 2025-10-13 10:33 | XMS_ITS ---
Author Organization Kevin Mtz MD Address [address] [place] [phone] Care Team Providers Care Hold Worker Name Role Phone Kevin Mtz Primary Care Provider [phone] Medications Medication SIG (Take, Route, Frequency, Duration) Notes Start Date End Date Status Metoprolol Succinate ER 25 MG 1 tablet Orally Once a day for 90 days 10/13/2025 Active Encounters Encounter Location Date Provider Diagnosis Kevin Mtz MD [address] [facility] [address] [place] [phone] 10/13/2025 Kevin Mtz Plan Of Treatment Medication Medication Name Sig Start Date Stop Date Notes Metoprolol Succinate ER 25 MG 1 tablet O rally Once a day for 90 days 10/13/2025 Next Appt Details Provider Name:Kevin ibarra, 02/10/2026 07:30:00 AM, [address] [facility], Suite [facility], [place], [place], [phone], Provider Name:Kevin wilkinsonr, 02/17/2026 10:00:00 AM, [address], [address], [place], [place], [phone], Provider Name:Kevin Hernandez minhr, 08/03/2026 07:30:00 AM, [address], [address], [place], [phone], Provider Name:Kevin Hernandez ier, 08/10/2026 10:30:00 AM, [address], [address], [place], [phone], Progress Notes * Rosalba CLIFFORDOB:1950 ( 75 yo M)Acc No.[id number]:10/13/2025 Patient: Nam LEHMAN :1950 A ge:75 Y S ex:Male Address:[address] [place] [address], [address] * Refills Start Metoprolol Succinate ER Tablet Extended Release 24 Hour, 25 MG, Orally, 90 Tablet, 1 tablet, Once a day, 90 days, Refills=3 * true * Date: Generated for Van shanks/Hayes/Mason on: 12/30/2024 11:35 AM EST
--- OUTSIDE RECORDS SUMMARY | 2025-10-14 10:35 | XMS_ITS ---
Author Organization Kevin Mtz MD Address [address] [place] [phone] Care Team Providers Care Diamond Driller Helper Name Role Phone Kevin Mtz Primary Care Provider Medications Medication SIG (Take, Route, Frequency, Duration) Notes Start Date End Date Status Metoprolol Succinate ER 25 MG 1 tablet Orally Once a day for 90 days 10/13/2025 Active Encounters Encounter Location Date Provider Diagnosis Kevin Mtz MD [address] [facility] [address] [place] [phone] 10/14/2025 Kevin Mtz Plan Of Treatment Medication Medication Name Sig Start Date Stop Date Notes Metoprolol Succinate ER 25 MG 1 tablet O rally Once a day for 90 days 10/13/2025 Next Appt Details Provider Name:Kevin ibarra, 02/10/2026 07:30:00 AM, [address] [facility], Suite [facility], [place], [place], [phone], Provider Name:Kevin wilkinsonr, 02/17/2026 10:00:00 AM, [address], [address], [place], [place], [phone], Provider Name:Kevin Hernandez minhr, 08/03/2026 07:30:00 AM, [address], [address], [place], [place], [phone], Provider Name:Kevin Hernandez minhr, 08/10/2026 10:30:00 AM, [address], [address], [place], [place], [phone], Progress Notes * Rosalba CLIFFORDOB:1950 ( 75 yo M)Acc No.[id number]:10/14/2025 Patient: Nam LEHMAN :1950 A ge:75 Y S ex:Male Address:[address] [place] [address], [address] * Refills Refill Metoprolol Succinate ER Tablet Extended Release 24 Hour, 25 MG, Orally, 90 Tablet, 1 tablet, Once a day, 90 days, Refills=3 * true * Date: Generated for Van shanks/Hayes/Mason on: 12/30/2024 11:34 AM EST
--- OUTSIDE RECORDS SUMMARY | 2025-10-17 03:15 | XMS_ITS ---
Author Organization Kevin Mtz MD Address [address] [place], [place] [phone] Care Team Providers Care Trucksmith Name Role Phone BibiCynthian Primary Care Provider [phone] Results Component Value Reference Range Notes UA ClnCatch+Micro w/rflx Cul t Reviewed date:10/17/2025 05:47:17 PM Interpretation: Performing Lab:[facility], [address] [place] [phone] Notes/Report: Urine, Clean Catch Color Urine Yellow Appearance Urine Clear PH 6.0 5.0-9.0 Glucose Urine UA Negative Negative mg/dL Urine Blood Negative Negative Specific [place]hton - Urine 1.015 1.005-1.025 Urine Protein Negative Neg-Trace mg/dL Urine Ketones Negative Negative mg/dL Nitrite Urine Negative Negative Leukocyte Esterase Urine Negative Negative RBC Urine 0-2 0-2 /HPF WBC Urine 0-5 0-5 /HPF Squamous Epithelial Cell Urine 0-2 0-2 /HPF Bacteria Urine None Seen None Seen Hyaline Casts Urine 0-2 0-2 /LPF REASON FOR VISIT repeat urine in one month Encounters Encounter Location Date Provider Diagnosis Kevin Mtz MD [address] [place] [address] [place] [phone] 10/17/2025 Kevin Mtz Hematuria R31.9 Assessments Encounter Date Diagnosis (ICD Code) Assessment Notes Treatment Notes Treatment Clinical Notes Section Notes 10/17/2025 Hematuria (ICD-10 - R31.9) Plan Of Treatment Next Appt Details Provider Name:Kevin ibarra, 02/10/2026 07:30:00 AM, [address] [place] [address], [address] [place] [address], [phone], Provider Name:Kevin ibarra, 02/17/2026 10:00:00 AM, [address] [place] [address], [address], [phone], Provider Name:Kevin ibarra, 08/03/2026 07:30:00 AM, [address] [place] [address], [address], [phone], Provider Name:Kevin ibarra, 08/10/2026 10:30:00 AM, [address] [place] [address], [address], [phone], Progress Notes * DARRINLissette ODELLChinoOB:1950 ( 75 yo M)Acc No.[id number]:10/17/2025 Progress Note Patient: Nam LEHMAN Provider: Geo Mtz MD :1950 A ge:75 Y S ex:Male Date:10/17/2025 Address:[address] [place] [address], [id number] Subjective: * Chief Complaints: * 1 . Repeat urine in one month. * Medical History: Objective: * Vitals: Assessment: * Assessment: 1. H ematuria - R31.9 (Primary) Plan: * Treatment: * * The named appointment provid er may or may not be the originator of this progress note, and it is not deemed complete until electronically signed by the appointment provider. Sign off status: Pending * Provider: Geo Mtz MD Date: 1 12/18/2024 Generated for Van shanks/Hayes/Mason on: 12/30/2024 11:34 AM EST
--- OUTSIDE RECORDS SUMMARY | 2025-10-17 04:59 | XMS_ITS ---
Author Organization Kevin Mtz MD Address [address] [place] [phone] Care Team Providers Care Tube Sizer And Cutter Operator Name Role Phone BibiCynthian Primary Care Provider [phone] REASON FOR VISIT Metoprolol succ tabs Encounters Encounter Location Date Provider Diagnosis Kevin Mtz MD [address] [facility] [address] [place] [phone] 10/17/2025 Kevin Mtz Plan Of Treatment Next Appt Details Provider Name:Kevin ibarra, 02/10/2026 07:30:00 AM, [address] [place] [address], [address] [place] [address], [phone], Provider Name:Kevin ibarra, 02/17/2026 10:00:00 AM, [address] [place] [address], [address] [place] [address], [phone], Provider Name:Kevin ibarra, 08/03/2026 07:30:00 AM, [address], [address], [place], [phone], Provider Name:Kevin Hernandez fred, 08/10/2026 10:30:00 AM, [address], [address], [place], [phone], Progress Notes * Rosalba CLIFFORDOB:1950 ( 75 yo M)Acc No.[id number]:10/17/2025 Patient: Nam LEHMAN :1950 A ge:75 Y S ex:Male Address:[address] [place] [address], [place], [address] * true * Date: Generated for Van shanks/Hayes/eTransmitting on: 12/30/2024 11:35 AM EST
--- NOTE | ~2025-10-29 | XR_ITS ---
EXAMINATION: XR CHEST CLINICAL INFORMATION: PULMONARY EMBOLISM COMPARISON: Chest x-ray 09/14/2025 TECHNIQUE: 2 views of the chest were obtained. FINDINGS: The lungs are hyperinflated but clear acute process. The heart size and pulmonary vascularity is normal. There is a 8 mm round nodular density right lower lobe likely an artifact. It is not visualized on the lateral view either. This was not seen on recent x-ray 09/14/2025. XR/XR chest 2V IMPRESSION: Hyperinflated lungs without acute process. Electronically signed by: Eric Bui MD 10/29/2025 12:01 PM IVANNA
--- OUTSIDE RECORDS SUMMARY | 2025-10-29 11:34 | XMS_ITS | Clinical Summary ---
Author Organization [facility] Address [address] [place] [address] Phone Care Team Providers Care Oyster Shipper Name Role Phone Kevin Mtz MD Primary [...] patient's age to complete this topic Insurance [facility] Care Teams Oyster Shipper Relationship Specialty Start Date End Date Kevin Mtz MD [address] [place] [address] [phone] [place] PCP - General 11/16/20
--- OUTSIDE RECORDS SUMMARY | 2025-10-29 11:34 | XMS_ITS | Encounter Summary ---
Author Organization [facility] Address [address] [place] [phone] Phone Care Team Providers Care Fuel Island Attendant Name Role Phone Kevin Mtz MD Primary Care Provider Encounter Details Date Type Department Care Team (Late st Contact Info) Description 08/12/2022 Procedure Pass [address] [place] [address] Social History Tobacco Use Types Packs/Day Years [...] on filedocumented in this encounter Care Teams Fuel Island Attendant Relationship Specialty Start Date End Date Kevin Mtz MD [address] [place] [address] [place] [address] PCP - General Internal Medicine 12/31/20 documented as of this encounter Additional Source Comments The information contained in this document represents components of the legal health record. It is not the complete legal health record.[facility]
--- OUTSIDE RECORDS SUMMARY | 2025-10-29 11:34 | XMS_ITS | Patient Health Record ---
Author Organization [facility] Address [address] [place] [address] Care Team Providers Care Processing Technician Name Role Phone Kevin Mtz MD Primary [...] stop date) Former Smoker NA - NA Social History Drugs/Alcohol: Social Info Question Answer Notes Alcohol Screen Did you have a drink containing alcohol in the past year? Yes How often did you have a drink containing alcohol in the past year? 2 to 4 times a month (2 points) How many drinks did you have on a typical day when you were drinking in the past year? 1 or 2 drinks (0 point) How often did you have 6 or more drinks on one occasion in the past year? Never (0 point) Points 2 Interpretation Negative Tobacco Use: Social Info Question Answer Notes Tobacco Use/Smoking Patient is a former smoker When did you stop smoking? 21 years old How long has it been since you last smoked? 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 Problems Problem Type SNOMED Code ICD Code Onset Dates Problem Status W/U Status Risk Notes Problem Colon cancer screening (201213114) Colon cancer screening (Z12.11) Active confirmed Problem Long-term current use of drug therapy (904895168) long-term (current) use of oral hypoglycemic drugs (Z79.84) Active confirmed Plan Of Treatment Future Test Test Name Order Date COLONOSCOPY 08/03/2020 Insurance Providers Payer Name Payer Address Payer Phone Subscriber Number Group Number Insured Name Patient Relationship to Insured Coverage Start Date Coverage End Date [facility] [address] [facility] [place] [phone] [id number] CURTIS CLIFFORD Self - patient is the insured Medical (General) History Medical History History ICD Code type II diabetes hypertension carpal tunnel elevated cholesterol chronic kidney disease Surgical History Surgery Date(Month/Year) Lap Band 2004 varicose vein stripping
--- OUTSIDE RECORDS SUMMARY | 2025-10-29 11:35 | XMS_ITS | Encounter Summary ---
Author Organization [facility] Address [address] [place] [phone] Phone Care Team Providers Care It Application Administrator Name Role Phone Kevin Mtz MD Primary Care Provider Encounter Details Date Type Department Care Team ([facility] st Contact Info) Description 04/25/2023 Ancillary Orders [facility] [address] [place] [address] Alice Ahumada PA-C [address] [place] [address] Orthopedics & Sports Medicine, [place] [address] [email or web address] Social History Tobacco Use Types Packs/Day Years [...] on filedocumented in this encounter Care Teams It Application Administrator Relationship Specialty Start Date End Date Kevin Mtz MD [address] [place] [address] [place] [address] PCP - General Internal Medicine 12/31/20 documented as of this encounter Additional Source Comments The information contained in this document represents components of the legal health record. It is not the complete legal health record.[facility]
--- OUTSIDE RECORDS SUMMARY | 2025-10-29 11:35 | XMS_ITS | Patient Health Record ---
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 Name Role Phone Bibi Kevin Primary Care Provider [phone] Allergies No Known Allergies Results Component Value Reference Range Notes Liver Panel Reviewed date:01/27/2025 12:45:27 PM Interpretation: Performing Lab:[address] [address] Notes/Report: Bilirubin Total 0.4 0.0-1.0 mg/dL Bilirubin Direct 0.2 0.0-0.5 mg/dL Aspartate Amino Transferase 29 5-37 U/L Alanine Aminotransferase 25 0-40 U/L Total Protein 7.3 6.5-8.0 g/dL Albumin Level 4.3 3.5-5.0 g/dL Alkaline Phosphatase 93 39-117 U/L Glucose Fasting Reviewed date:01/27/2025 12:43:38 PM Interpretation: Performing Lab:[address] [address] Notes/Report: Glucose Fasting 111 60-99 mg/dL A fasting glucose from 100-125 mg/dl is considered impaired (pre-diabetes). Lipid Panel with Reflex Reviewed date:01/27/2025 12:43:25 PM Interpretation: Performing Lab:[facility], [address] [place] [phone] Notes/Report: Triglycerides 40 <150 mg/dL Desirable Triglyceride: [...] A1c Reviewed date:01/27/2025 12:42:22 PM Interpretation: Performing Lab:[facility], [address] [place] [phone] Notes/Report: Hemoglobin A1c % 5.9 <6.0 % [...] average glucose, using the formula of the E5W-Abfigrb Average Glucose study (ADAG), Diabetes Care, Vol.31,#8, Jun. 2007 Complete Blood Count Auto Di ff Reviewed date:07/31/2025 12:27:22 PM Interpretation: Performing Lab:[facility], [address] [place] [phone] Notes/Report: White Blood Count 9.5 4.8-10.8 X10*3/uL [...] NRBC Abs Auto 0.000 0.0-0.012 X10*3/uL Comprehensive [place]. Panel Fa st Reviewed date:07/31/2025 04:25:14 PM Interpretation: Performing Lab:[facility], [address] [place] [phone] Notes/Report: Sodium 146 135-145 mmol/L Potassium 4.7 [...] Panel Reviewed date:07/31/2025 12:25:42 PM Interpretation: Performing Lab:[address] [address] Notes/Report: Triglycerides 49 <150 mg/dL Desirable Triglyceride: [...] (Free>4and<10) Reviewed date:07/31/2025 12:28:34 PM Interpretation: Performing Lab:[address] [phone] Notes/Report: PSA,Total (Free>4and<10) 0.99 0.00-4.00 ng/mL A [...] Random Reviewed date:07/31/2025 12:41:22 PM Interpretation: Performing Lab:[address] [address] Notes/Report: Creatinine Urine 75.73 Microalbumin Urine 16.0 Microalbum/Creatinine Ratio Ur 21.1 <30 ug/mg cr Albumin/Creatinine Ratio Reference Ranges: Normal: < 30 ug/mg creatinine Microalbuminuria: 30 - 300 ug/mg creatinine Clinical Albuminuria: > 300 ug/mg creatinine Hemoglobin A1c Reviewed date:07/31/2025 12:24:03 PM Interpretation: Performing Lab:[address] [address] Notes/Report: Hemoglobin A1c % 6.1 <6.0 % [...] average glucose, using the formula of the G8Q-Jmahuyr Average Glucose study (ADAG), Diabetes Care, Vol.31,#8, Jun. 2007 UA ClnCatch+Micro w/rflx Cul t Reviewed date:07/31/2025 04:27:22 PM Interpretation: Performing Lab:[address] [address] Notes/Report: [id number] Urine, Clean Catch Color Urine Yellow Appearance Urine Clear PH 5.5 5.0-9.0 Glucose Urine UA Negative Negative mg/dL Urine Blood Negative Negative Specific [place] - Urine 1.020 1.005-1.025 Urine Protein Negative [...] ff Reviewed date:10/06/2025 05:35:04 PM Interpretation: Performing Lab:[facility], [address] [place] [phone] Notes/Report: White Blood Count 5.7 4.8-10.8 X10*3/uL [...] 0.0-0.2 /100WBC Neutrophils Absolute Auto 2.7 2.0-8.3 x10*3/uL Imm Gran Abs Auto 0.01 0.00-0.03 X10*3/uL Lymphocytes Absolute Auto 2.3 1.2-4.9 X10*3/uL Monocytes Absolute Auto 0.4 0.1-1.2 X10*3/uL Eosinophils Absolute Auto 0.3 0.0-0.4 X10*3/uL Basophils Absolute Auto 0.0 0.0-0.2 X10*3/uL NRBC Abs Auto 0.000 0.0-0.012 X10*3/uL Comprehensive [place]. Panel Fa st Reviewed date:10/06/2025 05:33:47 PM Interpretation: Performing Lab:[facility], [address] [place] [phone] Notes/Report: Sodium 142 135-145 mmol/L Potassium 5.0 3.3-5.1 mmol/L Slight Hemolysis.Interpret result with caution. Chloride 110 96-108 mmol/L [...] PROFILE Reviewed date:10/06/2025 05:20:55 PM Interpretation: Performing Lab:[facility], [address] [place] [phone] Notes/Report: Iron 94 45-160 mcg/dL Slight Hemolysis.Interpret result with caution. Total Iron Binding Capacity 293 228-428 mcg/dL Percent Iron Saturation 32 15-50 % Unsaturated Iron Binding 199 Vitamin B12 and Folate Reviewed date:10/06/2025 05:20:45 PM Interpretation: Performing Lab:[facility], [address] [place] [phone] Notes/Report: Vitamin B12 899 200-900 pg/mL NORMAL 200-900 PG/ML INDETERMINATE 160-199 PG/ML DEFICIENT < 160 PG/ML Folate 15.7 > or = 4.0 ng/mL Reference Values: > or = 4.0 ng/mL < 4.0 ng/mL suggests folate deficiency Methotrexate, aminopterin and folinic acid (leucovorin) are chemotherapeutic agents whose molecular structures are similar to folate; therefore, the Bar Machine Operator Multiple Spindle folate assay cannot be used for patients using these drugs. Microalbumin, Random Reviewed date:10/06/2025 01:00:31 PM Interpretation: Performing Lab:[facility], [address] [place] [phone] Notes/Report: Creatinine Urine 75.98 Microalbumin Urine 36.0 Microalbum/Creatinine Ratio Ur 47.3 <30 ug/mg cr Albumin/Creatinine Ratio Reference Ranges: Normal: < 30 ug/mg creatinine Microalbuminuria: 30 - 300 ug/mg creatinine Clinical Albuminuria: > 300 ug/mg creatinine Hemoglobin A1c Reviewed date:10/06/2025 05:20:37 PM Interpretation: Performing Lab:[address] [address] Notes/Report: Hemoglobin A1c % 6.3 <6.0 % [...] average glucose, using the formula of the K3Z-[place] Average Glucose study (ADAG), Diabetes Care, Vol.31,#8, Jun. 2007 UA ClnCatch+Micro w/rflx Cul t Reviewed date:10/06/2025 05:37:13 PM Interpretation: Performing Lab:[address] [address] Notes/Report: Urine, Clean Catch Color Urine Yellow Appearance Urine Clear PH 5.5 5.0-9.0 Glucose Urine UA Negative Negative mg/dL Urine Blood Negative Negative Specific [place] - Urine 1.020 1.005-1.025 Urine Protein Negative Neg-Trace mg/dL Urine Ketones Negative Negative mg/dL Nitrite Urine Negative Negative Leukocyte Esterase Urine Negative Negative RBC Urine 0-2 0-2 /HPF WBC Urine 0-5 0-5 /HPF Squamous Epithelial Cell Urine 0-2 0-2 /HPF Bacteria Urine None Seen None Seen Hyaline Casts Urine 0-2 0-2 /LPF UA ClnCatch+Micro w/rflx Cul t Reviewed date:10/17/2025 05:47:17 PM Interpretation: Performing Lab:[facility], [address] [place] [phone] Notes/Report: Urine, Clean Catch Color Urine Yellow Appearance Urine Clear PH 6.0 5.0-9.0 Glucose Urine UA Negative Negative mg/dL Urine Blood Negative Negative Specific [place] - Urine 1.015 1.005-1.025 Urine Protein Negative Neg-Trace mg/dL Urine Ketones Negative Negative mg/dL Nitrite Urine Negative Negative Leukocyte Esterase Urine Negative Negative RBC Urine 0-2 0-2 /HPF WBC Urine 0-5 0-5 /HPF Squamous Epithelial Cell Urine 0-2 0-2 /HPF Bacteria Urine None Seen None Seen Hyaline Casts Urine 0-2 0-2 /LPF Microalbumin, Random Reviewed date:02/03/2025 01:49:57 PM Interpretation: Performing Lab:[facility], [address] [place] [phone] Notes/Report: Creatinine Urine 112.03 Microalbumin Urine 28.0 Microalbum/Creatinine Ratio Ur 24.9 <30 ug/mg cr Albumin/Creatinine Ratio Reference Ranges: Normal: < 30 ug/mg creatinine Microalbuminuria: 30 - 300 ug/mg creatinine Clinical Albuminuria: > 300 ug/mg creatinine UA ClnCatch+Micro w/rflx Cul t Reviewed date:02/03/2025 01:54:17 PM Interpretation: Performing Lab:[facility], [address] [place] [phone] Notes/Report: Urine, Clean Catch Color Urine Yellow Appearance Urine Clear PH 5.0 5.0-9.0 Glucose Urine UA Negative Negative mg/dL Urine Blood Negative Negative Specific [place] - Urine 1.025 1.005-1.025 Urine Protein Negative [...] Gold Reviewed date:01/27/2025 12:40:34 PM Interpretation: Performing Lab:[facility], [address] [place] [phone] Notes/Report: Morelia Garcia See Note Specimen held untested for 24 hours; Call to request Chemistry testing. Complete Blood Count Auto Di ff Reviewed date:09/22/2025 12:42:32 PM Interpretation:09-11-25 Performing Lab:[facility], [address] [place] [phone] Notes/Report: White Blood Count 3.5 4.8-10.8 X10*3/uL [...] INR Reviewed date:09/02/2025 12:28:52 PM Interpretation: Performing Lab:[facility], [address] [place] [phone] Notes/Report: Prothrombin Time 11.1 10.9-12.4 SEC INTERNATIONAL [...] Time Reviewed date:09/02/2025 12:27:37 PM Interpretation: Performing Lab:[facility], [address] [place] [phone] Notes/Report: Partial Thromboplastin Time 27.0 26.7-34.1 SEC Liver Panel Reviewed date:09/02/2025 12:32:09 PM Interpretation: Performing Lab:[facility], [address] [place] [address] Notes/Report: Bilirubin Total 0.6 0.0-1.0 mg/dL Bilirubin Direct 0.3 0.0-0.5 mg/dL Aspartate Amino Transferase 86 5-37 U/L Alanine Aminotransferase 63 0-40 U/L Total Protein 6.7 6.5-8.0 g/dL Albumin Level 3.9 3.5-5.0 g/dL Alkaline Phosphatase 67 39-117 U/L Basic Metabolic Panel Reviewed date:09/02/2025 12:33:55 PM Interpretation: Performing Lab:[facility], [address] [place] [phone] Notes/Report: Sodium 136 135-145 mmol/L Potassium 4.3 [...] Magnesium Reviewed date:09/02/2025 12:32:18 PM Interpretation: Performing Lab:[facility], [address] [place] [phone] Notes/Report: Magnesium 1.9 1.6-2.6 mg/dL Troponin-I High Sensitivity Reviewed date:09/02/2025 12:33:31 PM Interpretation: Performing Lab:[facility], [address] [place] [phone] Notes/Report: Troponin-I High Sensitivity 157.2 <3.5-35.0 ng/L Critical value for test(s):TROPONIN Results called to and read back by: SEBAS Person calling:CARI Date:09/02/25 Time:0934 The Reese high sensitivity Troponin-I results should be used in conjunction with other diagnostic information such as ECG, clinical observations and information, and patient symptoms to aid in the diagnosis of [place]. Glucose, Whole Blood Reviewed date:09/03/2025 01:01:14 PM Interpretation: Performing Lab:[facility], [address] [place] [phone] Notes/Report: Glucose, Whole Blood 158 60-115 mg/dL METER # : [id number] Respiratory Panel Reviewed date:09/03/2025 01:00:32 PM Interpretation: Performing Lab:[facility], [address] [place] [phone] Notes/Report: Adenovirus PCR Not Detected Not Detect. [...] testing should be considered. Results reported to [facility]. This test has been authorized by the [...] results may also be affected by concurrent antiviral/antibacteria l therapy or levels of organism in the specimen that are below the limit of detection for this test. This assay is performed by Multiplexed PCR, utilizing the ZENT Array. COVID-19 ID NOW (Wattpad) Reviewed date:09/02/2025 12:29:14 PM Interpretation: Performing Lab:[facility], [address] [place] [phone] Notes/Report: IDNOW Serial# [id number] COVID-19 Test Negative Negative COVID-19 Note See [...] with other viruses. Testing facilities within the [facility] and its territories are required to report [...] by authorized laboratories. Testing performed on the Wattpad ID NOW utilizing NAAT. UA ClnCatch+Micro w/rflx Cul t Reviewed date:09/03/2025 01:01:44 PM Interpretation: Performing Lab:[address] [address] Notes/Report: [id number] Urine, Clean Catch Color Urine Dark Yellow Appearance Urine Cloudy PH 5.0 5.0-9.0 Glucose Urine UA Negative Negative mg/dL Urine Blood Small (1+) Negative Specific [place] - Urine 1.025 1.005-1.025 Urine Protein 100 [...] t) Reviewed date:09/02/2025 12:29:03 PM Interpretation: Performing Lab:[facility], [address] [place] [phone] Notes/Report: IDNOW Serial# [id number] Influenza A Negative Negative Influenza B2 Negative [...] specimen and co-infection with Respiratory Syncytial Virus. CT cervical spine wo con Reviewed date:09/02/2025 12:30:03 PM Interpretation: Performing Lab: Notes/Report: [address] [address] [address] Scan Report Signed Patient: Nam King MR#: [id number] 6 : 1950 Acct:[id number] Age/Sex: 75 / M ADM Date: 09/02/25 Loc: .ED Attending Dr: Ordering Physician: Gretchen Driscoll Date of Service: 09/02/25 Procedure(s): CT cervical spine wo IV con Accession Number(s): [id number] cc: Kevin Mtz MD; Gretchen Driscoll Report Number: [id number]: Total DLP = 0.00 mGy-cm Reason for [...] Mekhi Lee MD 09/02/2025 10:17 AM EDT Dictated By: Mekhi Lee MD Signed By: <Electronically signed by Mekhi Lee MD in OV> 09/02/25 1017 DD/ 0945 TD/TT: 09/02/25 1007 Piece Cutter: [place] [address] CT Scan Report Signed Patient: Nam King MR#: [id number] 6 : 1950 Acct:[id number] Age/Sex: 75 / M ADM Date: 09/02/25 Loc: .ED Attending Dr: Ordering Physician: Gretchen Driscoll Date of Service: 09/02/25 Procedure(s): CT cervical spine wo IV con Accession Number(s): [id number] cc: Kevin Mtz MD; Gretchen Driscoll Report Number: [id number]: Total DLP = 0.00 mGy-cm Reason for [...] 09/02/25 1017 DD/ 0945 TD/TT: 09/02/25 1007 Piece Cutter: CT head/brain wo con Reviewed date:09/02/2025 12:28:43 PM Interpretation: Performing Lab: Notes/Report: [address] [address] [address] Scan Report Signed Patient: Nam King MR#: [id number] 6 : 1950 Acct:[id number] Age/Sex: 75 / M ADM Date: 09/02/25 Loc: .ED Attending Dr: Ordering Physician: Gretchen Driscoll Date of Service: 09/02/25 Procedure(s): CT head/brain wo IV con Accession Number(s): [id number] cc: Kevin Mtz MD; Gretchen Driscoll Report Number: [id number]: Total DLP = 1144.00 mGy-cm Reason for [...] Mekhi Lee MD 09/02/2025 10:14 AM EDT RP Dictated By: Mekhi Lee MD Signed By: <Electronically signed by Mekhi Lee MD in OV> 09/02/25 1014 DD/ 0945 TD/TT: 09/02/25 1007 Piece Cutter: [place] [address] CT Scan Report Signed Patient: Nam King MR#: [id number] 6 : 1950 Acct:[id number] Age/Sex: 75 / M ADM Date: 09/02/25 Loc: .ED Attending Dr: Ordering Physician: Gretchen Driscoll Date of Service: 09/02/25 Procedure(s): CT head/brain wo IV con Accession Number(s): [id number] cc: Kevin Mtz MD; Gretchen Driscoll Report Number: [id number]: Total DLP = 1144.00 mGy-cm Reason for [...] is no intracranial hemorrhage. There is no mass-eff ect or [...] Mekhi Lee MD 09/02/2025 10:14 AM EDT RP Dictated By: Mekhi Lee MD Signed By: <Electronically signed by Mekhi Lee MD in OV> 09/02/25 1014 DD/ 0945 TD/TT: 09/02/25 1007 Piece Cutter: XR chest 1V Reviewed date:09/22/2025 12:44:32 PM Interpretation:in patient at [facility] Performing Lab: Notes/Report: [address] [address] XRay Report Signed Patient: Nam King MR#: [id number] 6 : 1950 Acct:[id number] Age/Sex: 75 / M ADM Date: 09/02/25 Loc: HO.ED Attending Dr: Ordering Physician: Gretchen Driscoll Date of Service: 09/02/25 Procedure(s): XR chest 1V Accession Number(s): [id number] cc: Kevin Mtz MD; Gretchen Driscoll Reason [...] signed by Jerry Royal MD in OV> 09/02/25957 DD/ 5 TD/TT: 09/02/25955 Piece Cutter: [place] [address] XRay Report Signed Patient: Nam King MR#: [id number] 6 : 1950 Acct:[id number] Age/Sex: 75 / M ADM Date: 09/02/25 Loc: .ED Attending Dr: Ordering Physician: Gretchen Driscoll Date of Service: 09/02/25 Procedure(s): XR nam st 1V Accession Number(s): [id number] cc: Kevin Mtz MD; Gretchen Driscoll Reason [...] MD in OV> 09/02/2558 DD/ 5 TD/TT: 09/02/25 0956 Piece Cutter: Troponin-I High Sensitivity Reviewed date:09/02/2025 05:05:20 PM Interpretation: Performing Lab:[address] [address] Notes/Report: Troponin-I High Sensitivity 119.0 <3.5-35.0 ng/L Critical value for TROP: Results called to and read back by: PAOLO Person calling: MARY Date: 09/02/25 Time: 1357 The Reese high sensitivity Troponin-I results should be used in conjunction with other diagnostic information such as ECG, clinical observations and information, and patient symptoms to aid in the diagnosis of [place]. Complete Blood Count no Diff Reviewed date:09/03/2025 12:59:10 PM Interpretation: Performing Lab:[facility], [address] [place] [phone] Notes/Report: White Blood Count 2.5 4.8-10.8 X10*3/uL [...] Panel Reviewed date:09/03/2025 12:58:41 PM Interpretation: Performing Lab:[address] [address] Notes/Report: Sodium 138 135-145 mmol/L Potassium 3.8 [...] Panel Reviewed date:09/03/2025 12:58:17 PM Interpretation: Performing Lab:[facility], [address] [place] [phone] Notes/Report: Bilirubin Direct 0.3 0.0-0.5 mg/dL Glucose, Whole Blood Reviewed date:09/03/2025 12:58:50 PM Interpretation: Performing Lab:[facility], [address] [place] [phone] Notes/Report: Glucose, Whole Blood 129 60-115 mg/dL METER # : [id number] Glucose, Whole Blood Reviewed date:09/03/2025 12:57:19 PM Interpretation: Performing Lab:[facility], [address] [place] [phone] Notes/Report: Glucose, Whole Blood 141 60-115 mg/dL METER # : [id number] Glucose, Whole Blood Reviewed date:09/04/2025 12:10:58 PM Interpretation: Performing Lab:[facility], [address] [place] [phone] Notes/Report: Glucose, Whole Blood 130 60-115 mg/dL METER # : [id number] Complete Blood Count Auto Di ff Reviewed date:09/04/2025 12:13:15 PM Interpretation: Performing Lab:[facility], [address] [place] [phone] Notes/Report: White Blood Count 3.3 4.8-10.8 X10*3/uL [...] X10*3/uL NRBC Abs Auto 0.000 0.0-0.012 X10*3/uL C ORRECTED REPORT C ORRECTED REPORT Comprehensive [place]. Panel Fa st Reviewed date:09/04/2025 12:18:28 PM Interpretation: Performing Lab:[facility], [address] [place] [phone] Notes/Report: Sodium 137 135-145 mmol/L Potassium 3.3 [...] Blood Reviewed date:09/04/2025 12:18:57 PM Interpretation: Performing Lab:[facility], [address] [place] [phone] Notes/Report: Glucose, Whole Blood 120 60-115 mg/dL METER # : [id number] SLIDE REVIEW Reviewed date:09/04/2025 12:19:21 PM Interpretation: Performing Lab:[facility], [address] [place] [phone] Notes/Report: SLIDE REVIEW VERIFIED Glucose, Whole Blood Reviewed date:09/04/2025 12:10:39 PM Interpretation: Performing Lab:[facility], [address] [place] [phone] Notes/Report: Glucose, Whole Blood 150 60-115 mg/dL METER # : [id number] Complete Blood Count Auto Di ff Reviewed date:09/11/2025 03:31:43 PM Interpretation: Performing Lab:[facility], [address] [place] [phone] Notes/Report: White Blood Count 7.9 4.8-10.8 X10*3/uL [...] INR Reviewed date:09/11/2025 03:31:17 PM Interpretation: Performing Lab:[facility], [address] [place] [phone] Notes/Report: Prothrombin Time 17.7 11.2-13.5 SEC INTERNATIONAL [...] 2.5 - 3.5 Comprehensive Met. Panel Reviewed date:09/12/2025 09:37:38 AM Interpretation: Performing Lab:[address] [address] Notes/Report: Sodium 138 135-145 mmol/L Potassium 4.7 [...] Acid Reviewed date:09/11/2025 05:03:25 PM Interpretation: Performing Lab:[address] [address] Notes/Report: Lactic Acid 0.8 0.5-2.0 mmol/L Magnesium Reviewed date:09/12/2025 09:34:49 AM Interpretation: Performing Lab:[address] [address] Notes/Report: Magnesium 1.7 1.6-2.6 mg/dL Troponin-I High Sensitivity Reviewed date:09/11/2025 03:29:27 PM Interpretation: Performing Lab:[address] [place] [address] Notes/Report: Troponin-I High Sensitivity 13.6 <3.5-35.0 ng/L The Reese high sensitivity Troponin-I results should be used in conjunction with other diagnostic information such as ECG, clinical observations and information, and patient symptoms to aid in the diagnosis of [place]. Lipase Reviewed date:09/12/2025 09:34:56 AM Interpretation: Performing Lab:[facility], [address] [place] [phone] Notes/Report: Lipase 45 8-78 U/L Glucose, Whole Blood Reviewed date:09/12/2025 09:35:03 AM Interpretation: Performing Lab:[facility], [address] [place] [phone] Notes/Report: Glucose, Whole Blood 190 60-115 mg/dL METER # : [id number] COVID-19 ID NOW (Wattpad) Reviewed date:09/11/2025 03:29:08 PM Interpretation: Performing Lab:[facility], [address] [place] [phone] Notes/Report: IDNOW Serial# [id number] COVID-19 Test Negative Negative COVID-19 Note See [...] with other viruses. Testing facilities within the [facility] and its territories are required to report [...] by authorized laboratories. Testing performed on the Wattpad ID NOW utilizing NAAT. Blood Culture (First) Reviewed date:09/16/2025 06:38:54 PM Interpretation: Performing Lab:[address] [address] Notes/Report: Blood Culture (First) No growth after 5 days. Blood Culture (Second) Reviewed date:09/16/2025 06:42:12 PM Interpretation: Performing Lab:[address] [address] Notes/Report: Blood Culture (Second) No growth after 5 days. UA ClnCatch+Micro w/rflx Cul t Reviewed date:10/21/2025 07:36:45 AM Interpretation:10-17-2025 Performing Lab:[address] [address] Notes/Report: [id number] Urine, Clean Catch Color Urine Yellow Appearance Urine Clear PH 6.5 5.0-9.0 Glucose Urine UA Negative Negative mg/dL Urine Blood Trace Negative Specific [place] - Urine 1.020 1.005-1.025 Urine Protein 30 (1+) Neg-Trace mg/dL Urine Ketones Trace Negative mg/dL Nitrite Urine Negative Negative Leukocyte Esterase Urine Negative Negative RBC Urine 6-10 0-2 /HPF WBC Urine 0-5 0-5 /HPF Squamous Epithelial Cell Urine 0-2 0-2 /HPF Bacteria Urine None Seen None Seen Hyaline Casts Urine 0-2 0-2 /LPF Influenza A B2 ID NOW (Abbot t) Reviewed date:09/11/2025 03:27:42 PM Interpretation: Performing Lab:[address] [address] Notes/Report: IDNOW Serial# [id number] Influenza A Negative Negative Influenza B2 Negative [...] pt Reviewed date:09/11/2025 03:29:18 PM Interpretation: Performing Lab:[facility], [address] [place] [phone] Notes/Report: NT Pro B Type Natriuretic Pept [...] in the context of other clinical information. CT angio chest PE protocol Reviewed date:09/12/2025 09:34:42 AM Interpretation: Performing Lab: Notes/Report: [address] [address] [address] Scan Report Signed Patient: Nam King MR#: [id number] 6 : 1950 Acct:[id number] Age/Sex: 75 / M ADM Date: 09/11/25 Loc: .ED Attending Dr: Ordering Physician: Bradley Crowell DO Date of Service: 09/11/25 Procedure(s): CT angio chest PE protocol Accession Number(s): [id number] cc: Kevin Mtz MD; Bradley Crowell DO Report Number: [id number]: Total DLP = 309.00 mGy-cm Reason for Exam: weakness, / lung infxn, PE? CLINICAL HISTORY: weakness, lung infxn, PE? CT angiography chest with contrast. 3D Postprocessing. Comparison: CR/SR - XR CHEST 2 VIEWS - 09/11/25 13:44 EST CR/SR - XR CHEST 1 VIEW - 09/02/25 09:46 EDT Findings: Normal heart size. Normal RV/LV ratio. Aortic and coronary atherosclerosis. No aneurysm. No pulmonary artery filling defects. Small hiatal hernia. Gastric lap band in place. Wall thickening of the esophagus. 5 mm peripherally calcified nodule in the left thyroid lobe. Mild dependent atelectasis. No consolidation, pleural effusion, or pneumothorax. No acute findings in the visualized upper abdomen. Chronic left rib fractures. Degenerative changes of the spine. Diffuse idiopathic skeletal hyperostosis. No acute fracture. IMPRESSION: 1. No pulmonary embolus. No evidence of pneumonia. 2. Esophageal wall thickening, this could be reflux esophagitis. Consider follow-up with gastroenterology for further evaluation. This document has been electronically signed by: Monica De MD on 09/11/2025 18:32:04 Dictated By: Monica De MD Signed By: <Electronically signed by Monica De MD in OV> 09/11/251832 DD/ 31 TD/TT: 09/11/251831 Piece Cutter: [place] [address] CT Scan Report Signed Patient: Nam King MR#: [id number] 6 : 1950 Acct:[id number] Age/Sex: 75 / M ADM Date: 09/11/25 Loc: .ED Attending Dr: Ordering Physician: Bradley Crowell DO Date of Service: 09/11/25 Procedure(s): CT ang io chest PE protocol Accession Number(s): [id number] cc: Kevin Mtz MD; Bradley Crowell DO Report Number: [id number]: Total DLP = 309.00 mGy-cm Reason for Exam: weakness, / lung infxn, PE? CLINICAL HISTORY: weakness, lung infxn, PE? CT angiography chest with contrast. 3D Postprocessing. Comparison: CR/SR - XR CHEST 2 VIEWS - 09/11/25 13:44 EST CR/SR - XR CHEST 1 V IEW - 09/02/25 09:46 EDT Findings: Normal heart size. Normal RV/LV ratio. Aortic and coronary atherosclerosis. No aneurysm. No pulmonary artery filling defects. Small hiatal hernia. Gastric lap band in place. Wall thickening of the esophagus. 5 mm peripherally calcified nodule in the left thyroid lobe. Mild dependent atelectasis. No consolidation, pleural effusion, or pneumothorax. No acute findings in the visualized upper abdomen. Chronic left rib fractures. Degenerative changes of the spine. Diffuse idiopathic skeletal hyperostosis. No acute fracture. IMPRESSION: 1. No pulmonary embolus. No evidence of pneumonia. 2. Esophageal wall thickening, this could be reflux esophagitis. Consider follow-up with gastroenterology for further evaluation. This document has be en electronically signed by: Monica De MD on 09/11/2025 18:32:04 Dictated By: Monica De MD Signed By: <Electronically signed by Monica De MD in OV> 09/11/251832 DD/ 31 TD/TT: 09/11/251831 Piece Cutter: CT abdomen pelvis wo con Reviewed date:09/12/2025 09:35:35 AM Interpretation: Performing Lab: Notes/Report: [place] [address] [place] Scan Report Signed Patient: Nam King MR#: [id number] 6 : 1950 Acct:[id number] Age/Sex: 75 / M ADM Date: 09/11/25 Loc: [facility] C-[address]: Elvira Wilson PA-C Ordering Physician: Elvira Wilson PA-C Date of Service: 09/11/25 Procedure(s): CT abdomen pelvis wo IV con Accession Number(s): [id number] cc: Kevin Mtz MD; Elvira Wilson PA-C Report Number: [id number]: Total DLP = 0.00 mGy-cm Reason for Exam: SIRS unknown source CLINICAL HISTORY: SIRS unknown source CT abdomen and pelvis without contrast Comparison: None provided Findings: Mild dependent atelectasis. Liver, gallbladder, pancreas, spleen, and adrenal glands are within normal limits. No hydronephrosis. Nonspecific mild bilateral perinephric stranding. Small hiatal hernia. Gastric lap band in place.Moderate stool burden. No bowel obstruction, pneumatosis or pneumoperitoneum. Normal appendix. Aortic atherosclerosis. No aneurysm. Prostatomegaly. Excreted contrast in the urinary bladder. Degenerative changes of the spine. Chronic appearing superior endplate compression fracture of L3. IMPRESSION: 1. No acute intraabdominal or pelvic pathology. This document has been electronically signed by: Monica De MD on 09/11/2025 22:53:13 Dictated By: Monica De MD Signed By: <Electronically signed by Monica De MD in OV> 09/11/252252 DD/ 52 TD/TT: 09/11/252252 Piece Cutter: [place] [address] CT Scan Report Signed Patient: Nam King MR#: [id number] 6 : 1950 Acct:[id number] Age/Sex: 75 / M ADM Date: 09/11/25 [facility]: Elizabeth Wilson PA-C Ordering Physician: Elvira Wilson PA-C Date of Service: 09/11/25 Procedure(s): CT abdomen pelvis wo IV con Accession Number(s): [id number] cc: Kevin Mtz MD; Elvira Wilson PA-C Report Number: [id number]: Total DLP = 0.00 mGy-cm Reason for Exam: SIR S unknown source CLINICAL HISTORY: SI RS unknown source CT abdomen and pelvi s without contrast Comparison: None provided Findings: Mild dependent atelectasis. Liver, gallbladder, pancreas, spleen, and adrenal glands are within normal limits. No hydronephrosis. Nonspecific mild bilateral perinephric stranding. Small hiatal hernia. Gastric lap band in place.Moderate stool burden. No bowel obstruction , pneumatosis or pneumoperitoneum. Normal appendix. Aortic atheroscleros is. No aneurysm. Prostatomegaly. Excreted contrast in the urinary bladder. Degenerative changes of the spine. Chronic appearing superior endplate compression fracture of L3. IMPRESSION: 1. No acute intraabdominal or pelvic pathology. This document has be en electronically signed by: Monica De MD on 09/11/2025 22:53:13 Dictated By: Monica De MD Signed By: <Electronically signed by Monica De MD in OV> 09/11/252252 DD/ 52 TD/TT: 09/11/252252 Piece Cutter: XR chest 2V Reviewed date:09/18/2025 02:35:31 PM Interpretation: Performing Lab: Notes/Report: [address] [address] XRay Report Signed Patient: Nam King MR#: [id number] 6 : 1950 Acct:[id number] Age/Sex: 75 / M ADM Date: 09/11/25 Loc: HO.ED Attending Dr: Ordering Physician: Kath Beaulieu Date of Service: 09/11/25 Procedure(s): XR chest 2V Accession Number(s): [id number] cc: Kevin Mtz MD; Kath Beaulieu Reason [...] by: Delma Fry MD 09/11/2025 02:17 PM [facility] Dictated By: Delma Fry MD Signed By: <Electronically signed by Delma Fry MD in OV> 09/11/25 1417 DD/ TD/TT: 09/11/258 Piece Cutter: JOSTIN [address] [address] XRay Report Signed Patient: Nam King MR#: [id number] 6 : 1950 Acct:[id number] Age/Sex: 75 / M ADM Date: 09/11/25 Loc: HO.ED Attending Dr: Ordering Physician: Kath Beaulieu Date of Service: 09/11/25 Procedure(s): XR nam st 2V Accession Number(s): [id number] cc: Kevin Mtz MD; Kath Beaulieu Reason [...] gastric lap band. XR/XR chest 2V IMPRESSION: Increase d right central bronchovascular markings questionable for airways disease. Similar opacities in both upper lobes may represent repres ent summation of bone and vascular structures and small symmetric nodu les at both lung bases that may represent nipple shadows. Recommend chest x-ray or chest CT follow-up. Electronically jay d by: Delma Fry MD 09/11/2025 02:17 PM [facility] Dictated By: Delma Fry MD Signed By: <Electronically signed by Delma Fry MD in OV> 09/11/25 1417 DD/ 1330 TD/TT: 09/11/25 1338 Piece Cutter: JOSTIN Sun. Panel Reviewed date:09/12/2025 12:44:07 PM Interpretation: Performing Lab:[facility], [address] [place] [address] Notes/Report: Sodium 138 135-145 mmol/L Potassium 4.3 3.3-5.1 mmol/L Chloride 103 96-108 mmol/L Carbon Dioxide 25 22-29 mmol/L Anion Gap 14 12-20 Blood Urea Nitrogen 17 9-16 mg/dL Creatinine 1.18 0.5-1.4 mg/dL Creatinine Clr Calc Pharmacy 63.6 eGFR (calculated from the MDRD study equation) and eCrCl (calculated from the Cockcroft-Gault equation) are based on different parameters and may not yield comparable results. If eCrCl result is absurd, please check patient's height/weight. Estimated Glomerular Filt Rate > 60 Chronic Kidney Disease: Estimated GFR < 60 mL/min/1.73m2 Severe Kidney Disease: Estimated GFR < 15 mL/min/1.73m2 Glucose Random 106 60-115 mg/dL Calcium 9.2 8.4-10.2 mg/dL Bilirubin Total 1.1 0.0-1.0 mg/dL Aspartate Amino Transferase 38 5-37 U/L Alanine Aminotransferase 51 0-40 U/L Total Protein 7.6 6.5-8.0 g/dL Albumin Level 4.9 3.5-5.0 g/dL Alkaline Phosphatase 71 39-117 U/L Glucose, Whole Blood Reviewed date:09/12/2025 09:36:14 AM Interpretation: Performing Lab:[facility], [address] [place] [address] Notes/Report: Glucose, Whole Blood 99 60-115 mg/dL METER # : [id number] Respiratory Panel Reviewed date:09/12/2025 10:48:23 AM Interpretation: Performing Lab:[address] [address] Notes/Report: Adenovirus PCR Not Detected Not Detect. [...] testing should be considered. Results reported to [facility]. This test has been authorized by the [...] results may also be affected by concurrent antiviral/antibacteria l therapy or levels of organism in the specimen that are below the limit of detection for this test. This assay is performed by Multiplexed PCR, utilizing the ZENT Array. NT Pro B Type Natriuretic Pe pt Reviewed date:09/12/2025 09:35:45 AM Interpretation: Performing Lab:[facility], [address] [place] [address] Notes/Report: NT Pro B Type Natriuretic Pept 2432.4 <300 pg/mL Reference Range: Age Group (years) [...] context of other clinical information. XR chest 1V Reviewed date:09/12/2025 09:36:07 AM Interpretation: Performing Lab: Notes/Report: [address] [address] XRay Report Signed Patient: Nam King MR#: [id number] 6 : 1950 Acct:[id number] Age/Sex: 75 / M ADM Date: 09/11/25 Loc: [facility] 474-[address]: Rand ROBLERO Ordering Physician: Rand Ch Date of Service: 09/12/25 Procedure(s): XR chest 1V Accession Number(s): [id number] cc: Rand Ch; Kevin Mtz MD Reason for Exam: Sudden hypoxia in 70s EXAMINATION: XR CHEST 1 VIEW HISTORY: Sudden hypoxia in 70s COMPARISON: Comparison is made with the prior examination dated 09/11/2025. FINDINGS: Two AP portable views of the chest performed at 8:03 AM are submitted. There is no pulmonary vascular prominence with perihilar airspace opacities and curly B-lines, consistent with pulmonary edema. There is no pleural effusion or pneumothorax. The heart is normal in size. There is degenerative disc disease of the spine. XR/XR chest 1V IMPRESSION: Pulmonary edema. Electronically signed by: Pee Gilliland MD 09/12/2025 08:16 AM EST Workstation: Dictated By: Pee Gilliland MD Signed By: <Electronically signed by Pee Gilliland MD in OV> 09/12/25815 DD/ 2 TD/TT: 09/12/25811 Piece Cutter: [address] [address] XRay Report Signed Patient: Nam King MR#: [id number] 6 : 1950 Acct:[id number] Age/Sex: 75 / M ADM Date: 09/11/25 [facility]: Walker ROBLERO Ordering Physician: Rand Ch Date of Service: 09/12/25 Procedure(s): XR nam st 1V Accession Number(s): [id number] cc: Rand Ch; Kevin Mtz MD Reason for Exam: Odalys den hypoxia in 70s EXAMINATION: XR CHES T 1 VIEW HISTORY: Sudden hypo moe in 70s COMPARISON: Comparis on is made with the prior examination dated 09/11/2025. FINDINGS: Two AP portable views of the chest performed at 8:03 AM are submitted. There is no pulmonary vascular prominence with perihilar airspace opacities a nd curly B-lines, consistent with pulmonary edema. There is no pleural effusion or pneumothorax. The heart is normal in size. There is degenerative disc disease of the spine. XR/XR chest 1V IMPRESSION: Pulmonary edema. Electronically jay d by: Pee Gilliland MD 09/12/2025 08:16 AM [facility] Dictated By: Pee Gilliland MD Signed By: <Electronically signed by Pee Gilliland MD in OV> 09/12/25 0816 DD/ 0803 TD/TT: 09/12/25 0812 Piece Cutter: Glucose, Whole Blood Reviewed date:09/12/2025 10:48:31 AM Interpretation: Performing Lab:[facility], [address] [place] [address] Notes/Report: Glucose, Whole Blood 96 60-115 mg/dL METER # : [id number] Glucose, Whole Blood Reviewed date:09/12/2025 12:25:58 PM Interpretation: Performing Lab:[facility], [address] [place] [address] Notes/Report: Glucose, Whole Blood 152 60-115 mg/dL METER # : [id number] Glucose, Whole Blood Reviewed date:09/13/2025 05:20:08 PM Interpretation: Performing Lab:[facility], [address] [place] [address] Notes/Report: Glucose, Whole Blood 109 60-115 mg/dL METER # : [id number] Glucose, Whole Blood Reviewed date:09/13/2025 05:20:17 PM Interpretation: Performing Lab:[facility], [address] [place] [phone] Notes/Report: Glucose, Whole Blood 199 60-115 mg/dL METER # : [id number] Complete Blood Count Auto Di ff Reviewed date:09/13/2025 05:20:59 PM Interpretation: Performing Lab:[facility], [address] [place] [address] Notes/Report: White Blood Count 9.4 4.8-10.8 X10*3/uL Red Blood Count 3.49 4.60-5.80 X10*6/uL Hemoglobin 10.2 14.0-18.0 g/dl Hematocrit 30.7 42.0-52.0 % Mean Corpuscular Volume 88.0 80.0-98.0 fL Mean Corpuscular Hemoglobin 29.2 27.0-33.0 pg Mean Corpuscular HGB Conc 33.2 31.0-36.0 g/dl Red Cell Distribution Width 15.8 11.0-16.0 % Platelet Count 249 160-400 X10*3/uL Mean Platelet Volume 10.1 9.4-12.4 fL Neutrophils Percent Auto 84.6 45-73 % Imm Gran Pct Auto 0.6 0.0-0.4 % Lymphocytes Percent Auto 9.1 20-40 % Monocytes Percent Auto 5.5 2-11 % Eosinophils Percent Auto 0.0 0-4 % Basophils Percent Auto 0.2 0-2 % NRBC Pct Auto 0.0 0.0-0.2 /100WBC Neutrophils Absolute Auto 8.0 2.0-8.3 x10*3/uL Imm Gran Abs Auto 0.06 0.00-0.03 X10*3/uL Lymphocytes Absolute Auto 0.9 1.2-4.9 X10*3/uL Monocytes Absolute Auto 0.5 0.1-1.2 X10*3/uL Eosinophils Absolute Auto 0.0 0.0-0.4 X10*3/uL Basophils Absolute Auto 0.0 0.0-0.2 X10*3/uL NRBC Abs Auto 0.000 0.0-0.012 X10*3/uL Comprehensive Met. Panel Reviewed date:09/13/2025 05:24:43 PM Interpretation: Performing Lab:[address] [address] Notes/Report: Sodium 137 135-145 mmol/L Potassium 3.6 3.3-5.1 mmol/L Chloride 104 96-108 mmol/L Carbon Dioxide 21 22-29 mmol/L Anion Gap 16 12-20 Blood Urea Nitrogen 28 9-16 mg/dL Creatinine 1.52 0.5-1.4 mg/dL Creatinine Clr Calc Pharmacy 49.4 eGFR (calculated from the MDRD study equation) and eCrCl (calculated from the Cockcroft-Gault equation) are based on different parameters and may not yield comparable results. If eCrCl result is absurd, please check patient's height/weight. Estimated Glomerular Filt Rate 45 Chronic Kidney Disease: Estimated GFR < 60 mL/min/1.73m2 Severe Kidney Disease: Estimated GFR < 15 mL/min/1.73m2 Glucose Random 120 60-115 mg/dL Calcium 8.4 8.4-10.2 mg/dL Test was veri fied by repeat analysis. Bilirubin Total 1.0 0.0-1.0 mg/dL Aspartate Amino Transferase 35 5-37 U/L Alanine Aminotransferase 32 0-40 U/L Total Protein 6.3 6.5-8.0 g/dL Albumin Level 3.8 3.5-5.0 g/dL Alkaline Phosphatase 60 39-117 U/L Magnesium Reviewed date:09/14/2025 08:23:54 PM Interpretation: Performing Lab:[address] [address] Notes/Report: Magnesium 1.6 1.6-2.6 mg/dL Procalcitonin Reviewed date:09/14/2025 08:24:04 PM Interpretation: Performing Lab:[address] [address] Notes/Report: Procalcitonin 0.67 Procalcitonin (PCT) Reference Range: PCT greater than 2.0 ng/mL: A PCT level above 2.0 ng/mL on the first day of ICU admission is associated with a high risk for progression to severe sepsis and/or septic shock. PCT less than 0.5 ng/mL: A PCT level below 0.5 ng/mL on the first day of ICU admission is associated with a low risk for progression to severe sepsis and/or septic shock. PCT levels below 0.5 ng/mL do not exclude an infection. Care must be taken in interpreting PCT results from different laboratories and methodologies. References: [employer]/Society of Critical Care Medicine Consensus Conference Committee. Definitions for sepsis and organ failure and guidelines for the use of innovative therapies in sepsis. Crit Care Med 1992;20(6):864-874. Cirilo B, Krystal KL, Mc H, et al. Calcitonin precursors are reliable markers of sepsis in a medical intensive care unit. Crit Care Med 2000;363:600-607. Saroj S, Gilberto K, Gato C, et al. Diagnostic value of procalcitonin, interleukin-6 and interleukin-8 in critically ill patients admitted with suspected sepsis. AM J Respir Crit Care Med 2001;164:396-402. US Food and Drug Administration. 510(k) substantial equivalence determination decision summary for [facility] PCT VES[facility]. http://www.accessdata. fda.fov/cdrh_docs/revi ews/F932586.pdf. Published November 2004. Accessed April 2017. Creatinine Urine Reviewed date:09/14/2025 08:23:45 PM Interpretation: Performing Lab:[address] [address] Notes/Report: Creatinine Urine 156.62 Sodium Urine Random Reviewed date:09/14/2025 08:23:25 PM Interpretation: Performing Lab:[address] [address] Notes/Report: Sodium Urine Random 48.0 Glucose, Whole Blood Reviewed date:09/13/2025 05:21:57 PM Interpretation: Performing Lab:[address] [address] Notes/Report: Glucose, Whole Blood 123 60-115 mg/dL METER # : [id number] Lyme IgG/IgM [place] Reviewed date:09/16/2025 06:41:34 PM Interpretation: Performing Lab:[address] [place] [address] Notes/Report: Lyme IgG Blot Interp POSITIVE NEGATIVE 18 KD (IgG) Band REACTIVE 23 KD (IgG) Band NON-REACTIVE 28 KD (IgG) Band NON-REACTIVE 30 KD (IgG) Band REACTIVE 39KD (IgG) Band REACTIVE 41KD (IgG) Band REACTIVE 45 KD (IgG) Band NON-REACTIVE 58 KD (IgG) Band REACTIVE 66 KD (IgG) Band REACTIVE 93 KD (IgG) Band REACTIVE Lyme IgM Blot Interp NEGATIVE NEGATIVE 23 KD (IgM) Band NON-REACTIVE 39 KD (IgM) Band NON-REACTIVE 41 KD (IgM) Band REACTIVE Lyme immunoblot testing should only be performed on samples from patients who have had a Positive or Equivocal result in a screening assay. As per CDC criteria, a Lyme disease IgG Immunoblot must show reactivity to at least 5 of 10 specific borrelial proteins to be considered positive; similarly, a positive Lyme disease IgM immunoblot requires reactivity to 2 of 3 specific borrelial proteins. Although considered negative, IgG reactivity to fewer specific borrelial proteins or IgM reactivity to only 1 protein may indicate recent B. burgdorferi infection and warrant testing of a later sample. A positive IgM but negative IgG result obtained more than a month after onset of symptoms likely represents a false- positive IgM result rather than acute Lyme disease. In rare instances, Lyme disease immunoblot reactivity may represent antibodies induced by exposure to other spirochetes. THIS TEST WAS PERFORMED AT: [facility] [address] [address] MARY AMAYA MD Legionella Ag Urine Reviewed date:09/23/2025 08:19:51 AM Interpretation: Performing Lab:[address] [address] Notes/Report: Legionella Ag Urine Not Detected Not Detected This assay is specific for Legionella pneumophila serogroup 1 which causes more than 50% of all Legionella infections. This assay will not detect infections caused by other Legionella species/serogrps. Antigenuria may persist for prolonged periods of time. Legionella pneumophila serogroup 1 antigen can be detected in urine within 2-3 days of infection and may persist even after treatment. This assay does not detect other Legionella species or serogroups. THIS TEST WAS PERFORMED AT: [facility]/[address] [address] GRISELDA RICARDO MD,PHD MRSA Nasal Screen Reviewed date:09/14/2025 08:23:04 PM Interpretation: Performing Lab:[facility], [address] [place] [address] Notes/Report: MRSA Nasal PCR NEGATIVE Negative SA Nasal PCR NEGATIVE Negative MRSA Interpretation SEE NOTE MRSA target DNA not detected; SA target DNA not detected. A MRSA NEGATIVE, SA NEGATIVE test result does not preclude MRSA or SA nasal colonization. Strep Pneumo Ag urine Reviewed date:09/23/2025 08:20:03 AM Interpretation: Performing Lab:[facility], [address] [place] [address] Notes/Report: Strep Pneumo Ag urine Not Detected Not Detected THIS TEST WAS PERFORMED AT: [facility]/[address] [address] GRISELDA RICARDO MD,PHD Tick-borne Disease Molecular Reviewed date:09/16/2025 06:40:59 PM Interpretation: Performing Lab:[facility], [address] [place] [address] Notes/Report: Babesia Microti DNA, RT-PCR NOT DETECTED NOT DETECTED This test was developed and its analytical performance characteristics have been determined by [facility]. It has not been cleared or approved by the [facility]. This assay has been validated pursuant to the CLIA regulations and is used for clinical purposes. THIS TEST WAS PERFORMED AT: [facility] [address] [place] [address] MARY AMAYA MD E.Chaffeensis DNA RT-PCR NOT DETECTED NOT DETECTED This test was developed and its analytical performance characteristics have been determined by [facility]. It has not been cleared or approved by the FDA. This assay has been validated pursuant to the CLIA regulations and is used for clinical purposes. THIS TEST WAS PERFORMED AT: [facility] [address] [place] [address] MARY AMAYA MD A. Phagocytphilium DNA,RT-PCR DETECTED NOT DETECTED This test was developed and its analytical performance characteristics have been determined by [facility]. It has not been cleared or approved by the FDA. This assay has been validated pursuant to the CLIA regulations and is used for clinical purposes. Lyme(Borrelia ssp)DNA RT-PCR NOT DETECTED NOT DETECTED This test was developed and its analytical performance characteristics have been determined by [facility]. It has not been cleared or approved by the FDA. This assay has been validated pursuant to the CLIA regulations and is used for clinical purposes. For additional information, please refer to https://education.[employer]/faq/f aq224 (This link is being provided for informational/ educational purposes only.) THIS TEST WAS PERFORMED AT: [facility] [address] [place] [address] MARY AMAYA MD Borrelia Miyamotoi,DNA RT-PCR NOT DETECTED NOT DETECTED This test was developed and its analytical performance characteristics have been determined by [facility]. It has not been cleared or approved by the FDA. This assay has been validated pursuant to the CLIA regulations and is used for clinical purposes. THIS TEST WAS PERFORMED AT: [facility] [address] [place] [address] MARY AMAYA MD Tick Mol. Panel Cmmt SEE NOTE A negative result does not exclude Borrelia infection as the concentration of the organism in blood may be low or non-existent in patients with Lyme disease, and may depend on timing of specimen collection from onset of symptoms. Clinical correlation is recommended and additional studies such as serologic testing may be indicated. THIS TEST WAS PERFORMED AT: [facility] [address] [place] [address] MARY AMAYA MD Vancomycin Random Reviewed date:09/14/2025 08:24:33 PM Interpretation: Performing Lab:[address] [address] Notes/Report: Vancomycin Random 10.6 15-20 mcg/mL HIV Ab/Ag Reviewed date:09/14/2025 08:23:14 PM Interpretation: Performing Lab:[address] [address] Notes/Report: HIV AB/AG Nonreactive Nonreactive HIV-1 p24 Ag and/or HIV-1/HIV-2 Ab not detected. A test result that is nonreactive does not exclude the possibility of exposure to or infection with HIV-1 and/or HIV-2. Nonreactive results in this assay for individuals with prior exposure to HIV-1 and/or HIV-2 may be due to antigen and antibody levels that are below the limit of detection of this assay. The [employer] HIV Ag/Ab Combo assay result and supplemental assay results should be interpreted in conjunction with the patient's clinical presentation, history and other laboratory results. If the results are inconsistent with clinical evidence, additional testing is suggested to confirm the result. UA ClnCatch+Micro w/rflx Cul t Reviewed date:09/14/2025 08:24:52 PM Interpretation: Performing Lab:[address] [address] Notes/Report: Urine, Clean Catch Color Urine Dark Yellow Appearance Urine Cloudy PH 5.0 5.0-9.0 Glucose Urine UA Negative Negative mg/dL Urine Blood Small (1+) Negative Specific [place] - Urine 1.025 1.005-1.025 Urine Protein 100 (2+) Neg-Trace mg/dL Urine Ketones Trace Negative mg/dL Nitrite Urine Negative Negative Leukocyte Esterase Urine Negative Negative RBC Urine 11-20 0-2 /HPF WBC Urine 0-5 0-5 /HPF Squamous Epithelial Cell Urine 3-5 0-2 /HPF Bacteria Urine None Seen None Seen Hyaline Casts Urine 11-20 0-2 /LPF Lyme IgG/IgM w/reflex to WB Reviewed date:09/16/2025 06:42:01 PM Interpretation: Performing Lab:[address] [phone] Notes/Report: Lyme Abs Screen POSITIVE Lyme Blot 1.48 Index Interpretation ----- < 0.90 Negative 0.90-1.09 Equivocal > 1.09 Positive As recommended by the Food and Drug Administration (FDA), all samples with positive or equivocal results in a Borrelia burgdorferi antibody screen will be tested using a blot method. Positive or equivocal screening test results should not be interpreted as truly positive until verified as such using a supplemental assay (e.g., B. burgdorferi blot). The screening test and/or blot for B. burgdorferi antibodies may be falsely negative in early stages of Lyme disease, including the period when erythema migrans is apparent. THIS TEST WAS PERFORMED AT: [facility] [address] [place] [phone] MARY AMAYA MD NT Pro B Type Natriuretic Pe pt Reviewed date:09/13/2025 05:22:06 PM Interpretation: Performing Lab:[facility], [address] [place] [phone] Notes/Report: NT Pro B Type Natriuretic Pept 3933.7 <300 pg/mL Reference Range: Age Group (years) [...] in the context of other clinical information. Glucose, Whole Blood Reviewed date:09/13/2025 05:22:43 PM Interpretation: Performing Lab:[facility], [address] [place] [phone] Notes/Report: Glucose, Whole Blood 162 60-115 mg/dL METER # : [id number] Glucose, Whole Blood Reviewed date:09/13/2025 05:19:35 PM Interpretation: Performing Lab:[facility], [address] [place] [phone] Notes/Report: Glucose, Whole Blood 151 60-115 mg/dL METER # : [id number] Glucose, Whole Blood Reviewed date:09/14/2025 08:24:23 PM Interpretation: Performing Lab:[facility], [address] [place] [phone] Notes/Report: Glucose, Whole Blood 130 60-115 mg/dL METER # : [id number] Comprehensive Met. Panel Reviewed date:09/14/2025 08:19:44 PM Interpretation: Performing Lab:[facility], [address] [place] [phone] Notes/Report: Sodium 135 135-145 mmol/L Potassium 3.6 3.3-5.1 mmol/L Chloride 103 96-108 mmol/L Carbon Dioxide 23 22-29 mmol/L Anion Gap 13 12-20 Blood Urea Nitrogen 36 9-16 mg/dL Creatinine 1.72 0.5-1.4 mg/dL Creatinine Clr Calc Pharmacy 43.6 eGFR (calculated from the MDRD study equation) and eCrCl (calculated from the Cockcroft-Gault equation) are based on different parameters and may not yield comparable results. If eCrCl result is absurd, please check patient's height/weight. Estimated Glomerular Filt Rate 39 Chronic Kidney Disease: Estimated GFR < 60 mL/min/1.73m2 Severe Kidney Disease: Estimated GFR < 15 mL/min/1.73m2 Glucose Random 157 60-115 mg/dL Calcium 7.9 8.4-10.2 mg/dL Bilirubin Total 0.8 0.0-1.0 mg/dL Aspartate Amino Transferase 41 5-37 U/L Alanine Aminotransferase 34 0-40 U/L Total Protein 6.1 6.5-8.0 g/dL Albumin Level 3.6 3.5-5.0 g/dL Alkaline Phosphatase 60 39-117 U/L Complete Blood Count Auto Di ff Reviewed date:09/14/2025 08:20:10 PM Interpretation: Performing Lab:[facility], [address] [place] [phone] Notes/Report: White Blood Count 9.7 4.8-10.8 X10*3/uL Red Blood Count 3.70 4.60-5.80 X10*6/uL Hemoglobin 10.5 14.0-18.0 g/dl Hematocrit 32.8 42.0-52.0 % Mean Corpuscular Volume 88.6 80.0-98.0 fL Mean Corpuscular Hemoglobin 28.4 27.0-33.0 pg Mean Corpuscular HGB Conc 32.0 31.0-36.0 g/dl Red Cell Distribution Width 15.8 11.0-16.0 % Platelet Count 204 160-400 X10*3/uL Mean Platelet Volume 10.9 9.4-12.4 fL Neutrophils Percent Auto 77.5 45-73 % Imm Gran Pct Auto 0.5 0.0-0.4 % Lymphocytes Percent Auto 16.9 20-40 % Monocytes Percent Auto 4.8 2-11 % Eosinophils Percent Auto 0.0 0-4 % Basophils Percent Auto 0.3 0-2 % NRBC Pct Auto 0.0 0.0-0.2 /100WBC Neutrophils Absolute Auto 7.5 2.0-8.3 x10*3/uL Imm Gran Abs Auto 0.05 0.00-0.03 X10*3/uL Lymphocytes Absolute Auto 1.6 1.2-4.9 X10*3/uL Monocytes Absolute Auto 0.5 0.1-1.2 X10*3/uL Eosinophils Absolute Auto 0.0 0.0-0.4 X10*3/uL Basophils Absolute Auto 0.0 0.0-0.2 X10*3/uL NRBC Abs Auto 0.000 0.0-0.012 X10*3/uL Comprehensive Met. Panel Reviewed date:09/14/2025 08:20:33 PM Interpretation: Performing Lab:[facility], [address] [place] [phone] Notes/Report: Sodium 139 135-145 mmol/L Potassium 3.9 3.3-5.1 mmol/L Chloride 104 96-108 mmol/L Carbon Dioxide 25 22-29 mmol/L Anion Gap 14 12-20 Blood Urea Nitrogen 32 9-16 mg/dL Creatinine 1.24 0.5-1.4 mg/dL Creatinine Clr Calc Pharmacy 60.5 eGFR (calculated from the MDRD study equation) and eCrCl (calculated from the Cockcroft-Gault equation) are based on different parameters and may not yield comparable results. If eCrCl result is absurd, please check patient's height/weight. Estimated Glomerular Filt Rate 57 Chronic Kidney Disease: Estimated GFR < 60 mL/min/1.73m2 Severe Kidney Disease: Estimated GFR < 15 mL/min/1.73m2 Glucose Random 178 60-115 mg/dL Calcium 8.5 8.4-10.2 mg/dL Bilirubin Total 0.9 0.0-1.0 mg/dL Aspartate Amino Transferase 42 5-37 U/L Alanine Aminotransferase 34 0-40 U/L Total Protein 6.4 6.5-8.0 g/dL Albumin Level 3.7 3.5-5.0 g/dL Alkaline Phosphatase 69 39-117 U/L Glucose, Whole Blood Reviewed date:09/14/2025 08:23:35 PM Interpretation: Performing Lab:[facility], [address] [place] [phone] Notes/Report: Glucose, Whole Blood 135 60-115 mg/dL METER # : [id number] Malaria Babesia Smear Reviewed date:09/22/2025 12:35:27 PM Interpretation: Performing Lab:[facility], [address] [place] [phone] Notes/Report: Lab said they can add to the CBC that was drawn this morning rivemar 09/13 Malaria Babesia Smear SEE NOTE MALARIA/BABESIA/OTHER BLOOD PARASITES Micro Number: [id number] Test Status: Final Specimen Source: Blood Specimen Quality: Adequate Giemsa stain: Negative by microscopic examination of a Giemsa stained smear. Due to the cyclical shed rate of these parasites, one negative specimen does not rule out the possibility of a parasitic infection. Examination of specimens collected at 6 hour intervals for 36 hours, provides a comprehensive examination. Reference Range: Negative Performing Sites NL[address] [facility], [address] [place] [phone] Claim Clinician: Mary Amaya M.D. NT Pro B Type Natriuretic Pe pt Reviewed date:09/14/2025 08:18:23 PM Interpretation: Performing Lab:[facility], [address] [place] [phone] Notes/Report: NT Pro B Type Natriuretic Pept 4135.2 <300 pg/mL Reference Range: Age Group (years) [...] in the context of other clinical information. US venous duplex LE BI Reviewed date:09/14/2025 08:19:02 PM Interpretation: Performing Lab: Notes/Report: [address] [place] [address] Ultrasound Report Signed Patient: Nam King MR#: [id number] 6 : 1950 Acct:[id number] Age/Sex: 75 / M ADM Date: 09/11/25 Loc: [facility] 474-[address]: Rand ROBLERO Ordering Physician: Rand Ch Date of Service: 09/14/25 Procedure(s): US venous duplex LE BI Accession Number(s): [id number] cc: Rand Ch; Kevin Mtz MD Reason for Exam: LE swelling, r/o DVT CLINICAL HISTORY: swelling, fever, r/o DVT Bilateral lower extremity venous duplex ultrasound. Comparison: None Findings: Exam was performed using grayscale ultrasound with assistance of color and spectral Doppler. Bilateral common femoral, femoral, popliteal, and deep femoral veins are patent and free of thrombus. The veins are normally compressible and have normal phasic flow and augmentation response. Visualized calf veins are patent. Greater saphenous veins are unremarkable. No Be's cyst is visualized. Incidental note of sluggish flow in bilateral popliteal veins. Impression: 1. No deep vein thrombosis in bilateral lower extremities. 2. Rouleaux flow of bilateral popliteal veins. This document has been electronically signed by: Eliana Alvarez MD on 09/14/2025 16:28:13 Dictated By: Eliana Alvarez MD Signed By: <Electronically signed by Eliana Alvarez MD in OV> 09/14/25 1629 DD/ 1628 TD/TT: 09/14/251627 Piece Cutter: [address] [address] Ultrasound Report Signed Patient: Nam King MR#: [id number] 6 : 1950 Acct:[id number] Age/Sex: 75 / M ADM Date: 09/11/25 Loc: [facility] 474-[address]: Walker ROBLERO Ordering Physician: Rand Ch Date of Service: 09/14/25 Procedure(s): US loretta ous duplex LE BI Accession Number(s): [id number] cc: aRnd Ch; Kevin Mtz MD Reason for Exam: LE swelling, r/o DVT CLINICAL HISTORY: swelling, fever, r/o DVT Bilateral lower extremity venous duplex ultrasound. Comparison: None Findings: Exam was performed using grayscale ultrasound with assistance of color and spectral Doppler. Bilateral common femoral, femoral, popliteal, and deep femoral veins are patent and free of thrombus. The veins are normally compressible and have normal phasic flow a nd augmentation response. Visualized calf vein s are patent. Greater saphenous ve ins are unremarkable. No Be's cyst is visualized. Incidental note of sluggish flow in bilateral popliteal veins. Impression: 1. No deep vein thrombosis in bilateral lower extremities. 2. Rouleaux flow of bilateral popliteal veins. This document has be en electronically signed by: Eliana Alvarez MD on 09/14/2025 16:28:13 Dictated By: Eliana Alvarez MD Signed By: <Electronically signed by Eliana Alvarez MD in OV> 09/14/259 DD/ 27 TD/TT: 09/14/251627 Piece Cutter: XR chest 1V Reviewed date:09/15/2025 04:49:10 PM Interpretation: Performing Lab: Notes/Report: [address] [address] XRay Report Signed Patient: Nam King MR#: [id number] 6 : 1950 Acct:[id number] Age/Sex: 75 / M ADM Date: 09/11/25 Loc: [facility] 474-[address]: Liz Greco MD Ordering Physician: Zhang Jasmine MD Date of Service: 09/14/25 Procedure(s): XR chest 1V Accession Number(s): [id number] cc: Kevin Mtz MD; Zhang Jasmine MD Reason for Exam: Reassess central infiltrates EXAMINATION: XR CHEST CLINICAL INFORMATION: Reassess central infiltrates COMPARISON: September 12, 2025. TECHNIQUE: Frontal view of the chest was obtained. FINDINGS: Submitted for interpretation on 09/15/2025 at 8:38 AM. Bilateral multifocal patchy opacities with pulmonary reticular pattern. No pleural effusion or pneumothorax. Cardiomediastinal silhouette size is normal with a round cardiac apex. Multilevel spondylosis. Degenerative changes in the shoulders. XR/XR chest 1V IMPRESSION: Overall improved aeration since prior exam suggesting chronic interstitial lung disease with the mild interstitial lung edema. Superimposed acute small airway inflammatory versus infectious process cannot be excluded. Electronically signed by: Jerry Segal MD 09/15/2025 08:39 AM EST RP Dictated By: Jerry Currie MD Signed By: <Electronically signed by Jerry Royal MD in OV> 09/15/25 0839 DD/ 1153 TD/TT: 09/14/25 1157 Piece Cutter: [place] [address] XRay Report Signed Patient: Nam King MR#: [id number] 6 : 1950 Acct:[id number] Age/Sex: 75 / M ADM Date: 09/11/25 Loc: [facility] 474-[address]: Liz Greco MD Ordering Physician: Zhang Jasmine MD Date of Service: 09/14/25 Procedure(s): XR nam st 1V Accession Number(s): [id number] cc: Kevin Mtz MD; Zhang Jasmine MD Reason for Exam: Reassess central infiltrates EXAMINATION: XR CHEST CLINICAL INFORMATION: Reassess central infiltrates COMPARISON: September 12, 2025. TECHNIQUE: Frontal view of the chest was obtained. FINDINGS: Submitted for interpretation on 09/15/2025 at 8:38 AM. Bilateral multifocal patchy opacities with pulmonary reticular pattern. No pleural effusion or pneumothorax. Cardiomediastinal silhouette size is normal with a round cardiac apex. Multilevel spondylos is. Degenerative changes in the shoulders. XR/XR chest 1V IMPRESSION: Overall improved aeration since prior exam suggesting chronic interstitial lung disease with the mild interstitial lung edema. Superimposed acute small airway inflammatory versus infectious process cannot be excluded. Electronically jay d by: Jerry Segal MD 09/15/2025 08:39 AM EST RP Dictated By: Jerry Carvajal MD Signed By: <Electronically signed by Jerry Royal MD in OV> 09/15/25 0839 DD/ 1153 TD/TT: 09/14/25 115 Piece Cutter: Glucose, Whole Blood Reviewed date:09/14/2025 08:17:52 PM Interpretation: Performing Lab:[facility], [address] [place] [phone] Notes/Report: Glucose, Whole Blood 155 60-115 mg/dL METER # : [id number] Glucose, Whole Blood Reviewed date:09/14/2025 08:17:21 PM Interpretation: Performing Lab:[facility], [address] [place] [phone] Notes/Report: Glucose, Whole Blood 141 60-115 mg/dL METER # : [id number] Glucose, Whole Blood Reviewed date:09/15/2025 04:47:45 PM Interpretation: Performing Lab:[facility], [address] [place] [phone] Notes/Report: Glucose, Whole Blood 155 60-115 mg/dL METER # : [id number] Glucose, Whole Blood Reviewed date:09/15/2025 04:44:55 PM Interpretation: Performing Lab:[facility], [address] [place] [phone] Notes/Report: Glucose, Whole Blood 119 60-115 mg/dL METER # : [id number] Glucose, Whole Blood Reviewed date:09/15/2025 12:43:45 PM Interpretation: Performing Lab:[facility], [address] [place] [phone] Notes/Report: Glucose, Whole Blood 120 60-115 mg/dL METER # : [id number] Glucose, Whole Blood Reviewed date:09/15/2025 04:41:23 PM Interpretation: Performing Lab:[facility], [address] [place] [phone] Notes/Report: Glucose, Whole Blood 167 60-115 mg/dL METER # : [id number] Glucose, Whole Blood Reviewed date:09/16/2025 06:39:28 PM Interpretation: Performing Lab:[facility], [address] [place] [phone] Notes/Report: Glucose, Whole Blood 107 60-115 mg/dL METER # : [id number] Glucose, Whole Blood Reviewed date:09/16/2025 06:38:07 PM Interpretation: Performing Lab:[facility], [address] [place] [phone] Notes/Report: Glucose, Whole Blood 113 60-115 mg/dL METER # : [id number] Glucose, Whole Blood Reviewed date:09/16/2025 06:37:58 PM Interpretation: Performing Lab:[facility], [address] [place] [phone] Notes/Report: Glucose, Whole Blood 126 60-115 mg/dL METER # : [id number] Glucose, Whole Blood Reviewed date:09/16/2025 06:30:29 PM Interpretation: Performing Lab:[facility], [address] [place] [phone] Notes/Report: Glucose, Whole Blood 129 60-115 mg/dL METER # : [id number] Reason For Referral No Information Medications Medication SIG (Take, Route, Frequency, Duration) Notes Start Date End Date Status Valsartan-hydroCHLOROthiaz jennifer 320-12.5 MG TAKE 1 TABLET BY MOUTH ONCE DAILY Active Tamsulosin HCl 0.4 MG 1 capsule Orally O nce a day for 30 days 08/07/2025 Active Fluticasone Propionate 50 MCG/ACT INHALE 1 SPRAY IN EACH NOSTRIL ONCE A DAY for 60 Active Ventolin HFA 108 (90 Base) MCG/ACT 1 puff as needed Inhalation every 4 hrs for 90 days 01/20/2020 Not-Taking Aspir-81 81 MG 1 tablet Orally Once a day Active Tylenol 8 Hour [...] MG 1 tablet Orally Active Metoprolol Succinate ER 25 MG 1 tablet Orally Once a day for 90 days 10/13/2025 Active Metoprolol Succinate 25 MG 1 capsule Ora lly Once a day for 30 days Active Eliquis 5 MG as directed Orally twice a day for 30 days Active Immunizations Vaccine Route Administration Date Status Comme nts Fluarix Quadrivalent Unknown 09/26/2016 Administered Prevnar 13 IM Intramuscular 03/05/2018 Administered Fluarix Quadrivalent Unknown 07/17/[address] [facility] PPSV23 (Pnemovax) Unknown 06/12/2018 Administered pt wa s given the vaccine at [facility] in [place]. Influenza High Dose Unknown 09/25/[address] [...] W/U Status Risk Notes Problem Atrial fibrillation (90989700) Atrial fibrillation (I48.91) Active confirmed Problem Thyroid nodule (753329708) Thyroid nodule (E04.1) Active confirmed Problem Prostatism (48751083) Prostatism (N40.0) Active confirmed Problem Hypercalcemia (09152535) Hypercalcemia (E83.52) Active confirmed Problem 22311815 Essential hypertension (I10) Active confirmed Problem Solitary nodule of lung (434362296) Lung nodule (R91.1) Active confirmed Problem 20261973 Type 2 diabetes, controlled, 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 confirmed Problem 900614457 History of angioplasty (Z98.62) Active confirmed Problem Left bundle branch block (26470679) LBBB (left bundle branch block) (I44.7) Active confirmed Problem 22342619 Hypercholesterem ia (E78.00) Active confirmed Problem 03992534 DAYRON (obstructive sleep apnea) (G47.33) Active confirmed Problem 79247748 Sinusitis chroni c, frontal (J32.1) Active confirmed Problem 04567516 Acute idiopathic gout involving toe, 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) Active confirmed Problem 08169189 Extrasystoles (I49.49) Active confirmed Problem 01030817 PVC's (premature ventricular contractions) (I49.3) Active confirmed Problem 169806590 Aortic stenosis, moderate (I35.0) Active confirmed Vital Signs Blood pressure diastolic 66 mm Hg 09/22/2025 Height 74 in 10/10/2025 Blood pressure systolic 104 mm Hg 09/22/2025 Weight 226 lbs 10/10/2025 BMI 29.01 kg/m2 10/10/2025 Encounters Encounter Location Date Provider Diagnosis Kevin Mtz MD [address] [place] [id number] 01/27/2025 Kevin Mtz Type 2 diabetes, controlled, 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 and Hypercholesteremia E78.00 Kevin Mtz MD [address] [place] [address] Drive [address] [place] [id number] 07/31/2025 Kevin Mtz Blood tests for rout ine general physical examination Z00.00 ; Encounter for administration of vaccine Z23 ; Essential hypertension I10 ; Type 2 diabetes, controlled, 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 and Hypercholesteremia E78.00 Kevin Mtz MD [address] [place] [id number] 09/11/2025 Kevin Mtz MD [address] [place] [address] Drive [address] [place] [id number] 10/06/2025 Kevin Mtz Lyme disease A69.20 ; Hematuria R31.9 ; Anemia D64.9 and Type 2 diabetes, controlled, 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 Kevin Mtz MD [address] [place] [address] Drive [address] [place] [id number] 10/17/2025 Kevin Mtz Hematuria R31.9 Kevin Mtz MD [address] [place] [id number] 02/03/2025 Kevin Mtz Type 2 diabetes, controlled, 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 ; Hypercholesteremia E78.00 and Essential hypertension I10 Kevin Mtz MD [address] [place] [id number] 08/07/2025 Kevin Mtz Annual physical exam Z00.00 ; Anemia D64.9 ; Nocturia R35.1 ; Prostatism N40.0 ; Elevated BUN R79.9 ; Type 2 diabetes, controlled, 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 ; Hypercholesteremia E78.00 ; Colon cancer screening Z12.11 ; Depression screening Z13.31 and Essential hypertension I10 Kevin Mtz MD [address] [place] [id number] 09/01/2025 Kevin Mtz Influenza J11.1 Kevin Mtz MD [address] [place] [id number] 09/22/2025 Kevin Mtz Lyme disease A69.20 ; LBBB (left bundle branch block) I44.7 and Hematuria R31.9 Kevin Mtz MD [address] [place] [id number] 10/10/2025 Kevin Mtz Lyme disease A69.20 and Atrial fibrillation I48.91 Kevin Mtz MD [address] [place] [address] [id number] 01/20/2025 Kevin Mtz MD [address] [place] [address] [id number] 09/04/2025 Kevin Mtz MD [address] [place] [address] [id number] 09/18/2025 Kevin Mtz MD [address] [place] [address] [id number] 09/22/2025 Kevin Mtz Pulmonary embolism I 26.99 Kevin Mtz MD [address] [place] [address] [id number] 09/29/2025 Kevin Mtz MD [address] [place] [address] [id number] 10/06/2025 Kevin Mtz MD [address] [place] [address] [id number] 10/13/2025 Kevin Mtz MD [address] [place] [address] [id number] 10/13/2025 Kevin Mtz MD [address] [place] [address] [id number] 10/14/2025 Kevin Mtz MD [address] [place] [address] [id number] 10/17/2025 Kevin Mtz Assessments Encounter Date Diagnosis (ICD Code) Assessment Notes Treatment Notes Treatment Clinical Notes Section Notes 01/27/2025 Type 2 diabetes, controlled, with neuropathy (ICD-10 - E11.40) 07/31/2025 Blood tests for routine general physical examination (ICD-10 - Z00.00) 07/31/2025 Encounter for administration of vaccine (ICD-10 - Z23) 10/06/2025 Lyme disease (ICD-10 - A69.20) 10/06/2025 Hematuria (ICD-10 - R31.9) 10/17/2025 Hematuria (ICD-10 - R31.9) 02/03/2025 Type 2 diabetes, controlled, with neuropathy (ICD-10 - E11.40) doing well on meds and exercise 08/07/2025 Annual physical exam (ICD-10 - Z00.00) labs reviewed and discussed with patient 08/07/2025 Anemia (ICD-10 - D64.9) stable, will continue to monitor, future labs ordered 09/01/2025 Influenza (ICD-10 - J11.1) patient verbalized understyanding of medication and directions for use 09/22/2025 Lyme disease (ICD-10 - A69.20) is recovering nicely not in afib any longer 09/22/2025 LBBB (left bundle branch block) (ICD-10 - I44.7) is chronic/ has a first degree block/ is seeimg cardology in few weeks 10/10/2025 Lyme disease (ICD-10 - A69.20) patient [...] and they don't keep peoople on anticoagulants senior care. i am not sure if that is the case with a swvere illness like he had and he should discuss that with his engineer specialist 09/22/2025 Pulmonary embolism (ICD-10 - I26.99) Mailed to patient to be done 1 month 01/27/2025 Hypercholesteremia (ICD-10 - E78.00) 07/31/2025 Essential hypertension (ICD-10 - I10) 10/06/2025 Anemia (ICD-10 - D64.9) 02/03/2025 Hypercholesteremia (ICD-10 - E78.00) 08/07/2025 Nocturia (ICD-10 - R35.1) 07/31/2025 Type 2 diabetes, controlled, with neuropathy (ICD-10 - E11.40) 10/06/2025 Type 2 diabetes, controlled, with neuropathy (ICD-10 - E11.40) 02/03/2025 Essential hypertension (ICD-10 - I10) stable, will cntiue current regiment 08/07/2025 Prostatism (ICD-10 - N40.0) patient verbalized understanding of medication and directions for use 09/22/2025 Hematuria (ICD-10 - R31.9) pending labs 07/31/2025 Hypercholesteremia (ICD-10 - E78.00) 08/07/2025 Elevated [...] Test Test Name Order Date Electrocardiogram (EKG) 09/22/2025 Electrocardiogram (EKG) 06/14/2018 Electrocardiogram (EKG) 06/14/2019 XR CHEST 2 VIEW PA & LAT 10/11/2019 US BIOPSY NEEDLE GUIDE 09/01/2023 US THYROID 08/22/2023 US thyroid 08/15/2023 US thyroid 08/17/2023 XR chest 2V 09/22/2025 Next Appt Details Provider Name:Kevin Hernandez ier, 02/10/2026 07:30:00 AM, [address] [place] [address], [address], [phone], Provider Name:Kevin Hernandez ier, 02/17/2026 10:00:00 AM, [address] [place] [address], [address], [phone], Provider Name:Kevin Hernandez ier, 08/03/2026 07:30:00 AM, [address] [place] [address], [address], [phone], Provider Name:Kevin Hernandez ier, 08/10/2026 10:30:00 AM, [address] [place] [address], [address], [phone], Insurance Providers Payer Name Payer Address Payer Phone Subscriber Number Group Number Insured Name Patient Relationship to Insured Coverage Start Date Coverage End Date [employer] PLAN [address] [place] [phone] [id number] Nam King Self - patient is the insured MEDICARE NHIC [employer] [address] [place] [address] [id number] Nam King Self - patient is the insured Medical (General) History Medical History History ICD Code colonoscopy done 2010 and wa s normal; 12/13/18; Colonoscopy 08/28/[address] Valencia - normal Type 2 diabetes mellitus wit hout complication, without long-term current use of insulin E11.9 Type 2 diabetes mellitus wit hout complication, without long-term current use of insulin
--- OUTSIDE RECORDS SUMMARY | 2025-10-29 11:36 | XMS_ITS | Clinical Summary ---
Author Organization [facility] Address [address] [place] [id number] Phone Care Team Providers Care Real Estate Services Coordinator Name Role Phone Kevin Mtz MD [...] this topic Medical Devices Implanted Type Area Palliative Nurse Device Identifier Shelf Expiration Date Model / Serial / Lot Bone Cement Antibiotic Refobacin - [id number] Implanted:Qty: 1 on 05/10/2023 by Alex Moralez MD at [facility] Left: Knee [employer] 06/05/2025 [id number] / / [id number] Bone Cement Antibiotic Refobacin - [id number] Implanted:Qty: 1 on 05/10/2023 by Alex Moralez MD at [facility] Left: Knee [employer] 06/05/2025 [id number] / / [id number] Knee Implant Sz 12 Component Femoral Persona Ps Napoleon Cemented Std Lt - [id number] Implanted:Qty: 1 on 05/10/2023 by Alex Moralez MD at [facility] Left: Knee [employer] 04/23/2032 [id number] / / [id number] Knee Patella 10.0x41mm Persona All Polyethylene Cemented Conventional - [id number] Implanted:Qty: 1 on 05/10/2023 by Alex Moralez MD at [facility] Left: Knee [employer] 01/27/2027 [id number] / / [id number] Knee Implant 5.0deg Component Tibial Persona Titanium Stemmed Cemented Lt Size H - [id number] Implanted:Qty: 1 on 05/10/2023 by Alex Moralez MD at [facility] Left: Knee [employer] 09/06/2032 [id number] / / [id number] Knee Insert 11mm L 10 12 Component Surface Persona Ps Polyethylene Fixed Conventional Lt Fem Tib Gh - [id number] Implanted:Qty: 1 on 05/10/2023 by Alex Moralez MD at [facility] Left: Knee [employer] 09/12/2027 [id number] / / [id number] Procedures Procedure Name Priority Date/Time Associated Diagnosis Comments BASIC METABOLIC PANEL (BMP) Routine 03/24/2023 9:12 AM EDT Primary localized osteoarthrosis of right lower leg from Last 3 Months or Most Recently Relevant to Health Maintenance Results * (ABNORMAL) Basic metabolic panel (03/24/2023 9:12 AM EDT) SODIUM 141 133 - 146 mmol/L [facility] CHLORIDE 102 96 - 108 mmol/L [facility] POTASSIUM 4.5 3.3 - 5.1 mmol/L [facility] CO2 28 21 - 35 mmol/L [facility] BUN 17 6 - 19 mg/dL [facility] CREATININE 0.90 0.5 - 1.5 mg/dL [facility] GLUCOSE 136(H) 70 - 99 mg/dL [facility] CALCIUM 10.2 8.4 - 10.3 mg/dL [facility] EGFR 90 >59 mL/min/1.7 3m2 [facility] Comment:Estimated glomerular filtration rate calculated using the CKD-EPI refit equation. ANION GAP 16 10 - 20 mmol/L [facility] Blood 03/24/2023 9:12 AM EDT 03/24/2023 9:19 AM EDT us Alex Moralez MD LAB BLOOD BKR ORDERABLES Saige edward Result [facility] [address] [place] [address] from Last 3 Months or Most Recently Relevant to Health Maintenance [place] [address] [place] [address] MEDICARE HMO REPLACEMENT MEDICARE HMO REPLACEMENT MEDICARE HMO REPLACEMENT MEDICARE HMO REPLACEMENT MEDICARE HMO REPLACEMENT [facility] [place] MEDICARE HMO REPLACEMENT [facility] [place] MEDICARE HMO REPLACEMENT MEDICARE HMO REPLACEMENT [facility] [place] MEDICARE HMO REPLACEMENT Care Teams Real Estate Services Coordinator Relationship Specialty Start Date End Date Kevin Mtz MD [address] [place] [address] Dr KITCHEN [address] [place] [address] [place] [address] PCP - General Internal Medicine 12/31/20 Additional Source Comments The information contained in this document represents components of the legal health record. It is not the complete legal health record.[facility]
--- OUTSIDE RECORDS SUMMARY | 2025-10-29 11:36 | XMS_ITS | Clinical Summary ---
Author Organization [facility] Address [address] [place] [address] Care Team Providers Care Swimming Pool Installer And Servicer Name Role Phone Unavailable Primary Care Provider [...] 75+ series) 02/03/2024 COVID-19 Vaccine ( - 2024-2 6 season) 2025 Hepatitis B Vaccines Aged Out No long er eligible based on patient's age to complete this topic
--- OUTSIDE RECORDS SUMMARY | 2025-10-29 11:36 | XMS_ITS | Encounter Summary ---
Author Organization [facility] Address [address] [place] [address] Phone Care Team Providers Care Veneer Marker Name Role Phone Kevin Mtz MD Primary Care Provider Encounter Details Date Type Department Care Team (Late st Contact Info) Description 04/25/2023 Ancillary Orders [address] [address] Alice Ahumada PA-C [address] [place] [address] Orthopedics & Sports Medicine, [place] [address] [email or web address] Left knee pain, unspecified chronicity Social History [...] chronicity documented in this encounter Care Teams Veneer Marker Relationship Specialty Start Date End Date Kevin Mtz MD [address] [place] [address] [place] [address] PCP - General Internal Medicine 12/31/20 documented as of this encounter Additional Source Comments The information contained in this document represents components of the legal health record. It is not the complete legal health record.[facility]
--- OUTSIDE RECORDS SUMMARY | 2025-10-29 11:36 | XMS_ITS | Encounter Summary ---
Author Organization [facility] Address [address] [facility] [address] [place] [address] Phone Care Team Providers Care Operator And Truck Driver Name Role Phone Kevin Mtz MD Primary Care Provider Encounter Details Date Type Department Care Team (Late st Contact Info) Description 05/10/2023 Procedure Pass OR Admitting Dept - Virtual Department [address] [place] [address] Social History Tobacco Use Types Packs/Day Years [...] on filedocumented in this encounter Care Teams Operator And Truck Driver Relationship Specialty Start Date End Date Kevin Mtz MD [address] [place] [address] [place] [address] PCP - General Internal Medicine 12/31/20 documented as of this encounter Additional Source Comments The information contained in this document represents components of the legal health record. It is not the complete legal health record.[facility]
== END 2025-10-29 11:28 | disposition home or self-care (01) ==
LOC: HO.XRAY 11:27
PROVIDERS: PCP Internal Medicine; Visit Provider Internal Medicine
DX: I13.0 Hypertensive heart and chronic kidney disease with heart failure and stage 1 through stage 4 chronic kidney disease, or unspecified chronic kidney disease (principal); E11.22 Type 2 diabetes mellitus with diabetic chronic kidney disease; N18.31 Chronic kidney disease, stage 3a; I50.42 Chronic combined systolic (congestive) and diastolic (congestive) heart failure; I48.19 Other persistent atrial fibrillation; E11.8 Type 2 diabetes mellitus with unspecified complications; A69.29 Other conditions associated with Lyme disease; Z79.01 Long term (current) use of anticoagulants; Z79.899 Other long term (current) drug therapy; Z87.891 Personal history of nicotine dependence
CPT/HCPCS: 71046; 93005; 99212

== ENCOUNTER → 2025-10-29 11:31 | Outpatient (BNV) | payer MEDICARE, SELFPAY | PROVIDERS: PCP Internal Medicine; Visit Provider Radiology Diagnostic Radiology | DX: J98.4 Other disorders of lung (principal) | CPT/HCPCS: 71046 ==

== ENCOUNTER 2025-10-29 13:09 | Outpatient (AMB) | payer MEDICARE, SELFPAY ==
[2025-10-29 13:23] VITALS: BP 110/56; PULSE 50; BMI 25.5
--- NOTE | 2025-10-29 13:23 | MHC.OFFVIS ---
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: No Accompanied by: Self / Same As Patient Allergies No Known Allergies (No Known Allergies*) Allergy (Verified 10/01/25 15:23) Medication List - Last Reconciled 10/29/25 by Oral Escudero MD amlodipine 10 mg PO DAILY apixaban (Eliquis) 5 mg PO BID atorvastatin 80 mg PO BEDTIME fluticasone propionate 50 mcg/actuation 1 spray intranasal DAILY metformin ER 500 mg PO BID metoprolol succinate ER 25 mg See Protocol PO DAILY multivitamin 1 tab PO DAILY spironolactone 25 mg PO DAILY valsartan-hydrochlorothiazide 320-12.5 mg 1 tab PO DAILY HPI Comments Details: Nam returns for follow-up regarding various cardiac issues. Multiple cardiac risk factors including type 2 diabetes, hypertension, dyslipidemia. Due to abnormal EKG findings, he underwent further workup with the stress test did not to diagnostic catheterization and right coronary artery stenting. Recently, admitted to the hospital with weight loss and poor appetite and in that setting, had atrial fibrillation with rapid rate. It seems that he also was diagnosed concurrently with Lyme disease. He has received antibiotics appropriately. With regard to the atrial fibrillation itself, the recent Holter monitor shows that he is back to normal sinus rhythm. Echocardiogram had some LV dysfunction probably related to the atrial fibrillation itself. Unclear if he had any carditis from Lyme disease. Any case, he states he is feeling better now. No clear-cut cardiac symptoms. 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 [facility], [facility] Medical History (Updated 10/29/25 @ 14:01 by Oral Escudero MD) Type 2 diabetes mellitus with unspecified complications Anaplasmosis Lyme carditis Lyme disease Fever of unknown origin Thrombocytopenia New onset a-fib Paroxysmal A-fib Trace mitral valve regurgitation Essential hypertension Bone spur of ankle Arthritis Back pain Sleep apnea with use of continuous positive airway pressure (CPAP) Hyperlipidemia Hypertension Surgical History History of total left knee replacement H/O varicose vein ligation Hx of laparoscopic gastric banding History of colonoscopy Family History Father No problems noted. Mother No problems noted. 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 Tobacco Use Status: Former Tobacco user Tobacco use type: Cigarette Years Smoked: 5 +/- e-Cigarette/Vaping Use: Former Use Second Hand Smoke Exposure: No service: No Review of Systems Const Denies chills, Denies fatigue, Denies fever(s), Denies frequent falls, Denies weakness, Denies weight gain and Denies weight loss ENT Denies dizziness Card Denies chest pain, Denies leg edema, Denies lightheadedness, Denies palpitations, Denies dyspnea and Denies dyspnea on exertion Resp Denies cough, Denies dyspnea and Denies dyspnea on exertion GI Denies hematochezia Musc Denies abnormal gait, Denies muscle weakness, Denies numbness, Denies radiating pain into limb and Denies tingling Neuro Denies abnormal gait, Denies dizziness, Denies frequent falls, Denies numbness, Denies tingling and Denies weakness Endo Denies fatigue and Denies palpitations Physical Exam Vital Signs: Last Vital Signs Pulse 50 10/29/25 13:23 BP 110/56 L 10/29/25 13:23 BMI result Body Mass Index 25.5 Const General: comfortable and no acute distress Orientation/consciousness: patient oriented x3 HEENT Other: Unremarkable Head: Yes normal to inspection Neck Neck: Yes normal visual inspection Chest Chest palpation & inspection: normal inspection of the chest Resp Auscultation: clear to auscultation bilaterally Cardio Palpation: normal PMI Heart sounds: S1 normal heart sound present, S2 normal heart sound present, no gallops, Murmur heart sound present systolic II/ and at the apex and no rubs GI Palpation (GI): Soft to palpation Back/Spine/Pelvis Other: unremarkable Skin General skin exam: no rashes or lesions noted Neuro General: patient oriented x3 Extrem General: Yes normal to inspection Psych Mental Status: mental status grossly normal Office Procedures EKG Details: EKG with sinus bradycardia at 55/Min with mild NV prolongation to 224 millisecond; nonspecific intraventricular conduction defect; [place] [address]-[id number], Complete Assessment & Plan Assessment & Plan (1) Atherosclerotic cardiovascular disease: Code(s): I25.10 - Atherosclerotic heart disease of [place] coronary artery without angina pectoris Category: Medical Plan: Cardiac catheterization 2023-severe proximal PDA stenosis status post PCI. Nonobstructive disease to LAD and circumflex. Continue statins. No concurrent need for aspirin as he is also on Eliquis. (2) Chronic combined systolic and diastolic CHF (congestive heart failure): Code(s): I50.42 - Chronic combined systolic (congestive) and diastolic (congestive) heart failure Category: Medical Plan: In the recent echocardiogram, LVEF is 40-45%. Could be related to atrial fibrillation. We can recheck that now he is back to normal sinus rhythm. Clinically, no heart failure symptoms or signs. (3) Persistent atrial fibrillation: Code(s): I48.19 - Other persistent atrial fibrillation Category: Medical Plan: Per recent Holter monitor as well as today's EKG, he is back to normal sinus rhythm. Continue beta-blockers and anticoagulation. (4) Hypertension: Code(s): I10 - Essential (primary) hypertension Category: Medical Qualifiers: Hypertension type: primary hypertension Qualified Code(s): I10 - Essential (primary) hypertension Plan: Stable. On amlodipine, spironolactone, valsartan/HCTZ. (5) Type 2 diabetes mellitus with unspecified complications: Code(s): E11.8 - Type 2 diabetes mellitus with unspecified complications Category: Medical Plan: On metformin. Hemoglobin A1c is 6.3%. 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 Has completed antibiotics. We will recheck echo before next visit. Plan I reviewed the patient's EKG with him, noting that his heart is in a normal rhythm. I explained the necessity of continuing Eliquis to reduce his high risk of stroke associated with atrial fibrillation and his age, and metoprolol to help control his heart rhythm. I advised him to discontinue Aspirin, as it is not required while on Eliquis. A follow-up echocardiogram is planned for January 28 to re-evaluate his heart function, and I recommended a follow-up appointment with me in February to review the results. Patient was informed and verbally consented to the use of an ambient scribe for clinic note documentation during this visit. Coding Level of Care Code Est Pt Level 4 (06552) Add On Problem Visit Only Diagnoses Atherosclerotic cardiovascular disease I25.10 Chronic combined systolic and diastolic CHF (congestive heart failure) I50.42 Persistent atrial fibrillation I48.19 Primary hypertension I10 Hypertension type: primary hypertension Type 2 diabetes mellitus with unspecified complications E11.8 Lyme carditis A69.29 CPT Codes EKG - CPT: 47708-[id number], Complete ([id number])
== END 2025-10-29 13:49 | disposition home or self-care (01) ==
LOC: HO.HCS 13:10
PROVIDERS: Visit Provider Internal Medicine
DX: I25.10 Atherosclerotic heart disease of native coronary artery without angina pectoris (principal); I50.42 Chronic combined systolic (congestive) and diastolic (congestive) heart failure; I48.19 Other persistent atrial fibrillation; I10 Essential (primary) hypertension; E11.8 Type 2 diabetes mellitus with unspecified complications; A69.29 Other conditions associated with Lyme disease
CPT/HCPCS: 93010; 99214; G2211

== ENCOUNTER 2025-10-29 14:28 | Outpatient (AMB) | payer MEDICARE, SELFPAY ==
--- NOTE | 2025-10-29 14:30 | HO.NEPHOV ---
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 In the ER, he was found to be in new onset atrial fibrillation with rapid ventricular response however his heart rate has been below 100s. Initially his blood pressure was low with systolic blood pressure in the 70s. He was taking ARB/Diuretics. He was given 1 L of IV fluid which did help bring up his blood pressure systolically to the 90s. Chest x-ray negative for any acute abnormality, head CT negative for any trauma, cervical spine CT showing no acute fracture. He was found to have WILIAN which improved with supportive management. He was treated and D/Kulwinder but presented to hospital again with change in mental status, low BP and fever. Given his history of being around pets and long walks and a tick bite 2 weeks ago, patient was started on doxycycline and ceftriaxone. During this time, extensive workup has been done like echo, blood cultures, TTE , respiratory panel, CT abdomen pelvis, UA, HIV , prosthetic knee workup thus far negative. However patient spiked fevers of 103 and 104 and hence antibiotics had to be expanded to meropenem. He is here for follow up. [facility] Medical History (Updated 10/29/25 @ 14:36 by Guicho Olivo MD) Type 2 diabetes mellitus with unspecified complications Anaplasmosis Lyme carditis Lyme disease Fever of unknown origin Thrombocytopenia New onset a-fib Paroxysmal A-fib Trace mitral valve regurgitation Essential hypertension Bone spur of ankle Arthritis Back pain Sleep apnea with use of continuous positive airway pressure (CPAP) Hyperlipidemia Hypertension Surgical History History of total left knee replacement H/O varicose vein ligation Hx of laparoscopic gastric banding History of colonoscopy Family History Father No problems noted. Mother No problems noted. Social History Household Members: Spouse Housing: House Are you a primary outdoor emergency care technician to a significant other at home: No Do you presently have visiting nurse or other home services: No Alcohol intake: current Alcohol intake frequency: holidays/special occasions only Comment: standby assist Patient Tobacco Use Status: Former Tobacco user Tobacco use type: Cigarette Years Smoked: 5 +/- e-Cigarette/Vaping Use: Former Use Second Hand Smoke Exposure: No service: No Review of Systems Const All systems reviewed & are unremarkable except as noted in HPI and below Physical Exam Vital Signs: Last Vital Signs Pulse 53 10/29/25 14:31 BP 128/60 10/29/25 14:31 Pulse Ox 100 10/29/25 14:31 Oxygen Delivery Method Room Air 10/29/25 14:31 BMI result Body Mass Index 25.4 Const General: comfortable and no acute distress Orientation/consciousness: patient oriented x3 HEENT Head: Yes normocephalic Mouth: Normal oral and palatal mucosa present Eyes EOM: EOMs intact bilaterally Neck Neck: Yes supple Resp Auscultation: clear to auscultation bilaterally Cardio Jugular venous distension: no JVD Rate: regular rate GI Palpation (GI): Soft to palpation Auscultation: normal bowel sounds General: Yes no CVA tenderness Back/Spine/Pelvis Back: no CVA tenderness Skin General skin exam: no rashes or lesions noted Neuro General: patient oriented x3 and moves all extremities Extrem General: Yes no pedal edema Results Reviewed Nephrology Results: Hgb, (14.0-18.0) 11.3 g/dl L 10/06/25 WBC, (4.8-10.8) 5.7 X10*3/uL 10/06/25 Plt Count, (160-400) 232 X10*3/uL 10/06/25 Sodium, (135-145) 142 mmol/L 10/06/25 Potassium, (3.3-5.1) 5.0 mmol/L 10/06/25 Chloride, (96-108) 110 mmol/L H 10/06/25 Carbon Dioxide, (22-29) 25 mmol/L 10/06/25 BUN, (9-16) 26 mg/dL H 10/06/25 Creatinine, (0.5-1.4) 1.34 mg/dL 10/06/25 Calcium, (8.4-10.2) 9.5 mg/dL Δ 10/06/25 Urine Protein, (Neg-Trace) Negative mg/dL 10/17/25 Urine Creatinine 75.98 mg/dL 10/06/25 Protein/Creatinin Ratio, (<0.2) 0.17 09/22/25 Assessment & Plan Assessment & Plan (1) CKD stage 3a, GFR 45-59 ml/min: Code(s): N18.31 - Chronic kidney disease, stage 3a Category: Medical (2) Hypertension: Code(s): I10 - Essential (primary) hypertension Category: Medical Qualifiers: Hypertension type: primary hypertension Qualified Code(s): I10 - Essential (primary) hypertension Plan WILIAN due to tubular injury resolved ; Has CKD 3 from vascular disease UO good; Serum creatinine close to baseline Continue to ARB/Diuretic & Spironolactone AM with Amlodipine PM Labs as ordered; F/U 6 months Orders: Orders Creatinine 4 Months I10 - Essential (primary) hypertension, N18.31 - Chronic kidney disease, stage 3a Blood Urea Nitrogen 4 Months I10 - Essential (primary) hypertension, N18.31 - Chronic kidney disease, stage 3a Electrolytes 4 Months I10 - Essential (primary) hypertension, N18.31 - Chronic kidney disease, stage 3a Creatinine 2 Months I10 - Essential (primary) hypertension, N18.31 - Chronic kidney disease, stage 3a Electrolytes 2 Months I10 - Essential (primary) hypertension, N18.31 - Chronic kidney disease, stage 3a Blood Urea Nitrogen 2 Months I10 - Essential (primary) hypertension, N18.31 - Chronic kidney disease, stage 3a Coding Level of Care Code Est Pt Level 4 (86326) Diagnoses CKD stage 3a, GFR 45-59 ml/min N18.31 Primary hypertension I10 Hypertension type: primary hypertension
[2025-10-29 14:31] VITALS: BP 128/60; PULSE 53; O2SAT 100; BMI 25.4
== END 2025-10-29 15:00 | disposition home or self-care (01) ==
LOC: HO.HKA 14:29
PROVIDERS: PCP Internal Medicine; Visit Provider Internal Medicine Nephrology
DX: N18.31 Chronic kidney disease, stage 3a (principal); I10 Essential (primary) hypertension
CPT/HCPCS: 99214